=== PATIENT | female | born 1950 | race Caucasian/White ===

== ENCOUNTER 2016-08-26 09:27 | Emergency (ER) | payer OTHER ==
[~2016-08-26] VITALS: Ht 162.6 cm; Wt 81.0 kg
[~2016-08-26 09:27] MED LIST: ASPI81TA28 PO; CARB1SOL OPB; CHOL20005 PO; CLOP1TAB54 PO; DONE1TAB25 PO; FOLI1TAB7 PO; GABA-113 PO; GLCSC500400 PO; HYDR-5688 PO; INSU70IN2 SC; LISI-729 PO; LPT/40 PO; MAGN400T6 PO; METF-384 PO; MIRT30TA PO; MULT60CA PO; PANT40TA PO; ROPI1TAB PO; TRAZ50TA35 PO
[2016-08-26 09:33] VITALS: TEMP 36.9; Ht 162.6 cm; Wt 81.0 kg
[2016-08-26] MEDS ORDERED: LIDOCAINE 4% W/AFRIN NASAL SOLN 4ML EXT STA (09:41)
--- NOTE | 2016-08-26 10:07 | EMERGENCY ROOM VISIT NOTE ---
History Report prepared by Samantha: Fabian Lora Under the Supervision of: Dr. Randal Ye M.D. First contact with patient: 09:40 Chief Complaint: NOSE BLEED (MINOR) Stated Complaint: NOSEBLEED History of Present Illness The patient is a 65 year old female who presents to the Emergency Room with complaints of persistent nose bleeding since 1000 yesterday. The nose was bleeding intermittently yesterday and has been constant this morning. She has been saturating tissues every few hours. She does not have blood draining in her throat. The patient takes Aspirin and Plavix daily, including this morning. The patient cannot recall why she is taking Plavix. She has followed up with an ENT in the past, but neither her nor her son can recall their name. The patient notes that she hit her head several days ago during a fall. Source of History: patient, family (son) Onset: 1000 yesterday Position: nose Quality: other (bleeding) Timing: other (persistent) Review of Systems See HPI for pertinent positives & negatives. A total of 10 systems reviewed and were otherwise negative. Past Medical & Surgical Medical Problems: (1) cardiac history (2) COPD (chronic obstructive pulmonary disease) (3) Diabetes (4) HTN (hypertension) (5) Pneumonia Family History CHF (congestive heart failure) Diabetes mellitus FHx: stroke Heart disease Social History Smoking Status: Former Smoker Alcohol Use: none Drug Use: none Marital Status: Housing Status: other Occupation Status: retired Current/Historical Medications Scheduled Aspirin (Aspirin Ec), 81 MG PO QAM Atorvastatin (Lipitor), 40 MG PO HS Cholecalciferol (Vitamin D3), 2,000 INTERUNIT PO QAM Clopidogrel Bisulfate (Plavix), 75 MG PO QAM Donepezil Hydrochloride (Donepezil Hcl), 5 MG PO HS Folic Acid (Folvite), 1 MG PO QAM Gabapentin (Neurontin), 300 MG PO TID Glucosamine-Chondroitin (Glucosamine & Chondroitin 500-400 mg), 1 CAP PO TID Insulin Isophan/Regular (Novolin 70/30), 75 UNITS SC AMPM Lisinopril (Prinivil), 5 MG PO QAM Magnesium Oxide (Mag-Ox), 400 MG PO QAM Metformin Hcl (Glucophage), 1,000 MG PO BID Mirtazapine (Remeron), 30 MG PO HS Multiple Vitamins W/ Minerals (Preservision Areds 2), 1 CAP PO BID Pantoprazole (Protonix), 40 MG PO QAM Trazodone Hcl (Trazodone), 50 MG PO HS Scheduled PRN Carboxymethylcellulose Sodium (Refresh), 1 DROP OPB QID PRN for DRYNESS Hydrocodone/Acetaminophen 5MG/325MG ([place] 5MG/325MG), 1 TABLET PO Q6H PRN for Pain Ropinirole (Requip), 1 MG PO HS PRN for RLS Allergies Coded Allergies: Methyl Salicylate (Verified Allergy, Unknown, RASH, 08/26/16) Nickel (Verified Allergy, Unknown, RASH, 08/26/16) Zinc (Verified Allergy, Unknown, RASH, 08/26/16) Diphenhydramine (Verified Adverse Reaction, Intermediate, BURNING EYES, DIZZY,BLISTERS, 08/26/16) Physical Exam Vital Signs Date Time Temp Pulse Resp B/P Pulse Ox O2 Delivery O2 Flow Rate FiO2 08/26/16 11:09 78 16 123/50 95 08/26/16 09:33 36.9 81 18 113/69 96 Room Air Physical Exam GENERAL: Patient is a healthy-appearing well-nourished HEAD: Normocephalic atraumatic EYES: Ocular movements intact pupils equal and react to light NOSE: Bleeding from the right nares, no blood running down the back of her throat. OROPHARYNX mucous membranes are moist no exudates present no erythema or edema present, no blood running down the back of her throat. NECK: Supple no nuchal rigidity CHEST: Good equal expansion LUNGS: Clear and equal to auscultation CARDIAC: Normal S1 and S2 ABDOMEN: Soft nontender no guarding BACK: No CVA tenderness EXTREMITIES: No pain upon palpation normal muscle strength in all groups no clubbing cyanosis or edema NEURO: Patient is following commands is answering questions appropriately. Alert and oriented x3 Cranial Nerves 2-12 grossly intact Medical Decision & Procedures ER Provider Diagnostic Interpretation: CT results as stated below per my review and radiologist interpretation: CT HEAD WITHOUT CONTRAST (CT) CLINICAL HISTORY: Head pain status post trauma COMPARISON STUDY: 06/04/2016 TECHNIQUE: Axial CT of the brain is performed from the vertex to the skull base. IV contrast was not administered for this examination. CT DOSE: 614.27 mGy.cm FINDINGS: No intra or extra-axial mass lesions are visualized. There is no CT evidence of acute cortical infarction. There is no evidence of midline shift. There is no acute hemorrhage. No calvarial fractures are visualized. There are minimal white matter hypodensities likely on a small vessel basis. There is no evidence of pathologic ventricular dilatation. Again evident is a probable empty sella. There is no evidence of acute sinusitis IMPRESSION: No acute intracranial findings Electronically signed by: Cristhian Frost M.D. 08/26/2016 10:43 AM Dictated Date/Time: 08/26/2016 10:39 AM Procedure Anterior Nasal Packing Indication: Epistaxis right nares. Verbal consent obtained. Risks and benefits were explained with the usual customary discussion. A time out was taken. Clots were removed with suction. The right naris was prepped with Afrin and lidocaine. A 5.5-cm nasal balloon was placed in a standard fashion. The patient tolerated this well. Hemostasis was achieved. No complications. ED Course 0941: The patient was evaluated by my Nurse Practitioner student. 0956: Past medical records reviewed. The patient was evaluated in room A11b. A complete history and physical examination was performed. 1056: Reassessed the patient. She is not currently experiencing active bleeding. The patient verbalized understanding and agreement of the treatment plan. 1105: The patient is ready for discharge. Medical Decision This is a 65-year-old female who presents emergency department complaining of epistaxis. The bleeding is controlled by tissues upon arrival to the emergency department. The nose was packed as above. The patient was also complaining of head pain after a fall at home. The patient is on Plavix therefore she was sent for CAT scan of the head however this does not show any acute abnormality. After an hour the patient was reassessed the bleeding was still controlled and I felt she was well enough to be discharged home for follow-up with ear nose and throat. Patient was in agreement with the treatment plan. Impression Primary Impression: Head injury Additional Impression: Epistaxis Scribe Attestation The scribe's documentation has been prepared under my direction and personally reviewed by me in its entirety. I confirm that the note above accurately reflects all work, treatment, procedures, and medical decision making performed by me. Departure Information Dispostion Home / Self-Care Referrals Maury Bond M.D. (PCP) Forms HOME CARE DOCUMENTATION FORM, IMPORTANT VISIT INFORMATION, WORK / SCHOOL INSTRUCTIONS Patient Instructions ED Nasal Packing Anterior Removable, ED Nosebleed, [facility] Additional Instructions Follow up with DR Antunez's office You have been examined and treated today on an emergency basis only. This is not a substitute for, or an effort to provide, complete comprehensive medical care. It is impossible to recognize and treat all injuries or illnesses in a single emergency department visit. It is therefore important that you follow up closely with your PCP. Call as soon as possible for an appointment. Thank you for your time and consideration. I look forward to speaking with you again soon. Please don't hesitate to call us if you have any questions. Problem Qualifiers Primary Impression: Head injury Encounter type: initial encounter Qualified Codes: S09.90XA - Unspecified injury of head, initial encounter
--- NOTE | 2016-08-26 10:45 | DIAGNOSTIC IMAGING REPORT ---
CT HEAD WITHOUT CONTRAST (CT) CLINICAL HISTORY: Head pain status post trauma COMPARISON STUDY: 06/04/2016 TECHNIQUE: Axial CT of the brain is performed from the vertex to the skull base. IV contrast was not administered for this examination. CT DOSE: 614.27 mGy.cm FINDINGS: No intra or extra-axial mass lesions are visualized. There is no CT evidence of acute cortical infarction. There is no evidence of midline shift. There is no acute hemorrhage. No calvarial fractures are visualized. There are minimal white matter hypodensities likely on a small vessel basis. There is no evidence of pathologic ventricular dilatation. Again evident is a probable empty sella. There is no evidence of acute sinusitis IMPRESSION: No acute intracranial findings Electronically signed by: Cristhian Frost M.D. 08/26/2016 10:43 AM Dictated Date/Time: 08/26/2016 10:39 AM
[2016-08-26 11:09] VITALS: BP 123/50; PULSE 78; O2SAT 95
[2016-08-26] MEDS ORDERED: GLUC1CAP33 PO (11:14)
[2017-04-21] MEDS ORDERED: FERR324T PO (16:02)
[2017-04-21] MEDS ORDERED: NADO20TA PO (16:02)
[2017-04-21] MEDS ORDERED: HYDR-5688 PO (16:02)
[2017-04-21] MEDS ORDERED: DICL1GEL12 EXT (16:17)
== END 2016-08-26 11:21 | disposition home or self-care (01) ==
LOC: C.EDB 09:30 → C.EDA 11:21
DX: S09.90XA Unspecified injury of head, initial encounter (principal); R04.0 Epistaxis; W19.XXXA Unspecified fall, initial encounter; J44.9 Chronic obstructive pulmonary disease, unspecified; E11.9 Type 2 diabetes mellitus without complications; I10 Essential (primary) hypertension; Z82.49 Family history of ischemic heart disease and other diseases of the circulatory system; Z83.3 Family history of diabetes mellitus; Z82.3 Family history of stroke; Z87.891 Personal history of nicotine dependence; Z79.82 Long term (current) use of aspirin; Z79.4 Long term (current) use of insulin

== ENCOUNTER → 2017-03-24 | Outpatient (CLI) | payer OTHER ==
[~2017-03-24] MED LIST changes: +DICL1GEL12 EXT; +DOCU100C31 PO; +FERR324T PO; +FRRS300 PO; +GLC500 PO; -GLCSC500400 PO; +GLUC1CAP33 PO; +INSDGIPEN SC; +LCTL45 PO; +LISI-789 PO; +LSN25 PO; +NADO20TA PO; +NRN300 PO; +NVLGIPEN SC; +PLV75 PO; +ROPI0.5T PO
[2017-03-24 18:20] LABS: BLOOD UREA NITROGEN 12 mg/dl (7-18); BUN/CREATININE RATIO 14.8 (10-20); CALCIUM 9.2 mg/dl (8.5-10.1); CARBON DIOXIDE 24 mmol/L (21-32); CHLORIDE 110 mmol/L (98-107); CREATININE 0.79 mg/dl (0.60-1.20); GLUCOSE 178 mg/dl (70-99); POTASSIUM 4.1 mmol/L (3.5-5.1); SODIUM 141 mmol/L (136-145)
[2017-03-24 18:22] LABS: HEMATOCRIT 25.2 % (37-47); MEAN CELL VOLUME 101.6 fL (80-100); MEAN CORPUSCULAR HGB CONC 30.6 g/dl (32-36); MEAN PLATELET VOLUME 10.3 fL (7.4-10.4); PLATELET COUNT 92 K/uL (130-400); PLT ESTIMATE DECREASED; RED BLOOD COUNT 2.48 M/uL (4.2-5.4); WHITE BLOOD COUNT 3.78 K/uL (4.8-10.8)
[2017-03-24 18:25] LABS: CHOLESTEROL 93 mg/dl (0-200); FERRITIN 6.2 ng/ml (8.0-388.0); HDL CHOLESTEROL 31 mg/dl; LDL CHOLESTEROL CALCULATED 34 mg/dl; TRIGLYCERIDES 141 mg/dl (0-150); VERY LOW DENSITY LIPOPROT CALC 28 mg/dl
[2017-03-25 07:05] LABS: ESTIMATED AVERAGE GLUCOSE 160 mg/dl; HA1C FLAG Normal (Normal)
== END | disposition home or self-care (01) ==
LOC: C.LABPVFM 14:50
PROVIDERS: ATTEND Family Medicine
DX: E83.110 Hereditary hemochromatosis (principal); E11.39 Type 2 diabetes mellitus with other diabetic ophthalmic complication; E78.5 Hyperlipidemia, unspecified

== ENCOUNTER 2017-04-17 09:59 | Inpatient (IN) | payer OTHER ==
[~2017-04-17] VITALS: Ht 162.6 cm; Wt 85.4 kg
[~2017-04-17 09:59] MED LIST changes: -DICL1GEL12 EXT; -DOCU100C31 PO; -FERR324T PO; -FRRS300 PO; -GLC500 PO; -INSDGIPEN SC; -LCTL45 PO; -LISI-789 PO; -LSN25 PO; -NADO20TA PO; -NRN300 PO; -NVLGIPEN SC; -PLV75 PO; -ROPI0.5T PO
--- NOTE | 2017-04-17 10:41 | DIAGNOSTIC IMAGING REPORT ---
CHEST ONE VIEW PORTABLE CLINICAL HISTORY: Change in mental status COMPARISON STUDY: 06/04/2016 FINDINGS: The cardiac and mediastinal contours remain stable. There are improving bibasal atelectatic changes. There is no lobar consolidation. There is no failure. There are no pleural effusions.[ IMPRESSION: No active disease in the chest. Electronically signed by: Cristhian Frost M.D. 04/17/2017 10:40 AM Dictated Date/Time: 04/17/2017 10:39 AM
[2017-04-17 11:01] LABS: HEMATOCRIT 24.4 % (37-47); MEAN CELL VOLUME 96.1 fL (80-100); MEAN CORPUSCULAR HEMOGLOBIN 31.1 pg (25-34); MEAN CORPUSCULAR HGB CONC 32.4 g/dl (32-36); RED BLOOD COUNT 2.54 M/uL (4.2-5.4); WHITE BLOOD COUNT 3.01 K/uL (4.8-10.8)
[2017-04-17 11:03] LABS: MEAN PLATELET VOLUME 9.9 fL (7.4-10.4); PLATELET COUNT 80 K/uL (130-400)
[2017-04-17 11:09] LABS: INR 1.2 (0.9-1.1); PROTHROMBIN TIME (PATIENT) 13.2 SECONDS (9.0-12.0)
[2017-04-17 11:11] LABS: URINE APPEARANCE CLEAR (CLEAR); URINE BILIRUBIN NEG (NEG); URINE COLOR YELLOW; URINE NITRITE NEG (NEG); URINE PH 6.5 (4.5-7.5); URINE SPECIFIC GRAVITY 1.014 (1.000-1.030); UROBILINOGEN NEG (NEG)
--- NOTE | 2017-04-17 11:11 | DIAGNOSTIC IMAGING REPORT ---
CT HEAD WITHOUT CONTRAST (CT) CLINICAL HISTORY: Altered mental status. Weakness. Syncope with head trauma. COMPARISON STUDY: 08/26/2016 TECHNIQUE: Axial CT of the brain is performed from the vertex to the skull base. IV contrast was not administered for this examination. A dose lowering technique was utilized adhering to the principles of ALARA. CT DOSE: FINDINGS: No intra or extra-axial mass lesions are visualized. There is no CT evidence of acute cortical infarction. There is no evidence of midline shift. There is no acute hemorrhage. No calvarial fractures are visualized. There are minimal white matter hypodensities likely on a small vessel basis. There is no evidence of pathologic ventricular dilatation. Again evident is a probable empty sella. There is no evidence of acute sinusitis. IMPRESSION: No acute intracranial findings Electronically signed by: Cristhian Frost M.D. 04/17/2017 11:09 AM Dictated Date/Time: 04/17/2017 11:07 AM
[2017-04-17 11:19] LABS: MANUAL MICROSCOPIC REQUIRED? NO; REVIEW REQ? NO
[2017-04-17 11:19] LABS: ALT/SGPT 32 U/L (12-78); BLOOD UREA NITROGEN 7 mg/dl (7-18); BUN/CREATININE RATIO 9.6 (10-20); CALCIUM 8.7 mg/dl (8.5-10.1); CARBON DIOXIDE 25 mmol/L (21-32); CHLORIDE 113 mmol/L (98-107); CREATININE 0.73 mg/dl (0.60-1.20); GLUCOSE 212 mg/dl (70-99); SODIUM 145 mmol/L (136-145)
--- NOTE | 2017-04-17 11:20 | DIAGNOSTIC IMAGING REPORT ---
CT SCAN OF THE ABDOMEN AND PELVIS WITHOUT CONTRAST CLINICAL HISTORY: diffuse pain. syncope COMPARISON STUDY: 06/04/2016 TECHNIQUE: CT scan of the abdomen and pelvis was performed from the lung bases to the proximal femurs. Images are reviewed in the axial, sagittal, and coronal planes. IV contrast was not administered for this examination. A dose lowering technique was utilized adhering to the principles of ALARA. CT DOSE: FINDINGS: Lower chest: There is mild dependent atelectatic change Liver: The liver has a cirrhotic morphology. There is minor perihepatic fluid. No space-occupying masses are visualized in this noncontrast study. Gallbladder: Cholelithiasis. Minimal pericholecystic fluid, is likely related to cirrhosis. Spleen: The spleen is enlarged measuring 15.4 cm. There are perisplenic and perigastric varices. Pancreas: Unremarkable. Adrenal glands: Unremarkable. Kidneys: There are multiple bilateral cysts and hyperdense cysts. There is a layering calcification within a 41 mm hyperdense left renal cyst. There is right renal cortical scarring. There are nonobstructing right renal calculi. Bowel: There are no transition zones to indicate bowel obstruction. There is no acute diverticulitis. There is no evidence of acute appendicitis. Peritoneum: There is trace ascites. There is no free intraperitoneal air. There are multiple venous collaterals consistent with portal hypertension. Vasculature: The abdominal aorta is normal in course and caliber. Adenopathy: None. Pelvic viscera: The uterus appears surgically absent. Skeletal structures: No destructive osseous lesions are seen. IMPRESSION: 1. Study limited due to the lack of intravenous or oral administered contrast 2. No evidence of bowel obstruction. No evidence of free air 3. No evidence of acute appendicitis. No evidence of acute diverticulitis 4. Cholelithiasis 5. Nonobstructing right renal calculi 6. Cirrhotic liver morphology with evidence of portal hypertension, splenorenal varices, splenomegaly, and omental collaterals. 7. Multiple cysts and hyperdense renal cysts. Electronically signed by: Cristhian Frost M.D. 04/17/2017 11:18 AM Dictated Date/Time: 04/17/2017 11:10 AM
--- NOTE | 2017-04-17 11:24 | DIAGNOSTIC IMAGING REPORT ---
CT OF THE CERVICAL SPINE CLINICAL HISTORY: Neck pain status post trauma COMPARISON STUDY: 11/16/2013 CT DOSE: 2054.76 mGy.cm TECHNIQUE: CT scan of the cervical spine was performed from the skull base to the thoracic inlet. Images are reviewed in the axial, sagittal, and coronal planes. IV contrast was not administered for this examination. A dose lowering technique was utilized adhering to the principles of ALARA. FINDINGS: There is biapical emphysema. No pneumothorax is visualized. The prevertebral soft tissues are normal. No fractures or subluxations are visualized. There are multilevel degenerative changes most pronounced the C5-6 and C6-7 levels. There is a stable 12 mm C7 lytic focus. IMPRESSION: 1. No acute fractures or subluxations identified 2. Degenerative changes most pronounced C5-6 and C6-7 levels 3. Stable (since October 2013) 12 mm C7 lytic focus. The three-year stability strongly favors a benign process. Electronically signed by: Cristhian Frost M.D. 04/17/2017 11:23 AM Dictated Date/Time: 04/17/2017 11:19 AM
[2017-04-17 11:27] LABS: ALKALINE PHOSPHATASE 121 U/L (45-117); AST/SGOT 62 U/L (15-37); CKMB/CK RATIO 1.1 (0-3.0); PHOSPHORUS 2.2 mg/dl (2.5-4.9)
[2017-04-17] MEDS ORDERED: LISI-789 PO (11:27)
[2017-04-17] MEDS ORDERED: SODIUM CHLORIDE 0.9% 500ML 500 ML IV STA (11:28)
[2017-04-17] MEDS ORDERED: PANTOprazole INJ 40 MG in SYRINGE 0 ML IV ONE (11:30)
[2017-04-17 11:47] LABS: BASO % 0.3 %; BASO ABS # 0.01 K/uL (0-0.2); COMPLETE YES; EOS % 2.3 %; LYMPH % 35.5 %; LYMPH ABS # 1.07 K/uL (1.2-3.4); MONO % 7.6 %; NEUT % 54.3 %; OVALOCYTES 1+
--- NOTE | 2017-04-17 12:11 | EMERGENCY ROOM VISIT NOTE ---
History Report prepared by Samantha: Mateo Burton Under the Supervision of: Dr. Berto Villatoro D.O. First contact with patient: 10:12 Chief Complaint: SYNCOPE Stated Complaint: PASSED OUT THIS AM, HIT HEAD, DIZZY History of Present Illness The patient is a 66 year old female who presents to the Emergency Room for evaluation of a syncopal episode occurring shortly prior to arrival. She states that she got out of bed this morning because she felt thirsty, and fell upon standing. She believes she hit her head on the fall. The patient also complains of chest pain, cough, dark colored stool, SOB, back pain, and abdominal pain. She states that she feels dizzy upon standing currently. She denies any fevers. Source of History: patient Onset: Shortly prior to arrival Quality: other (syncope) Timing: other (episode) Associated Symptoms: + cough, + chest pain, + SOB, + abdominal pain, + back pain, + melena, No fevers Note: The patient also complains of dizziness with standing. Review of Systems See HPI for pertinent positives & negatives. A total of 10 systems reviewed and were otherwise negative. Past Medical & Surgical Medical Problems: (1) cardiac history (2) COPD (chronic obstructive pulmonary disease) (3) Diabetes (4) HTN (hypertension) (5) Pneumonia Family History CHF (congestive heart failure) Diabetes mellitus FHx: stroke Heart disease Social History Smoking Status: Former Smoker Alcohol Use: none Drug Use: none Marital Status: Housing Status: other Occupation Status: retired Current/Historical Medications Scheduled Aspirin (Aspirin Ec), 81 MG PO QAM Atorvastatin (Lipitor), 40 MG PO HS Cholecalciferol (Vitamin D3), 2,000 INTERUNIT PO QAM Clopidogrel Bisulfate (Plavix), 75 MG PO QAM Donepezil Hydrochloride (Donepezil Hcl), 5 MG PO HS Folic Acid (Folvite), 1 MG PO QAM Gabapentin (Neurontin), 300 MG PO TID Glucosamine-Chondroitin (Glucosamine & Chondroitin 500-400 mg), 1 CAP PO TID Insulin Isophan/Regular (Novolin 70/30), 75 UNITS SC AMPM Lisinopril (Zestril), 2.5 MG PO DAILY Magnesium Oxide (Mag-Ox), 400 MG PO QAM Metformin Hcl (Glucophage), 1,000 MG PO BID Mirtazapine (Remeron), 30 MG PO HS Multiple Vitamins W/ Minerals (Preservision Areds 2), 1 CAP PO BID Pantoprazole (Protonix), 40 MG PO QAM Trazodone Hcl (Trazodone), 50 MG PO HS Scheduled PRN Carboxymethylcellulose Sodium (Refresh), 1 DROP OPB QID PRN for DRYNESS Hydrocodone/Acetaminophen 5MG/325MG ([place] 5MG/325MG), 1 TABLET PO Q6H PRN for Pain Ropinirole (Requip), 1 MG PO HS PRN for RLS Allergies Coded Allergies: Methyl Salicylate (Verified Allergy, Unknown, RASH, 04/17/17) Nickel (Verified Allergy, Unknown, RASH, 04/17/17) Zinc (Verified Allergy, Unknown, RASH, 04/17/17) Diphenhydramine (Verified Adverse Reaction, Intermediate, BURNING EYES, DIZZY,BLISTERS, 04/17/17) Physical Exam Vital Signs Date Time Temp Pulse Resp B/P (MAP) Pulse Ox O2 Delivery O2 Flow Rate FiO2 04/17/17 11:11 82 16 120/58 98 04/17/17 11:00 82 04/17/17 10:28 Room Air 04/17/17 10:24 82 139/58 85 148/60 88 154/64 04/17/17 10:05 36.8 80 20 124/66 97 Room Air Physical Exam GENERAL: Patient is awake, alert, and in no acute distress. Somewhat listless appearing, but does not appear to be in pain. EYES: The conjunctivae are clear. The pupils are round and reactive. EARS, NOSE, MOUTH AND THROAT: The nose is without any evidence of any deformity. Mucous membranes are moist tongue is midline NECK: The neck is nontender and supple. RESPIRATORY: Diminished throughout. No tachypnea or conversational dyspnea noted. CARDIOVASCULAR: Regular rate and rhythm noted there no murmurs rubs or gallops normal S1 normal S2 GASTROINTESTINAL: Bowel sounds are present in all quadrants. Moderately distended with diffuse tenderness. No guarding or rigidity. RECTAL: brown stool. Strongly heme positive. MUSCULOSKELETAL/EXTREMITIES: There is no evidence of gross deformity full range of motion is noted in the hips and shoulders SKIN: There is no obvious evidence of any rash. There are no petechiae, pallor or cyanosis noted. NEUROLOGIC: Patient is awake alert and oriented x3. Medical Decision & Procedures ER Provider Diagnostic Interpretation: Radiology results as stated below per my review and radiologist interpretation: CT HEAD WITHOUT CONTRAST (CT) FINDINGS: No intra or extra-axial mass lesions are visualized. There is no CT evidence of acute cortical infarction. There is no evidence of midline shift. There is no acute hemorrhage. No calvarial fractures are visualized. There are minimal white matter hypodensities likely on a small vessel basis. There is no evidence of pathologic ventricular dilatation. Again evident is a probable empty sella. There is no evidence of acute sinusitis. IMPRESSION: No acute intracranial findings Electronically signed by: Cristhian Frost M.D. 04/17/2017 11:[address] SCAN OF THE ABDOMEN AND PELVIS WITHOUT CONTRAST FINDINGS: Lower chest: There is mild dependent atelectatic change Liver: The liver has a cirrhotic morphology. There is minor perihepatic fluid. No space-occupying masses are visualized in this noncontrast study. Gallbladder: Cholelithiasis. Minimal pericholecystic fluid, is likely related to cirrhosis. Spleen: The spleen is enlarged measuring 15.4 cm. There are perisplenic and perigastric varices. Pancreas: Unremarkable. Adrenal glands: Unremarkable. Kidneys: There are multiple bilateral cysts and hyperdense cysts. There is a layering calcification within a 41 mm hyperdense left renal cyst. There is right renal cortical scarring. There are nonobstructing right renal calculi. Bowel: There are no transition zones to indicate bowel obstruction. There is no acute diverticulitis. There is no evidence of acute appendicitis. Peritoneum: There is trace ascites. There is no free intraperitoneal air. There are multiple venous collaterals consistent with portal hypertension. Vasculature: The abdominal aorta is normal in course and caliber. Adenopathy: None. Pelvic viscera: The uterus appears surgically absent. Skeletal structures: No destructive osseous lesions are seen. IMPRESSION: 1. Study limited due to the lack of intravenous or oral administered contrast 2. No evidence of bowel obstruction. No evidence of free air 3. No evidence of acute appendicitis. No evidence of acute diverticulitis 4. Cholelithiasis 5. Nonobstructing right renal calculi 6. Cirrhotic liver morphology with evidence of portal hypertension, splenorenal varices, splenomegaly, and omental collaterals. 7. Multiple cysts and hyperdense renal cysts. Electronically signed by: Cristhian Frost M.D. 04/17/2017 11:[address] OF THE CERVICAL SPINE FINDINGS: There is biapical emphysema. No pneumothorax is visualized. The prevertebral soft tissues are normal. No fractures or subluxations are visualized. There are multilevel degenerative changes most pronounced the C5-6 and C6-7 levels. There is a stable 12 mm C7 lytic focus. IMPRESSION: 1. No acute fractures or subluxations identified 2. Degenerative changes most pronounced C5-6 and C6-7 levels 3. Stable (since October 2013) 12 mm C7 lytic focus. The three-year stability strongly favors a benign process. Electronically signed by: Cristhian Frost M.D. 04/17/2017 11:23 AM CHEST ONE VIEW PORTABLE FINDINGS: The cardiac and mediastinal contours remain stable. There are improving bibasal atelectatic changes. There is no lobar consolidation. There is no failure. There are no pleural effusions.[ IMPRESSION: No active disease in the chest. Electronically signed by: Cristhian Frost M.D. 04/17/2017 10:40 AM Laboratory Results 04/17/17 10:44 Red Blood Count 2.54, Mean Corpuscular Volume 96.1, Mean Corpuscular Hemoglobin 31.1, Mean Corpuscular Hemoglobin Concent 32.4, Mean Platelet Volume 9.9, Neutrophils (%) (Auto) 54.3, Lymphocytes (%) (Auto) 35.5, Monocytes (%) (Auto) 7.6, Eosinophils (%) (Auto) 2.3, Basophils (%) (Auto) 0.3, Neutrophils # (Auto) 1.63, Lymphocytes # (Auto) 1.07, Monocytes # (Auto) 0.23, Eosinophils # (Auto) 0.07, Basophils # (Auto) 0.01 04/17/17 10:44 Test 04/17/17 10:30 04/17/17 10:44 04/17/17 10:47 04/17/17 12:45 Bedside Glucose 240 mg/dl (70-90) White Blood Count 3.01 K/uL (4.8-10.8) Red Blood Count 2.54 M/uL (4.2-5.4) Hemoglobin 7.9 g/dL (12.0-16.0) Hematocrit 24.4 % (37-47) Mean Corpuscular Volume 96.1 fL (80-100) Mean Corpuscular Hemoglobin 31.1 pg (25-34) Mean Corpuscular Hemoglobin Concent 32.4 g/dl (32-36) Platelet Count 80 K/uL (130-400) Mean Platelet Volume 9.9 fL (7.4-10.4) Neutrophils (%) (Auto) 54.3 % Lymphocytes (%) (Auto) 35.5 % Monocytes (%) (Auto) 7.6 % Eosinophils (%) (Auto) 2.3 % Basophils (%) (Auto) 0.3 % Neutrophils # (Auto) 1.63 K/uL (1.4-6.5) Lymphocytes # (Auto) 1.07 K/uL (1.2-3.4) Monocytes # (Auto) 0.23 K/uL (0.11-0.59) Eosinophils # (Auto) 0.07 K/uL (0-0.5) Basophils # (Auto) 0.01 K/uL (0-0.2) RDW Standard Deviation 54.3 fL (36.4-46.3) RDW Coefficient of Variation 15.5 % (11.5-14.5) Immature Granulocyte % (Auto) 0.0 % Immature Granulocyte # (Auto) 0.00 K/uL (0.00-0.02) Ovalocytes 1+ Prothrombin Time 13.2 SECONDS (9.0-12.0) Prothromb Time International Ratio 1.2 (0.9-1.1) Activated Partial Thromboplast Time 26.9 SECONDS (21.0-31.0) Partial Thromboplastin Ratio 1.0 Anion Gap 7.0 mmol/L (3-11) Estimated GFR () 98.8 Estimated GFR (Non- 85.2 BUN/Creatinine Ratio 9.6 (10-20) Calcium Level 8.7 mg/dl (8.5-10.1) Phosphorus Level 2.2 mg/dl (2.5-4.9) Magnesium Level 2.0 mg/dl (1.8-2.4) Total Bilirubin 0.8 mg/dl (0.2-1) Direct Bilirubin 0.3 mg/dl (0-0.2) Aspartate Amino Transf (AST/SGOT) 62 U/L (15-37) Alanine Aminotransferase (ALT/SGPT) 32 U/L (12-78) Alkaline Phosphatase 121 U/L (45-117) Total Creatine Kinase 154 U/L (26-192) Creatine Kinase MB 1.7 ng/ml (0.5-3.6) Creatine Kinase MB Ratio 1.1 (0-3.0) Troponin I < 0.015 ng/ml (0-0.045) Pro-B-Type Natriuretic Peptide 93 pg/ml (0-900) Total Protein 6.7 gm/dl (6.4-8.2) Albumin 2.8 gm/dl (3.4-5.0) Lipase 294 U/L (73-393) Thyroid Stimulating Hormone (TSH) 3.160 uIu/ml (0.300-4.500) Urine Color YELLOW Urine Appearance CLEAR (CLEAR) Urine pH 6.5 (4.5-7.5) Urine Specific [place] 1.014 (1.000-1.030) Urine Protein NEG (NEG) Urine Glucose (UA) NEG (NEG) Urine Ketones NEG (NEG) Urine Occult Blood NEG (NEG) Urine Nitrite NEG (NEG) Urine Bilirubin NEG (NEG) Urine Urobilinogen NEG (NEG) Urine Leukocyte Esterase TRACE (NEG) Urine WBC (Auto) 1-5 /hpf (0-5) Urine RBC (Auto) 0-4 /hpf (0-4) Urine Hyaline Casts (Auto) 1-5 /lpf (0-5) Urine Epithelial Cells (Auto) 10-20 /lpf (0-5) Urine Bacteria (Auto) NEG (NEG) Laboratory results per my review. Medications Administered Medications (Trade) Dose Ordered Sig/Kole Route Start Time Stop Time Status Last Admin Dose Admin Sodium Chloride 500 ml @ 999 mls/hr Q31M STAT IV 04/17/17 11:28 04/17/17 11:58 DC 04/17/17 11:56 999 MLS/HR Pantoprazole Sodium 40 mg/ Syringe 10 ml @ 5 mls/min NOW ONCE IV 04/17/17 11:30 04/17/17 11:31 DC 04/17/17 11:57 5 MLS/MIN ECG Indication: syncope Rate (beats per minute): 82 Rhythm: sinus rhythm Findings: no acute ischemic change, no ectopy Comparison ECG Date: Jun 04, 2016 Change: no significant change ED Course 1018: The patient was evaluated in room C8. A complete history and physical examination were performed. 1128: Ordered NSS 500 ml @ 999 mls/hr IV, Pantoprazole Sodium 40 mg/Syringe 10 mL @ 5 mL/min IV. 1202: Upon reevaluation, the patient is resting comfortably. I discussed results and treatment plan with her. She verbalizes agreement and understanding. I spoke with Dr. Alexis of the [facility] [place] [facility]. The patient will be evaluated for further management and care. Medical Decision Differential diagnosis: Etiologies such as vasovagal event, infection, hypoglycemia, electrolyte abnormalities, cardiac sources, intracerebral event, toxicologic, neurologic, as well as others were entertained. Nursing notes reviewed. Additional history is obtained from the patient's son. The patient is a 66-year-old female who presented to the emergency department for an evaluation after having a syncopal event. The patient was found have anemia as well as heme positive stool. According to her son she has a follow-up appointment with a bucket turner. Today she was getting out of bed and became dizzy. She had a syncopal episode. The patient was reevaluated multiple times. She was treated with an IV fluid bolus as well as Protonix. I discussed patient's laboratory and radiographic studies with her. Because of her anemia and other symptoms I did discuss his case with the on-call [facility] hospitalist. They've agreed to evaluate the patient in the emergency department for further management and disposition. Medication Reconcilliation Current Medication List: was personally reviewed by me Blood Pressure Screening Patient's blood pressure: Elevated blood pressure Blood pressure disposition: Elevated BP felt to be situational Impression Primary Impression: Syncope Additional Impressions: Anemia GI bleeding Head injury Scribe Attestation The scribe's documentation has been prepared under my direction and personally reviewed by me in its entirety. I confirm that the note above accurately reflects all work, treatment, procedures, and medical decision making performed by me. Departure Information Dispostion Being Evaluated By Hospitalist Referrals Maury Bond M.D. (PCP) Patient Instructions My [facility] Health Problem Qualifiers Primary Impression: Syncope Syncope type: unspecified Qualified Codes: R55 - Syncope and collapse Additional Impressions: Anemia Anemia type: unspecified type Qualified Codes: D64.9 - Anemia, unspecified GI bleeding GI bleed type/associated pathology: unspecified gastrointestinal hemorrhage type Qualified Codes: K92.2 - Gastrointestinal hemorrhage, unspecified Head injury Encounter type: initial encounter Qualified Codes: S09.90XA - Unspecified injury of head, initial encounter
[2017-04-17] MEDS ORDERED: GLUCAGON FOR INJ 1 MG VIAL SQ PRN (12:45)
[2017-04-17] MEDS ORDERED: GLUCOSE 40% GEL 15 GM TUBE PO PRN (12:45)
[2017-04-17] MEDS ORDERED: ACETAMINOPHEN 325 MG TAB PO PRN (12:45)
[2017-04-17] MEDS ORDERED: ONDANSETRON INJ 2 MG/ML 2 ML VIAL IV PRN (12:45)
[2017-04-17] MEDS ORDERED: GLUCOSE 10 TABS/TUBE PO PRN (12:45)
[2017-04-17] MEDS ORDERED: ROPINIROLE HCL 1 MG TAB PO PRN (12:45)
[2017-04-17] MEDS ORDERED: DEXTROSE 50% 50 ML SYR IV PRN (12:45)
--- NOTE | 2017-04-17 13:15 | History and Physical ---
History & Physical Date & Time of Service: Apr 17, 2017 at 13:03 Chief Complaint: Passed Out This Am, Hit Head, Dizzy Primary Care Physician: Maury Bond M.D. History of Present Illness Source: patient, family (son) Pt is a 66 yo female with hx of COPD, DM II, HTN, dyslipidemia, pancytopenia who presents to ER after sustaining a fall this AM. She states that she got out of bed this morning because she felt thirsty, and fell upon standing. She believes she hit her head on the fall and reports LOC. Fall was witnessed by son who brought pt to ER. Per son, she has had repeated falls in the past few weeks. She reports only dizziness prior to fall and denies any preceding chest pain, shortness of breath, visual changes, vertigo. Pt reports recently following up with her PCP and was found to be anemic. Pt reports follow up with Myriam Rhodes in next 1-2 weeks. Pt denies any bleeding in stools, urine. Past Medical/Surgical History Medical Problems: (1) cardiac history Status: Chronic (2) COPD (chronic obstructive pulmonary disease) Status: Chronic (3) Diabetes Status: Chronic (4) HTN (hypertension) Status: Chronic (5) Pneumonia Status: Resolved Family History CHF (congestive heart failure) Diabetes mellitus FHx: stroke Heart disease Social History Smoking Status: Former Smoker Drug Use: none Marital Status: Housing status: lives with family Occupational Status: retired Immunizations History of Influenza Vaccine: Yes Influenza Vaccine Date: May 29, 2011 History of Tetanus Vaccine?: Yes Tetanus Immunization Date: Sep 29, 2005 History of Pneumococcal: No Pneumococcal Date: Mar 10, 2008 History of Hepatitis B Vaccine: No Multi-Drug Resistant Organisms History of MDRO: No Allergies Coded Allergies: Methyl Salicylate (Verified Allergy, Unknown, RASH, 04/17/17) Nickel (Verified Allergy, Unknown, RASH, 04/17/17) Zinc (Verified Allergy, Unknown, RASH, 04/17/17) Diphenhydramine (Verified Adverse Reaction, Intermediate, BURNING EYES, DIZZY,BLISTERS, 04/17/17) Home Medications Scheduled Aspirin (Aspirin Ec), 81 MG PO QAM Atorvastatin (Lipitor), 40 MG PO HS Cholecalciferol (Vitamin D3), 2,000 INTERUNIT PO QAM Clopidogrel Bisulfate (Plavix), 75 MG PO QAM Donepezil Hydrochloride (Donepezil Hcl), 5 MG PO HS Folic Acid (Folvite), 1 MG PO QAM Gabapentin (Neurontin), 300 MG PO TID Glucosamine-Chondroitin (Glucosamine & Chondroitin 500-400 mg), 1 CAP PO TID Insulin Isophan/Regular (Novolin 70/30), 75 UNITS SC AMPM Lisinopril (Zestril), 2.5 MG PO DAILY Magnesium Oxide (Mag-Ox), 400 MG PO QAM Metformin Hcl (Glucophage), 1,000 MG PO BID Mirtazapine (Remeron), 30 MG PO HS Multiple Vitamins W/ Minerals (Preservision Areds 2), 1 CAP PO BID Pantoprazole (Protonix), 40 MG PO QAM Trazodone Hcl (Trazodone), 50 MG PO HS Scheduled PRN Carboxymethylcellulose Sodium (Refresh), 1 DROP OPB QID PRN for DRYNESS Hydrocodone/Acetaminophen 5MG/325MG ([place] 5MG/325MG), 1 TABLET PO Q6H PRN for Pain Ropinirole (Requip), 1 MG PO HS PRN for RLS Review of Systems Constitutional: + weakness, + fatigue, No fever, No chills Eyes: No worsening of vision, No eye pain, No redness, No discharge Respiratory: No cough, No sputum, No wheezing, No shortness of breath, No dyspnea on exertion Cardiovascular: + edema, No chest pain, No orthopnea, No PND, No claudication Abdomen: No pain, No nausea, No vomiting, No diarrhea Musculoskeletal: + joint pain, No muscle pain, No swelling, No calf pain Genitourinary - Female: No dysuria, No urinary frequency, No urinary urgency, No urinary incontinence Neurologic: No memory loss, No paralysis, No weakness, No numbness/tingling Psychiatric: No depression symptoms, No anhedonism, No anxiety, No insomnia Endocrine: No fatigue, No excessive thirst Integumentary: No rash, No itch Physical Exam Vital Signs Date Time Temp Pulse Resp B/P (MAP) Pulse Ox O2 Delivery O2 Flow Rate FiO2 04/17/17 11:11 82 16 120/58 98 04/17/17 11:00 82 04/17/17 10:28 Room Air 04/17/17 10:24 82 139/58 85 148/60 88 154/64 04/17/17 10:05 36.8 80 20 124/66 97 Room Air General Appearance: WD/WN, + mild distress Head: normocephalic, atraumatic Eyes: PERRL, EOMI, + abnormal sclerae exam (scleral injury from fall, no visual changes) ENT: normal ENT inspection, hearing grossly normal, TMs normal, pharynx normal Neck: supple, no adenopathy, thyroid normal, no JVD Respiratory/Chest: chest non-tender, lungs clear, normal breath sounds, no respiratory distress Cardiovascular: regular rate, rhythm, no edema, no gallop, no JVD Abdomen/GI: normal bowel sounds, non tender Extremities/Musculoskelatal: normal inspection, no calf tenderness, normal capillary refill, + pedal edema Neurologic/Psych: alert, normal mood/affect, normal reflexes Skin: normal color, warm/dry, no rash Lymphatic: no adenopathy Diagnostics Laboratory Results Results Past 24 Hours Test 04/17/17 10:30 04/17/17 10:44 04/17/17 10:47 04/17/17 12:45 Range/Units Bedside Glucose 240 70-90 mg/dl White Blood Count 3.01 4.8-10.8 K/uL Red Blood Count 2.54 4.2-5.4 M/uL Hemoglobin 7.9 12.0-16.0 g/dL Hematocrit 24.4 37-47 % Mean Corpuscular Volume 96.1 80-100 fL Mean Corpuscular Hemoglobin 31.1 25-34 pg Mean Corpuscular Hemoglobin Concent 32.4 32-36 g/dl Platelet Count 80 130-400 K/uL Mean Platelet Volume 9.9 7.4-10.4 fL Neutrophils (%) (Auto) 54.3 % Lymphocytes (%) (Auto) 35.5 % Monocytes (%) (Auto) 7.6 % Eosinophils (%) (Auto) 2.3 % Basophils (%) (Auto) 0.3 % Neutrophils # (Auto) 1.63 1.4-6.5 K/uL Lymphocytes # (Auto) 1.07 1.2-3.4 K/uL Monocytes # (Auto) 0.23 0.11-0.59 K/uL Eosinophils # (Auto) 0.07 0-0.5 K/uL Basophils # (Auto) 0.01 0-0.2 K/uL RDW Standard Deviation 54.3 36.4-46.3 fL RDW Coefficient of Variation 15.5 11.5-14.5 % Immature Granulocyte % (Auto) 0.0 % Immature Granulocyte # (Auto) 0.00 0.00-0.02 K/uL Ovalocytes 1+ Prothrombin Time 13.2 9.0-12.0 SECONDS Prothromb Time International Ratio 1.2 0.9-1.1 Activated Partial Thromboplast Time 26.9 21.0-31.0 SECONDS Partial Thromboplastin Ratio 1.0 Sodium Level 145 136-145 mmol/L Potassium Level 4.0 3.5-5.1 mmol/L Chloride Level 113 98-107 mmol/L Carbon Dioxide Level 25 21-32 mmol/L Anion Gap 7.0 3-11 mmol/L Blood Urea Nitrogen 7 7-18 mg/dl Creatinine 0.73 0.60-1.20 mg/dl Estimated GFR () 98.8 Estimated GFR (Non- 85.2 BUN/Creatinine Ratio 9.6 10-20 Random Glucose 212 70-99 mg/dl Calcium Level 8.7 8.5-10.1 mg/dl Phosphorus Level 2.2 2.5-4.9 mg/dl Magnesium Level 2.0 1.8-2.4 mg/dl Total Bilirubin 0.8 0.2-1 mg/dl Direct Bilirubin 0.3 0-0.2 mg/dl Aspartate Amino Transf (AST/SGOT) 62 15-37 U/L Alanine Aminotransferase (ALT/SGPT) 32 12-78 U/L Alkaline Phosphatase 121 45-117 U/L Total Creatine Kinase 154 26-192 U/L Creatine Kinase MB 1.7 0.5-3.6 ng/ml Creatine Kinase MB Ratio 1.1 0-3.0 Troponin I < 0.015 0-0.045 ng/ml Pro-B-Type Natriuretic Peptide 93 0-900 pg/ml Total Protein 6.7 6.4-8.2 gm/dl Albumin 2.8 3.4-5.0 gm/dl Lipase 294 73-393 U/L Thyroid Stimulating Hormone (TSH) 3.160 0.300-4.500 uIu/ml Urine Color YELLOW Urine Appearance CLEAR CLEAR Urine pH 6.5 4.5-7.5 Urine Specific [place] 1.014 1.000-1.030 Urine Protein NEG NEG Urine Glucose (UA) NEG NEG Urine Ketones NEG NEG Urine Occult Blood NEG NEG Urine Nitrite NEG NEG Urine Bilirubin NEG NEG Urine Urobilinogen NEG NEG Urine Leukocyte Esterase TRACE NEG Urine WBC (Auto) 1-5 0-5 /hpf Urine RBC (Auto) 0-4 0-4 /hpf Urine Hyaline Casts (Auto) 1-5 0-5 /lpf Urine Epithelial Cells (Auto) 10-20 0-5 /lpf Urine Bacteria (Auto) NEG NEG Impression Assessment and Plan Pt is a 66 yo female Acute on chronic anemia in setting of pancytopenia which is not new finding. Will admit to tele at this time and cont to monitor CBC. GI has been consulted. Will also obtain peripheral blood smear, ?MDS component as well, may need hematology referral as well. Pt reports colonoscopy last yr, no active bleeding at that time, few polyps removed. Start on clear liquid diet and protonix 40 mg IV BID. Will also obtain B12, folate and iron studies in addition to retic count. HTN controlled at this time. Cont lisinopril DM II cont novolin at reduced dose, ISS in addition Dyslipidemia cont lipitor Chronic pain cont norco PRN Pt is FULL CODE VTE Prophylaxis VTE Risk Assessment Done? Y/N: Yes Risk Level: Moderate
--- NOTE | 2017-04-17 14:18 | Oncology Consultation ---
Oncology/Heme Consultation Date of Consultation: Apr 17, 2017. Attending Physician: Jose Alexis D.O. Reason for Consultation: Pancytopenia Symptomatic anemia History of Present Illness Ms. Rangel is a 66 year old woman with a history of cirrhosis. She isn't clear of the origin, but based on an old consultation from Dr. Urrutia, her GI, she had autoimmune hepatitis and possibly hemochromatosis. I do not have any documentation of an HFE mutation and the highest ferritin I've seen in the records is less than 300. She has a documented history of esophageal varices and has been pancytopenic since at least 2013. She presents for this hospitalization after feeling very weak and dizzy at home, leading to a fall. She does not recall losing consciousness but did hit her head. CT of the c- spine and head revealed no acute findings and an abdominal/pelvic CT revealed only changes consistent with cirrhosis and splenomegaly. She had a self-limited episode of epistaxis recently, but it was small volume. She also denies hemoptysis, though she does report some cough with purulent sputum for the last 2 days. She also reports black-jose stools for a few days, though she denies sheyla hematochezia. She denies any other recent infectious symptoms, including fevers, rashes, or sweats. She has no lymphadenopathy. She also denies any new medications. Past Medical/Surgical History Medical Problems: (1) Abdominal pain Status: Acute (2) Anemia Status: Acute (3) Back pain Status: Acute (4) Cat bite of left hand with infection Status: Acute (5) Cellulitis of left hand Status: Acute (6) Colitis Status: Acute (7) Epistaxis Status: Acute (8) Fever Status: Acute (9) GI bleeding Status: Acute (10) Head injury Status: Acute (11) Head injury Status: Acute (12) Headache Status: Acute (13) Syncope Status: Acute (14) Weakness Status: Acute Family History CHF (congestive heart failure) Diabetes mellitus FHx: stroke Heart disease Social History Smoking Status: Former Smoker Drug Use: none Marital Status: Housing Status: other Occupation Status: retired Allergies Coded Allergies: Methyl Salicylate (Verified Allergy, Unknown, RASH, 04/17/17) Nickel (Verified Allergy, Unknown, RASH, 04/17/17) Zinc (Verified Allergy, Unknown, RASH, 04/17/17) Diphenhydramine (Verified Adverse Reaction, Intermediate, BURNING EYES, DIZZY,BLISTERS, 04/17/17) Home Medications Scheduled Aspirin (Aspirin Ec), 81 MG PO QAM Atorvastatin (Lipitor), 40 MG PO HS Cholecalciferol (Vitamin D3), 2,000 INTERUNIT PO QAM Clopidogrel Bisulfate (Plavix), 75 MG PO QAM Donepezil Hydrochloride (Donepezil Hcl), 5 MG PO HS Folic Acid (Folvite), 1 MG PO QAM Gabapentin (Neurontin), 300 MG PO TID Glucosamine-Chondroitin (Glucosamine & Chondroitin 500-400 mg), 1 CAP PO TID Insulin Isophan/Regular (Novolin 70/30), 75 UNITS SC AMPM Lisinopril (Zestril), 2.5 MG PO DAILY Magnesium Oxide (Mag-Ox), 400 MG PO QAM Metformin Hcl (Glucophage), 1,000 MG PO BID Mirtazapine (Remeron), 30 MG PO HS Multiple Vitamins W/ Minerals (Preservision Areds 2), 1 CAP PO BID Pantoprazole (Protonix), 40 MG PO QAM Trazodone Hcl (Trazodone), 50 MG PO HS Scheduled PRN Carboxymethylcellulose Sodium (Refresh), 1 DROP OPB QID PRN for DRYNESS Hydrocodone/Acetaminophen 5MG/325MG ([place] 5MG/325MG), 1 TABLET PO Q6H PRN for Pain Ropinirole (Requip), 1 MG PO HS PRN for RLS Current Inpatient Medications Current Inpatient Medications Medications (Trade) Dose Ordered Sig/Kole Route Start Time Stop Time Status Last Admin Dose Admin Atorvastatin Calcium (Lipitor Tab) 40 mg HS PO 04/17/17 21:00 05/17/17 20:59 UNV Folic Acid (Folvite Tab) 1 mg QAM PO 04/18/17 09:00 05/18/17 08:59 UNV Gabapentin (Neurontin Cap) 300 mg TID PO 04/17/17 14:00 05/17/17 13:59 UNV Acetaminophen/ Hydrocodone Bitart ([place] 5/325 Tab) 1 tab Q6H PRN PO 04/17/17 12:45 05/01/17 12:44 UNV Lisinopril (Zestril Tab) 2.5 mg DAILY PO 04/18/17 09:00 05/18/17 08:59 UNV Magnesium Oxide (Mag-Ox Tab) 400 mg QAM PO 04/18/17 09:00 05/18/17 08:59 UNV Mirtazapine (Remeron Tab) 30 mg HS PO 04/17/17 21:00 05/17/17 20:59 UNV Ropinirole HCl (Requip Tab) 1 mg HS PRN PO 04/17/17 12:45 05/17/17 12:44 UNV Trazodone HCl (Desyrel Tab) 50 mg HS PO 04/17/17 21:00 05/17/17 20:59 UNV Non-Formulary Medication (Donepezil Hydrochloride (Donepezil Hcl)) 5 mg HS PO 04/17/17 21:00 05/17/17 20:59 UNV Sodium Chloride 1,000 ml @ 100 mls/hr Q10H IV 04/17/17 12:41 05/17/17 12:40 UNV Acetaminophen (Tylenol Tab) 650 mg Q4H PRN PO 04/17/17 12:45 05/17/17 12:44 UNV Ondansetron HCl (Zofran Inj) 4 mg Q6H PRN IV 04/17/17 12:45 05/17/17 12:44 UNV Insulin Aspart (novoLOG ASPART) SLIDING SCALE If C... ACHS SC 04/17/17 16:00 05/17/17 15:59 UNV Glucose (Glucose 40% Gel) 15-30 GRAMS 15 GRAMS... UD PRN PO 04/17/17 12:45 05/17/17 12:44 UNV Glucose (Glucose Chew Tab) 4-8 Tablets 4 Tabl... UD PRN PO 04/17/17 12:45 05/17/17 12:44 UNV Dextrose (Dextrose 50% 50ML Syringe) 25-50ML OF 50% DW IV FOR... UD PRN IV 04/17/17 12:45 05/17/17 12:44 UNV Glucagon (Glucagon Inj) 1 mg UD PRN SQ 04/17/17 12:45 05/17/17 12:44 UNV Pantoprazole Sodium 40 mg/ Syringe 10 ml @ 5 mls/min DAILY@09,21 IV 04/17/17 21:00 05/17/17 20:59 UNV Insulin Human Isoph/Insulin Regular (novoLIN 70/30 REGULAR) 35 units BID SC 04/17/17 21:00 05/17/17 20:59 UNV Review of Systems Constitutional: + weakness, + fatigue, No fever, No chills ENT: + unusual epistaxis (self-limited, small volume) Respiratory: + cough, + sputum (purulent), No shortness of breath, No hemoptysis Cardiovascular: No chest pain Abdomen: + GI bleeding (possible melanotic stools), No pain, No nausea, No vomiting Genitourinary - Female: No dysuria, No hematuria Hematologic / Lymphatic: No abnormal bleeding/bruising, No swollen lymph nodes Integumentary: No rash Physical Exam Date Time Temp Pulse Resp B/P (MAP) Pulse Ox O2 Delivery O2 Flow Rate FiO2 04/17/17 13:29 77 18 131/77 98 04/17/17 11:11 82 16 120/58 98 04/17/17 11:00 82 04/17/17 10:28 Room Air 04/17/17 10:24 82 139/58 85 148/60 88 154/64 04/17/17 10:05 36.8 80 20 124/66 97 Room Air General Appearance: no apparent distress, + pertinent finding (chronically ill- appearing) Eyes: sclerae normal (anicteric), + abnormal sclerae exam (conjunctival hemorrhage from her fall) ENT: + pertinent finding (dry mucous membranes) Respiratory/Chest: lungs clear Cardiovascular: regular rate, rhythm, no murmur Abdomen/GI: non tender, soft Extremities/Musculoskelatal: no pedal edema Neurologic/Psych: alert, oriented x 3 Laboratory Results Last 24 Hours Test 04/17/17 10:30 04/17/17 10:44 04/17/17 10:47 04/17/17 12:45 Bedside Glucose 240 mg/dl White Blood Count 3.01 K/uL Red Blood Count 2.54 M/uL Hemoglobin 7.9 g/dL Hematocrit 24.4 % Mean Corpuscular Volume 96.1 fL Mean Corpuscular Hemoglobin 31.1 pg Mean Corpuscular Hemoglobin Concent 32.4 g/dl Platelet Count 80 K/uL Mean Platelet Volume 9.9 fL Neutrophils (%) (Auto) 54.3 % Lymphocytes (%) (Auto) 35.5 % Monocytes (%) (Auto) 7.6 % Eosinophils (%) (Auto) 2.3 % Basophils (%) (Auto) 0.3 % Neutrophils # (Auto) 1.63 K/uL Lymphocytes # (Auto) 1.07 K/uL Monocytes # (Auto) 0.23 K/uL Eosinophils # (Auto) 0.07 K/uL Basophils # (Auto) 0.01 K/uL RDW Standard Deviation 54.3 fL RDW Coefficient of Variation 15.5 % Immature Granulocyte % (Auto) 0.0 % Immature Granulocyte # (Auto) 0.00 K/uL Ovalocytes 1+ Prothrombin Time 13.2 SECONDS Prothromb Time International Ratio 1.2 Activated Partial Thromboplast Time 26.9 SECONDS Partial Thromboplastin Ratio 1.0 Sodium Level 145 mmol/L Potassium Level 4.0 mmol/L Chloride Level 113 mmol/L Carbon Dioxide Level 25 mmol/L Anion Gap 7.0 mmol/L Blood Urea Nitrogen 7 mg/dl Creatinine 0.73 mg/dl Estimated GFR () 98.8 Estimated GFR (Non- 85.2 BUN/Creatinine Ratio 9.6 Random Glucose 212 mg/dl Calcium Level 8.7 mg/dl Phosphorus Level 2.2 mg/dl Magnesium Level 2.0 mg/dl Total Bilirubin 0.8 mg/dl Direct Bilirubin 0.3 mg/dl Aspartate Amino Transf (AST/SGOT) 62 U/L Alanine Aminotransferase (ALT/SGPT) 32 U/L Alkaline Phosphatase 121 U/L Total Creatine Kinase 154 U/L Creatine Kinase MB 1.7 ng/ml Creatine Kinase MB Ratio 1.1 Troponin I < 0.015 ng/ml Pro-B-Type Natriuretic Peptide 93 pg/ml Total Protein 6.7 gm/dl Albumin 2.8 gm/dl Lipase 294 U/L Thyroid Stimulating Hormone (TSH) 3.160 uIu/ml Urine Color YELLOW Urine Appearance CLEAR Urine pH 6.5 Urine Specific [place] 1.014 Urine Protein NEG Urine Glucose (UA) NEG Urine Ketones NEG Urine Occult Blood NEG Urine Nitrite NEG Urine Bilirubin NEG Urine Urobilinogen NEG Urine Leukocyte Esterase TRACE Urine WBC (Auto) 1-5 /hpf Urine RBC (Auto) 0-4 /hpf Urine Hyaline Casts (Auto) 1-5 /lpf Urine Epithelial Cells (Auto) 10-20 /lpf Urine Bacteria (Auto) NEG Test 04/17/17 13:15 04/17/17 13:16 Transferrin % Saturation % Assessment & Plan Ms. Rangel is a 66 year old woman with a history of cirrhosis secondary to autoimmune hepatitis and, possibly, hemochromatosis. This has resulted in chronic, mostly stable pancytopenia since at least 2013. She presents today with dizziness, fatigue, and weakness that led to a fall with head trauma. She has no acute findings on imaging, but was more anemic than her baseline. I would transfuse her, as her hemoglobin is in the 7s and may be causing some of her symptoms. She reports some black stools and has documented esophageal varices, so I would check a fecal occult blood and consult gastroenterology ( she is known to Dr. Urrutia). Hematinics have been ordered and I will follow them and we should replete them if they are abnormal. However, all of her cytopenias can be explained by liver disease and hypersplenism. I would not consider a primary marrow disorder likely, unless other findings suggest one, and would not perform a bone marrow biopsy. I will continue to follow.
[2017-04-17 14:43] VITALS: BP 123/64; PULSE 80; TEMP 36.4; O2SAT 98; Ht 162.6 cm; Wt 85.4 kg
[2017-04-17 15:00] LABS: FERRITIN 6.2 ng/ml (8.0-388.0)
[2017-04-17 15:38] VITALS: BP 124/66; PULSE 81; TEMP 36.7; O2SAT 98
[2017-04-17] MEDS: SODIUM CHLORIDE 0.9% 1000ML 1,000 ML IV SCH ×2 (15:50→22:23)
[2017-04-17] MEDS: HYDROCODONE/ACETAMOPHEN 5/325MG TAB PO PRN (15:50)
[2017-04-17] MEDS: GABAPENTIN 300 MG CAP PO SCH ×2 (16:07→20:44)
[2017-04-17] MEDS: INSULIN ASPART 100 UNITS/ML 3 ML PEN SC SCH ×2 (17:57→20:55)
[2017-04-17] MEDS: INSULIN HUMAN 70% NPH/30% REGULAR SC SCH (17:58)
[2017-04-17 19:37] VITALS: BP 136/69; PULSE 77; TEMP 36.7; O2SAT 95
[2017-04-17 20:12] LABS: HEMATOCRIT 22.1 % (37-47)
[2017-04-17] MEDS: MIRTAZAPINE TAB 15 MG TAB PO SCH (20:44)
[2017-04-17] MEDS: PANTOprazole INJ 40 MG in SYRINGE 0 ML IV SCH (20:44)
[2017-04-17] MEDS: TRAZODONE HCL 50 MG TAB PO SCH (20:44)
[2017-04-17] MEDS: ATORVASTATIN 40 MG TAB PO SCH (20:44)
[2017-04-17] MEDS: DONEPEZIL HCL 5 MG TAB PO SCH (20:45)
[2017-04-17] MEDS ORDERED: INSULIN HUMAN 70% NPH/30% REGULAR SC SCH (21:00)
[2017-04-17 23:45] VITALS: BP 124/58; PULSE 85; TEMP 36.5; O2SAT 93
[2017-04-18] VITALS (13 sets, daily range): BP systolic 107–150; BP diastolic 56–87; PULSE 72–85; TEMP 36.4–36.9; O2SAT 91–96
[2017-04-18 07:03] LABS: HEMATOCRIT 25.2 % (37-47); MEAN CELL VOLUME 94.4 fL (80-100); MEAN CORPUSCULAR HEMOGLOBIN 29.6 pg (25-34); MEAN CORPUSCULAR HGB CONC 31.3 g/dl (32-36); RED BLOOD COUNT 2.67 M/uL (4.2-5.4); WHITE BLOOD COUNT 2.67 K/uL (4.8-10.8)
[2017-04-18 07:33] LABS: MEAN PLATELET VOLUME 9.6 fL (7.4-10.4); PLATELET COUNT 69 K/uL (130-400)
[2017-04-18 07:34] LABS: BASO % 0.4 %; BASO ABS # 0.01 K/uL (0-0.2); COMPLETE YES; EOS % 4.1 %; LYMPH % 36.7 %; LYMPH ABS # 0.98 K/uL (1.2-3.4); MONO % 10.9 %; NEUT % 47.9 %; OVALOCYTES 1+
[2017-04-18 07:38] LABS: BUN/CREATININE RATIO 11.2 (10-20); CALCIUM 7.9 mg/dl (8.5-10.1); CREATININE 0.59 mg/dl (0.60-1.20); POTASSIUM 3.8 mmol/L (3.5-5.1)
[2017-04-18] MEDS: INSULIN ASPART 100 UNITS/ML 3 ML PEN SC SCH ×4 (08:08→20:28)
[2017-04-18] MEDS: LISINOPRIL 2.5 MG TAB PO SCH (08:22)
[2017-04-18] MEDS: MAGNESIUM OXIDE 400 MG TAB PO SCH (08:22)
[2017-04-18] MEDS: GABAPENTIN 300 MG CAP PO SCH ×3 (08:22→20:28)
[2017-04-18] MEDS: PANTOprazole INJ 40 MG in SYRINGE 0 ML IV SCH ×2 (08:23→20:27)
[2017-04-18] MEDS: SODIUM CHLORIDE 0.9% 1000ML 1,000 ML IV SCH (08:24)
[2017-04-18] MEDS: INSULIN HUMAN 70% NPH/30% REGULAR SC SCH ×2 (08:26→17:15)
--- NOTE | 2017-04-18 10:35 | GASTROINTESTINAL CONSULTATION ---
DATE OF CONSULTATION: 04/18/2017 REQUESTING PHYSICIAN: Dr. Alexis. CHIEF COMPLAINT: Dizziness. HISTORY OF PRESENT ILLNESS: The patient is a 66-year-old female who is a relatively poor historian who presented to the Emergency Room yesterday afternoon after sustaining a fall early on Wednesday. The patient notes that she was getting out of bed because she felt thirsty and then became very lightheaded upon standing. The patient does have a history of cirrhosis, thought to be related to a combination of hemochromatosis and fatty infiltration of the liver. She had a prior evaluation for a history of anemia which included an upper endoscopy and colonoscopy done last year. The upper endoscopy was performed in June of 2016, notable for grade 1 esophageal varices and portal hypertensive gastropathy. The patient also had several small duodenal ulcers. The patient's colonoscopy was performed in May of 2016 and notable for diverticulosis of colon, several small AVMs in the ascending colon, but no evidence of polyps or masses. The patient denies having bright red blood per rectum, fevers, chills, sweats or weight loss. The patient denies having difficulty with swallowing. She does note that she does have intermittent darkening of her stools and notes that today she has brown stool. PAST MEDICAL HISTORY: 1. COPD. 2. Diabetes. 3. Hypertension. 4. Cirrhosis. 5. [place] esophagus. OUTPATIENT MEDICATIONS: 1. Aspirin 81 mg daily. 2. Atorvastatin 40 mg daily. 3. Vitamin D3. 4. Plavix 75 mg q.a.m. 5. Donepezil 5 mg at bedtime. 6. Folic acid 1 mg daily. 7. Neurontin 300 mg at bedtime. 8. Glucosamine. 9. Lisinopril 2.5 mg daily. 10. Metformin 1000 mg twice daily. 11. Remeron 30 mg at bedtime. 12. Protonix 40 mg q.a.m. 13. Trazodone 50 mg at bedtime. P.R.N. medications: 1. Hydrocodone. 2. Requip. ALLERGIES: METHYL SALICYLATE, NICKEL, ZINC AND BENADRYL. SOCIAL HISTORY: The patient is a prior smoker, quitting about 15 years ago, patient did admit to 4 packs per day. Drug use, negative alcohol use, negative. FAMILY HISTORY: Congestive heart failure in father and mother; diabetes in mother. PAST SURGICAL HISTORY: No abdominal surgeries noted by patient. REVIEW OF SYSTEMS: CONSTITUTIONAL: The patient with weakness and fatigue. HEENT: Eyes: No worsening of vision. RESPIRATORY: No cough, no shortness of breath. CARDIOVASCULAR: Patient without chest pain or palpitations today. ABDOMEN: Please see history of present illness. MUSCULOSKELETAL: The patient with a history joint pain. GENITOURINARY: No dysuria. NEUROLOGIC: No history of memory loss or encephalopathy. PSYCHIATRIC: No depression today. ENDOCRINE: No polydipsia, no polyphagia. ENT: No difficulty swallowing noted. PHYSICAL EXAMINATION: VITAL SIGNS: Temperature is 36.9, pulse of 75, respiratory rate 18, blood pressure is 122/64, pulse ox is 94% on room air. HEENT: No scleral icterus noted. NECK: No JVD noted. LUNGS: Clear to auscultation. CARDIAC: Regular rhythm without a murmur today. ABDOMEN: Soft, nontender. No hepatosplenomegaly. EXTREMITIES: No edema noted today. DERMATOLOGY: No spider nevi noted. No petechiae noted. NEUROLOGIC: Cranial nerves grossly intact. Motor grossly intact. The patient without asterixis. LABS: White blood cell count is 2.67, hematocrit is 25.2, platelet count is 69. PT is 13.1, INR is 1.2. Sodium is 148, potassium is 3.8, chloride is 117, BUN is 7, creatinine is 0.59. Total bilirubin is 0.8, AST 62, ALT 32, alkaline phosphatase 121, albumin is 2.8, lipase is 294. IMAGING STUDIES: CT dated 04/17/2017: Cholelithiasis, pericholecystic fluid noted, cirrhotic-appearing liver without obvious masses. Please note this was a noncontrast study and limited value for evidence of liver masses. IMPRESSION: A 66-year-old female with a history of cirrhosis manifested by portal hypertension with complications of esophageal varices and portal gastropathy. She does present with a worsening anemia. I suspect that this may be related to her portal gastropathy and combined use of multiple antiplatelet agents. I would suggest that the patient have an upper endoscopy for further evaluation. If she is found to have significant portal hypertensive gastropathy, we may need to consider ablative therapy or perhaps alteration of her antiplatelet regimen to decrease the microscopic blood losses. RECOMMENDATIONS: 1. N.p.o. at midnight. 2. Upper endoscopy to be scheduled for tomorrow with Dr. Fernandez. 3. The patient will need follow up imaging of her liver to evaluate for evidence of liver masses. This does not necessarily need to be done in the hospital setting. Please call with any questions or concerns.
--- NOTE | 2017-04-18 11:27 | Hematology/Oncology Prog Note ---
Hematology/Onc Progress Note Date of Service Apr 18, 2017. Diagnoses Cirrhosis Pancytopenia Acute anemia, likely 2/2 blood loss Medications Medications Administered Medications (Trade) Dose Ordered Sig/Kole Route Start Time Stop Time Status Last Admin Dose Admin Sodium Chloride 500 ml @ 999 mls/hr Q31M STAT IV 04/17/17 11:28 04/17/17 11:58 DC 04/17/17 11:56 999 MLS/HR Pantoprazole Sodium 40 mg/ Syringe 10 ml @ 5 mls/min NOW ONCE IV 04/17/17 11:30 04/17/17 11:31 DC 04/17/17 11:57 5 MLS/MIN Atorvastatin Calcium (Lipitor Tab) 40 mg HS PO 04/17/17 21:00 05/17/17 20:59 04/17/17 20:44 40 MG Folic Acid (Folvite Tab) 1 mg QAM PO 04/18/17 09:00 05/18/17 08:59 04/18/17 08:23 1 MG Gabapentin (Neurontin Cap) 300 mg TID PO 04/17/17 16:00 05/17/17 15:59 04/18/17 08:22 300 MG Acetaminophen/ Hydrocodone Bitart ([place] 5/325 Tab) 1 tab Q6H PRN PO 04/17/17 12:45 05/01/17 12:44 04/17/17 15:50 1 TAB Lisinopril (Zestril Tab) 2.5 mg DAILY PO 04/18/17 09:00 05/18/17 08:59 04/18/17 08:22 2.5 MG Magnesium Oxide (Mag-Ox Tab) 400 mg QAM PO 04/18/17 09:00 05/18/17 08:59 04/18/17 08:22 400 MG Mirtazapine (Remeron Tab) 30 mg HS PO 04/17/17 21:00 05/17/17 20:59 04/17/17 20:44 30 MG Trazodone HCl (Desyrel Tab) 50 mg HS PO 04/17/17 21:00 05/17/17 20:59 04/17/17 20:44 50 MG Donepezil HCl (Aricept Tab) 5 mg HS PO 04/17/17 21:00 05/17/17 20:59 04/17/17 20:45 5 MG Sodium Chloride 1,000 ml @ 100 mls/hr Q10H IV 04/17/17 12:41 05/17/17 12:40 04/18/17 08:24 100 MLS/HR Insulin Aspart (novoLOG ASPART) SLIDING SCALE If C... ACHS SC 04/17/17 16:30 05/17/17 16:29 04/17/17 20:55 2 UNITS Pantoprazole Sodium 40 mg/ Syringe 10 ml @ 5 mls/min DAILY@21 IV 04/17/17 21:00 05/17/17 20:59 04/18/17 08:23 5 MLS/MIN Insulin Human Isoph/Insulin Regular (novoLIN 70/30 REGULAR) 35 units BIDM SC 04/17/17 17:00 05/17/17 16:59 04/18/17 08:26 35 UNITS Subjective Ms. Rangel had no acute bleeding events overnight and responded appropriately to her blood transfusion. She was seen by Dr. Trivedi and is scheduled for an EGD tomorrow. Review of Systems: Constitutional: No fever ENT: No unusual epistaxis Respiratory: No shortness of breath Abdomen: No pain, No GI bleeding Female : No hematuria Vital Signs Vital Signs Past 12 Hours Date Time Temp Pulse Resp B/P (MAP) Pulse Ox O2 Delivery O2 Flow Rate FiO2 04/18/17 09:28 81 138/66 (90) 04/18/17 09:28 85 150/66 (94) 04/18/17 09:27 36.4 75 20 126/87 (100) 94 04/18/17 08:09 36.9 75 18 122/64 (83) 94 Room Air 04/18/17 08:00 96 Room Air 0.0 04/18/17 04:20 36.5 77 18 131/67 (88) 96 Room Air 04/18/17 04:00 Room Air 04/18/17 02:50 36.6 73 18 107/56 91 04/18/17 01:50 36.5 75 18 116/69 94 04/18/17 01:50 36.5 75 18 116/69 (85) 94 Room Air 04/18/17 00:50 36.6 75 18 127/63 94 04/18/17 00:20 36.5 74 16 128/63 94 04/18/17 00:00 Room Air 04/18/17 00:00 36.5 77 20 131/67 (88) 96 Room Air 04/17/17 23:45 36.5 85 18 124/58 93 0.0 Physical Exam Constitutional: Level of Distress: NAD, chronically ill Eyes: Pupils: pertinent finding (anicteric sclerae) Lungs: Auscuitation: CTA except as noted Cardiovascular: Heart Auscultation: RRR Abdomen: Inspection & Palpation: soft, no tenderness, guarding & rebound Laboratory Last 24 Hours Test 04/17/17 13:16 04/17/17 14:09 04/17/17 17:11 04/17/17 19:24 Transferrin % Saturation % Vitamin B12 Level 1204 pg/mL Folate > 24.00 ng/mL Bedside Glucose 193 mg/dl Hemoglobin 6.8 g/dL Hematocrit 22.1 % Test 04/17/17 20:51 04/18/17 06:29 04/18/17 07:26 Bedside Glucose 181 mg/dl 102 mg/dl White Blood Count 2.67 K/uL Red Blood Count 2.67 M/uL Hemoglobin 7.9 g/dL Hematocrit 25.2 % Mean Corpuscular Volume 94.4 fL Mean Corpuscular Hemoglobin 29.6 pg Mean Corpuscular Hemoglobin Concent 31.3 g/dl Platelet Count 69 K/uL Mean Platelet Volume 9.6 fL Neutrophils (%) (Auto) 47.9 % Lymphocytes (%) (Auto) 36.7 % Monocytes (%) (Auto) 10.9 % Eosinophils (%) (Auto) 4.1 % Basophils (%) (Auto) 0.4 % Neutrophils # (Auto) 1.28 K/uL Lymphocytes # (Auto) 0.98 K/uL Monocytes # (Auto) 0.29 K/uL Eosinophils # (Auto) 0.11 K/uL Basophils # (Auto) 0.01 K/uL RDW Standard Deviation 60.8 fL RDW Coefficient of Variation 17.6 % Immature Granulocyte % (Auto) 0.0 % Immature Granulocyte # (Auto) 0.00 K/uL Ovalocytes 1+ Sodium Level 148 mmol/L Potassium Level 3.8 mmol/L Chloride Level 117 mmol/L Carbon Dioxide Level 26 mmol/L Anion Gap 5.0 mmol/L Blood Urea Nitrogen 7 mg/dl Creatinine 0.59 mg/dl Est Creatinine Clear Calc Drug Dose 94.8 ml/min Estimated GFR () 109.9 Estimated GFR (Non- 94.8 BUN/Creatinine Ratio 11.2 Random Glucose 95 mg/dl Calcium Level 7.9 mg/dl Assessment & Plan She responded appropriately to her blood transfusion. Her workup revealed a low ferritin, which is highly specific for iron deficiency. While this can be somewhat misleading in the setting of cirrhosis, as ferritin is synthesized in the liver, she does not have markedly abnormal protein synthetic function (her coags are normal and her albumin is only mildly low), so I am inclined to believe this. She has a reported history of hemochromatosis, but I do not have documentation of this and, at any rate, she is iron deficient and would likely benefit from some supplementation. This would also fit with the picture of a chronic UGI bleed. I would start her on oral iron supplementation for now, though she might require IV iron as an outpatient if her levels do not improve. The blood transfusion will also function as an iron infusion. I would keep her hemoglobin around 8 for now. We will arrange to see her as an outpatient to follow up on her iron studies and the potential need for IV iron.
--- NOTE | 2017-04-18 13:30 | Progress Note ---
Subjective Date of Service: Apr 18, 2017. (Joan Jim ., PA-C) Subjective Pt evaluation today including: conversation w/ patient, physical exam, chart review, lab review, review of studies, review of inpatient medication list Patient is feeling slightly better, but is hoping to find out "what is wrong" with her. She continues to have some slight dizziness/lightheadedness especially while standing. She is complaining of mild headache today as well. She has not moved her bowels yet today, but she is urinating fine and complains of no dysuria. She denies chest pain, SOB, or cough. She is having some discomfort in the RLQ. GI recommendations reviewed- planning on endoscopy tomorrow. Patient had colonoscopy/endoscopy last year. Colonoscopy showed diverticulosis of the colon , several small AVM's in ascending colon, but no polyps/masses. Endoscopy showed esophageal varices, portal hypertensive gastropathy, and small duodenal ulcers. Hematology/Oncology recommendations also reviewed- 1 unit of blood transfused. Feel iron deficiency is probable despite patient's stated history of hemochromatosis. Possibly from UGI bleed. Recommend PO Iron supplementation now and consideration of IV Iron infusion pending response Labs reviewed: Hgb initially 7.9, then dipped to 6.8- 1 unit PRBC given last night- increased this morning back to 7.9 WBC 2.67 RBC 2.67 MCHC 31.3 Plt count 69 (down from 80 on admission) TSH 3.160 TIBC 402, Ferritin 6.2 (L) AST 92, Direct Bili 0.3, ALT 32, ALk Phos 121, CK 154 Albumin 2.8 B12 1204 Folate >24 Creatinine 0.59, BUN 7 Na+ 148, K+ 3.8, Cl- 117 CT of the abdomen/pelvis showed some dependent atelectasis in the limited lung view. Splenic enlargement with perisplenic and perigastric varices, multiple renal cysts, cirrhotic liver morphology, and cholelithiasis. CT of head and CXR showed no acute findings. CT of C-Spine showed lytic lesion that has been stable favoring benign process along with degenerative changes in C5/C6 and C6/ C7. (Joan Jim ., PA-C) Problem List Medical Problems: (1) Abdominal pain Status: Acute (2) Anemia Status: Acute (3) Back pain Status: Acute (4) Cat bite of left hand with infection Status: Acute (5) Cellulitis of left hand Status: Acute (6) Colitis Status: Acute (7) Epistaxis Status: Acute (8) Fever Status: Acute (9) GI bleeding Status: Acute (10) Head injury Status: Acute (11) Head injury Status: Acute (12) Headache Status: Acute (13) Syncope Status: Acute (14) Weakness Status: Acute (Joan Jim ., PA-C) Review of Systems Constitutional: + weakness, No fever, No chills, No sweats Eyes: + problem reported (left eye legal blindness, s/p injection in right eye for macular degeneration last week, right eye itching) ENT: No hearing loss Respiratory: No cough, No sputum, No wheezing, No shortness of breath Cardiac: + edema (b/l LE- chronic), No chest pain Abdomen: + pain (right lower abdominal pain, cramping, squeezing), + GI bleeding (on and off dark stools [employer]), No vomiting, No diarrhea Musculoskeletal: No joint pain, No muscle pain Female : No dysuria Neurologic: + problem reported (headache today- all over, pressure, also behind /under left eye) Skin: No rash, No color change All Other Systems: Reviewed and Negative (Joan Jim ., PA-C) Medications Current Inpatient Medications Medications (Trade) Dose Ordered Sig/Kole Route Start Time Stop Time Status Last Admin Dose Admin Atorvastatin Calcium (Lipitor Tab) 40 mg HS PO 04/17/17 21:00 05/17/17 20:59 04/17/17 20:44 40 MG Folic Acid (Folvite Tab) 1 mg QAM PO 04/18/17 09:00 05/18/17 08:59 04/18/17 08:23 1 MG Gabapentin (Neurontin Cap) 300 mg TID PO 04/17/17 16:00 05/17/17 15:59 04/18/17 08:22 300 MG Acetaminophen/ Hydrocodone Bitart ([place] 5/325 Tab) 1 tab Q6H PRN PO 04/17/17 12:45 05/01/17 12:44 04/17/17 15:50 1 TAB Lisinopril (Zestril Tab) 2.5 mg DAILY PO 04/18/17 09:00 05/18/17 08:59 04/18/17 08:22 2.5 MG Magnesium Oxide (Mag-Ox Tab) 400 mg QAM PO 04/18/17 09:00 05/18/17 08:59 04/18/17 08:22 400 MG Mirtazapine (Remeron Tab) 30 mg HS PO 04/17/17 21:00 05/17/17 20:59 04/17/17 20:44 30 MG Ropinirole HCl (Requip Tab) 1 mg HS PRN PO 04/17/17 12:45 05/17/17 12:44 Trazodone HCl (Desyrel Tab) 50 mg HS PO 04/17/17 21:00 05/17/17 20:59 04/17/17 20:44 50 MG Donepezil HCl (Aricept Tab) 5 mg HS PO 04/17/17 21:00 05/17/17 20:59 04/17/17 20:45 5 MG Sodium Chloride 1,000 ml @ 100 mls/hr Q10H IV 04/17/17 12:41 05/17/17 12:40 04/18/17 08:24 100 MLS/HR Acetaminophen (Tylenol Tab) 650 mg Q4H PRN PO 04/17/17 12:45 05/17/17 12:44 Ondansetron HCl (Zofran Inj) 4 mg Q6H PRN IV 04/17/17 12:45 05/17/17 12:44 Insulin Aspart (novoLOG ASPART) SLIDING SCALE If C... ACHS SC 04/17/17 16:30 05/17/17 16:29 04/17/17 20:55 2 UNITS Glucose (Glucose 40% Gel) 15-30 GRAMS 15 GRAMS... UD PRN PO 04/17/17 12:45 05/17/17 12:44 Glucose (Glucose Chew Tab) 4-8 Tablets 4 Tabl... UD PRN PO 04/17/17 12:45 05/17/17 12:44 Dextrose (Dextrose 50% 50ML Syringe) 25-50ML OF 50% DW IV FOR... UD PRN IV 04/17/17 12:45 05/17/17 12:44 Glucagon (Glucagon Inj) 1 mg UD PRN SQ 04/17/17 12:45 05/17/17 12:44 Pantoprazole Sodium 40 mg/ Syringe 10 ml @ 5 mls/min DAILY@09,21 IV 04/17/17 21:00 05/17/17 20:59 04/18/17 08:23 5 MLS/MIN Insulin Human Isoph/Insulin Regular (novoLIN 70/30 REGULAR) 35 units BIDM SC 04/17/17 17:00 05/17/17 16:59 04/18/17 08:26 35 UNITS (Joan Jim ., BRITTNEY-C) Objective Vital Signs Date Time Temp Pulse Resp B/P (MAP) Pulse Ox O2 Delivery O2 Flow Rate FiO2 04/18/17 09:28 81 138/66 (90) 04/18/17 09:28 85 150/66 (94) 04/18/17 09:27 36.4 75 20 126/87 (100) 94 04/18/17 08:09 36.9 75 18 122/64 (83) 94 Room Air 04/18/17 08:00 96 Room Air 0.0 04/18/17 04:20 36.5 77 18 131/67 (88) 96 Room Air 04/18/17 04:00 Room Air 04/18/17 02:50 36.6 73 18 107/56 91 04/18/17 01:50 36.5 75 18 116/69 94 04/18/17 01:50 36.5 75 18 116/69 (85) 94 Room Air 04/18/17 00:50 36.6 75 18 127/63 94 04/18/17 00:20 36.5 74 16 128/63 94 04/18/17 00:00 Room Air 04/18/17 00:00 36.5 77 20 131/67 (88) 96 Room Air 04/17/17 23:45 36.5 85 18 124/58 93 0.0 04/17/17 20:00 Room Air 04/17/17 19:37 36.7 77 18 136/69 (91) 95 Room Air 04/17/17 16:00 Room Air 04/17/17 15:38 36.7 81 18 124/66 (85) 98 Room Air 04/17/17 14:43 36.4 80 20 123/64 98 Room Air 04/17/17 13:29 77 18 131/77 98 (Joan Jim ., PA-C) Physical Exam General Appearance: WD/WN, no apparent distress Eyes: + pertinent finding (right eye with notable subconjunctival hemorrhage, no pain) ENT: hearing grossly normal Neck: supple, trachea midline Respiratory/Chest: chest non-tender, lungs clear, no respiratory distress, no accessory muscle use, + decreased breath sounds (mildly decreased breath sounds , no adventitious sounds noted) Cardiovascular: regular rate, rhythm Abdomen: normal bowel sounds, soft, + tenderness (mild tenderness of RLQ) Extremities: non-tender, + swelling (trace pitting edema RLE, 1+ pitting edema LLE) Neurologic/Psychiatric: alert, normal mood/affect Skin: normal color, warm/dry, no rash (Joan Jim ., PA-C) Laboratory Results Head CT: IMPRESSION: No acute intracranial findings CXR: IMPRESSION: No active disease in the chest. Cervical Spine CT: IMPRESSION: 1. No acute fractures or subluxations identified 2. Degenerative changes most pronounced C5-6 and C6-7 levels 3. Stable (since October 2013) 12 mm C7 lytic focus. The three-year stability strongly favors a benign process. CT of the Abdomen/Pelvis w/o Contrast: IMPRESSION: 1. Study limited due to the lack of intravenous or oral administered contrast 2. No evidence of bowel obstruction. No evidence of free air 3. No evidence of acute appendicitis. No evidence of acute diverticulitis 4. Cholelithiasis 5. Nonobstructing right renal calculi 6. Cirrhotic liver morphology with evidence of portal hypertension, splenorenal varices, splenomegaly, and omental collaterals. 7. Multiple cysts and hyperdense renal cysts. Images viewed. Last 24 Hours Test 04/17/17 13:16 04/17/17 14:09 04/17/17 17:11 04/17/17 19:24 Transferrin % Saturation % Vitamin B12 Level 1204 pg/mL Folate > 24.00 ng/mL Bedside Glucose 193 mg/dl Hemoglobin 6.8 g/dL Hematocrit 22.1 % Test 04/17/17 20:51 04/18/17 06:29 04/18/17 07:26 Bedside Glucose 181 mg/dl 102 mg/dl White Blood Count 2.67 K/uL Red Blood Count 2.67 M/uL Hemoglobin 7.9 g/dL Hematocrit 25.2 % Mean Corpuscular Volume 94.4 fL Mean Corpuscular Hemoglobin 29.6 pg Mean Corpuscular Hemoglobin Concent 31.3 g/dl Platelet Count 69 K/uL Mean Platelet Volume 9.6 fL Neutrophils (%) (Auto) 47.9 % Lymphocytes (%) (Auto) 36.7 % Monocytes (%) (Auto) 10.9 % Eosinophils (%) (Auto) 4.1 % Basophils (%) (Auto) 0.4 % Neutrophils # (Auto) 1.28 K/uL Lymphocytes # (Auto) 0.98 K/uL Monocytes # (Auto) 0.29 K/uL Eosinophils # (Auto) 0.11 K/uL Basophils # (Auto) 0.01 K/uL RDW Standard Deviation 60.8 fL RDW Coefficient of Variation 17.6 % Immature Granulocyte % (Auto) 0.0 % Immature Granulocyte # (Auto) 0.00 K/uL Ovalocytes 1+ Sodium Level 148 mmol/L Potassium Level 3.8 mmol/L Chloride Level 117 mmol/L Carbon Dioxide Level 26 mmol/L Anion Gap 5.0 mmol/L Blood Urea Nitrogen 7 mg/dl Creatinine 0.59 mg/dl Est Creatinine Clear Calc Drug Dose 94.8 ml/min Estimated GFR () 109.9 Estimated GFR (Non- 94.8 BUN/Creatinine Ratio 11.2 Random Glucose 95 mg/dl Calcium Level 7.9 mg/dl (Joan Jim ., PA-C) Assessment and Plan 1. Acute on Chronic anemia in setting of Pancytopenia with questionable history of Hemochromatosis -Hematology following- Probable anemia from iron deficiency seconday to possible UGI Bleed. Recommend PO Iron supplementation with consideration of IV Iron. Recommend keeping Hgb around 8 for now and will follow up as outpatient to follow iron studies. -Transfused 1 unit PRBC's yesterday- continue monitoring H&H daily -Start PO Iron supplementation- PO Ferrous Sulfate 325 mg QAM daily -Appreciate Hematology recommendations -Will continue to check H&H daily 2. HTN -Continue Lisinopril 3. DM II -Continue Novolin & Insulin sliding scale -A1C 7.3 4. Dyslipidemia -Continue Lipitor 5. Possible upper GI bleed 6. Cirrhosis, Esophageal varices, portal HTN, portal gastropathy -GI following. Plan for Endoscopy tomorrow -NPO after midnight -Appreciate GI recommendations 7. Luevano's esophagus 8. Diabetic retinopathy, macular degeneration, blindness in left eye, subconjunctival hematoma right eye, Eye itching -Will add eye rinse PRN irritation/itching of the right eye 9. CAD -Chronically on ASA, Plavix- currently held 10. Hx of Suicide attempt in 2003, Depression -Remeron as outpatient 11. Folic Acid Deficiency, Vitamin D Deficiency- chronic -Continue supplementation (Joan Jim ., NAMAN) Reviewed: Pt Seen/Exam by Me (Shanice Yusuf MD) History Physician Under Trimmer Supervision Note: I interviewed and examined the patient. Discussed with BRITTNEY Jim and agree with findings and plan as documented in the note. Any exceptions or clarifications are listed here: Pt feeling very drained. I spent 45 min combing through her outpatient and inpatient records, looking for why she is on DAPT. SHe has known h/o PUD, portal gastropathy, varices, and anemia. 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 SHe underwent 3 phlebotomies at that time and had chest pain and phlebotomies were stopped. She was never significantly Fe-avid as per GI records. She has never had a CVA, and had at the most moderate nonobstructive CAD on cardiac cath in 2011. SHe has no stents. Vitals reviewed, tele reviewed and with NSR and PVCs NAD, alert and awake RRR, 2/6 CHIOMA at [facility] CTAB no wcr Abd +BS, soft, +TTP in RUQ w/o guarding Ext 1+ pitting edema bilat Pt is a 66 yo female with a h/o cirrhosis from AIH/VELEZ/HH, portal HTN, h/o PUD , nonobstructive CAD, Bassam's, DMII, and other issues as above. Here with fall and severe anemia with melena, Heme+ stool in ER, in the setting of being on chronic DAPT. -transfused and hgb improved, no further melena here -EGD tomorrow -RECOMMEND STOPPING PLAVIX permanently, could consider continuing on ASA 81mg daily after acute GI issues resolved. No indication to remain on DAPT -continue routine f/u with GI Documented By: Shanice Yusuf (Shanice Yusuf MD)
[2017-04-18] MEDS: HYDROCODONE/ACETAMOPHEN 5/325MG TAB PO PRN (15:31)
[2017-04-18] MEDS ORDERED: [UNRECOGNIZED DRUG - OTHER] OP PRN (16:30)
[2017-04-18] MEDS: MIRTAZAPINE TAB 15 MG TAB PO SCH (20:28)
[2017-04-18] MEDS: TRAZODONE HCL 50 MG TAB PO SCH (20:28)
[2017-04-18] MEDS: DONEPEZIL HCL 5 MG TAB PO SCH (20:28)
[2017-04-18] MEDS: ATORVASTATIN 40 MG TAB PO SCH (20:28)
[2017-04-18] MEDS: D5W AND 1/2NSS 1,000 ML IV SCH (23:37)
[2017-04-19] VITALS (11 sets, daily range): BP systolic 87–125; BP diastolic 33–63; PULSE 65–81; TEMP 36.6–37; O2SAT 94–98
[2017-04-19 06:20] LABS: HEMATOCRIT 24.7 % (37-47); MEAN CELL VOLUME 94.6 fL (80-100); MEAN CORPUSCULAR HEMOGLOBIN 29.5 pg (25-34); MEAN CORPUSCULAR HGB CONC 31.2 g/dl (32-36); RED BLOOD COUNT 2.61 M/uL (4.2-5.4); WHITE BLOOD COUNT 2.73 K/uL (4.8-10.8)
[2017-04-19 06:24] LABS: MEAN PLATELET VOLUME 9.9 fL (7.4-10.4); PLATELET COUNT 68 K/uL (130-400)
[2017-04-19] MEDS: INSULIN ASPART 100 UNITS/ML 3 ML PEN SC SCH ×4 (06:30→21:11)
[2017-04-19 06:49] LABS: ANISOCYTOSIS PRESENT; BASO % 0.4 %; BASO ABS # 0.01 K/uL (0-0.2); COMPLETE YES; EOS % 3.7 %; IG% 0.4 %; LYMPH % 36.3 %; LYMPH ABS # 0.99 K/uL (1.2-3.4); MONO % 10.6 %; NEUT % 48.6 %
[2017-04-19 06:55] LABS: BUN/CREATININE RATIO 9.7 (10-20); CALCIUM 7.8 mg/dl (8.5-10.1); CREATININE 0.65 mg/dl (0.60-1.20); POTASSIUM 3.7 mmol/L (3.5-5.1)
[2017-04-19] MEDS: MAGNESIUM OXIDE 400 MG TAB PO SCH (08:06)
[2017-04-19] MEDS: FERROUS SULFATE 325 MG TAB PO SCH (08:07)
[2017-04-19] MEDS: LISINOPRIL 2.5 MG TAB PO SCH (08:07)
[2017-04-19] MEDS: GABAPENTIN 300 MG CAP PO SCH ×3 (08:07→21:12)
[2017-04-19] MEDS: PANTOprazole INJ 40 MG in SYRINGE 0 ML IV SCH ×2 (08:08→21:09)
[2017-04-19] MEDS: HYDROCODONE/ACETAMOPHEN 5/325MG TAB PO PRN ×2 (08:15→21:14)
[2017-04-19] MEDS: INSULIN HUMAN 70% NPH/30% REGULAR SC SCH ×2 (08:17→18:08)
[2017-04-19] MEDS ORDERED: PROPOFOL IV EMULSION 10 MG/ML 20 ML VIAL IV ONE (10:43)
[2017-04-19] MEDS ORDERED: LIDOCAINE HCL 2% 2 ML VIAL (20MG/ML) ONE (10:43)
--- NOTE | 2017-04-19 10:48 | History & Physical Bridge Note ---
H&P Re-Evaluation Bridge Note: I have examined the patient, reviewed the History & Physical and in the interval since the performance of the History & Physical I have noted the following changes of clinical significance: No changes noted
[2017-04-19] MEDS ORDERED: ONDANSETRON INJ 2 MG/ML 2 ML VIAL ONE (10:52)
[2017-04-19] MEDS ORDERED: SODIUM CHLORIDE 0.9% 1000ML 1,000 ML IV SCH (11:30)
[2017-04-19] MEDS ORDERED: ALBUT/IPRATROP 3MG/0.5MG NEB 3 ML VIAL INH ONE (11:45)
--- NOTE | 2017-04-19 12:17 | Progress Note ---
Progress Note Date of Service Apr 19, 2017. Progress Note The patient was here for an EGD. While waiting for her procedure she complained of dizziness and began vomiting bilious vomitus. The case was cancelled for today.
[2017-04-19] MEDS: D5W AND 1/2NSS 1,000 ML IV SCH (12:25)
[2017-04-19] MEDS: AMPICILLIN/SULBACTAM SOD INJ 1,500 MG in SODIUM CHLORIDE 0.9% 100ML 100 ML IV SCH ×3 (12:25→23:56)
[2017-04-19] MEDS: LACTOBACILLUS ACIDOPHILUS (FLORANEX) TAB PO SCH ×2 (12:27→18:03)
[2017-04-19] MEDS: ALBUT/IPRATROP 3MG/0.5MG NEB 3 ML VIAL INH SCH ×2 (15:29→20:17)
--- NOTE | 2017-04-19 15:43 | Progress Note ---
Subjective Date of Service: Apr 19, 2017. Subjective Pt evaluation today including: conversation w/ patient, physical exam, chart review, lab review, review of inpatient medication list was down for EGD then started vomiting - case cancelled. came to floor again feeling nauseated, weak. d/w nursing. needed O2. by the time i see her (shortly after return to floor) she's feeling better - still nauseated some, some epigastric pain, but better. eating crackers. no sob, although is wearing O2. notes some stomach pain. trying to maintain her sense of humor joking about a time that she scared her sister by pretending to open the door when a bear that lives nearby was in their yard. Problem List Medical Problems: (1) Abdominal pain Status: Acute (2) Anemia Status: Acute (3) Back pain Status: Acute (4) Cat bite of left hand with infection Status: Acute (5) Cellulitis of left hand Status: Acute (6) Colitis Status: Acute (7) Epistaxis Status: Acute (8) Fever Status: Acute (9) GI bleeding Status: Acute (10) Head injury Status: Acute (11) Head injury Status: Acute (12) Headache Status: Acute (13) Syncope Status: Acute (14) Weakness Status: Acute Review of Systems all other ROS otherwise negative except for as above Objective Vital Signs Date Time Temp Pulse Resp B/P (MAP) Pulse Ox O2 Delivery O2 Flow Rate FiO2 04/19/17 15:11 36.9 74 18 87/33 (51) 96 95/48 (64) 04/19/17 12:30 110/57 (74) 04/19/17 12:01 94 Room Air 04/19/17 11:44 81 14 96 Nasal Cannula 2.0 04/19/17 11:34 37.0 65 18 90/47 (61) 95 2.0 04/19/17 10:36 37.0 68 20 98/45 (62) 93 Room Air 04/19/17 08:00 94 Room Air 04/19/17 07:26 36.8 74 18 125/63 (83) 94 Room Air 04/19/17 04:00 36.6 73 18 98/57 (71) 95 Room Air 04/19/17 04:00 Room Air 04/19/17 00:01 Room Air 04/19/17 00:01 36.8 76 18 108/54 (72) 94 Room Air 04/18/17 20:01 Room Air 04/18/17 19:44 36.7 75 18 122/70 (87) 93 Room Air 04/18/17 18:37 36.7 72 18 128/68 94 Room Air 04/18/17 16:00 Room Air Physical Exam General Appearance: no apparent distress (fatigued) Eyes: EOMI, + pertinent finding (R eye injected, superficial hemorrhage) ENT: hearing grossly normal Neck: trachea midline Respiratory/Chest: no respiratory distress, no accessory muscle use, + pertinent finding (decreased BS base R, sl coarse mid R, sl coarse base L) Abdomen: soft (with epigastric ttp no guarding) Extremities: normal range of motion Neurologic/Psychiatric: liquor blender II-XII nml as tested, alert, normal mood/affect Skin: normal color, warm/dry Laboratory Results Last 24 Hours Test 04/18/17 16:32 04/18/17 20:20 04/19/17 05:52 04/19/17 07:40 Bedside Glucose 95 mg/dl 158 mg/dl 117 mg/dl White Blood Count 2.73 K/uL Red Blood Count 2.61 M/uL Hemoglobin 7.7 g/dL Hematocrit 24.7 % Mean Corpuscular Volume 94.6 fL Mean Corpuscular Hemoglobin 29.5 pg Mean Corpuscular Hemoglobin Concent 31.2 g/dl Platelet Count 68 K/uL Mean Platelet Volume 9.9 fL Neutrophils (%) (Auto) 48.6 % Lymphocytes (%) (Auto) 36.3 % Monocytes (%) (Auto) 10.6 % Eosinophils (%) (Auto) 3.7 % Basophils (%) (Auto) 0.4 % Neutrophils # (Auto) 1.33 K/uL Lymphocytes # (Auto) 0.99 K/uL Monocytes # (Auto) 0.29 K/uL Eosinophils # (Auto) 0.10 K/uL Basophils # (Auto) 0.01 K/uL RDW Standard Deviation 60.4 fL RDW Coefficient of Variation 17.3 % Immature Granulocyte % (Auto) 0.4 % Immature Granulocyte # (Auto) 0.01 K/uL Anisocytosis PRESENT Sodium Level 148 mmol/L Potassium Level 3.7 mmol/L Chloride Level 115 mmol/L Carbon Dioxide Level 27 mmol/L Anion Gap 6.0 mmol/L Blood Urea Nitrogen 6 mg/dl Creatinine 0.65 mg/dl Est Creatinine Clear Calc Drug Dose 86.0 ml/min Estimated GFR () 106.5 Estimated GFR (Non- 91.9 BUN/Creatinine Ratio 9.7 Random Glucose 108 mg/dl Calcium Level 7.8 mg/dl Test 04/19/17 11:15 Bedside Glucose 101 mg/dl Assessment and Plan syncope/dizziness -almost certainly related to anemia Acute on Chronic anemia in setting of Pancytopenia with questionable history of Hemochromatosis -now appears iron deficient - if she truly did have hemochromatosis then obviously this would be significant for a lot of ongoing blood loss. review of old records suggests that at least as of 2008 highest ferritin was around 230, highest % saturation was around 35%, however -but does appear iron deficiency - for EGD once able to tolerate -continue to follow hemoglobin, may need further transfusions hypotension -hold anti-hypertensives, fluids, follow Hgb, may need transfusions again - this likely is why she's had the frequent falls/syncope, dizziness nausea/vomiting -likely will relate to UGI pathology. stable now. continue PPI and prn zofran hypoxia -concern on aspiration during vomiting - lung exam corroborates concern -unasyn and supportive care for now, follow HTN -hold Lisinopril DM II -Continue Novolin & Insulin sliding scale, sugars reasonable for now -A1C 7.3 hypocalcemia -check vitamin D Dyslipidemia -Continue Lipitor Cirrhosis, Esophageal varices, portal HTN, portal gastropathy -adds ddx on UGI bleeding sources. anticipate EGD once able as above Diabetic retinopathy, macular degeneration, blindness in left eye, subconjunctival hematoma right eye, Eye itching -continue eye rinse PRN irritation/itching of the right eye CAD -Chronically on ASA, Plavix- currently held due to anemia and concern on UGI source Depression -Remeron as outpatient Folic Acid Deficiency, Vitamin D Deficiency- chronic -Continue supplementation, check D as above DVT proph -pharmacologic contraindicated due to possible UGI bleeding
[2017-04-19] MEDS ORDERED: SODIUM CHLORIDE 0.9% 500ML 500 ML IV SCH (15:45)
[2017-04-19] MEDS: MIRTAZAPINE TAB 15 MG TAB PO SCH (21:11)
[2017-04-19] MEDS: TRAZODONE HCL 50 MG TAB PO SCH (21:11)
[2017-04-19] MEDS: ATORVASTATIN 40 MG TAB PO SCH (21:11)
[2017-04-19] MEDS: DONEPEZIL HCL 5 MG TAB PO SCH (21:12)
[2017-04-20] VITALS (13 sets, daily range): BP systolic 92–125; BP diastolic 47–61; PULSE 72–93; TEMP 36.5–37.6; O2SAT 90–98
[2017-04-20] MEDS: D5W AND 1/2NSS 1,000 ML IV SCH ×2 (02:53→15:51)
[2017-04-20 05:35] LABS: MEAN CORPUSCULAR HEMOGLOBIN 30.2 pg (25-34); MEAN CORPUSCULAR HGB CONC 31.7 g/dl (32-36); RED BLOOD COUNT 2.42 M/uL (4.2-5.4); WHITE BLOOD COUNT 2.72 K/uL (4.8-10.8)
[2017-04-20 05:38] LABS: MEAN PLATELET VOLUME 9.9 fL (7.4-10.4); PLATELET COUNT 60 K/uL (130-400)
[2017-04-20] MEDS: AMPICILLIN/SULBACTAM SOD INJ 1,500 MG in SODIUM CHLORIDE 0.9% 100ML 100 ML IV SCH (05:45)
[2017-04-20 05:59] LABS: BUN/CREATININE RATIO 7.7 (10-20); CREATININE 0.74 mg/dl (0.60-1.20); POTASSIUM 3.7 mmol/L (3.5-5.1)
[2017-04-20 06:07] LABS: BASO % 0.4 %; BASO ABS # 0.01 K/uL (0-0.2); COMPLETE YES; EOS % 3.7 %; LYMPH % 29.8 %; LYMPH ABS # 0.81 K/uL (1.2-3.4); MONO % 12.1 %; OVALOCYTES 1+
[2017-04-20] MEDS: INSULIN ASPART 100 UNITS/ML 3 ML PEN SC SCH ×4 (06:30→20:35)
[2017-04-20] MEDS: ALBUT/IPRATROP 3MG/0.5MG NEB 3 ML VIAL INH SCH ×4 (06:53→19:30)
[2017-04-20] MEDS: MAGNESIUM OXIDE 400 MG TAB PO SCH (07:56)
[2017-04-20] MEDS: LACTOBACILLUS ACIDOPHILUS (FLORANEX) TAB PO SCH ×3 (07:56→17:11)
[2017-04-20] MEDS: GABAPENTIN 300 MG CAP PO SCH ×2 (07:56→13:03)
[2017-04-20] MEDS: PANTOprazole INJ 40 MG in SYRINGE 0 ML IV SCH ×2 (07:56→20:34)
[2017-04-20] MEDS: FERROUS SULFATE 325 MG TAB PO SCH (07:56)
[2017-04-20] MEDS: INSULIN HUMAN 70% NPH/30% REGULAR SC SCH ×2 (07:58→17:14)
--- NOTE | 2017-04-20 09:57 | Hematology/Oncology Prog Note ---
Hematology/Onc Progress Note Date of Service Apr 20, 2017. Diagnoses Hypersplenism with resultant pancytopenia Portal hypertension with radiologic evidence of varices Iron deficient anemia Medications Medications Administered Medications (Trade) Dose Ordered Sig/Kole Route Start Time Stop Time Status Last Admin Dose Admin Sodium Chloride 500 ml @ 999 mls/hr Q31M STAT IV 04/17/17 11:28 04/17/17 11:58 DC 04/17/17 11:56 999 MLS/HR Pantoprazole Sodium 40 mg/ Syringe 10 ml @ 5 mls/min NOW ONCE IV 04/17/17 11:30 04/17/17 11:31 DC 04/17/17 11:57 5 MLS/MIN Atorvastatin Calcium (Lipitor Tab) 40 mg HS PO 04/17/17 21:00 05/17/17 20:59 04/19/17 21:11 40 MG Folic Acid (Folvite Tab) 1 mg QAM PO 04/18/17 09:00 05/18/17 08:59 04/20/17 07:56 1 MG Gabapentin (Neurontin Cap) 300 mg TID PO 04/17/17 16:00 05/17/17 15:59 04/20/17 07:56 300 MG Acetaminophen/ Hydrocodone Bitart ([place] 5/325 Tab) 1 tab Q6H PRN PO 04/17/17 12:45 05/01/17 12:44 04/19/17 21:14 1 TAB Lisinopril (Zestril Tab) 2.5 mg DAILY PO 04/18/17 09:00 05/18/17 08:59 Future Hold 04/19/17 08:07 2.5 MG Magnesium Oxide (Mag-Ox Tab) 400 mg QAM PO 04/18/17 09:00 05/18/17 08:59 04/20/17 07:56 400 MG Mirtazapine (Remeron Tab) 30 mg HS PO 04/17/17 21:00 05/17/17 20:59 04/19/17 21:11 30 MG Ropinirole HCl (Requip Tab) 1 mg HS PRN PO 04/17/17 12:45 05/17/17 12:44 04/19/17 08:08 1 MG Trazodone HCl (Desyrel Tab) 50 mg HS PO 04/17/17 21:00 05/17/17 20:59 9/18/17 21:11 50 MG Donepezil HCl (Aricept Tab) 5 mg HS PO 04/17/17 21:00 05/17/17 20:59 04/19/17 21:12 5 MG Sodium Chloride 1,000 ml @ 100 mls/hr Q10H IV 04/17/17 12:41 04/18/17 16:47 DC 04/18/17 08:24 100 MLS/HR Insulin Aspart (novoLOG ASPART) SLIDING SCALE If C... ACHS SC 04/17/17 16:30 05/17/17 16:29 04/19/17 21:11 6 UNITS Pantoprazole Sodium 40 mg/ Syringe 10 ml @ 5 mls/min DAILY@ IV 04/17/17 21:00 05/17/17 20:59 04/20/17 07:56 5 MLS/MIN Insulin Human Isoph/Insulin Regular (novoLIN 70/30 REGULAR) 35 units BIDM SC 04/17/17 17:00 05/17/17 16:59 04/19/17 18:08 35 UNITS Ferrous Sulfate (Feosol Tab) 325 mg QAM PO 04/19/17 09:00 05/19/17 08:59 04/20/17 07:56 325 MG Dextrose/Sodium Chloride 1,000 ml @ 75 mls/hr [id number] IV 04/19/17 00:00 05/19/17 00:00 04/20/17 02:53 75 MLS/HR Ondansetron HCl (Zofran Inj) 4 mg STK-MED ONCE .ROUTE 04/19/17 10:52 04/19/17 10:53 DC 04/19/17 10:55 4 MG Sodium Chloride 1,000 ml @ 999 mls/hr Q1H1M IV 04/19/17 11:30 04/19/17 12:30 DC 04/19/17 11:36 999 MLS/HR Albuterol/ Ipratropium (Duoneb) 3 ml QIDR INH 04/19/17 16:00 05/19/17 15:59 04/20/17 06:53 3 ML Albuterol/ Ipratropium (Duoneb) 3 ml 1145 ONCE INH 04/19/17 11:45 04/19/17 11:46 DC 04/19/17 11:39 3 ML Ampicillin Sodium/ Sulbactam Sodium 1500 mg/Sodium Chloride 104 ml @ 200 mls/hr Q6H IV 04/19/17 12:00 04/26/17 11:59 04/20/17 05:45 200 MLS/HR Lactobacillus Acidophilus (Floranex Tab) 4 tab TIDM PO 04/19/17 12:00 05/19/17 11:59 04/20/17 07:56 4 TAB Sodium Chloride 500 ml @ 999 mls/hr Q31M IV 04/19/17 15:45 04/19/17 16:15 DC 04/19/17 16:13 999 MLS/HR Subjective She seems to be doing fairly well although yesterday she had some nausea. She denies any abdominal pain. She has very poor eyesight so is really not able to reliably review with me the color of her stools except that she states that not so long ago she felt they were piña or black Review of Systems: Constitutional: Negative for night sweats, or fever Eyes: Negative for event change of vision ENT: Negative for nasal discharge, sore throat, or deafness. She comments about having epistaxis Cardiovascular: Negative for chest pain, palpitations, dizziness, diaphoresis Respiratory: Negative for new shortness of breath,hemoptysis, or purulent cough Gastrointestinal: Negative for diarrhea, hematemesis, melena, nausea, vomiting , or dyspepsia Integumentary (skin): Negative for rash or jaundice discoloration Genitourinary: Negative for urinary frequency, no definite hematuria, or dysuria Neurological: Negative for weakness, seizure activity, headache, or dizziness Lymphatic/Hematologic: Negative for petechiae, bleeding or new adenopathy Musculoskeletal: Negative for new joint or back pain Allergic/Immunologic: Negative for unusual rash or pruritis. Vital Signs Vital Signs Past 12 Hours Date Time Temp Pulse Resp B/P (MAP) Pulse Ox O2 Delivery O2 Flow Rate FiO2 04/20/17 07:55 37.0 78 18 94/53 (67) 94 2.0 04/20/17 07:45 Room Air 04/20/17 04:34 36.5 72 18 92/47 (62) 90 04/20/17 04:00 Room Air 04/20/17 01:57 Room Air 04/20/17 00:01 37.0 74 18 92/49 (63) 93 Room Air 04/20/17 00:00 Room Air Physical Exam Constitutional: vitals are stable. Alert pleasant female Eyes: Eyes are BETTIE EOMI without conjuctival erythema or icterus. ENT: External examination was negative for masses. Neck: Negative for masses or palpable thyromegaly Respiratory: Lung sounds were generally clear bilaterally Cardiovascular: Heart was RRR without significant murmur, gallops aoe rubs Gastrointestinal: Protuberant abdomen that limits accurate exam Lymphatic system: there was no palpable peripheral lymphadenopathy Musculoskeletal System: The musculoskeletal system seemed concordant with age. Skin: The skin was negative for jaundice. Neurologic exam: The exam was negative for any focal findings. Deep tendon reflexes were equal and symmetrical. Psychiatric exam: Was essentially negative with normal mood and effect. Breast exam: Not done Constitutional: Level of Distress: NAD, chronically ill Eyes: Pupils: pertinent finding (anicteric sclerae) Lungs: Auscuitation: CTA except as noted Cardiovascular: Heart Auscultation: RRR Abdomen: Inspection & Palpation: soft, no tenderness, guarding & rebound Laboratory Last 24 Hours Test 04/19/17 11:15 04/19/17 15:42 04/19/17 16:30 04/19/17 20:25 Bedside Glucose 101 mg/dl 274 mg/dl 306 mg/dl Hemoglobin 7.4 g/dL Test 04/20/17 00:36 04/20/17 05:13 04/20/17 07:12 Bedside Glucose 236 mg/dl 136 mg/dl White Blood Count 2.72 K/uL Red Blood Count 2.42 M/uL Hemoglobin 7.3 g/dL Hematocrit 23.0 % Mean Corpuscular Volume 95.0 fL Mean Corpuscular Hemoglobin 30.2 pg Mean Corpuscular Hemoglobin Concent 31.7 g/dl Platelet Count 60 K/uL Mean Platelet Volume 9.9 fL Neutrophils (%) (Auto) 54.0 % Lymphocytes (%) (Auto) 29.8 % Monocytes (%) (Auto) 12.1 % Eosinophils (%) (Auto) 3.7 % Basophils (%) (Auto) 0.4 % Neutrophils # (Auto) 1.47 K/uL Lymphocytes # (Auto) 0.81 K/uL Monocytes # (Auto) 0.33 K/uL Eosinophils # (Auto) 0.10 K/uL Basophils # (Auto) 0.01 K/uL RDW Standard Deviation 58.3 fL RDW Coefficient of Variation 16.7 % Immature Granulocyte % (Auto) 0.0 % Immature Granulocyte # (Auto) 0.00 K/uL Ovalocytes 1+ Sodium Level 146 mmol/L Potassium Level 3.7 mmol/L Chloride Level 116 mmol/L Carbon Dioxide Level 24 mmol/L Anion Gap 6.0 mmol/L Blood Urea Nitrogen 6 mg/dl Creatinine 0.74 mg/dl Est Creatinine Clear Calc Drug Dose 75.6 ml/min Estimated GFR () 97.2 Estimated GFR (Non- 83.8 BUN/Creatinine Ratio 7.7 Random Glucose 148 mg/dl Calcium Level 7.0 mg/dl 25-Hydroxy Vitamin D Total 45.3 ng/ml Assessment & Plan Pancytopenia secondary to hypersplenism secondary to cirrhotic liver with radiologic evidence of portal hypertension. Iron deficiency anemia. Hemoglobin is 7.3 and would transfuse once again 1-2 units of blood. Would continue oral iron and we will arrange for follow-up visits to our clinic for Hb. monitoring of the above and probable need for parenteral iron as an outpatient. Upper endoscopy pending. Yesterday's attempt had to be canceled due to nausea as reviewed by prior notes.
--- NOTE | 2017-04-20 11:00 | Gastroenterology Progress Note ---
Progress Note Date of Service: Apr 20, 2017 Subjective Pt evaluation today including: conversation w/ patient, physical exam, chart review, lab review Pt was seen and examined, chart reviewed. EGD yesterday canceled due to nausea and vomiting. Pt tells me she felt better when she got back up to the floor and has not had any vomiting since yesterday, still some nausea. No BMs, thinks she is passing gas. Generalized lower abdominal pain today. No other concerns. Review of Systems Constitutional: No fever, No chills Respiratory: No cough Cardiac: No chest pain Abdomen: + pain, + nausea Medications Current Inpatient Medications Medications (Trade) Dose Ordered Sig/Kole Route Start Time Stop Time Status Last Admin Dose Admin Atorvastatin Calcium (Lipitor Tab) 40 mg HS PO 04/17/17 21:00 05/17/17 20:59 04/19/17 21:11 40 MG Folic Acid (Folvite Tab) 1 mg QAM PO 04/18/17 09:00 05/18/17 08:59 04/20/17 07:56 1 MG Gabapentin (Neurontin Cap) 300 mg TID PO 04/17/17 16:00 05/17/17 15:59 04/20/17 07:56 300 MG Acetaminophen/ Hydrocodone Bitart ([place] 5/325 Tab) 1 tab Q6H PRN PO 04/17/17 12:45 05/01/17 12:44 04/19/17 21:14 1 TAB Lisinopril (Zestril Tab) 2.5 mg DAILY PO 04/18/17 09:00 05/18/17 08:59 Future Hold 04/19/17 08:07 2.5 MG Magnesium Oxide (Mag-Ox Tab) 400 mg QAM PO 04/18/17 09:00 05/18/17 08:59 04/20/17 07:56 400 MG Mirtazapine (Remeron Tab) 30 mg HS PO 04/17/17 21:00 05/17/17 20:59 04/19/17 21:11 30 MG Ropinirole HCl (Requip Tab) 1 mg HS PRN PO 04/17/17 12:45 05/17/17 12:44 04/19/17 08:08 1 MG Trazodone HCl (Desyrel Tab) 50 mg HS PO 04/17/17 21:00 05/17/17 20:59 04/19/17 21:11 50 MG Donepezil HCl (Aricept Tab) 5 mg HS PO 04/17/17 21:00 05/17/17 20:59 04/19/17 21:12 5 MG Acetaminophen (Tylenol Tab) 650 mg Q4H PRN PO 04/17/17 12:45 05/17/17 12:44 Ondansetron HCl (Zofran Inj) 4 mg Q6H PRN IV 04/17/17 12:45 05/17/17 12:44 Insulin Aspart (novoLOG ASPART) SLIDING SCALE If C... ACHS SC 04/17/17 16:30 05/17/17 16:29 04/19/17 21:11 6 UNITS Glucose (Glucose 40% Gel) 15-30 GRAMS 15 GRAMS... UD PRN PO 04/17/17 12:45 05/17/17 12:44 Glucose (Glucose Chew Tab) 4-8 Tablets 4 Tabl... UD PRN PO 04/17/17 12:45 05/17/17 12:44 Dextrose (Dextrose 50% 50ML Syringe) 25-50ML OF 50% DW IV FOR... UD PRN IV 04/17/17 12:45 05/17/17 12:44 Glucagon (Glucagon Inj) 1 mg UD PRN SQ 04/17/17 12:45 05/17/17 12:44 Pantoprazole Sodium 40 mg/ Syringe 10 ml @ 5 mls/min DAILY@,21 IV 04/17/17 21:00 05/17/17 20:59 04/20/17 07:56 5 MLS/MIN Insulin Human Isoph/Insulin Regular (novoLIN 70/30 REGULAR) 35 units BIDM SC 04/17/17 17:00 05/17/17 16:59 04/19/17 18:08 35 UNITS Eye Irrigation Solution (Dacriose Soln) 1 appln Q4HWA PRN OP 04/18/17 16:30 05/18/17 16:29 Ferrous Sulfate (Feosol Tab) 325 mg QAM PO 04/19/17 09:00 05/19/17 08:59 04/20/17 07:56 325 MG Dextrose/Sodium Chloride 1,000 ml @ 75 mls/hr [id number] IV 04/19/17 00:00 05/19/17 00:00 04/20/17 02:53 75 MLS/HR Albuterol/ Ipratropium (Duoneb) 3 ml QIDR INH 04/19/17 16:00 05/19/17 15:59 04/20/17 06:53 3 ML Ampicillin Sodium/ Sulbactam Sodium 1500 mg/Sodium Chloride 104 ml @ 200 mls/hr Q6H IV 04/19/17 12:00 04/26/17 11:59 04/20/17 05:45 200 MLS/HR Lactobacillus Acidophilus (Floranex Tab) 4 tab TIDM PO 04/19/17 12:00 05/19/17 11:59 04/20/17 07:56 4 TAB Objective Vital Signs Date Time Temp Pulse Resp B/P (MAP) Pulse Ox O2 Delivery O2 Flow Rate FiO2 04/20/17 07:55 37.0 78 18 94/53 (67) 94 2.0 04/20/17 07:45 Room Air 04/20/17 04:34 36.5 72 18 92/47 (62) 90 04/20/17 04:00 Room Air 04/20/17 01:57 Room Air 04/20/17 00:01 37.0 74 18 92/49 (63) 93 Room Air 04/20/17 00:00 Room Air 04/19/17 20:18 72 16 98 Nasal Cannula 2.0 04/19/17 20:00 Room Air 04/19/17 16:00 Nasal Cannula 2.0 04/19/17 15:29 75 16 97 Nasal Cannula 2.0 04/19/17 15:11 36.9 74 18 87/33 (51) 96 95/48 (64) 04/19/17 12:30 110/57 (74) 04/19/17 12:01 94 Room Air 04/19/17 11:44 81 14 96 Nasal Cannula 2.0 04/19/17 11:34 37.0 65 18 90/47 (61) 95 2.0 Physical Exam General Appearance: no apparent distress Eyes: PERRL ENT: hearing grossly normal Neck: supple Respiratory/Chest: lungs clear Abdomen: soft, no organomegaly, + tenderness, + pertinent finding (hypoactive) Neurologic/Psych: alert, normal mood/affect, oriented x 3 Skin: normal color Laboratory Results Last 24 Hours Test 04/19/17 11:15 04/19/17 15:42 04/19/17 16:30 04/19/17 20:25 Bedside Glucose 101 mg/dl 274 mg/dl 306 mg/dl Hemoglobin 7.4 g/dL Test 04/20/17 00:36 04/20/17 05:13 04/20/17 07:12 Bedside Glucose 236 mg/dl 136 mg/dl White Blood Count 2.72 K/uL Red Blood Count 2.42 M/uL Hemoglobin 7.3 g/dL Hematocrit 23.0 % Mean Corpuscular Volume 95.0 fL Mean Corpuscular Hemoglobin 30.2 pg Mean Corpuscular Hemoglobin Concent 31.7 g/dl Platelet Count 60 K/uL Mean Platelet Volume 9.9 fL Neutrophils (%) (Auto) 54.0 % Lymphocytes (%) (Auto) 29.8 % Monocytes (%) (Auto) 12.1 % Eosinophils (%) (Auto) 3.7 % Basophils (%) (Auto) 0.4 % Neutrophils # (Auto) 1.47 K/uL Lymphocytes # (Auto) 0.81 K/uL Monocytes # (Auto) 0.33 K/uL Eosinophils # (Auto) 0.10 K/uL Basophils # (Auto) 0.01 K/uL RDW Standard Deviation 58.3 fL RDW Coefficient of Variation 16.7 % Immature Granulocyte % (Auto) 0.0 % Immature Granulocyte # (Auto) 0.00 K/uL Ovalocytes 1+ Sodium Level 146 mmol/L Potassium Level 3.7 mmol/L Chloride Level 116 mmol/L Carbon Dioxide Level 24 mmol/L Anion Gap 6.0 mmol/L Blood Urea Nitrogen 6 mg/dl Creatinine 0.74 mg/dl Est Creatinine Clear Calc Drug Dose 75.6 ml/min Estimated GFR () 97.2 Estimated GFR (Non- 83.8 BUN/Creatinine Ratio 7.7 Random Glucose 148 mg/dl Calcium Level 7.0 mg/dl 25-Hydroxy Vitamin D Total 45.3 ng/ml Assessment and Plan A 66-year-old female with a history of cirrhosis manifested by portal hypertension with complications of esophageal varices and portal gastropathy. She does present with a worsening anemia. I suspect that this may be related to her portal gastropathy and combined use of multiple antiplatelet agents. I would suggest that the patient have an upper endoscopy for further evaluation. If she is found to have significant portal hypertensive gastropathy, we may need to consider ablative therapy or perhaps alteration of her antiplatelet regimen to decrease the microscopic blood losses. KUB today Continue present medications Will plan for EGD 04/21/17 ATTESTATION: I have performed a history and physical examination of this patient and reviewed the electronic record. Specifically, on physical examination there is mild diffuse tenderness. I have discussed the case with DENIZ Anderson. The above note reflects my findings, conclusions, and recommendations. Berto Fernandez MD
[2017-04-20] MEDS ORDERED: INSULIN 70% ASPART PROTAMINE/30% ASPART SC ONE (12:30)
--- NOTE | 2017-04-20 14:11 | DIAGNOSTIC IMAGING REPORT ---
KUB CLINICAL HISTORY: Abdominal pain, nausea and constipation. COMPARISON STUDY: CT of the abdomen and pelvis April 17, 2017. FINDINGS: Gallstones are noted. The bowel gas pattern is normal. Extensive vascular calcifications are noted. IMPRESSION: 1. No evidence for a bowel obstruction. 2. Cholelithiasis. Electronically signed by: Donovan Mcdonald M.D. 04/20/2017 2:10 PM Dictated Date/Time: 04/20/2017 2:05 PM
--- NOTE | 2017-04-20 15:41 | Progress Note ---
Subjective Date of Service: Apr 20, 2017. Subjective Pt evaluation today including: conversation w/ patient, physical exam, chart review, lab review, review of inpatient medication list hungry notes felt tinglywhen getting up and walking. skin feels a little crawly separately notes feeling skin crawling sensation off and on for months at home - and occassionally when she's doing dishes she thinks she might see someone go by the window - otherwise no visual or auditory hallucinations. notes she follows actively w psych and depression has been under good control. stomach hurts a little, but ntoes this happens when she doesn't eat for a while , feels a little woozy no sob. no f/c/s. no new/changed cough/wheeze or sputum (notes having a degree (small) of chronic cough and sputum, this is unchanged) Problem List Medical Problems: (1) Abdominal pain Status: Acute (2) Anemia Status: Acute (3) Back pain Status: Acute (4) Cat bite of left hand with infection Status: Acute (5) Cellulitis of left hand Status: Acute (6) Colitis Status: Acute (7) Epistaxis Status: Acute (8) Fever Status: Acute (9) GI bleeding Status: Acute (10) Head injury Status: Acute (11) Head injury Status: Acute (12) Headache Status: Acute (13) Syncope Status: Acute (14) Weakness Status: Acute Review of Systems all other ROS otherwise negative except for as above Objective Vital Signs Date Time Temp Pulse Resp B/P (MAP) Pulse Ox O2 Delivery O2 Flow Rate FiO2 04/20/17 15:20 76 16 98 Room Air 04/20/17 15:00 37.0 80 18 109/60 96 04/20/17 14:40 37.0 80 16 104/57 04/20/17 12:30 Room Air 04/20/17 11:17 72 16 97 Room Air 04/20/17 07:55 37.0 78 18 94/53 (67) 94 2.0 04/20/17 07:45 Room Air 04/20/17 04:34 36.5 72 18 92/47 (62) 90 04/20/17 04:00 Room Air 04/20/17 01:57 Room Air 04/20/17 00:01 37.0 74 18 92/49 (63) 93 Room Air 04/20/17 00:00 Room Air 04/19/17 20:18 72 16 98 Nasal Cannula 2.0 04/19/17 20:00 Room Air 04/19/17 16:00 Nasal Cannula 2.0 Physical Exam General Appearance: no apparent distress Eyes: EOMI ENT: hearing grossly normal Neck: trachea midline Respiratory/Chest: lungs clear, normal breath sounds, no respiratory distress, no accessory muscle use Abdomen: soft, + tenderness (epigastric without guarding/rebound. no masses/ organomegaly. 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, alert, normal mood/affect Skin: normal color, warm/dry Laboratory Results Last 24 Hours Test 04/19/17 15:42 04/19/17 16:30 04/19/17 20:25 04/20/17 00:36 Hemoglobin 7.4 g/dL Bedside Glucose 274 mg/dl 306 mg/dl 236 mg/dl Test 04/20/17 05:13 04/20/17 07:12 04/20/17 11:32 White Blood Count 2.72 K/uL Red Blood Count 2.42 M/uL Hemoglobin 7.3 g/dL Hematocrit 23.0 % Mean Corpuscular Volume 95.0 fL Mean Corpuscular Hemoglobin 30.2 pg Mean Corpuscular Hemoglobin Concent 31.7 g/dl Platelet Count 60 K/uL Mean Platelet Volume 9.9 fL Neutrophils (%) (Auto) 54.0 % Lymphocytes (%) (Auto) 29.8 % Monocytes (%) (Auto) 12.1 % Eosinophils (%) (Auto) 3.7 % Basophils (%) (Auto) 0.4 % Neutrophils # (Auto) 1.47 K/uL Lymphocytes # (Auto) 0.81 K/uL Monocytes # (Auto) 0.33 K/uL Eosinophils # (Auto) 0.10 K/uL Basophils # (Auto) 0.01 K/uL RDW Standard Deviation 58.3 fL RDW Coefficient of Variation 16.7 % Immature Granulocyte % (Auto) 0.0 % Immature Granulocyte # (Auto) 0.00 K/uL Ovalocytes 1+ Sodium Level 146 mmol/L Potassium Level 3.7 mmol/L Chloride Level 116 mmol/L Carbon Dioxide Level 24 mmol/L Anion Gap 6.0 mmol/L Blood Urea Nitrogen 6 mg/dl Creatinine 0.74 mg/dl Est Creatinine Clear Calc Drug Dose 75.6 ml/min Estimated GFR () 97.2 Estimated GFR (Non- 83.8 BUN/Creatinine Ratio 7.7 Random Glucose 148 mg/dl Calcium Level 7.0 mg/dl 25-Hydroxy Vitamin D Total 45.3 ng/ml Bedside Glucose 136 mg/dl 147 mg/dl Assessment and Plan syncope/dizziness -almost certainly related to anemia -feeling slightly "tingly" with exertion and feeling almost lightheaded - w Hgb still mid 7's - appearing to need additional 1 unit transfusion due to symptomatic anemia Acute on Chronic anemia in setting of Pancytopenia with questionable history of Hemochromatosis -now appears iron deficient - if she truly did have hemochromatosis then obviously this would be significant for a lot of ongoing blood loss. review of old records suggests that at least as of 2008 highest ferritin was around 230, highest % saturation was around 35%, however -but does appear iron deficiency - for EGD tomorrow - w epigastric tenderness and UGI sx strongly suspect this will be positive for cause -continue to follow hemoglobin, transfusion due to symptoms as above hypotension -hold anti-hypertensives, fluids, follow Hgb, transfuse again as above nausea/vomiting -likely will relate to UGI pathology. stable now. continue PPI and prn zofran hypoxia -concern on aspiration during vomiting - but has cleared and no longer sob - can stop abx and continue to follow HTN -hold Lisinopril DM II -Continue Novolin & Insulin sliding scale, sugars reasonable for now, adjust insulins based on intake -A1C 7.3 hypocalcemia -vitamin D adequate Dyslipidemia -Continue Lipitor Cirrhosis, Esophageal varices, portal HTN, portal gastropathy -adds ddx on UGI bleeding sources. anticipate EGD tomorrow Diabetic retinopathy, macular degeneration, blindness in left eye, subconjunctival hematoma right eye, Eye itching -continue eye rinse PRN irritation/itching of the right eye CAD -Chronically on ASA, Plavix- currently held due to anemia and concern on UGI source Depression -Remeron as outpatient Folic Acid Deficiency, Vitamin D Deficiency- chronic -Continue supplementation, check D as above DVT proph -pharmacologic contraindicated due to possible UGI bleeding
[2017-04-21] VITALS (9 sets, daily range): BP systolic 105–116; BP diastolic 52–59; PULSE 69–85; TEMP 37–37.2; O2SAT 92–96
[2017-04-21] MEDS: MIRTAZAPINE TAB 15 MG TAB PO SCH (00:14)
[2017-04-21] MEDS: TRAZODONE HCL 50 MG TAB PO SCH (00:14)
[2017-04-21] MEDS: ATORVASTATIN 40 MG TAB PO SCH (00:14)
[2017-04-21] MEDS: GABAPENTIN 300 MG CAP PO SCH ×3 (00:14→14:17)
[2017-04-21] MEDS: DONEPEZIL HCL 5 MG TAB PO SCH (00:15)
[2017-04-21] MEDS: D5W AND 1/2NSS 1,000 ML IV SCH ×2 (05:32→19:14)
[2017-04-21 06:10] LABS: HEMATOCRIT 25.3 % (37-47); MEAN CELL VOLUME 93.7 fL (80-100); WHITE BLOOD COUNT 2.79 K/uL (4.8-10.8)
[2017-04-21 06:19] LABS: MEAN PLATELET VOLUME 10.4 fL (7.4-10.4); PLATELET COUNT 36 K/uL (130-400)
[2017-04-21 06:52] LABS: CALCIUM 7.3 mg/dl (8.5-10.1); CREATININE 0.89 mg/dl (0.60-1.20)
[2017-04-21 06:55] LABS: ANISOCYTOSIS PRESENT; BASO % 0.7 %; BASO ABS # 0.02 K/uL (0-0.2); COMPLETE YES; EOS % 3.2 %; LYMPH % 31.9 %; LYMPH ABS # 0.89 K/uL (1.2-3.4); MONO % 10.8 %; NEUT % 53.4 %
--- NOTE | 2017-04-21 07:09 | DIAGNOSTIC IMAGING REPORT ---
GALLBLADDER-ABD LIMITED CLINICAL HISTORY: 66 years-old Female presenting with ?gallstones, eval CBD, nausea. TECHNIQUE: Real-time grayscale and limited color Doppler ultrasound imaging of the abdomen limited to the right upper quadrant was performed. COMPARISON: CT from 04/17/2017. FINDINGS: Pancreas: Largely obscured due to overlying bowel gas. Liver: Hyperechogenic parenchyma with heterogeneous echotexture, likely indicating fibrosis or steatosis. The liver measures 15.7 cm in maximal sagittal dimension. No sonographic evidence of hepatic mass. Main portal vein patent with normal directional flow, although with blunted waveforms. Biliary: No intrahepatic biliary ductal dilatation. Common bile duct measures up to 6 mm in diameter. Gallbladder: Cholelithiasis with borderline wall thickening. The gallbladder is nondistended. Sonographic Jackman's sign negative. Right kidney: Apparent expansion of renal sinus fat, suggesting cortical atrophy. The right kidney is normal in size, measuring 10.4 cm. No hydronephrosis. Ascites: None. IMPRESSION: 1. Hyperechogenic hepatic parenchyma with heterogeneous echotexture, likely indicating fibrosis or steatosis. Blunted portal venous waveforms could indicate elevated portal venous pressures. 2. Cholelithiasis without convincing evidence of cholecystitis or biliary ductal dilatation. Electronically signed by: Maury Lucas M.D. 04/21/2017 7:08 AM Dictated Date/Time: 04/21/2017 7:05 AM
[2017-04-21] MEDS: ALBUT/IPRATROP 3MG/0.5MG NEB 3 ML VIAL INH SCH ×3 (07:40→14:27)
[2017-04-21] MEDS: PANTOprazole INJ 40 MG in SYRINGE 0 ML IV SCH (08:07)
[2017-04-21] MEDS: LACTOBACILLUS ACIDOPHILUS (FLORANEX) TAB PO SCH ×3 (08:07→17:41)
[2017-04-21] MEDS: MAGNESIUM OXIDE 400 MG TAB PO SCH (08:08)
[2017-04-21] MEDS: FERROUS SULFATE 325 MG TAB PO SCH (08:08)
[2017-04-21] MEDS: INSULIN ASPART 100 UNITS/ML 3 ML PEN SC SCH ×4 (08:13→18:17)
[2017-04-21] MEDS: INSULIN HUMAN 70% NPH/30% REGULAR SC SCH ×2 (08:14→17:49)
--- NOTE | 2017-04-21 08:33 | Progress Note ---
Progress Note Date of Service Apr 21, 2017. Progress Note pt was see and evaluated, no acute events overnight. NPO for EGD today, no GI concerns, She does wish to discuss some right breast warmth with internal medicine. She tells me she has had a mammogram but it was many years ago. She tells me sometimes her right breast feels heavy. Advised to discuss with internal medicine. NPO for EGD today.
[2017-04-21] MEDS ORDERED: PROPOFOL IV EMULSION 10 MG/ML 20 ML VIAL IV ONE (09:14)
[2017-04-21] MEDS ORDERED: LIDOCAINE HCL 2% 2 ML VIAL (20MG/ML) ONE ×3 (09:14)
--- NOTE | 2017-04-21 09:14 | Hematology/Oncology Prog Note ---
Hematology/Onc Progress Note Date of Service Apr 21, 2017. Diagnoses Hypersplenism with resultant pancytopenia Portal hypertension with radiologic evidence of varices Iron deficient anemia Medications Medications Administered Medications (Trade) Dose Ordered Sig/Kole Route Start Time Stop Time Status Last Admin Dose Admin Sodium Chloride 500 ml @ 999 mls/hr Q31M STAT IV 04/17/17 11:28 04/17/17 11:58 DC 04/17/17 11:56 999 MLS/HR Pantoprazole Sodium 40 mg/ Syringe 10 ml @ 5 mls/min NOW ONCE IV 04/17/17 11:30 04/17/17 11:31 DC 04/17/17 11:57 5 MLS/MIN Atorvastatin Calcium (Lipitor Tab) 40 mg HS PO 04/17/17 21:00 05/17/17 20:59 04/21/17 00:14 40 MG Folic Acid (Folvite Tab) 1 mg QAM PO 04/18/17 09:00 05/18/17 08:59 04/21/17 08:08 1 MG Gabapentin (Neurontin Cap) 300 mg TID PO 04/17/17 16:00 05/17/17 15:59 04/21/17 08:07 300 MG Acetaminophen/ Hydrocodone Bitart ([place] 5/325 Tab) 1 tab Q6H PRN PO 04/17/17 12:45 05/01/17 12:44 04/19/17 21:14 1 TAB Lisinopril (Zestril Tab) 2.5 mg DAILY PO 04/18/17 09:00 05/18/17 08:59 Future Hold 04/19/17 08:07 2.5 MG Magnesium Oxide (Mag-Ox Tab) 400 mg QAM PO 04/18/17 09:00 05/18/17 08:59 04/21/17 08:08 400 MG Mirtazapine (Remeron Tab) 30 mg HS PO 04/17/17 21:00 05/17/17 20:59 04/21/17 00:14 30 MG Ropinirole HCl (Requip Tab) 1 mg HS PRN PO 04/17/17 12:45 05/17/17 12:44 04/19/17 08:08 1 MG Trazodone HCl (Desyrel Tab) 50 mg HS PO 04/17/17 21:00 05/17/17 20:59 9/20/17 00:14 50 MG Donepezil HCl (Aricept Tab) 5 mg HS PO 04/17/17 21:00 05/17/17 20:59 04/21/17 00:15 5 MG Sodium Chloride 1,000 ml @ 100 mls/hr Q10H IV 04/17/17 12:41 04/18/17 16:47 DC 04/18/17 08:24 100 MLS/HR Insulin Aspart (novoLOG ASPART) SLIDING SCALE If C... ACHS SC 04/17/17 16:30 05/17/17 16:29 04/21/17 08:13 1 UNITS Pantoprazole Sodium 40 mg/ Syringe 10 ml @ 5 mls/min DAILY@ IV 04/17/17 21:00 05/17/17 20:59 04/21/17 08:07 5 MLS/MIN Insulin Human Isoph/Insulin Regular (novoLIN 70/30 REGULAR) 35 units BIDM SC 04/17/17 17:00 05/17/17 16:59 04/21/17 08:14 35 UNITS Ferrous Sulfate (Feosol Tab) 325 mg QAM PO 04/19/17 09:00 05/19/17 08:59 04/21/17 08:08 325 MG Dextrose/Sodium Chloride 1,000 ml @ 75 mls/hr [id number] IV 04/19/17 00:00 05/19/17 00:00 04/21/17 05:32 75 MLS/HR Ondansetron HCl (Zofran Inj) 4 mg STK-MED ONCE .ROUTE 04/19/17 10:52 04/19/17 10:53 DC 04/19/17 10:55 4 MG Sodium Chloride 1,000 ml @ 999 mls/hr Q1H1M IV 04/19/17 11:30 04/19/17 12:30 DC 04/19/17 11:36 999 MLS/HR Albuterol/ Ipratropium (Duoneb) 3 ml QIDR INH 04/19/17 16:00 05/19/17 15:59 04/21/17 07:40 3 ML Albuterol/ Ipratropium (Duoneb) 3 ml 1145 ONCE INH 04/19/17 11:45 04/19/17 11:46 DC 04/19/17 11:39 3 ML Ampicillin Sodium/ Sulbactam Sodium 1500 mg/Sodium Chloride 104 ml @ 200 mls/hr Q6H IV 04/19/17 12:00 04/20/17 12:24 DC 04/20/17 05:45 200 MLS/HR Lactobacillus Acidophilus (Floranex Tab) 4 tab TIDM PO 04/19/17 12:00 05/19/17 11:59 04/21/17 08:07 4 TAB Sodium Chloride 500 ml @ 999 mls/hr Q31M IV 04/19/17 15:45 04/19/17 16:15 DC 04/19/17 16:13 999 MLS/HR Insulin Aspart Prota 70%/Aspart 30% (novoLOG MIX 70/ 30) 10 units QDL ONCE SC 04/20/17 12:30 04/20/17 12:34 DC 04/20/17 12:30 10 UNITS Subjective On her way for an EGD this morning. She denies any new pain. There has been no overt bleeding. Review of Systems: Constitutional: Negative for night sweats, or fever ENT: Negative for epistaxis, nasal discharge, sore throat, or deafness Cardiovascular: Negative for chest pain, palpitations, dizziness, diaphoresis Respiratory: Negative for new shortness of breath,hemoptysis, or purulent cough Gastrointestinal: Negative for diarrhea, hematemesis, melena, nausea, vomiting , or dyspepsia Integumentary (skin): Negative for rash or jaundice discoloration Neurological: Negative for weakness, seizure activity, headache, or dizziness Lymphatic/Hematologic: Negative for petechiae, bleeding or new adenopathy Musculoskeletal: Negative for new joint or back pain Allergic/Immunologic: Negative for unusual rash or pruritis. Vital Signs Vital Signs Past 12 Hours Date Time Temp Pulse Resp B/P (MAP) Pulse Ox O2 Delivery O2 Flow Rate FiO2 04/21/17 09:09 36.8 80 20 110/42 (64) 94 Room Air 04/21/17 07:40 78 18 95 Room Air 04/21/17 07:36 37.1 77 20 105/55 (72) 93 04/21/17 04:13 37.2 82 20 109/52 (71) 92 Room Air 04/21/17 04:00 Room Air 04/21/17 00:13 37.2 85 18 116/57 (76) 96 Nasal Cannula 2.0 04/21/17 00:00 Room Air Physical Exam Constitutional: vitals are stable. Eyes: Eyes are BETTIE EOMI without conjuctival erythema or icterus. ENT: External examination was negative for masses. Neck: Negative for masses or palpable thyromegaly Respiratory: Lung sounds were generally clear bilaterally Cardiovascular: Heart was RRR without significant murmur, gallops aoe rubs Gastrointestinal: No palpable hepatic or splenomegaly. The abdomen was soft with normal bowel sounds. Lymphatic system: there was no palpable peripheral lymphadenopathy Musculoskeletal System: The musculoskeletal system seemed concordant with age. Skin: The skin was negative for jaundice. Neurologic exam: The exam was negative for any focal findings. Deep tendon reflexes were equal and symmetrical. Psychiatric exam: Was essentially negative with normal mood and effect. Constitutional: Level of Distress: NAD, chronically ill Eyes: Pupils: pertinent finding (anicteric sclerae) Lungs: Auscuitation: CTA except as noted Cardiovascular: Heart Auscultation: RRR Abdomen: Inspection & Palpation: soft, no tenderness, guarding & rebound Laboratory Last 24 Hours Test 04/20/17 11:32 04/20/17 16:14 04/20/17 19:57 04/20/17 20:30 Bedside Glucose 147 mg/dl 254 mg/dl 306 mg/dl Stool Occult Blood NEGATIVE Test 04/21/17 05:58 04/21/17 07:23 White Blood Count 2.79 K/uL Red Blood Count 2.70 M/uL Hemoglobin 8.1 g/dL Hematocrit 25.3 % Mean Corpuscular Volume 93.7 fL Mean Corpuscular Hemoglobin 30.0 pg Mean Corpuscular Hemoglobin Concent 32.0 g/dl Platelet Count 36 K/uL Mean Platelet Volume 10.4 fL Neutrophils (%) (Auto) 53.4 % Lymphocytes (%) (Auto) 31.9 % Monocytes (%) (Auto) 10.8 % Eosinophils (%) (Auto) 3.2 % Basophils (%) (Auto) 0.7 % Neutrophils # (Auto) 1.49 K/uL Lymphocytes # (Auto) 0.89 K/uL Monocytes # (Auto) 0.30 K/uL Eosinophils # (Auto) 0.09 K/uL Basophils # (Auto) 0.02 K/uL RDW Standard Deviation 58.8 fL RDW Coefficient of Variation 17.3 % Immature Granulocyte % (Auto) 0.0 % Immature Granulocyte # (Auto) 0.00 K/uL Anisocytosis PRESENT Sodium Level 147 mmol/L Potassium Level 4.0 mmol/L Chloride Level 118 mmol/L Carbon Dioxide Level 24 mmol/L Anion Gap 5.0 mmol/L Blood Urea Nitrogen 8 mg/dl Creatinine 0.89 mg/dl Est Creatinine Clear Calc Drug Dose 64.9 ml/min Estimated GFR () 77.7 Estimated GFR (Non- 67.1 BUN/Creatinine Ratio 9.0 Random Glucose 168 mg/dl Calcium Level 7.3 mg/dl Total Bilirubin 0.9 mg/dl Direct Bilirubin 0.3 mg/dl Aspartate Amino Transf (AST/SGOT) 71 U/L Alanine Aminotransferase (ALT/SGPT) 27 U/L Alkaline Phosphatase 91 U/L Total Protein 5.0 gm/dl Albumin 2.1 gm/dl Bedside Glucose 166 mg/dl Assessment & Plan Pancytopenia secondary to hypersplenism secondary to cirrhotic liver with radiologic evidence of portal hypertension. Iron deficiency anemia. Hemoglobin slightly better following transfusion. While she is here we will order daily parenteral iron daily. This will also be done as an outpatient. The patient was informed of this today and she understands.
[2017-04-21] MEDS ORDERED: PHENYLEPHRINE 100MCG/ML 5ML SYR ONE (09:35)
--- NOTE | 2017-04-21 09:51 | GI REPORT ---
Procedure Date: 04/21/2017 9:32 AM Procedure: Upper GI endoscopy Indications: Iron deficiency anemia, Cirrhosis with suspected esophageal varices Medicines: Monitored Anesthesia Care Complications: No immediate complications. Estimated blood loss: None. Estimated Blood Loss: Estimated blood loss: none. Procedure: Pre-Anesthesia Assessment: - Prior to the procedure, a History and Physical was performed, and patient medications, allergies and sensitivities were reviewed. The patient's tolerance of previous anesthesia was reviewed. - ASA Grade Assessment: III - A patient with severe systemic disease. After obtaining informed consent, the endoscope was passed under direct vision. Throughout the procedure, the patient's blood pressure, pulse, and oxygen saturations were monitored continuously. The scope was introduced through the mouth, and advanced to the third part of duodenum. The upper GI endoscopy was accomplished with ease. The patient tolerated the procedure well. Findings: Grade II, large (> 5 mm) varices were found in the lower third of the esophagus. The Z-line was regular and was found 35 cm from the incisors. Moderate portal hypertensive gastropathy was found in the gastric antrum. The examined duodenum was normal. Impression: - Grade II and large (> 5 mm) esophageal varices. - Z-line regular, 35 cm from the incisors. - Portal hypertensive gastropathy. - Normal examined duodenum. - No specimens collected. Recommendation: - Start beta sim. - Return patient to hospital [facility] for ongoing care. Berto Fernandez M.D. Berto Fernandez MD 04/21/2017 9:50:26 AM This report has been signed electronically. Note Initiated On: 04/21/2017 9:32 AM I attest to the content of the Intraoperative Record and orders documented therein, exceptions below
[2017-04-21] MEDS ORDERED: SODIUM FERRIC GLUCONATE IV SCH (10:00)
[2017-04-21] MEDS ORDERED: SODIUM CHLORIDE 0.9% IV SCH (10:00)
--- NOTE | 2017-04-21 10:30 | Anesthesiology Progress Note ---
Anesthesia Post Op Note Date & Time Apr 21, 2017 at 10:30 Vital Signs Pain Intensity: 3.0 Vital Signs Past 12 Hours Date Time Temp Pulse Resp B/P (MAP) Pulse Ox O2 Delivery O2 Flow Rate FiO2 04/21/17 10:27 68 20 97/46 (63) 97 Room Air 04/21/17 10:13 70 20 107/46 (66) 97 Room Air 04/21/17 09:57 73 20 63/28 (40) 96 Room Air 04/21/17 09:43 73 20 89/33 (51) 99 Room Air 10 04/21/17 09:09 36.8 80 20 110/42 (64) 94 Room Air 04/21/17 07:40 78 18 95 Room Air 04/21/17 07:36 37.1 77 20 105/55 (72) 93 04/21/17 04:13 37.2 82 20 109/52 (71) 92 Room Air 04/21/17 04:00 Room Air 04/21/17 00:13 37.2 85 18 116/57 (76) 96 Nasal Cannula 2.0 04/21/17 00:00 Room Air Notes Mental Status: alert / awake / arousable, participated in evaluation Pt Amnestic to Procedure: Yes Nausea / Vomiting: adequately controlled Pain: adequately controlled Airway Patency, RR, SpO2: stable & adequate BP & HR: stable & adequate Hydration State: stable & adequate Anesthetic Complications: no major complications apparent
[2017-04-21] MEDS ORDERED: FERR324T PO (16:02)
[2017-04-21] MEDS ORDERED: NADO20TA PO (16:02)
[2017-04-21] MEDS ORDERED: HYDR-5688 PO (16:02)
--- NOTE | 2017-04-21 16:16 | Discharge Instructions ---
Discharge Instructions Date of Service Apr 21, 2017. Admission Reason for Admission: Anemia,Syncope Discharge Discharge Diagnosis / Problem: syncope due to anemia and weakness/general deconditioning Discharge Goals Goal(s): Diagnostic testing, Therapeutic intervention Activity Recommendations Activity Level: Assistance Required . Additional Information Patient informed of condition: Yes Advance Directives: No DNR: No Level of Care: Acute Rehab Communicable Disease: No Prognosis: Stable Instructions / Follow-Up Instructions / Follow-Up syncope - patient has had multiple falls recently - after further review appears to have had syncope due to anemia (see below) and generalized weakness/ deconditioning anemia -despite her reported history of hemochromatosis, she is clearly now iron deficient. -stools are heme negative, but given iron deficiency and esophageal varices, a degree of chronic GI blood loss is possible -given her upper GI pathology related to cirrhosis, it's also quite likely that poor intake of iron and/or poor absorption of iron is a strong contributor -replace iron (ferrous gluconate daily, IV iron guided by Dr Knutson) -follow CBC at least weekly x 4 (more often if clinically warranted) weakness/deconditioning -physically weak, likely as a result of comorbidities including anemia -will benefit from PT/OT and nutritional support coronary artery disease -had been on dual antiplatelet therapy, but to the best i can tell she does not have stents and i cannot find a clear indication for dual antiplatelet therapy - -- therefore plavix has been held. because of prior history of coronary disease (coupled with the fact that varices are not bleeding and her stool is heme negative) aspirin will be cautiously re-started esophageal varices -GI has started nadolol - follow for tolerability, reduce dosing if needed mild hypernatremia (Na 146) -encourage PO intake, follow up CMP (CMP due to also very mildly elevated AST @ 71) Wednesday, then as clinically warranted right upper chest pain -rib related by exam, symptoms entirely reproducible -voltaren gel to right costochondral junction QID until symptoms improve -appears to be soft tissue injury to ribs from fall Current Hospital Diet Patient's current hospital diet: Diabetes Type 2 Diet Discharge Diet Recommended Diet: Diabetes Type 2 Diet Pending Studies Studies pending at discharge: no Laboratory Results Hemoglobin A1c Test 03/24/17 14:55 Range/Units Estimated Average Glucose 160 mg/dl Hemoglobin A1c 7.2 H 4.5-5.6 % Lipid Panel Test 03/24/17 14:55 Range/Units Triglycerides Level 141 0-150 mg/dl Cholesterol Level 93 0-200 mg/dl HDL Cholesterol 31 mg/dl Cholesterol/HDL Ratio 3.0 LDL Cholesterol, Calculated 34 mg/dl Medical Emergencies . Who to Call and When: Medical Emergencies: If at any time you feel your situation is an emergency, please call 911 immediately. . Non-Emergent Contact Non-Emergency issues call your: Primary Care Provider . . "Provider Documentation" section prepared by Mitchell Bazan. . Core Measure Problem Core Measures: None
[2017-04-21] MEDS ORDERED: DICL1GEL12 EXT (16:17)
--- NOTE | 2017-04-21 17:49 | Discharge Summary ---
Discharge Summary Date of Service Apr 21, 2017. Discharge Summary Admission Date: Apr 17, 2017 at 12:44 Discharge Date: Apr 21, 2017 Discharge Disposition: Rehab Principal Diagnosis: syncope from anemia and weakness/deconditioning Immunizations: Have You Had Influenza Vaccine: Yes Influenza Vaccine Date: May 29, 2011 History of Tetanus Vaccine?: Yes Tetanus Immunization Date: Sep 29, 2005 History of Pneumococcal: No Pneumococcal Date: Mar 10, 2008 History of Hepatitis B Vaccine: No Procedures: DICTATED BY: Berto Fernandez M.D. Procedure Date: 04/21/2017 9:32 AM Procedure: Upper GI endoscopy Indications: Iron deficiency anemia, Cirrhosis with suspected esophageal varices Medicines: Monitored Anesthesia Care Complications: No immediate complications. Estimated blood loss: None. Estimated Blood Loss: Estimated blood loss: none. Procedure: Pre-Anesthesia Assessment: - Prior to the procedure, a History and Physical was performed, and patient medications, allergies and sensitivities were reviewed. The patient's tolerance of previous anesthesia was reviewed. - ASA Grade Assessment: III - A patient with severe systemic disease. After obtaining informed consent, the endoscope was passed under direct vision. Throughout the procedure, the patient's blood pressure, pulse, and oxygen saturations were monitored continuously. The scope was introduced through the mouth, and advanced to the third part of duodenum. The upper GI endoscopy was accomplished with ease. The patient tolerated the procedure well. Findings: Grade II, large (> 5 mm) varices were found in the lower third of the esophagus. The Z-line was regular and was found 35 cm from the incisors. Moderate portal hypertensive gastropathy was found in the gastric antrum. The examined duodenum was normal. Impression: - Grade II and large (> 5 mm) esophageal varices. - Z-line regular, 35 cm from the incisors. - Portal hypertensive gastropathy. - Normal examined duodenum. - No specimens collected. Recommendation: - Start beta sim. - Return patient to hospital [facility] for ongoing care. Berto Fernandez M.D. Berto Fernandez MD GALLBLADDER-ABD LIMITED CLINICAL HISTORY: 66 years-old Female presenting with ?gallstones, eval CBD, nausea. TECHNIQUE: Real-time grayscale and limited color Doppler ultrasound imaging of the abdomen limited to the right upper quadrant was performed. COMPARISON: CT from 04/17/2017. FINDINGS: Pancreas: Largely obscured due to overlying bowel gas. Liver: Hyperechogenic parenchyma with heterogeneous echotexture, likely indicating fibrosis or steatosis. The liver measures 15.7 cm in maximal sagittal dimension. No sonographic evidence of hepatic mass. Main portal vein patent with normal directional flow, although with blunted waveforms. Biliary: No intrahepatic biliary ductal dilatation. Common bile duct measures up to 6 mm in diameter. Gallbladder: Cholelithiasis with borderline wall thickening. The gallbladder is nondistended. Sonographic Jackman's sign negative. Right kidney: Apparent expansion of renal sinus fat, suggesting cortical atrophy. The right kidney is normal in size, measuring 10.4 cm. No hydronephrosis. Ascites: None. IMPRESSION: 1. Hyperechogenic hepatic parenchyma with heterogeneous echotexture, likely indicating fibrosis or steatosis. Blunted portal venous waveforms could indicate elevated portal venous pressures. 2. Cholelithiasis without convincing evidence of cholecystitis or biliary ductal dilatation. Electronically signed by: Maury Lucas M.D. 04/21/2017 7:08 AM KUB CLINICAL HISTORY: Abdominal pain, nausea and constipation. COMPARISON STUDY: CT of the abdomen and pelvis April 17, 2017. FINDINGS: Gallstones are noted. The bowel gas pattern is normal. Extensive vascular calcifications are noted. IMPRESSION: 1. No evidence for a bowel obstruction. 2. Cholelithiasis. Electronically signed by: Donovan Mcdonald M.D. 04/20/2017 2:[address] SCAN OF THE ABDOMEN AND PELVIS WITHOUT CONTRAST CLINICAL HISTORY: diffuse pain. syncope COMPARISON STUDY: 06/04/2016 TECHNIQUE: CT scan of the abdomen and pelvis was performed from the lung bases to the proximal femurs. Images are reviewed in the axial, sagittal, and coronal planes. IV contrast was not administered for this examination. A dose lowering technique was utilized adhering to the principles of ALARA. CT DOSE: FINDINGS: Lower chest: There is mild dependent atelectatic change Liver: The liver has a cirrhotic morphology. There is minor perihepatic fluid. No space-occupying masses are visualized in this noncontrast study. Gallbladder: Cholelithiasis. Minimal pericholecystic fluid, is likely related to cirrhosis. Spleen: The spleen is enlarged measuring 15.4 cm. There are perisplenic and perigastric varices. Pancreas: Unremarkable. Adrenal glands: Unremarkable. Kidneys: There are multiple bilateral cysts and hyperdense cysts. There is a layering calcification within a 41 mm hyperdense left renal cyst. There is right renal cortical scarring. There are nonobstructing right renal calculi. Bowel: There are no transition zones to indicate bowel obstruction. There is no acute diverticulitis. There is no evidence of acute appendicitis. Peritoneum: There is trace ascites. There is no free intraperitoneal air. There are multiple venous collaterals consistent with portal hypertension. Vasculature: The abdominal aorta is normal in course and caliber. Adenopathy: None. Pelvic viscera: The uterus appears surgically absent. Skeletal structures: No destructive osseous lesions are seen. IMPRESSION: 1. Study limited due to the lack of intravenous or oral administered contrast 2. No evidence of bowel obstruction. No evidence of free air 3. No evidence of acute appendicitis. No evidence of acute diverticulitis 4. Cholelithiasis 5. Nonobstructing right renal calculi 6. Cirrhotic liver morphology with evidence of portal hypertension, splenorenal varices, splenomegaly, and omental collaterals. 7. Multiple cysts and hyperdense renal cysts. Electronically signed by: Cristhian Frost M.D. 04/17/2017 11:18 AM Dictated Date/Time: 04/17/2017 11:[address] OF THE CERVICAL SPINE CLINICAL HISTORY: Neck pain status post trauma COMPARISON STUDY: 11/16/2013 CT DOSE: 2054.76 mGy.cm TECHNIQUE: CT scan of the cervical spine was performed from the skull base to the thoracic inlet. Images are reviewed in the axial, sagittal, and coronal planes. IV contrast was not administered for this examination. A dose lowering technique was utilized adhering to the principles of ALARA. FINDINGS: There is biapical emphysema. No pneumothorax is visualized. The prevertebral soft tissues are normal. No fractures or subluxations are visualized. There are multilevel degenerative changes most pronounced the C5-6 and C6-7 levels. There is a stable 12 mm C7 lytic focus. IMPRESSION: 1. No acute fractures or subluxations identified 2. Degenerative changes most pronounced C5-6 and C6-7 levels 3. Stable (since October 2013) 12 mm C7 lytic focus. The three-year stability strongly favors a benign process. Electronically signed by: Cristhian Frost M.D. 04/17/2017 11:23 AM Dictated Date/Time: 04/17/2017 11:19 AM CHEST ONE VIEW PORTABLE CLINICAL HISTORY: Change in mental status COMPARISON STUDY: 06/04/2016 FINDINGS: The cardiac and mediastinal contours remain stable. There are improving bibasal atelectatic changes. There is no lobar consolidation. There is no failure. There are no pleural effusions.[ IMPRESSION: No active disease in the chest. Electronically signed by: Cristhian Frost M.D. 04/17/2017 10:40 AM Dictated Date/Time: 04/17/2017 10:[address] HEAD WITHOUT CONTRAST (CT) CLINICAL HISTORY: Altered mental status. Weakness. Syncope with head trauma. COMPARISON STUDY: 08/26/2016 TECHNIQUE: Axial CT of the brain is performed from the vertex to the skull base. IV contrast was not administered for this examination. A dose lowering technique was utilized adhering to the principles of ALARA. CT DOSE: FINDINGS: No intra or extra-axial mass lesions are visualized. There is no CT evidence of acute cortical infarction. There is no evidence of midline shift. There is no acute hemorrhage. No calvarial fractures are visualized. There are minimal white matter hypodensities likely on a small vessel basis. There is no evidence of pathologic ventricular dilatation. Again evident is a probable empty sella. There is no evidence of acute sinusitis. IMPRESSION: No acute intracranial findings Electronically signed by: Cristhian Frost M.D. 04/17/2017 11:09 AM Dictated Date/Time: 04/17/2017 11:07 AM Test 04/17/17 10:44 04/17/17 10:47 04/17/17 13:16 04/17/17 14:09 Range/Units Nucleated RBC Absolute Count (auto) 0.00 0-0 K/uL Nucleated Red Blood Cells % 0.0 % Peripheral Blood Smear Path Consult Absolute Reticulocyte Count 0.09 0.02-0.10 10^6/uL Percent Reticulocyte Count 3.4 0.5-2.0 % Prothrombin Time 13.2 9.0-12.0 SECONDS Prothromb Time International Ratio 1.2 0.9-1.1 Activated Partial Thromboplast Time 26.9 21.0-31.0 SECONDS Partial Thromboplastin Ratio 1.0 Phosphorus Level 2.2 2.5-4.9 mg/dl Magnesium Level 2.0 1.8-2.4 mg/dl Iron Level 38 35-150 mcg/dl Total Iron Binding Capacity 402 250-450 mcg/dl Transferrin 299 200-360 mg/dl Ferritin 6.2 8.0-388.0 ng/ml Total Creatine Kinase 154 26-192 U/L Creatine Kinase MB 1.7 0.5-3.6 ng/ml Creatine Kinase MB Ratio 1.1 0-3.0 Troponin I < 0.015 0-0.045 ng/ml Pro-B-Type Natriuretic Peptide 93 0-900 pg/ml Lipase 294 73-393 U/L Thyroid Stimulating Hormone (TSH) 3.160 0.300-4.500 uIu/ml Urine Color YELLOW Urine Appearance CLEAR CLEAR Urine pH 6.5 4.5-7.5 Urine Specific [place] 1.014 1.000-1.030 Urine Protein NEG NEG Urine Glucose (UA) NEG NEG Urine Ketones NEG NEG Urine Occult Blood NEG NEG Urine Nitrite NEG NEG Urine Bilirubin NEG NEG Urine Urobilinogen NEG NEG Urine Leukocyte Esterase TRACE NEG Urine WBC (Auto) 1-5 0-5 /hpf Urine RBC (Auto) 0-4 0-4 /hpf Urine Hyaline Casts (Auto) 1-5 0-5 /lpf Urine Epithelial Cells (Auto) 10-20 0-5 /lpf Urine Bacteria (Auto) NEG NEG Transferrin % Saturation 15-50 % Vitamin B12 Level 1204 211-911 pg/mL Folate > 24.00 >5.38 ng/mL Test 04/20/17 05:13 04/20/17 20:30 04/21/17 05:58 04/21/17 11:40 Range/Units Ovalocytes 1+ 25-Hydroxy Vitamin D Total 45.3 30-100 ng/ml Stool Occult Blood NEGATIVE NEGATIVE White Blood Count 2.79 4.8-10.8 K/uL Red Blood Count 2.70 4.2-5.4 M/uL Hemoglobin 8.1 12.0-16.0 g/dL Hematocrit 25.3 37-47 % Mean Corpuscular Volume 93.7 80-100 fL Mean Corpuscular Hemoglobin 30.0 25-34 pg Mean Corpuscular Hemoglobin Concent 32.0 32-36 g/dl Platelet Count 36 130-400 K/uL Mean Platelet Volume 10.4 7.4-10.4 fL Neutrophils (%) (Auto) 53.4 % Lymphocytes (%) (Auto) 31.9 % Monocytes (%) (Auto) 10.8 % Eosinophils (%) (Auto) 3.2 % Basophils (%) (Auto) 0.7 % Neutrophils # (Auto) 1.49 1.4-6.5 K/uL Lymphocytes # (Auto) 0.89 1.2-3.4 K/uL Monocytes # (Auto) 0.30 0.11-0.59 K/uL Eosinophils # (Auto) 0.09 0-0.5 K/uL Basophils # (Auto) 0.02 0-0.2 K/uL RDW Standard Deviation 58.8 36.4-46.3 fL RDW Coefficient of Variation 17.3 11.5-14.5 % Immature Granulocyte % (Auto) 0.0 % Immature Granulocyte # (Auto) 0.00 0.00-0.02 K/uL Anisocytosis PRESENT Sodium Level 147 136-145 mmol/L Potassium Level 4.0 3.5-5.1 mmol/L Chloride Level 118 98-107 mmol/L Carbon Dioxide Level 24 21-32 mmol/L Anion Gap 5.0 3-11 mmol/L Blood Urea Nitrogen 8 7-18 mg/dl Creatinine 0.89 0.60-1.20 mg/dl Est Creatinine Clear Calc Drug Dose 64.9 ml/min Estimated GFR () 77.7 Estimated GFR (Non- 67.1 BUN/Creatinine Ratio 9.0 10-20 Random Glucose 168 70-99 mg/dl Calcium Level 7.3 8.5-10.1 mg/dl Total Bilirubin 0.9 0.2-1 mg/dl Direct Bilirubin 0.3 0-0.2 mg/dl Aspartate Amino Transf (AST/SGOT) 71 15-37 U/L Alanine Aminotransferase (ALT/SGPT) 27 12-78 U/L Alkaline Phosphatase 91 45-117 U/L Total Protein 5.0 6.4-8.2 gm/dl Albumin 2.1 3.4-5.0 gm/dl Bedside Glucose 94 70-90 mg/dl Item Value Date Time Hemoglobin A1c 7.2 % H 03/24/17 1455 Sodium Level 147 mmol/L H 04/21/17 0558 Iron Level 38 mcg/dl 04/17/17 1044 Total Iron Binding Capacity 402 mcg/dl 04/17/17 1044 Transferrin 299 mg/dl 04/17/17 1044 Ferritin 6.2 ng/ml L 04/17/17 1044 Vitamin B12 Level 1204 pg/mL H 04/17/17 1409 25-Hydroxy Vitamin D Total 45.3 ng/ml 04/20/17 0513 Folate > 24.00 ng/mL 04/17/17 1409 Thyroid Stimulating Hormone (TSH) 3.160 uIu/ml 04/17/17 1044 Consultations: heme/onc GI Medication Reconciliation New Medications: Diclofenac Sodium (Topical) (Voltaren 1% Top Gel) 1 % Gel 1 DOSE EXT QID, #100 GM apply to right upper chest wall (around costochondral junction of ribs 3,4) QID Ferrous Gluconate (Iron Supplement) 324 Mg Tab 324 MG PO DAILY, #30 TAB Nadolol (Corgard) 20 Mg Tab 1 TAB PO DAILY for 30 Days, #30 TAB 5 Refills Continued Medications: Aspirin (Aspirin Ec) 81 Mg Tab 81 MG PO QAM Atorvastatin (Lipitor) 40 Mg Tab 40 MG PO HS Carboxymethylcellulose Sodium (Refresh) 1 % Randy 1 DROP OPB QID PRN for DRYNESS Cholecalciferol (Vitamin D3) 2,000 Unit Tab 2000 INTERUNIT PO QAM Donepezil Hydrochloride (Donepezil Hcl) 5 Mg Tab 5 MG PO HS Folic Acid (Folvite) 1 Mg Tab 1 MG PO QAM Gabapentin (Neurontin) 300 Mg Cap 300 MG PO TID Glucosamine-Chondroitin (Glucosamine & Chondroitin 500-400 mg) 1 Cap Cap 1 CAP PO TID Hydrocodone/Acetaminophen 5MG/325MG ([place] 5MG/325MG) Tab 1 TABLET PO Q6H PRN for Pain, #15 (This prescription has been renewed) PRN PAIN Insulin Isophan/Regular (Novolin 70/30) Susp 75 UNITS SC AMPM Magnesium Oxide (Mag-Ox) 400 Mg Tab 400 MG PO QAM Metformin Hcl (Glucophage) 1,000 Mg Tab 1000 MG PO BID Mirtazapine (Remeron) 30 Mg Tab 30 MG PO HS Multiple Vitamins W/ Minerals (Preservision Areds 2) 1 Cap Cap 1 CAP PO BID Pantoprazole (Protonix) 40 Mg Tab 40 MG PO QAM Ropinirole (Requip) 1 Mg Tab 1 MG PO HS PRN for RLS Trazodone Hcl (Trazodone) 50 Mg Tab 50 MG PO HS Discontinued Medications: Clopidogrel Bisulfate (Plavix) 75 Mg Tab 75 MG PO QAM Lisinopril (Zestril) 2.5 Mg Tab 2.5 MG PO DAILY Discharge Exam Physical Exam: General Appearance: no apparent distress Eyes: EOMI ENT: hearing grossly normal Neck: trachea midline Respiratory/Chest: no respiratory distress, no accessory muscle use, + pertinent finding (ost/rib/msk - R sided upper ribs ~3-4 inhaled, high tone/ decreased ROM and palpation directly reproduces pain - balanced ligamentous tension - improved. 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 review of old records suggests that at least as of 2008 highest ferritin was around 230, highest % saturation was around 35%, however -continue to follow CBC, replace iron (PO daily, IV per heme/onc ongoing follow up -- to see Dr Knutson next week) esophageal varices -nadolol as tolerated hypotension//lower end blood pressures -continue careful balance of meds for varices with BP nausea/vomiting -resolved. appears w UGI illness and liver disease to get easily nauseated with prolonged NPO hypoxia (~48hrs ago) -concern on aspiration during vomiting - but has cleared and no longer sob - was covered empirically for aspiration w unasyn for 24hrs but stopped 24hrs ago and no return of sx R upper chest pain -appearing rib related, OMT as above, voltaren gel rib somatic dysfunction -OMT as above HTN -hold Lisinopril DM II -Continue insulin hypocalcemia -vitamin D adequate Dyslipidemia -Continue Lipitor Cirrhosis, Esophageal varices, portal HTN, portal gastropathy -see above Diabetic retinopathy, macular degeneration, blindness in left eye, subconjunctival hematoma right eye, Eye itching -continue eye rinse PRN irritation/itching of the right eye CAD -Chronically on ASA, Plavix- but not clear as to any need for dual antiplatelet (does not have severe small vessel disease or stenting) - hold plavix due to Fe def anemia; however, due to CAD and because varices were not bleeding and no PUD --> continue aspirin (follow) Depression -Remeron as outpatient Folic Acid Deficiency, Vitamin D Deficiency- chronic -Continue supplementation, D adequate at this time DVT proph -pharmacologic was relatively contraindicated until date of discharge for concern on UGI bleeding (which fortunately was not the case) stable for rehab Total Time Spent: Greater than 30 minutes This includes examination of the patient, discharge planning, medication reconciliation, and communication with other providers. Discharge Instructions Please refer to the electronic Patient Visit Report (Discharge Instructions) for additional information. Additional Copies To Rickey Blackburn
[2017-04-22] MEDS ORDERED: FERROUS GLUCONATE 324 MG TAB PO SCH (09:00)
[2017-04-22] MEDS ORDERED: SODIUM FERRIC GLUCONATE IV 125 MG in SODIUM CHLORIDE 0.9% 100ML 100 ML IV SCH (09:00)
[2017-04-22] MEDS ORDERED: NADOLOL 40 MG TAB PO SCH (09:00)
== END 2017-04-21 19:15 | DRG 812 ==
LOC: C.EDB 10:01 → C.MED 12:44 → ENRESERV 12:58
PROVIDERS: ADMIT Hospitalist; ATTEND Family Medicine
PROC: 0DJ08ZZ Inspection of Upper Intestinal Tract, Via Natural or Artificial Opening Endoscopic (ICD-10-PCS; principal; 2017-04-21 09:07)
DX: D50.0 Iron deficiency anemia secondary to blood loss (chronic) (principal); I85.10 Secondary esophageal varices without bleeding; D61.818 Other pancytopenia; J44.9 Chronic obstructive pulmonary disease, unspecified; I10 Essential (primary) hypertension; E78.5 Hyperlipidemia, unspecified; I25.10 Atherosclerotic heart disease of native coronary artery without angina pectoris; E11.319 Type 2 diabetes mellitus with unspecified diabetic retinopathy without macular edema; K22.70 Barrett's esophagus without dysplasia; K31.89 Other diseases of stomach and duodenum; F32.9 Major depressive disorder, single episode, unspecified; E55.9 Vitamin D deficiency, unspecified; R09.02 Hypoxemia; R07.89 Other chest pain; R11.10 Vomiting, unspecified; S09.90XA Unspecified injury of head, initial encounter; Z79.02 Long term (current) use of antithrombotics/antiplatelets; Z79.4 Long term (current) use of insulin; Z79.82 Long term (current) use of aspirin; Z79.84 Long term (current) use of oral hypoglycemic drugs; Z79.899 Other long term (current) drug therapy; Z87.891 Personal history of nicotine dependence; Z83.3 Family history of diabetes mellitus; W19.XXXA Unspecified fall, initial encounter

== ENCOUNTER 2017-04-27 17:45 | Inpatient (IN) | payer OTHER ==
[~2017-04-27] VITALS: Ht 165.1 cm; Wt 82.3 kg
[~2017-04-27 17:45] MED LIST changes: -CLOP1TAB54 PO; +DICL1GEL12 EXT; +FERR324T PO; -LISI-729 PO; +NADO20TA PO
[2017-04-27] MEDS ORDERED: SODIUM CHLORIDE 0.9% 1000ML 1,000 ML IV ONE (17:57)
--- NOTE | 2017-04-27 17:57 | EMERGENCY ROOM VISIT NOTE ---
History Report prepared by Samantha: Sal Wilkinson Under the Supervision of: Dr. Erwin Ulloa M.D. First contact with patient: 17:51 Chief Complaint: ALTERED MENTAL STATUS Stated Complaint: ALTERED MENTAL STATUS History of Present Illness The patient is a 66 year old female who presents to the Emergency Room with worsening altered mental status that started prior to arrival today. Per the nursing staff, the patient is coming from a intermediate, and the intermediate reported that the patient was more altered than usual today. The patient is noted to be demented at baseline. She was also noted to be lethargic at the intermediate. She was given glucose by the staff there, but her blood sugar was not checked. Her blood sugar here was 173. History severely limited given patient's altered mental status. Source of History: nursing staff History Limited By: AMS Onset: Prior to arrival today Position: other (global - altered mental status) Timing: worsening Associated Symptoms: + fatigue Note: No other associated symptoms noted. Review of Systems ROS limited secondary to patient's altered mental status. Past Medical & Surgical Medical Problems: (1) Altered mental status (2) cardiac history (3) COPD (chronic obstructive pulmonary disease) (4) Diabetes (5) HTN (hypertension) (6) Pneumonia Family History CHF (congestive heart failure) Diabetes mellitus FHx: stroke Heart disease Social History Smoking Status: Former Smoker Alcohol Use: none Drug Use: none Marital Status: Housing Status: other Occupation Status: retired Current/Historical Medications Scheduled Aspirin (Aspirin Ec), 81 MG PO QAM Atorvastatin (Lipitor), 40 MG PO HS Cholecalciferol (Vitamin D3), 2,000 INTERUNIT PO QAM Clopidogrel Bisulfate (Clopidogrel), 75 MG PO DAILY Diclofenac Sodium (Topical) (Voltaren 1% Top Gel), 1 DOSE EXT QID Docusate Sodium (Docusate Sodium), 100 MG PO BID Donepezil Hydrochloride (Donepezil Hcl), 5 MG PO HS Ferrous Gluconate (Iron Supplement), 324 MG PO DAILY Folic Acid (Folvite), 1 MG PO QAM Gabapentin (Neurontin), 300 MG PO TID Insulin Isophan/Regular (Novolin 70/30), 75 UNITS SC AMPM Lisinopril (Lisinopril), 2.5 MG PO DAILY Magnesium Oxide (Mag-Ox), 400 MG PO QAM Metformin Hcl (Glucophage), 1,000 MG PO BID Mirtazapine (Remeron), 30 MG PO HS Multiple Vitamins W/ Minerals (Preservision Areds 2), 1 CAP PO BID Nadolol (Corgard), 1 TAB PO DAILY Pantoprazole (Protonix), 40 MG PO QAM Ropinirole Hydrochloride (Requip), 0.5 MG PO HS Trazodone Hcl (Trazodone), 50 MG PO HS Scheduled PRN Carboxymethylcellulose Sodium (Refresh), 1 DROP OPB QID PRN for DRYNESS Ropinirole (Requip), 1 MG PO HS PRN for RLS Allergies Coded Allergies: Methyl Salicylate (Verified Allergy, Unknown, RASH, 04/17/17) Nickel (Verified Allergy, Unknown, RASH, 04/17/17) Zinc (Verified Allergy, Unknown, RASH, 04/17/17) Diphenhydramine (Verified Adverse Reaction, Intermediate, BURNING EYES, DIZZY,BLISTERS, 04/17/17) Physical Exam Vital Signs Date Time Temp Pulse Resp B/P (MAP) Pulse Ox O2 Delivery O2 Flow Rate FiO2 04/27/17 20:20 52 20 120/55 97 Room Air 04/27/17 19:05 59 04/27/17 18:39 97 Room Air 04/27/17 18:39 97 Room Air 04/27/17 18:07 36.9 68 20 139/50 96 Room Air Physical Exam GENERAL: Awake, alert, chronically ill-appearing, in no distress HENT: Normocephalic, atraumatic. Dry mucous membranes. EYES: Normal conjunctiva. Sclera non-icteric. NECK: Supple. No nuchal rigidity. FROM. No JVD. RESPIRATORY: Diminished breath sounds at bases. CARDIAC: Regular rate, normal rhythm. Extremities warm and well perfused. Pulses equal. ABDOMEN: Soft, non-distended. No tenderness to palpation. No rebound or guarding. No masses. RECTAL: Deferred. MUSCULOSKELETAL: Chest examination reveals no tenderness. The back is symmetrical on inspection without obvious abnormality. There is no CVA tenderness to palpation. No joint edema. LOWER EXTREMITIES: Calves are equal size bilaterally and non-tender. No edema. No discoloration. NEURO: Exhibits only 2/5 strength in bilateral lower extremities, but appears to have painful response. Limited verbal only answering yes. GCS of 13. SKIN: No rash or jaundice noted. Medical Decision & Procedures ER Provider Diagnostic Interpretation: Radiology results as stated below per my review and radiologist interpretation: CT HEAD WITHOUT CONTRAST (CT) CLINICAL HISTORY: Altered mental status COMPARISON STUDY: 04/17/2017 TECHNIQUE: Axial CT of the brain is performed from the vertex to the skull base. IV contrast was not administered for this examination. A dose lowering technique was utilized adhering to the principles of ALARA. CT DOSE: 638.56 mGycm FINDINGS: No intra or extra-axial mass lesions are visualized. There is no CT evidence of acute cortical infarction. There is no evidence of midline shift. There is no acute hemorrhage. No calvarial fractures are visualized. There are minimal white matter hypodensities likely on a small vessel basis. There is no evidence of pathologic ventricular dilatation. Findings again suggestive empty sella. There is no evidence of acute sinusitis IMPRESSION: No acute intracranial findings Electronically signed by: Cristhian Frost M.D. 04/27/2017 7:30 PM Dictated Date/Time: 04/27/2017 7:28 PM CHEST ONE VIEW PORTABLE CLINICAL HISTORY: 66 years-old Female presenting with Evaluate Fever/Sepsis. TECHNIQUE: Portable upright AP view of the chest was obtained. COMPARISON: 04/17/2017. FINDINGS: Atherosclerosis of aortic arch. Cardiac silhouette normal in size. Minimal left basilar opacity, stable to slightly increased from prior. No new focal infiltrate. No large effusion or pneumothorax. Postsurgical changes of the left humeral head and distal left clavicle. Upper abdomen normal. IMPRESSION: 1. Minimal left basilar opacity, most likely atelectasis. Aspiration or infection are less likely. Electronically signed by: Maury Lucas M.D. 04/27/2017 7:00 PM Dictated Date/Time: 04/27/2017 6:59 PM Laboratory Results 04/27/17 18:30 Red Blood Count 3.78, Mean Corpuscular Volume 94.4, Mean Corpuscular Hemoglobin 30.7, Mean Corpuscular Hemoglobin Concent 32.5, Mean Platelet Volume 10.5, Neutrophils (%) (Auto) 56.1, Lymphocytes (%) (Auto) 33.6, Monocytes (%) (Auto) 6.8, Eosinophils (%) (Auto) 2.8, Basophils (%) (Auto) 0.6, Neutrophils # (Auto) 3.78, Lymphocytes # (Auto) 2.27, Monocytes # (Auto) 0.46, Eosinophils # (Auto) 0.19, Basophils # (Auto) 0.04 04/27/17 18:30 Test 04/27/17 18:30 04/27/17 18:53 White Blood Count 6.75 K/uL (4.8-10.8) Red Blood Count 3.78 M/uL (4.2-5.4) Hemoglobin 11.6 g/dL (12.0-16.0) Hematocrit 35.7 % (37-47) Mean Corpuscular Volume 94.4 fL (80-100) Mean Corpuscular Hemoglobin 30.7 pg (25-34) Mean Corpuscular Hemoglobin Concent 32.5 g/dl (32-36) Platelet Count 77 K/uL (130-400) Mean Platelet Volume 10.5 fL (7.4-10.4) Neutrophils (%) (Auto) 56.1 % Lymphocytes (%) (Auto) 33.6 % Monocytes (%) (Auto) 6.8 % Eosinophils (%) (Auto) 2.8 % Basophils (%) (Auto) 0.6 % Neutrophils # (Auto) 3.78 K/uL (1.4-6.5) Lymphocytes # (Auto) 2.27 K/uL (1.2-3.4) Monocytes # (Auto) 0.46 K/uL (0.11-0.59) Eosinophils # (Auto) 0.19 K/uL (0-0.5) Basophils # (Auto) 0.04 K/uL (0-0.2) RDW Standard Deviation 60.3 fL (36.4-46.3) RDW Coefficient of Variation 17.9 % (11.5-14.5) Immature Granulocyte % (Auto) 0.1 % Immature Granulocyte # (Auto) 0.01 K/uL (0.00-0.02) Polychromasia 1+ Anisocytosis PRESENT Ovalocytes 1+ Urine Color YELLOW Urine Appearance CLEAR (CLEAR) Urine pH 8.5 (4.5-7.5) Urine Specific [place] 1.011 (1.000-1.030) Urine Protein NEG (NEG) Urine Glucose (UA) NEG (NEG) Urine Ketones NEG (NEG) Urine Occult Blood NEG (NEG) Urine Nitrite NEG (NEG) Urine Bilirubin NEG (NEG) Urine Urobilinogen NEG (NEG) Urine Leukocyte Esterase NEG (NEG) Urine WBC (Auto) 1-5 /hpf (0-5) Urine RBC (Auto) 0-4 /hpf (0-4) Urine Hyaline Casts (Auto) 1-5 /lpf (0-5) Urine Epithelial Cells (Auto) 0-5 /lpf (0-5) Urine Bacteria (Auto) NEG (NEG) Anion Gap 11.0 mmol/L (3-11) Est Creatinine Clear Calc Drug Dose 56.9 ml/min Estimated GFR () 67.5 Estimated GFR (Non- 58.3 BUN/Creatinine Ratio 10.0 (10-20) Calcium Level 9.2 mg/dl (8.5-10.1) Total Bilirubin 1.4 mg/dl (0.2-1) Direct Bilirubin 0.5 mg/dl (0-0.2) Aspartate Amino Transf (AST/SGOT) 67 U/L (15-37) Alanine Aminotransferase (ALT/SGPT) 32 U/L (12-78) Alkaline Phosphatase 131 U/L (45-117) Troponin I < 0.015 ng/ml (0-0.045) Total Protein 6.8 gm/dl (6.4-8.2) Albumin 2.6 gm/dl (3.4-5.0) Lipase 254 U/L (73-393) Lactic Acid Level 2.1 mmol/L (0.4-2.0) Laboratory results reviewed by me Medications Administered Medications (Trade) Dose Ordered Sig/Kole Route Start Time Stop Time Status Last Admin Dose Admin Sodium Chloride 1,000 ml @ 2,000 mls/hr Q30M ONCE IV 04/27/17 17:57 04/27/17 18:26 DC 04/27/17 20:20 2,000 MLS/HR Sodium Chloride 1,000 ml @ 999 mls/hr Q1H1M STAT IV 04/27/17 19:39 04/27/17 20:39 DC 04/27/17 19:39 999 MLS/HR ECG Indication: altered mental status Rate (beats per minute): 52 Rhythm: sinus bradycardia Findings: no acute ischemic change, other (normal axis) ED Course 1750: The patient was evaluated in room B2. A limited history and physical exam was performed. 1757: Ordered NSS 1000 ml @ 2000 mls/hr IV. 1938: Ordered NSS 1000 ml @ 999 mls/hr IV. 2009: Upon reexamination, the patient was resting. The patient will be evaluated for further management. 2019: I discussed the patient with Dr. Thanh ABRAHAM form coverer - he will evaluate the patient for further treatment. Medical Decision I reviewed the patient's past medical history, medications, and the nursing notes as described above. Differential diagnosis includes but is not limited to: pneumonia, UTI, dehydration, electrolyte abnormalities, intracranial hemorrhage. The patient is a 66-year-old woman with a past medical history of dementia on donepezil presents from her [facility] facility for the question of change in mental status or history of present illness. On arrival the patient is minimally verbal answering only yes. She is afebrile with stable vital signs. She appears clinically dry. Will follow some simple commands such as grasp and release of hand. However otherwise minimally interactive. GCS of 13. Will wiggle lower extremities however without any significant movements. Sensation intact to pain throughout. Labs notable for hypernatremia with sodium of 151 and estimated free water deficit of 2.8L. Lactate also elevated to 2.1 and LFTs slightly elevated from recent. However in the setting of the patient's dehydration with negative UA and unremarkable chest x-ray, infectious process unlikely at this time. CT head negative. Will admit patient for further hydration evaluation/management. Admitted to hospital medicine. Head Trauma GCS Score: 13 Medication Reconcilliation Current Medication List: was personally reviewed by me Blood Pressure Screening Patient's blood pressure: Elevated blood pressure Blood pressure disposition: Elevated BP felt to be situational Consults Time Called: 2014 Consulting Physician: Dr. Thanh ABRAHAM form coverer Returned Call: 2019 (in person) I discussed the patient with Dr. Thanh ABRAHAM form coverer - he will evaluate the patient for further treatment. Impression Primary Impression: Hypernatremia Additional Impression: Dehydration Scribe Attestation The scribe's documentation has been prepared under my direction and personally reviewed by me in its entirety. I confirm that the note above accurately reflects all work, treatment, procedures, and medical decision making performed by me. Departure Information Dispostion Being Evaluated By Hospitalist Referrals Maury Bond M.D. (PCP) Patient Instructions [facility] Problem Qualifiers
[2017-04-27 18:50] LABS: HEMATOCRIT 35.7 % (37-47); MEAN CELL VOLUME 94.4 fL (80-100); MEAN CORPUSCULAR HEMOGLOBIN 30.7 pg (25-34); MEAN CORPUSCULAR HGB CONC 32.5 g/dl (32-36); RED BLOOD COUNT 3.78 M/uL (4.2-5.4); WHITE BLOOD COUNT 6.75 K/uL (4.8-10.8)
[2017-04-27 18:57] LABS: URINE APPEARANCE CLEAR (CLEAR); URINE BILIRUBIN NEG (NEG); URINE COLOR YELLOW; URINE EPITHELIAL CELL AUTO 0-5 /lpf (0-5); URINE NITRITE NEG (NEG); URINE PH 8.5 (4.5-7.5); URINE SPECIFIC GRAVITY 1.011 (1.000-1.030); UROBILINOGEN NEG (NEG); ZZURINE CULT IF INDIC CATH NO
[2017-04-27] MEDS ORDERED: ROPI0.5T PO (19:01)
[2017-04-27] MEDS ORDERED: LSN25 PO (19:01)
[2017-04-27] MEDS ORDERED: PLV75 PO (19:01)
[2017-04-27] MEDS ORDERED: DOCU100C31 PO (19:01)
--- NOTE | 2017-04-27 19:01 | DIAGNOSTIC IMAGING REPORT ---
CHEST ONE VIEW PORTABLE CLINICAL HISTORY: 66 years-old Female presenting with Evaluate Fever/Sepsis. TECHNIQUE: Portable upright AP view of the chest was obtained. COMPARISON: 04/17/2017. FINDINGS: Atherosclerosis of aortic arch. Cardiac silhouette normal in size. Minimal left basilar opacity, stable to slightly increased from prior. No new focal infiltrate. No large effusion or pneumothorax. Postsurgical changes of the left humeral head and distal left clavicle. Upper abdomen normal. IMPRESSION: 1. Minimal left basilar opacity, most likely atelectasis. Aspiration or infection are less likely. Electronically signed by: Maury Lucas M.D. 04/27/2017 7:00 PM Dictated Date/Time: 04/27/2017 6:59 PM
[2017-04-27 19:03] LABS: MANUAL MICROSCOPIC REQUIRED? NO; REVIEW REQ? NO
[2017-04-27 19:18] LABS: ALT/SGPT 32 U/L (12-78); BLOOD UREA NITROGEN 10 mg/dl (7-18); CALCIUM 9.2 mg/dl (8.5-10.1); CARBON DIOXIDE 22 mmol/L (21-32); CHLORIDE 118 mmol/L (98-107); GLUCOSE 130 mg/dl (70-99); POTASSIUM 3.6 mmol/L (3.5-5.1); SODIUM 151 mmol/L (136-145)
[2017-04-27 19:23] LABS: ALKALINE PHOSPHATASE 131 U/L (45-117); AST/SGOT 67 U/L (15-37)
--- NOTE | 2017-04-27 19:31 | DIAGNOSTIC IMAGING REPORT ---
CT HEAD WITHOUT CONTRAST (CT) CLINICAL HISTORY: Altered mental status COMPARISON STUDY: 04/17/2017 TECHNIQUE: Axial CT of the brain is performed from the vertex to the skull base. IV contrast was not administered for this examination. A dose lowering technique was utilized adhering to the principles of ALARA. CT DOSE: 638.56 mGycm FINDINGS: No intra or extra-axial mass lesions are visualized. There is no CT evidence of acute cortical infarction. There is no evidence of midline shift. There is no acute hemorrhage. No calvarial fractures are visualized. There are minimal white matter hypodensities likely on a small vessel basis. There is no evidence of pathologic ventricular dilatation. Findings again suggestive empty sella. There is no evidence of acute sinusitis IMPRESSION: No acute intracranial findings Electronically signed by: Cristhian Frost M.D. 04/27/2017 7:30 PM Dictated Date/Time: 04/27/2017 7:28 PM
[2017-04-27] MEDS ORDERED: SODIUM CHLORIDE 0.9% 1000ML 1,000 ML IV STA (19:39)
[2017-04-27 19:56] LABS: MEAN PLATELET VOLUME 10.5 fL (7.4-10.4); PLATELET COUNT 77 K/uL (130-400)
[2017-04-27 21:03] LABS: ANISOCYTOSIS PRESENT; BASO % 0.6 %; BASO ABS # 0.04 K/uL (0-0.2); COMPLETE YES; EOS % 2.8 %; IG% 0.1 %; LYMPH % 33.6 %; LYMPH ABS # 2.27 K/uL (1.2-3.4); MONO % 6.8 %; NEUT % 56.1 %; OVALOCYTES 1+; POLYCHROMASIA 1+
[2017-04-27] MEDS ORDERED: ACETAMINOPHEN 325 MG TAB PO PRN (21:30)
[2017-04-27] MEDS ORDERED: ALUMINUM/MAGNESIUM/SIMETH (MAALOX MAX) 30 ML UDC PO PRN (21:30)
[2017-04-27] MEDS ORDERED: ONDANSETRON INJ 2 MG/ML 2 ML VIAL IV PRN (21:30)
[2017-04-27] MEDS ORDERED: POLYETHYLENE (MIRALAX) 17 GM PACK PO PRN (21:30)
[2017-04-27] MEDS ORDERED: MAGNESIUM HYDROXIDE SUSP 30 ML UDC PO PRN (21:30)
--- NOTE | 2017-04-27 22:07 | History and Physical ---
History & Physical Date & Time of Service: Apr 27, 2017 at 21:20 Chief Complaint: Altered Mental Status Primary Care Physician: aMury Bond M.D. History of Present Illness Source: patient 66 y/o F Hx DM, Cirrhosis, esophageal varices, pancytopenia, dementia. Pt was recently admitted for worsening anemia and transfused 2 U PRBCS 04/21 prior to undergoing and EGD which revealed varices due to portal HTN. She had initially presented with frequent falls only, however, inital CBC was abnormal leading to the above diagnosis. She was eventually discharged to a rehab facility due to ongoing gait dysfunction. She was sent to the ER today as staff reported that she was lethargic and confused. The pt is somnolent at the time of arrival in the ER and cannot provide any additional information or adequately follow commands. She does not exhibit a fever or additional signs of infection. Initial labs and exam are consistent with marked dehydration. Past Medical/Surgical History Medical Problems: 1) Pancytopenia - likely related to cirrhosis 2) COPD - not currently treated 3) Dementia 4) DM 2 5) Cirrhosis - possibly due to VELEZ 6) Portal hypertension and esophageal varices Family History CHF (congestive heart failure) Diabetes mellitus FHx: stroke Heart disease Social History Son reports she was a heavy smoker and may have consumed excessive alcohol at one point - she quit both several years ago. Smoking Status: Former Smoker Drug Use: none Marital Status: Housing status: lives with family Occupational Status: retired Immunizations History of Influenza Vaccine: Yes Influenza Vaccine Date: May 29, 2011 History of Tetanus Vaccine?: Yes Tetanus Immunization Date: Sep 29, 2005 History of Pneumococcal: No Pneumococcal Date: Mar 10, 2008 History of Hepatitis B Vaccine: No Multi-Drug Resistant Organisms History of MDRO: No Allergies Coded Allergies: Methyl Salicylate (Verified Allergy, Unknown, RASH, 04/17/17) Nickel (Verified Allergy, Unknown, RASH, 04/17/17) Zinc (Verified Allergy, Unknown, RASH, 04/17/17) Diphenhydramine (Verified Adverse Reaction, Intermediate, BURNING EYES, DIZZY,BLISTERS, 04/17/17) Home Medications Scheduled Aspirin (Aspirin Ec), 81 MG PO QAM Atorvastatin (Lipitor), 40 MG PO HS Cholecalciferol (Vitamin D3), 2,000 INTERUNIT PO QAM Clopidogrel Bisulfate (Clopidogrel), 75 MG PO DAILY Diclofenac Sodium (Topical) (Voltaren 1% Top Gel), 1 DOSE EXT QID Docusate Sodium (Docusate Sodium), 100 MG PO BID Donepezil Hydrochloride (Donepezil Hcl), 5 MG PO HS Ferrous Gluconate (Iron Supplement), 324 MG PO DAILY Folic Acid (Folvite), 1 MG PO QAM Gabapentin (Neurontin), 300 MG PO TID Insulin Isophan/Regular (Novolin 70/30), 75 UNITS SC AMPM Lisinopril (Lisinopril), 2.5 MG PO DAILY Magnesium Oxide (Mag-Ox), 400 MG PO QAM Metformin Hcl (Glucophage), 1,000 MG PO BID Mirtazapine (Remeron), 30 MG PO HS Multiple Vitamins W/ Minerals (Preservision Areds 2), 1 CAP PO BID Nadolol (Corgard), 1 TAB PO DAILY Pantoprazole (Protonix), 40 MG PO QAM Ropinirole Hydrochloride (Requip), 0.5 MG PO HS Trazodone Hcl (Trazodone), 50 MG PO HS Scheduled PRN Carboxymethylcellulose Sodium (Refresh), 1 DROP OPB QID PRN for DRYNESS Ropinirole (Requip), 1 MG PO HS PRN for RLS Review of Systems Cannot obtain - reported somnolent / lethargic at [place] Physical Exam Vital Signs Date Time Temp Pulse Resp B/P (MAP) Pulse Ox O2 Delivery O2 Flow Rate FiO2 04/27/17 20:20 52 20 120/55 97 Room Air 04/27/17 19:05 59 04/27/17 18:39 97 Room Air 04/27/17 18:39 97 Room Air 04/27/17 18:07 36.9 68 20 139/50 96 Room Air General Appearance: + pertinent finding (Somnolent, overweight, elderly female in no distress - she can follow some simple commands but tends to fall asleep) Eyes: normal inspection, PERRL ENT: normal ENT inspection, pharynx normal Neck: supple, no JVD Respiratory/Chest: chest non-tender, lungs clear, normal breath sounds Cardiovascular: regular rate, rhythm, no edema, no gallop, no JVD, no murmur, normal peripheral pulses Abdomen/GI: normal bowel sounds, non tender, soft, + pertinent finding (did not react to deep palpation ) Back: normal inspection, no CVA tenderness Extremities/Musculoskelatal: normal inspection, no calf tenderness, normal capillary refill, no pedal edema, normal range of motion Neurologic/Psych: + pertinent finding (Pt is somnolent - moves all extrems - pupils equal - cannot comply with exam) Skin: normal color, warm/dry, + pallor Diagnostics Laboratory Results Results Past 24 Hours Test 04/27/17 18:30 04/27/17 18:53 Range/Units White Blood Count 6.75 4.8-10.8 K/uL Red Blood Count 3.78 4.2-5.4 M/uL Hemoglobin 11.6 12.0-16.0 g/dL Hematocrit 35.7 37-47 % Mean Corpuscular Volume 94.4 80-100 fL Mean Corpuscular Hemoglobin 30.7 25-34 pg Mean Corpuscular Hemoglobin Concent 32.5 32-36 g/dl Platelet Count 77 130-400 K/uL Mean Platelet Volume 10.5 7.4-10.4 fL Neutrophils (%) (Auto) 56.1 % Lymphocytes (%) (Auto) 33.6 % Monocytes (%) (Auto) 6.8 % Eosinophils (%) (Auto) 2.8 % Basophils (%) (Auto) 0.6 % Neutrophils # (Auto) 3.78 1.4-6.5 K/uL Lymphocytes # (Auto) 2.27 1.2-3.4 K/uL Monocytes # (Auto) 0.46 0.11-0.59 K/uL Eosinophils # (Auto) 0.19 0-0.5 K/uL Basophils # (Auto) 0.04 0-0.2 K/uL RDW Standard Deviation 60.3 36.4-46.3 fL RDW Coefficient of Variation 17.9 11.5-14.5 % Immature Granulocyte % (Auto) 0.1 % Immature Granulocyte # (Auto) 0.01 0.00-0.02 K/uL Polychromasia 1+ Anisocytosis PRESENT Ovalocytes 1+ Urine Color YELLOW Urine Appearance CLEAR CLEAR Urine pH 8.5 4.5-7.5 Urine Specific [place] 1.011 1.000-1.030 Urine Protein NEG NEG Urine Glucose (UA) NEG NEG Urine Ketones NEG NEG Urine Occult Blood NEG NEG Urine Nitrite NEG NEG Urine Bilirubin NEG NEG Urine Urobilinogen NEG NEG Urine Leukocyte Esterase NEG NEG Urine WBC (Auto) 1-5 0-5 /hpf Urine RBC (Auto) 0-4 0-4 /hpf Urine Hyaline Casts (Auto) 1-5 0-5 /lpf Urine Epithelial Cells (Auto) 0-5 0-5 /lpf Urine Bacteria (Auto) NEG NEG Sodium Level 151 136-145 mmol/L Potassium Level 3.6 3.5-5.1 mmol/L Chloride Level 118 98-107 mmol/L Carbon Dioxide Level 22 21-32 mmol/L Anion Gap 11.0 3-11 mmol/L Blood Urea Nitrogen 10 7-18 mg/dl Creatinine 1.00 0.60-1.20 mg/dl Est Creatinine Clear Calc Drug Dose 56.9 ml/min Estimated GFR () 67.5 Estimated GFR (Non- 58.3 BUN/Creatinine Ratio 10.0 10-20 Random Glucose 130 70-99 mg/dl Calcium Level 9.2 8.5-10.1 mg/dl Total Bilirubin 1.4 0.2-1 mg/dl Direct Bilirubin 0.5 0-0.2 mg/dl Aspartate Amino Transf (AST/SGOT) 67 15-37 U/L Alanine Aminotransferase (ALT/SGPT) 32 12-78 U/L Alkaline Phosphatase 131 45-117 U/L Troponin I < 0.015 0-0.045 ng/ml Total Protein 6.8 6.4-8.2 gm/dl Albumin 2.6 3.4-5.0 gm/dl Lipase 254 73-393 U/L Lactic Acid Level 2.1 0.4-2.0 mmol/L Diagnostic Radiology CXR: Minimal left basilar opacity, most likely atelectasis. Aspiration or infection are less likely. CT head: No acute findings EKG Sinus vanesa - anterior T wave inversions Impression Assessment and Plan 66 y/o F Hx DM, Cirrhosis, esophageal varices, pancytopenia, dementia. Pt was recently admitted for worsening anemia and transfused 2 U PRBC 04/21 prior to undergoing and EGD which revealed varices due to portal HTN. She had initially presented with frequent falls only, however, initial CBC was abnormal leading to the above diagnosis. She was eventually discharged to a rehab facility due to ongoing gait dysfunction. She was sent to the ER today as staff reported that she was lethargic and confused. The pt is somnolent at the time of arrival in the ER and cannot provide any additional information or adequately follow commands. She does not exhibit a fever or additional signs of infection. Initial labs and exam are consistent with marked dehydration. 1) AMS - etiology not clear - she is dehydrated on admission with hypernatremia , which is not however, severe. As she has a likely diagnosis of cirrhosis, we will check an ammonia level - TSH was recently normal. We will aggressively hydrate her overnight, hold any psychoactive medications and consider an MRI AM if her mentation does not improve. There is no clear evidence of infection - her WBC count is WNL where as she is normally neutropenic. Her UA is neg, she does not have abdominal tenderness and a recent CT abdomen did not reveal significant ascites. The pt does not display nuchal rigidity, photophobia or other signs of meningitis. 2) Pancytopenia - recent PRBC transfusion - this has improved from recent and will be trended. 3) Cirrhosis - as mentioned an ammonia level is pending - she can f/u with GI as an outpt otherwise. 4) Bradycardia is apparent on her EKG in addition to anterior inversions which may be rate related - we will hold Nadolol AM and this may require an adjustment prior to DC. 5) The pt's CXR is equivocal - although she does not have clinical evidence of pneumonia, she may be prone to aspiration and a CT chest should be considered for definitive rule-out if she does not improve. 6) DM - placed on SS Full code - SCDs pending AM labs Total time for this admit including review of labs, meds, imaging, recent records - discussion with pt's son, ER attending 45 min Level of Care Telemetry Resuscitation Status FULL RESUSCITATION VTE Prophylaxis Given or contraindicated: SCD's
[2017-04-27 22:17] VITALS: O2SAT 98; BMI 29.2
[2017-04-27] MEDS ORDERED: GLUCAGON FOR INJ 1 MG VIAL SQ PRN (23:00)
[2017-04-27] MEDS ORDERED: GLUCOSE 40% GEL 15 GM TUBE PO PRN (23:00)
[2017-04-27] MEDS: INSULIN ASPART 100 UNITS/ML 3 ML PEN SC SCH (23:00)
[2017-04-27] MEDS ORDERED: DEXTROSE 50% 50 ML SYR IV PRN (23:00)
[2017-04-27] MEDS ORDERED: GLUCOSE 10 TABS/TUBE PO PRN (23:00)
[2017-04-27 23:14] VITALS: BP 148/69; PULSE 49; TEMP 36.4; O2SAT 96
[2017-04-28] VITALS (8 sets, daily range): BP systolic 118–157; BP diastolic 52–75; PULSE 56–70; TEMP 36.6–37; O2SAT 94–97
[2017-04-28] MEDS: NSS + 20MEQ KCL 1000ML 1,000 ML IV SCH ×2 (00:29→07:54)
[2017-04-28 05:57] LABS: HEMATOCRIT 31.5 % (37-47); MEAN CELL VOLUME 94.3 fL (80-100); MEAN CORPUSCULAR HEMOGLOBIN 30.5 pg (25-34); MEAN CORPUSCULAR HGB CONC 32.4 g/dl (32-36); RED BLOOD COUNT 3.34 M/uL (4.2-5.4); WHITE BLOOD COUNT 4.99 K/uL (4.8-10.8)
[2017-04-28 06:01] LABS: MEAN PLATELET VOLUME 9.8 fL (7.4-10.4); PLATELET COUNT 54 K/uL (130-400)
[2017-04-28 06:07] LABS: CALCIUM 8.1 mg/dl (8.5-10.1); CREATININE 0.74 mg/dl (0.60-1.20); MAGNESIUM 1.7 mg/dl (1.8-2.4); PHOSPHORUS 3.3 mg/dl (2.5-4.9); POTASSIUM 3.9 mmol/L (3.5-5.1)
[2017-04-28] MEDS: INSULIN ASPART 100 UNITS/ML 3 ML PEN SC SCH ×4 (07:00→20:32)
[2017-04-28] MEDS: DOCUSATE SODIUM 100 MG CAP PO SCH ×3 (07:54→20:28)
[2017-04-28] MEDS: PANTOprazole SOD 40 MG TAB PO SCH (07:54)
[2017-04-28] MEDS: CLOPIDOGREL BISULFATE 75 MG TAB PO SCH (07:54)
[2017-04-28] MEDS: ASPIRIN 81 MG ECTAB PO SCH (07:54)
[2017-04-28] MEDS ORDERED: INFLUENZA VACCINE HIGH DOSE 65+ 0.5 ML SYR IM. ONE (08:00)
[2017-04-28] MEDS ORDERED: PNEUMOCOCCAL POLYSACCHARIDES 25 MCG/0.5 ML VIAL/SYR IM. ONE (08:00)
[2017-04-28] MEDS ORDERED: PNEUMOCOCCAL ADMINISTRATION CHARGE ONE (08:00)
[2017-04-28] MEDS ORDERED: INFLUENZA ADMINISTRATION CHARGE ONE (08:00)
--- NOTE | 2017-04-28 09:16 | Clinical Documentation Query ---
ANTHONY Beatty : CLINICAL DOCUMENTATION QUERY Patient is a 66 year old female admitted for evaluation of lethargy and confusion. Documentation includes "AMS" in the setting of hypernatremia and dehydration. As appropriate, consider documentation as suggested below in order to capture a clinical diagnosis associated with the symptom of AMS. In your clinical opinion is this patient being managed for: ( x ) Metabolic encephalopathy secondary to hypernatremia AND HEPATIC ENCEPHALOPATHY ( ) Not Agree ( ) Other explanation of clinical findings (Please Explain) ( ) Unable to determine (Please Define) ( ) Need to Discuss The medical record reflects the following clinical findings, treatment, and risk factors. Clinical Indicators: AMS in the setting of dehydration and hypernatremia Treatment: Isotonic saline, chemistries, CT head Risk Factors: Age, dementia, poor intake Please clarify and document your clinical opinion in the progress notes and discharge summary. Terms such as "probable", "suspected", "likely", "questionable", "possible", or "still to be ruled out" are acceptable. IF IN AGREEMENT, YOU MUST DOCUMENT ABOVE DIAGNOSTIC STATEMENT IN DAILY PROGRESS NOTES AND DISCHARGE SUMMARY. This document is not part of the patient's record. Thank You, Eitan Gomez, RN [phone]
[2017-04-28] MEDS: LACTULOSE SYRUP 30 GM/45 ML UDP PO SCH ×2 (10:03→20:57)
[2017-04-28] MEDS: MAGNESIUM SULFATE 1GM / D5W 1 GM in PREMIXED IN D5W 100 ML IV SCH ×2 (10:04→10:58)
[2017-04-28] MEDS ORDERED: NURSING VERBAL MED ORDER ONE (10:15)
[2017-04-28] MEDS: D5W AND 1/2NSS 1,000 ML IV SCH ×2 (11:09→19:31)
--- NOTE | 2017-04-28 12:14 | DIAGNOSTIC IMAGING REPORT ---
CHEST ONE VIEW PORTABLE CLINICAL HISTORY: possible pneumonia vs atelectasis ABNORMAL CHEST X-RAY COMPARISON STUDY: 04/27/2017 FINDINGS: The cardiac and mediastinal contours remain stable[. There is mild interstitial thickening. Increased left basal markings remain similar to the prior study and are likely atelectatic. There is no lobar consolidation. There is no significant pleural fluid. IMPRESSION: 1. Stable interstitial thickening 2. Left basilar opacities, likely atelectatic 3. No evidence of lobar consolidation Electronically signed by: Cristhian Frost M.D. 04/28/2017 12:12 PM Dictated Date/Time: 04/28/2017 11:59 AM
--- NOTE | 2017-04-28 14:51 | Hospitalist Progress Note ---
Hospitalist Progress Note Date of Service Apr 28, 2017. (Adeline Matute CRNP) Subjective Pt evaluation today including: conversation w/ patient, physical exam, chart review, lab review, review of studies, review of inpatient medication list Voiding: no voiding problems Ms. Rangel is laying in bed in no apparent distress. She denies pain or discomfort but is otherwise a poor historian. Respiratory: No cough, No shortness of breath Cardiovascular: No chest pain Abdomen: No pain, No nausea, No vomiting All Other Systems: Reviewed and Negative (Adeline Matute CRNP) Medications Medications (Trade) Dose Ordered Sig/Kole Route Start Time Stop Time Status Last Admin Dose Admin Sodium Chloride 1,000 ml @ 2,000 mls/hr Q30M ONCE IV 04/27/17 17:57 04/27/17 18:26 DC 04/27/17 20:20 2,000 MLS/HR Sodium Chloride 1,000 ml @ 999 mls/hr Q1H1M STAT IV 04/27/17 19:39 04/27/17 20:39 DC 04/27/17 19:39 999 MLS/HR Aspirin (Ecotrin Tab) 81 mg QAM PO 04/28/17 09:00 05/28/17 08:59 04/28/17 07:54 81 MG Clopidogrel Bisulfate (plAVix TAB) 75 mg DAILY PO 04/28/17 09:00 05/28/17 08:59 04/28/17 07:54 75 MG Folic Acid (Folvite Tab) 1 mg QAM PO 04/28/17 09:00 05/28/17 08:59 04/28/17 07:54 1 MG Pantoprazole Sodium (Protonix Tab) 40 mg QAM PO 04/28/17 09:00 05/28/17 08:59 04/28/17 07:54 40 MG Potassium Chloride/Sodium Chloride 1,000 ml @ 100 mls/hr Q10H IV 04/27/17 23:00 04/28/17 10:19 DC 04/28/17 07:54 100 MLS/HR Dextrose (Dextrose 50% 50ML Syringe) 25-50ML OF 50% DW IV FOR... UD PRN IV 04/27/17 23:00 05/27/17 22:59 04/28/17 00:12 25 ML Magnesium Sulfate 1 gm/Prmx 100 ml @ 100 mls/hr Q1H IV 04/28/17 10:00 04/28/17 11:59 04/28/17 10:04 100 MLS/HR Lactulose (Chronulac Syrup) 30 gm BID PO 04/28/17 10:00 05/28/17 09:59 04/28/17 10:03 30 GM (Adeline Matute CRNP) Objective Vital Signs Date Time Temp Pulse Resp B/P (MAP) Pulse Ox O2 Delivery O2 Flow Rate FiO2 04/28/17 08:03 36.6 63 20 138/56 (83) 97 Room Air 04/28/17 08:00 Room Air 04/28/17 04:00 97 Room Air 04/28/17 03:12 36.6 56 18 149/68 (95) 97 Room Air 04/28/17 00:01 97 Room Air 04/27/17 23:14 36.4 49 17 148/69 (95) 96 Room Air 04/27/17 22:27 58 20 128/62 97 Room Air 04/27/17 22:17 98 Room Air 04/27/17 22:00 56 20 143/58 99 Room Air 04/27/17 21:34 56 20 141/57 94 Room Air 04/27/17 20:20 52 20 120/55 97 Room Air 04/27/17 19:05 59 04/27/17 18:39 97 Room Air 04/27/17 18:39 97 Room Air 04/27/17 18:07 36.9 68 20 139/50 96 Room Air (Adeline Matute CRNP) Physical Exam Notes: General: no distress Eyes: normal inspection, PERLL Respiratory: chest non tender, clear to auscultation, normal breath sounds, no respiratory distress, no accessory muscle use Cardiac: regular rate and rhythm, no rub or gallop, no murmur, no edema, no jvd GI/: active bowel sounds, no abd pain or tenderness, soft, non distended Extremities: normal range of motion, normal strength, non tender Neuro/Psych: alert and oriented to self - only able to state first name, normal mood and affect, no asterixis. Skin: normal color, dry (Adeline Matute CRNP) Laboratory Results Last 24 Hours Test 04/27/17 18:30 04/27/17 18:53 04/27/17 23:05 04/27/17 23:55 White Blood Count 6.75 K/uL Red Blood Count 3.78 M/uL Hemoglobin 11.6 g/dL Hematocrit 35.7 % Mean Corpuscular Volume 94.4 fL Mean Corpuscular Hemoglobin 30.7 pg Mean Corpuscular Hemoglobin Concent 32.5 g/dl Platelet Count 77 K/uL Mean Platelet Volume 10.5 fL Neutrophils (%) (Auto) 56.1 % Lymphocytes (%) (Auto) 33.6 % Monocytes (%) (Auto) 6.8 % Eosinophils (%) (Auto) 2.8 % Basophils (%) (Auto) 0.6 % Neutrophils # (Auto) 3.78 K/uL Lymphocytes # (Auto) 2.27 K/uL Monocytes # (Auto) 0.46 K/uL Eosinophils # (Auto) 0.19 K/uL Basophils # (Auto) 0.04 K/uL RDW Standard Deviation 60.3 fL RDW Coefficient of Variation 17.9 % Immature Granulocyte % (Auto) 0.1 % Immature Granulocyte # (Auto) 0.01 K/uL Polychromasia 1+ Anisocytosis PRESENT Ovalocytes 1+ Urine Color YELLOW Urine Appearance CLEAR Urine pH 8.5 Urine Specific Slick 1.011 Urine Protein NEG Urine Glucose (UA) NEG Urine Ketones NEG Urine Occult Blood NEG Urine Nitrite NEG Urine Bilirubin NEG Urine Urobilinogen NEG Urine Leukocyte Esterase NEG Urine WBC (Auto) 1-5 /hpf Urine RBC (Auto) 0-4 /hpf Urine Hyaline Casts (Auto) 1-5 /lpf Urine Epithelial Cells (Auto) 0-5 /lpf Urine Bacteria (Auto) NEG Sodium Level 151 mmol/L Potassium Level 3.6 mmol/L Chloride Level 118 mmol/L Carbon Dioxide Level 22 mmol/L Anion Gap 11.0 mmol/L Blood Urea Nitrogen 10 mg/dl Creatinine 1.00 mg/dl Est Creatinine Clear Calc Drug Dose 56.9 ml/min Estimated GFR () 67.5 Estimated GFR (Non- 58.3 BUN/Creatinine Ratio 10.0 Random Glucose 130 mg/dl Calcium Level 9.2 mg/dl Total Bilirubin 1.4 mg/dl Direct Bilirubin 0.5 mg/dl Aspartate Amino Transf (AST/SGOT) 67 U/L Alanine Aminotransferase (ALT/SGPT) 32 U/L Alkaline Phosphatase 131 U/L Troponin I < 0.015 ng/ml Total Protein 6.8 gm/dl Albumin 2.6 gm/dl Lipase 254 U/L Lactic Acid Level 2.1 mmol/L Ammonia 113.0 umol/L Bedside Glucose 69 mg/dl Test 04/28/17 05:19 04/28/17 05:30 04/28/17 06:11 Sodium Level 153 mmol/L Potassium Level 3.9 mmol/L Chloride Level 123 mmol/L Carbon Dioxide Level 21 mmol/L Anion Gap 9.0 mmol/L Blood Urea Nitrogen 11 mg/dl Creatinine 0.74 mg/dl Est Creatinine Clear Calc Drug Dose 77.0 ml/min Estimated GFR () 97.2 Estimated GFR (Non- 83.8 BUN/Creatinine Ratio 15.0 Random Glucose 95 mg/dl Lactic Acid Level 1.6 mmol/L Calcium Level 8.1 mg/dl Phosphorus Level 3.3 mg/dl Magnesium Level 1.7 mg/dl White Blood Count 4.99 K/uL Red Blood Count 3.34 M/uL Hemoglobin 10.2 g/dL Hematocrit 31.5 % Mean Corpuscular Volume 94.3 fL Mean Corpuscular Hemoglobin 30.5 pg Mean Corpuscular Hemoglobin Concent 32.4 g/dl RDW Standard Deviation 60.0 fL RDW Coefficient of Variation 17.8 % Platelet Count 54 K/uL Mean Platelet Volume 9.8 fL Bedside Glucose 98 mg/dl (Adeline Matute ., DENIZ) Assessment and Plan 66 y/o woman here with encephalopathy due to hypernatremia and elevated ammonia. Hx DM, Cirrhosis, esophageal varices, pancytopenia, dementia. Pt was recently admitted for worsening anemia and transfused 2 U PRBC 04/21 prior to undergoing and EGD which revealed varices due to portal HTN. She had initially presented with frequent falls only, however, initial CBC was abnormal leading to the above diagnosis. She was eventually discharged to a rehab facility due to ongoing gait dysfunction. She was sent to the ER today as staff reported that she was lethargic and confused. The pt is somnolent at the time of arrival in the ER and cannot provide any additional information or adequately follow commands. She does not exhibit a fever or additional signs of infection. 1) AMS - etiology not clear - hypernatremia likely due to dehydration. Ammonia elevated at 113 - TSH was recently normal. Hydrate D51/2nss, lactulose BID, hold any psychoactive medications and consider an MRI if her mentation does not improve. There is no clear evidence of infection - her WBC count is WNL where as she is normally neutropenic. Her UA is neg, she does not have abdominal tenderness and a recent CT abdomen did not reveal significant ascites. The pt does not display nuchal rigidity, photophobia or other signs of meningitis. 2) Pancytopenia - recent PRBC transfusion - this has improved from recent and will be trended. 4) Bradycardia is apparent on her EKG in addition to anterior inversions which may be rate related - we will hold Nadolol AM and this may require an adjustment prior to DC. 5) The pt's CXR is equivocal - repeat x ray favors atelectasis over pneumonia. If no improvement with lactulose and hydration or new symptoms concerning for infection, will consider chest CT 6) DM - placed on SS Full code - SCDs, no heparin due to thrombocytopenia (Adeline Matute ., DENIZ) Attending Attestation: Pt seen/examined, chart reviewed, care plan d/w DENIZ Matute. I agree w/ the balbuena components of her documentation. Through the day today the patient has gradually woken up with improved mentation. Had multiple large BMs with lactulose. Tele stable. During my visit she stated she was at [facility]. Asked "when can I go home?" Denied headache, cp, sob, abd pain. VSS no fever gen - NAD, awake, alert but confused neck - no JVD mouth - MM dry heart - RRR lungs - CTA b/l abd - soft, NT, ND, BS+ ext - no edema neuro - no asterixis labs - Na now 148 ammonia overnight >100 A/P: 1. hepatic encephalopathy - likely cause of altered MS at presentation. Hypernatremia could lead to altered MS as well. 2. hypernatremic dehydration. 3. known cirrhosis. 4. pancytopenia 2nd to #3. 5. T2DM with hypoglycemia. 6. abnormal cxr. agree with lactulose hydrate with hypotonic fluids; serial BMPs repeat cxr to r/o concomitant pneumonia/infectious process. no evidence of decompensated cirrhosis, sbp, etc. will need PT, OT evals once awake/alert/improved J GEORGIE CROWDER (Aidan Booth MD)
[2017-04-28 16:08] LABS: BUN/CREATININE RATIO 12.1 (10-20); CALCIUM 8.2 mg/dl (8.5-10.1); CREATININE 0.89 mg/dl (0.60-1.20); POTASSIUM 3.6 mmol/L (3.5-5.1)
[2017-04-28] MEDS: ROPINIROLE HCL 0.25 MG TAB PO SCH (20:29)
[2017-04-28] MEDS: ATORVASTATIN 40 MG TAB PO SCH (20:29)
[2017-04-29 03:08] VITALS: BP 130/56; PULSE 67; TEMP 36.9; O2SAT 94
[2017-04-29 06:26] LABS: MEAN CELL VOLUME 91.5 fL (80-100); MEAN CORPUSCULAR HEMOGLOBIN 30.1 pg (25-34); MEAN CORPUSCULAR HGB CONC 32.9 g/dl (32-36); RED BLOOD COUNT 3.06 M/uL (4.2-5.4); WHITE BLOOD COUNT 4.52 K/uL (4.8-10.8)
[2017-04-29 06:30] LABS: MEAN PLATELET VOLUME 9.5 fL (7.4-10.4); PLATELET COUNT 43 K/uL (130-400)
[2017-04-29 07:03] LABS: CALCIUM 7.6 mg/dl (8.5-10.1); CREATININE 0.86 mg/dl (0.60-1.20); MAGNESIUM 1.7 mg/dl (1.8-2.4); POTASSIUM 3.2 mmol/L (3.5-5.1)
[2017-04-29 07:08] LABS: ALB/GLOB RATIO 0.7 (0.9-2)
[2017-04-29 07:29] VITALS: BP 147/57; PULSE 66; TEMP 36.9; O2SAT 97
[2017-04-29] MEDS: LACTULOSE SYRUP 30 GM/45 ML UDP PO SCH ×2 (07:51→21:21)
[2017-04-29] MEDS: CLOPIDOGREL BISULFATE 75 MG TAB PO SCH (07:52)
[2017-04-29] MEDS: PANTOprazole SOD 40 MG TAB PO SCH (07:52)
[2017-04-29] MEDS: ATORVASTATIN 40 MG TAB PO SCH (07:52)
[2017-04-29] MEDS: DOCUSATE SODIUM 100 MG CAP PO SCH ×2 (07:53→20:55)
[2017-04-29] MEDS: ASPIRIN 81 MG ECTAB PO SCH (07:53)
[2017-04-29] MEDS: INSULIN ASPART 100 UNITS/ML 3 ML PEN SC SCH ×4 (07:55→21:13)
[2017-04-29] MEDS: D5W AND 1/2NSS 1,000 ML IV SCH (08:02)
[2017-04-29] MEDS: MAGNESIUM SULFATE 1GM / D5W 1 GM in PREMIXED IN D5W 100 ML IV SCH ×2 (08:59→10:03)
[2017-04-29] MEDS ORDERED: POTASSIUM CHLORIDE 20 MEQ TABCR PO ONE ×2 (09:00→12:45)
[2017-04-29] MEDS ORDERED: SODIUM CHLOR 0.45% + 20MEQ KCL 1,000 ML IV SCH (09:00)
--- NOTE | 2017-04-29 09:35 | Hospitalist Progress Note ---
Hospitalist Progress Note Date of Service Apr 29, 2017. (Adeline Matute CRNP) Subjective Pt evaluation today including: conversation w/ patient, physical exam, chart review, lab review, review of studies, conversation w/ managing consultant Voiding: no voiding problems Respiratory: No cough Cardiovascular: No chest pain Abdomen: No pain, No nausea, No vomiting, No diarrhea All Other Systems: Reviewed and Negative (Adeline Matute CRNP) Medications Medications (Trade) Dose Ordered Sig/Kole Route Start Time Stop Time Status Last Admin Dose Admin Atorvastatin Calcium (Lipitor Tab) 40 mg HS PO 04/28/17 21:00 05/28/17 20:59 04/29/17 07:52 40 MG Ropinirole HCl (Requip Tab) 0.5 mg HS PO 04/28/17 21:00 05/28/17 20:59 04/28/17 20:29 0.5 MG Magnesium Sulfate 1 gm/Prmx 100 ml @ 100 mls/hr Q1H IV 04/28/17 10:00 04/28/17 11:59 DC 04/28/17 10:58 100 MLS/HR Lactulose (Chronulac Syrup) 30 gm BID PO 04/28/17 10:00 05/28/17 09:59 04/29/17 07:51 30 GM Dextrose/Sodium Chloride 1,000 ml @ 80 mls/hr [id number] IV 04/28/17 10:00 04/29/17 08:25 DC 04/29/17 08:02 80 MLS/HR Potassium Chloride/Sodium Chloride 1,000 ml @ 80 mls/hr [id number] IV 04/29/17 09:00 05/29/17 08:59 04/29/17 08:59 80 MLS/HR Potassium Chloride (Klor-Con Tab) 20 meq 0900 ONCE PO 04/29/17 09:00 04/29/17 09:01 DC 04/29/17 09:04 20 MEQ Magnesium Sulfate 1 gm/Prmx 100 ml @ 100 mls/hr Q1H IV 04/29/17 09:00 04/29/17 10:59 04/29/17 08:59 100 MLS/HR (Adeline Matute CRNP) Objective Vital Signs Date Time Temp Pulse Resp B/P (MAP) Pulse Ox O2 Delivery O2 Flow Rate FiO2 9/28/17 08:00 Room Air 04/29/17 07:29 36.9 66 19 147/57 (87) 97 Room Air 04/29/17 04:00 Room Air 04/29/17 03:08 36.9 67 18 130/56 (80) 94 Room Air 04/29/17 00:01 Room Air 04/28/17 23:22 37.0 65 17 118/52 (74) 94 Room Air 04/28/17 20:00 Room Air 04/28/17 19:29 36.7 65 16 135/75 (95) 95 Room Air 04/28/17 15:22 Room Air 04/28/17 15:08 36.8 70 16 157/68 (97) 94 Room Air 04/28/17 12:00 Room Air 04/28/17 11:50 36.9 61 16 138/60 (86) 96 Room Air (Adeline Matute CRNP) Physical Exam Notes: General: no distress Eyes: normal inspection, PERLL, EOMI Respiratory: chest non tender, crackles right base all other cabral clear, no respiratory distress, no accessory muscle use Cardiac: regular rate and rhythm, no rub or gallop, no murmur, no edema, no jvd GI/: active bowel sounds, no abd pain or tenderness, soft, non distended Extremities: normal range of motion, normal strength, non tender Neuro/Psych: alert and oriented to self only, normal mood and affect, Skin: normal color, dry (Adeline Matute CRNP) Laboratory Results Last 24 Hours Test 04/28/17 11:01 04/28/17 15:17 04/28/17 16:03 04/28/17 20:26 Bedside Glucose 222 mg/dl 198 mg/dl 236 mg/dl Sodium Level 148 mmol/L Potassium Level 3.6 mmol/L Chloride Level 119 mmol/L Carbon Dioxide Level 17 mmol/L Anion Gap 12.0 mmol/L Blood Urea Nitrogen 11 mg/dl Creatinine 0.89 mg/dl Est Creatinine Clear Calc Drug Dose 64.6 ml/min Estimated GFR () 77.7 Estimated GFR (Non- 67.1 BUN/Creatinine Ratio 12.1 Random Glucose 213 mg/dl Calcium Level 8.2 mg/dl Test 04/29/17 06:14 04/29/17 07:06 White Blood Count 4.52 K/uL Red Blood Count 3.06 M/uL Hemoglobin 9.2 g/dL Hematocrit 28.0 % Mean Corpuscular Volume 91.5 fL Mean Corpuscular Hemoglobin 30.1 pg Mean Corpuscular Hemoglobin Concent 32.9 g/dl RDW Standard Deviation 58.0 fL RDW Coefficient of Variation 17.7 % Platelet Count 43 K/uL Mean Platelet Volume 9.5 fL Sodium Level 146 mmol/L Potassium Level 3.2 mmol/L Chloride Level 116 mmol/L Carbon Dioxide Level 19 mmol/L Anion Gap 11.0 mmol/L Blood Urea Nitrogen 8 mg/dl Creatinine 0.86 mg/dl Est Creatinine Clear Calc Drug Dose 67.3 ml/min Estimated GFR () 81.0 Estimated GFR (Non- 69.9 BUN/Creatinine Ratio 9.0 Random Glucose 240 mg/dl Calcium Level 7.6 mg/dl Magnesium Level 1.7 mg/dl Total Bilirubin 1.6 mg/dl Aspartate Amino Transf (AST/SGOT) 59 U/L Alanine Aminotransferase (ALT/SGPT) 26 U/L Alkaline Phosphatase 106 U/L Ammonia 92.0 umol/L Total Protein 5.5 gm/dl Albumin 2.2 gm/dl Globulin 3.3 gm/dl Albumin/Globulin Ratio 0.7 Bedside Glucose 244 mg/dl (Adeline Matute ., TREE GIRDLER) Assessment and Plan 66 y/o woman here with encephalopathy due to hypernatremia and elevated ammonia secondary to cirrhosis. Hx DM, Cirrhosis, esophageal varices, pancytopenia, dementia. Pt was recently admitted for worsening anemia and transfused 2 U PRBC 04/21 prior to undergoing and EGD which revealed varices due to portal HTN. She had initially presented with frequent falls only, however, initial CBC was abnormal leading to the above diagnosis. She was eventually discharged to a rehab facility due to ongoing gait dysfunction. She was sent to the ER today as staff reported that she was lethargic and confused. The pt is somnolent at the time of arrival in the ER and cannot provide any additional information or adequately follow commands. She does not exhibit a fever or additional signs of infection. 1) AMS - hypernatremia likely due to dehydration nearly corrected to normal without improvement in MS. Ammonia trending down. Fluids changed to Nss 20K from 08/03 NSS as sodium has normalized, lactulose BID, hold any psychoactive medications and consider an MRI if her mentation does not improve. There is no clear evidence of infection - her WBC count is WNL where as she is normally neutropenic. Her UA is neg, she does not have abdominal tenderness and a recent CT abdomen did not reveal significant ascites. The pt does not display nuchal rigidity, photophobia or other signs of meningitis. 2) Pancytopenia - recent PRBC transfusion - this has improved from recent and will be trended. 4) Bradycardia resolved - heart rate is in the 60s - will continue to hold Nadolol AM for now and this may require an adjustment prior to DC. 5) The pt's CXR is equivocal - repeat x ray favors atelectasis over pneumonia. If no improvement with lactulose and hydration or new symptoms concerning for infection, will consider chest CT 6) DM - Blood sugars are running in the 2-300s, D/C'd dextrose in fluids, basal insulin bid, sliding scale Full code - SCDs, no heparin due to thrombocytopenia (Adeline Matute ., DENIZ) SUGAR TRUCKER Physician Supervision Note: I interviewed and examined the patient. Discussed with Dasia aMtute SUGAR TRUCKER and agree with findings and plan as documented in the note. Any exceptions or clarifications are listed here: None This patient is pleasantly confused but awake she is tolerant of her oral lactulose her ammonia is coming down is unclear whether she never been on lactulose in the past Vital signs are reviewed and stable She is awake and oriented to place but not time her abdomen is normal active bowel sounds and soft does not appear to be ascites present Hepatic encephalopathy improving with treatment of lactulose Documented By: Carmelo Thompson (Carmelo Thompson M.D.)
[2017-04-29 10:36] VITALS: BP 130/63; PULSE 65; TEMP 37; O2SAT 95
[2017-04-29] MEDS ORDERED: POTASSIUM CHLORIDE 20 MEQ TABCR PO SCH (12:00)
[2017-04-29] MEDS ORDERED: INSULIN GLARGINE SOLOSTAR 100 UNITS/ML 3 ML PEN SC ONE (13:00)
[2017-04-29 14:32] LABS: BUN/CREATININE RATIO 7.3 (10-20); CALCIUM 7.9 mg/dl (8.5-10.1); CREATININE 0.98 mg/dl (0.60-1.20); POTASSIUM 3.7 mmol/L (3.5-5.1)
[2017-04-29 14:37] VITALS: Ht 165.1 cm; Wt 82.3 kg
[2017-04-29 14:46] LABS: BETA-HYDROXYBUTYRATE 0.69 mg/dL (0.2-2.81)
[2017-04-29] MEDS: NSS + 20MEQ KCL 1000ML 1,000 ML IV SCH (14:59)
[2017-04-29 15:20] VITALS: BP 150/65; PULSE 69; TEMP 36.8; O2SAT 95
[2017-04-29 19:28] VITALS: BP 150/65; PULSE 74; TEMP 36.7; O2SAT 95
[2017-04-29] MEDS: INSULIN GLARGINE SOLOSTAR 100 UNITS/ML 3 ML PEN SC SCH (21:12)
[2017-04-29] MEDS: ROPINIROLE HCL 0.25 MG TAB PO SCH (21:21)
[2017-04-29 22:54] VITALS: BP 148/55; PULSE 78; TEMP 37; O2SAT 96
[2017-04-30] MEDS: NSS + 20MEQ KCL 1000ML 1,000 ML IV SCH ×2 (02:11→15:00)
[2017-04-30 04:02] VITALS: BP 124/61; PULSE 73; TEMP 36.9; O2SAT 95
[2017-04-30 06:15] LABS: HEMATOCRIT 27.9 % (37-47); MEAN CELL VOLUME 92.1 fL (80-100); MEAN CORPUSCULAR HGB CONC 32.6 g/dl (32-36); RED BLOOD COUNT 3.03 M/uL (4.2-5.4); WHITE BLOOD COUNT 4.69 K/uL (4.8-10.8)
[2017-04-30 06:18] LABS: MEAN PLATELET VOLUME 10.2 fL (7.4-10.4); PLATELET COUNT 41 K/uL (130-400)
[2017-04-30 06:53] LABS: BUN/CREATININE RATIO 9.6 (10-20); CALCIUM 7.7 mg/dl (8.5-10.1); CREATININE 0.73 mg/dl (0.60-1.20); POTASSIUM 3.7 mmol/L (3.5-5.1)
[2017-04-30 07:24] VITALS: BP 128/61; PULSE 60; TEMP 36.9; O2SAT 91
[2017-04-30] MEDS: ASPIRIN 81 MG ECTAB PO SCH (07:58)
[2017-04-30] MEDS: PANTOprazole SOD 40 MG TAB PO SCH (07:59)
[2017-04-30] MEDS: LACTULOSE SYRUP 30 GM/45 ML UDP PO SCH ×2 (08:00→21:39)
[2017-04-30] MEDS: INSULIN GLARGINE SOLOSTAR 100 UNITS/ML 3 ML PEN SC SCH ×2 (08:03→21:42)
[2017-04-30] MEDS: INSULIN ASPART 100 UNITS/ML 3 ML PEN SC SCH ×4 (08:15→21:43)
[2017-04-30] MEDS: CLOPIDOGREL BISULFATE 75 MG TAB PO SCH (08:16)
[2017-04-30] MEDS: DOCUSATE SODIUM 100 MG CAP PO SCH (08:16)
[2017-04-30 11:37] VITALS: BP 149/63; PULSE 73; TEMP 36.7; O2SAT 94
--- NOTE | 2017-04-30 12:23 | Hospitalist Progress Note ---
Hospitalist Progress Note Date of Service Apr 30, 2017. (Adeline Matute CRNP) Subjective Pt evaluation today including: conversation w/ patient, conversation w/ family , physical exam Voiding: no voiding problems Ms. Rangel is much more alert today than the last two days. Able to answer all of my questions appropriately and tell stories about her cat. She is not having any pain or discomfort and would like to go home. Constitutional: No fever, No chills Respiratory: No cough, No sputum, No shortness of breath Cardiovascular: No chest pain, No palpitations Abdomen: + diarrhea, No pain, No nausea, No vomiting All Other Systems: Reviewed and Negative (Adeline Matute CRNP) Medications Medications (Trade) Dose Ordered Sig/Kole Route Start Time Stop Time Status Last Admin Dose Admin Insulin Glargine (Lantus Solostar Pen) 38 units BID SC 04/29/17 21:00 05/29/17 20:59 04/30/17 08:03 38 UNITS Insulin Glargine (Lantus Solostar Pen) 38 units NOW ONCE SC 04/29/17 13:00 04/29/17 13:01 DC 04/29/17 13:06 38 UNITS Potassium Chloride (Klor-Con Tab) 20 meq NOW ONCE PO 04/29/17 12:45 04/29/17 12:46 DC 04/29/17 13:06 20 MEQ Potassium Chloride/Sodium Chloride 1,000 ml @ 80 mls/hr [id number] IV 04/29/17 15:00 05/29/17 14:59 04/30/17 02:11 80 MLS/HR (Adeline Matute CRNP) Objective Vital Signs Date Time Temp Pulse Resp B/P (MAP) Pulse Ox O2 Delivery O2 Flow Rate FiO2 04/30/17 11:37 36.7 73 18 149/63 (91) 94 Room Air 04/30/17 08:00 Room Air 04/30/17 07:24 36.9 60 19 128/61 (83) 91 Room Air 04/30/17 04:02 36.9 73 20 124/61 (82) 95 Room Air 04/30/17 04:00 Room Air 04/30/17 00:00 Room Air 04/29/17 22:54 37.0 78 20 148/55 (86) 96 Room Air 04/29/17 20:00 Room Air 04/29/17 19:28 36.7 74 18 150/65 (93) 95 Room Air 04/29/17 16:00 Room Air 04/29/17 15:20 36.8 69 18 150/65 (93) 95 Room Air (Adeline Matute CRNP) Physical Exam Notes: General: no distress Eyes: normal inspection, PERLL Respiratory: chest non tender, clear to auscultation, normal breath sounds, no respiratory distress, no accessory muscle use Cardiac: regular rate and rhythm, no rub or gallop, no murmur, no edema, no jvd GI/: active bowel sounds, no abd pain or tenderness, soft, non distended Extremities: normal range of motion, normal strength, non tender Neuro/Psych: alert and oriented x 3, normal mood and affect Skin: normal color, dry (Adeline Matute CRNP) Laboratory Results Last 24 Hours Test 04/29/17 13:55 04/29/17 16:04 04/29/17 20:05 04/30/17 05:33 Sodium Level 142 mmol/L 148 mmol/L Potassium Level 3.7 mmol/L 3.7 mmol/L Chloride Level 114 mmol/L 120 mmol/L Carbon Dioxide Level 19 mmol/L 20 mmol/L Anion Gap 9.0 mmol/L 8.0 mmol/L Blood Urea Nitrogen 7 mg/dl 7 mg/dl Creatinine 0.98 mg/dl 0.73 mg/dl Est Creatinine Clear Calc Drug Dose 59.0 ml/min 79.2 ml/min Estimated GFR () 69.2 98.8 Estimated GFR (Non- 59.7 85.2 BUN/Creatinine Ratio 7.3 9.6 Random Glucose 323 mg/dl 116 mg/dl Calcium Level 7.9 mg/dl 7.7 mg/dl Beta-Hydroxybutyric Acid 0.69 mg/dL Bedside Glucose 239 mg/dl 194 mg/dl White Blood Count 4.69 K/uL Red Blood Count 3.03 M/uL Hemoglobin 9.1 g/dL Hematocrit 27.9 % Mean Corpuscular Volume 92.1 fL Mean Corpuscular Hemoglobin 30.0 pg Mean Corpuscular Hemoglobin Concent 32.6 g/dl RDW Standard Deviation 58.9 fL RDW Coefficient of Variation 17.8 % Platelet Count 41 K/uL Mean Platelet Volume 10.2 fL Test 04/30/17 06:49 04/30/17 07:20 04/30/17 11:06 Bedside Glucose 120 mg/dl 251 mg/dl Ammonia 53.0 umol/L (Adeline Matute CRNP) Assessment and Plan 66 y/o woman here with encephalopathy due to hypernatremia and elevated ammonia secondary to cirrhosis. Hx DM, Cirrhosis, esophageal varices, pancytopenia, dementia. Pt was recently admitted for worsening anemia and transfused 2 U PRBC 04/21 prior to undergoing and EGD which revealed varices due to portal HTN. She had initially presented with frequent falls only, however, initial CBC was abnormal leading to the above diagnosis. She was eventually discharged to a rehab facility due to ongoing gait dysfunction. She was sent to the ER today as staff reported that she was lethargic and confused. The pt is somnolent at the time of arrival in the ER and cannot provide any additional information or adequately follow commands. She does not exhibit a fever or additional signs of infection. 1) AMS - hypernatremia likely due to dehydration nearly corrected to normal without improvement in MS. Now that her ammonia has been trending down for a second day and her mentation has vastly improved, it points to her ammonia level as the source of her AMS. Fluids changed to Nss 20K, lactulose BID. There is no clear evidence of infection - her WBC count is WNL where as she is normally neutropenic. Her UA is neg, she does not have abdominal tenderness and a recent CT abdomen did not reveal significant ascites. The pt does not display nuchal rigidity, photophobia or other signs of meningitis. 2) Pancytopenia - recent PRBC transfusion - this has improved from recent and will be trended. 4) Bradycardia resolved - heart rate is in the 60s - will continue to hold Nadolol AM for now and this may require an adjustment prior to DC. 5) The pt's CXR is equivocal - repeat x ray favors atelectasis over pneumonia. 6) DM - Blood sugars are continuing to run high with the initiation of Lantus, will tighten ss Transfer to medical floor Full code - SCDs, no heparin due to thrombocytopenia (Adeline Matute CRNP) COATER SLATE Physician Supervision Note: I interviewed and examined the patient. Discussed with Dasia Matute COATER SLATE and agree with findings and plan as documented in the note. Any exceptions or clarifications are listed here: None This patient was seen was still slightly confused until the day or time she was oriented to person and place I do not feel safe for the patient to go home will continue to evaluate improvement of her encephalopathy and physical therapy occupational therapy evaluations to determine if she may benefit from a short stay in skilled facility prior to going home. She continues to have bowel movements Vital signs are stable Physical exam she is awake and alert her heart is regular lungs are clear abdomen is normal active bowel sounds soft does not appear to be any ascites Hepatic encephalopathy improving with lactulose will continue lactulose assess for appropriate disposition We'll consult gastroenterology to determine if she should be on other medications or just plain lactulose by itself to manage her encephalopathy Documented By: Carmelo Thompson (Carmelo Thompson M.D.)
[2017-04-30 13:48] VITALS: BP 149/63; PULSE 73; TEMP 36.7; O2SAT 94
[2017-04-30 13:59] VITALS: BP 145/56; PULSE 72; TEMP 36.8; O2SAT 96
[2017-04-30] MEDS: ATORVASTATIN 40 MG TAB PO SCH (21:39)
[2017-04-30] MEDS: ROPINIROLE HCL 0.25 MG TAB PO SCH (21:39)
[2017-04-30 23:44] VITALS: BP 132/58; PULSE 75; TEMP 36.9; O2SAT 98
[2017-05-01] MEDS: NSS + 20MEQ KCL 1000ML 1,000 ML IV SCH (02:52)
[2017-05-01 06:45] LABS: HEMATOCRIT 27.5 % (37-47); MEAN CELL VOLUME 92.3 fL (80-100); MEAN CORPUSCULAR HEMOGLOBIN 30.2 pg (25-34); MEAN CORPUSCULAR HGB CONC 32.7 g/dl (32-36); RED BLOOD COUNT 2.98 M/uL (4.2-5.4); WHITE BLOOD COUNT 3.84 K/uL (4.8-10.8)
[2017-05-01 06:56] LABS: MEAN PLATELET VOLUME 10.1 fL (7.4-10.4); PLATELET COUNT 44 K/uL (130-400)
[2017-05-01 06:57] VITALS: BP 122/52; PULSE 75; TEMP 37.2; O2SAT 95
[2017-05-01 07:09] LABS: BUN/CREATININE RATIO 8.5 (10-20); CALCIUM 7.8 mg/dl (8.5-10.1); CREATININE 0.68 mg/dl (0.60-1.20); POTASSIUM 3.6 mmol/L (3.5-5.1)
[2017-05-01] MEDS: CLOPIDOGREL BISULFATE 75 MG TAB PO SCH (07:46)
[2017-05-01] MEDS: ASPIRIN 81 MG ECTAB PO SCH (07:46)
[2017-05-01] MEDS: PANTOprazole SOD 40 MG TAB PO SCH (07:46)
[2017-05-01] MEDS: LACTULOSE SYRUP 30 GM/45 ML UDP PO SCH ×2 (07:46→20:53)
[2017-05-01] MEDS: INSULIN ASPART 100 UNITS/ML 3 ML PEN SC SCH ×4 (07:48→21:02)
[2017-05-01] MEDS: INSULIN GLARGINE SOLOSTAR 100 UNITS/ML 3 ML PEN SC SCH ×2 (07:49→21:03)
[2017-05-01] MEDS ORDERED: LCTL45 PO (13:53)
[2017-05-01] MEDS ORDERED: NRN300 PO (13:53)
--- NOTE | 2017-05-01 13:55 | Discharge Instructions ---
Discharge Instructions Date of Service May 01, 2017. Admission Reason for Admission: Altered Mental Status, Dehydration Discharge Discharge Diagnosis / Problem: elevated ammonia, hypernatremia Discharge Goals Goal(s): Improve disease control Activity Recommendations Activity Limitations: resume your previous activity Exercise/Sports Limitations: as tolerated . Instructions / Follow-Up Instructions / Follow-Up You were admitted to [facility] with altered mental status secondary to dehydration. During your stay here you were treated with intravenous fluids and other supportive care. Nephrology saw you for an elevated sodium level; you should continue to drink 2- 3 L of water a day. Medications Continue taking your medications as prescribed. Appointments: Follow up with physician at nursing facility within 24-28 hours of discharge. Current Hospital Diet Patient's current hospital diet: AHA Diet (Heart Healthy), Diabetes Type 2 Diet Discharge Diet Recommended Diet: AHA Diet (Heart Healthy) Procedures Procedures Performed: Chest x ray Head CT Pending Studies Studies pending at discharge: no Laboratory Results Hemoglobin A1c Test 03/24/17 14:55 Range/Units Estimated Average Glucose 160 mg/dl Hemoglobin A1c 7.2 H 4.5-5.6 % Lipid Panel Test 03/24/17 14:55 Range/Units Triglycerides Level 141 0-150 mg/dl Cholesterol Level 93 0-200 mg/dl HDL Cholesterol 31 mg/dl Cholesterol/HDL Ratio 3.0 LDL Cholesterol, Calculated 34 mg/dl Medical Emergencies . Who to Call and When: Medical Emergencies: If at any time you feel your situation is an emergency, please call 911 immediately. . Non-Emergent Contact Non-Emergency issues call your: Primary Care Provider Call Non-Emergent contact if: you have any medication questions other concerns with your health. Call 911 or go directly to the Emergency Department if you experience any of the following: Chest pain, chest tightness, shortness of breath, abdominal pain , lightheadedness, dizziness, gastrointestinal bleeding, or have any other concerns regarding your health. . . "Provider Documentation" section prepared by Adeline Matute. . VTE Core Measure Inpt VTE Proph given/why not?: SCD's
--- NOTE | 2017-05-01 15:09 | Discharge Summary ---
Discharge Summary Date of Service May 01, 2017. (Adeline Matute CRNP) Discharge Summary Admission Date: Apr 27, 2017 at 21:25 Discharge Date: May 01, 2017 Discharge Disposition: Rehab Principal Diagnosis: AMS Immunizations: Have You Had Influenza Vaccine: Yes Influenza Vaccine Date: May 29, 2011 History of Tetanus Vaccine?: Yes Tetanus Immunization Date: Sep 29, 2005 History of Pneumococcal: No Pneumococcal Date: Mar 10, 2008 History of Hepatitis B Vaccine: No Procedures: Chest x ray IMPRESSION: 1. Stable interstitial thickening 2. Left basilar opacities, likely atelectatic 3. No evidence of lobar consolidation (Adeline Matute CRNP) Medication Reconciliation New Medications: Gabapentin (Gabapentin) 300 Mg Cap 300 MG PO BID for 30 Days, #60 DOSE Lactulose (Lactulose) 30 Gm/45 Ml Syrp 30 ML PO BID for 30 Days, #60 DOSE Continued Medications: Aspirin (Aspirin Ec) 81 Mg Tab 81 MG PO QAM Atorvastatin (Lipitor) 40 Mg Tab 40 MG PO HS Carboxymethylcellulose Sodium (Refresh) 1 % Randy 1 DROP OPB QID PRN for DRYNESS Cholecalciferol (Vitamin D3) 2,000 Unit Tab 2000 INTERUNIT PO QAM Clopidogrel Bisulfate (Clopidogrel) 75 Mg Tab 75 MG PO DAILY Diclofenac Sodium (Topical) (Voltaren 1% Top Gel) 1 % Gel 1 DOSE EXT QID, #100 GM apply to right upper chest wall (around costochondral junction of ribs 3,4) QID Docusate Sodium (Docusate Sodium) 100 Mg Cap 100 MG PO BID, CAP Donepezil Hydrochloride (Donepezil Hcl) 5 Mg Tab 5 MG PO HS Ferrous Gluconate (Iron Supplement) 324 Mg Tab 324 MG PO DAILY, #30 TAB Folic Acid (Folvite) 1 Mg Tab 1 MG PO QAM Insulin Isophan/Regular (Novolin 70/30) Susp 75 UNITS SC AMPM Lisinopril (Lisinopril) 2.5 Mg Tab 2.5 MG PO DAILY Magnesium Oxide (Mag-Ox) 400 Mg Tab 400 MG PO QAM Metformin Hcl (Glucophage) 1,000 Mg Tab 1000 MG PO BID Mirtazapine (Remeron) 30 Mg Tab 30 MG PO HS Multiple Vitamins W/ Minerals (Preservision Areds 2) 1 Cap Cap 1 CAP PO BID Nadolol (Corgard) 20 Mg Tab 1 TAB PO DAILY for 30 Days, #30 TAB 5 Refills Pantoprazole (Protonix) 40 Mg Tab 40 MG PO QAM Ropinirole Hydrochloride (Requip) 0.5 Mg Tab 0.5 MG PO HS Discontinued Medications: Gabapentin (Neurontin) 300 Mg Cap 300 MG PO TID Ropinirole (Requip) 1 Mg Tab 1 MG PO HS PRN for RLS Trazodone Hcl (Trazodone) 50 Mg Tab 50 MG PO HS Discharge Exam Review of Systems: Constitutional: No chills, No sweats Respiratory: No cough, No sputum, No shortness of breath Cardiovascular: No chest pain Abdomen: No pain, No nausea, No vomiting Genitourinary - Female: No dysuria Physical Exam: General Appearance: WD/WN, no apparent distress Eyes: normal inspection, PERRL, EOMI Respiratory/Chest: chest non-tender, lungs clear, normal breath sounds, no respiratory distress, no accessory muscle use Cardiovascular: regular rate, rhythm, no edema, no gallop, no JVD, no murmur , normal peripheral pulses Abdomen / GI: normal bowel sounds, non tender, soft Neurologic/Psychiatric: alert, oriented x 3 Skin: normal color, warm/dry (Adeline Matute, DENIZ) Hospital Course 66 y/o woman here with encephalopathy due to hypernatremia and elevated ammonia secondary to cirrhosis. Hx DM, Cirrhosis, esophageal varices, pancytopenia, dementia. Pt was recently admitted for worsening anemia and transfused 2 U PRBC 04/21 prior to undergoing and EGD which revealed varices due to portal HTN. She had initially presented with frequent falls only, however, initial CBC was abnormal leading to the above diagnosis. She was eventually discharged to a rehab facility due to ongoing gait dysfunction. She was sent to the ER as staff reported that she was lethargic and confused. The pt was somnolent at the time of arrival in the ER and cannot provide any additional information or adequately follow commands. 1) AMS - hypernatremia likely due to dehydration nearly corrected to normal without improvement in MS. Now that her ammonia has been trending down for a second day and her mentation has vastly improved, it points to her ammonia level as the source of her AMS. Fluids discontinued, lactulose BID. There is no clear evidence of infection - her WBC count is WNL where as she is normally neutropenic. Her UA is neg, she does not have abdominal tenderness and a recent CT abdomen did not reveal significant ascites. The pt does not display nuchal rigidity, photophobia or other signs of meningitis. 2) Pancytopenia - recent PRBC transfusion - this has improved from recent and will be trended. 4) Bradycardia resolved - resume nadolol 5) The pt's CXR is equivocal - repeat x ray favors atelectasis over pneumonia. 6) DM - Blood sugars were elevated, managed with Lantus and sliding scale Full code - SCDs, no heparin due to thrombocytopenia Total Time Spent: Less than 30 minutes This includes examination of the patient, discharge planning, medication reconciliation, and communication with other providers. (Adeline Matute ., DENIZ) Discharge Instructions Please refer to the electronic Patient Visit Report (Discharge Instructions) for additional information. (Adeline Matute ., DENIZ)
[2017-05-01 15:20] VITALS: BP 151/64; PULSE 76; TEMP 36.8; O2SAT 97
--- NOTE | 2017-05-01 15:23 | Hospitalist Progress Note ---
Hospitalist Progress Note Date of Service May 01, 2017. (Adeline Matute CRNP) Subjective Pt evaluation today including: conversation w/ patient, physical exam, chart review, lab review, review of inpatient medication list Voiding: no voiding problems Ms. Rangel has no complaints this morning. She is feeling well overall and wants to go home as she misses her cat. Constitutional: No fever, No chills Respiratory: No cough, No sputum, No shortness of breath Cardiovascular: No chest pain, No palpitations Abdomen: + diarrhea, No pain, No nausea, No vomiting, No constipation Female : No dysuria All Other Systems: Reviewed and Negative (Adeline Matute CRNP) Objective Vital Signs Date Time Temp Pulse Resp B/P (MAP) Pulse Ox O2 Delivery O2 Flow Rate FiO2 05/01/17 08:15 Room Air 05/01/17 06:57 37.2 75 18 122/52 (75) 95 Room Air 05/01/17 00:00 Room Air 04/30/17 23:44 36.9 75 20 132/58 (82) 98 Room Air 04/30/17 18:24 Room Air (Adeline Matute CRNP) Physical Exam General Appearance: WD/WN Notes: General: no distress Eyes: normal inspection, PERLL Respiratory: chest non tender, clear to auscultation, normal breath sounds, no respiratory distress, no accessory muscle use Cardiac: regular rate and rhythm, no rub or gallop, II/IV systolic murmur over right second intercostal space, no edema, no jvd GI/: active bowel sounds, no abd pain or tenderness, soft, non distended Extremities: normal range of motion, normal strength, non tender Neuro/Psych: alert and oriented x 3, normal mood and affect Skin: normal color, dry (Adeline Matute CRNP) Laboratory Results Last 24 Hours Test 04/30/17 16:06 04/30/17 20:25 05/01/17 06:16 05/01/17 07:32 Bedside Glucose 223 mg/dl 200 mg/dl 107 mg/dl White Blood Count 3.84 K/uL Red Blood Count 2.98 M/uL Hemoglobin 9.0 g/dL Hematocrit 27.5 % Mean Corpuscular Volume 92.3 fL Mean Corpuscular Hemoglobin 30.2 pg Mean Corpuscular Hemoglobin Concent 32.7 g/dl RDW Standard Deviation 60.6 fL RDW Coefficient of Variation 18.1 % Platelet Count 44 K/uL Mean Platelet Volume 10.1 fL Sodium Level 146 mmol/L Potassium Level 3.6 mmol/L Chloride Level 118 mmol/L Carbon Dioxide Level 20 mmol/L Anion Gap 8.0 mmol/L Blood Urea Nitrogen 6 mg/dl Creatinine 0.68 mg/dl Est Creatinine Clear Calc Drug Dose 85.1 ml/min Estimated GFR () 104.9 Estimated GFR (Non- 90.5 BUN/Creatinine Ratio 8.5 Random Glucose 112 mg/dl Calcium Level 7.8 mg/dl Test 05/01/17 11:23 Bedside Glucose 140 mg/dl (Adeline Matute ., DENIZ) Assessment and Plan 66 y/o woman here with encephalopathy due to hypernatremia and elevated ammonia secondary to cirrhosis. Hx DM, Cirrhosis, esophageal varices, pancytopenia, dementia. Pt was recently admitted for worsening anemia and transfused 2 U PRBC 04/21 prior to undergoing and EGD which revealed varices due to portal HTN. She had initially presented with frequent falls only, however, initial CBC was abnormal leading to the above diagnosis. She was eventually discharged to a rehab facility due to ongoing gait dysfunction. She was sent to the ER as staff reported that she was lethargic and confused. The pt was somnolent at the time of arrival in the ER and cannot provide any additional information or adequately follow commands. 1) AMS - hypernatremia likely due to dehydration nearly corrected to normal without improvement in MS. Now that her ammonia has been trending down for a second day and her mentation has vastly improved, it points to her ammonia level as the source of her AMS. Fluids discontinued, lactulose BID. There is no clear evidence of infection - her WBC count is WNL where as she is normally neutropenic. Her UA is neg, she does not have abdominal tenderness and a recent CT abdomen did not reveal significant ascites. The pt does not display nuchal rigidity, photophobia or other signs of meningitis. 2) Pancytopenia - recent PRBC transfusion - this has improved from recent and will be trended. 4) Bradycardia resolved - resume nadolol 5) The pt's CXR is equivocal - repeat x ray favors atelectasis over pneumonia. 6) DM - Blood sugars were elevated, managed with Lantus and sliding scale To [facility] Wednesday or Wednesday when a bed opens up. Full code - SCDs, no heparin due to thrombocytopenia (Adeline Matute ., DENIZ) Attending Attestation: Pt seen/examined, chart reviewed, care plan d/w DENIZ Spenceah Giovani. I agree w/ the balbuena components of her documentation. Pt w/o complaints today. Feeling well, no pain in any location. Eating fine. Mental status at baseline. VSS no fever gen - nad skin - mild pallor heart - RRR, s1, s2, 2/6 CHIOMA lungs - mild fine dry rales left base abd - soft, NT ext - trace edema b/l neuro - no asterixis A/P: 1. hepatic encephalopathy - resolved clinically. cont lactulose, titrate 2-3 BMs/day 2. hypernatremic dehydration - resolved 3. iron def anemia - recent ferritin level <10. ferrous sulfate BID dispo - accepted at [facility] but no bed PT, AUGUSTIN alan - could she possibly return home? await dayanna BOOTH MD (Aidan Booth MD)
[2017-05-01] MEDS: ATORVASTATIN 40 MG TAB PO SCH (20:53)
[2017-05-01] MEDS: ROPINIROLE HCL 0.25 MG TAB PO SCH (20:53)
[2017-05-01 23:58] VITALS: BP 116/54; PULSE 72; TEMP 36.9; O2SAT 95
[2017-05-02 07:28] VITALS: BP 129/51; PULSE 72; TEMP 36.6; O2SAT 96
[2017-05-02 08:00] LABS: HEMATOCRIT 28.8 % (37-47); MEAN CORPUSCULAR HEMOGLOBIN 30.4 pg (25-34); RED BLOOD COUNT 3.13 M/uL (4.2-5.4); WHITE BLOOD COUNT 3.65 K/uL (4.8-10.8)
[2017-05-02 08:30] LABS: MEAN PLATELET VOLUME 9.9 fL (7.4-10.4); PLATELET COUNT 54 K/uL (130-400)
[2017-05-02 08:31] LABS: PLT ESTIMATE DECREASED
[2017-05-02 08:41] LABS: BUN/CREATININE RATIO 10.7 (10-20); CREATININE 0.69 mg/dl (0.60-1.20); POTASSIUM 3.8 mmol/L (3.5-5.1)
[2017-05-02] MEDS: INSULIN ASPART 100 UNITS/ML 3 ML PEN SC SCH ×4 (09:01→21:19)
[2017-05-02] MEDS: LACTULOSE SYRUP 30 GM/45 ML UDP PO SCH ×2 (09:02→21:16)
[2017-05-02] MEDS: INSULIN GLARGINE SOLOSTAR 100 UNITS/ML 3 ML PEN SC SCH ×2 (09:02→21:20)
[2017-05-02] MEDS: PANTOprazole SOD 40 MG TAB PO SCH (09:02)
[2017-05-02] MEDS: CLOPIDOGREL BISULFATE 75 MG TAB PO SCH (09:02)
[2017-05-02] MEDS: ASPIRIN 81 MG ECTAB PO SCH (09:02)
[2017-05-02] MEDS: FERROUS SULFATE 325 MG TAB PO SCH ×2 (09:02→16:51)
[2017-05-02] MEDS ORDERED: DEXTROSE 5% 1000ML 1,000 ML IV SCH (12:45)
[2017-05-02 15:00] VITALS: BP 138/66; PULSE 80; TEMP 36.6; O2SAT 96
[2017-05-02 16:00] VITALS: O2SAT 96
--- NOTE | 2017-05-02 18:06 | Progress Note ---
Subjective Date of Service: May 02, 2017. Subjective Pt evaluation today including: conversation w/ patient, conversation w/ family (sister at bedside), physical exam, chart review, lab review Pain: denies PO Intake: fair; admits to poor water intake Voiding: no incontinence anxious to d/c out of hospital denies complaints feels good sister says how "good she (Ms. Rangel) looks today!" Problem List Medical Problems: (1) Abdominal pain Status: Acute (2) Anemia Status: Acute (3) Back pain Status: Acute (4) Cat bite of left hand with infection Status: Acute (5) Cellulitis of left hand Status: Acute (6) Colitis Status: Acute (7) Dehydration Status: Acute (8) Epistaxis Status: Acute (9) Fever Status: Acute (10) GI bleeding Status: Acute (11) Head injury Status: Acute (12) Head injury Status: Acute (13) Headache Status: Acute (14) Hypernatremia Status: Acute (15) Weakness Status: Acute Review of Systems Constitutional: No fever Respiratory: No shortness of breath Cardiac: No chest pain Abdomen: No pain Objective Vital Signs Date Time Temp Pulse Resp B/P (MAP) Pulse Ox O2 Delivery O2 Flow Rate FiO2 05/02/17 16:00 96 Room Air 05/02/17 15:00 36.6 80 16 138/66 (90) 96 Room Air 05/02/17 09:00 Room Air 05/02/17 07:28 36.6 72 18 129/51 (77) 96 Room Air 05/02/17 00:30 Room Air 05/01/17 23:58 36.9 72 18 116/54 (74) 95 Room Air Physical Exam General Appearance: no apparent distress ENT: + pertinent finding (MM dry) Neck: no JVD Respiratory/Chest: lungs clear, no respiratory distress, no accessory muscle use, + rales (minimal, left base) Cardiovascular: regular rate, rhythm, no gallop, no murmur Abdomen: normal bowel sounds, non tender, soft, no organomegaly Extremities: + pedal edema (trace-1+ b/l ) Neurologic/Psychiatric: alert, oriented x 3, + pertinent finding (no asterixis ) Laboratory Results Last 24 Hours Test 05/01/17 20:41 05/02/17 06:54 05/02/17 07:47 05/02/17 11:38 Bedside Glucose 166 mg/dl 100 mg/dl 162 mg/dl White Blood Count 3.65 K/uL Red Blood Count 3.13 M/uL Hemoglobin 9.5 g/dL Hematocrit 28.8 % Mean Corpuscular Volume 92.0 fL Mean Corpuscular Hemoglobin 30.4 pg Mean Corpuscular Hemoglobin Concent 33.0 g/dl RDW Standard Deviation 59.9 fL RDW Coefficient of Variation 18.2 % Platelet Count 54 K/uL Mean Platelet Volume 9.9 fL Platelet Estimate DECREASED Sodium Level 147 mmol/L Potassium Level 3.8 mmol/L Chloride Level 117 mmol/L Carbon Dioxide Level 22 mmol/L Anion Gap 8.0 mmol/L Blood Urea Nitrogen 7 mg/dl Creatinine 0.69 mg/dl Est Creatinine Clear Calc Drug Dose 83.8 ml/min Estimated GFR () 104.4 Estimated GFR (Non- 90.1 BUN/Creatinine Ratio 10.7 Random Glucose 99 mg/dl Calcium Level 8.0 mg/dl Test 05/02/17 16:26 Bedside Glucose 194 mg/dl Assessment and Plan 66yo female: 1. hepatic encephalopathy - resolved clinically. cont lactulose, titrate 2-3 BMs/day 2. hypernatremic dehydration - improved, but Na still high. Pt admits to poor water intake, taking <1000cc/day. D5W - 100cc/hr x 1 L. BMP am. 3. iron def anemia - recent ferritin level <10. ferrous sulfate BID 4. RLS - may be due in part to #3. Cont dopamine agent at HS. 5. T2DM - restart metformin 500mg BID. Continue lantus as is. Control acceptable. 6. cirrhosis - compensated with no volume overload state. Resume nadalol. 7. DVT proph - chemical means contraindicated due to thrombocytopenia. 8. 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 9. h/o COPD - not active at this time. 10. h/o dementia - noted. 11. h/o Luevano's esophagus - PPI. 12. h/o autoimmune hepatitis vs hemochromatosis - iron studies not suggestive of latter. THOMAS in 07/2016 was negative. Is cirrhosis 2nd to VELEZ?? OT and PT still recommending inpatient rehab accepted at [facility] await bed there, hopefully in am Continued [facility] stay due to: ambulation difficulties, multiple IV medications needed Discharge planning: rehab hospital
[2017-05-02] MEDS ORDERED: NADOLOL 40 MG TAB PO ONE (19:00)
[2017-05-02] MEDS: METFORMIN HCL 500 MG TAB PO SCH (21:15)
[2017-05-02] MEDS: ROPINIROLE HCL 0.25 MG TAB PO SCH (21:15)
[2017-05-02] MEDS: ATORVASTATIN 40 MG TAB PO SCH (21:15)
[2017-05-03] VITALS: BP 131/71; PULSE 69; TEMP 36.8; O2SAT 96
[2017-05-03 07:40] LABS: BUN/CREATININE RATIO 7.7 (10-20); CALCIUM 8.3 mg/dl (8.5-10.1); CREATININE 0.71 mg/dl (0.60-1.20); MAGNESIUM 1.8 mg/dl (1.8-2.4); POTASSIUM 3.8 mmol/L (3.5-5.1)
[2017-05-03 07:43] LABS: ALB/GLOB RATIO 0.7 (0.9-2)
[2017-05-03] MEDS: FERROUS SULFATE 325 MG TAB PO SCH ×2 (07:50→17:19)
[2017-05-03] MEDS: METFORMIN HCL 500 MG TAB PO SCH ×2 (07:50→17:19)
[2017-05-03] MEDS: CLOPIDOGREL BISULFATE 75 MG TAB PO SCH (07:50)
[2017-05-03] MEDS: PANTOprazole SOD 40 MG TAB PO SCH (07:50)
[2017-05-03] MEDS: ASPIRIN 81 MG ECTAB PO SCH (07:50)
[2017-05-03] MEDS: LACTULOSE SYRUP 30 GM/45 ML UDP PO SCH (07:50)
[2017-05-03] MEDS: INSULIN ASPART 100 UNITS/ML 3 ML PEN SC SCH ×3 (07:51→16:30)
[2017-05-03] MEDS: INSULIN GLARGINE SOLOSTAR 100 UNITS/ML 3 ML PEN SC SCH (07:55)
[2017-05-03 07:58] VITALS: BP 118/76; PULSE 62; TEMP 36.8; O2SAT 95
[2017-05-03] MEDS ORDERED: NADOLOL 40 MG TAB PO SCH (09:00)
[2017-05-03 09:14] VITALS: O2SAT 95
--- NOTE | 2017-05-03 10:49 | Nephrology Consultation ---
Nephrology Consultation Date & Providers Date of Consultation: May 03, 2017. Primary Care Provider: Maury Bond M.D. Referring Provider: Reason for Consultation Hypernatremia History of Present Illness Ms. Rangel is a 66 year old white female who is seen at the request of Dr. Booth for evaluation of hypernatremia. Medical records in the hospital EMR were reviewed today and are summarized as follows: Ms. Rangel is . She lives with her son in [place]. Her medical history is significant for cirrhosis, esophageal varices, pancytopenia, AODM and dementia. She was last hospitalized at [facility] 04/17/17 - 04/21/17 with weakness and anemia. EGD revealed large esophageal varices. Patient was transfused and discharged to [facility] for physical therapy. She was readmitted to the hospital 6 days later with mental status changes, dehydration and hypernatremia (Serum sodium 151). Evaluation revealed hepatic encephalopathy w/ serum ammonia level 113. Patient was treated w/ Lactulose and IV fluids. Her mental status has improved but she has persistent hypernatremia w/ serum sodium 147. Past Medical/Surgical History Medical: # Cirrhosis # Esophageal varices # Pancytopenia # AODM # Dementia Allergies Coded Allergies: Methyl Salicylate (Verified Allergy, Unknown, RASH, 04/17/17) Nickel (Verified Allergy, Unknown, RASH, 04/17/17) Zinc (Verified Allergy, Unknown, RASH, 04/17/17) Diphenhydramine (Verified Adverse Reaction, Intermediate, BURNING EYES, DIZZY,BLISTERS, 04/17/17) Inpatient Medications Current Inpatient Medications Medications (Trade) Dose Ordered Sig/Kole Route Start Time Stop Time Status Last Admin Dose Admin Acetaminophen (Tylenol Tab) 650 mg Q4H PRN PO 04/27/17 21:30 05/27/17 21:29 Al Hydrox/Mg Hydrox/Simethicone (Maalox Max Susp) 15 ml Q4H PRN PO 04/27/17 21:30 05/27/17 21:29 Magnesium Hydroxide (Milk Of Magnesia Susp) 30 ml Q12H PRN PO 04/27/17 21:30 05/27/17 21:29 Ondansetron HCl (Zofran Inj) 4 mg Q6H PRN IV 04/27/17 21:30 05/27/17 21:29 Polyethylene (Miralax Powder Packet) 17 gm DAILY PRN PO 04/27/17 21:30 05/27/17 21:29 Aspirin (Ecotrin Tab) 81 mg QAM PO 04/28/17 09:00 05/28/17 08:59 05/03/17 07:50 81 MG Atorvastatin Calcium (Lipitor Tab) 40 mg HS PO 04/28/17 21:00 05/28/17 20:59 05/02/17 21:15 40 MG Clopidogrel Bisulfate (plAVix TAB) 75 mg DAILY PO 04/28/17 09:00 05/28/17 08:59 05/03/17 07:50 75 MG Folic Acid (Folvite Tab) 1 mg QAM PO 04/28/17 09:00 05/28/17 08:59 05/03/17 07:50 1 MG Pantoprazole Sodium (Protonix Tab) 40 mg QAM PO 04/28/17 09:00 05/28/17 08:59 05/03/17 07:50 40 MG Ropinirole HCl (Requip Tab) 0.5 mg HS PO 04/28/17 21:00 05/28/17 20:59 05/02/17 21:15 0.5 MG Insulin Aspart (novoLOG ASPART) SLIDING SCALE G... ACHS SC 04/27/17 23:00 05/27/17 22:59 05/02/17 21:19 5 UNITS Glucose (Glucose 40% Gel) 15-30 GRAMS 15 GRAMS... UD PRN PO 04/27/17 23:00 05/27/17 22:59 Glucose (Glucose Chew Tab) 4-8 Tablets 4 Tabl... UD PRN PO 04/27/17 23:00 05/27/17 22:59 Dextrose (Dextrose 50% 50ML Syringe) 25-50ML OF 50% DW IV FOR... UD PRN IV 04/27/17 23:00 05/27/17 22:59 04/28/17 00:12 25 ML Glucagon (Glucagon Inj) 1 mg UD PRN SQ 04/27/17 23:00 05/27/17 22:59 Lactulose (Chronulac Syrup) 30 gm BID PO 04/28/17 10:00 05/28/17 09:59 05/03/17 07:50 30 GM Insulin Glargine (Lantus Solostar Pen) 38 units BID SC 04/29/17 21:00 05/29/17 20:59 05/03/17 07:55 38 UNITS Ferrous Sulfate (Feosol Tab) 325 mg BIDM PO 05/02/17 08:00 06/01/17 07:59 05/03/17 07:50 325 MG Nadolol (Corgard Tab) 20 mg QAM PO 05/03/17 09:00 06/02/17 08:59 05/03/17 07:50 20 MG Metformin HCl (Glucophage Tab) 500 mg BIDM PO 05/02/17 19:00 06/01/17 18:59 05/03/17 07:50 500 MG Family History CHF (congestive heart failure) Diabetes mellitus FHx: stroke Heart disease Negative for CKD or electrolyte disorders Social History Smoking Status: Former Smoker Drug Use: none Marital Status: Housing Status: lives with family Occupation: retired . Lives w/ son. Retired. Former smoker Review of Systems Constitutional: No fever Respiratory: No cough Cardiovascular: No chest pain Abdomen: No pain, No nausea Genitourinary - Female: No dysuria A complete review of systems was performed. Pertinent positives are noted above. All other systems are negative. Physical Exam Date Time Temp Pulse Resp B/P (MAP) Pulse Ox O2 Delivery O2 Flow Rate FiO2 05/03/17 09:14 95 Room Air 05/03/17 08:00 Room Air 05/03/17 07:58 36.8 62 16 118/76 (90) 95 Room Air 05/03/17 00:00 Room Air 05/03/17 00:00 36.8 69 20 131/71 (91) 96 Room Air 05/02/17 20:00 Room Air 05/02/17 16:00 96 Room Air 05/02/17 15:00 36.6 80 16 138/66 (90) 96 Room Air General Appearance: no apparent distress Head: normocephalic, atraumatic Eyes: PERRL, EOMI Neck: no adenopathy, no JVD Respiratory/Chest: lungs clear, no respiratory distress Cardiovascular: regular rate, rhythm Abdomen/GI: soft (distended, nontender) Extremities/Musculoskelatal: + pertinent finding (trace pretibial pitting edema ) Neurologic/Psych: alert, oriented x 3 Laboratory Results Last 24 Hours Test 05/02/17 11:38 05/02/17 16:26 05/02/17 20:49 05/03/17 06:43 Bedside Glucose 162 mg/dl 194 mg/dl 251 mg/dl Sodium Level 148 mmol/L Potassium Level 3.8 mmol/L Chloride Level 116 mmol/L Carbon Dioxide Level 23 mmol/L Anion Gap 9.0 mmol/L Blood Urea Nitrogen 6 mg/dl Creatinine 0.71 mg/dl Est Creatinine Clear Calc Drug Dose 81.5 ml/min Estimated GFR () 102.2 Estimated GFR (Non- 88.1 BUN/Creatinine Ratio 7.7 Random Glucose 87 mg/dl Calcium Level 8.3 mg/dl Magnesium Level 1.8 mg/dl Total Bilirubin 1.3 mg/dl Aspartate Amino Transf (AST/SGOT) 87 U/L Alanine Aminotransferase (ALT/SGPT) 36 U/L Alkaline Phosphatase 148 U/L Total Protein 5.8 gm/dl Albumin 2.3 gm/dl Globulin 3.5 gm/dl Albumin/Globulin Ratio 0.7 Test 05/03/17 07:29 Bedside Glucose 99 mg/dl Impression (1) Hypernatremia (2) Dehydration (3) Cirrhosis (4) Increased ammonia level Ms. Rangel was admitted to the hospital w/ MS changes, dehydration and hypernatremia. She had metabolic encephalopathy related to cirrhosis. Her dehydration and hypernatremia have improved w/ IV hydration. Recommendations Persistent hypernatremia is reflective of patients poor free water intake. She has not been polyuric to suggest CDI/NDI. Her mental status has improved following treatment of her hepatic encephalopathy. Recommend that patient drink 2 - 3 L free water daily. Discussed the importance of checking her urine each time she voids to ensure that it is clear (dilute). This will provide her with a way to determine whether to increase her free water intake. Patient voiced understanding. No further Nephrology evaluation needed at this time. Will sign off. Please have patient follow up with her PCP within 2 weeks of hospital discharge for ongoing monitoring of electrolyte balance. One hour visit provided to the patient today. This was necessary to review medical records, perform physical exam and discuss options to maintain adequate hydration. Over 50% of time provided was spent on education and coordination of care.
--- NOTE | 2017-05-03 11:50 | Hospitalist Progress Note ---
Hospitalist Progress Note Date of Service May 03, 2017. Objective Vital Signs Date Time Temp Pulse Resp B/P (MAP) Pulse Ox O2 Delivery O2 Flow Rate FiO2 05/03/17 09:14 95 Room Air 05/03/17 08:00 Room Air 05/03/17 07:58 36.8 62 16 118/76 (90) 95 Room Air 05/03/17 00:00 Room Air 05/03/17 00:00 36.8 69 20 131/71 (91) 96 Room Air 05/02/17 20:00 Room Air 05/02/17 16:00 96 Room Air 05/02/17 15:00 36.6 80 16 138/66 (90) 96 Room Air Laboratory Results Last 24 Hours Test 05/02/17 16:26 05/02/17 20:49 05/03/17 06:43 05/03/17 07:29 Bedside Glucose 194 mg/dl 251 mg/dl 99 mg/dl Sodium Level 148 mmol/L Potassium Level 3.8 mmol/L Chloride Level 116 mmol/L Carbon Dioxide Level 23 mmol/L Anion Gap 9.0 mmol/L Blood Urea Nitrogen 6 mg/dl Creatinine 0.71 mg/dl Est Creatinine Clear Calc Drug Dose 81.5 ml/min Estimated GFR () 102.2 Estimated GFR (Non- 88.1 BUN/Creatinine Ratio 7.7 Random Glucose 87 mg/dl Calcium Level 8.3 mg/dl Magnesium Level 1.8 mg/dl Total Bilirubin 1.3 mg/dl Aspartate Amino Transf (AST/SGOT) 87 U/L Alanine Aminotransferase (ALT/SGPT) 36 U/L Alkaline Phosphatase 148 U/L Total Protein 5.8 gm/dl Albumin 2.3 gm/dl Globulin 3.5 gm/dl Albumin/Globulin Ratio 0.7 Assessment and Plan Hypernatremia - Nephrology saw pt today and has signed off: Persistent hypernatremia is reflective of patients poor free water intake. She has not been polyuric to suggest CDI/NDI. Her mental status has improved following treatment of her hepatic encephalopathy. Recommend that patient drink 2 - 3 L free water daily. hepatic encephalopathy- Resolved
--- NOTE | 2017-05-03 12:35 | Gastrointestinal Consultation ---
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 She is usually managed by DENIZ Wiseman, last office visit 06/2016, missed 04/27/17 appt. She was last admitted less than 3 weeks ago for anemia, was given 2U PRBC transfusion prior to EGD eval Hgb then was 6 improved to 10. Hgb at this admission 9-10. She hasn't had any s/s of GI bleeding such as hematemesis, dark tarry stools. Her LFTs are: Tbili 1.3, AST 87 , ALT 36, AP 118. Ammonia level initially elevated at 113, she had been moving bowels daily, now level 53. She is on Lactulose 30g BID. Chem panel showed hypernatremia 148, renal function ok. CT head, CXR grossly unremarkable. She is AAOx3 in my exam today, no signs of asterixis. Denies any CP, SOB, abd pain, distension, jaundice, + leg edema. Last EGD 04/2017 - varices, portal HTN Last Colonoscopy 05/2016 - diverticulosis, non bleeding AVMs on ascending colon Past Medical/Surgical History Medical Problems: (1) Abdominal pain Status: Acute (2) Anemia Status: Acute (3) Back pain Status: Acute (4) Cat bite of left hand with infection Status: Acute (5) Cellulitis of left hand Status: Acute (6) Colitis Status: Acute (7) Dehydration Status: Acute (8) Epistaxis Status: Acute (9) Fever Status: Acute (10) GI bleeding Status: Acute (11) Head injury Status: Acute (12) Head injury Status: Acute (13) Headache Status: Acute (14) Hypernatremia Status: Acute (15) Weakness Status: Acute Past Medical History: See above Past Surgical History: T&A, hysterectomy Family History CHF (congestive heart failure) Diabetes mellitus FHx: stroke Heart disease Social History Smoking Status: Former Smoker Alcohol Use: none Drug Use: none Marital Status: Housing Status: other Occupation Status: retired Allergies Coded Allergies: Methyl Salicylate (Verified Allergy, Unknown, RASH, 04/17/17) Nickel (Verified Allergy, Unknown, RASH, 04/17/17) Zinc (Verified Allergy, Unknown, RASH, 04/17/17) Diphenhydramine (Verified Adverse Reaction, Intermediate, BURNING EYES, DIZZY,BLISTERS, 04/17/17) Current Medications Home Meds and Scripts Medications Dose Route/Sig Max Daily Dose Days Date Category Dose Instructions Gabapentin 300 Mg Cap 300 Mg PO BID 30 05/01/17 Rx Lactulose 30 Gm/45 Ml Syrp 30 Ml PO BID 30 05/01/17 Rx Docusate Sodium 100 Mg Cap 100 Mg PO BID 04/27/17 Reported Clopidogrel (Clopidogrel Bisulfate) 75 Mg Tab 75 Mg PO DAILY 04/27/17 Reported Requip (Ropinirole Hydrochloride) 0.5 Mg Tab 0.5 Mg PO HS 04/27/17 Reported Lisinopril 2.5 Mg Tab 2.5 Mg PO DAILY 04/27/17 Reported Voltaren 1% Top Gel (Diclofenac Sodium (Topical)) 1 % Gel 1 Dose EXT QID 04/21/17 Rx apply to right upper chest wall (around costochondral junction of ribs 3,4) QID Corgard (Nadolol) 20 Mg Tab 1 Tab PO DAILY 30 04/21/17 Rx Refresh (Carboxymethylcellulose Sodium) 1 % Randy 1 Drop OPB QID PRN 06/05/16 Reported Preservision Areds 2 (Multiple Vitamins W/ Minerals) 1 Cap Cap 1 Cap PO BID 05/21/16 Reported Protonix (Pantoprazole Sodium) 40 Mg Tab 40 Mg PO QAM 05/21/16 Reported Glucophage (Metformin Hcl) 1,000 Mg Tab 1,000 Mg PO BID 05/06/16 Reported Remeron (Mirtazapine) 30 Mg Tab 30 Mg PO HS 05/06/16 Reported Folvite (Folic Acid) 1 Mg Tab 1 Mg PO QAM 05/06/16 Reported Aspirin Ec (Aspirin) 81 Mg Tab 81 Mg PO QAM 05/06/16 Reported Novolin 70/30 (Insulin Human Isoph/Insulin Regular) Susp 75 Units SC AMPM 03/18/16 Reported Requip (Ropinirole HCl) 1 Mg Tab 1 Mg PO HS PRN 03/18/16 Reported Mag-Ox (Magnesium Oxide) 400 Mg Tab 400 Mg PO QAM 04/02/15 Reported Vitamin D3 (Cholecalciferol) 2,000 Unit Tab 2,000 Interunit PO QAM 11/16/13 Reported Donepezil Hcl (Donepezil Hydrochloride) 5 Mg Tab 5 Mg PO HS 11/16/13 Reported Lipitor (Atorvastatin) 40 Mg Tab 40 Mg PO HS 11/16/13 Reported Trazodone (Trazodone HCl) 50 Mg Tab 50 Mg PO HS 05/10/11 Reported Neurontin (Gabapentin) 300 Mg Cap 300 Mg PO TID 05/21/09 Reported Review of Systems Constitutional: No fever, No chills Respiratory: No cough, No shortness of breath Cardiac: No chest pain Abdomen: No pain, No nausea, No vomiting, No diarrhea, No GI bleeding Skin: No rash, No itch, No jaundice Physical Exam Date Time Temp Pulse Resp B/P (MAP) Pulse Ox O2 Delivery O2 Flow Rate FiO2 05/03/17 09:14 95 Room Air 05/03/17 08:00 Room Air 05/03/17 07:58 36.8 62 16 118/76 (90) 95 Room Air 05/03/17 00:00 Room Air 05/03/17 00:00 36.8 69 20 131/71 (91) 96 Room Air 05/02/17 20:00 Room Air 05/02/17 16:00 96 Room Air 05/02/17 15:00 36.6 80 16 138/66 (90) 96 Room Air General Appearance: WD/WN, no apparent distress Eyes: normal inspection, PERRL, EOMI Neck: supple, no JVD, trachea midline Respiratory/Chest: normal breath sounds, no respiratory distress, no accessory muscle use Cardiovascular: regular rate, rhythm, no gallop, no murmur Abdomen: normal bowel sounds, non tender, soft Extremities: no pedal edema, no calf tenderness, + swelling (+1 pitting edema on bilateral LE) Neurologic/Psych: alert, normal mood/affect, oriented x 3 Skin: normal color, no jaundice, no rash Laboratory Results Last 24 Hours Test 05/02/17 16:26 05/02/17 20:49 05/03/17 06:43 05/03/17 07:29 Bedside Glucose 194 mg/dl 251 mg/dl 99 mg/dl Sodium Level 148 mmol/L Potassium Level 3.8 mmol/L Chloride Level 116 mmol/L Carbon Dioxide Level 23 mmol/L Anion Gap 9.0 mmol/L Blood Urea Nitrogen 6 mg/dl Creatinine 0.71 mg/dl Est Creatinine Clear Calc Drug Dose 81.5 ml/min Estimated GFR () 102.2 Estimated GFR (Non- 88.1 BUN/Creatinine Ratio 7.7 Random Glucose 87 mg/dl Calcium Level 8.3 mg/dl Magnesium Level 1.8 mg/dl Total Bilirubin 1.3 mg/dl Aspartate Amino Transf (AST/SGOT) 87 U/L Alanine Aminotransferase (ALT/SGPT) 36 U/L Alkaline Phosphatase 148 U/L Total Protein 5.8 gm/dl Albumin 2.3 gm/dl Globulin 3.5 gm/dl Albumin/Globulin Ratio 0.7 Test 05/03/17 11:28 Bedside Glucose 115 mg/dl Impression Patient is a 66 year old female w NAFLD, hemochromatosis cirrhosis seen for confusion. Elevated NH3 on admission but decreasing now. She is hypernatremic, no renal issues. No signs of infections, head CT, CXR normal. No signs of ascites on exam. Currently AAOx3, no asterixis on exam. MELD 9 Plan - Consider full infectious workup (urine, blood cx, diagnostic paracentesis to r /o SBP) if confusion re-occur. For now continue Lactulose and titrate for goal 3 -5BMs daily. May also add Xifaxan 550mg BID if Lactulose coverage not enough - Continue Nadolol 20mg daily, monitor BP, HR; Protonix 40mg BID. - UTD on EGD and Colonoscopy evals. - Low Na (2g diet). - F/U in outpt GI clinic, will eval then if need to start her on diuretic for edema or not.
--- NOTE | 2017-05-03 12:45 | Discharge Instructions ---
Discharge Instructions Date of Service May 03, 2017. Admission Reason for Admission: Altered Mental Status, Dehydration Discharge Discharge Diagnosis / Problem: Hepatic encephalopathy, hypernatremia Discharge Goals Goal(s): Decrease discomfort, Improve function, Increase independence, Improve disease control Activity Recommendations Activity Level: Ambulates in room, Assistance Required (Rolling walker) Therapies: Physical Therapy, Occupational Therapy Lifting Limitations: gradually increase as tolerated Shower/Bathe: no limitations . Additional Information Patient informed of condition: Yes Advance Directives: No DNR: No Level of Care: Acute Rehab Communicable Disease: No Prognosis: Improving Poole Catheter: No Instructions / Follow-Up Instructions / Follow-Up Instructions / Follow-Up You were admitted to [facility] with altered mental status secondary to dehydration. During your stay here you were treated with intravenous fluids and other supportive care. Nephrology saw you for an elevated sodium level; you should continue to drink 2- 3 L of water a day. Medications Continue taking your medications as prescribed. Appointments: Follow up with physician at rehab facility within 24-28 hours of discharge. Follow up with GI for VELEZ/Autoimmune hepatitis/Hereditary Hemochromatosis, Cirrhosis, portal HTN in 2-3 weeks, may start diuretic then 66yo female: 1. Hepatic encephalopathy - resolved clinically. cont lactulose, titrate 3-5 BMs/day, GI recommends consideration to add on Xifaxin 550mg po bid if not achieving goal with lactulose alone 2. Hypernatremic dehydration - improved, but Na still high at 148 on discharge. Pt admits to poor water intake, taking <1000cc/day. D5W was given Nephrology consultation obtained and thinks purely from poor intake of free water; recommend drinking 2-3 L daily of free water 3. Iron def anemia - recent ferritin level <10. With h/o acute on chronic anemia due to suspected GI bleeding in 04/2017 requiring 2 units PRBCs transfused. hgb here stable at 9-10 ferrous sulfate bid, docusate 4. RLS - may be due in part to #3. Cont dopamine agent at HS. 5. T2DM - restart metformin 500mg BID. Continue lantus as is and SSI. Control acceptable. 6. cirrhosis/portal HTN/moderate esophageal varices secondary to VELEZ/AIH/HH - compensated with no volume overload state. Resumed nadalol (after being held for mild bradycardia on admission which has resolved) 7. DVT proph - chemical means contraindicated due to thrombocytopenia. 8. 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 stable monitor CBC periodically 9. h/o COPD - not active at this time. 10. h/o dementia vs intellectual disability? - noted. -supportive care -was on donepezil but stopped here due to it being extensively metabolized in the liver and she has significant liver disease 11. h/o Luevano's esophagus - PPI increased to bid, monitored with EGD surveillance by GI 12. h/o autoimmune hepatitis, hemochromatosis without significant Fe-avidity and not requiring phlebotomies dxd in 2007, VELEZ, MELD 9 currently, followed by GI OT and PT recommending inpatient rehab accepted at [facility] today Current Hospital Diet Patient's current hospital diet: AHA Diet (Heart Healthy), Diabetes Type 2 Diet , Low Sodium Diet (2gm Na) Discharge Diet Recommended Diet: AHA Diet (Heart Healthy), Low Sodium Diet (2gm Na), Diabetes Type 2 Diet Fluid Restriction: None (Asked to have pt drink 2-3 L of water per day for hypernatremia per nephrology) Procedures Procedures Performed: Chest x ray Head CT Pending Studies Studies pending at discharge: no Physician Orders On Transfer Special Precautions: Fall risk Dressing Changes: None IV Therapy: None Vital Signs: Daily Weigh: Daily POLST Discussion: Not Applicable Laboratory Results Hemoglobin A1c Test 03/24/17 14:55 Range/Units Estimated Average Glucose 160 mg/dl Hemoglobin A1c 7.2 H 4.5-5.6 % Lipid Panel Test 03/24/17 14:55 Range/Units Triglycerides Level 141 0-150 mg/dl Cholesterol Level 93 0-200 mg/dl HDL Cholesterol 31 mg/dl Cholesterol/HDL Ratio 3.0 LDL Cholesterol, Calculated 34 mg/dl Medical Emergencies . Who to Call and When: Medical Emergencies: If at any time you feel your situation is an emergency, please call 911 immediately. . Non-Emergent Contact Non-Emergency issues call your: Primary Care Provider Call Non-Emergent contact if: you have a fever, temperature is above 100.5, your pain is not controlled, your pain is worsening, you have any medication questions other concerns with your health. Call 911 or go directly to the Emergency Department if you experience any of the following: Chest pain, chest tightness, shortness of breath, abdominal pain , lightheadedness, dizziness, gastrointestinal bleeding, or have any other concerns regarding your health. . Past History Medical & Surgical History: (1) Altered mental status (2) Dehydration (3) Hypernatremia (4) Cirrhosis (5) Increased ammonia level (6) COPD (chronic obstructive pulmonary disease) (7) HTN (hypertension) (8) Fall . "Provider Documentation" section prepared by Lala Frey. . Core Measure Problem Core Measures: None
--- NOTE | 2017-05-03 12:48 | Discharge Summary ---
Discharge Summary Date of Service May 03, 2017. (Lizzette Suggs PA-C) Discharge Summary Admission Date: Apr 27, 2017 at 21:25 Discharge Date: May 01, 2017 Discharge Disposition: Rehab Principal Diagnosis: Altered mental status, Hypernatremia Problems/Secondary Diagnoses: Hepatic encephalopathy Hypernatremic dehydration - improved, but Na still high at 148 on discharge. Iron def anemia RLS T2DM cirrhosis/portal HTN/moderate esophageal varices secondary to VELEZ/AIH/HH pancytopenia h/o COPD h/o dementia vs intellectual disability? h/o Luevano's esophagus h/o autoimmune hepatitis vs hemochromatosis - iron studies not suggestive of latter. THOMAS in 07/2016 was negative. Immunizations: Have You Had Influenza Vaccine: Yes Influenza Vaccine Date: May 29, 2011 History of Tetanus Vaccine?: Yes Tetanus Immunization Date: Sep 29, 2005 History of Pneumococcal: No Pneumococcal Date: Mar 10, 2008 History of Hepatitis B Vaccine: No Procedures: CT HEAD WITHOUT CONTRAST (CT) CLINICAL HISTORY: Altered mental status COMPARISON STUDY: 04/17/2017 TECHNIQUE: Axial CT of the brain is performed from the vertex to the skull base. IV contrast was not administered for this examination. A dose lowering technique was utilized adhering to the principles of ALARA. CT DOSE: 638.56 mGycm FINDINGS: No intra or extra-axial mass lesions are visualized. There is no CT evidence of acute cortical infarction. There is no evidence of midline shift. There is no acute hemorrhage. No calvarial fractures are visualized. There are minimal white matter hypodensities likely on a small vessel basis. There is no evidence of pathologic ventricular dilatation. Findings again suggestive empty sella. There is no evidence of acute sinusitis IMPRESSION: No acute intracranial findings Electronically signed by: Cristhian Frost M.D. 04/27/2017 7:30 PM Dictated Date/Time: 04/27/2017 7:28 PM The status of this report is Signed. CHEST ONE VIEW PORTABLE CLINICAL HISTORY: 66 years-old Female presenting with Evaluate Fever/Sepsis. TECHNIQUE: Portable upright AP view of the chest was obtained. COMPARISON: 04/17/2017. FINDINGS: Atherosclerosis of aortic arch. Cardiac silhouette normal in size. Minimal left basilar opacity, stable to slightly increased from prior. No new focal infiltrate. No large effusion or pneumothorax. Postsurgical changes of the left humeral head and distal left clavicle. Upper abdomen normal. IMPRESSION: 1. Minimal left basilar opacity, most likely atelectasis. Aspiration or infection are less likely. Electronically signed by: Maury Lucas M.D. 04/27/2017 7:00 PM Dictated Date/Time: 04/27/2017 6:59 PM The status of this report is Signed. CHEST ONE VIEW PORTABLE CLINICAL HISTORY: possible pneumonia vs atelectasis ABNORMAL CHEST X-RAY COMPARISON STUDY: 04/27/2017 FINDINGS: The cardiac and mediastinal contours remain stable[. There is mild interstitial thickening. Increased left basal markings remain similar to the prior study and are likely atelectatic. There is no lobar consolidation. There is no significant pleural fluid. IMPRESSION: 1. Stable interstitial thickening 2. Left basilar opacities, likely atelectatic 3. No evidence of lobar consolidation Electronically signed by: Cristhian Frost M.D. 04/28/2017 12:12 PM Dictated Date/Time: 04/28/2017 11:59 AM The status of this report is Signed. Consultations: Nephrology Gastroenterology (Lizzette Suggs PA-C) Medication Reconciliation New Medications: Gabapentin (Gabapentin) 300 Mg Cap 300 MG PO BID for 30 Days, #60 DOSE Lactulose (Lactulose) 30 Gm/45 Ml Syrp 30 ML PO BID for 30 Days, #60 DOSE Ferrous Sulfate (Ferrous Sulfate) 325 Mg Tab 325 MG PO BIDM for 30 Days, TAB Insulin Aspart (Novolog Flexpen) 100 Units/Ml Inj 0 UNITS SC ACHS for 30 Days Insulin Glargine (Lantus Solostar) 100 Unit/Ml Inj 38 UNITS SC BID for 30 Days Metformin HCl (Metformin HCl) 500 Mg Tab 500 MG PO BIDM for 30 Days, TAB Changed Medications: Pantoprazole (Protonix) 40 Mg Tab 40 MG PO BID for 30 Days (Changed from: QAM) Continued Medications: Aspirin (Aspirin Ec) 81 Mg Tab 81 MG PO QAM Atorvastatin (Lipitor) 40 Mg Tab 40 MG PO HS Carboxymethylcellulose Sodium (Refresh) 1 % Randy 1 DROP OPB QID PRN for DRYNESS Cholecalciferol (Vitamin D3) 2,000 Unit Tab 2000 INTERUNIT PO QAM Diclofenac Sodium (Topical) (Voltaren 1% Top Gel) 1 % Gel 1 DOSE EXT QID, #100 GM apply to right upper chest wall (around costochondral junction of ribs 3,4) QID Docusate Sodium (Docusate Sodium) 100 Mg Cap 100 MG PO BID, CAP Ferrous Gluconate (Iron Supplement) 324 Mg Tab 324 MG PO DAILY, #30 TAB Folic Acid (Folvite) 1 Mg Tab 1 MG PO QAM Magnesium Oxide (Mag-Ox) 400 Mg Tab 400 MG PO QAM Multiple Vitamins W/ Minerals (Preservision Areds 2) 1 Cap Cap 1 CAP PO BID Nadolol (Corgard) 20 Mg Tab 1 TAB PO DAILY for 30 Days, #30 TAB 5 Refills Ropinirole Hydrochloride (Requip) 0.5 Mg Tab 0.5 MG PO HS Discontinued Medications: Clopidogrel Bisulfate (Clopidogrel) 75 Mg Tab 75 MG PO DAILY Donepezil Hydrochloride (Donepezil Hcl) 5 Mg Tab 5 MG PO HS Gabapentin (Neurontin) 300 Mg Cap 300 MG PO TID Insulin Isophan/Regular (Novolin 70/30) Susp 75 UNITS SC AMPM Lisinopril (Lisinopril) 2.5 Mg Tab 2.5 MG PO DAILY Metformin Hcl (Glucophage) 1,000 Mg Tab 1000 MG PO BID Mirtazapine (Remeron) 30 Mg Tab 30 MG PO HS Ropinirole (Requip) 1 Mg Tab 1 MG PO HS PRN for RLS Trazodone Hcl (Trazodone) 50 Mg Tab 50 MG PO HS Discharge Exam The patient was seen and examined this morning. Pts sister is present at bedside. She denies any acute complaints, has no pain, eating and drinking well , slept overnight. Discussion was held encouraging her to drink plenty of water per day to help keep sodium within normal limits. Pt is in agreement with discharge to [facility] today, although is hoping to get home soon. Review of Systems: Constitutional: No fever, No chills, No sweats, No fatigue Eyes: No diplopia ENT: No nasal symptoms, No trouble swallowing Respiratory: No cough, No shortness of breath, No dyspnea on exertion Cardiovascular: No chest pain, No palpitations Abdomen: No pain, No nausea, No vomiting, No diarrhea, No constipation Musculoskeletal: No joint pain Genitourinary - Female: No dysuria, No urinary frequency, No urinary urgency Genitourinary - Male: No hematuria Neurologic: No weakness, No numbness/tingling Endocrine: No fatigue Integumentary: No rash, No itch Physical Exam: General Appearance: WD/WN, no apparent distress Eyes: PERRL, EOMI ENT: hearing grossly normal, pharynx normal Neck: supple, no JVD Respiratory/Chest: lungs clear, no respiratory distress, no accessory muscle use Cardiovascular: regular rate, rhythm, no edema, no murmur Abdomen / GI: normal bowel sounds, non tender, soft Extremities: normal inspection, no calf tenderness, no pedal edema Neurologic/Psychiatric: alert, normal mood/affect, + pertinent finding ( oriented to place, year, but not specific date. Pt has tangential thoughts, but easily reoriented. Likely some underlying intellectual disability. ) Skin: normal color, warm/dry (Lizzette Suggs, NAMAN) Hospital Course History of Present Illness Source: patient 66 y/o F Hx DM, Cirrhosis, esophageal varices, pancytopenia, dementia. Pt was recently admitted for worsening anemia and transfused 2 U PRBCS 04/21 prior to undergoing and EGD which revealed varices due to portal HTN. She had initially presented with frequent falls only, however, inital CBC was abnormal leading to the above diagnosis. She was eventually discharged to a rehab facility due to ongoing gait dysfunction. She was sent to the ER today as staff reported that she was lethargic and confused. The pt is somnolent at the time of arrival in the ER and cannot provide any additional information or adequately follow commands. She does not exhibit a fever or additional signs of infection. Initial labs and exam are consistent with marked dehydration. Physical Exam Vital Signs Date Time Temp Pulse Resp B/P (MAP) Pulse Ox O2 Delivery O2 Flow Rate FiO2 04/27/17 20:20 52 20 120/55 97 Room Air 04/27/17 19:05 59 04/27/17 18:39 97 Room Air 04/27/17 18:39 97 Room Air 04/27/17 18:07 36.9 68 20 139/50 96 Room Air General Appearance: + pertinent finding (Somnolent, overweight, elderly female in no distress - she can follow some simple commands but tends to fall asleep) Eyes: normal inspection, PERRL ENT: normal ENT inspection, pharynx normal Neck: supple, no JVD Respiratory/Chest: chest non-tender, lungs clear, normal breath sounds Cardiovascular: regular rate, rhythm, no edema, no gallop, no JVD, no murmur, normal peripheral pulses Abdomen/GI: normal bowel sounds, non tender, soft, + pertinent finding (did not react to deep palpation ) Back: normal inspection, no CVA tenderness Extremities/Musculoskelatal: normal inspection, no calf tenderness, normal capillary refill, no pedal edema, normal range of motion Neurologic/Psych: + pertinent finding (Pt is somnolent - moves all extrems - pupils equal - cannot comply with exam) Skin: normal color, warm/dry, + pallor Hospital Course: 66 yo F who presented with altered mental status and was admitted with hepatic encephalopathy which was clinically resolved after lactulose administration and improved ammonia level. She was found to have hypernatremia which was secondary to poor oral intake, causing dehydration. Nephrology was consulted and recommended 2-3 L of free water intake daily. She also has hx of cirrhosis/ portal HTN/moderate esophageal varices secondary to EVLEZ/Autoimmune hepatitis and hereditary hemochromatosis for which she was on nadolol. Pancytopenia was secondary to cirrhosis but was stable throughout admission. The patients metal status improved and she was stable for discharge to [facility]. 1. Hepatic encephalopathy - resolved clinically. - cont lactulose, titrate 3-5 BMs/day, GI recommends consideration to add on Xifaxin 550mg po bid if not achieving goal with lactulose alone - PT/OT recommending inpatient rehab 2. Hypernatremic dehydration - improved, - Na = 148 on discharge. Pt admits to poor water intake, taking <1000cc/day. D5W was given but did not improve sodium. Nephrology consultation obtained and thinks from poor intake of free water; recommend drinking 2-3 L daily of free water - pt should check to make sure urine is clear and dilute and adjust water intake if needed. 3. Iron def anemia - recent ferritin level <10. With h/o acute on chronic anemia due to suspected GI bleeding in 04/2017 requiring 2 units PRBCs transfused. - hgb here stable at 9-10 - Continue ferrous sulfate daily 4. RLS - may be due in part to #3. Cont dopamine agent at HS. 5. T2DM - restart metformin 500mg BID. Continue lantus as is. Control acceptable. 6. cirrhosis/portal HTN/moderate esophageal varices secondary to VELEZ/AIH/HH - compensated with no volume overload state. Resumed nadalol (after being held for mild bradycardia on admission which has resolved) 7. DVT proph - chemical means contraindicated due to thrombocytopenia. 8. 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 stable monitor CBC periodically 9. h/o COPD - not active at this time. 10. h/o dementia vs intellectual disability? - noted. -supportive care, pt sister reports mother also had intellectual disability. 11. h/o Luevano's esophagus - PPI bid, monitored with EGD surveillance by GI 12. h/o autoimmune hepatitis vs hemochromatosis - iron studies not suggestive of latter. THOMAS in 07/2016 was negative. Is cirrhosis 2nd to VELEZ?? Disposition: accepted at [facility], discharge there today. Son to transport. Total Time Spent: Greater than 30 minutes This includes examination of the patient, discharge planning, medication reconciliation, and communication with other providers. (Lizzette Suggs, NAMAN) Discharge Instructions Please refer to the electronic Patient Visit Report (Discharge Instructions) for additional information. (Lizzette Suggs, NAMAN) Follow-Up Follow up with your Primary Care Provider at [facility] within 24-48 hours of arrival there. (Lizzette Suggs PA-C) Additional Copies To Maury Bond M.D. 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 Discussed with BRITTNEY Suggs and agree with findings and plan as documented in the note. Any exceptions or clarifications are listed here: Pt feels well, no complaints today Vitals reviewed NAD, sitting in chair, AAOx3 RRR no mgr CTAB no wcr Abd +BS soft NT ND Ext 1+ pitting edema bilat Neuro: moving all extremities, no asterixis 66 yo female with multiple medical problems as detailed in PA note, here with hepatic encephalopathy, now resolved with lactulose, moving bowels. -continue lactulose, other treatments all in detail as per PA note -dc to [facility] today Documented By: Shanice Yusuf (Shanice Yusuf MD)
[2017-05-03] MEDS ORDERED: NVLGIPEN SC (13:46)
[2017-05-03] MEDS ORDERED: FRRS300 PO (13:46)
[2017-05-03] MEDS ORDERED: GLC500 PO (13:46)
[2017-05-03] MEDS ORDERED: INSDGIPEN SC (13:46)
[2017-05-03] MEDS ORDERED: PANT40TA PO (13:46)
[2017-05-03 14:16] VITALS: BP 118/76; PULSE 62; TEMP 36.8; O2SAT 95
[2017-05-03 14:51] VITALS: BP 108/63; PULSE 63; TEMP 36.6; O2SAT 93
[2017-05-03 16:26] LABS: URINE APPEARANCE TURBID (CLEAR); URINE BILIRUBIN NEG (NEG); URINE COLOR YELLOW; URINE NITRITE POS (NEG); URINE PH 5.5 (4.5-7.5); URINE SPECIFIC GRAVITY 1.014 (1.000-1.030); UROBILINOGEN NEG (NEG)
[2017-05-03 16:50] LABS: MANUAL MICROSCOPIC REQUIRED? NO; REVIEW REQ? NO
== END 2017-05-03 18:00 | DRG 442 ==
LOC: EDBD 17:45 → C.EDB 17:46 → C.2T 21:25 → ENRESERV 21:45 → C.MS2W 04-30 13:50
PROVIDERS: ADMIT Internal Medicine; ATTEND Internal Medicine
DX: K72.90 Hepatic failure, unspecified without coma (principal); E87.0 Hyperosmolality and hypernatremia; K76.6 Portal hypertension; I85.10 Secondary esophageal varices without bleeding; D61.818 Other pancytopenia; J44.9 Chronic obstructive pulmonary disease, unspecified; E11.649 Type 2 diabetes mellitus with hypoglycemia without coma; I10 Essential (primary) hypertension; Z87.891 Personal history of nicotine dependence; F03.90 Unspecified dementia, unspecified severity, without behavioral disturbance, psychotic disturbance, mood disturbance, and anxiety; E86.0 Dehydration; K75.81 Nonalcoholic steatohepatitis (NASH); Z83.3 Family history of diabetes mellitus; D50.9 Iron deficiency anemia, unspecified; K22.70 Barrett's esophagus without dysplasia; K75.4 Autoimmune hepatitis; G25.81 Restless legs syndrome

== ENCOUNTER → 2017-05-19 | Outpatient (CLI) | payer OTHER ==
[~2017-05-19] MED LIST changes: +DOCU100C31 PO; -DONE1TAB25 PO; -FERR324T PO; +FRRS300 PO; -GABA-113 PO; +GLC500 PO; -GLUC1CAP33 PO; -HYDR-5688 PO; +INSDGIPEN SC; -INSU70IN2 SC; +LCTL45 PO; -METF-384 PO; -MIRT30TA PO; +NRN300 PO; +NVLGIPEN SC; +ROPI0.5T PO; -ROPI1TAB PO; -TRAZ50TA35 PO
[2017-05-19 12:44] LABS: HEMATOCRIT 30.3 % (37-47); MEAN CELL VOLUME 95.6 fL (80-100); MEAN CORPUSCULAR HEMOGLOBIN 31.9 pg (25-34); MEAN CORPUSCULAR HGB CONC 33.3 g/dl (32-36); RED BLOOD COUNT 3.17 M/uL (4.2-5.4); WHITE BLOOD COUNT 4.16 K/uL (4.8-10.8)
[2017-05-19 12:46] LABS: MEAN PLATELET VOLUME 10.6 fL (7.4-10.4); PLATELET COUNT 74 K/uL (130-400)
[2017-05-19 13:13] LABS: BLOOD UREA NITROGEN 6 mg/dl (7-18); BUN/CREATININE RATIO 8.2 (10-20); CALCIUM 8.3 mg/dl (8.5-10.1); CARBON DIOXIDE 26 mmol/L (21-32); CHLORIDE 115 mmol/L (98-107); CREATININE 0.73 mg/dl (0.60-1.20); GLUCOSE 92 mg/dl (70-99); POTASSIUM 4.1 mmol/L (3.5-5.1); SODIUM 146 mmol/L (136-145)
[2017-05-19 13:34] LABS: ESTIMATED AVERAGE GLUCOSE 134 mg/dl; HA1C FLAG Normal (Normal)
== END | disposition home or self-care (01) ==
LOC: C.LABPVFM 10:31
PROVIDERS: ATTEND Family Medicine
DX: D64.9 Anemia, unspecified (principal); E11.8 Type 2 diabetes mellitus with unspecified complications

== ENCOUNTER 2017-06-14 00:21 | Inpatient (IN) | payer OTHER ==
[2017-06-14] VITALS (10 sets, daily range): BP systolic 94–127; BP diastolic 52–65; PULSE 69–75; TEMP 37.2–38; O2SAT 92–99; Ht 165.1 cm; Wt 76.9 kg
[~2017-06-14] VITALS: Ht 165.1 cm; Wt 76.9 kg
--- NOTE | 2017-06-14 01:06 | EMERGENCY ROOM VISIT NOTE ---
History Report prepared by Noeibe: Nara Frey Under the Supervision of: Dr. Maggi Mckay D.O. First contact with patient: 00:38 Chief Complaint: ILLNESS Stated Complaint: PAIN IN HEAD,BELLY,PNEMONIA History of Present Illness The patient is a 66 year old female who presents to the Emergency Room with complaints of a constant cough beginning this morning. The patient states, "it feels like somebody beat me up". The patient has a history of pneumonia and notes her symptoms feel like when she last had it. She notes some chest pain and abdominal pain. The patient has a history of problems with her liver and abnormal ammonia levels. Per family member, the patient just started to seem confused this morning. The patient has been taking lactulose four times a day as prescribed. The patient has a history of cirrhosis. Source of History: patient Onset: this morning Position: other (global) Quality: other (cough) Timing: constant Modifying Factors (Relieving): other (none) Associated Symptoms: + chest pain, + abdominal pain Review of Systems See HPI for pertinent positives & negatives. A total of 10 systems reviewed and were otherwise negative. Past Medical & Surgical Medical Problems: (1) Altered mental status (2) cardiac history (3) Cirrhosis (4) COPD (chronic obstructive pulmonary disease) (5) Diabetes (6) HTN (hypertension) (7) Increased ammonia level (8) Neuropathy (9) Pneumonia Family History CHF (congestive heart failure) Diabetes mellitus FHx: stroke Heart disease Social History Smoking Status: Former Smoker Alcohol Use: none Drug Use: none Marital Status: Housing Status: other Occupation Status: retired Current/Historical Medications Scheduled Artificial Tear Solution (Artificial Tears), 2 DROPS OP QID Aspirin (Aspirin Ec), 81 MG PO QAM Atorvastatin (Lipitor), 40 MG PO HS Cholecalciferol (Vitamin D3), 2,000 INTERUNIT PO QAM Diclofenac Sodium (Topical) (Voltaren 1% Top Gel), 1 DOSE EXT QID Docusate Sodium (Docusate Sodium), 100 MG PO BID Ferrous Sulfate (Kp Ferrous Sulfate), 325 MG PO BID Folic Acid (Folvite), 1 MG PO QAM Furosemide (Lasix), 20 MG PO DAILY Gabapentin (Neurontin), 300 MG PO Q12 Insulin Aspart (Novolog Flexpen), UNITS SQ ACHS Insulin Glargine (Lantus Solostar), 38 UNITS SQ BID Lactulose (Chronulac), 30 ML PO TID Magnesium Oxide (Mag-Ox), 400 MG PO QAM Metformin HCl (Metformin HCl), 500 MG PO BIDM Metformin Hcl (Glucophage), 500 MG PO BIDM Multiple Vitamins W/ Minerals (Preservision Areds 2), 1 CAP PO BID Nadolol (Corgard), 20 MG PO DAILY Pantoprazole (Protonix), 40 MG PO BID Rifaximin (Xifaxan), 550 MG PO BID Ropinirole Hydrochloride (Requip), 0.5 MG PO HS [diclofenac gel], 1 APPLN EXT QID [eye promise], 1 TAB PO BID Scheduled PRN Carboxymethylcellulose Sodium (Refresh), 1 DROP OPB QID PRN for DRYNESS Allergies Coded Allergies: Methyl Salicylate (Verified Allergy, Unknown, RASH, 06/14/17) Nickel (Verified Allergy, Unknown, RASH, 06/14/17) Zinc (Verified Allergy, Unknown, RASH, 06/14/17) Diphenhydramine (Verified Adverse Reaction, Intermediate, BURNING EYES, DIZZY,BLISTERS, 06/14/17) Physical Exam Vital Signs Date Time Temp Pulse Resp B/P (MAP) Pulse Ox O2 Delivery O2 Flow Rate FiO2 06/14/17 03:57 80 20 140/50 96 Room Air 06/14/17 02:22 37.1 06/14/17 01:51 97 Room Air 06/14/17 01:41 76 06/14/17 01:38 76 20 133/62 98 Room Air 06/14/17 00:27 39.0 79 18 135/64 96 Room Air Physical Exam HEENT: Head - normocephalic and atraumatic Pupils are equal, round, and reactive to light. Extraocular eye muscles are intact, and sclera are anicteric. Nose - moist nasal mucosa without discharge. Mouth - moist buccal mucosa. Oropharynx is nonerythematous and there is no tonsillar exudate or edema noted. Neck: Supple; no JVD, nuchal rigidity, cervical lymphadenopathy. Heart: Regular rate and rhythm. There is a normal S1 and S2 with no murmurs, clicks, or gallops appreciated. Lungs: Diminished breath sounds in bilateral lung bases. Abdomen: Soft, completely nontender, nondistended, with good bowel sounds. There are no palpable pulsatile masses or hepatosplenomegaly. There is no guarding, rigidity, or rebound noted. Extremities: No evidence of cyanosis, clubbing, with 2+ pitting edema in legs. There are easily palpable peripheral pulses. Skin: warm and dry with good turgor and no rashes. Neuro: The patient seems slow lethargic on exam is slow to answer questions. Medical Decision & Procedures ER Provider Diagnostic Interpretation: Radiology results as stated below per my review and the radiologist's interpretation: Portable chest X-ray: no obvious pulmonary infiltrate or pulmonary effusion. Laboratory Results Test 06/14/17 01:10 06/14/17 01:13 06/14/17 02:00 Platelet Estimate DECREASED Ovalocytes 1+ Prothrombin Time 12.9 SECONDS (9.0-12.0) Prothromb Time International Ratio 1.2 (0.9-1.1) Activated Partial Thromboplast Time 28.7 SECONDS (21.0-31.0) Partial Thromboplastin Ratio 1.1 Ammonia 110.0 umol/L (11-32) Total Creatine Kinase 200 U/L (26-192) Creatine Kinase MB 1.2 ng/ml (0.5-3.6) Creatine Kinase MB Ratio 0.6 (0-3.0) Troponin I 0.017 ng/ml (0-0.045) Bedside Lactic Acid Venous 6.19 mmol/L (0.90-1.70) Urine Color DK YELLOW Urine Appearance CLEAR (CLEAR) Urine pH 5.5 (4.5-7.5) Urine Specific [place] 1.029 (1.000-1.030) Urine Protein 1+ (NEG) Urine Glucose (UA) NEG (NEG) Urine Ketones TRACE (NEG) Urine Occult Blood NEG (NEG) Urine Nitrite NEG (NEG) Urine Bilirubin NEG (NEG) Urine Urobilinogen NEG (NEG) Urine Leukocyte Esterase NEG (NEG) Urine WBC (Auto) 1-5 /hpf (0-5) Urine RBC (Auto) 0-4 /hpf (0-4) Urine Hyaline Casts (Auto) 0 /lpf (0-5) Urine Epithelial Cells (Auto) 5-10 /lpf (0-5) Urine Bacteria (Auto) NEG (NEG) Laboratory results per my review. Medications Administered Medications (Trade) Dose Ordered Sig/Kole Route Start Time Stop Time Status Last Admin Dose Admin Sodium Chloride 500 ml @ 999 mls/hr Q31M STAT IV 06/14/17 01:26 06/14/17 01:56 DC 06/14/17 02:13 999 MLS/HR Sodium Chloride 1,000 ml @ 250 mls/hr Q4H STAT IV 06/14/17 01:26 06/14/17 05:25 DC 06/14/17 02:14 250 MLS/HR Daptomycin 500 mg/ Syringe 10 ml @ 5 mls/min TODAY@0130 IV 06/14/17 01:30 06/14/17 02:30 DC 06/14/17 02:14 5 MLS/MIN Cefepime HCl 2000 mg/Syringe 20 ml @ 5 mls/min TODAY@0130 IV 06/14/17 01:30 06/14/17 02:30 DC 06/14/17 02:14 5 MLS/MIN Procedure NSS IV, Cefepime HCl IV, Daptomycin IV. ECG Indication: chest pain Rate (beats per minute): 78 Rhythm: normal sinus Findings: ST depression (Inferior and laterally) Comparison ECG Date: 04/27/17 Change: ST depression is slightly worse. ED Course 0052: Past medical records reviewed. The patient was evaluated in room A12B. A complete history and physical exam was performed. A septic protocol was performed. Laboratory studies were drawn as above. The patient had a chest x- ray as described above. 0126: Sodium Chloride 1000 ml @ 250 mls/hr IV, Sodium Chloride 500 ml @ 999 mls/ hr IV. 0130: Cefepime HCl 2,000 mg/Syringe 20 ml @ 5 mls/min IV, Daptomycin 500 mg/ Syringe 10 ml @5 mls/min Protocol IV. 0308: Discussed the patient's case with Dr. Diaz. The patient will be evaluated for further management. Medical Decision The patient is a 66 year old female who presents to the Emergency Room with complaints of a constant cough beginning this morning. Differential diagnosis includes: hepatic encephalopathy, electrolyte abnormality, sepsis, pneumonia. Lab results show: lactic 6.1, white cell count 5.2, hemoglobin 9.4 which is baseline, platelet count 63 which is baseline(the patient has a history of pancytopenia), sodium 146, potassium 3, normal renal function, glucose 149, ammonia 110, total bilirubin 1.6, AST 106, alc phos 163, total CK 200, CK MB 1.2 , troponin 0.017. Patient presents to the emergency department with cough, fever and lethargy. She has a history of cirrhosis(VELEZ.) The patient had a significantly elevated lactic acid and slightly elevated ammonia. The patient was given broad- spectrum antibiotics for probable sepsis. I discussed the case with the [facility] hospitalist and they will evaluate for further management. Medication Reconcilliation Current Medication List: was personally reviewed by me Blood Pressure Screening Patient's blood pressure: Elevated blood pressure Blood pressure disposition: Referred to PCP (evaluated by hospitlaist) Consults Time Called: [phone] Consulting Physician: Dr. Diaz Returned Call: [phone] Discussed the patient's case. The patient will be evaluated for further management. Impression Primary Impression: Sepsis Additional Impression: Hepatic encephalopathy Scribe Attestation The scribe's documentation has been prepared under my direction and personally reviewed by me in its entirety. I confirm that the note above accurately reflects all work, treatment, procedures, and medical decision making performed by me. Departure Information Dispostion Being Evaluated By Hospitalist Referrals Maury Bond M.D. (PCP) Patient Instructions My [facility] Problem Qualifiers Primary Impression: Sepsis Sepsis type: sepsis due to unspecified organism Qualified Codes: A41.9 - Sepsis, unspecified organism
[2017-06-14] MEDS ORDERED: FERR1TAB13 PO (01:18)
[2017-06-14] MEDS ORDERED: GABA-113 PO (01:19)
[2017-06-14 01:20] LABS: HEMATOCRIT 28.1 % (37-47); MEAN CELL VOLUME 97.9 fL (80-100); MEAN CORPUSCULAR HEMOGLOBIN 32.8 pg (25-34); MEAN CORPUSCULAR HGB CONC 33.5 g/dl (32-36); RED BLOOD COUNT 2.87 M/uL (4.2-5.4); WHITE BLOOD COUNT 5.24 K/uL (4.8-10.8)
[2017-06-14] MEDS ORDERED: GLC/500 PO (01:21)
[2017-06-14] MEDS ORDERED: NADO20TA PO (01:22)
[2017-06-14] MEDS ORDERED: PANT1TAB48 PO (01:24)
[2017-06-14] MEDS ORDERED: FURO-85 PO (01:25)
[2017-06-14] MEDS ORDERED: SODIUM CHLORIDE 0.9% 500ML 500 ML IV STA (01:26)
[2017-06-14] MEDS ORDERED: SODIUM CHLORIDE 0.9% 1000ML 1,000 ML IV STA ×2 (01:26→05:48)
[2017-06-14] MEDS ORDERED: RIFA550T2 PO (01:27)
[2017-06-14] MEDS ORDERED: eye promise PO (01:29)
[2017-06-14] MEDS ORDERED: CEFEPIME IV 2,000 MG in SYRINGE 7.5 ML IV SCH (01:30)
[2017-06-14] MEDS ORDERED: LACT10SO17 PO ×2 (01:30→01:32)
[2017-06-14] MEDS ORDERED: DAPTOmycin IV 500 MG in SODIUM CHLORIDE 0.9% 50ML 50 ML IV STA (01:30)
[2017-06-14] MEDS ORDERED: DAPTOmycin IV 500 MG in SYRINGE 0 ML IV SCH (01:30)
[2017-06-14] MEDS ORDERED: CEFEPIME IV 2,000 MG in DEXTROSE 5% 100ML 100 ML IV ONE (01:30)
[2017-06-14] MEDS ORDERED: INSDGIPEN SQ (01:33)
[2017-06-14] MEDS ORDERED: INSPMPNVLG (01:34)
[2017-06-14] MEDS ORDERED: NVLGIPEN SQ (01:37)
[2017-06-14 01:38] LABS: INR 1.2 (0.9-1.1); PARTIAL THROMBOPLASTIN RATIO 1.1; PROTHROMBIN TIME (PATIENT) 12.9 SECONDS (9.0-12.0)
[2017-06-14] MEDS ORDERED: ARTISOL12 OP (01:40)
[2017-06-14 01:41] LABS: BUN/CREATININE RATIO 15.1 (10-20); CALCIUM 8.7 mg/dl (8.5-10.1); CREATININE 1.02 mg/dl (0.60-1.20)
[2017-06-14] MEDS ORDERED: diclofenac gel EXT (01:42)
[2017-06-14 01:45] LABS: ANISOCYTOSIS PRESENT; BASO % 0.4 %; BASO ABS # 0.02 K/uL (0-0.2); COMPLETE YES; EOS % 1.9 %; IG% 0.2 %; LYMPH % 26.1 %; LYMPH ABS # 1.37 K/uL (1.2-3.4); MEAN PLATELET VOLUME 10.7 fL (7.4-10.4); MONO % 11.8 %; NEUT % 59.6 %; OVALOCYTES 1+; PLATELET COUNT 63 K/uL (130-400); PLT ESTIMATE DECREASED
[2017-06-14 01:46] LABS: ALB/GLOB RATIO 0.6 (0.9-2); CKMB/CK RATIO 0.6 (0-3.0)
[2017-06-14 02:28] LABS: MANUAL MICROSCOPIC REQUIRED? NO; REVIEW REQ? NO; URINE APPEARANCE CLEAR (CLEAR); URINE BILIRUBIN NEG (NEG); URINE COLOR DK YELLOW; URINE NITRITE NEG (NEG); URINE PH 5.5 (4.5-7.5); URINE SPECIFIC GRAVITY 1.029 (1.000-1.030); UROBILINOGEN NEG (NEG)
[2017-06-14] MEDS ORDERED: ACETAMINOPHEN 325 MG TAB PO PRN (04:15)
[2017-06-14] MEDS ORDERED: DICLOFENAC SOD 1% GEL 100 GM TUBE EXT PRN (04:15)
[2017-06-14] MEDS ORDERED: ONDANSETRON INJ 2 MG/ML 2 ML VIAL IV PRN (04:15)
--- NOTE | 2017-06-14 04:25 | History and Physical ---
History & Physical Date & Time of Service: Jun 14, 2017 at 04:25 Chief Complaint: Pain In Head,Belly,Pnemonia Primary Care Physician: Maury Bond M.D. History of Present Illness Source: patient, hospital records Mrs Rangel is a 66 year old female with COPD and liver cirrhosis who presents to the ER cough, sore throat, fevers and fatigue. She feels similar to previous episodes of pneumonia. Her symptoms started 5 days prior as per her son who she lives with and she has been getting progressively worse. She is coughing up yellow sputum. Her son had a similar illness last week. She has a diagnosis of COPD but does not take any inhalers for this. She has been having BM x5/day with her lactulose. She denies any chest pain, abdominal pain, diarrhea, constipation, GI bleeding or UTI Sx. Past Medical/Surgical History Medical Problems: 1) Pancytopenia - likely related to cirrhosis 2) COPD - not currently treated 3) Dementia 4) DM 2 5) Cirrhosis - possibly due to VELEZ/alcohol 6) Portal hypertension and esophageal varices Family History CHF (congestive heart failure) Diabetes mellitus FHx: stroke Heart disease Social History Smoking Status: Former Smoker Drug Use: none Marital Status: Housing status: lives with family Occupational Status: retired Immunizations History of Influenza Vaccine: Yes Influenza Vaccine Date: May 29, 2011 History of Tetanus Vaccine?: Yes Tetanus Immunization Date: Sep 29, 2005 History of Pneumococcal: No Pneumococcal Date: Mar 10, 2008 History of Hepatitis B Vaccine: No Multi-Drug Resistant Organisms History of MDRO: No Allergies Coded Allergies: Methyl Salicylate (Verified Allergy, Unknown, RASH, 06/14/17) Nickel (Verified Allergy, Unknown, RASH, 06/14/17) Zinc (Verified Allergy, Unknown, RASH, 06/14/17) Diphenhydramine (Verified Adverse Reaction, Intermediate, BURNING EYES, DIZZY,BLISTERS, 06/14/17) Home Medications Scheduled Artificial Tear Solution (Artificial Tears), 2 DROPS OP QID Aspirin (Aspirin Ec), 81 MG PO QAM Atorvastatin (Lipitor), 40 MG PO HS Cholecalciferol (Vitamin D3), 2,000 INTERUNIT PO QAM Diclofenac Sodium (Topical) (Voltaren 1% Top Gel), 1 DOSE EXT QID Docusate Sodium (Docusate Sodium), 100 MG PO BID Ferrous Sulfate (Kp Ferrous Sulfate), 325 MG PO BID Folic Acid (Folvite), 1 MG PO QAM Furosemide (Lasix), 20 MG PO DAILY Gabapentin (Neurontin), 300 MG PO Q12 Insulin Aspart (Novolog Flexpen), UNITS SQ ACHS Insulin Glargine (Lantus Solostar), 38 UNITS SQ BID Lactulose (Chronulac), 30 ML PO TID Magnesium Oxide (Mag-Ox), 400 MG PO QAM Metformin HCl (Metformin HCl), 500 MG PO BIDM Metformin Hcl (Glucophage), 500 MG PO BIDM Multiple Vitamins W/ Minerals (Preservision Areds 2), 1 CAP PO BID Nadolol (Corgard), 20 MG PO DAILY Pantoprazole (Protonix), 40 MG PO BID Rifaximin (Xifaxan), 550 MG PO BID Ropinirole Hydrochloride (Requip), 0.5 MG PO HS [diclofenac gel], 1 APPLN EXT QID [eye promise], 1 TAB PO BID Scheduled PRN Carboxymethylcellulose Sodium (Refresh), 1 DROP OPB QID PRN for DRYNESS Review of Systems All systems reviewed and otherwise negative other than in HPI Physical Exam Vital Signs Date Time Temp Pulse Resp B/P (MAP) Pulse Ox O2 Delivery O2 Flow Rate FiO2 06/14/17 03:57 80 20 140/50 96 Room Air 06/14/17 02:22 37.1 06/14/17 01:51 97 Room Air 06/14/17 01:41 76 06/14/17 01:38 76 20 133/62 98 Room Air 06/14/17 00:27 39.0 79 18 135/64 96 Room Air General Appearance: WD/WN, no apparent distress, + obese Head: normocephalic, atraumatic Eyes: PERRL, EOMI ENT: + pertinent finding (dry mouth, mildly erythematous oropharynx without tonsillar enlargement or exudate,, right superior anterior neck triangle) Neck: supple, no JVD Respiratory/Chest: chest non-tender, lungs clear, normal breath sounds, no respiratory distress, no accessory muscle use Cardiovascular: regular rate, rhythm, normal peripheral pulses, + systolic murmur (soft, LUSB) Abdomen/GI: normal bowel sounds, non tender, soft Back: no CVA tenderness Extremities/Musculoskelatal: normal capillary refill, + calf tenderness (mild left sided, chronic), + pedal edema (1+ b/l at ankles) Neurologic/Psych: sheep or calf grader II-XII nml as tested (no), no motor/sensory deficits ( grossly morving all 4 limbs equally), alert (drowsy at times), oriented x 3 Skin: normal color, warm/dry, no rash Diagnostics Laboratory Results Results Past 24 Hours Test 06/14/17 01:10 06/14/17 01:13 06/14/17 02:00 Range/Units White Blood Count 5.24 4.8-10.8 K/uL Red Blood Count 2.87 4.2-5.4 M/uL Hemoglobin 9.4 12.0-16.0 g/dL Hematocrit 28.1 37-47 % Mean Corpuscular Volume 97.9 80-100 fL Mean Corpuscular Hemoglobin 32.8 25-34 pg Mean Corpuscular Hemoglobin Concent 33.5 32-36 g/dl Platelet Count 63 130-400 K/uL Mean Platelet Volume 10.7 7.4-10.4 fL Neutrophils (%) (Auto) 59.6 % Lymphocytes (%) (Auto) 26.1 % Monocytes (%) (Auto) 11.8 % Eosinophils (%) (Auto) 1.9 % Basophils (%) (Auto) 0.4 % Neutrophils # (Auto) 3.12 1.4-6.5 K/uL Lymphocytes # (Auto) 1.37 1.2-3.4 K/uL Monocytes # (Auto) 0.62 0.11-0.59 K/uL Eosinophils # (Auto) 0.10 0-0.5 K/uL Basophils # (Auto) 0.02 0-0.2 K/uL RDW Standard Deviation 70.4 36.4-46.3 fL RDW Coefficient of Variation 19.8 11.5-14.5 % Immature Granulocyte % (Auto) 0.2 % Immature Granulocyte # (Auto) 0.01 0.00-0.02 K/uL Platelet Estimate DECREASED Anisocytosis PRESENT Ovalocytes 1+ Prothrombin Time 12.9 9.0-12.0 SECONDS Prothromb Time International Ratio 1.2 0.9-1.1 Activated Partial Thromboplast Time 28.7 21.0-31.0 SECONDS Partial Thromboplastin Ratio 1.1 Sodium Level 146 136-145 mmol/L Potassium Level 3.0 3.5-5.1 mmol/L Chloride Level 112 98-107 mmol/L Carbon Dioxide Level 18 21-32 mmol/L Anion Gap 16.0 3-11 mmol/L Blood Urea Nitrogen 15 7-18 mg/dl Creatinine 1.02 0.60-1.20 mg/dl Est Creatinine Clear Calc Drug Dose 53.3 ml/min Estimated GFR () 65.9 Estimated GFR (Non- 56.9 BUN/Creatinine Ratio 15.1 10-20 Random Glucose 149 70-99 mg/dl Calcium Level 8.7 8.5-10.1 mg/dl Total Bilirubin 1.6 0.2-1 mg/dl Aspartate Amino Transf (AST/SGOT) 106 15-37 U/L Alanine Aminotransferase (ALT/SGPT) 42 12-78 U/L Alkaline Phosphatase 163 45-117 U/L Ammonia 110.0 11-32 umol/L Total Creatine Kinase 200 26-192 U/L Creatine Kinase MB 1.2 0.5-3.6 ng/ml Creatine Kinase MB Ratio 0.6 0-3.0 Troponin I 0.017 0-0.045 ng/ml Total Protein 6.5 6.4-8.2 gm/dl Albumin 2.5 3.4-5.0 gm/dl Globulin 4.0 2.5-4.0 gm/dl Albumin/Globulin Ratio 0.6 0.9-2 Bedside Lactic Acid Venous 6.19 0.90-1.70 mmol/L Urine Color DK YELLOW Urine Appearance CLEAR CLEAR Urine pH 5.5 4.5-7.5 Urine Specific [place] 1.029 1.000-1.030 Urine Protein 1+ NEG Urine Glucose (UA) NEG NEG Urine Ketones TRACE NEG Urine Occult Blood NEG NEG Urine Nitrite NEG NEG Urine Bilirubin NEG NEG Urine Urobilinogen NEG NEG Urine Leukocyte Esterase NEG NEG Urine WBC (Auto) 1-5 0-5 /hpf Urine RBC (Auto) 0-4 0-4 /hpf Urine Hyaline Casts (Auto) 0 0-5 /lpf Urine Epithelial Cells (Auto) 5-10 0-5 /lpf Urine Bacteria (Auto) NEG NEG Microbiology Results 06/14/17 Blood Culture, Received Pending 06/14/17 Blood Culture, Received Pending 06/14/17 Urine Culture, Received Pending Diagnostic Radiology CHEST ONE VIEW PORTABLE CLINICAL HISTORY: 66 years-old Female presenting with Sepsis. TECHNIQUE: Portable upright AP view of the chest was obtained. COMPARISON: 04/28/2017. FINDINGS: Atherosclerosis of aortic arch. Cardiac silhouette normal size. Minimal left basilar opacity persists. No new focal infiltrate. Suggestion of mild bronchial wall thickening, unchanged. Mildly low lung volumes. No large effusion or pneumothorax. Osseous structures normal. Upper abdomen normal. IMPRESSION: 1. Mildly low lung volumes with persistent minimal left basilar opacity, likely atelectasis. 2. Bronchial wall thickening, nonspecific and can be seen in the setting of volume overload, reactive airways disease, or viral bronchiolitis among other etiologies. Electronically signed by: Maury Lucas M.D. 06/14/2017 7:20 AM Dictated Date/Time: 06/14/2017 7:19 AM EKG Normal sinus rhythm Rate 78 bpm Nonspecific T wave abnormality Prolonged QT When compared with ECG of 27-APR-2017 20:20, Premature atrial complexes are no longer Present Impression Assessment and Plan 66 y/o female Hx DM, Cirrhosis, esophageal varices, pancytopenia, dementia. Presented with fever, cough, neck pain and shortness of breath. Lactic acid in the ER POC 6.19 Pyrexial with lactic acidosis - suspect infection related - trend - if not clinically improving consider CT head vs. chest vs A/P. No lateralizing neuro exam and negative Brudzinski/Kernig sign for meningitis. Chest most likely given ongoin cough although CXR unremarkable. Patient appears non toxic without an acute abdomen. - Continue IVF Possible pneumonia - equivocal CXR but having productive cough - Continue cefepime, add Levaquin and vancomycin (pending MRSA swab) - Influenza swab - incentive spirometry, flutter valve, duonebs Mild LLQ tenderness - only present on palpation - if not clinically improving consider CT A/P with contrast to assess for mesenteric ischemia and diverticulitis Thrombocytopenia - likely related to cirrhosis - trend, defer chemical anticoagulation Cirrhosis with hyperammonemia - increase lactulose to QID - continue rifaximin T2DM - Lantus 38 units BID - Novolog 10 correction, 4 carb coverage - BSG ACHS Resident Physician Supervision Note: Pt seen/evaluated independently. I discussed the case with the resident and agree with the findings and plan as documented in the note. Any exceptions or clarifications are listed here: 66 y/o NH resident with Hx hepatic cirrhosis - recent [facility] admission - presenting with fever, throat ruiz and some abdominal tenderness - she has a markedly elevated lactic acid without a clear infectious source presently. Confusion was reported earlier in the day - possibly owing to encephalitis although she appears relatively clear at the time of admission. OE AAO x 2 S1,2 R CTA + distention - minimal diffuse tenderness without guarding Chronic edema P: Placed on antibiotics to cover a respiratory source pending culture results to include HCAP coverage - if negative, would consider CT chest to confirm absence or presence of PNM Will continue Lactulose for cirrhosis with history of encephalopathy. A GI source of infection or ischemic bowel are less likely and should be considered if a respiratory source is excluded. Documented By: Warner Law Level of Care Med/Surg Advanced Directives Existing Advance Directive: No Existing Living Will: No Existing Power of It Compliance Analyst: No Resuscitation Status DO NOT RESUSCITATE (as discussed with the patient who can understand, weight up , make a deicision and communicate that decision) VTE Prophylaxis VTE Risk Assessment Done? Y/N: Yes Risk Level: Moderate Given or contraindicated: Jody Jewell, SCD's Additional Copies To Maury Bond M.D. Resident Tracking Resident Involvement: Resident Care Provided Care Provided: Adult Hospital Medicine
[2017-06-14] MEDS ORDERED: DEXTROSE 50% 50 ML SYR IV PRN (05:45)
[2017-06-14] MEDS ORDERED: GLUCOSE 40% GEL 15 GM TUBE PO PRN (05:45)
[2017-06-14] MEDS ORDERED: GLUCAGON FOR INJ 1 MG VIAL SQ PRN (05:45)
[2017-06-14] MEDS ORDERED: GLUCOSE 10 TABS/TUBE PO PRN (05:45)
[2017-06-14] MEDS ORDERED: POTASSIUM CHLORIDE 20 MEQ TABCR PO STA (05:50)
[2017-06-14 06:15] LABS: HEMATOCRIT 25.8 % (37-47); MEAN CELL VOLUME 98.5 fL (80-100); MEAN CORPUSCULAR HEMOGLOBIN 33.2 pg (25-34); MEAN CORPUSCULAR HGB CONC 33.7 g/dl (32-36); RED BLOOD COUNT 2.62 M/uL (4.2-5.4); WHITE BLOOD COUNT 4.28 K/uL (4.8-10.8)
[2017-06-14 06:42] LABS: BUN/CREATININE RATIO 20.9 (10-20); CALCIUM 8.8 mg/dl (8.5-10.1); CREATININE 0.84 mg/dl (0.60-1.20); POTASSIUM 3.2 mmol/L (3.5-5.1)
[2017-06-14 06:44] LABS: MEAN PLATELET VOLUME 10.3 fL (7.4-10.4); PLATELET COUNT 52 K/uL (130-400)
[2017-06-14 06:45] LABS: ALB/GLOB RATIO 0.6 (0.9-2)
[2017-06-14 06:47] LABS: ANISOCYTOSIS PRESENT; BASO % 0.5 %; BASO ABS # 0.02 K/uL (0-0.2); COMPLETE YES; EOS % 1.2 %; IG% 0.2 %; LYMPH % 26.2 %; LYMPH ABS # 1.12 K/uL (1.2-3.4); MONO % 8.9 %
[2017-06-14] MEDS: ALBUT/IPRATROP 3MG/0.5MG NEB 3 ML VIAL INH SCH ×4 (06:58→19:12)
[2017-06-14] MEDS: INSULIN ASPART 100 UNITS/ML 3 ML PEN SC SCH ×4 (07:00→20:56)
--- NOTE | 2017-06-14 07:21 | DIAGNOSTIC IMAGING REPORT ---
CHEST ONE VIEW PORTABLE CLINICAL HISTORY: 66 years-old Female presenting with Sepsis. TECHNIQUE: Portable upright AP view of the chest was obtained. COMPARISON: 04/28/2017. FINDINGS: Atherosclerosis of aortic arch. Cardiac silhouette normal size. Minimal left basilar opacity persists. No new focal infiltrate. Suggestion of mild bronchial wall thickening, unchanged. Mildly low lung volumes. No large effusion or pneumothorax. Osseous structures normal. Upper abdomen normal. IMPRESSION: 1. Mildly low lung volumes with persistent minimal left basilar opacity, likely atelectasis. 2. Bronchial wall thickening, nonspecific and can be seen in the setting of volume overload, reactive airways disease, or viral bronchiolitis among other etiologies. Electronically signed by: Maury Lucas M.D. 06/14/2017 7:20 AM Dictated Date/Time: 06/14/2017 7:19 AM
[2017-06-14] MEDS ORDERED: VANCOMYCIN CONSULT ACTIVE PRN (08:00)
[2017-06-14] MEDS ORDERED: CEFEPIME CONSULT ACTIVE PRN ×2 (08:00)
[2017-06-14] MEDS ORDERED: LEVOFLOXACIN CONSULT ACTIVE PRN (08:00)
[2017-06-14] MEDS ORDERED: VANCOMYCIN INJ 2,000 MG in SODIUM CHLORIDE 0.9% 500ML 500 ML IV STA (08:00)
[2017-06-14] MEDS ORDERED: VANCOMYCIN INJ 1,000 MG in SODIUM CHLORIDE 0.9% 250ML 250 ML IV SCH (08:00)
[2017-06-14] MEDS: LACTULOSE SYRUP 20 GM/30 ML UDC PO SCH ×3 (08:09→20:53)
[2017-06-14] MEDS: DOCUSATE SODIUM 100 MG CAP PO SCH ×2 (08:12→20:53)
[2017-06-14] MEDS: ASPIRIN 81 MG ECTAB PO SCH (08:12)
[2017-06-14] MEDS: CEROVITE ADV FORMULA TAB PO SCH ×2 (08:13→20:55)
[2017-06-14] MEDS: FUROSEMIDE 20 MG TAB PO SCH (08:15)
[2017-06-14] MEDS: POTASSIUM CHLORIDE 20 MEQ TABCR PO SCH ×2 (08:15→20:55)
[2017-06-14] MEDS: MAGNESIUM OXIDE 400 MG TAB PO SCH (08:15)
[2017-06-14] MEDS: PANTOprazole SOD 40 MG TAB PO SCH ×2 (08:16→20:53)
[2017-06-14] MEDS: GABAPENTIN 300 MG CAP PO SCH ×2 (08:18→20:55)
[2017-06-14] MEDS: FERROUS SULFATE 325 MG TAB PO SCH ×2 (08:18→17:18)
[2017-06-14] MEDS: NADOLOL 40 MG TAB PO SCH (08:23)
[2017-06-14] MEDS: RIFAXIMIN TAB 550 MG TAB PO SCH ×2 (08:24→20:54)
[2017-06-14] MEDS: CHOLECALCIFEROL 1000 INTER.UNIT TAB PO SCH (08:26)
[2017-06-14] MEDS: INSULIN GLARGINE SOLOSTAR 100 UNITS/ML 3 ML PEN SQ SCH ×2 (08:30→21:01)
[2017-06-14] MEDS: ARTIFICIAL TEARS OP SOLN OP SCH ×8 (08:39→20:53)
[2017-06-14] MEDS: METFORMIN HCL 500 MG TAB PO SCH ×2 (08:54→17:19)
[2017-06-14] MEDS: LEVOFLOXACIN / D5W 750 MG in PREMIXED IN D5W 150 ML IV SCH (11:44)
[2017-06-14] MEDS: CEFEPIME IV 2,000 MG in SYRINGE 7.5 ML IV SCH ×2 (11:44→17:18)
[2017-06-14] MEDS ORDERED: SODIUM CHLORIDE 0.45% 1000ML 1,000 ML IV SCH (11:45)
[2017-06-14 13:07] LABS: INFLUENZA A PCR Neg for Influ A (NEG); INFLUENZA B PCR Neg for Influ B (NEG)
--- NOTE | 2017-06-14 15:00 | Family Medicine Progress Note ---
Progress Note Date of Service Jun 14, 2017. Subjective Pt evaluation today including: conversation w/ patient, physical exam, chart review, lab review Pt c/o cough, neck pain, periorbital pain, fatigue, fever Constitutional: + fever, + chills, No sweats ENT: + nasal symptoms, + sore throat Respiratory: + cough, + sputum, + shortness of breath, No wheezing Cardiovascular: No chest pain, No edema, No palpitations Abdomen: No pain, No nausea, No vomiting, No diarrhea Medications Current Inpatient Medications Medications (Trade) Dose Ordered Sig/Kole Route Start Time Stop Time Status Last Admin Dose Admin Acetaminophen (Tylenol Tab) 650 mg Q4H PRN PO 06/14/17 04:15 07/14/17 04:14 Ondansetron HCl (Zofran Inj) 4 mg Q6H PRN IV 06/14/17 04:15 07/14/17 04:14 Aspirin (Ecotrin Tab) 81 mg QAM PO 06/14/17 08:00 07/14/17 08:59 06/14/17 08:12 81 MG Atorvastatin Calcium (Lipitor Tab) 40 mg HS PO 06/14/17 21:00 07/14/17 20:59 Diclofenac Sodium (Voltaren 1% Top Gel) 1 appln QID PRN EXT 06/14/17 04:15 07/14/17 04:14 Docusate Sodium (coLACE CAP) 100 mg BID PO 06/14/17 08:00 07/14/17 08:59 06/14/17 08:12 100 MG Folic Acid (Folvite Tab) 1 mg QAM PO 06/14/17 08:00 07/14/17 08:59 06/14/17 08:14 1 MG Furosemide (Lasix Tab) 20 mg DAILY PO 06/14/17 08:00 07/14/17 08:59 06/14/17 08:15 20 MG Gabapentin (Neurontin Cap) 300 mg Q12 PO 06/14/17 09:00 07/14/17 08:59 06/14/17 08:18 300 MG Insulin Glargine (Lantus Solostar Pen) 38 units BID SQ 06/14/17 08:00 07/14/17 08:59 06/14/17 08:30 38 UNITS Lactulose (Chronulac Syrup) 20 gm TID PO 06/14/17 08:00 07/14/17 08:59 06/14/17 08:09 20 GM Magnesium Oxide (Mag-Ox Tab) 400 mg QAM PO 06/14/17 08:00 07/14/17 08:59 06/14/17 08:15 400 MG Metformin HCl (Glucophage Tab) 500 mg BIDM PO 06/14/17 08:00 07/14/17 07:59 06/14/17 08:54 500 MG Nadolol (Corgard Tab) 20 mg DAILY PO 06/14/17 08:00 07/14/17 08:59 06/14/17 08:23 20 MG Pantoprazole Sodium (Protonix Tab) 40 mg BID PO 06/14/17 08:00 07/14/17 08:59 06/14/17 08:16 40 MG Rifaximin (Xifaxan Tab) 550 mg BID PO 06/14/17 08:00 07/14/17 08:59 06/14/17 08:24 550 MG Ropinirole HCl (Requip Tab) 0.5 mg HS PO 06/14/17 21:00 07/14/17 20:59 Multivitamins/ Minerals (Multivitamin W/ Minerals Tab) 1 tab BID PO 06/14/17 08:00 07/14/17 08:59 06/14/17 08:13 1 TAB Artificial Tears (Artificial Tears) 2 drops QID OP 06/14/17 08:00 07/14/17 08:59 06/14/17 08:39 2 DROPS Cholecalciferol (Vitamin D Tab) 2,000 inter.unit QAM PO 06/14/17 08:00 07/14/17 08:59 06/14/17 08:26 2,000 INTER.UNIT Ferrous Sulfate (Feosol Tab) 325 mg BIDM PO 06/14/17 08:00 07/14/17 07:59 06/14/17 08:18 325 MG Albuterol/ Ipratropium (Duoneb) 3 ml QIDR INH 06/14/17 08:00 07/14/17 07:59 06/14/17 11:12 3 ML Insulin Aspart (novoLOG ASPART) SLIDING SCALE If C... ACHS SC 06/14/17 07:00 07/14/17 06:59 06/14/17 12:32 6 UNITS Glucose (Glucose 40% Gel) 15-30 GRAMS 15 GRAMS... UD PRN PO 06/14/17 05:45 07/14/17 05:44 Glucose (Glucose Chew Tab) 4-8 Tablets 4 Tabl... UD PRN PO 06/14/17 05:45 07/14/17 05:44 Dextrose (Dextrose 50% 50ML Syringe) 25-50ML OF 50% DW IV FOR... UD PRN IV 06/14/17 05:45 07/14/17 05:44 Glucagon (Glucagon Inj) 1 mg UD PRN SQ 06/14/17 05:45 07/14/17 05:44 Potassium Chloride (Klor-Con Tab) 20 meq BID PO 06/14/17 09:00 07/14/17 08:59 06/14/17 08:15 20 MEQ Cefepime HCl 2000 mg/Syringe 20 ml @ 5 mls/min Q8H IV 06/14/17 10:00 06/21/17 09:59 06/14/17 11:44 5 MLS/MIN Levofloxacin 750 mg/Prmx 150 ml @ 100 mls/hr Q24H IV 06/14/17 11:00 06/21/17 10:59 06/14/17 11:44 100 MLS/HR Levofloxacin (Consult) 1 ea UD PRN N/A 06/14/17 08:00 07/14/17 07:59 Cefepime HCl (Consult) 1 ea UD PRN N/A 06/14/17 08:00 07/14/17 07:59 Vancomycin HCl (Consult) 1 ea UD PRN N/A 06/14/17 08:00 07/14/17 07:59 Sodium Chloride 1,000 ml @ 75 mls/hr [id number] IV 06/14/17 11:45 06/15/17 01:04 06/14/17 11:44 75 MLS/HR Objective Vital Signs 06/14/17 05:58 Red Blood Count 2.62, Mean Corpuscular Volume 98.5, Mean Corpuscular Hemoglobin 33.2, Mean Corpuscular Hemoglobin Concent 33.7, Mean Platelet Volume 10.3, Neutrophils (%) (Auto) 63.0, Lymphocytes (%) (Auto) 26.2, Monocytes (%) (Auto) 8.9, Eosinophils (%) (Auto) 1.2, Basophils (%) (Auto) 0.5, Neutrophils # (Auto) 2.70, Lymphocytes # (Auto) 1.12, Monocytes # (Auto) 0.38, Eosinophils # (Auto) 0.05, Basophils # (Auto) 0.02 06/14/17 05:58 Test 06/14/17 01:10 06/14/17 01:13 06/14/17 02:00 06/14/17 05:58 Platelet Estimate DECREASED Ovalocytes 1+ Prothrombin Time 12.9 SECONDS (9.0-12.0) Prothromb Time International Ratio 1.2 (0.9-1.1) Activated Partial Thromboplast Time 28.7 SECONDS (21.0-31.0) Partial Thromboplastin Ratio 1.1 Ammonia 110.0 umol/L (11-32) Total Creatine Kinase 200 U/L (26-192) Creatine Kinase MB 1.2 ng/ml (0.5-3.6) Creatine Kinase MB Ratio 0.6 (0-3.0) Troponin I 0.017 ng/ml (0-0.045) Bedside Lactic Acid Venous 6.19 mmol/L (0.90-1.70) Urine Color DK YELLOW Urine Appearance CLEAR (CLEAR) Urine pH 5.5 (4.5-7.5) Urine Specific [place] 1.029 (1.000-1.030) Urine Protein 1+ (NEG) Urine Glucose (UA) NEG (NEG) Urine Ketones TRACE (NEG) Urine Occult Blood NEG (NEG) Urine Nitrite NEG (NEG) Urine Bilirubin NEG (NEG) Urine Urobilinogen NEG (NEG) Urine Leukocyte Esterase NEG (NEG) Urine WBC (Auto) 1-5 /hpf (0-5) Urine RBC (Auto) 0-4 /hpf (0-4) Urine Hyaline Casts (Auto) 0 /lpf (0-5) Urine Epithelial Cells (Auto) 5-10 /lpf (0-5) Urine Bacteria (Auto) NEG (NEG) White Blood Count 4.28 K/uL (4.8-10.8) Red Blood Count 2.62 M/uL (4.2-5.4) Hemoglobin 8.7 g/dL (12.0-16.0) Hematocrit 25.8 % (37-47) Mean Corpuscular Volume 98.5 fL (80-100) Mean Corpuscular Hemoglobin 33.2 pg (25-34) Mean Corpuscular Hemoglobin Concent 33.7 g/dl (32-36) Platelet Count 52 K/uL (130-400) Mean Platelet Volume 10.3 fL (7.4-10.4) Neutrophils (%) (Auto) 63.0 % Lymphocytes (%) (Auto) 26.2 % Monocytes (%) (Auto) 8.9 % Eosinophils (%) (Auto) 1.2 % Basophils (%) (Auto) 0.5 % Neutrophils # (Auto) 2.70 K/uL (1.4-6.5) Lymphocytes # (Auto) 1.12 K/uL (1.2-3.4) Monocytes # (Auto) 0.38 K/uL (0.11-0.59) Eosinophils # (Auto) 0.05 K/uL (0-0.5) Basophils # (Auto) 0.02 K/uL (0-0.2) RDW Standard Deviation 71.8 fL (36.4-46.3) RDW Coefficient of Variation 20.0 % (11.5-14.5) Immature Granulocyte % (Auto) 0.2 % Immature Granulocyte # (Auto) 0.01 K/uL (0.00-0.02) Anisocytosis PRESENT Anion Gap 16.0 mmol/L (3-11) Est Creatinine Clear Calc Drug Dose 64.7 ml/min Estimated GFR () 83.4 Estimated GFR (Non- 71.9 BUN/Creatinine Ratio 20.9 (10-20) Lactic Acid Level 4.8 mmol/L (0.4-2.0) Calcium Level 8.8 mg/dl (8.5-10.1) Total Bilirubin 1.4 mg/dl (0.2-1) Aspartate Amino Transf (AST/SGOT) 99 U/L (15-37) Alanine Aminotransferase (ALT/SGPT) 36 U/L (12-78) Alkaline Phosphatase 147 U/L (45-117) Total Protein 5.9 gm/dl (6.4-8.2) Albumin 2.3 gm/dl (3.4-5.0) Globulin 3.6 gm/dl (2.5-4.0) Albumin/Globulin Ratio 0.6 (0.9-2) Test 06/14/17 09:00 06/14/17 11:22 Influenza Type A (RT-PCR) Neg for Influ A (NEG) Influenza Type A Antigen Neg for Influ A (NEG) Influenza Type B Antigen Neg for Influ B (NEG) Influenza Type B (RT-PCR) Neg for Influ B (NEG) Bedside Glucose 192 mg/dl (70-90) Date/Time Source Procedure Growth Status 06/14/17 09:00 Nasal MRSA DNA Surveillance Screen - Final Specimen Negative for MRSA by DNA Probe Complete Physical Exam General Appearance: WD/WN, no apparent distress Eyes: normal inspection ENT: + nasal congestion, + pharyngeal erythema, + pertinent finding (no tonsillar exudate ) Neck: supple, no adenopathy, + pertinent finding (rigt sided tenderness ) Respiratory/Chest: chest non-tender, lungs clear, normal breath sounds, no respiratory distress, no accessory muscle use Cardiovascular: regular rate, rhythm, no edema, no gallop, no JVD Extremities: + pedal edema Neurologic/Psychiatric: normal mood/affect, oriented x 3, + pertinent finding ( hypersomnolent/drowsy. alert on waking up. no asterexis appreciated on exam) Skin: normal color, warm/dry, no rash Laboratory Results 06/14/17 05:58 Red Blood Count 2.62, Mean Corpuscular Volume 98.5, Mean Corpuscular Hemoglobin 33.2, Mean Corpuscular Hemoglobin Concent 33.7, Mean Platelet Volume 10.3, Neutrophils (%) (Auto) 63.0, Lymphocytes (%) (Auto) 26.2, Monocytes (%) (Auto) 8.9, Eosinophils (%) (Auto) 1.2, Basophils (%) (Auto) 0.5, Neutrophils # (Auto) 2.70, Lymphocytes # (Auto) 1.12, Monocytes # (Auto) 0.38, Eosinophils # (Auto) 0.05, Basophils # (Auto) 0.02 06/14/17 05:58 Test 06/14/17 01:10 06/14/17 01:13 06/14/17 02:00 06/14/17 05:58 Platelet Estimate DECREASED Ovalocytes 1+ Prothrombin Time 12.9 SECONDS (9.0-12.0) Prothromb Time International Ratio 1.2 (0.9-1.1) Activated Partial Thromboplast Time 28.7 SECONDS (21.0-31.0) Partial Thromboplastin Ratio 1.1 Ammonia 110.0 umol/L (11-32) Total Creatine Kinase 200 U/L (26-192) Creatine Kinase MB 1.2 ng/ml (0.5-3.6) Creatine Kinase MB Ratio 0.6 (0-3.0) Troponin I 0.017 ng/ml (0-0.045) Bedside Lactic Acid Venous 6.19 mmol/L (0.90-1.70) Urine Color DK YELLOW Urine Appearance CLEAR (CLEAR) Urine pH 5.5 (4.5-7.5) Urine Specific [place] 1.029 (1.000-1.030) Urine Protein 1+ (NEG) Urine Glucose (UA) NEG (NEG) Urine Ketones TRACE (NEG) Urine Occult Blood NEG (NEG) Urine Nitrite NEG (NEG) Urine Bilirubin NEG (NEG) Urine Urobilinogen NEG (NEG) Urine Leukocyte Esterase NEG (NEG) Urine WBC (Auto) 1-5 /hpf (0-5) Urine RBC (Auto) 0-4 /hpf (0-4) Urine Hyaline Casts (Auto) 0 /lpf (0-5) Urine Epithelial Cells (Auto) 5-10 /lpf (0-5) Urine Bacteria (Auto) NEG (NEG) White Blood Count 4.28 K/uL (4.8-10.8) Red Blood Count 2.62 M/uL (4.2-5.4) Hemoglobin 8.7 g/dL (12.0-16.0) Hematocrit 25.8 % (37-47) Mean Corpuscular Volume 98.5 fL (80-100) Mean Corpuscular Hemoglobin 33.2 pg (25-34) Mean Corpuscular Hemoglobin Concent 33.7 g/dl (32-36) Platelet Count 52 K/uL (130-400) Mean Platelet Volume 10.3 fL (7.4-10.4) Neutrophils (%) (Auto) 63.0 % Lymphocytes (%) (Auto) 26.2 % Monocytes (%) (Auto) 8.9 % Eosinophils (%) (Auto) 1.2 % Basophils (%) (Auto) 0.5 % Neutrophils # (Auto) 2.70 K/uL (1.4-6.5) Lymphocytes # (Auto) 1.12 K/uL (1.2-3.4) Monocytes # (Auto) 0.38 K/uL (0.11-0.59) Eosinophils # (Auto) 0.05 K/uL (0-0.5) Basophils # (Auto) 0.02 K/uL (0-0.2) RDW Standard Deviation 71.8 fL (36.4-46.3) RDW Coefficient of Variation 20.0 % (11.5-14.5) Immature Granulocyte % (Auto) 0.2 % Immature Granulocyte # (Auto) 0.01 K/uL (0.00-0.02) Anisocytosis PRESENT Anion Gap 16.0 mmol/L (3-11) Est Creatinine Clear Calc Drug Dose 64.7 ml/min Estimated GFR () 83.4 Estimated GFR (Non- 71.9 BUN/Creatinine Ratio 20.9 (10-20) Lactic Acid Level 4.8 mmol/L (0.4-2.0) Calcium Level 8.8 mg/dl (8.5-10.1) Total Bilirubin 1.4 mg/dl (0.2-1) Aspartate Amino Transf (AST/SGOT) 99 U/L (15-37) Alanine Aminotransferase (ALT/SGPT) 36 U/L (12-78) Alkaline Phosphatase 147 U/L (45-117) Total Protein 5.9 gm/dl (6.4-8.2) Albumin 2.3 gm/dl (3.4-5.0) Globulin 3.6 gm/dl (2.5-4.0) Albumin/Globulin Ratio 0.6 (0.9-2) Test 06/14/17 09:00 06/14/17 11:22 Influenza Type A (RT-PCR) Neg for Influ A (NEG) Influenza Type A Antigen Neg for Influ A (NEG) Influenza Type B Antigen Neg for Influ B (NEG) Influenza Type B (RT-PCR) Neg for Influ B (NEG) Bedside Glucose 192 mg/dl (70-90) Date/Time Source Procedure Growth Status 06/14/17 09:00 Nasal MRSA DNA Surveillance Screen - Final Specimen Negative for MRSA by DNA Probe Complete Assessment and Plan 66 y/o female Hx DM, Cirrhosis, esophageal varices, pancytopenia, dementia. Presented with fever, cough, neck pain and shortness of breath. Lactic acid in the ER POC 6.19 Sepsis POA - Fever with lactic acidosis - suspect infection related - trend - if not clinically improving consider CT head vs. chest vs A/P. No lateralizing neuro exam and negative Brudzinski/Kernig sign for meningitis. Chest most likely given cough symptom although CXR unremarkable. Patient appears non toxic without an acute abdomen. - Continue IVF--1/2NS rate 80 ml/s -Treating patient empirically with broad spectrum abx -Awaiting BC/UC, Flu swab Mental Status change - Grade 1 Acute Hepatic encephalopathy with underlying cirrhosis - increase lactulose to QID - continue rifaximin Dehydration - Pt was dry on exam, hypernatremic and had elevated lactic acid - Gently hydrating the patient with 1/2 NS 80 ml/s - Will trend lactic acid and sodium Possible pneumonia - equivocal CXR but having productive cough - Continue cefepime, add levaquin and vancomycin (pending MRSA swab) - Influenza swab - incentive spirometry, flutter valve, duonebs Mild LLQ tenderness - only present on palpation - if not clinically improving consider CT A/P with contrast to assess for mesenteric ischemia and diverticulitis Thrombocytopenia - likely related to cirrhosis - trend, defer chemical anticoagulation T2DM - Lantus 38 units BID - Novolog 10 correction, 4 carb coverage - BSG ACHS Reviewed: Pt Seen/Exam by Me History no new concerns continues to have fever Constitutional: denies: fever Respiratory: negative: short of breath Cardiovascular: denies chest pain General Appearance: no apparent distress Respiratory: lungs clear, no respiratory distress Cardiovascular: regular rate, rhythm Neurologic/Psychiatric: oriented x 3, other (drowsy during visit but awake and appropriately responsive. no asterexis) Skin Characteristics: warm/dry Assessment/Plan Resident Physician Supervision Note: I independently interviewed and examined the patient and verified the [place] history and physical, reviewed labs and image studies, discussed the case with the resident Dr. Rome and agree with the findings and care plan.
--- NOTE | 2017-06-14 15:51 | Medical Student: [facility] ---
Med Student History & Physical Date & Time of Service: Jun 14, 2017 at 15:16 Chief Complaint: Cirrhosis, Hepatic Encephalopathy, Incr. Ammonia L Primary Care Physician: Maury Bond M.D. 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 She denies chest pain, abdominal pain, n/v/d/c , gi bleed, dysuria, vision changes, and headaches. Initial evaluation notable for fever of 39.0 C (resolved, but returned this morning to 38.0C) non-tachypneic, non-tachycardic, and normotensive. WBC of 5.24 (later 4.28), anemia, low platelets, Na of 148, K of 3.2, Cl of 113, HCO3 of 19, PT of 12.9, INR of 1.2, AST of 106, ALT of 42, Alk phos of 163, Ammonia of 110.0, Albumin of 2.5 and lactic acid of 5.4 (later 4.8). Initial imaging consisting of CXR shows mildly low lung volumes and nonspecific bronchial wall thickening. Past Medical/Surgical History Medical Problems: (1) Abdominal pain Status: Acute (2) Anemia Status: Acute (3) Back pain Status: Acute (4) Cat bite of left hand with infection Status: Acute (5) Cellulitis of left hand Status: Acute (6) Colitis Status: Acute (7) Dehydration Status: Acute (8) Epistaxis Status: Acute (9) Fever Status: Acute (10) GI bleeding Status: Acute (11) Head injury Status: Acute (12) Head injury Status: Acute (13) Headache Status: Acute (14) Hepatic encephalopathy Status: Acute (15) Hypernatremia Status: Acute (16) Sepsis Status: Acute (17) Weakness Status: Acute Social History Smoking Status: Former Smoker Drug Use: none Marital Status: Housing status: lives with family Occupational Status: retired Immunizations History of Influenza Vaccine: Yes Influenza Vaccine Date: May 29, 2011 History of Tetanus Vaccine?: Yes Tetanus Immunization Date: Sep 29, 2005 History of Pneumococcal: No Pneumococcal Date: Mar 10, 2008 History of Hepatitis B Vaccine: No Allergies Coded Allergies: Methyl Salicylate (Verified Allergy, Unknown, RASH, 06/14/17) Nickel (Verified Allergy, Unknown, RASH, 06/14/17) Zinc (Verified Allergy, Unknown, RASH, 06/14/17) Diphenhydramine (Verified Adverse Reaction, Intermediate, BURNING EYES, DIZZY,BLISTERS, 06/14/17) Medications Artificial Tear Solution (Artificial Tears), 2 DROPS OP QID Aspirin (Aspirin Ec), 81 MG PO QAM Atorvastatin (Lipitor), 40 MG PO HS Carboxymethylcellulose Sodium (Refresh), 1 DROP OPB QID PRN for DRYNESS Cholecalciferol (Vitamin D3), 2,000 INTERUNIT PO QAM Diclofenac Sodium (Topical) (Voltaren 1% Top Gel), 1 DOSE EXT QID Docusate Sodium (Docusate Sodium), 100 MG PO BID Ferrous Sulfate (Kp Ferrous Sulfate), 325 MG PO BID Folic Acid (Folvite), 1 MG PO QAM Furosemide (Lasix), 20 MG PO DAILY Gabapentin (Neurontin), 300 MG PO Q12 Insulin Aspart (Novolog Flexpen), UNITS SQ ACHS Insulin Glargine (Lantus Solostar), 38 UNITS SQ BID Lactulose (Chronulac), 30 ML PO TID Magnesium Oxide (Mag-Ox), 400 MG PO QAM Metformin HCl (Metformin HCl), 500 MG PO BIDM Metformin Hcl (Glucophage), 500 MG PO BIDM Multiple Vitamins W/ Minerals (Preservision Areds 2), 1 CAP PO BID Nadolol (Corgard), 20 MG PO DAILY Pantoprazole (Protonix), 40 MG PO BID Rifaximin (Xifaxan), 550 MG PO BID Ropinirole Hydrochloride (Requip), 0.5 MG PO HS [diclofenac gel], 1 APPLN EXT QID [eye promise], 1 TAB PO BID Review of Systems Constitutional: + fever, + fatigue, No chills, No sweats, No weakness Eyes: + worsening of vision (chronic), No eye pain, No diplopia ENT: + sore throat, No hearing loss, No nasal symptoms, No trouble swallowing Respiratory: + cough, + sputum, + shortness of breath, + dyspnea on exertion, No wheezing, No dyspnea at rest, No hemoptysis Cardiovascular: No chest pain, No edema, No palpitations Abdomen: No pain, No nausea, No vomiting, No diarrhea, No constipation, No problem reported Genitourinary - Female: No dysuria Physical Exam Vital Signs (24 Hours) Date Time Temp Pulse Resp B/P (MAP) Pulse Ox O2 Delivery O2 Flow Rate FiO2 06/14/17 14:38 37.4 72 18 94/52 (66) 97 Room Air 06/14/17 11:16 93 Room Air 06/14/17 11:12 69 18 92 Room Air 06/14/17 07:23 38.0 71 20 127/65 (85) 99 Room Air 06/14/17 07:01 74 16 97 Room Air 06/14/17 06:23 37.2 75 20 127/56 06/14/17 05:54 37.2 75 20 127/56 (79) 99 Room Air 06/14/17 04:57 88 18 115/37 06/14/17 03:57 80 20 140/50 96 Room Air 06/14/17 02:22 37.1 06/14/17 01:51 97 Room Air 06/14/17 01:41 76 06/14/17 01:38 76 20 133/62 98 Room Air 06/14/17 00:27 39.0 79 18 135/64 96 Room Air General Appearance: WD/WN, no apparent distress Head: normocephalic, atraumatic ENT: hearing grossly normal Neck: supple, trachea midline Respiratory/Chest: chest non-tender, lungs clear, no respiratory distress, no accessory muscle use, + wheezing (faint expiratory wheeze in left upper lobe) Cardiovascular: regular rate, rhythm, no gallop, no JVD, no murmur, normal peripheral pulses Abdomen/GI: normal bowel sounds, non tender, soft, no organomegaly (limited by body habitus), no pulsatile mass Back: no CVA tenderness Extremities/Musculoskelatal: no calf tenderness, non-tender, + pedal edema ( mild pitting edema group home up the shins bilaterally) Neurologic/Psych: no motor/sensory deficits, + pertinent finding (slowed cognitive function. Speaks slowly, has difficulty finding words, and is slow to respond. ) Diagnostics Laboratory Results Results Past 24 Hours Test 06/14/17 01:10 06/14/17 01:13 06/14/17 02:00 06/14/17 05:07 Range/Units White Blood Count 5.24 4.8-10.8 K/uL Red Blood Count 2.87 4.2-5.4 M/uL Hemoglobin 9.4 12.0-16.0 g/dL Hematocrit 28.1 37-47 % Mean Corpuscular Volume 97.9 80-100 fL Mean Corpuscular Hemoglobin 32.8 25-34 pg Mean Corpuscular Hemoglobin Concent 33.5 32-36 g/dl Platelet Count 63 130-400 K/uL Mean Platelet Volume 10.7 7.4-10.4 fL Neutrophils (%) (Auto) 59.6 % Lymphocytes (%) (Auto) 26.1 % Monocytes (%) (Auto) 11.8 % Eosinophils (%) (Auto) 1.9 % Basophils (%) (Auto) 0.4 % Neutrophils # (Auto) 3.12 1.4-6.5 K/uL Lymphocytes # (Auto) 1.37 1.2-3.4 K/uL Monocytes # (Auto) 0.62 0.11-0.59 K/uL Eosinophils # (Auto) 0.10 0-0.5 K/uL Basophils # (Auto) 0.02 0-0.2 K/uL RDW Standard Deviation 70.4 36.4-46.3 fL RDW Coefficient of Variation 19.8 11.5-14.5 % Immature Granulocyte % (Auto) 0.2 % Immature Granulocyte # (Auto) 0.01 0.00-0.02 K/uL Platelet Estimate DECREASED Anisocytosis PRESENT Ovalocytes 1+ Prothrombin Time 12.9 9.0-12.0 SECONDS Prothromb Time International Ratio 1.2 0.9-1.1 Activated Partial Thromboplast Time 28.7 21.0-31.0 SECONDS Partial Thromboplastin Ratio 1.1 Sodium Level 146 136-145 mmol/L Potassium Level 3.0 3.5-5.1 mmol/L Chloride Level 112 98-107 mmol/L Carbon Dioxide Level 18 21-32 mmol/L Anion Gap 16.0 3-11 mmol/L Blood Urea Nitrogen 15 7-18 mg/dl Creatinine 1.02 0.60-1.20 mg/dl Est Creatinine Clear Calc Drug Dose 53.3 ml/min Estimated GFR () 65.9 Estimated GFR (Non- 56.9 BUN/Creatinine Ratio 15.1 10-20 Random Glucose 149 70-99 mg/dl Calcium Level 8.7 8.5-10.1 mg/dl Total Bilirubin 1.6 0.2-1 mg/dl Aspartate Amino Transf (AST/SGOT) 106 15-37 U/L Alanine Aminotransferase (ALT/SGPT) 42 12-78 U/L Alkaline Phosphatase 163 45-117 U/L Ammonia 110.0 11-32 umol/L Total Creatine Kinase 200 26-192 U/L Creatine Kinase MB 1.2 0.5-3.6 ng/ml Creatine Kinase MB Ratio 0.6 0-3.0 Troponin I 0.017 0-0.045 ng/ml Total Protein 6.5 6.4-8.2 gm/dl Albumin 2.5 3.4-5.0 gm/dl Globulin 4.0 2.5-4.0 gm/dl Albumin/Globulin Ratio 0.6 0.9-2 Bedside Lactic Acid Venous 6.19 0.90-1.70 mmol/L Urine Color DK YELLOW Urine Appearance CLEAR CLEAR Urine pH 5.5 4.5-7.5 Urine Specific [place] 1.029 1.000-1.030 Urine Protein 1+ NEG Urine Glucose (UA) NEG NEG Urine Ketones TRACE NEG Urine Occult Blood NEG NEG Urine Nitrite NEG NEG Urine Bilirubin NEG NEG Urine Urobilinogen NEG NEG Urine Leukocyte Esterase NEG NEG Urine WBC (Auto) 1-5 0-5 /hpf Urine RBC (Auto) 0-4 0-4 /hpf Urine Hyaline Casts (Auto) 0 0-5 /lpf Urine Epithelial Cells (Auto) 5-10 0-5 /lpf Urine Bacteria (Auto) NEG NEG Lactic Acid Level 5.4 0.4-2.0 mmol/L Test 06/14/17 05:58 06/14/17 08:12 06/14/17 09:00 06/14/17 11:22 Range/Units White Blood Count 4.28 4.8-10.8 K/uL Red Blood Count 2.62 4.2-5.4 M/uL Hemoglobin 8.7 12.0-16.0 g/dL Hematocrit 25.8 37-47 % Mean Corpuscular Volume 98.5 80-100 fL Mean Corpuscular Hemoglobin 33.2 25-34 pg Mean Corpuscular Hemoglobin Concent 33.7 32-36 g/dl Platelet Count 52 130-400 K/uL Mean Platelet Volume 10.3 7.4-10.4 fL Neutrophils (%) (Auto) 63.0 % Lymphocytes (%) (Auto) 26.2 % Monocytes (%) (Auto) 8.9 % Eosinophils (%) (Auto) 1.2 % Basophils (%) (Auto) 0.5 % Neutrophils # (Auto) 2.70 1.4-6.5 K/uL Lymphocytes # (Auto) 1.12 1.2-3.4 K/uL Monocytes # (Auto) 0.38 0.11-0.59 K/uL Eosinophils # (Auto) 0.05 0-0.5 K/uL Basophils # (Auto) 0.02 0-0.2 K/uL RDW Standard Deviation 71.8 36.4-46.3 fL RDW Coefficient of Variation 20.0 11.5-14.5 % Immature Granulocyte % (Auto) 0.2 % Immature Granulocyte # (Auto) 0.01 0.00-0.02 K/uL Anisocytosis PRESENT Sodium Level 148 136-145 mmol/L Potassium Level 3.2 3.5-5.1 mmol/L Chloride Level 113 98-107 mmol/L Carbon Dioxide Level 19 21-32 mmol/L Anion Gap 16.0 3-11 mmol/L Blood Urea Nitrogen 18 7-18 mg/dl Creatinine 0.84 0.60-1.20 mg/dl Est Creatinine Clear Calc Drug Dose 64.7 ml/min Estimated GFR () 83.4 Estimated GFR (Non- 71.9 BUN/Creatinine Ratio 20.9 10-20 Random Glucose 105 70-99 mg/dl Lactic Acid Level 4.8 0.4-2.0 mmol/L Calcium Level 8.8 8.5-10.1 mg/dl Total Bilirubin 1.4 0.2-1 mg/dl Aspartate Amino Transf (AST/SGOT) 99 15-37 U/L Alanine Aminotransferase (ALT/SGPT) 36 12-78 U/L Alkaline Phosphatase 147 45-117 U/L Total Protein 5.9 6.4-8.2 gm/dl Albumin 2.3 3.4-5.0 gm/dl Globulin 3.6 2.5-4.0 gm/dl Albumin/Globulin Ratio 0.6 0.9-2 Bedside Glucose 104 192 70-90 mg/dl Influenza Type A (RT-PCR) Neg for Influ A NEG Influenza Type A Antigen Neg for Influ A NEG Influenza Type B Antigen Neg for Influ B NEG Influenza Type B (RT-PCR) Neg for Influ B NEG Microbiology Results 06/14/17 Blood Culture, Received Pending 06/14/17 Blood Culture, Received Pending 06/14/17 MRSA DNA Surveillance Screen - Final, Complete Specimen Negative for MRSA by DNA Probe 06/14/17 Urine Culture, Received Pending Diagnostic Radiology CHEST ONE VIEW PORTABLE CLINICAL HISTORY: 66 years-old Female presenting with Sepsis. TECHNIQUE: Portable upright AP view of the chest was obtained. COMPARISON: 04/28/2017. FINDINGS: Atherosclerosis of aortic arch. Cardiac silhouette normal size. Minimal left basilar opacity persists. No new focal infiltrate. Suggestion of mild bronchial wall thickening, unchanged. Mildly low lung volumes. No large effusion or pneumothorax. Osseous structures normal. Upper abdomen normal. IMPRESSION: 1. Mildly low lung volumes with persistent minimal left basilar opacity, likely atelectasis. 2. Bronchial wall thickening, nonspecific and can be seen in the setting of volume overload, reactive airways disease, or viral bronchiolitis among other etiologies. Electronically signed by: Maury Lucas M.D. 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 Fever: source is unclear at this time. Urine and blood cultures are pending. White count is normal to low, but not lower than 4k. Non-tachypneic, non- tachycardic, normotensive. Meets 1/4 of SIRS criteria. However history of pancytopenia may be affecting her ability to elevate her WBC in response to infection. Lacks UTI symptoms, lacks pneumonia findings, does not show any cellulitis like skin rashes, no abdominal pain. Source is to be determined. Has received vancomycin, levofloxacin, daptomycin, and cefepime. Plan: Currently treating with broad coverage. Continue with cefepime and levofloxacin treatment. Await culture results. Repeat CBC and BMP tomorrow. Monitor vitals. NAFLD: Likely causing hepatic encephalopathy (Ammonia of 110.0) and the mental slowing seen on exam. No history of TIPS, but given her portal hypertension, this may be beneficial, but not necessary at this hospitalization. Currently on lactulose 20gm PO TID and rifaxamin 550mg PO BID. Plan: Continue lactulose 20gm PO TID and rifaximin 550mg PO BID. GI consult. Repeat LFTs and ammonia tomorrow. Repeat Coagulation panel prior to discharge. Anemia: Chronic, likely folate or B12 (high normal MCV). 9.4 initially, 8.7 recently. Plan: Continue Folate and iron supplementation. Repeat CBC tomorrow. If continues to trend down, make preparations for transfusion. Restless leg: Stable, manage outpatient Plan: Continue ropinirole 0.5mg PO HS HTN: Relatively normotensive. Had one hypotensive episode. Plan: Continue nadolol 20mg PO daily and furosemide 20mg PO daily HLD and CAD: LFT's elevated, given her NAFLD. There is hesitation about continuing statin therapy. However, her LFT's are not overly elevated. Plan: Continue current atorvastatin 40mg PO HS with caution for LFT elevation. Continue Aspirin 81mg PO daily. Diabetes: 100-200 range. On Glargine 38 units BID and sliding scale insulin. Asymptomatic. Plan: Continue current insulin therapy. IBS: No complaints per patient. Plan: continue Pantoprazole 40mg PO BID. Level of Care Med/Surg Advanced Directives Existing Advance Directive: No Existing Living Will: No Existing Power of Quality Controller: No DVT Prophylaxis patient low risk - not indicated (thrombocytopenic, hepatic cirrhosis, on aspirin)
[2017-06-14] MEDS: ATORVASTATIN 40 MG TAB PO SCH (20:53)
[2017-06-14] MEDS: ROPINIROLE HCL 0.25 MG TAB PO SCH (20:55)
[2017-06-15] VITALS (10 sets, daily range): BP systolic 94–106; BP diastolic 48–57; PULSE 64–72; TEMP 36.7–37.1; O2SAT 93–98
[2017-06-15] MEDS: CEFEPIME IV 2,000 MG in SYRINGE 7.5 ML IV SCH ×3 (01:48→18:52)
[2017-06-15 06:13] LABS: HEMATOCRIT 25.1 % (37-47); MEAN CELL VOLUME 99.6 fL (80-100); MEAN CORPUSCULAR HEMOGLOBIN 32.5 pg (25-34); MEAN CORPUSCULAR HGB CONC 32.7 g/dl (32-36); RED BLOOD COUNT 2.52 M/uL (4.2-5.4); WHITE BLOOD COUNT 3.32 K/uL (4.8-10.8)
[2017-06-15 06:16] LABS: MEAN PLATELET VOLUME 10.5 fL (7.4-10.4); PLATELET COUNT 44 K/uL (130-400)
[2017-06-15 06:45] LABS: BUN/CREATININE RATIO 21.5 (10-20); CALCIUM 7.9 mg/dl (8.5-10.1); CREATININE 0.84 mg/dl (0.60-1.20); POTASSIUM 3.5 mmol/L (3.5-5.1)
[2017-06-15 06:48] LABS: ALB/GLOB RATIO 0.5 (0.9-2)
[2017-06-15] MEDS: ALBUT/IPRATROP 3MG/0.5MG NEB 3 ML VIAL INH SCH ×4 (07:01→19:09)
[2017-06-15] MEDS ORDERED: INSULIN GLARGINE SOLOSTAR 100 UNITS/ML 3 ML PEN SQ SCH (08:00)
--- NOTE | 2017-06-15 08:32 | Clinical Documentation Query ---
QUERY 1 OF [address] ROBERTSON, In your clinical opinion is this patient being managed for: ( x ) Sepsis, POA ( ) Not Agree ( ) Other explanation of clinical findings (Please Explain) ( ) Unable to determine (Please Define) ( ) Need to Discuss The medical record reflects the following clinical findings, treatment, and risk factors. Clinical Indicators: 66 yo female presenting with fever, cough and confusion. T 39, lactic acid 5.4, some hypotension 94/52. Treatment: 500 cc NSS bolus then continuous, IV vancomycin, IV cefepime, IV levaquin, duonebs, blood and urine cx pending Risk Factors:suspected pneumonia, DM, VELEZ QUERY 2 OF 2 In your clinical opinion is this patient being managed for: (x ) Acute hepatic encephalopathy ( ) Not Agree ( ) Other explanation of clinical findings (Please Explain) ( ) Unable to determine (Please Define) ( ) Need to Discuss The medical record reflects the following clinical findings, treatment, and risk factors. Clinical Indicators: Pt with confusion, slow to respond, lethargy. Ammonia level 110. Treatment: IV fluids, increase lactulose to qid and continue rifaximin, repeat ammonia level Risk Factors: VELEZ, suspected pneumonia, possible sepsis Please clarify and document your clinical opinion in the progress notes and discharge summary. Terms such as "probable", "suspected", "likely", "questionable", "possible", or "still to be ruled out" are acceptable. IF IN AGREEMENT, YOU MUST DOCUMENT ABOVE DIAGNOSTIC STATEMENT IN DAILY PROGRESS NOTES AND DISCHARGE SUMMARY. This document is not part of the patient's record. Thank You, Kimberley Taveras, RN [phone]
[2017-06-15] MEDS: INSULIN ASPART 100 UNITS/ML 3 ML PEN SC SCH ×4 (08:33→21:00)
--- NOTE | 2017-06-15 08:37 | Clinical Documentation Query ---
QUERY 1 OF [address] KNUTSON, In your clinical opinion is this patient being managed for: ( x ) Sepsis, POA ( ) Not Agree ( ) Other explanation of clinical findings (Please Explain) ( ) Unable to determine (Please Define) ( ) Need to Discuss The medical record reflects the following clinical findings, treatment, and risk factors. Clinical Indicators: 66 yo female presenting with fever, cough and confusion. T 39, lactic acid 5.4, some hypotension 94/52. Treatment: 500 cc NSS bolus then continuous, IV vancomycin, IV cefepime, IV levaquin, duonebs, blood and urine cx pending Risk Factors:suspected pneumonia, DM, VELEZ QUERY 2 OF 2 In your clinical opinion is this patient being managed for: ( x ) Acute hepatic encephalopathy ( ) Not Agree ( ) Other explanation of clinical findings (Please Explain) ( ) Unable to determine (Please Define) ( ) Need to Discuss The medical record reflects the following clinical findings, treatment, and risk factors. Clinical Indicators: Pt with confusion, slow to respond, lethargy. Ammonia level 110. Treatment: IV fluids, increase lactulose to qid and continue rifaximin, repeat ammonia level Risk Factors: VELEZ, suspected pneumonia, possible sepsis Please clarify and document your clinical opinion in the progress notes and discharge summary. Terms such as "probable", "suspected", "likely", "questionable", "possible", or "still to be ruled out" are acceptable. IF IN AGREEMENT, YOU MUST DOCUMENT ABOVE DIAGNOSTIC STATEMENT IN DAILY PROGRESS NOTES AND DISCHARGE SUMMARY. This document is not part of the patient's record. Thank You, Kimberley Taveras, RN [phone]
[2017-06-15] MEDS: ARTIFICIAL TEARS OP SOLN OP SCH ×8 (08:46→20:18)
[2017-06-15] MEDS: LACTULOSE SYRUP 20 GM/30 ML UDC PO SCH ×4 (08:46→20:18)
[2017-06-15] MEDS: CEROVITE ADV FORMULA TAB PO SCH ×2 (08:47→20:19)
[2017-06-15] MEDS: POTASSIUM CHLORIDE 20 MEQ TABCR PO SCH ×2 (08:47→20:21)
[2017-06-15] MEDS: GABAPENTIN 300 MG CAP PO SCH ×2 (08:47→20:20)
[2017-06-15] MEDS: FERROUS SULFATE 325 MG TAB PO SCH ×2 (08:47→16:27)
[2017-06-15] MEDS: METFORMIN HCL 500 MG TAB PO SCH ×2 (08:47→16:28)
[2017-06-15] MEDS: RIFAXIMIN TAB 550 MG TAB PO SCH ×2 (08:47→20:20)
[2017-06-15] MEDS: PANTOprazole SOD 40 MG TAB PO SCH ×2 (08:47→20:19)
[2017-06-15] MEDS: FUROSEMIDE 20 MG TAB PO SCH (08:48)
[2017-06-15] MEDS: NADOLOL 40 MG TAB PO SCH (08:48)
[2017-06-15] MEDS: ASPIRIN 81 MG ECTAB PO SCH (08:48)
[2017-06-15] MEDS: CHOLECALCIFEROL 1000 INTER.UNIT TAB PO SCH (08:49)
[2017-06-15] MEDS: DOCUSATE SODIUM 100 MG CAP PO SCH ×2 (08:49→20:00)
[2017-06-15] MEDS: MAGNESIUM OXIDE 400 MG TAB PO SCH (08:49)
[2017-06-15] MEDS: INSULIN GLARGINE SOLOSTAR 100 UNITS/ML 3 ML PEN SQ SCH ×2 (08:58→21:45)
--- NOTE | 2017-06-15 09:25 | Family Medicine Progress Note ---
Progress Note Date of Service Jun 15, 2017. Subjective Pt evaluation today including: conversation w/ patient, physical exam, chart review, lab review, review of studies Pt reports streaks of blood in sputum. Pt reports feeling better today. Denies fever, sorethroat, NVD. Constitutional: No fever, No chills, No sweats ENT: + problem reported (right sided neck pain) Respiratory: + cough, + sputum, + hemoptysis Abdomen: No pain, No nausea, No vomiting, No diarrhea Medications Current Inpatient Medications Medications (Trade) Dose Ordered Sig/Kole Route Start Time Stop Time Status Last Admin Dose Admin Acetaminophen (Tylenol Tab) 650 mg Q4H PRN PO 06/14/17 04:15 07/14/17 04:14 Ondansetron HCl (Zofran Inj) 4 mg Q6H PRN IV 06/14/17 04:15 07/14/17 04:14 Aspirin (Ecotrin Tab) 81 mg QAM PO 06/14/17 08:00 07/14/17 08:59 06/15/17 08:48 81 MG Atorvastatin Calcium (Lipitor Tab) 40 mg HS PO 06/14/17 21:00 07/14/17 20:59 06/14/17 20:53 40 MG Diclofenac Sodium (Voltaren 1% Top Gel) 1 appln QID PRN EXT 06/14/17 04:15 07/14/17 04:14 Docusate Sodium (coLACE CAP) 100 mg BID PO 06/14/17 08:00 07/14/17 08:59 06/15/17 08:49 100 MG Folic Acid (Folvite Tab) 1 mg QAM PO 06/14/17 08:00 07/14/17 08:59 06/15/17 08:48 1 MG Furosemide (Lasix Tab) 20 mg DAILY PO 06/14/17 08:00 07/14/17 08:59 06/15/17 08:48 20 MG Gabapentin (Neurontin Cap) 300 mg Q12 PO 06/14/17 09:00 07/14/17 08:59 06/15/17 08:47 300 MG Magnesium Oxide (Mag-Ox Tab) 400 mg QAM PO 06/14/17 08:00 07/14/17 08:59 06/15/17 08:49 400 MG Metformin HCl (Glucophage Tab) 500 mg BIDM PO 06/14/17 08:00 07/14/17 07:59 06/15/17 08:47 500 MG Nadolol (Corgard Tab) 20 mg DAILY PO 06/14/17 08:00 07/14/17 08:59 06/15/17 08:48 20 MG Pantoprazole Sodium (Protonix Tab) 40 mg BID PO 06/14/17 08:00 07/14/17 08:59 06/15/17 08:47 40 MG Rifaximin (Xifaxan Tab) 550 mg BID PO 06/14/17 08:00 07/14/17 08:59 06/15/17 08:47 550 MG Ropinirole HCl (Requip Tab) 0.5 mg HS PO 06/14/17 21:00 07/14/17 20:59 06/14/17 20:55 0.5 MG Multivitamins/ Minerals (Multivitamin W/ Minerals Tab) 1 tab BID PO 06/14/17 08:00 07/14/17 08:59 06/15/17 08:47 1 TAB Artificial Tears (Artificial Tears) 2 drops QID OP 06/14/17 08:00 07/14/17 08:59 06/15/17 11:01 2 DROPS Cholecalciferol (Vitamin D Tab) 2,000 inter.unit QAM PO 06/14/17 08:00 07/14/17 08:59 06/15/17 08:49 2,000 INTER.UNIT Ferrous Sulfate (Feosol Tab) 325 mg BIDM PO 06/14/17 08:00 07/14/17 07:59 06/15/17 08:47 325 MG Albuterol/ Ipratropium (Duoneb) 3 ml QIDR INH 06/14/17 08:00 07/14/17 07:59 06/15/17 15:17 3 ML Insulin Aspart (novoLOG ASPART) SLIDING SCALE If C... ACHS SC 06/14/17 07:00 07/14/17 06:59 06/15/17 13:04 7 UNITS Glucose (Glucose 40% Gel) 15-30 GRAMS 15 GRAMS... UD PRN PO 06/14/17 05:45 07/14/17 05:44 Glucose (Glucose Chew Tab) 4-8 Tablets 4 Tabl... UD PRN PO 06/14/17 05:45 07/14/17 05:44 Dextrose (Dextrose 50% 50ML Syringe) 25-50ML OF 50% DW IV FOR... UD PRN IV 06/14/17 05:45 07/14/17 05:44 Glucagon (Glucagon Inj) 1 mg UD PRN SQ 06/14/17 05:45 07/14/17 05:44 Potassium Chloride (Klor-Con Tab) 20 meq BID PO 06/14/17 09:00 07/14/17 08:59 06/15/17 08:47 20 MEQ Cefepime HCl 2000 mg/Syringe 20 ml @ 5 mls/min Q8H IV 06/14/17 10:00 06/21/17 09:59 06/15/17 08:50 5 MLS/MIN Levofloxacin 750 mg/Prmx 150 ml @ 100 mls/hr Q24H IV 06/14/17 11:00 06/21/17 10:59 06/15/17 11:00 100 MLS/HR Levofloxacin (Consult) 1 ea UD PRN N/A 06/14/17 08:00 07/14/17 07:59 Cefepime HCl (Consult) 1 ea UD PRN N/A 06/14/17 08:00 07/14/17 07:59 Lactulose (Chronulac Syrup) 20 gm QID PO 06/15/17 08:00 07/14/17 08:59 06/15/17 11:01 20 GM Insulin Glargine (Lantus Solostar Pen) 15 units BID SQ 06/15/17 08:00 07/14/17 08:59 06/15/17 08:58 15 UNITS Objective Vital Signs Date Time Temp Pulse Resp B/P (MAP) Pulse Ox O2 Delivery O2 Flow Rate FiO2 06/15/17 09:08 94 Room Air 06/15/17 07:01 69 18 93 Room Air 06/15/17 06:46 37.0 64 12 98/57 (71) 95 Room Air 06/15/17 00:19 36.9 65 20 101/56 (71) 96 Room Air 06/15/17 00:05 Room Air 06/14/17 20:15 Room Air 06/14/17 19:14 73 18 96 Room Air 06/14/17 16:00 93 Room Air 06/14/17 15:22 71 18 93 Room Air 06/14/17 14:38 37.4 72 18 94/52 (66) 97 Room Air 06/14/17 11:16 93 Room Air 06/14/17 11:12 69 18 92 Room Air Physical Exam General Appearance: WD/WN, no apparent distress Neck: supple, + pertinent finding (right sided cervical pain) Respiratory/Chest: chest non-tender, lungs clear, normal breath sounds, no respiratory distress, no accessory muscle use Cardiovascular: regular rate, rhythm, no edema, no gallop, no JVD, no murmur Abdomen: normal bowel sounds, non tender, soft, no organomegaly Neurologic/Psychiatric: alert, normal mood/affect, oriented x 3 Skin: normal color, warm/dry, no rash Laboratory Results 06/15/17 06:05 06/15/17 06:05 Test 06/15/17 06:04 06/15/17 06:05 06/15/17 08:04 Ammonia 35.0 umol/L (11-32) Red Blood Count 2.52 M/uL (4.2-5.4) Mean Corpuscular Volume 99.6 fL (80-100) Mean Corpuscular Hemoglobin 32.5 pg (25-34) Mean Corpuscular Hemoglobin Concent 32.7 g/dl (32-36) RDW Standard Deviation 74.9 fL (36.4-46.3) RDW Coefficient of Variation 20.4 % (11.5-14.5) Mean Platelet Volume 10.5 fL (7.4-10.4) Anion Gap 10.0 mmol/L (3-11) Est Creatinine Clear Calc Drug Dose 66.6 ml/min Estimated GFR () 83.4 Estimated GFR (Non- 71.9 BUN/Creatinine Ratio 21.5 (10-20) Lactic Acid Level 1.8 mmol/L (0.4-2.0) Calcium Level 7.9 mg/dl (8.5-10.1) Total Bilirubin 1.2 mg/dl (0.2-1) Aspartate Amino Transf (AST/SGOT) 75 U/L (15-37) Alanine Aminotransferase (ALT/SGPT) 32 U/L (12-78) Alkaline Phosphatase 121 U/L (45-117) Total Protein 5.4 gm/dl (6.4-8.2) Albumin 1.9 gm/dl (3.4-5.0) Globulin 3.5 gm/dl (2.5-4.0) Albumin/Globulin Ratio 0.5 (0.9-2) Bedside Glucose 80 mg/dl (70-90) Assessment and Plan 66 y/o female Hx DM, Cirrhosis, esophageal varices, portal HTN, pancytopenia, dementia, asymptomatic hematochromatosis. Presented with fever, cough, neck pain and shortness of breath similar to her symptoms when she had pneumonia a month ago. Lactic acid in the ER POC 6.19 Sepsis POA - fever with lactic acidosis and low wbc source unclear urine and blood cx pending. CXR negative. continue broad spectrum abx - cefepime and levofloxacin diarrhea likely due to lactulose. no concern for c diff since already improving Acute hepatic encephalopathy - grade 1 with h/o cirrhosis supportive care mentation improved today. ammonia level down to 35 continue lactulose qid and rifaximin carbs snacks and no protein restriction encourage ambulation continue nadolol. holding lasix Diarrhea with h/o IBS and on lactulose follow Dehydration -1/2 NS 80ml/s holding lasix Hemoptysis - equivocal CXR but having productive cough - Continue cefepime, add levaquin. Dced Vanco. Negative MRSA - Influenza swab negative - incentive spirometry, flutter valve, duonebs Thrombocytopenia/anemia - likely related to cirrhosis - trend, defer chemical anticoagulation HLD and CAD: -Continue atorvastatin with caution for LFT elevation. Continue Aspirin 81mg PO daily. T2DM - Lantus 38 units BID - Novolog 10 correction, 4 carb coverage - BSG ACHS Restless leg: Continue ropinirole 0.5mg PO HS Reviewed: Pt Seen/Exam by Me History having loose stools - worse today. no fever now more alert today Constitutional: denies: fever Respiratory: negative: short of breath Cardiovascular: denies chest pain General Appearance: no apparent distress Respiratory: lungs clear, no respiratory distress Cardiovascular: regular rate, rhythm Neurologic/Psychiatric: alert, oriented x 3 Skin Characteristics: warm/dry Assessment/Plan Resident Physician Supervision Note: I independently interviewed and examined the patient and verified the bal[place]ena history and physical, reviewed labs and image studies, discussed the case with the resident Dr. Rome and agree with the findings and care plan.
--- NOTE | 2017-06-15 10:51 | DIAGNOSTIC IMAGING REPORT ---
CHEST 2 VIEWS ROUTINE CLINICAL HISTORY: hemoptysis, cough COMPARISON STUDY: 06/14/2017 FINDINGS: The heart is mildly enlarged. There is mild interstitial thickening similar to the prior study. There is no lobar consolidation. Increased markings the right infrahilar region, likely represent a patient. There are linear left basilar atelectatic changes. There is no significant pleural fluid.[ IMPRESSION: Stable mild interstitial thickening. No evidence of lobar consolidation Electronically signed by: Cristhian Frost M.D. 06/15/2017 10:49 AM Dictated Date/Time: 06/15/2017 10:48 AM
[2017-06-15] MEDS: LEVOFLOXACIN / D5W 750 MG in PREMIXED IN D5W 150 ML IV SCH (11:00)
--- NOTE | 2017-06-15 15:20 | Medical Student: [facility] ---
Med Student Progress Note Date of Service Jun 15, 2017. Subjective Pt evaluation today including: conversation w/ patient, physical exam, lab review, review of studies Telma is doing better. She feels her word finding is improving. She is AAOx3, she has been afebrile. She had about 10 watery, non-painful bowel movements yesterday however and an episode of hemoptysis. Denies n/v/constipation, abdominal pain, chest pain, shortness of breath, abdominal swelling. Review of Systems Constitutional: + see HPI Objective Vital Signs Date Time Temp Pulse Resp B/P (MAP) Pulse Ox O2 Delivery O2 Flow Rate FiO2 06/15/17 11:17 65 18 94 Room Air 06/15/17 11:11 37.1 68 18 106/48 (67) 94 Room Air 06/15/17 09:08 94 Room Air 06/15/17 08:00 95 Room Air 06/15/17 07:01 69 18 93 Room Air 06/15/17 06:46 37.0 64 12 98/57 (71) 95 Room Air 06/15/17 00:19 36.9 65 20 101/56 (71) 96 Room Air 06/15/17 00:05 Room Air 06/14/17 20:15 Room Air 06/14/17 19:14 73 18 96 Room Air 06/14/17 16:00 93 Room Air 06/14/17 15:22 71 18 93 Room Air Physical Exam General Appearance: WD/WN, no apparent distress ENT: hearing grossly normal Neck: supple, trachea midline Respiratory/Chest: chest non-tender, lungs clear, normal breath sounds, no respiratory distress, no accessory muscle use Cardiovascular: regular rate, rhythm, no edema, no gallop, no JVD, no murmur Abdomen: normal bowel sounds, non tender, soft, no organomegaly, no pulsatile mass Extremities: non-tender, normal inspection, no pedal edema, no calf tenderness Neurologic/Psychiatric: alert (More alert than yesterday. Less mental slowing observed. Able to carry a conversation better today. ), normal mood/affect, oriented x 3, + pertinent finding (Slowed movements on finger to nose testing, some difficulties tracking moving object during finger to nose testing but this may be due to decreased vision in left eye. Alternating movements were coordinated, but slowed. No asterixis observed) Laboratory Results Last 24 Hours Test 06/14/17 16:22 06/14/17 20:53 06/14/17 23:30 06/15/17 04:04 Bedside Glucose 103 mg/dl 76 mg/dl 82 mg/dl 88 mg/dl Test 06/15/17 06:04 06/15/17 06:05 06/15/17 08:04 06/15/17 11:23 Ammonia 35.0 umol/L White Blood Count 3.32 K/uL Red Blood Count 2.52 M/uL Hemoglobin 8.2 g/dL Hematocrit 25.1 % Mean Corpuscular Volume 99.6 fL Mean Corpuscular Hemoglobin 32.5 pg Mean Corpuscular Hemoglobin Concent 32.7 g/dl RDW Standard Deviation 74.9 fL RDW Coefficient of Variation 20.4 % Platelet Count 44 K/uL Mean Platelet Volume 10.5 fL Sodium Level 147 mmol/L Potassium Level 3.5 mmol/L Chloride Level 116 mmol/L Carbon Dioxide Level 21 mmol/L Anion Gap 10.0 mmol/L Blood Urea Nitrogen 18 mg/dl Creatinine 0.84 mg/dl Est Creatinine Clear Calc Drug Dose 66.6 ml/min Estimated GFR () 83.4 Estimated GFR (Non- 71.9 BUN/Creatinine Ratio 21.5 Random Glucose 81 mg/dl Lactic Acid Level 1.8 mmol/L Calcium Level 7.9 mg/dl Total Bilirubin 1.2 mg/dl Aspartate Amino Transf (AST/SGOT) 75 U/L Alanine Aminotransferase (ALT/SGPT) 32 U/L Alkaline Phosphatase 121 U/L Total Protein 5.4 gm/dl Albumin 1.9 gm/dl Globulin 3.5 gm/dl Albumin/Globulin Ratio 0.5 Bedside Glucose 80 mg/dl 155 mg/dl Assessment and Plan Assessment and Plan: Telma is a 66 yo female with history notable for 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 Fever: source is still unclear at this time. Recent diarrhea may be suggestive of c.diff colitis, however her abdomen is non-tender and she is on lactulose. Urine and blood cultures are pending. White count is below 4 today. Non- tachypneic, non-tachycardic, normotensive. Meets 2/4 of SIRS criteria (fever and WBC <4). Lacks UTI symptoms, lacks pneumonia findings, does not show any cellulitis like skin rashes, no abdominal pain or distension. Source is to be determined. Has received vancomycin, levofloxacin, daptomycin, and cefepime. Plan: Currently treating with broad coverage. Continue with cefepime and levofloxacin treatment. Await culture results. Repeat CBC and BMP tomorrow. Monitor vitals. May consider oral vancomycin if diarrhea continues or abdominal pain develops. NAFLD: Likely causing hepatic encephalopathy (Ammonia of 110.0, now 35) and the mental slowing seen on exam (improved today). No history of TIPS, but given her portal hypertension, this may be beneficial in helping with varices but will likely worsen encephalopathy. Currently on lactulose 20gm PO TID and rifaxamin 550mg PO BID. Recent hemoptysis is concerning for possible variceal bleed. Uncertain if the blood was truly from the lungs or not. But either way is concerning given her hepatic failure and being predisposed to coagulation difficulties. Plan: Continue lactulose 20gm PO TID and rifaximin 550mg PO BID. GI consult and possible EGD if hemoptysis continues or worsens. Repeat LFTs and ammonia tomorrow. Repeat Coagulation panel prior to discharge. Do not restrict protein from diet. Provide complex carbohydrate snacks to prevent fasting, as this may increase ammonia. Encourage ambulation as muscle wasting can worsen ammonia. Anemia: Chronic, likely folate or B12 (high normal MCV). 9.4 initially, 8.2 recently. Plan: Continue Folate and iron supplementation. Repeat CBC tomorrow. If continues to trend down, make preparations for transfusion. Restless leg: Stable, manage outpatient Plan: Continue ropinirole 0.5mg PO HS HTN: Generally hypotensive, may be dehydrated from diarrhea. BUN/Cr ratio has been rising since admission. Plan: Continue nadolol 20mg PO daily and HOLD furosemide HLD and CAD: LFT's elevated, given her NAFLD. There is hesitation about continuing statin therapy. However, her LFT's are not overly elevated and have been resolving. Plan: Continue current atorvastatin 40mg PO HS with caution for LFT elevation. Continue Aspirin 81mg PO daily. Diabetes: 80-150 range. On Glargine 38 units BID and sliding scale insulin. Asymptomatic. Plan: Continue current insulin therapy. Notify if hypoglycemic IBS: No complaints per patient. Plan: continue Pantoprazole 40mg PO BID. Continued [facility] stay due to: other (pancytopenia and unknown source of fever)
[2017-06-15] MEDS: SODIUM CHLORIDE 0.45% 1000ML 1,000 ML IV SCH (16:22)
[2017-06-15] MEDS: ATORVASTATIN 40 MG TAB PO SCH (20:22)
[2017-06-15] MEDS: ROPINIROLE HCL 0.25 MG TAB PO SCH (20:23)
[2017-06-16] VITALS (9 sets, daily range): BP systolic 93–118; BP diastolic 48–65; PULSE 68–75; TEMP 36.9–37.1; O2SAT 93–98
[2017-06-16] MEDS: CEFEPIME IV 2,000 MG in SYRINGE 7.5 ML IV SCH ×2 (01:43→10:02)
[2017-06-16] MEDS: SODIUM CHLORIDE 0.45% 1000ML 1,000 ML IV SCH (04:32)
[2017-06-16 06:27] LABS: CREATININE 0.81 mg/dl (0.60-1.20)
[2017-06-16] MEDS: INSULIN ASPART 100 UNITS/ML 3 ML PEN SC SCH ×4 (06:30→20:34)
--- NOTE | 2017-06-16 06:57 | Family Medicine Progress Note ---
Progress Note Date of Service Jun 16, 2017. Subjective Pt evaluation today including: conversation w/ patient, physical exam, chart review, lab review Today patient still reports a cough and sneezing. She reports coughing up clots of blood mixed in sputum. Also reports sinus tenderness and ear pressure. Overall feeling better, denies fever overnight. She also reports vague soreness in bilateral shoulders; she has been using a walker to ambulate Constitutional: No fever, No chills, No sweats Respiratory: + cough, + sputum, + shortness of breath, No wheezing, No dyspnea on exertion Cardiovascular: No chest pain, No orthopnea, No palpitations Abdomen: No pain, No nausea, No vomiting, No diarrhea Medications Current Inpatient Medications Medications (Trade) Dose Ordered Sig/Kole Route Start Time Stop Time Status Last Admin Dose Admin Acetaminophen (Tylenol Tab) 650 mg Q4H PRN PO 06/14/17 04:15 07/14/17 04:14 Ondansetron HCl (Zofran Inj) 4 mg Q6H PRN IV 06/14/17 04:15 07/14/17 04:14 Aspirin (Ecotrin Tab) 81 mg QAM PO 06/14/17 08:00 07/14/17 08:59 06/15/17 08:48 81 MG Atorvastatin Calcium (Lipitor Tab) 40 mg HS PO 06/14/17 21:00 07/14/17 20:59 06/15/17 20:22 40 MG Diclofenac Sodium (Voltaren 1% Top Gel) 1 appln QID PRN EXT 06/14/17 04:15 07/14/17 04:14 Docusate Sodium (coLACE CAP) 100 mg BID PO 06/14/17 08:00 07/14/17 08:59 06/15/17 08:49 100 MG Folic Acid (Folvite Tab) 1 mg QAM PO 06/14/17 08:00 07/14/17 08:59 06/15/17 08:48 1 MG Furosemide (Lasix Tab) 20 mg DAILY PO 06/14/17 08:00 07/14/17 08:59 Future Hold 06/15/17 08:48 20 MG Gabapentin (Neurontin Cap) 300 mg Q12 PO 06/14/17 09:00 07/14/17 08:59 06/15/17 20:20 300 MG Magnesium Oxide (Mag-Ox Tab) 400 mg QAM PO 06/14/17 08:00 07/14/17 08:59 06/15/17 08:49 400 MG Metformin HCl (Glucophage Tab) 500 mg BIDM PO 06/14/17 08:00 07/14/17 07:59 06/15/17 16:28 500 MG Nadolol (Corgard Tab) 20 mg DAILY PO 06/14/17 08:00 07/14/17 08:59 06/15/17 08:48 20 MG Pantoprazole Sodium (Protonix Tab) 40 mg BID PO 06/14/17 08:00 07/14/17 08:59 06/15/17 20:19 40 MG Rifaximin (Xifaxan Tab) 550 mg BID PO 06/14/17 08:00 07/14/17 08:59 06/15/17 20:20 550 MG Ropinirole HCl (Requip Tab) 0.5 mg HS PO 06/14/17 21:00 07/14/17 20:59 06/15/17 20:23 0.5 MG Multivitamins/ Minerals (Multivitamin W/ Minerals Tab) 1 tab BID PO 06/14/17 08:00 07/14/17 08:59 06/15/17 20:19 1 TAB Artificial Tears (Artificial Tears) 2 drops QID OP 06/14/17 08:00 07/14/17 08:59 06/15/17 20:18 2 DROPS Cholecalciferol (Vitamin D Tab) 2,000 inter.unit QAM PO 06/14/17 08:00 07/14/17 08:59 06/15/17 08:49 2,000 INTER.UNIT Ferrous Sulfate (Feosol Tab) 325 mg BIDM PO 06/14/17 08:00 07/14/17 07:59 06/15/17 16:27 325 MG Albuterol/ Ipratropium (Duoneb) 3 ml QIDR INH 06/14/17 08:00 07/14/17 07:59 06/15/17 19:09 3 ML Insulin Aspart (novoLOG ASPART) SLIDING SCALE If C... ACHS SC 06/14/17 07:00 07/14/17 06:59 06/15/17 17:56 12 UNITS Glucose (Glucose 40% Gel) 15-30 GRAMS 15 GRAMS... UD PRN PO 06/14/17 05:45 07/14/17 05:44 Glucose (Glucose Chew Tab) 4-8 Tablets 4 Tabl... UD PRN PO 06/14/17 05:45 07/14/17 05:44 Dextrose (Dextrose 50% 50ML Syringe) 25-50ML OF 50% DW IV FOR... UD PRN IV 06/14/17 05:45 07/14/17 05:44 Glucagon (Glucagon Inj) 1 mg UD PRN SQ 06/14/17 05:45 07/14/17 05:44 Potassium Chloride (Klor-Con Tab) 20 meq BID PO 06/14/17 09:00 07/14/17 08:59 06/15/17 20:21 20 MEQ Cefepime HCl 2000 mg/Syringe 20 ml @ 5 mls/min Q8H IV 06/14/17 10:00 06/21/17 09:59 06/16/17 01:43 5 MLS/MIN Levofloxacin 750 mg/Prmx 150 ml @ 100 mls/hr Q24H IV 06/14/17 11:00 06/21/17 10:59 06/15/17 11:00 100 MLS/HR Levofloxacin (Consult) 1 ea UD PRN N/A 06/14/17 08:00 07/14/17 07:59 Cefepime HCl (Consult) 1 ea UD PRN N/A 06/14/17 08:00 07/14/17 07:59 Lactulose (Chronulac Syrup) 20 gm QID PO 06/15/17 08:00 07/14/17 08:59 06/15/17 20:18 20 GM Insulin Glargine (Lantus Solostar Pen) 15 units BID SQ 06/15/17 08:00 07/14/17 08:59 06/15/17 21:45 15 UNITS Sodium Chloride 1,000 ml @ 80 mls/hr [id number] IV 06/15/17 16:00 06/16/17 15:59 06/16/17 04:32 80 MLS/HR Objective Vital Signs Date Time Temp Pulse Resp B/P (MAP) Pulse Ox O2 Delivery O2 Flow Rate FiO2 06/16/17 00:22 36.9 75 20 118/65 (82) 98 Room Air 06/16/17 00:00 Room Air 06/15/17 19:10 66 18 93 Room Air 06/15/17 16:00 Room Air 06/15/17 15:34 36.7 66 18 94/52 (66) 98 Room Air 06/15/17 15:08 72 18 95 Room Air 06/15/17 11:17 65 18 94 Room Air 06/15/17 11:11 37.1 68 18 106/48 (67) 94 Room Air 06/15/17 09:08 94 Room Air 06/15/17 08:00 95 Room Air 06/15/17 07:01 69 18 93 Room Air Physical Exam General Appearance: WD/WN, no apparent distress ENT: normal ENT inspection Neck: supple, no adenopathy Respiratory/Chest: chest non-tender, lungs clear, normal breath sounds, no respiratory distress, no accessory muscle use Cardiovascular: regular rate, rhythm, no edema, no gallop, no JVD, no murmur Abdomen: normal bowel sounds, non tender, soft, no organomegaly, no pulsatile mass Neurologic/Psychiatric: alert, normal mood/affect, oriented x 3 Skin: normal color, warm/dry, no rash Laboratory Results Test 06/15/17 19:46 06/16/17 05:42 06/16/17 06:45 06/16/17 06:49 Bedside Glucose 127 mg/dl (70-90) Est Creatinine Clear Calc Drug Dose 69.1 ml/min Assessment and Plan 66 y/o female Hx DM, Cirrhosis, esophageal varices, portal HTN, pancytopenia, dementia, asymptomatic hematochromatosis. Presented with fever, cough, neck pain and shortness of breath similar to her symptoms when she had pneumonia a month ago. Lactic acid in the ER POC 6.19 Sepsis POA - fever with lactic acidosis and low wbc source unclear urine and blood cx negative. CXR negative. will d/c cefepime. continue levaquin diarrhea likely due to lactulose. no concern for c diff since already improving Acute hepatic encephalopathy - grade 1 with h/o cirrhosis supportive care mentation worse again today - likely from lack of sleep last night. ammonia level today 48 continue lactulose qid and rifaximin carbs snacks and no protein restriction encourage ambulation continue nadolol. holding lasix Diarrhea with h/o IBS and on lactulose follow Dehydration NS 80ml/hr holding lasix Hemoptysis - equivocal CXR but having productive cough - d/c cefepime with negative culture. continue levaquin Dced Vanco. Negative MRSA - Influenza swab negative - incentive spirometry, flutter valve, duonebs Thrombocytopenia/anemia - likely related to cirrhosis - trend, defer chemical anticoagulation HLD and CAD: -Continue atorvastatin with caution for LFT elevation. Continue Aspirin 81mg PO daily. T2DM - Lantus 38 units BID - Novolog 10 correction, 4 carb coverage - BSG ACHS Restless leg: Continue ropinirole 0.5mg PO HS Reviewed: Pt Seen/Exam by Me History feeling more tired this morning didn't get any sleep Constitutional: denies: fever Respiratory: negative: short of breath Cardiovascular: denies chest pain General Appearance: no apparent distress (slow speech) Respiratory: lungs clear, no respiratory distress Cardiovascular: regular rate, rhythm Neurologic/Psychiatric: oriented x 3, other (slow to responses) Skin Characteristics: warm/dry Assessment/Plan Resident Physician Supervision Note: I independently interviewed and examined the patient and verified the [place]ena history and physical, reviewed labs and image studies, discussed the case with the resident Dr. Rome and agree with the findings and care plan.
[2017-06-16 07:03] LABS: HEMATOCRIT 25.6 % (37-47); MEAN CELL VOLUME 98.1 fL (80-100); MEAN CORPUSCULAR HEMOGLOBIN 33.3 pg (25-34); RED BLOOD COUNT 2.61 M/uL (4.2-5.4); WHITE BLOOD COUNT 3.06 K/uL (4.8-10.8)
[2017-06-16] MEDS: ALBUT/IPRATROP 3MG/0.5MG NEB 3 ML VIAL INH SCH ×4 (07:15→18:53)
[2017-06-16 07:35] LABS: BUN/CREATININE RATIO 25.2 (10-20); CALCIUM 7.7 mg/dl (8.5-10.1); CREATININE 0.8 mg/dl (0.60-1.20); POTASSIUM 3.6 mmol/L (3.5-5.1)
[2017-06-16 07:37] LABS: ALB/GLOB RATIO 0.6 (0.9-2)
[2017-06-16 07:48] LABS: MEAN PLATELET VOLUME 10.5 fL (7.4-10.4); PLATELET COUNT 44 K/uL (130-400)
[2017-06-16 08:13] LABS: ANISOCYTOSIS PRESENT; BASO % 0.3 %; BASO ABS # 0.01 K/uL (0-0.2); COMPLETE YES; EOS % 3.3 %; IG% 0.3 %; LYMPH ABS # 0.98 K/uL (1.2-3.4); MONO % 10.5 %; NEUT % 53.6 %; VACUOLIZATION 1+
[2017-06-16] MEDS: DOCUSATE SODIUM 100 MG CAP PO SCH ×2 (08:38→20:00)
[2017-06-16] MEDS: NADOLOL 40 MG TAB PO SCH (08:39)
[2017-06-16] MEDS: FERROUS SULFATE 325 MG TAB PO SCH ×2 (08:40→17:53)
[2017-06-16] MEDS: ASPIRIN 81 MG ECTAB PO SCH (08:40)
[2017-06-16] MEDS: POTASSIUM CHLORIDE 20 MEQ TABCR PO SCH ×2 (08:41→20:25)
[2017-06-16] MEDS: METFORMIN HCL 500 MG TAB PO SCH ×2 (08:41→17:54)
[2017-06-16] MEDS: CEROVITE ADV FORMULA TAB PO SCH ×2 (08:41→20:26)
[2017-06-16] MEDS: PANTOprazole SOD 40 MG TAB PO SCH ×2 (08:41→20:26)
[2017-06-16] MEDS: MAGNESIUM OXIDE 400 MG TAB PO SCH (08:41)
[2017-06-16] MEDS: GABAPENTIN 300 MG CAP PO SCH ×2 (08:42→20:24)
[2017-06-16] MEDS: RIFAXIMIN TAB 550 MG TAB PO SCH ×2 (08:42→20:25)
[2017-06-16] MEDS: CHOLECALCIFEROL 1000 INTER.UNIT TAB PO SCH (08:42)
[2017-06-16] MEDS: LACTULOSE SYRUP 20 GM/30 ML UDC PO SCH ×4 (08:42→20:22)
[2017-06-16] MEDS: ARTIFICIAL TEARS OP SOLN OP SCH ×8 (08:42→20:27)
[2017-06-16] MEDS: INSULIN GLARGINE SOLOSTAR 100 UNITS/ML 3 ML PEN SQ SCH ×2 (08:50→20:36)
[2017-06-16] MEDS: LEVOFLOXACIN / D5W 750 MG in PREMIXED IN D5W 150 ML IV SCH (11:12)
--- NOTE | 2017-06-16 13:21 | Medical Student: [facility] ---
Med Student Progress Note Date of Service Jun 16, 2017. Subjective Pt evaluation today including: conversation w/ patient, physical exam, lab review, review of studies Telma is feeling ok today. She feels about the same today as yesterday. She says she had about 5 watery, non-bloody bowel movements yesterday. Had one episode of red tinged sputum this morning. No abdominal pain, no distension, no chest pain, no shortness of breath, no edema, no n/v, no fever or chills. She feels her word finding and mental fogginess is a little better today. Review of Systems Constitutional: + see HPI Abdomen: + see HPI Neurologic: + see HPI Psychiatric: + see HPI Objective Vital Signs Date Time Temp Pulse Resp B/P (MAP) Pulse Ox O2 Delivery O2 Flow Rate FiO2 06/16/17 11:09 68 15 93 Room Air 06/16/17 08:30 93 Room Air 06/16/17 08:16 Room Air 06/16/17 07:15 73 16 93 Room Air 06/16/17 07:12 37.1 73 18 110/58 (75) 93 Room Air 06/16/17 00:22 36.9 75 20 118/65 (82) 98 Room Air 06/16/17 00:00 Room Air 06/15/17 19:10 66 18 93 Room Air 06/15/17 16:00 Room Air 06/15/17 15:34 36.7 66 18 94/52 (66) 98 Room Air 06/15/17 15:08 72 18 95 Room Air Physical Exam General Appearance: WD/WN, no apparent distress ENT: hearing grossly normal Neck: supple, no carotid bruits (Right sided bruit, however is likely due to radiation of aortic murmur), trachea midline Respiratory/Chest: chest non-tender, lungs clear, normal breath sounds, no respiratory distress, no accessory muscle use Cardiovascular: regular rate, rhythm, no edema, no gallop, no JVD, + systolic murmur (3/6, heard over aortic valve with radiation up the right carotid) Abdomen: normal bowel sounds, non tender, soft, no organomegaly, no pulsatile mass Extremities: non-tender, normal inspection, no pedal edema, no calf tenderness Neurologic/Psychiatric: alert, normal mood/affect, + pertinent finding (Finger to nose testing improved from yesterday (faster movement, more accurate at a distance), showed no intention tremor. Rapid alternating movement testing was improved and normal on left side, but showed discoordintion with right hand and this is different from yesterday. No asterixes. No pronator drift.) Laboratory Results Last 24 Hours Test 06/15/17 16:22 06/15/17 19:46 06/16/17 05:42 06/16/17 06:45 Bedside Glucose 138 mg/dl 127 mg/dl Creatinine 0.81 mg/dl 0.80 mg/dl Est Creatinine Clear Calc Drug Dose 69.1 ml/min 70.0 ml/min Estimated GFR () 87.1 88.4 Estimated GFR (Non- 75.2 76.3 Sodium Level 142 mmol/L Potassium Level 3.6 mmol/L Chloride Level 115 mmol/L Carbon Dioxide Level 20 mmol/L Anion Gap 7.0 mmol/L Blood Urea Nitrogen 20 mg/dl BUN/Creatinine Ratio 25.2 Random Glucose 87 mg/dl Calcium Level 7.7 mg/dl Total Bilirubin 1.0 mg/dl Aspartate Amino Transf (AST/SGOT) 78 U/L Alanine Aminotransferase (ALT/SGPT) 33 U/L Alkaline Phosphatase 119 U/L Total Protein 5.6 gm/dl Albumin 2.1 gm/dl Globulin 3.5 gm/dl Albumin/Globulin Ratio 0.6 Test 06/16/17 06:49 06/16/17 07:31 06/16/17 11:20 White Blood Count 3.06 K/uL Red Blood Count 2.61 M/uL Hemoglobin 8.7 g/dL Hematocrit 25.6 % Mean Corpuscular Volume 98.1 fL Mean Corpuscular Hemoglobin 33.3 pg Mean Corpuscular Hemoglobin Concent 34.0 g/dl Platelet Count 44 K/uL Mean Platelet Volume 10.5 fL Neutrophils (%) (Auto) 53.6 % Lymphocytes (%) (Auto) 32.0 % Monocytes (%) (Auto) 10.5 % Eosinophils (%) (Auto) 3.3 % Basophils (%) (Auto) 0.3 % Neutrophils # (Auto) 1.64 K/uL Lymphocytes # (Auto) 0.98 K/uL Monocytes # (Auto) 0.32 K/uL Eosinophils # (Auto) 0.10 K/uL Basophils # (Auto) 0.01 K/uL RDW Standard Deviation 72.1 fL RDW Coefficient of Variation 20.1 % Immature Granulocyte % (Auto) 0.3 % Immature Granulocyte # (Auto) 0.01 K/uL Toxic Vacuolation 1+ Anisocytosis PRESENT Ammonia 48.0 umol/L Bedside Glucose 94 mg/dl 144 mg/dl Assessment and Plan Assessment and Plan: Telma is a 66 yo female with history notable for 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 Fever: source is still unclear at this time. Recent diarrhea may be suggestive of c.diff colitis, however her abdomen is non-tender and she is on lactulose. Urine and blood cultures are negative. White count is below 4 (3.06, down from 3.32 yesterday) today. Non-tachypneic, non-tachycardic, normotensive. Meets 2/4 of SIRS criteria (fever and WBC <4). Lacks UTI symptoms, lacks pneumonia findings, does not show any cellulitis like skin rashes, no abdominal pain or distension, and no joint swelling or pain complaints. Source is to be determined. Has received vancomycin, levofloxacin, daptomycin, and cefepime. Plan: Currently treating with broad coverage. Continue with cefepime and levofloxacin treatment. Repeat CBC and BMP tomorrow. Monitor vitals. May consider oral vancomycin if diarrhea continues or abdominal pain develops. NAFLD: Likely causing hepatic encephalopathy (Ammonia of 110.0 initially, 35 yesterday morning, and 48 today) and the mental slowing seen on exam (slight decline from yesterday). Did not sleep well last night (pt estimates 30 minutes) , and can be adding to encephalopathy symptoms. Exam today was concerning in that unilateral decline in coordination with alternating movements was observed , this may need followed with head CT. No history of TIPS, but given her portal hypertension, this may be beneficial in helping with varices but will likely worsen encephalopathy. Currently on lactulose 20gm PO TID and rifaxamin 550mg PO BID. Recent hemoptysis is concerning for possible variceal bleed. Uncertain if the blood was truly from the lungs or not. But either way is concerning given her hepatic failure and being predisposed to coagulation difficulties. Plan: Consider head CT for assessment of unilateral coordination concern. Continue lactulose 20gm PO TID and rifaximin 550mg PO BID. GI consult and possible EGD if hemoptysis continues or worsens. Consider occult heme stool test. Repeat LFTs and ammonia tomorrow. Repeat Coagulation panel prior to discharge. Do not restrict protein from diet. Provide complex carbohydrate snacks to prevent fasting, as this may increase ammonia. Encourage ambulation as muscle wasting can worsen ammonia. Anemia: Chronic, likely folate or B12 (high normal MCV). 8.2 yesterday and 8.7 today. Plan: Continue Folate and iron supplementation. Repeat CBC tomorrow. If continues to trend down. Restless leg: Stable, manage outpatient Plan: Continue ropinirole 0.5mg PO HS HTN: Generally low normal BP, may be dehydrated from diarrhea. BUN/Cr ratio has been rising since admission (15.1 to 25.2). Plan: Continue nadolol 20mg PO daily and HOLD furosemide and continue IVF 80mL/ hr HLD and CAD: LFT's elevated, given her NAFLD. There is hesitation about continuing statin therapy. However, her LFT's are not overly elevated and have been resolving. Plan: Continue current atorvastatin 40mg PO HS with caution for LFT elevation. Continue Aspirin 81mg PO daily. Diabetes: 95-150 range. On Glargine 15 units BID and sliding scale insulin. Asymptomatic. Plan: Continue current insulin therapy. Notify if hypoglycemic IBS: No complaints per patient. Plan: continue Pantoprazole 40mg PO BID. Continued [facility] stay due to: other (pancytopenia and unknown source of fever)
[2017-06-16] MEDS: ATORVASTATIN 40 MG TAB PO SCH (20:23)
[2017-06-16] MEDS: ROPINIROLE HCL 0.25 MG TAB PO SCH (20:26)
[2017-06-17] VITALS (11 sets, daily range): BP systolic 84–107; BP diastolic 45–61; PULSE 61–67; TEMP 36.4–36.7; O2SAT 93–99
[2017-06-17 05:42] LABS: HEMATOCRIT 25.4 % (37-47); MEAN CELL VOLUME 99.2 fL (80-100); MEAN CORPUSCULAR HEMOGLOBIN 32.8 pg (25-34); MEAN CORPUSCULAR HGB CONC 33.1 g/dl (32-36); RED BLOOD COUNT 2.56 M/uL (4.2-5.4); WHITE BLOOD COUNT 2.41 K/uL (4.8-10.8)
[2017-06-17 05:47] LABS: MEAN PLATELET VOLUME 10.7 fL (7.4-10.4); PLATELET COUNT 47 K/uL (130-400)
[2017-06-17 06:16] LABS: BUN/CREATININE RATIO 18.7 (10-20); CALCIUM 7.7 mg/dl (8.5-10.1); CREATININE 0.81 mg/dl (0.60-1.20); POTASSIUM 3.8 mmol/L (3.5-5.1)
[2017-06-17 06:19] LABS: ALB/GLOB RATIO 0.5 (0.9-2)
[2017-06-17 06:38] LABS: ANISOCYTOSIS PRESENT; BASO % 0.4 %; BASO ABS # 0.01 K/uL (0-0.2); COMPLETE YES; EOS % 3.7 %; LARGE PLATELETS 1+; LYMPH ABS # 0.94 K/uL (1.2-3.4); MONO % 12.4 %; NEUT % 44.5 %; OVALOCYTES 1+
[2017-06-17] MEDS: ALBUT/IPRATROP 3MG/0.5MG NEB 3 ML VIAL INH SCH ×4 (06:52→18:48)
[2017-06-17] MEDS: DOCUSATE SODIUM 100 MG CAP PO SCH ×2 (08:00→20:00)
[2017-06-17] MEDS: LACTULOSE SYRUP 20 GM/30 ML UDC PO SCH ×4 (08:00→20:11)
[2017-06-17] MEDS: CHOLECALCIFEROL 1000 INTER.UNIT TAB PO SCH (08:02)
[2017-06-17] MEDS: PANTOprazole SOD 40 MG TAB PO SCH ×2 (08:02→20:12)
[2017-06-17] MEDS: CEROVITE ADV FORMULA TAB PO SCH ×2 (08:02→20:15)
[2017-06-17] MEDS: NADOLOL 40 MG TAB PO SCH (08:02)
[2017-06-17] MEDS: METFORMIN HCL 500 MG TAB PO SCH ×2 (08:02→17:40)
[2017-06-17] MEDS: POTASSIUM CHLORIDE 20 MEQ TABCR PO SCH ×2 (08:03→20:14)
[2017-06-17] MEDS: RIFAXIMIN TAB 550 MG TAB PO SCH ×2 (08:03→20:14)
[2017-06-17] MEDS: MAGNESIUM OXIDE 400 MG TAB PO SCH (08:03)
[2017-06-17] MEDS: FERROUS SULFATE 325 MG TAB PO SCH ×2 (08:04→17:39)
[2017-06-17] MEDS: GABAPENTIN 300 MG CAP PO SCH ×2 (08:04→20:12)
[2017-06-17] MEDS: ASPIRIN 81 MG ECTAB PO SCH (08:04)
[2017-06-17] MEDS: ARTIFICIAL TEARS OP SOLN OP SCH ×8 (08:05→20:16)
[2017-06-17] MEDS: INSULIN ASPART 100 UNITS/ML 3 ML PEN SC SCH ×4 (09:02→20:16)
[2017-06-17] MEDS: INSULIN GLARGINE SOLOSTAR 100 UNITS/ML 3 ML PEN SQ SCH ×2 (09:03→22:26)
[2017-06-17] MEDS: LEVOFLOXACIN / D5W 750 MG in PREMIXED IN D5W 150 ML IV SCH (11:20)
--- NOTE | 2017-06-17 14:17 | Medical Student: [facility] ---
Med Student Progress Note Date of Service Jun 17, 2017. Subjective Pt evaluation today including: conversation w/ patient, physical exam, chart review, lab review Today Telma feels slightly better. She slept more last night than the previous night. She still feels tired however. Mentioned blood on her tissue after blowing her nose this morning, otherwise denies hemoptysis or other bleeding. Denies fever, chills, n/v, abdominal swelling, edema, chest pain, shortness of breath, rash, skin changes, and abdominal pain. Review of Systems Constitutional: + see HPI Objective Vital Signs Date Time Temp Pulse Resp B/P (MAP) Pulse Ox O2 Delivery O2 Flow Rate FiO2 06/17/17 12:05 90/50 (63) 06/17/17 11:14 61 16 96 Room Air 06/17/17 11:06 36.6 63 18 88/46 (60) 97 Room Air 06/17/17 10:31 95 Room Air 06/17/17 09:00 95 Room Air 06/17/17 07:51 36.7 66 16 107/58 (74) 95 Room Air 06/17/17 06:52 67 16 93 Room Air 06/17/17 00:00 Room Air 06/16/17 23:49 37.0 73 20 108/60 (76) 94 Room Air 06/16/17 18:54 71 16 95 Room Air 06/16/17 16:00 Room Air 06/16/17 15:07 75 17 98 Room Air 06/16/17 14:49 37.0 71 18 93/48 (63) 95 Room Air Physical Exam General Appearance: WD/WN, no apparent distress ENT: hearing grossly normal Neck: no carotid bruits, trachea midline Respiratory/Chest: chest non-tender, lungs clear, normal breath sounds, no respiratory distress, no accessory muscle use Cardiovascular: regular rate, rhythm, no edema, no gallop, no JVD, + systolic murmur (1/6 holosystolic heard best over aortic valve, radiates up R carotid. Much quieter than yesterday.) Abdomen: normal bowel sounds, non tender, soft, no organomegaly, no pulsatile mass Extremities: non-tender, normal inspection, no pedal edema, no calf tenderness Neurologic/Psychiatric: alert, oriented x 3, + depressed affect (mild mental slowing, improved from yesterday.) Laboratory Results Last 24 Hours Test 06/16/17 16:12 06/16/17 20:04 06/17/17 05:27 06/17/17 07:41 Bedside Glucose 132 mg/dl 140 mg/dl 99 mg/dl White Blood Count 2.41 K/uL Red Blood Count 2.56 M/uL Hemoglobin 8.4 g/dL Hematocrit 25.4 % Mean Corpuscular Volume 99.2 fL Mean Corpuscular Hemoglobin 32.8 pg Mean Corpuscular Hemoglobin Concent 33.1 g/dl Platelet Count 47 K/uL Mean Platelet Volume 10.7 fL Neutrophils (%) (Auto) 44.5 % Lymphocytes (%) (Auto) 39.0 % Monocytes (%) (Auto) 12.4 % Eosinophils (%) (Auto) 3.7 % Basophils (%) (Auto) 0.4 % Neutrophils # (Auto) 1.07 K/uL Lymphocytes # (Auto) 0.94 K/uL Monocytes # (Auto) 0.30 K/uL Eosinophils # (Auto) 0.09 K/uL Basophils # (Auto) 0.01 K/uL RDW Standard Deviation 74.3 fL RDW Coefficient of Variation 20.3 % Immature Granulocyte % (Auto) 0.0 % Immature Granulocyte # (Auto) 0.00 K/uL Large Platelets 1+ Anisocytosis PRESENT Ovalocytes 1+ Sodium Level 143 mmol/L Potassium Level 3.8 mmol/L Chloride Level 115 mmol/L Carbon Dioxide Level 20 mmol/L Anion Gap 8.0 mmol/L Blood Urea Nitrogen 15 mg/dl Creatinine 0.81 mg/dl Est Creatinine Clear Calc Drug Dose 69.1 ml/min Estimated GFR () 87.1 Estimated GFR (Non- 75.2 BUN/Creatinine Ratio 18.7 Random Glucose 97 mg/dl Calcium Level 7.7 mg/dl Total Bilirubin 0.9 mg/dl Aspartate Amino Transf (AST/SGOT) 87 U/L Alanine Aminotransferase (ALT/SGPT) 33 U/L Alkaline Phosphatase 128 U/L Ammonia 43.0 umol/L Total Protein 5.6 gm/dl Albumin 1.9 gm/dl Globulin 3.7 gm/dl Albumin/Globulin Ratio 0.5 Lipase 222 U/L Test 06/17/17 11:52 Bedside Glucose 184 mg/dl Assessment and Plan Assessment and Plan: Telma is a 66 yo female with history notable for 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 Fever: source is still unclear at this time but has likely resolved. Recent diarrhea may be suggestive of c.diff colitis, however her abdomen is non-tender and she is on lactulose. Urine and blood cultures are negative. White count is below 4 (3.06, down from 3.32 yesterday) today. Non-tachypneic, non-tachycardic , normotensive. Meets 2/4 of SIRS criteria (fever and WBC <4). Lacks UTI symptoms, lacks pneumonia findings, does not show any cellulitis like skin rashes, no abdominal pain or distension, and no joint swelling or pain complaints. Source is to be determined. Has received vancomycin, levofloxacin, daptomycin, and cefepime. Plan: Currently treating with broad coverage. Discontinued cefepime. Currently on levofloxacin treatment. Repeat CBC and BMP tomorrow. Monitor vitals. May consider CT of abdomen or US guided aspiration of fluid to assess for source of infection. Leukopenia: Cause of this is unknown still. Continues to decrease, 2.41 today in addition to pancytopenia. Has not been showing signs of infection, so malignant causes may need to be explored given age and severity. Plan: I think consulting hematology at this point would be useful. Repeat CBC tomorrow. NAFLD: Likely causing hepatic encephalopathy (Ammonia of 110.0 initially, 43 today) and the mental slowing seen on exam (improved from yesterday). Slept some last night, but can be adding to encephalopathy symptoms. Currently on lactulose 20gm PO TID and rifaxamin 550mg PO BID. Recent hemoptysis is concerning for possible variceal bleed. Uncertain if the blood was truly from the lungs or not. But either way is concerning given her hepatic failure and being predisposed to coagulation difficulties. Plan: Continue lactulose 20gm PO TID and rifaximin 550mg PO BID. GI consult and possible EGD if hemoptysis continues or worsens. Consider occult heme stool test. Repeat LFTs and ammonia tomorrow. Repeat Coagulation panel prior to discharge. Do not restrict protein from diet. Provide complex carbohydrate snacks to prevent fasting, as this may increase ammonia. Encourage ambulation as muscle wasting can worsen ammonia. Anemia: Chronic, likely folate or B12 (high normal MCV). 8.7 yesterday and 8.4 today. Plan: Continue Folate and iron supplementation. Repeat CBC tomorrow.. Restless leg: Stable, manage outpatient Plan: Continue ropinirole 0.5mg PO HS HTN: Hypotensive, may be dehydrated from diarrhea. BUN/Cr ratio has been rising since admission (15.1 to 25.2) but today decreased from 25.2 to 18.7. Plan: Continue nadolol 20mg PO daily and HOLD furosemide and continue IVF 80mL/ hr HLD and CAD: LFT's elevated, given her NAFLD. There is hesitation about continuing statin therapy. However, her LFT's are not overly elevated and have been resolving. Plan: Continue current atorvastatin 40mg PO HS with caution for LFT elevation. Continue Aspirin 81mg PO daily. Diabetes: 95-150 range. On Glargine 15 units BID and sliding scale insulin. Asymptomatic. Plan: Continue current insulin therapy. Notify if hypoglycemic IBS: No complaints per patient. Plan: continue Pantoprazole 40mg PO BID. Continued [facility] stay due to: other (pancytopenia and unknown source of fever)
--- NOTE | 2017-06-17 16:13 | Family Medicine Progress Note ---
Progress Note Date of Service Jun 17, 2017. Subjective Pt evaluation today including: conversation w/ patient, physical exam, chart review, lab review, review of studies Pt is feeling better today. Still complains of cough and sneezing. Pt denies fevers. Constitutional: No fever, No chills, No sweats ENT: + nasal symptoms Respiratory: + cough, + sputum, No wheezing, No shortness of breath, No dyspnea on exertion Cardiovascular: No chest pain, No edema, No palpitations Abdomen: No pain, No nausea, No vomiting, No diarrhea, No constipation Medications Current Inpatient Medications Medications (Trade) Dose Ordered Sig/Kole Route Start Time Stop Time Status Last Admin Dose Admin Acetaminophen (Tylenol Tab) 650 mg Q4H PRN PO 06/14/17 04:15 07/14/17 04:14 Ondansetron HCl (Zofran Inj) 4 mg Q6H PRN IV 06/14/17 04:15 07/14/17 04:14 Aspirin (Ecotrin Tab) 81 mg QAM PO 06/14/17 08:00 07/14/17 08:59 06/17/17 08:04 81 MG Atorvastatin Calcium (Lipitor Tab) 40 mg HS PO 06/14/17 21:00 07/14/17 20:59 06/16/17 20:23 40 MG Diclofenac Sodium (Voltaren 1% Top Gel) 1 appln QID PRN EXT 06/14/17 04:15 07/14/17 04:14 Docusate Sodium (coLACE CAP) 100 mg BID PO 06/14/17 08:00 07/14/17 08:59 06/16/17 08:38 100 MG Folic Acid (Folvite Tab) 1 mg QAM PO 06/14/17 08:00 07/14/17 08:59 06/17/17 08:03 1 MG Furosemide (Lasix Tab) 20 mg DAILY PO 06/14/17 08:00 07/14/17 08:59 Future Hold 06/15/17 08:48 20 MG Gabapentin (Neurontin Cap) 300 mg Q12 PO 06/14/17 09:00 07/14/17 08:59 06/17/17 08:04 300 MG Magnesium Oxide (Mag-Ox Tab) 400 mg QAM PO 06/14/17 08:00 07/14/17 08:59 06/17/17 08:03 400 MG Metformin HCl (Glucophage Tab) 500 mg BIDM PO 06/14/17 08:00 07/14/17 07:59 06/17/17 08:02 500 MG Nadolol (Corgard Tab) 20 mg DAILY PO 06/14/17 08:00 07/14/17 08:59 06/17/17 08:02 20 MG Pantoprazole Sodium (Protonix Tab) 40 mg BID PO 06/14/17 08:00 07/14/17 08:59 06/17/17 08:02 40 MG Rifaximin (Xifaxan Tab) 550 mg BID PO 06/14/17 08:00 07/14/17 08:59 06/17/17 08:03 550 MG Ropinirole HCl (Requip Tab) 0.5 mg HS PO 06/14/17 21:00 07/14/17 20:59 06/16/17 20:26 0.5 MG Multivitamins/ Minerals (Multivitamin W/ Minerals Tab) 1 tab BID PO 06/14/17 08:00 07/14/17 08:59 06/17/17 08:02 1 TAB Artificial Tears (Artificial Tears) 2 drops QID OP 06/14/17 08:00 07/14/17 08:59 06/17/17 12:46 2 DROPS Cholecalciferol (Vitamin D Tab) 2,000 inter.unit QAM PO 06/14/17 08:00 07/14/17 08:59 06/17/17 08:02 2,000 INTER.UNIT Ferrous Sulfate (Feosol Tab) 325 mg BIDM PO 06/14/17 08:00 07/14/17 07:59 06/17/17 08:04 325 MG Albuterol/ Ipratropium (Duoneb) 3 ml QIDR INH 06/14/17 08:00 07/14/17 07:59 06/17/17 15:21 3 ML Insulin Aspart (novoLOG ASPART) SLIDING SCALE If C... ACHS SC 06/14/17 07:00 07/14/17 06:59 06/17/17 12:51 13 UNITS Glucose (Glucose 40% Gel) 15-30 GRAMS 15 GRAMS... UD PRN PO 06/14/17 05:45 07/14/17 05:44 Glucose (Glucose Chew Tab) 4-8 Tablets 4 Tabl... UD PRN PO 06/14/17 05:45 07/14/17 05:44 Dextrose (Dextrose 50% 50ML Syringe) 25-50ML OF 50% DW IV FOR... UD PRN IV 06/14/17 05:45 07/14/17 05:44 Glucagon (Glucagon Inj) 1 mg UD PRN SQ 06/14/17 05:45 07/14/17 05:44 Potassium Chloride (Klor-Con Tab) 20 meq BID PO 06/14/17 09:00 07/14/17 08:59 06/17/17 08:03 20 MEQ Levofloxacin 750 mg/Prmx 150 ml @ 100 mls/hr Q24H IV 06/14/17 11:00 06/21/17 10:59 06/17/17 11:20 100 MLS/HR Levofloxacin (Consult) 1 ea UD PRN N/A 06/14/17 08:00 07/14/17 07:59 Lactulose (Chronulac Syrup) 20 gm QID PO 06/15/17 08:00 07/14/17 08:59 06/17/17 12:46 20 GM Insulin Glargine (Lantus Solostar Pen) 15 units BID SQ 06/15/17 08:00 07/14/17 08:59 06/17/17 09:03 15 UNITS Objective Vital Signs Date Time Temp Pulse Resp B/P (MAP) Pulse Ox O2 Delivery O2 Flow Rate FiO2 06/17/17 16:00 Room Air 06/17/17 15:34 36.4 65 18 103/61 (75) 99 Room Air 06/17/17 15:23 61 16 96 Room Air 06/17/17 12:05 90/50 (63) 06/17/17 11:14 61 16 96 Room Air 06/17/17 11:06 36.6 63 18 88/46 (60) 97 Room Air 06/17/17 10:31 95 Room Air 06/17/17 09:00 95 Room Air 06/17/17 07:51 36.7 66 16 107/58 (74) 95 Room Air 06/17/17 06:52 67 16 93 Room Air 06/17/17 00:00 Room Air 06/16/17 23:49 37.0 73 20 108/60 (76) 94 Room Air 06/16/17 18:54 71 16 95 Room Air Physical Exam General Appearance: WD/WN, no apparent distress Neck: supple, no adenopathy Respiratory/Chest: chest non-tender, lungs clear, normal breath sounds, no respiratory distress, no accessory muscle use Cardiovascular: regular rate, rhythm, no edema, no gallop, no JVD, no murmur Abdomen: normal bowel sounds, non tender, soft, + distended Neurologic/Psychiatric: alert, normal mood/affect, oriented x 3 Skin: normal color, warm/dry, no rash Laboratory Results 06/17/17 05:27 Red Blood Count 2.56, Mean Corpuscular Volume 99.2, Mean Corpuscular Hemoglobin 32.8, Mean Corpuscular Hemoglobin Concent 33.1, Mean Platelet Volume 10.7, Neutrophils (%) (Auto) 44.5, Lymphocytes (%) (Auto) 39.0, Monocytes (%) (Auto) 12.4, Eosinophils (%) (Auto) 3.7, Basophils (%) (Auto) 0.4, Neutrophils # (Auto ) 1.07, Lymphocytes # (Auto) 0.94, Monocytes # (Auto) 0.30, Eosinophils # (Auto ) 0.09, Basophils # (Auto) 0.01 06/17/17 05:27 Test 06/17/17 05:27 06/17/17 11:52 White Blood Count 2.41 K/uL (4.8-10.8) Red Blood Count 2.56 M/uL (4.2-5.4) Hemoglobin 8.4 g/dL (12.0-16.0) Hematocrit 25.4 % (37-47) Mean Corpuscular Volume 99.2 fL (80-100) Mean Corpuscular Hemoglobin 32.8 pg (25-34) Mean Corpuscular Hemoglobin Concent 33.1 g/dl (32-36) Platelet Count 47 K/uL (130-400) Mean Platelet Volume 10.7 fL (7.4-10.4) Neutrophils (%) (Auto) 44.5 % Lymphocytes (%) (Auto) 39.0 % Monocytes (%) (Auto) 12.4 % Eosinophils (%) (Auto) 3.7 % Basophils (%) (Auto) 0.4 % Neutrophils # (Auto) 1.07 K/uL (1.4-6.5) Lymphocytes # (Auto) 0.94 K/uL (1.2-3.4) Monocytes # (Auto) 0.30 K/uL (0.11-0.59) Eosinophils # (Auto) 0.09 K/uL (0-0.5) Basophils # (Auto) 0.01 K/uL (0-0.2) RDW Standard Deviation 74.3 fL (36.4-46.3) RDW Coefficient of Variation 20.3 % (11.5-14.5) Immature Granulocyte % (Auto) 0.0 % Immature Granulocyte # (Auto) 0.00 K/uL (0.00-0.02) Large Platelets 1+ Anisocytosis PRESENT Ovalocytes 1+ Anion Gap 8.0 mmol/L (3-11) Est Creatinine Clear Calc Drug Dose 69.1 ml/min Estimated GFR () 87.1 Estimated GFR (Non- 75.2 BUN/Creatinine Ratio 18.7 (10-20) Calcium Level 7.7 mg/dl (8.5-10.1) Total Bilirubin 0.9 mg/dl (0.2-1) Aspartate Amino Transf (AST/SGOT) 87 U/L (15-37) Alanine Aminotransferase (ALT/SGPT) 33 U/L (12-78) Alkaline Phosphatase 128 U/L (45-117) Ammonia 43.0 umol/L (11-32) Total Protein 5.6 gm/dl (6.4-8.2) Albumin 1.9 gm/dl (3.4-5.0) Globulin 3.7 gm/dl (2.5-4.0) Albumin/Globulin Ratio 0.5 (0.9-2) Lipase 222 U/L (73-393) Bedside Glucose 184 mg/dl (70-90) Date/Time Source Procedure Growth Status 06/17/17 00:00 Stool C.difficile Toxin B Gene (PCR) - Final No C. difficile toxin B gene detected Complete Assessment and Plan 66 y/o female Hx DM, Cirrhosis, esophageal varices, portal HTN, pancytopenia, dementia, asymptomatic hematochromatosis. Presented with fever, cough, neck pain and shortness of breath similar to her symptoms when she had pneumonia a month ago. Lactic acid in the ER POC 6.19 Sepsis POA - fever with lactic acidosis and low wbc Source unclear. Pt is afebrile and stable. Infectious process appears to have resolved urine and blood cx negative. CXR negative. will d/c cefepime. continue levaquin diarrhea persists - likely due to lactulose but since wbc slowly dropping - will r/o C diff Acute hepatic encephalopathy - grade 1 with h/o cirrhosis supportive care mentation improved. ammonia level today 43 continue lactulose qid and rifaximin carbs snacks and no protein restriction encourage ambulation Was seen by PT/OT--recommend home health services or potential inpatient assistance; discussing with patient and case management continue nadolol. holding lasix Diarrhea with h/o IBS and on lactulose follow Dehydration d/c IVF resume lasix on discharge Hemoptysis - equivocal CXR but having productive cough - continue levaquin - d/c cefepime with negative culture. Dced Vanco. Negative MRSA - Influenza swab negative - incentive spirometry, flutter valve, duonebs Thrombocytopenia/anemia - likely related to cirrhosis - trend, defer chemical anticoagulation HLD and CAD: -Continue atorvastatin with caution for LFT elevation. Continue Aspirin 81mg PO daily. T2DM - Lantus 38 units BID - Novolog 10 correction, 4 carb coverage - BSG ACHS Restless leg: Continue ropinirole 0.5mg PO HS Reviewed: Pt Seen/Exam by Me History sitting comfortably in chair had multiple loose stools this am. no fever Constitutional: denies: fever Respiratory: negative: short of breath Cardiovascular: denies chest pain Gastrointestinal/Abdominal: negative: abdominal pain General Appearance: no apparent distress Respiratory: lungs clear, no respiratory distress Cardiovascular: regular rate, rhythm Gastrointestinal: soft Neurologic/Psychiatric: alert, oriented x 3 Skin Characteristics: warm/dry Assessment/Plan Resident Physician Supervision Note: I independently interviewed and examined the patient and verified the [place] history and physical, reviewed labs and image studies, discussed the case with the resident Dr. Rome and agree with the findings and care plan.
[2017-06-17] MEDS: ATORVASTATIN 40 MG TAB PO SCH (20:12)
[2017-06-17] MEDS: ROPINIROLE HCL 0.25 MG TAB PO SCH (20:13)
[2017-06-18] VITALS (7 sets, daily range): BP systolic 97–106; BP diastolic 58–64; PULSE 57–66; TEMP 36.6; O2SAT 94–97
[2017-06-18 05:43] LABS: MEAN CORPUSCULAR HEMOGLOBIN 33.2 pg (25-34); MEAN CORPUSCULAR HGB CONC 33.2 g/dl (32-36)
[2017-06-18 05:44] LABS: MEAN PLATELET VOLUME 10.4 fL (7.4-10.4); PLATELET COUNT 49 K/uL (130-400)
[2017-06-18 06:14] LABS: ANISOCYTOSIS PRESENT; BASO % 0.7 %; BASO ABS # 0.02 K/uL (0-0.2); COMPLETE YES; LARGE PLATELETS 1+; LYMPH ABS # 1.44 K/uL (1.2-3.4); MONO % 9.3 %; OVALOCYTES 1+
[2017-06-18 06:21] LABS: CALCIUM 8.4 mg/dl (8.5-10.1); CREATININE 0.76 mg/dl (0.60-1.20)
[2017-06-18 06:27] LABS: ALB/GLOB RATIO 0.6 (0.9-2)
[2017-06-18] MEDS: ALBUT/IPRATROP 3MG/0.5MG NEB 3 ML VIAL INH SCH ×3 (06:44→14:49)
[2017-06-18] MEDS: DOCUSATE SODIUM 100 MG CAP PO SCH ×2 (08:00→08:16)
[2017-06-18] MEDS: CHOLECALCIFEROL 1000 INTER.UNIT TAB PO SCH (08:15)
[2017-06-18] MEDS: METFORMIN HCL 500 MG TAB PO SCH ×2 (08:16→17:58)
[2017-06-18] MEDS: ASPIRIN 81 MG ECTAB PO SCH (08:16)
[2017-06-18] MEDS: PANTOprazole SOD 40 MG TAB PO SCH (08:16)
[2017-06-18] MEDS: RIFAXIMIN TAB 550 MG TAB PO SCH (08:17)
[2017-06-18] MEDS: GABAPENTIN 300 MG CAP PO SCH (08:17)
[2017-06-18] MEDS: FERROUS SULFATE 325 MG TAB PO SCH ×2 (08:17→17:58)
[2017-06-18] MEDS: MAGNESIUM OXIDE 400 MG TAB PO SCH (08:18)
[2017-06-18] MEDS: LACTULOSE SYRUP 20 GM/30 ML UDC PO SCH ×3 (08:19→17:55)
[2017-06-18] MEDS: POTASSIUM CHLORIDE 20 MEQ TABCR PO SCH (08:20)
[2017-06-18] MEDS: CEROVITE ADV FORMULA TAB PO SCH (08:20)
[2017-06-18] MEDS: ARTIFICIAL TEARS OP SOLN OP SCH ×6 (08:20→17:56)
[2017-06-18] MEDS: NADOLOL 40 MG TAB PO SCH (08:56)
[2017-06-18] MEDS: INSULIN ASPART 100 UNITS/ML 3 ML PEN SC SCH ×3 (09:13→18:01)
[2017-06-18] MEDS: INSULIN GLARGINE SOLOSTAR 100 UNITS/ML 3 ML PEN SQ SCH (09:24)
[2017-06-18] MEDS: LEVOFLOXACIN / D5W 750 MG in PREMIXED IN D5W 150 ML IV SCH (11:19)
--- NOTE | 2017-06-18 15:57 | Discharge Instructions ---
Discharge Instructions Date of Service Jun 18, 2017. Admission Fever Discharge Discharge Diagnosis / Problem: fever of unknown origin Discharge Goals Goal(s): Decrease discomfort, Improve function, Increase independence, Improve disease control Activity Recommendations Activity Limitations: resume your previous activity . Instructions / Follow-Up Instructions / Follow-Up Ms. Rangel, Gino came to [facility] with fevers, cough and shortness of breath. We were concerned that you had a serious infection, so we admitted to the hospital, started you on antibiotics and did test to access the source of the infection. We did an x-ray of your chest which did not show signs of infection. We also tested your urine, as well as your blood, which was also negative for infection. Nonetheless, we continued you on antibiotics because your symptoms remained despite not finding the source of your fever. It is possible that you were suffering from a sinus infection. You remarked that you saw blood on the Kleenex when blowing your nose. This is typical for a sinus infection. We also wanted to monitor you in the hospital because you have a past medical history of liver cirrhosis which put you at greater risk for complications with infection. Your ammonia levels were high on admission and have gradually decreased since. We stopped the antibiotics today and are sending you home with home meme services. Physical therapy indicated to us that you could use some help around the house while your son is at work. Best regards. It was a pleasure to take care of you. Thank you, Dr. Rome Current Hospital Diet Patient's current hospital diet: Diabetes Type 2 Diet, Low Sodium Diet (2gm Na) , AHA Diet (Heart Healthy), Renal Diet Discharge Diet Recommended Diet: AHA Diet (Heart Healthy), Low Sodium Diet (2gm Na), Diabetes Type 2 Diet Pending Studies Studies pending at discharge: no Laboratory Results Hemoglobin A1c Test 05/19/17 10:35 Range/Units Estimated Average Glucose 134 mg/dl Hemoglobin A1c 6.3 H 4.5-5.6 % Lipid Panel Test 03/24/17 14:55 Range/Units Triglycerides Level 141 0-150 mg/dl Cholesterol Level 93 0-200 mg/dl HDL Cholesterol 31 mg/dl Cholesterol/HDL Ratio 3.0 LDL Cholesterol, Calculated 34 mg/dl Medical Emergencies . Who to Call and When: Medical Emergencies: If at any time you feel your situation is an emergency, please call 911 immediately. . Non-Emergent Contact Non-Emergency issues call your: Primary Care Provider Call Non-Emergent contact if: you have a fever . . "Provider Documentation" section prepared by Charles Rome. . VTE Core Measure Inpt VTE Proph given/why not?: Jody Jewell, SCD's
--- NOTE | 2017-06-18 16:27 | Discharge Summary ---
Discharge Summary Date of Service Jun 18, 2017. (Charles Rome M.D.) Discharge Summary Admission Date: Jun 14, 2017 at 04:24 Discharge Date: Jun 18, 2017 Discharge Disposition: Home with services Principal Diagnosis: Suspected sepsis based on SIRS crieria Immunizations: Have You Had Influenza Vaccine: Yes Influenza Vaccine Date: May 29, 2011 History of Tetanus Vaccine?: Yes Tetanus Immunization Date: Sep 29, 2005 History of Pneumococcal: No Pneumococcal Date: Mar 10, 2008 History of Hepatitis B Vaccine: No (Charles Rome M.D.) Medication Reconciliation Continued Medications: Artificial Tear Solution (Artificial Tears) 1 Sindy Sindy 2 DROPS OP QID, #30 ML 5 Refills Aspirin (Aspirin Ec) 81 Mg Tab 81 MG PO QAM Atorvastatin (Lipitor) 40 Mg Tab 40 MG PO HS Carboxymethylcellulose Sodium (Refresh) 1 % Randy 1 DROP OPB QID PRN for DRYNESS Cholecalciferol (Vitamin D3) 2,000 Unit Tab 2000 INTERUNIT PO QAM Diclofenac Sodium (Topical) (Voltaren 1% Top Gel) 1 % Gel 1 DOSE EXT QID, #100 GM apply to right upper chest wall (around costochondral junction of ribs 3,4) QID Docusate Sodium (Docusate Sodium) 100 Mg Cap 100 MG PO BID, CAP Ferrous Sulfate (Kp Ferrous Sulfate) 325 Mg Tab 325 MG PO BID for 30 Days, #60 TAB 3 Refills Folic Acid (Folvite) 1 Mg Tab 1 MG PO QAM Furosemide (Lasix) 20 Mg Tab 20 MG PO DAILY, TAB Gabapentin (Neurontin) 300 Mg Cap 300 MG PO Q12, CAP Insulin Aspart (Novolog Flexpen) 100 Units/Ml Inj UNITS SQ ACHS Insulin Glargine (Lantus Solostar) 100 Unit/Ml Inj 38 UNITS SQ BID, PEN Lactulose (Chronulac) 10 Gm/15 Ml Syrp 30 ML PO TID Magnesium Oxide (Mag-Ox) 400 Mg Tab 400 MG PO QAM Metformin HCl (Metformin HCl) 500 Mg Tab 500 MG PO BIDM for 30 Days, TAB Metformin Hcl (Glucophage) 500 Mg Tab 500 MG PO BIDM, TAB Multiple Vitamins W/ Minerals (Preservision Areds 2) 1 Cap Cap 1 CAP PO BID Nadolol (Corgard) 20 Mg Tab 20 MG PO DAILY, TAB Pantoprazole (Protonix) 40 Mg Tab 40 MG PO BID, #30 TAB Rifaximin (Xifaxan) 550 Mg Tab 550 MG PO BID, TAB Ropinirole Hydrochloride (Requip) 0.5 Mg Tab 0.5 MG PO HS [diclofenac gel] () 1 APPLN EXT QID apply to rt upper chest [eye promise] () 1 TAB PO BID Discharge Exam Review of Systems: Constitutional: No fever, No chills, No sweats Respiratory: + cough, No sputum, No shortness of breath, No dyspnea on exertion Cardiovascular: No chest pain, No edema, No palpitations Abdomen: + diarrhea, No pain, No nausea, No vomiting Genitourinary - Female: No dysuria, No urinary frequency (Charles Rome M.D.) diarrhea improved. overall feeling much better oral intake is good Review of Systems: Constitutional: No fever Respiratory: No shortness of breath Cardiovascular: No chest pain Physical Exam: General Appearance: no apparent distress Respiratory/Chest: lungs clear, no respiratory distress Cardiovascular: regular rate, rhythm Abdomen / GI: soft Neurologic/Psychiatric: alert, oriented x 3 Skin: warm/dry (Cony Ford M.D.) Hospital Course 66 year old female PMHx significant for liver cirrhosis came to the ED with fever, cough SOB. Pt was admitted based on SIRS criteria and was empirically treated with broad spectrum antibiotic; Vanc, Cefepime and Levaquin. Pt had a lactic acid of 5.4 on admission. Pt was also started on IVF. Pt lactic acid recovered over the course of a day. She also was found to have a high ammonia 2/2. Pt was never confused, but her mentation and speech was seen to be slow. Pt ammonia levels improved through duration on lactulose and Rifaximin. Pt instructed to continue these meds in the outpatient. Pt CXR, UA, urine and blood cultures were all negative for infections. IV antibiotics were withdrawn, although Levaquin was continued to complete a 5 day course to cover for pneumonia. During the hospitalization, the patient was seen by PT and OT. Both services suggested that the patient would benefit from home health services. Pt is being sent home with home health services and instructions to follow up with PCP in the next week. See problem list below for more detail of hospitalization; Sepsis POA - fever with lactic acidosis and low wbc Source unclear. Pt is afebrile and stable. Infectious process appears to have resolved urine and blood cx negative. CXR negative. will d/c cefepime. continue levaquin diarrhea persists - likely due to lactulose but since wbc slowly dropping - will r/o C diff Acute hepatic encephalopathy - grade 1 with h/o cirrhosis supportive care mentation improved. ammonia level today 43 continue lactulose qid and rifaximin carbs snacks and no protein restriction encourage ambulation Was seen by PT/OT--recommend home health services or potential inpatient assistance; discussing with patient and case management continue nadolol. holding lasix Diarrhea with h/o IBS and on lactulose follow Dehydration d/c IVF resume lasix on discharge Hemoptysis - equivocal CXR but having productive cough - continue levaquin - d/c cefepime with negative culture. Dced Vanco. Negative MRSA - Influenza swab negative - incentive spirometry, flutter valve, duonebs Thrombocytopenia/anemia - likely related to cirrhosis - trend, defer chemical anticoagulation HLD and CAD: -Continue atorvastatin with caution for LFT elevation. Continue Aspirin 81mg PO daily. T2DM - Lantus 38 units BID - Novolog 10 correction, 4 carb coverage - BSG ACHS Restless leg: Continue ropinirole 0.5mg PO HS Total Time Spent: Less than 30 minutes This includes examination of the patient, discharge planning, medication reconciliation, and communication with other providers. (Charles Rome M.D.) Resident Physician Supervision Note: I independently interviewed and examined the patient and verified the balbuena history and physical, reviewed labs and image studies, discussed the case with the resident Dr. Rome and agree with the findings and care plan. Total Time Spent: Greater than 30 minutes (35) (Cony Ford M.D.) Discharge Instructions Please refer to the electronic Patient Visit Report (Discharge Instructions) for additional information. (Charles Rome M.D.) Additional Copies To Maury Bond M.D.
== END 2017-06-18 18:46 | disposition home health service (06) | DRG 871 ==
LOC: C.EDB 00:23 → C.4E 04:24 → ENRESERV 04:35
PROVIDERS: ADMIT Internal Medicine; ATTEND Family Medicine
DX: A41.9 Sepsis, unspecified organism (principal); K72.00 Acute and subacute hepatic failure without coma; R04.2 Hemoptysis; J44.9 Chronic obstructive pulmonary disease, unspecified; E11.9 Type 2 diabetes mellitus without complications; I10 Essential (primary) hypertension; D69.6 Thrombocytopenia, unspecified; K74.60 Unspecified cirrhosis of liver; E86.0 Dehydration; R10.814 Left lower quadrant abdominal tenderness; E78.5 Hyperlipidemia, unspecified; I25.10 Atherosclerotic heart disease of native coronary artery without angina pectoris; G25.81 Restless legs syndrome; K58.0 Irritable bowel syndrome with diarrhea; F03.90 Unspecified dementia, unspecified severity, without behavioral disturbance, psychotic disturbance, mood disturbance, and anxiety; Z79.4 Long term (current) use of insulin; Z79.82 Long term (current) use of aspirin; Z79.84 Long term (current) use of oral hypoglycemic drugs; Z79.899 Other long term (current) drug therapy; Z87.891 Personal history of nicotine dependence; Z82.3 Family history of stroke; Z83.3 Family history of diabetes mellitus

== ENCOUNTER → 2017-07-08 | Outpatient (CLI) | payer OTHER ==
[~2017-07-08] MED LIST changes: +ARTISOL12 OP; +FERR1TAB13 PO; -FRRS300 PO; +FURO-85 PO; +GABA-113 PO; +GLC/500 PO; -INSDGIPEN SC; +INSDGIPEN SQ; +LACT10SO17 PO; -LCTL45 PO; -NRN300 PO; -NVLGIPEN SC; +NVLGIPEN SQ; +PANT1TAB48 PO; -PANT40TA PO; +RIFA550T2 PO; +diclofenac gel EXT; +eye promise PO
[2017-07-08 12:12] LABS: ALB/GLOB RATIO 0.6 (0.9-2); ALKALINE PHOSPHATASE 136 U/L (45-117); ALT/SGPT 37 U/L (12-78); AST/SGOT 80 U/L (15-37); BLOOD UREA NITROGEN 10 mg/dl (7-18); BUN/CREATININE RATIO 11.6 (10-20); CALCIUM 8.1 mg/dl (8.5-10.1); CARBON DIOXIDE 25 mmol/L (21-32); CHLORIDE 111 mmol/L (98-107); CREATININE 0.88 mg/dl (0.60-1.20); GLUCOSE 185 mg/dl (70-99); SODIUM 141 mmol/L (136-145)
== END | disposition home or self-care (01) ==
LOC: C.LABSPEC 11:40
PROVIDERS: ATTEND Family Medicine
DX: K74.60 Unspecified cirrhosis of liver (principal)

== ENCOUNTER 2017-07-30 14:32 | Emergency (ER) | payer OTHER ==
[~2017-07-30] VITALS: Ht 162.6 cm; Wt 78.0 kg
[~2017-07-30 14:32] MED LIST changes: -ASPI81TA28 PO; -CHOL20005 PO; -DOCU100C31 PO; -FERR1TAB13 PO; -FOLI1TAB7 PO; -FURO-85 PO; -GABA-113 PO; -INSDGIPEN SQ; -LACT10SO17 PO; +LACT10SO3 PO; -LPT/40 PO; -MAGN400T6 PO; -MULT60CA PO; -NADO20TA PO; -NVLGIPEN SQ; -PANT1TAB48 PO; -RIFA550T2 PO; -ROPI0.5T PO
[2017-07-30 14:34] VITALS: TEMP 36.8; Ht 162.6 cm; Wt 78.0 kg
--- NOTE | 2017-07-30 14:53 | EMERGENCY ROOM VISIT NOTE ---
History Report prepared by Samantha: Leandra Little Under the Supervision of: Dr. Mitchell Whittaker D.O. First contact with patient: 14:37 Chief Complaint: SWELLING TO EXTREMITY Stated Complaint: SWOLLEN LEGS History of Present Illness The patient is a 66 year old female who presents to the Emergency Room with complaints of persistent bilateral leg swelling for two weeks [employer]. She also notes bilateral swollen feet. She reports that she tried to get an appointment with her PCP, though was unsuccessful. She notes her legs have become worse with the swelling and leg pain. She currently rates her pain a 6/10 in severity. She notes a history of leg swelling. She regularly takes Lasix 20 mg daily. She denies any shortness of breath. She does admit that she has had episodes of shortness of breath with her COPD flares up. She currently does not have any now. She notes a history of COPD. She is a former smoker. She notes a history of liver failure. She regularly takes Lactulose. She is a former alcoholic. She notes that she tries to exercise regularly. Pt denies headache, change in vision, fevers, chest pain, nausea, vomiting, diarrhea, pain with urination, and melena. Patient denies recent trips, history of immobilization or recent surgery, or prior history of DVT. Source of History: patient Onset: two weeks [employer] Position: leg (bilateral) Symptom Intensity: 6/10 Quality: other (swelling) Timing: other (persistent) Associated Symptoms: + SOB (mild), No fevers, No headache, No chest pain, No nausea, No vomiting, No melena, No diarrhea, No urinary symptoms Note: She notes leg pain. She denies any changes in vision. Review of Systems See HPI for pertinent positives & negatives. A total of 10 systems reviewed and were otherwise negative. Past Medical & Surgical Medical Problems: (1) Altered mental status (2) cardiac history (3) Cirrhosis (4) COPD (chronic obstructive pulmonary disease) (5) Diabetes (6) HTN (hypertension) (7) Increased ammonia level (8) Neuropathy (9) Pneumonia Family History CHF (congestive heart failure) Diabetes mellitus FHx: stroke Heart disease Social History Smoking Status: Former Smoker Alcohol Use: none Drug Use: none Marital Status: Housing Status: other Occupation Status: retired Current/Historical Medications Scheduled Aspirin (Aspirin Ec), 81 MG PO QAM Atorvastatin (Lipitor), 40 MG PO HS Benzonatate (Tessalon Perles), 200 MG PO 2-3XDAILY Cholecalciferol (Vitamin D3), 2,000 INTERUNIT PO QAM Diclofenac Sodium (Topical) (Voltaren 1% Top Gel), 1 DOSE EXT QID Docusate Sodium (Docusate Sodium), 100 MG PO BID Ferrous Sulfate (Kp Ferrous Sulfate), 325 MG PO BID Folic Acid (Folvite), 1 MG PO QAM Furosemide (Lasix), 20 MG PO DAILY Gabapentin (Neurontin), 300 MG PO Q12 Fqxxzrejkxz-Ygxvjeingzx-Eti C- (Glucosamine Chondroitin), 1 CAP PO TID Insulin Aspart (Novolog Flexpen), SQ UD Insulin Glargine (Lantus Solostar), 38 UNITS SQ BID Magnesium Oxide (Mag-Ox), 400 MG PO QAM Multiple Vitamins W/ Minerals (Preservision Areds 2), 2 CAP PO DAILY Nadolol (Corgard), 20 MG PO DAILY Pantoprazole (Protonix), 40 MG PO BID Rifaximin (Xifaxan), 550 MG PO BID Ropinirole Hydrochloride (Requip), 0.5 MG PO HS Trazodone Hcl (Trazodone), 50 MG PO HS Scheduled PRN Lactulose (Encephalopathy) (Enulose), 30 ML PO 3-4XDAILY PRN for UNDECIDED Allergies Coded Allergies: Methyl Salicylate (Verified Allergy, Unknown, RASH, 07/30/17) Nickel (Verified Allergy, Unknown, RASH, 07/30/17) Zinc (Verified Allergy, Unknown, RASH, 07/30/17) Diphenhydramine (Verified Adverse Reaction, Intermediate, BURNING EYES, DIZZY,BLISTERS, 07/30/17) Physical Exam Vital Signs Date Time Temp Pulse Resp B/P (MAP) Pulse Ox O2 Delivery O2 Flow Rate FiO2 07/30/17 17:11 57 18 112/48 100 Room Air 07/30/17 16:28 58 16 118/54 96 Room Air 07/30/17 14:34 36.8 61 20 109/48 99 Room Air Physical Exam GENERAL: Sitting up in bed, alert, well appearing, well nourished, no distress, non-toxic. Soft spoken. Talking in full sentences. EYE EXAM: normal conjunctiva. OROPHARYNX: no exudate, no erythema, lips, buccal mucosa, and tongue normal and mucous membranes are moist NECK: supple, no nuchal rigidity, no adenopathy, non-tender. No JVD. LUNGS: Clear to auscultation. Normal chest wall mechanics HEART: Faint systolic ejection murmurs. S1 normal and S2 normal ABDOMEN: abdomen soft, non-tender, normo-active bowel sounds, no masses, no rebound or guarding. BACK: Back is symmetrical on inspection and there is no deformity, no midline tenderness, no CVA tenderness. SKIN: no rashes and no bruising UPPER EXTREMITIES: upper extremities are grossly normal. LOWER EXTREMITIES: Pitting edema up to bilateral knees; right calf larger than left. DPs 2/4. NEURO EXAM: Normal sensorium, cranial nerves II-XII grossly intact, normal speech, no gross weakness of arms, no gross weakness of legs. Medical Decision & Procedures ER Provider Diagnostic Interpretation: Radiology results as stated below per my review and the radiologist's interpretation: CHEST ONE VIEW PORTABLE CLINICAL HISTORY: 66 years-old Female presenting with swelling of legs. TECHNIQUE: Portable upright AP view of the chest was obtained. COMPARISON: 06/15/2017. FINDINGS: Atherosclerosis of aortic arch. Cardiac silhouette enlarged. Mildly prominent lung markings diffusely, unchanged. Lungs and pleural spaces clear. Osseous structures normal. Upper abdomen normal. IMPRESSION: 1. Mild cardiomegaly. Otherwise no evidence of acute cardiopulmonary disease. Electronically signed by: Maury Lucas M.D. 07/30/2017 3:03 PM Dictated Date/Time: 07/30/2017 3:00 PM R VENOUS DOPP LOWER EXT UNILAT CLINICAL HISTORY: swelling b/l legs r larger then L pain. Edema. TECHNIQUE: Venous Doppler COMPARISON STUDY: 02/16/2015 FINDINGS: Normal study IMPRESSION: Normal study The above report was generated using voice recognition software. It may contain grammatical, syntax or spelling errors. Electronically signed by: Torey Alonzo M.D. 07/30/2017 3:59 PM Dictated Date/Time: 07/30/2017 3:57 PM Laboratory Results 07/30/17 15:05 Red Blood Count 2.69, Mean Corpuscular Volume 103.3, Mean Corpuscular Hemoglobin 34.6, Mean Corpuscular Hemoglobin Concent 33.5, Mean Platelet Volume 9.9, Neutrophils (%) (Auto) 48.1, Lymphocytes (%) (Auto) 34.2, Monocytes (%) ( Auto) 11.0, Eosinophils (%) (Auto) 6.0, Basophils (%) (Auto) 0.7, Neutrophils # (Auto) 1.35, Lymphocytes # (Auto) 0.96, Monocytes # (Auto) 0.31, Eosinophils # ( Auto) 0.17, Basophils # (Auto) 0.02 07/30/17 15:05 Test 07/30/17 15:05 07/30/17 16:46 White Blood Count 2.81 K/uL (4.8-10.8) Red Blood Count 2.69 M/uL (4.2-5.4) Hemoglobin 9.3 g/dL (12.0-16.0) Hematocrit 27.8 % (37-47) Mean Corpuscular Volume 103.3 fL (80-100) Mean Corpuscular Hemoglobin 34.6 pg (25-34) Mean Corpuscular Hemoglobin Concent 33.5 g/dl (32-36) Platelet Count 41 K/uL (130-400) Mean Platelet Volume 9.9 fL (7.4-10.4) Neutrophils (%) (Auto) 48.1 % Lymphocytes (%) (Auto) 34.2 % Monocytes (%) (Auto) 11.0 % Eosinophils (%) (Auto) 6.0 % Basophils (%) (Auto) 0.7 % Neutrophils # (Auto) 1.35 K/uL (1.4-6.5) Lymphocytes # (Auto) 0.96 K/uL (1.2-3.4) Monocytes # (Auto) 0.31 K/uL (0.11-0.59) Eosinophils # (Auto) 0.17 K/uL (0-0.5) Basophils # (Auto) 0.02 K/uL (0-0.2) RDW Standard Deviation 59.4 fL (36.4-46.3) RDW Coefficient of Variation 15.8 % (11.5-14.5) Immature Granulocyte % (Auto) 0.0 % Immature Granulocyte # (Auto) 0.00 K/uL (0.00-0.02) Giant Platelets 1+ Anion Gap 7.0 mmol/L (3-11) Est Creatinine Clear Calc Drug Dose 56.9 ml/min Estimated GFR () 70.0 Estimated GFR (Non- 60.4 BUN/Creatinine Ratio 7.3 (10-20) Calcium Level 8.3 mg/dl (8.5-10.1) Total Bilirubin 1.3 mg/dl (0.2-1) Direct Bilirubin 0.6 mg/dl (0-0.2) Aspartate Amino Transf (AST/SGOT) 74 U/L (15-37) Alanine Aminotransferase (ALT/SGPT) 44 U/L (12-78) Alkaline Phosphatase 147 U/L (45-117) Pro-B-Type Natriuretic Peptide 296 pg/ml (0-900) Total Protein 5.5 gm/dl (6.4-8.2) Albumin 2.2 gm/dl (3.4-5.0) Beta-Hydroxybutyric Acid 0.97 mg/dL (0.2-2.81) Bedside Glucose 339 mg/dl (70-90) Laboratory results per my review. Medications Administered Medications (Trade) Dose Ordered Sig/Kole Route Start Time Stop Time Status Last Admin Dose Admin Insulin Human Regular (novoLIN-R U-100 PER UNIT) 8 units NOW STAT SC 07/30/17 15:45 07/30/17 15:46 DC 07/30/17 15:58 8 UNITS Furosemide (Lasix Inj) 40 mg NOW STAT IV 07/30/17 16:34 07/30/17 16:35 DC 07/30/17 16:56 40 MG ECG Indication: other (leg swelling) Rate (beats per minute): 61 Rhythm: sinus rhythm Findings: no ectopy, other (Normal axis ) Change: no significant change (when compared to 06/14/2017) ED Course ED COURSE: Vital signs were reviewed and showed normal The patients medical record was reviewed The above diagnostic studies were performed and reviewed. ED treatments and interventions as stated above. 1440: The patient was evaluated in room C10. A complete history and physical examination was performed. 1545: Ordered Insulin Human Regular 8 units SC 1634: Ordered Furosemide 40 mg IV 1700: Upon reevaluation, the patient is resting comfortably. The patient's blood sugar is 330. I discussed my findings with the patient and she understands and agrees with the treatment plan. Based on the patients age, coexisting illnesses, exam and lab findings the decision to treat as an outpatient was made. The patient remained stable while under my care. The patient appeared well at the time of discharge. Medical Decision Differential Diagnosis includes but is not limited to dehydration, stroke, anemia, hypoglycemia, hyponatremia, hypernatremia, urinary tract infection, pneumonia, bronchitis, sepsis, gastroenteritis, additional abdominal pathology, metabolic abnormalities and infections. Patient is a 66-year-old female who presents to ER for swelling in her bilateral lower extremities. She has no other complaints. No chest pain or shortness of breath. She is able to flat without becoming short of breath. On exam she has no JVD. She does have pitting edema in bilateral lower extremities. Right slightly worse than left. Duplex of the lower right extremity was negative. Chest x-ray shows no CHF. No rhonchi on exam. I do not believe that she is in failure. EKG did not show any ischemia. Patient was updated bedside. She was hyperglycemic. This was treated with IM insulin. BSG trended down to 330. There is no gap. She did have a diffuse pancytopenia which is chronic. Bilirubin was slightly elevated which is chronic as well. Family was updated bedside. She was given IV Lasix. She was discharged follow-up with PCP to increase Lasix for the next 3 days and follow- up for reevaluation. Discussed with Pt concerning signs and symptoms to watch out for. Pt was instructed to follow up with their PCP and discussed with the patient their option to return to the ED at anytime for persistent or worsening symptoms. The appropriate anticipatory guidance and out-patient management, including indications for return to the emergency department, were explained at length to the patient and understood. Medication Reconcilliation Current Medication List: was personally reviewed by me Blood Pressure Screening Patient's blood pressure: Normal blood pressure Impression Primary Impression: Edema Additional Impressions: Pancytopenia Hyperglycemia Scribe Attestation The scribe's documentation has been prepared under my direction and personally reviewed by me in its entirety. I confirm that the note above accurately reflects all work, treatment, procedures, and medical decision making performed by me. Departure Information Dispostion Home / Self-Care Forms HOME CARE DOCUMENTATION FORM, IMPORTANT VISIT INFORMATION, WORK / SCHOOL INSTRUCTIONS Patient Instructions ED Hyperglycemia Diabetic, ED Leg Swelling Bilateral, My [facility] Additional Instructions Please follow up with your primary care doctor with in the next 24 hours. Any worsening of your symptoms, please return to the ED immediately. This includes any fevers greater than 100.4, worsening pain, chest pain, shortness breath, persistent nausea, vomiting, unable to eat or drink, or any other concerning signs or symptoms from your standpoint. Please take an extra tablet of your Lasix 20 mg for the next 3 days. This will have you taking 20 mg of Lasix twice a day for 3 days. Following this please follow up with her primary care doctor in reassess the swelling of her legs. Please follow your blood sugar closely for the next 6 hours. Problem Qualifiers Primary Impression: Edema Edema type: unspecified Qualified Codes: R60.9 - Edema, unspecified
--- NOTE | 2017-07-30 15:04 | DIAGNOSTIC IMAGING REPORT ---
CHEST ONE VIEW PORTABLE CLINICAL HISTORY: 66 years-old Female presenting with swelling of legs. TECHNIQUE: Portable upright AP view of the chest was obtained. COMPARISON: 06/15/2017. FINDINGS: Atherosclerosis of aortic arch. Cardiac silhouette enlarged. Mildly prominent lung markings diffusely, unchanged. Lungs and pleural spaces clear. Osseous structures normal. Upper abdomen normal. IMPRESSION: 1. Mild cardiomegaly. Otherwise no evidence of acute cardiopulmonary disease. Electronically signed by: Maury Lucas M.D. 07/30/2017 3:03 PM Dictated Date/Time: 07/30/2017 3:00 PM
[2017-07-30 15:13] LABS: HEMATOCRIT 27.8 % (37-47); HEMOGLOBIN 9.3 g/dL (12.0-16.0); MEAN CELL VOLUME 103.3 fL (80-100); MEAN CORPUSCULAR HEMOGLOBIN 34.6 pg (25-34); MEAN CORPUSCULAR HGB CONC 33.5 g/dl (32-36); RED CELL DISTRIBUTION WIDTH CV 15.8 % (11.5-14.5); RED CELL DISTRIBUTION WIDTH SD 59.4 fL (36.4-46.3); WHITE BLOOD COUNT 2.81 K/uL (4.8-10.8)
[2017-07-30 15:22] LABS: MEAN PLATELET VOLUME 9.9 fL (7.4-10.4); PLATELET COUNT 41 K/uL (130-400)
[2017-07-30] MEDS ORDERED: BENZ1CAP90 PO (15:27)
[2017-07-30 15:37] LABS: BASO % 0.7 %; BASO ABS # 0.02 K/uL (0-0.2); EOS ABS # 0.17 K/uL (0-0.5); LYMPH % 34.2 %; LYMPH ABS # 0.96 K/uL (1.2-3.4); MONO ABS # 0.31 K/uL (0.11-0.59); NEUT % 48.1 %; NEUT ABS # 1.35 K/uL (1.4-6.5)
[2017-07-30 15:43] LABS: ALBUMIN 2.2 gm/dl (3.4-5.0); CALCIUM 8.3 mg/dl (8.5-10.1); CREATININE 0.97 mg/dl (0.60-1.20); POTASSIUM 4.5 mmol/L (3.5-5.1); TOTAL PROTEIN 5.5 gm/dl (6.4-8.2)
[2017-07-30] MEDS ORDERED: NovoLIN-R INSULIN PER UNIT CHARGE SC STA (15:45)
--- NOTE | 2017-07-30 16:00 | DIAGNOSTIC IMAGING REPORT ---
R VENOUS DOPP LOWER EXT UNILAT CLINICAL HISTORY: swelling b/l legs r larger then L pain. Edema. TECHNIQUE: Venous Doppler COMPARISON STUDY: 02/16/2015 FINDINGS: Normal study IMPRESSION: Normal study The above report was generated using voice recognition software. It may contain grammatical, syntax or spelling errors. Electronically signed by: Torey Alonzo M.D. 07/30/2017 3:59 PM Dictated Date/Time: 07/30/2017 3:57 PM
[2017-07-30] MEDS ORDERED: FUROSEMIDE 40 MG/4 ML VIAL IV STA (16:34)
[2017-07-30 17:11] VITALS: BP 112/48; PULSE 57; O2SAT 100
[2017-09-18] MEDS ORDERED: INSDGIPEN SQ (01:33)
[2017-12-03] MEDS ORDERED: FERR1TAB13 PO (01:18)
[2017-12-03] MEDS ORDERED: GABA-113 PO (01:19)
[2017-12-03] MEDS ORDERED: NADO20TA PO (01:22)
[2017-12-03] MEDS ORDERED: PANT1TAB3 PO (01:24)
[2017-12-03] MEDS ORDERED: FURO-85 PO (01:25)
[2017-12-03] MEDS ORDERED: RIFA550T2 PO (01:27)
[2017-12-03] MEDS ORDERED: NVLGIPEN SQ (01:37)
[2017-12-03] MEDS ORDERED: ASPI81TA28 PO (02:37)
[2017-12-03] MEDS ORDERED: FOLI1TAB8 PO (02:39)
[2017-12-03] MEDS ORDERED: LPT/40 PO (04:47)
[2017-12-03] MEDS ORDERED: CHOL20005 PO (04:49)
[2017-12-03] MEDS ORDERED: MULT60CA PO (10:43)
[2017-12-03] MEDS ORDERED: CARB0.5D28 OPB (10:56)
[2017-12-03] MEDS ORDERED: INSU100I23 SC (10:56)
[2017-12-03] MEDS ORDERED: IPRA-64 INH (16:05)
== END 2017-07-30 17:15 | disposition home or self-care (01) ==
LOC: C.EDB 14:34 → C.EDC 17:15
DX: R60.9 Edema, unspecified (principal); D61.818 Other pancytopenia; E11.65 Type 2 diabetes mellitus with hyperglycemia; J44.9 Chronic obstructive pulmonary disease, unspecified; Z87.891 Personal history of nicotine dependence; K72.90 Hepatic failure, unspecified without coma; I10 Essential (primary) hypertension; Z87.01 Personal history of pneumonia (recurrent); K74.60 Unspecified cirrhosis of liver; Z83.3 Family history of diabetes mellitus; Z82.49 Family history of ischemic heart disease and other diseases of the circulatory system; Z79.82 Long term (current) use of aspirin; Z79.4 Long term (current) use of insulin; Z79.899 Other long term (current) drug therapy

== ENCOUNTER → 2017-08-25 | Outpatient (CLI) | payer OTHER ==
[~2017-08-25] MED LIST changes: -ARTISOL12 OP; +ASPI81TA28 PO; +BENZ1CAP90 PO; -CARB1SOL OPB; +CHOL20005 PO; +DOCU100C31 PO; +FERR1TAB13 PO; +FOLI1TAB8 PO; +FURO-85 PO; +GABA-113 PO; -GLC/500 PO; -GLC500 PO; +GLUC1CAP35 PO; +INSDGIPEN SQ; -LACT10SO3 PO; +LACT10SO61 PO; +LPT/40 PO; +MAGN400T6 PO; +MULT60CA PO; +NADO20TA PO; +NVLGIPEN SQ; +PANT1TAB3 PO; +RIFA550T2 PO; +ROPI0.5T PO; +TRAZ50TA35 PO; -diclofenac gel EXT; -eye promise PO
[2017-08-25 14:01] LABS: ALBUMIN 2.5 gm/dl (3.4-5.0); ALT/SGPT 47 U/L (12-78); BLOOD UREA NITROGEN 10 mg/dl (7-18); CARBON DIOXIDE 28 mmol/L (21-32); CREATININE 0.82 mg/dl (0.60-1.20); GLUCOSE 224 mg/dl (70-99); POTASSIUM 3.2 mmol/L (3.5-5.1); SODIUM 143 mmol/L (136-145)
[2017-08-25 14:03] LABS: ALKALINE PHOSPHATASE 156 U/L (45-117); AST/SGOT 94 U/L (15-37); TOTAL PROTEIN 6.3 gm/dl (6.4-8.2)
== END | disposition home or self-care (01) ==
LOC: C.LABPVFM 10:14
PROVIDERS: ATTEND Family Medicine
DX: I10 Essential (primary) hypertension (principal)

== ENCOUNTER 2017-09-18 14:45 | Emergency (ER) | payer OTHER ==
[~2017-09-18] VITALS: Ht 162.6 cm; Wt 83.0 kg
[~2017-09-18 14:45] MED LIST changes: -DOCU100C31 PO; +FUROSEMIDE 20 MG TAB PO SCH; -GLUC1CAP35 PO; -LACT10SO61 PO; -MAGN400T6 PO; -ROPI0.5T PO; -TRAZ50TA35 PO
[2017-09-18 14:54] VITALS: TEMP 36.7; Ht 162.6 cm; Wt 83.0 kg
[2017-09-18] MEDS ORDERED: FUROSEMIDE 40 MG/4 ML VIAL IV STA (15:18)
[2017-09-18] MEDS ORDERED: ACETAMINOPHEN 325 MG TAB PO STA (15:18)
--- NOTE | 2017-09-18 15:24 | EMERGENCY ROOM VISIT NOTE ---
History First contact with patient: 15:03 Chief Complaint: SWELLING TO EXTREMITY Stated Complaint: BOTH LEGS SWOLLEN History of Present Illness The patient is a 66 year old female who presents to the Emergency Room with complaints of bilateral lower extremity edema has been getting progressively worse over the last several weeks. The patient denies any difficulty breathing or orthopnea. She does note a weight gain of approximately 10 pounds in the last month. The patient typically takes Lasix. She was instructed to increase her dose, which she had been doing up until 4 days ago when she ran out of the medication. Insurance will not refill it yet. She denies any chest pain. No fever or chills. She denies any known history of heart failure. She does have a history of diabetes. Her sugars have been ranging from the 200s to 300s. Review of Systems 10 system review performed and negative unless noted in HPI or below Past Medical/Surgical History Medical Problems: (1) Altered mental status (2) cardiac history (3) Cirrhosis (4) COPD (chronic obstructive pulmonary disease) (5) Diabetes (6) HTN (hypertension) (7) Increased ammonia level (8) Neuropathy (9) Pneumonia Family History CHF (congestive heart failure) Diabetes mellitus FHx: stroke Heart disease Social History Smoking Status: Former Smoker Alcohol Use: none Drug Use: none Marital Status: Housing Status: other Occupation Status: retired Current/Historical Medications Scheduled Aspirin (Aspirin Ec), 81 MG PO QAM Atorvastatin (Lipitor), 40 MG PO HS Cholecalciferol (Vitamin D3), 2,000 INTERUNIT PO QAM Docusate Sodium (Docusate Sodium), 100 MG PO BID Ferrous Sulfate (Kp Ferrous Sulfate), 325 MG PO BID Folic Acid (Folvite), 1 MG PO QAM Furosemide (Lasix), 20 MG PO BID Furosemide (Lasix), 20 MG PO BID Gabapentin (Neurontin), 300 MG PO Q12 Kvwvinkcdfd-Rmokwvrivpl-Rse C- (Glucosamine Chondroitin), 1 CAP PO TID Insulin Aspart (Novolog Flexpen), SQ UD Insulin Glargine (Lantus Solostar), 38 UNITS SQ BID Ipratropium-Albuterol (Duoneb), 1 TREATMENT INH TID Magnesium Oxide (Mag-Ox), 400 MG PO QAM Multiple Vitamins W/ Minerals (Preservision Areds 2), 2 CAP PO DAILY Nadolol (Corgard), 20 MG PO DAILY Pantoprazole (Protonix), 40 MG PO BID Rifaximin (Xifaxan), 550 MG PO BID Ropinirole Hydrochloride (Requip), 0.5 MG PO HS Trazodone Hcl (Trazodone), 50 MG PO HS [Refresh Liquidgel], 1 DROP OPB DAILY Scheduled PRN Lactulose (Encephalopathy) (Enulose), 30 ML PO 3-4XDAILY PRN for UNDECIDED Physical Exam Vital Signs Date Time Temp Pulse Resp B/P (MAP) Pulse Ox O2 Delivery O2 Flow Rate FiO2 09/18/17 18:37 54 16 105/65 96 09/18/17 16:26 54 09/18/17 15:29 65 16 111/50 98 Room Air 09/18/17 14:54 36.7 60 20 104/47 98 Room Air Physical Exam VITALS: Vitals are noted on the nurse's note and reviewed by myself. Vital signs stable. GENERAL: 66-year-old female, appears older than stated age, in no acute distress , nondiaphoretic, well-developed well-nourished. SKIN: Erythema noted to the anterior aspect of the lower extremities bilaterally. Some warmth also appreciated. The skin is intact. HEAD: Normocephalic atraumatic. MOUTH: Mucous membranes slightly dry NECK: Supple without nuchal rigidity. JVD noted HEART: Systolic murmur heard best at the right upper sternal border. Regular rhythm without murmurs gallops or rubs. LUNGS: Diffuse mild wheeze. No crackles at the bases. No tachypnea. ABDOMEN: Positive bowel sounds x 4.Soft, nontender, without organomegaly. No guarding or rebound tenderness. MUSCULOSKELETAL: +1 pitting edema in the lower extremities with erythema and mild warmth appreciated to the shins bilaterally. Strength 5/5 throughout. NEURO: Patient was alert and oriented to person place and time. Normal sensation to touch. No focal neurological deficits. Medical Decision & Procedures ER Provider Diagnostic Interpretation: US BLE IMPRESSION: No evidence of deep venous thrombus within the bilateral lower extremities. Electronically signed by: Donovan Mcdonald M.D. 09/18/2017 4:13 PM Dictated Date/Time: 09/18/2017 4:12 PM The status of this report is Signed. Draft = Not yet reviewed or approved by Radiologist. CXR IMPRESSION: No acute cardiopulmonary findings. Electronically signed by: Donovan Mcdonald M.D. 09/18/2017 3:54 PM Dictated Date/Time: 09/18/2017 3:52 PM The status of this report is Signed. Draft = Not yet reviewed or approved by Radiologist. Signed = Reviewed and approved by Radiologist. Laboratory Results 09/18/17 15:05 Red Blood Count 2.84, Mean Corpuscular Volume 105.3, Mean Corpuscular Hemoglobin 34.5, Mean Corpuscular Hemoglobin Concent 32.8, Mean Platelet Volume 11.2, Neutrophils (%) (Auto) 49.5, Lymphocytes (%) (Auto) 35.4, Monocytes (%) ( Auto) 10.0, Eosinophils (%) (Auto) 4.2, Basophils (%) (Auto) 0.6, Neutrophils # (Auto) 1.54, Lymphocytes # (Auto) 1.10, Monocytes # (Auto) 0.31, Eosinophils # ( Auto) 0.13, Basophils # (Auto) 0.02 09/18/17 15:05 Test 09/18/17 15:05 09/18/17 17:00 White Blood Count 3.11 K/uL (4.8-10.8) Red Blood Count 2.84 M/uL (4.2-5.4) Hemoglobin 9.8 g/dL (12.0-16.0) Hematocrit 29.9 % (37-47) Mean Corpuscular Volume 105.3 fL (80-100) Mean Corpuscular Hemoglobin 34.5 pg (25-34) Mean Corpuscular Hemoglobin Concent 32.8 g/dl (32-36) Platelet Count 55 K/uL (130-400) Mean Platelet Volume 11.2 fL (7.4-10.4) Neutrophils (%) (Auto) 49.5 % Lymphocytes (%) (Auto) 35.4 % Monocytes (%) (Auto) 10.0 % Eosinophils (%) (Auto) 4.2 % Basophils (%) (Auto) 0.6 % Neutrophils # (Auto) 1.54 K/uL (1.4-6.5) Lymphocytes # (Auto) 1.10 K/uL (1.2-3.4) Monocytes # (Auto) 0.31 K/uL (0.11-0.59) Eosinophils # (Auto) 0.13 K/uL (0-0.5) Basophils # (Auto) 0.02 K/uL (0-0.2) RDW Standard Deviation 60.7 fL (36.4-46.3) RDW Coefficient of Variation 15.7 % (11.5-14.5) Immature Granulocyte % (Auto) 0.3 % Immature Granulocyte # (Auto) 0.01 K/uL (0.00-0.02) Platelet Estimate DECREASED Anion Gap 8.0 mmol/L (3-11) Est Creatinine Clear Calc Drug Dose 64.7 ml/min Estimated GFR () 78.8 Estimated GFR (Non- 68.0 BUN/Creatinine Ratio 13.9 (10-20) Calcium Level 8.6 mg/dl (8.5-10.1) Total Bilirubin 1.2 mg/dl (0.2-1) Aspartate Amino Transf (AST/SGOT) 62 U/L (15-37) Alanine Aminotransferase (ALT/SGPT) 36 U/L (12-78) Alkaline Phosphatase 150 U/L (45-117) Troponin I < 0.015 ng/ml (0-0.045) Pro-B-Type Natriuretic Peptide 912 pg/ml (0-900) Total Protein 5.9 gm/dl (6.4-8.2) Albumin 2.2 gm/dl (3.4-5.0) Globulin 3.7 gm/dl (2.5-4.0) Albumin/Globulin Ratio 0.6 (0.9-2) Urine Color YELLOW Urine Appearance CLEAR (CLEAR) Urine pH 6.0 (4.5-7.5) Urine Specific Ramey 1.010 (1.000-1.030) Urine Protein NEG (NEG) Urine Glucose (UA) NEG (NEG) Urine Ketones NEG (NEG) Urine Occult Blood NEG (NEG) Urine Nitrite NEG (NEG) Urine Bilirubin NEG (NEG) Urine Urobilinogen NEG (NEG) Urine Leukocyte Esterase TRACE (NEG) Urine WBC (Auto) /hpf (0-5) Urine RBC (Auto) /hpf (0-4) Urine Hyaline Casts (Auto) /lpf (0-5) Urine Epithelial Cells (Auto) /lpf (0-5) Urine Bacteria (Auto) (NEG) Urine RBC 0-4 /hpf (0-4) Urine WBC 1-5 /hpf (0-5) Urine Epithelial Cells 20-30 /lpf (0-5) Urine Bacteria NEG (NEG) Medications Administered Medications (Trade) Dose Ordered Sig/Kole Route Start Time Stop Time Status Last Admin Dose Admin Acetaminophen (Tylenol Tab) 650 mg NOW STAT PO 09/18/17 15:18 18 15:21 DC 09/18/17 15:18 650 MG Furosemide (Lasix Inj) 40 mg NOW STAT IV 09/18/17 15:18 09/18/17 15:21 DC 09/18/17 15:18 40 MG Tramadol HCl (Ultram Tab) 50 mg NOW STAT PO 09/18/17 17:51 09/18/17 17:52 DC 09/18/17 17:51 50 MG Tramadol HCl (Ultram Home Pack) 1 homepack UD ONCE PO 09/18/17 18:00 09/18/17 18:01 DC 09/18/17 18:00 1 HOMEPACK ECG Per My Interpretation Indication: other Rate (beats per minute): 58 Rhythm: normal sinus Findings: PAC ED Course Patient was seen and examined Vital signs including blood pressure were reviewed medications list was verified with patient Labs were obtained, and a saline lock was established The patient was given Tylenol for pain. She was also given 1 dose of Lasix 40 mg IV Imaging was performed and reviewed The patient was reassessed and resting comfortably. She was still complaining of some pain in her lower extremities. She was ordered tramadol 50 mg by mouth. We thoroughly discussed her workup. She voiced understanding. The case was also discussed with supervising physician who is in agreement with my plan. I reviewed discharge instructions the patient. They voiced understanding and had no further questions. Medical Decision Differential diagnosis: CHF exacerbation, cellulitis, DVT, cirrhosis This patient is a 66-year-old female presents to the emergency department with weight gain and lower extremity edema. She has not been taking her Lasix over the last several days. On exam, she does appear to have fluid overload. The patient was treated with Lasix 40 mg IV in the emergency department. Her labs appear to be at baseline. Her chest x-ray does not show any signs of effusion or pulmonary edema. She has not hypoxic. I believe she is stable to be discharged home. The patient was given a home pack of Lasix. She was also provided a Prescription that she can fill at [facility] for $4. They were comfortable with this plan. She will follow closely with her primary care physician in the next 48 hours, and agrees to return to the emergency department with any new or worsening symptoms This chart was completed in part utilizing [employer] Voice Recognition software. Attempts were made to minimize the grammatical errors, random word insertions, pronoun errors and incomplete sentences. Any formal questions or concerns about the content, text or information contained within the body of this dictation should be directly addressed to the provider for clarification. Medication Reconcilliation Current Medication List: was personally reviewed by me Blood Pressure Screening Patient's blood pressure: Normal blood pressure Impression Primary Impression: Bilateral lower extremity edema Departure Information Dispostion Home / Self-Care Condition GOOD Prescriptions Furosemide (LASIX) 20 Mg Tab 20 MG PO BID, #60 TAB Prov: Amina Veloz PA-C 09/18/17 Referrals Laila Thakkar M.D. (PCP) Patient Instructions My [facility] Additional Instructions You were evaluated in the emergency department for swelling in your legs. This is likely due to stopping/running out of the Lasix. You have been provided with a prescription for Lasix. This can be filled at [facility] for $4 Please take Lasix twice daily for the next 5 days. Elevate the legs as much as possible above the heart. Please take Tylenol 650 mg every 6 hours as needed for pain Please take Ultram 1 tab every 4 hours as needed for severe pain. It is very important to follow up closely with her primary care physician. Please call first thing Wednesday morning for a follow-up appointment. Please not hesitate to return to the emergency department with any new, worsening or concerning symptoms; especially, fever, difficulty breathing or pain in your chest
[2017-09-18 15:25] LABS: HEMATOCRIT 29.9 % (37-47); HEMOGLOBIN 9.8 g/dL (12.0-16.0); MEAN CELL VOLUME 105.3 fL (80-100); MEAN CORPUSCULAR HEMOGLOBIN 34.5 pg (25-34); MEAN CORPUSCULAR HGB CONC 32.8 g/dl (32-36); RED CELL DISTRIBUTION WIDTH CV 15.7 % (11.5-14.5); RED CELL DISTRIBUTION WIDTH SD 60.7 fL (36.4-46.3); WHITE BLOOD COUNT 3.11 K/uL (4.8-10.8)
[2017-09-18] MEDS ORDERED: GLUC1CAP35 PO (15:27)
[2017-09-18] MEDS ORDERED: LACT10SO61 PO (15:27)
[2017-09-18] MEDS ORDERED: TRAZ50TA35 PO (15:27)
[2017-09-18] MEDS ORDERED: FUROSEMIDE INJ 40 MG in SYRINGE 0 ML IV ONE (15:30)
[2017-09-18 15:42] LABS: MEAN PLATELET VOLUME 11.2 fL (7.4-10.4); PLATELET COUNT 55 K/uL (130-400)
[2017-09-18 15:43] LABS: BASO % 0.6 %; BASO ABS # 0.02 K/uL (0-0.2); EOS % 4.2 %; EOS ABS # 0.13 K/uL (0-0.5); IG# 0.01 K/uL (0.00-0.02); LYMPH % 35.4 %; MONO ABS # 0.31 K/uL (0.11-0.59); NEUT % 49.5 %; NEUT ABS # 1.54 K/uL (1.4-6.5)
[2017-09-18 15:44] LABS: ALBUMIN 2.2 gm/dl (3.4-5.0); ALT/SGPT 36 U/L (12-78); BLOOD UREA NITROGEN 12 mg/dl (7-18); CALCIUM 8.6 mg/dl (8.5-10.1); CARBON DIOXIDE 23 mmol/L (21-32); CREATININE 0.88 mg/dl (0.60-1.20); GLUCOSE 225 mg/dl (70-99); SODIUM 143 mmol/L (136-145)
[2017-09-18 15:49] LABS: ALKALINE PHOSPHATASE 150 U/L (45-117); AST/SGOT 62 U/L (15-37); TOTAL PROTEIN 5.9 gm/dl (6.4-8.2)
--- NOTE | 2017-09-18 15:55 | DIAGNOSTIC IMAGING REPORT ---
CHEST ONE VIEW PORTABLE CLINICAL HISTORY: ?CHF COMPARISON STUDY: Chest radiograph July 30, 2017. FINDINGS: Surgical anchor within the left humeral head is noted. There is no pneumothorax. Mild left basilar opacity likely reflects epicardial fat pad or atelectasis. There is no consolidation to suggest pneumonia. There is no evidence for pulmonary edema. Cardiomediastinal silhouette is stable. IMPRESSION: No acute cardiopulmonary findings. Electronically signed by: Donovan Mcdonald M.D. 09/18/2017 3:54 PM Dictated Date/Time: 09/18/2017 3:52 PM
[2017-09-18] MEDS ORDERED: [UNRECOGNIZED DRUG - OTHER] OPB (16:05)
[2017-09-18] MEDS ORDERED: IPRASOL4 INH (16:05)
--- NOTE | 2017-09-18 16:15 | DIAGNOSTIC IMAGING REPORT ---
BILATERAL LOWER EXTREMITY VENOUS DOPPLER CLINICAL HISTORY: Bilateral lower extremity edema. COMPARISON STUDY: Bilateral lower extremity venous Doppler February 16, 2015 and right lower extremity venous Doppler July 30, 2017. TECHNIQUE: Sonography of the deep venous system of the bilateral lower extremities was performed. Compression and augmentation were evaluated. FINDINGS: The bilateral common femoral, superficial femoral and popliteal veins were compressible. Augmentation was normal. Flow was shown within the deep calf vessels. IMPRESSION: No evidence of deep venous thrombus within the bilateral lower extremities. Electronically signed by: Donovan Mcdonald M.D. 09/18/2017 4:13 PM Dictated Date/Time: 09/18/2017 4:12 PM
[2017-09-18] MEDS ORDERED: FUROSEMIDE 20 MG TAB PO STA (17:19)
[2017-09-18] MEDS ORDERED: FUROSEMIDE 20 MG TAB PO ONE (17:19)
[2017-09-18] MEDS ORDERED: TRAMADOL HCL 50 MG TAB PO STA (17:51)
[2017-09-18] MEDS ORDERED: FURO20TA PO (17:54)
[2017-09-18] MEDS ORDERED: TRAMADOL HCL 50 MG HOME PACK PO ONE (18:00)
[2017-09-18 18:37] VITALS: BP 105/65; PULSE 54; O2SAT 96
[2017-09-18] MEDS ORDERED: ROPI0.5T PO (19:01)
[2017-09-18] MEDS ORDERED: DOCU100C31 PO (19:01)
[2017-09-18] MEDS ORDERED: MAGN400T6 PO (22:49)
== END 2017-09-18 18:20 | disposition home or self-care (01) ==
LOC: C.EDB 14:47 → C.EDC 18:20
DX: R60.0 Localized edema (principal); K74.60 Unspecified cirrhosis of liver; J44.9 Chronic obstructive pulmonary disease, unspecified; E11.40 Type 2 diabetes mellitus with diabetic neuropathy, unspecified; I10 Essential (primary) hypertension; Z87.891 Personal history of nicotine dependence; Z79.82 Long term (current) use of aspirin; Z79.4 Long term (current) use of insulin; Z83.3 Family history of diabetes mellitus; Z82.3 Family history of stroke; Z82.49 Family history of ischemic heart disease and other diseases of the circulatory system

== ENCOUNTER → 2017-09-21 | Outpatient (CLI) | payer OTHER ==
[~2017-09-21] MED LIST changes: -BENZ1CAP90 PO; -DICL1GEL12 EXT; +DOCU100C31 PO; +FURO20TA PO; -FUROSEMIDE 20 MG TAB PO SCH; +GLUC1CAP35 PO; +IPRASOL4 INH; +LACT10SO61 PO; +MAGN400T6 PO; +ROPI0.5T PO; +TRAZ50TA35 PO; +[UNRECOGNIZED DRUG - OTHER] OPB
[2017-09-21 17:59] LABS: ALBUMIN 2.2 gm/dl (3.4-5.0); ALT/SGPT 35 U/L (12-78); BLOOD UREA NITROGEN 11 mg/dl (7-18); CALCIUM 8.2 mg/dl (8.5-10.1); CARBON DIOXIDE 28 mmol/L (21-32); CREATININE 0.88 mg/dl (0.60-1.20); GLUCOSE 335 mg/dl (70-99); POTASSIUM 3.8 mmol/L (3.5-5.1); SODIUM 140 mmol/L (136-145)
[2017-09-21 18:01] LABS: AST/SGOT 57 U/L (15-37); TOTAL PROTEIN 5.9 gm/dl (6.4-8.2)
[2017-09-21 18:09] LABS: ALKALINE PHOSPHATASE 143 U/L (45-117)
[2017-09-22 05:52] LABS: HEMOGLOBIN A1C 7.2 % (4.5-5.6)
== END | disposition home or self-care (01) ==
LOC: C.LABPVFM 11:06
PROVIDERS: ATTEND Family Medicine
DX: E88.09 Other disorders of plasma-protein metabolism, not elsewhere classified (principal)

== ENCOUNTER → 2017-10-13 | Outpatient (CLI) | payer OTHER ==
--- NOTE | 2017-10-13 11:26 | DIAGNOSTIC IMAGING REPORT ---
RENAL ULTRASOUND HISTORY: R31.9 [id number] COMPARISON: Abdomen and pelvis CT 04/17/2017. FINDINGS: Right kidney: 10.6 cm. No hydronephrosis. Normal corticomedullary differentiation. Focal scarring within the upper pole of the right kidney. A few right renal cysts with the largest measuring 3 cm. Left kidney: 14.0 cm. No hydronephrosis. Normal corticomedullary differentiation. Mild cortical thinning. Multiple cysts with the largest measuring 4.2 cm. Bladder: No bladder wall thickening. The bilateral ureteral jets were identified. IMPRESSION: 1. No hydronephrosis. 2. Multiple bilateral renal cysts are again noted. Electronically signed by: Dean Mathews M.D. 10/13/2017 11:24 AM Dictated Date/Time: 10/13/2017 11:22 AM
== END | disposition home or self-care (01) ==
LOC: C.ULTR 10:40
PROVIDERS: ATTEND Urology
DX: R31.9 Hematuria, unspecified (principal)

== ENCOUNTER → 2017-11-17 | Outpatient (CLI) | payer OTHER ==
[~2017-11-17] MED LIST changes: +CARB0.5D28 OPB; -FURO20TA PO; -INSDGIPEN SQ; +INSU100I23 SC; -[UNRECOGNIZED DRUG - OTHER] OPB
[2017-11-17 13:12] LABS: HEMATOCRIT 32.7 % (37-47); MEAN CELL VOLUME 100.9 fL (80-100); MEAN CORPUSCULAR HGB CONC 33.6 g/dl (32-36); RED CELL DISTRIBUTION WIDTH CV 15.3 % (11.5-14.5); RED CELL DISTRIBUTION WIDTH SD 55.8 fL (36.4-46.3); WHITE BLOOD COUNT 4.12 K/uL (4.8-10.8)
[2017-11-17 13:16] LABS: MEAN PLATELET VOLUME 10.9 fL (7.4-10.4); PLATELET COUNT 76 K/uL (130-400)
[2017-11-17 14:56] LABS: ALBUMIN 2.6 gm/dl (3.4-5.0); ALKALINE PHOSPHATASE 196 U/L (45-117); ALT/SGPT 46 U/L (12-78); AST/SGOT 75 U/L (15-37); BLOOD UREA NITROGEN 9 mg/dl (7-18); CALCIUM 8.7 mg/dl (8.5-10.1); CARBON DIOXIDE 29 mmol/L (21-32); CHOLESTEROL 78 mg/dl (0-200); CREATININE 1.02 mg/dl (0.60-1.20); GLUCOSE 448 mg/dl (70-99); LDL CHOLESTEROL CALCULATED 19 mg/dl; POTASSIUM 3.3 mmol/L (3.5-5.1); SODIUM 139 mmol/L (136-145); TOTAL PROTEIN 6.7 gm/dl (6.4-8.2)
[2017-11-18 07:31] LABS: HEMOGLOBIN A1C 8.5 % (4.5-5.6)
== END | disposition home or self-care (01) ==
LOC: C.LABPVFM 10:39
PROVIDERS: ATTEND Family Medicine
DX: D64.9 Anemia, unspecified (principal); E78.5 Hyperlipidemia, unspecified

== ENCOUNTER → 2017-11-26 | Day surgery (SDC) | payer OTHER ==
[2017-11-09 10:57] VITALS: Ht 163.8 cm; Wt 72.7 kg
[~2017-11-26] VITALS: Ht 163.8 cm; Wt 72.7 kg
[~2017-11-26] MED LIST changes: +LIDOCAINE HCL 2% 2 ML VIAL (20MG/ML) ONE; +PROPOFOL IV EMULSION 10 MG/ML 20 ML VIAL IV ONE
--- NOTE | 2017-11-26 09:37 | Discharge Instructions ---
Endoscopy Patient Instructions Date / Procedure(s) Performed Nov 26, 2017. Colonoscopy Allergy Information Coded Allergies: Methyl Salicylate (Verified Allergy, Unknown, RASH, 11/09/17) Nickel (Verified Allergy, Unknown, RASH, 11/09/17) Zinc (Verified Allergy, Unknown, RASH, 11/09/17) Diphenhydramine (Verified Adverse Reaction, Intermediate, BURNING EYES, DIZZY,BLISTERS, 11/09/17) Discharge Date / Findings Nov 26, 2017. Screening colonscopy: Single polyp (5 mm in the rectosigmoid) removed with a coldsnare and biopsy forceps Scattered diverticula in the sigmoid colon Medication Instructions Would restart Aspirin 12/02/17 Provider Instructions Activity Restrictions - No exercising or heavy lifting for 24 hours. - Do not drink alcohol the day of the procedure. - Do not drive a car or operate machinery until the day after the procedure. - Do not make any important decisions or sign important papers in 24 hours after the procedure. Following Day: - Return to full activity which may include returning to work/school. Diet Start your diet with liquids and light foods (jello, soup, juice, toast). Then eat your usual diet if not nauseated. Treatment For Common After Affects For mild abdominal pain, bloating, or excessive gas: - Rest - Eat lightly - Lie on right side Follow-Up Information Follow-up with Bijan as scheduled Anesthesia Information What You Should Know You have had a procedure that required some medicine to reduce anxiety and discomfort. This treatment is called moderate sedation. After receiving the treatment, you may be sleepy, but you will be able to breathe on your own. The effects of the treatment may last for several hours. Follow these instructions along with Activity/Diet recommendations noted above: * Do NOT do anything where dizziness or clumsiness would be dangerous. * Rest quietly at home today, then you can be up and about tomorrow. * Have a responsible person stay with you the rest of today. * You may have had an I.V. today. If so, you may take the dressing off later today. Recommendations Call your doctor if: * Trouble breathing * Continuous vomiting for more than 24 hours * Temperature above 101 degrees * Severe abdominal pain or bloating * Pain not relieved by pain medicine ordered * There is increased drainage or redness from any incision * A large amount of rectal bleeding greater than 2-3 tablespoons. (If you had a polyp/s removed or have hemorrhoids, a small amount of blood - from the rectum is to be expected.) * You have any unanswered questions or concerns. IN THE EVENT OF A SERIOUS EMERGENCY, GO TO THE NEAREST EMERGENCY ROOM Your discharge instructions were prepared by provider Nely Brothers. Patient Instructions Signature Page Telma Rangel Patient (or Guardian) Signature/Date: I have read and understand the instructions given to me by my caregivers. Caregiver/RN/Doctor Signature/Date: The above-named patient and/or guardian has received patient instructions on this date. + Original Patient Signature Page (only) stays with chart. Please make copy for patient.
--- NOTE | 2017-11-26 09:56 | Endo History and Physical ---
History & Physical Date of Service: Nov 26, 2017. Chief Complaint: History of polyps Referring Physician: Bijan History of Present Illness Reported history of polyps (last colon in 2016 with area of tatoo but no worrisome polyps), multiple tics. Past Medical History Diabetes, Hypertension, COPD Cirrhosis Past Surgical History Hx Cardiac Surgery: No Hx Internal Defibrillator: No Hx Pacemaker: No Hx Abdominal Surgery: Yes (SURJIT BSO) Hx of Implantable Prosthesis: No Hx Post-Op Nausea and Vomiting: No Hx Cancer Surgery: Yes (SKIN CANCER REMOVAL FROM FACE) Hx Thoracic Surgery: No Hx Orthopedic: Yes (L/R SHOULDER SURGERY, RT KNEE SURGERY) Hx Urinary Tract Surgery: Yes (LITHOTRIPSY) Family History None Social History Smoking Status: Former Smoker Hx Substance Use: No Hx Alcohol Use: No (QUIT 15 YEARS AGO) Allergies Coded Allergies: Methyl Salicylate (Verified Allergy, Unknown, RASH, 11/09/17) Nickel (Verified Allergy, Unknown, RASH, 11/09/17) Zinc (Verified Allergy, Unknown, RASH, 11/09/17) Diphenhydramine (Verified Adverse Reaction, Intermediate, BURNING EYES, DIZZY,BLISTERS, 11/09/17) Current Medications Reported Home Medications Medications Dose Route/Sig Max Daily Dose Days Date Category Dose Instructions Refresh Tears (Carboxymethylcellulose Sodium) 0.5 % Randy 1 Drop OPB DIRECTED 11/09/17 Reported Basaglar Kwikpen (Insulin Glargine) 100 Unit/Ml Inj 38 Unit SC BID 11/09/17 Reported Duoneb (Ipratropium-Albuterol) 3 Ml Nebu 1 Treatment INH TID PRN 09/18/17 Reported Enulose (Lactulose (Encephalopathy)) 10 Gm/15 Ml Sindy 30 Ml PO 3-4XDAILY 07/30/17 Reported Trazodone (Trazodone HCl) 50 Mg Tab 50 Mg PO HS 07/30/17 Reported Glucosamine Chondroitin (Vkjmiujunqa-Zrsjmosfsvn-Jou C-) 1 Cap Cap 1 Cap PO TID 07/30/17 Reported 500-400MG Novolog Flexpen (Insulin Aspart) 100 Units/Ml Inj SQ UD 06/14/17 Reported PER SLIDING SCALE Xifaxan (Rifaximin) 550 Mg Tab 550 Mg PO BID 06/14/17 Reported Lasix (Furosemide) 20 Mg Tab 20 Mg PO BID 06/14/17 Reported Protonix (Pantoprazole) 40 Mg Tab 40 Mg PO BID 06/14/17 Reported Corgard (Nadolol) 20 Mg Tab 20 Mg PO QAM 06/14/17 Reported Neurontin (Gabapentin) 300 Mg Cap 300 Mg PO Q12 06/14/17 Reported Kp Ferrous Sulfate (Ferrous Sulfate) 325 Mg Tab 325 Mg PO BID 30 06/14/17 Reported Docusate Sodium 100 Mg Cap 100 Mg PO BID 04/27/17 Reported Requip (Ropinirole Hydrochloride) 0.5 Mg Tab 0.5 Mg PO HS 04/27/17 Reported Preservision Areds 2 (Multiple Vitamins W/ Minerals) 1 Cap Cap 2 Cap PO DAILY 05/21/16 Reported Folvite (Folic Acid) 1 Mg Tab 1 Mg PO QAM 05/06/16 Reported Aspirin Ec (Aspirin) 81 Mg Tab 81 Mg PO QAM 05/06/16 Reported Mag-Ox (Magnesium Oxide) 400 Mg Tab 400 Mg PO QAM 04/02/15 Reported Vitamin D3 (Cholecalciferol) 2,000 Unit Tab 2,000 Interunit PO QAM 11/16/13 Reported Lipitor (Atorvastatin) 40 Mg Tab 40 Mg PO HS 11/16/13 Reported Vital Signs Weight (Kilograms): 72.73 Height (Feet): 5 Height (Inches): 4.5 Date Time Temp Pulse Resp B/P (MAP) Pulse Ox O2 Delivery O2 Flow Rate FiO2 11/26/17 09:19 36.7 64 20 122/57 (78) 99 Room Air Physical Exam General Appearance: WD/WN, no apparent distress, + obese Respiratory/Chest: Respiratory effort: no dyspnea, good air movement Auscultation: breath sounds normal Cardiovascular: Heart Auscultation: RRR, normal S1, normal S2 Abdomen: Bowel Sounds: normal Inspection & Palpation: soft, distended She has no vision in her left eye Assessment and Plan Colonscopy for history of polyp
--- NOTE | 2017-11-26 10:48 | Discharge Instructions ---
Endoscopy Patient Instructions Date / Procedure(s) Performed Nov 26, 2017. Colonoscopy Allergy Information Coded Allergies: Methyl Salicylate (Verified Allergy, Unknown, RASH, 11/09/17) Nickel (Verified Allergy, Unknown, RASH, 11/09/17) Zinc (Verified Allergy, Unknown, RASH, 11/09/17) Diphenhydramine (Verified Adverse Reaction, Intermediate, BURNING EYES, DIZZY,BLISTERS, 11/09/17) Discharge Date / Findings Nov 26, 2017. Ascending colon near the hepatic flexure: tatood site appeared normal, biopsied. Sigmoid diverticular Hemorrhoids Medication Instructions Would not resume any anticoagulation including Aspirin until 12/02/17. Provider Instructions Activity Restrictions - No exercising or heavy lifting for 24 hours. - Do not drink alcohol the day of the procedure. - Do not drive a car or operate machinery until the day after the procedure. - Do not make any important decisions or sign important papers in 24 hours after the procedure. Following Day: - Return to full activity which may include returning to work/school. Diet Start your diet with liquids and light foods (jello, soup, juice, toast). Then eat your usual diet if not nauseated. Treatment For Common After Affects For mild abdominal pain, bloating, or excessive gas: - Rest - Eat lightly - Lie on right side Follow-Up Information Follow-up with Bijan as scheduled Anesthesia Information What You Should Know You have had a procedure that required some medicine to reduce anxiety and discomfort. This treatment is called moderate sedation. After receiving the treatment, you may be sleepy, but you will be able to breathe on your own. The effects of the treatment may last for several hours. Follow these instructions along with Activity/Diet recommendations noted above: * Do NOT do anything where dizziness or clumsiness would be dangerous. * Rest quietly at home today, then you can be up and about tomorrow. * Have a responsible person stay with you the rest of today. * You may have had an I.V. today. If so, you may take the dressing off later today. Recommendations Call your doctor if: * Trouble breathing * Continuous vomiting for more than 24 hours * Temperature above 101 degrees * Severe abdominal pain or bloating * Pain not relieved by pain medicine ordered * There is increased drainage or redness from any incision * A large amount of rectal bleeding greater than 2-3 tablespoons. (If you had a polyp/s removed or have hemorrhoids, a small amount of blood - from the rectum is to be expected.) * You have any unanswered questions or concerns. IN THE EVENT OF A SERIOUS EMERGENCY, GO TO THE NEAREST EMERGENCY ROOM Your discharge instructions were prepared by provider Nely Brothers. Patient Instructions Signature Page Telma Rangel Patient (or Guardian) Signature/Date: I have read and understand the instructions given to me by my caregivers. Caregiver/RN/Doctor Signature/Date: The above-named patient and/or guardian has received patient instructions on this date. + Original Patient Signature Page (only) stays with chart. Please make copy for patient.
--- NOTE | 2017-11-26 10:52 | GI REPORT ---
Patient Name: Telma Rangel Procedure Date: 11/26/2017 9:53 AM Date of : 1950 Admit Type: Outpatient Age: 67 Gender: Female Attending MD: Nely Brothers MD Procedure: Colonoscopy Providers: Nely Brothers MD Referring MD: Laila Thakkar M.D. Indications: Personal history of colonic polyp (adenoma near the hepatic flexure 2014) Medicines: Propofol per Anesthesia Complications: No immediate complications. Estimated Blood Loss: Estimated blood loss: none. Procedure: Pre-Anesthesia Assessment: - Patient identification and proposed procedure were verified prior to the procedure by the physician and the nurse. The procedure was verified in the pre-procedure area. - Prior to the procedure, a History and Physical was performed, and patient medications, allergies and sensitivities were reviewed. The patient's tolerance of previous anesthesia was reviewed. - The risks and benefits of the procedure and the sedation options and risks were discussed with the patient. All questions were answered and informed consent was obtained. - ASA Grade Assessment: III - A patient with severe systemic disease. After I obtained informed consent, the scope was passed under direct vision. Throughout the procedure, the patient's blood pressure, pulse, and oxygen saturations were monitored continuously. The scope was introduced through the anus and advanced to the cecum, identified by appendiceal orifice and ileocecal valve. The colonoscopy was performed without difficulty. The patient tolerated the procedure well. The quality of the bowel preparation was fair. Findings: A tattoo was seen in the ascending colon. There was no evidence of residual polyp tissue. Biopsies were taken with a cold forceps for histology. Verification of patient identification for the specimen was done by the physician and nurse using the patient's name and medical record number. Scattered small-mouthed diverticula were found in the sigmoid colon. Internal hemorrhoids were found during retroflexion. Impression: - A tattoo was seen in the ascending colon close to the hepatic flexure. There was no evidence of residual polyp tissue. This area was biopsied. - Diverticulosis in the sigmoid colon. - Internal hemorrhoids. Recommendation: - Repeat colonoscopy in 5 years for surveillance given prior adenoma (2014) and fair prep today. Nely Brothers MD 11/26/2017 10:51:40 AM This report has been signed electronically. Note Initiated On: 11/26/2017 9:53 AM Number of Addenda: 0 I attest to the content of the Intraoperative Record and orders documented therein, exceptions below {[id number]}
[2017-11-26 11:22] VITALS: BP 128/60; PULSE 54; O2SAT 100
--- NOTE | 2017-11-26 11:36 | Anesthesiology Progress Note ---
Anesthesia Post Op Note Date & Time Nov 26, 2017 at 11:35 Vital Signs Pain Intensity: 0 Vital Signs Past 12 Hours Date Time Temp Pulse Resp B/P (MAP) Pulse Ox O2 Delivery O2 Flow Rate FiO2 11/26/17 11:22 54 20 128/60 (82) 100 Room Air 11/26/17 11:07 57 20 116/53 (74) 100 Room Air 11/26/17 10:52 60 20 100/44 (62) 100 Room Air 11/26/17 09:19 36.7 64 20 122/57 (78) 99 Room Air Notes Mental Status: alert / awake / arousable, participated in evaluation Pt Amnestic to Procedure: Yes Nausea / Vomiting: adequately controlled Pain: adequately controlled Airway Patency, RR, SpO2: stable & adequate BP & HR: stable & adequate Hydration State: stable & adequate Anesthetic Complications: no major complications apparent
== END | disposition home or self-care (01) ==
LOC: C.GI 08:43
PROVIDERS: ATTEND Internal Medicine Gastroenterology
DX: Z12.11 Encounter for screening for malignant neoplasm of colon (principal); Z86.010 Personal history of colon polyps; K57.30 Diverticulosis of large intestine without perforation or abscess without bleeding; K64.8 Other hemorrhoids; E11.9 Type 2 diabetes mellitus without complications; I10 Essential (primary) hypertension; I25.2 Old myocardial infarction; K21.9 Gastro-esophageal reflux disease without esophagitis; J44.9 Chronic obstructive pulmonary disease, unspecified; K74.60 Unspecified cirrhosis of liver; E66.9 Obesity, unspecified; Z87.891 Personal history of nicotine dependence; Z88.6 Allergy status to analgesic agent; Z79.4 Long term (current) use of insulin; Z90.710 Acquired absence of both cervix and uterus; Z96.651 Presence of right artificial knee joint

== ENCOUNTER 2017-12-03 15:04 | Inpatient (IN) | payer OTHER ==
[~2017-12-03] VITALS: Ht 162.6 cm; Wt 78.0 kg
[~2017-12-03 15:04] MED LIST changes: -DOCU100C31 PO; -IPRASOL4 INH; -LACT10SO61 PO; -LIDOCAINE HCL 2% 2 ML VIAL (20MG/ML) ONE; -MAGN400T6 PO; -PROPOFOL IV EMULSION 10 MG/ML 20 ML VIAL IV ONE; -ROPI0.5T PO; -TRAZ50TA35 PO
[2017-12-03] MEDS ORDERED: SODIUM CHLORIDE 0.9% 1000ML 1,000 ML IV STA (15:21)
[2017-12-03] MEDS ORDERED: LACT10SO61 PO ×2 (15:27→17:24)
[2017-12-03] MEDS ORDERED: TRAZ50TA35 PO (15:27)
--- NOTE | 2017-12-03 15:42 | EMERGENCY ROOM VISIT NOTE ---
History First contact with patient: 15:20 Chief Complaint: HYPERGLYCEMIA Stated Complaint: HIGH SUGAR, R ARM PAIN History of Present Illness The patient is a 67 year old female who presents to the Emergency Room with complaints of high blood sugar and right sided chest pain for 2 days. The patient also notes the following associated symptoms cough, breathing difficulties, headache. This started 2 days ago and is not getting better. The patient has found no relieving factors. Her blood glucose was 500 today. The pain does radiate to the right jaw. Pt denies LOC, fevers, chills, diaphoresis, visual changes, neck pain, nausea, vomiting, abdominal pain, back pain, melena, hematochezia, urinary symptoms, numbness, weakness, lymphadenopathy, rash, or other complaints. Review of Systems See HPI for pertinent positives and negatives. A total of ten systems were reviewed and were otherwise negative. Past Medical/Surgical History Medical Problems: (1) Altered mental status (2) cardiac history (3) Cirrhosis (4) COPD (chronic obstructive pulmonary disease) (5) Diabetes (6) HTN (hypertension) (7) Increased ammonia level (8) Neuropathy (9) Pneumonia Family History CHF (congestive heart failure) Diabetes mellitus FHx: stroke Heart disease Social History Smoking Status: Former Smoker Alcohol Use: none Drug Use: none Marital Status: Housing Status: other Occupation Status: retired Current/Historical Medications Scheduled Aspirin (Aspirin Ec), 81 MG PO QAM Atorvastatin (Lipitor), 40 MG PO HS Carboxymethylcellulose Sodium (Refresh Tears), 1 DROP OPB DIRECTED Cholecalciferol (Vitamin D3), 2,000 INTERUNIT PO QAM Docusate Sodium (Docusate Sodium), 100 MG PO BID Ferrous Sulfate (Kp Ferrous Sulfate), 325 MG PO BID Folic Acid (Folvite), 1 MG PO QAM Gabapentin (Neurontin), 300 MG PO Q12 Insulin Aspart (Novolog Flexpen), SQ UD Insulin Glargine (Basaglar Kwikpen), 40 UNIT SC BID Lactulose (Encephalopathy) (Enulose), 30 ML PO 3-4XDAILY Magnesium Oxide (Mag-Ox), 400 MG PO QAM Multiple Vitamins W/ Minerals (Preservision Areds 2), 2 CAP PO DAILY Nadolol (Corgard), 20 MG PO QAM Pantoprazole (Protonix), 40 MG PO BID Rifaximin (Xifaxan), 550 MG PO BID Ropinirole Hydrochloride (Requip), 0.5 MG PO HS Trazodone Hcl (Trazodone), 50-100 MG PO TID Scheduled PRN Furosemide (Lasix), 20 MG PO 2-3 TABS DAILY PRN for LOWER EXTREMITY EDEMA Ipratropium-Albuterol (Duoneb), 1 TREATMENT INH TID PRN for Shortness of Breath Physical Exam Vital Signs Date Time Temp Pulse Resp B/P (MAP) Pulse Ox O2 Delivery O2 Flow Rate FiO2 12/03/17 17:42 56 21 136/50 99 Room Air 12/03/17 16:05 60 16 123/48 98 Room Air 12/03/17 15:40 98 Room Air 12/03/17 15:26 58 12/03/17 15:08 36.4 61 18 118/65 98 Room Air Physical Exam GENERAL: Awake, alert, uncomfortable-appearing, in no distress HENT: Normocephalic, atraumatic. Oropharynx unremarkable. EYES: Normal conjunctiva. Sclera non-icteric. NECK: Supple. No nuchal rigidity. FROM. No masses. RESPIRATORY: Clear to auscultation. No wheezes. No rales. Normal respiratory effort. CARDIAC: Bradycardic rate. Normal rhythm. No murmurs. No rubs. Extremities warm and well perfused. Pulses equal. No JVD. GI: Soft, non-distended. No tenderness to palpation. No rebound or guarding. No masses. RECTAL: Deferred. MUSCULOSKELETAL: Atraumatic. Chest examination reveals right sided tenderness. The back is symmetrical on inspection without obvious abnormality. There is no CVA tenderness to palpation. No joint edema. LOWER EXTREMITIES: Calves are equal size bilaterally and non-tender. No edema. No discoloration. NEURO: Normal sensorium. No sensory or motor deficits noted. SKIN: No rash or jaundice noted. Medical Decision & Procedures ER Provider Diagnostic Interpretation: CHEST ONE VIEW PORTABLE HISTORY: 67 years-old Female EVALUATE WEAKNESS acute weakness COMPARISON: Chest radiograph 09/18/2017 TECHNIQUE: Portable AP view of the chest FINDINGS: Cardiac mediastinal and hilar silhouettes are within normal limits. Atherosclerosis of the aorta. There is no pneumothorax, pleural effusion, focal airspace consolidation or overt pulmonary edema. Bones of the chest appear grossly intact. Postsurgical changes of the left humeral head. Remote posttraumatic or postsurgical changes of the distal left clavicle. IMPRESSION: No acute process. (CHEST FOR PE) ANGIO WITH CLINICAL HISTORY: 67 years-old Female presenting with ^right chest pain. TECHNIQUE: Multidetector CT angiography of the chest was performed after administration of intravenous contrast. 3-D volumetric and/or maximum intensity projection (MIP) images were subsequently reconstructed for review. IV contrast: 95 mL of Optiray 320. A dose lowering technique was used consistent with the principles of ALARA (as low as reasonably achievable). COMPARISON: 11/16/2013. CT DOSE (mGy.cm): The estimated cumulative dose is 411.65 mGy.cm. FINDINGS: Veneer Glue Spreader topogram: Unremarkable. Pulmonary vasculature: The study is suboptimal for the assessment of the pulmonary vascular tree secondary to timing of the contrast bolus and respiratory motion artifact. Allowing for limited image quality, no central filling defect to suggest pulmonary embolus. Main pulmonary artery is not enlarged. No flattening of the interventricular septum. No intracardiac filling defect. No reflux of contrast into the hepatic veins. Remaining chest: On soft tissue windows, normal thyroid and thoracic inlet. No axillary, supraclavicular, hilar, or mediastinal lymphadenopathy. Atherosclerosis of the aorta. Multichamber enlargement of the heart. Coronary artery calcification. No pericardial or pleural effusion. Cholelithiasis. Cirrhotic morphology of the liver with splenomegaly and varices. On lung windows, minimal dependent changes likely atelectasis. Apical predominant mild emphysema, which is both centrilobular and paraseptal. No other focal nodule or infiltrate. Mild bronchial wall thickening. Central airways patent. On bone windows, prominent disc osteophyte complex at T8-9 with significant osseous spinal canal effacement. Degenerative changes also noted in the cervical spine at C6-7. IMPRESSION: 1. Allowing for suboptimal image quality, no evidence of pulmonary embolus. 2. Emphysema. No superimposed infiltrate to suggest acute intrathoracic pathology. 3. Significant disc osteophyte complex at T8-9 with osseous spinal canal effacement. Electronically signed by: Maury Lucas M.D. 12/03/2017 4:57 PM Dictated Date/Time: 12/03/2017 4:52 PM The status of this report is Signed. Draft = Not yet reviewed or approved by Radiologist. Signed = Reviewed and approved by Radiologist. GALLBLADDER-ABD LIMITED HISTORY: 67 years-old Female right chest pain, gall stones, elevated LFTs acute chest and right upper quadrant abdominal pain. Cholelithiasis. COMPARISON: CTA of the chest of same day TECHNIQUE: Multiple real-time sonographic images of the abdominal right upper quadrant were obtained assessing grayscale appearance and color flow FINDINGS: Imaged pancreas is unremarkable with pancreatic duct measuring the upper limits of normal at 3 mm. Increased echogenicity of the liver with mild marginal nodularity. No intrahepatic biliary ductal dilation. Gallbladder wall measures in the upper limits of normal at 3 mm. Shadowing cholelithiasis without pericholecystic fluid. Sonographic Jackman sign reported. Common bile duct is mildly dilated, 7 mm. Imaged right kidney demonstrates no hydronephrosis. IMPRESSION: 1. Cholelithiasis with gallbladder wall measuring in the upper limits of normal at 3 mm. No pericholecystic fluid or right upper quadrant abdominal tenderness reported. Correlate clinically to exclude developing acute cholecystitis. The study could also be correlated with a nuclear medicine hepatobiliary scan. 2. Mild common bile duct dilation, 7 mm. 3. Mild nodularity of the liver may reflect cirrhotic liver disease. The above report was generated using voice recognition software. It may contain grammatical, syntax or spelling errors. Electronically signed by: Servando Nunez M.D. 12/03/2017 6:14 PM Dictated Date/Time: 12/03/2017 6:10 PM The status of this report is Signed. Draft = Not yet reviewed or approved by Radiologist. Signed = Reviewed and approved by Radiologist. Laboratory Results 12/03/17 15:25 Red Blood Count 2.92, Mean Corpuscular Volume 101.0, Mean Corpuscular Hemoglobin 34.6, Mean Corpuscular Hemoglobin Concent 34.2, Mean Platelet Volume 10.6, Neutrophils (%) (Auto) 52.0, Lymphocytes (%) (Auto) 34.5, Monocytes (%) ( Auto) 8.8, Eosinophils (%) (Auto) 4.1, Basophils (%) (Auto) 0.6, Neutrophils # ( Auto) 1.76, Lymphocytes # (Auto) 1.17, Monocytes # (Auto) 0.30, Eosinophils # ( Auto) 0.14, Basophils # (Auto) 0.02 12/03/17 15:25 Test 12/03/17 15:25 12/03/17 15:55 12/03/17 17:00 White Blood Count 3.39 K/uL (4.8-10.8) Red Blood Count 2.92 M/uL (4.2-5.4) Hemoglobin 10.1 g/dL (12.0-16.0) Hematocrit 29.5 % (37-47) Mean Corpuscular Volume 101.0 fL (80-100) Mean Corpuscular Hemoglobin 34.6 pg (25-34) Mean Corpuscular Hemoglobin Concent 34.2 g/dl (32-36) Platelet Count 54 K/uL (130-400) Mean Platelet Volume 10.6 fL (7.4-10.4) Neutrophils (%) (Auto) 52.0 % Lymphocytes (%) (Auto) 34.5 % Monocytes (%) (Auto) 8.8 % Eosinophils (%) (Auto) 4.1 % Basophils (%) (Auto) 0.6 % Neutrophils # (Auto) 1.76 K/uL (1.4-6.5) Lymphocytes # (Auto) 1.17 K/uL (1.2-3.4) Monocytes # (Auto) 0.30 K/uL (0.11-0.59) Eosinophils # (Auto) 0.14 K/uL (0-0.5) Basophils # (Auto) 0.02 K/uL (0-0.2) RDW Standard Deviation 55.1 fL (36.4-46.3) RDW Coefficient of Variation 14.9 % (11.5-14.5) Immature Granulocyte % (Auto) 0.0 % Immature Granulocyte # (Auto) 0.00 K/uL (0.00-0.02) Macrocytosis PRESENT Prothrombin Time 12.6 SECONDS (9.0-12.0) Prothromb Time International Ratio 1.2 (0.9-1.1) Activated Partial Thromboplast Time 29.7 SECONDS (21.0-31.0) Partial Thromboplastin Ratio 1.1 Anion Gap 4.0 mmol/L (3-11) Est Creatinine Clear Calc Drug Dose 52.3 ml/min Estimated GFR () 63.9 Estimated GFR (Non- 55.2 BUN/Creatinine Ratio 11.6 (10-20) Calcium Level 8.6 mg/dl (8.5-10.1) Magnesium Level 1.7 mg/dl (1.8-2.4) Total Bilirubin 1.2 mg/dl (0.2-1) Aspartate Amino Transf (AST/SGOT) 67 U/L (15-37) Alanine Aminotransferase (ALT/SGPT) 42 U/L (12-78) Alkaline Phosphatase 164 U/L (45-117) Total Creatine Kinase 202 U/L (26-192) Creatine Kinase MB 2.5 ng/ml (0.5-3.6) Creatine Kinase MB Ratio 1.2 (0-3.0) Troponin I < 0.015 ng/ml (0-0.045) Total Protein 6.5 gm/dl (6.4-8.2) Albumin 2.3 gm/dl (3.4-5.0) Lipase 355 U/L (73-393) Beta-Hydroxybutyric Acid 0.85 mg/dL (0.2-2.81) Thyroid Stimulating Hormone (TSH) 3.090 uIu/ml (0.300-4.500) Urine Color YELLOW Urine Appearance CLEAR (CLEAR) Urine pH 6.5 (4.5-7.5) Urine Specific Henrietta 1.016 (1.000-1.030) Urine Protein NEG (NEG) Urine Glucose (UA) 3+ (NEG) Urine Ketones NEG (NEG) Urine Occult Blood NEG (NEG) Urine Nitrite NEG (NEG) Urine Bilirubin NEG (NEG) Urine Urobilinogen NEG (NEG) Urine Leukocyte Esterase SMALL (NEG) Urine WBC (Auto) 1-5 /hpf (0-5) Urine RBC (Auto) 0-4 /hpf (0-4) Urine Hyaline Casts (Auto) 1-5 /lpf (0-5) Urine Epithelial Cells (Auto) 10-20 /lpf (0-5) Urine Bacteria (Auto) NEG (NEG) Direct Bilirubin 0.5 mg/dl (0-0.2) Medications Administered Medications (Trade) Dose Ordered Sig/Kole Route Start Time Stop Time Status Last Admin Dose Admin Sodium Chloride 1,000 ml @ 125 mls/hr Q8H STAT IV 12/03/17 15:21 12/03/17 23:20 12/03/17 15:41 125 MLS/HR Insulin Human Regular (novoLIN-R U-100 PER UNIT) 10 units NOW STAT IV 12/03/17 16:20 12/03/17 16:22 DC 12/03/17 16:32 10 UNITS Sodium Chloride 500 ml @ 999 mls/hr Q31M STAT IV 12/03/17 16:20 12/03/17 16:50 DC 12/03/17 16:33 999 MLS/HR Insulin Human Regular (novoLIN-R U-100 PER UNIT) 4 units NOW STAT IV 12/03/17 17:42 12/03/17 17:43 DC 12/03/17 18:30 4 UNITS ECG Per My Interpretation Indication: chest pain Rate (beats per minute): 61 Rhythm: normal sinus Findings: PAC, no acute ischemic change Change: no significant change (09/18/17) Medical Decision Triage Nursing notes reviewed. The patient's presentation and history were concerning for right chest pain, headache, and cough. Etiologies such as metabolic, infection, hypo/hyperglycemia, electrolyte abnormalities, cardiac sources, intracerebral event, toxicologic, neurologic, as well as others were entertained. Blood work and imaging were ordered. ECG was showing nothing acute. The patient had normal saline hydration administered. She was found to be severely hyperglycemic with a blood glucose of 494. She was given 10 units of IV insulin. On recheck her blood glucose went down to 285 and she was given additional 4 units of IV insulin. The patient had no significant findings on her cardiac markers. LFTs were mildly elevated. She had no leukocytosis. The patient was then sent for CT imaging to rule out any intrathoracic pathology. She was found to have cholelithiasis. No PE or pneumonia. The patient was reassessed. She was doing somewhat better. The patient went for ultrasound imaging. I did place a consult with the [facility] hospitalist service, Dr. Delatorre. The patient was evaluated in the emergency department for further management. They were aware of the results of the ultrasound showing possible early cholecystitis although the patient is doing very well at this point time and does not have any pain. They will follow her medically. Impression Primary Impression: Right-sided chest pain Additional Impressions: Cholelithiasis Acute hyperglycemia Pancytopenia Departure Information Dispostion Being Evaluated By Hospitalist Referrals Laila Thakkar M.D. (PCP) Patient Instructions My [facility] Health Problem Qualifiers
[2017-12-03 15:45] LABS: HEMATOCRIT 29.5 % (37-47); HEMOGLOBIN 10.1 g/dL (12.0-16.0); MEAN CORPUSCULAR HEMOGLOBIN 34.6 pg (25-34); MEAN CORPUSCULAR HGB CONC 34.2 g/dl (32-36); MEAN PLATELET VOLUME 10.6 fL (7.4-10.4); PLATELET COUNT 54 K/uL (130-400); RED CELL DISTRIBUTION WIDTH CV 14.9 % (11.5-14.5); RED CELL DISTRIBUTION WIDTH SD 55.1 fL (36.4-46.3); WHITE BLOOD COUNT 3.39 K/uL (4.8-10.8)
[2017-12-03 15:59] LABS: INR 1.2 (0.9-1.1); PTT PATIENT 29.7 SECONDS (21.0-31.0)
[2017-12-03 16:04] LABS: BASO % 0.6 %; BASO ABS # 0.02 K/uL (0-0.2); EOS % 4.1 %; EOS ABS # 0.14 K/uL (0-0.5); LYMPH % 34.5 %; LYMPH ABS # 1.17 K/uL (1.2-3.4); MONO % 8.8 %; NEUT ABS # 1.76 K/uL (1.4-6.5)
[2017-12-03] MEDS ORDERED: IPRASOL4 INH (16:05)
[2017-12-03 16:08] LABS: ALBUMIN 2.3 gm/dl (3.4-5.0); ALT/SGPT 42 U/L (12-78); AST/SGOT 67 U/L (15-37); BLOOD UREA NITROGEN 12 mg/dl (7-18); CALCIUM 8.6 mg/dl (8.5-10.1); CARBON DIOXIDE 25 mmol/L (21-32); CREATININE 1.04 mg/dl (0.60-1.20); GLUCOSE 494 mg/dl (70-99); LIPASE 355 U/L (73-393); POTASSIUM 4.1 mmol/L (3.5-5.1); SODIUM 135 mmol/L (136-145)
[2017-12-03 16:13] LABS: ALKALINE PHOSPHATASE 164 U/L (45-117); CKMB 2.5 ng/ml (0.5-3.6); TOTAL PROTEIN 6.5 gm/dl (6.4-8.2)
[2017-12-03] MEDS ORDERED: SODIUM CHLORIDE 0.9% 500ML 500 ML IV STA (16:20)
[2017-12-03] MEDS ORDERED: NovoLIN-R INSULIN PER UNIT CHARGE IV STA ×2 (16:20→17:42)
--- NOTE | 2017-12-03 16:22 | DIAGNOSTIC IMAGING REPORT ---
CHEST ONE VIEW PORTABLE HISTORY: 67 years-old Female EVALUATE WEAKNESS acute weakness COMPARISON: Chest radiograph 09/18/2017 TECHNIQUE: Portable AP view of the chest FINDINGS: Cardiac mediastinal and hilar silhouettes are within normal limits. Atherosclerosis of the aorta. There is no pneumothorax, pleural effusion, focal airspace consolidation or overt pulmonary edema. Bones of the chest appear grossly intact. Postsurgical changes of the left humeral head. Remote posttraumatic or postsurgical changes of the distal left clavicle. IMPRESSION: No acute process. The above report was generated using voice recognition software. It may contain grammatical, syntax or spelling errors. Electronically signed by: Servando Nunez M.D. 12/03/2017 4:20 PM Dictated Date/Time: 12/03/2017 4:18 PM
[2017-12-03] MEDS ORDERED: OPTIRAY 320 IV PRN (16:30)
--- NOTE | 2017-12-03 16:58 | DIAGNOSTIC IMAGING REPORT ---
(CHEST FOR PE) ANGIO WITH CLINICAL HISTORY: 67 years-old Female presenting with ^right chest pain. TECHNIQUE: Multidetector CT angiography of the chest was performed after administration of intravenous contrast. 3-D volumetric and/or maximum intensity projection (MIP) images were subsequently reconstructed for review. IV contrast: 95 mL of Optiray 320. A dose lowering technique was used consistent with the principles of ALARA (as low as reasonably achievable). COMPARISON: 11/16/2013. CT DOSE (mGy.cm): The estimated cumulative dose is 411.65 mGy.cm. FINDINGS: Dental Aide topogram: Unremarkable. Pulmonary vasculature: The study is suboptimal for the assessment of the pulmonary vascular tree secondary to timing of the contrast bolus and respiratory motion artifact. Allowing for limited image quality, no central filling defect to suggest pulmonary embolus. Main pulmonary artery is not enlarged. No flattening of the interventricular septum. No intracardiac filling defect. No reflux of contrast into the hepatic veins. Remaining chest: On soft tissue windows, normal thyroid and thoracic inlet. No axillary, supraclavicular, hilar, or mediastinal lymphadenopathy. Atherosclerosis of the aorta. Multichamber enlargement of the heart. Coronary artery calcification. No pericardial or pleural effusion. Cholelithiasis. Cirrhotic morphology of the liver with splenomegaly and varices. On lung windows, minimal dependent changes likely atelectasis. Apical predominant mild emphysema, which is both centrilobular and paraseptal. No other focal nodule or infiltrate. Mild bronchial wall thickening. Central airways patent. On bone windows, prominent disc osteophyte complex at T8-9 with significant osseous spinal canal effacement. Degenerative changes also noted in the cervical spine at C6-7. IMPRESSION: 1. Allowing for suboptimal image quality, no evidence of pulmonary embolus. 2. Emphysema. No superimposed infiltrate to suggest acute intrathoracic pathology. 3. Significant disc osteophyte complex at T8-9 with osseous spinal canal effacement. Electronically signed by: Maury Lucas M.D. 12/03/2017 4:57 PM Dictated Date/Time: 12/03/2017 4:52 PM
--- NOTE | 2017-12-03 18:15 | DIAGNOSTIC IMAGING REPORT ---
GALLBLADDER-ABD LIMITED HISTORY: 67 years-old Female right chest pain, gall stones, elevated LFTs acute chest and right upper quadrant abdominal pain. Cholelithiasis. COMPARISON: CTA of the chest of same day TECHNIQUE: Multiple real-time sonographic images of the abdominal right upper quadrant were obtained assessing grayscale appearance and color flow FINDINGS: Imaged pancreas is unremarkable with pancreatic duct measuring the upper limits of normal at 3 mm. Increased echogenicity of the liver with mild marginal nodularity. No intrahepatic biliary ductal dilation. Gallbladder wall measures in the upper limits of normal at 3 mm. Shadowing cholelithiasis without pericholecystic fluid. Sonographic Jackman sign reported. Common bile duct is mildly dilated, 7 mm. Imaged right kidney demonstrates no hydronephrosis. IMPRESSION: 1. Cholelithiasis with gallbladder wall measuring in the upper limits of normal at 3 mm. No pericholecystic fluid or right upper quadrant abdominal tenderness reported. Correlate clinically to exclude developing acute cholecystitis. The study could also be correlated with a nuclear medicine hepatobiliary scan. 2. Mild common bile duct dilation, 7 mm. 3. Mild nodularity of the liver may reflect cirrhotic liver disease. The above report was generated using voice recognition software. It may contain grammatical, syntax or spelling errors. Electronically signed by: Servando Nunez M.D. 12/03/2017 6:14 PM Dictated Date/Time: 12/03/2017 6:10 PM
[2017-12-03] MEDS ORDERED: NITROGLYCERIN 0.4 MG SL PER TAB CHARGE SL PRN (18:45)
[2017-12-03] MEDS ORDERED: ACETAMINOPHEN 325 MG TAB PO PRN (18:45)
[2017-12-03] MEDS ORDERED: POLYETHYLENE (MIRALAX) 17 GM PACK PO PRN (18:45)
[2017-12-03] MEDS ORDERED: ALUMINUM/MAGNESIUM/SIMETH (MAALOX MAX) 30 ML UDC PO PRN (18:45)
[2017-12-03] MEDS ORDERED: MAGNESIUM HYDROXIDE SUSP 30 ML UDC PO PRN (18:45)
[2017-12-03] MEDS ORDERED: MoRPHine SULFATE 2 MG/ML CARP IV PRN (18:45)
[2017-12-03] MEDS ORDERED: ONDANSETRON INJ 2 MG/ML 2 ML VIAL IV PRN (18:45)
[2017-12-03] MEDS ORDERED: ALBUT/IPRATROP 3MG/0.5MG NEB 3 ML VIAL INH PRN (18:45)
--- NOTE | 2017-12-03 18:51 | History and Physical ---
History & Physical Date & Time of Service: December 03, 2017 at 17:59 Chief Complaint: High Sugar, R Arm Pain Primary Care Physician: Laila Thakkar M.D. History of Present Illness Source: patient, clinic records, hospital records Patient is a 67 y/o female, with PMHx of T2DM, NAFLD, hemochromatosis cirrhosis , esophageal varices, portal HTN, pancytopenia, Luevano's esophagus, h/o cholelithiasis, COPD, who presented to the ED because of R-sided chest pain x2 days. Patient notes pain is worse with movement. She denies any recent injuries. Pain is reproducible on exam. When presently to ED, glucose 495. She was treated w/ insulin 10 u and glucose improved to 285. She was then treated w / 4 more u of insulin. Patient lives w/ son. Per son, she has been taking her medications as prescribed. Her sugars have been around 300 the last few days. She follows w/ Myriam Rhodes for liver disease. She has been having 3-4 BMs per day. She is alert/oriented x3. Son denies any recent lethargy/confusion. Patient denies any fever, chills, sweats, lightheadedness, dizziness, vision changes, palpitations, edema, SOB, wheezing, cough, abdominal pain, nausea, vomiting, diarrhea, urinary symptoms, melena, numbness/tingling, weakness, muscle/joint pain, anxiety/depression, active bleeding, or new skin discoloration/changes. Past Medical/Surgical History Medical Problems: T2DM NAFLD hemochromatosis cirrhosis esophageal varices portal HTN pancytopenia Luevano's esophagus COPD chololithiasis Family History CHF (congestive heart failure) Diabetes mellitus FHx: stroke Heart disease Social History Smoking Status: Former Smoker Drug Use: none Marital Status: Housing status: lives with family Occupational Status: retired Immunizations History of Influenza Vaccine: Yes Influenza Vaccine Date: May 29, 2011 History of Tetanus Vaccine?: Yes Tetanus Immunization Date: Sep 29, 2005 History of Pneumococcal: No Pneumococcal Date: Mar 10, 2008 History of Hepatitis B Vaccine: No Allergies Coded Allergies: Methyl Salicylate (Verified Allergy, Unknown, RASH, 11/09/17) Nickel (Verified Allergy, Unknown, RASH, 11/09/17) Zinc (Verified Allergy, Unknown, RASH, 11/09/17) Diphenhydramine (Verified Adverse Reaction, Intermediate, BURNING EYES, DIZZY,BLISTERS, 11/09/17) Home Medications Scheduled Aspirin (Aspirin Ec), 81 MG PO QAM Atorvastatin (Lipitor), 40 MG PO HS Carboxymethylcellulose Sodium (Refresh Tears), 1 DROP OPB DIRECTED Cholecalciferol (Vitamin D3), 2,000 INTERUNIT PO QAM Docusate Sodium (Docusate Sodium), 100 MG PO BID Ferrous Sulfate (Kp Ferrous Sulfate), 325 MG PO BID Folic Acid (Folvite), 1 MG PO QAM Gabapentin (Neurontin), 300 MG PO Q12 Insulin Aspart (Novolog Flexpen), SQ UD Insulin Glargine (Basaglar Kwikpen), 40 UNIT SC BID Lactulose (Encephalopathy) (Enulose), 30 ML PO 3-4XDAILY Magnesium Oxide (Mag-Ox), 400 MG PO QAM Multiple Vitamins W/ Minerals (Preservision Areds 2), 2 CAP PO DAILY Nadolol (Corgard), 20 MG PO QAM Pantoprazole (Protonix), 40 MG PO BID Rifaximin (Xifaxan), 550 MG PO BID Ropinirole Hydrochloride (Requip), 0.5 MG PO HS Trazodone Hcl (Trazodone), 50-100 MG PO TID Scheduled PRN Furosemide (Lasix), 20 MG PO 2-3 TABS DAILY PRN for LOWER EXTREMITY EDEMA Ipratropium-Albuterol (Duoneb), 1 TREATMENT INH TID PRN for Shortness of Breath Physical Exam Vital Signs Date Time Temp Pulse Resp B/P (MAP) Pulse Ox O2 Delivery O2 Flow Rate FiO2 12/03/17 17:42 56 21 136/50 99 Room Air 12/03/17 16:05 60 16 123/48 98 Room Air 12/03/17 15:40 98 Room Air 12/03/17 15:26 58 12/03/17 15:08 36.4 61 18 118/65 98 Room Air General Appearance: no apparent distress Head: normocephalic, atraumatic Eyes: normal inspection, PERRL ENT: hearing grossly normal Neck: supple Respiratory/Chest: lungs clear, + pertinent finding (ttp of R-side chest region ) Cardiovascular: regular rate, rhythm, + systolic murmur Abdomen/GI: normal bowel sounds, non tender, soft Back: normal inspection Extremities/Musculoskelatal: no calf tenderness, + swelling (+1 pitting edema BLEs- chronic per son/patient), + pertinent finding (noted erythema to BLEs- chronic per son/patient ) Neurologic/Psych: alert, normal mood/affect, oriented x 3 Skin: normal color, warm/dry, no rash Diagnostics Laboratory Results Results Past 24 Hours Test 12/03/17 15:25 12/03/17 15:55 12/03/17 17:00 Range/Units White Blood Count 3.39 4.8-10.8 K/uL Red Blood Count 2.92 4.2-5.4 M/uL Hemoglobin 10.1 12.0-16.0 g/dL Hematocrit 29.5 37-47 % Mean Corpuscular Volume 101.0 80-100 fL Mean Corpuscular Hemoglobin 34.6 25-34 pg Mean Corpuscular Hemoglobin Concent 34.2 32-36 g/dl Platelet Count 54 130-400 K/uL Mean Platelet Volume 10.6 7.4-10.4 fL Neutrophils (%) (Auto) 52.0 % Lymphocytes (%) (Auto) 34.5 % Monocytes (%) (Auto) 8.8 % Eosinophils (%) (Auto) 4.1 % Basophils (%) (Auto) 0.6 % Neutrophils # (Auto) 1.76 1.4-6.5 K/uL Lymphocytes # (Auto) 1.17 1.2-3.4 K/uL Monocytes # (Auto) 0.30 0.11-0.59 K/uL Eosinophils # (Auto) 0.14 0-0.5 K/uL Basophils # (Auto) 0.02 0-0.2 K/uL RDW Standard Deviation 55.1 36.4-46.3 fL RDW Coefficient of Variation 14.9 11.5-14.5 % Immature Granulocyte % (Auto) 0.0 % Immature Granulocyte # (Auto) 0.00 0.00-0.02 K/uL Macrocytosis PRESENT Prothrombin Time 12.6 9.0-12.0 SECONDS Prothromb Time International Ratio 1.2 0.9-1.1 Activated Partial Thromboplast Time 29.7 21.0-31.0 SECONDS Partial Thromboplastin Ratio 1.1 Sodium Level 135 136-145 mmol/L Potassium Level 4.1 3.5-5.1 mmol/L Chloride Level 106 98-107 mmol/L Carbon Dioxide Level 25 21-32 mmol/L Anion Gap 4.0 3-11 mmol/L Blood Urea Nitrogen 12 7-18 mg/dl Creatinine 1.04 0.60-1.20 mg/dl Est Creatinine Clear Calc Drug Dose 52.3 ml/min Estimated GFR () 63.9 Estimated GFR (Non- 55.2 BUN/Creatinine Ratio 11.6 10-20 Random Glucose 494 70-99 mg/dl Calcium Level 8.6 8.5-10.1 mg/dl Magnesium Level 1.7 1.8-2.4 mg/dl Total Bilirubin 1.2 0.2-1 mg/dl Direct Bilirubin 0.5 0-0.2 mg/dl Aspartate Amino Transf (AST/SGOT) 67 15-37 U/L Alanine Aminotransferase (ALT/SGPT) 42 12-78 U/L Alkaline Phosphatase 164 45-117 U/L Total Creatine Kinase 202 26-192 U/L Creatine Kinase MB 2.5 0.5-3.6 ng/ml Creatine Kinase MB Ratio 1.2 0-3.0 Troponin I < 0.015 0-0.045 ng/ml Total Protein 6.5 6.4-8.2 gm/dl Albumin 2.3 3.4-5.0 gm/dl Lipase 355 73-393 U/L Beta-Hydroxybutyric Acid 0.85 0.2-2.81 mg/dL Thyroid Stimulating Hormone (TSH) 3.090 0.300-4.500 uIu/ml Urine Color YELLOW Urine Appearance CLEAR CLEAR Urine pH 6.5 4.5-7.5 Urine Specific [place] 1.016 1.000-1.030 Urine Protein NEG NEG Urine Glucose (UA) 3+ NEG Urine Ketones NEG NEG Urine Occult Blood NEG NEG Urine Nitrite NEG NEG Urine Bilirubin NEG NEG Urine Urobilinogen NEG NEG Urine Leukocyte Esterase SMALL NEG Urine WBC (Auto) 1-5 0-5 /hpf Urine RBC (Auto) 0-4 0-4 /hpf Urine Hyaline Casts (Auto) 1-5 0-5 /lpf Urine Epithelial Cells (Auto) 10-20 0-5 /lpf Urine Bacteria (Auto) NEG NEG Microbiology Results 12/03/17 Urine Culture, Received Pending Diagnostic Radiology CHEST ONE VIEW PORTABLE HISTORY: 67 years-old Female EVALUATE WEAKNESS acute weakness COMPARISON: Chest radiograph 09/18/2017 TECHNIQUE: Portable AP view of the chest FINDINGS: Cardiac mediastinal and hilar silhouettes are within normal limits. Atherosclerosis of the aorta. There is no pneumothorax, pleural effusion, focal airspace consolidation or overt pulmonary edema. Bones of the chest appear grossly intact. Postsurgical changes of the left humeral head. Remote posttraumatic or postsurgical changes of the distal left clavicle. IMPRESSION: No acute process. The above report was generated using voice recognition software. It may contain grammatical, syntax or spelling errors. Electronically signed by: Servando Nunez M.D. 12/03/2017 4:20 PM Dictated Date/Time: 12/03/2017 4:18 PM The status of this report is Signed. Draft = Not yet reviewed or approved by Radiologist. Signed = Reviewed and approved by Radiologist. (CHEST FOR PE) ANGIO WITH CLINICAL HISTORY: 67 years-old Female presenting with ^right chest pain. TECHNIQUE: Multidetector CT angiography of the chest was performed after administration of intravenous contrast. 3-D volumetric and/or maximum intensity projection (MIP) images were subsequently reconstructed for review. IV contrast: 95 mL of Optiray 320. A dose lowering technique was used consistent with the principles of ALARA (as low as reasonably achievable). COMPARISON: 11/16/2013. CT DOSE (mGy.cm): The estimated cumulative dose is 411.65 mGy.cm. FINDINGS: Artificial Teeth Inspector topogram: Unremarkable. Pulmonary vasculature: The study is suboptimal for the assessment of the pulmonary vascular tree secondary to timing of the contrast bolus and respiratory motion artifact. Allowing for limited image quality, no central filling defect to suggest pulmonary embolus. Main pulmonary artery is not enlarged. No flattening of the interventricular septum. No intracardiac filling defect. No reflux of contrast into the hepatic veins. Remaining chest: On soft tissue windows, normal thyroid and thoracic inlet. No axillary, supraclavicular, hilar, or mediastinal lymphadenopathy. Atherosclerosis of the aorta. Multichamber enlargement of the heart. Coronary artery calcification. No pericardial or pleural effusion. Cholelithiasis. Cirrhotic morphology of the liver with splenomegaly and varices. On lung windows, minimal dependent changes likely atelectasis. Apical predominant mild emphysema, which is both centrilobular and paraseptal. No other focal nodule or infiltrate. Mild bronchial wall thickening. Central airways patent. On bone windows, prominent disc osteophyte complex at T8-9 with significant osseous spinal canal effacement. Degenerative changes also noted in the cervical spine at C6-7. IMPRESSION: 1. Allowing for suboptimal image quality, no evidence of pulmonary embolus. 2. Emphysema. No superimposed infiltrate to suggest acute intrathoracic pathology. 3. Significant disc osteophyte complex at T8-9 with osseous spinal canal effacement. Electronically signed by: Maury Lucas M.D. 12/03/2017 4:57 PM Dictated Date/Time: 12/03/2017 4:52 PM The status of this report is Signed. Draft = Not yet reviewed or approved by Radiologist. Signed = Reviewed and approved by Radiologist. GALLBLADDER-ABD LIMITED HISTORY: 67 years-old Female right chest pain, gall stones, elevated LFTs acute chest and right upper quadrant abdominal pain. Cholelithiasis. COMPARISON: CTA of the chest of same day TECHNIQUE: Multiple real-time sonographic images of the abdominal right upper quadrant were obtained assessing grayscale appearance and color flow FINDINGS: Imaged pancreas is unremarkable with pancreatic duct measuring the upper limits of normal at 3 mm. Increased echogenicity of the liver with mild marginal nodularity. No intrahepatic biliary ductal dilation. Gallbladder wall measures in the upper limits of normal at 3 mm. Shadowing cholelithiasis without pericholecystic fluid. Sonographic Jackman sign reported. Common bile duct is mildly dilated, 7 mm. Imaged right kidney demonstrates no hydronephrosis. IMPRESSION: 1. Cholelithiasis with gallbladder wall measuring in the upper limits of normal at 3 mm. No pericholecystic fluid or right upper quadrant abdominal tenderness reported. Correlate clinically to exclude developing acute cholecystitis. The study could also be correlated with a nuclear medicine hepatobiliary scan. 2. Mild common bile duct dilation, 7 mm. 3. Mild nodularity of the liver may reflect cirrhotic liver disease. The above report was generated using voice recognition software. It may contain grammatical, syntax or spelling errors. Electronically signed by: Servando Nunez M.D. 12/03/2017 6:14 PM Dictated Date/Time: 12/03/2017 6:10 PM The status of this report is Signed. Draft = Not yet reviewed or approved by Radiologist. Signed = Reviewed and approved by Radiologist. DAYA ANGLIN ID:[id number] 03-DEC-2017 15:17:01 [facility] Sinus rhythm with Premature atrial complexes Otherwise normal ECG When compared with ECG of 18-SEP-2017 15:28, No significant change was found Confirmed by HAL LUCAS ([id number]) on 12/03/2017 4:22:24 PM 25mm/s 10mm/mV 150Hz 8.0 SP2 12SL 241 KATELYN: 10 Referred by: ED Confirmed By: HAL LUCAS Vent. rate 61 BPM WI interval 154 ms QRS duration 106 ms QT/QTc 464/467 ms P-R-T axes -7 64 59 1950 (67 yr) Female 83in 1lb Room: Loc:15 [employer]:Guevara Matter Test ind: Impression Assessment and Plan Patient is a 67 y/o female, with PMHx of T2DM, NAFLD, hemochromatosis cirrhosis , esophageal varices, portal HTN, pancytopenia, Luevano's esophagus, h/o cholelithiasis, COPD, who presented to the ED because of R-sided chest pain x2 days. R-sided chest pain, ACS r/o vs musculoskeletal vs gallbladder disease: - Admit to tele for cardiac monitoring - Trend cardiac enzymes - EKG w/out acute ischemic changes; follow EKG QAM and PRN for chest pain - IV Nitro and Morphine PRN for chest pain - RUQ US w/ cholelithiasis- ?acute cholecystis- no evidence on exam- will continue to monitor and consider GI/surgery consultation NAFLD, hemochromatosis cirrhosis, esophageal varices, portal HTN, pancytopenia, Luevano's esophagus- STABLE- follows w/ Myriam Rhodes: - LFTS are STABLE- follow CMP - Hold PRN Lasix - Continue Lactulose, Xifaxan, Nadol, Protonix T2DM w/ hyperglycemia; - Continue Lantus 40 u BID - BSG ACHS and ISS - Consult asthma educator COPD- STABLE: DuoNeb PRN for SOB/wheezing HLD: Continue Lipitor GI prophylaxis: Protonix DVT prophylaxis: Hold chemical anticoagulation due to pancytopenia Code status: LEVEL I, FULL Dispo: From home, lives w/ son- PT/OT and CM consulted Resuscitation Status LEVEL I, FULL VTE Prophylaxis Will order VTE Prophylaxis: Yes
[2017-12-03] MEDS ORDERED: ROPI0.5T PO (19:01)
[2017-12-03] MEDS ORDERED: DOCU100C31 PO (19:01)
[2017-12-03 19:39] VITALS: BP 137/59; PULSE 59; TEMP 36.5; O2SAT 98
[2017-12-03 20:00] VITALS: BP 137/59; PULSE 59; TEMP 36.5; O2SAT 98; Ht 162.6 cm; Wt 78.0 kg
[2017-12-03] MEDS ORDERED: GLUCOSE 40% GEL 15 GM TUBE PO PRN (20:15)
[2017-12-03] MEDS ORDERED: GLUCAGON FOR INJ 1 MG VIAL IM PRN (20:15)
[2017-12-03] MEDS ORDERED: MAGNESIUM SULFATE 1GM / D5W 100 ML IV ONE (20:15)
[2017-12-03] MEDS ORDERED: GLUCOSE 10 TABS/TUBE PO PRN (20:15)
[2017-12-03] MEDS ORDERED: CARBOHYDRATES FOR HYPOGLYCEMIA PO PRN (20:15)
[2017-12-03] MEDS ORDERED: DEXTROSE 50% 50 ML SYR IV PRN (20:15)
[2017-12-03] MEDS: LACTULOSE SYRUP 30 GM/45 ML UDP PO SCH (20:47)
[2017-12-03] MEDS: DOCUSATE SODIUM 100 MG CAP PO SCH (20:48)
[2017-12-03] MEDS: GABAPENTIN 300 MG CAP PO SCH (20:49)
[2017-12-03] MEDS: TRAZODONE HCL 50 MG TAB PO SCH (20:49)
[2017-12-03] MEDS: PANTOprazole SOD 40 MG TAB PO SCH (20:50)
[2017-12-03] MEDS: RIFAXIMIN TAB 550 MG TAB PO SCH (20:51)
[2017-12-03] MEDS: INSULIN GLARGINE SOLOSTAR 100 UNITS/ML 3 ML PEN SC SCH (20:54)
[2017-12-03] MEDS: INSULIN ASPART 100 UNITS/ML 3 ML PEN SC SCH (20:55)
[2017-12-03] MEDS ORDERED: ROPINIROLE HCL 0.25 MG TAB PO SCH (21:00)
[2017-12-03] MEDS ORDERED: HEPARIN SOD 5000 UNIT/0.5 ML CARP SQ SCH (21:00)
[2017-12-03] MEDS ORDERED: ATORVASTATIN 40 MG TAB PO SCH (21:00)
[2017-12-03] MEDS ORDERED: MAGN400T6 PO (22:49)
[2017-12-03 23:41] LABS: CKMB 1.8 ng/ml (0.5-3.6)
[2017-12-04] VITALS (9 sets, daily range): BP systolic 93–108; BP diastolic 45–58; PULSE 60–76; TEMP 36.6–36.8; O2SAT 92–98
[2017-12-04 07:10] LABS: HEMATOCRIT 28.1 % (37-47); HEMOGLOBIN 9.8 g/dL (12.0-16.0); MEAN CELL VOLUME 100.7 fL (80-100); MEAN CORPUSCULAR HEMOGLOBIN 35.1 pg (25-34); MEAN CORPUSCULAR HGB CONC 34.9 g/dl (32-36); RED CELL DISTRIBUTION WIDTH CV 15.1 % (11.5-14.5); RED CELL DISTRIBUTION WIDTH SD 55.7 fL (36.4-46.3); WHITE BLOOD COUNT 3.43 K/uL (4.8-10.8)
--- NOTE | 2017-12-04 07:28 | Family Medicine Progress Note ---
Progress Note Date of Service December 04, 2017. Assessment and Plan R Chest Pain Cirrhosis/NAFLD T2DM COPD HLD Pancytopenia DVT Prophylaxis Code Status Disposition
[2017-12-04 07:43] LABS: MEAN PLATELET VOLUME 9.9 fL (7.4-10.4); PLATELET COUNT 53 K/uL (130-400)
[2017-12-04 07:57] LABS: ALBUMIN 2.1 gm/dl (3.4-5.0); ALT/SGPT 34 U/L (12-78); AST/SGOT 51 U/L (15-37); BLOOD UREA NITROGEN 13 mg/dl (7-18); CALCIUM 7.7 mg/dl (8.5-10.1); CARBON DIOXIDE 28 mmol/L (21-32); CREATININE 0.74 mg/dl (0.60-1.20); GLUCOSE 133 mg/dl (70-99); POTASSIUM 3.6 mmol/L (3.5-5.1); SODIUM 147 mmol/L (136-145)
[2017-12-04 07:58] LABS: ALKALINE PHOSPHATASE 147 U/L (45-117); CKMB 1.6 ng/ml (0.5-3.6); TOTAL PROTEIN 5.6 gm/dl (6.4-8.2)
[2017-12-04] MEDS ORDERED: FERROUS SULFATE 325 MG TAB PO SCH (08:00)
[2017-12-04] MEDS: LACTULOSE SYRUP 30 GM/45 ML UDP PO SCH ×2 (08:52→12:49)
[2017-12-04] MEDS: GABAPENTIN 300 MG CAP PO SCH (08:53)
[2017-12-04] MEDS: PANTOprazole SOD 40 MG TAB PO SCH (08:54)
[2017-12-04] MEDS: RIFAXIMIN TAB 550 MG TAB PO SCH (08:54)
[2017-12-04] MEDS: DOCUSATE SODIUM 100 MG CAP PO SCH (08:55)
[2017-12-04] MEDS: TRAZODONE HCL 50 MG TAB PO SCH ×2 (08:55→13:48)
[2017-12-04] MEDS: INSULIN ASPART 100 UNITS/ML 3 ML PEN SC SCH ×2 (08:59→12:17)
[2017-12-04] MEDS ORDERED: ASPIRIN 81 MG ECTAB PO SCH (09:00)
[2017-12-04] MEDS ORDERED: NADOLOL 40 MG TAB PO SCH (09:00)
[2017-12-04] MEDS ORDERED: MAGNESIUM OXIDE 400 MG TAB PO SCH (09:00)
[2017-12-04] MEDS: INSULIN GLARGINE SOLOSTAR 100 UNITS/ML 3 ML PEN SC SCH (09:00)
[2017-12-04] MEDS ORDERED: DICLOFENAC SOD 1% GEL 100 GM TUBE EXT ONE (11:19)
--- NOTE | 2017-12-04 14:20 | Discharge Instructions ---
Discharge Instructions Date of Service December 04, 2017. Admission Reason for Admission: Hyperglycemia, Right-Sided Chest Wall Pain Discharge Discharge Diagnosis / Problem: Hyperglycemia, Chest Pain, Right upper quadrant pain Discharge Goals Goal(s): Decrease discomfort, Improve function, Diagnostic testing Activity Recommendations Activity Limitations: resume your previous activity Lifting Limitations: gradually increase as tolerated Exercise/Sports Limitations: gradually increase as tolerated Shower/Bathe: no limitations Driving or Machine Use: no limitations . Instructions / Follow-Up Instructions / Follow-Up You came to the emergency room for chest pain and high sugars. We checked an EKG (heart tracing) and this was normal. Your blood tests for your heart were all normal. This is very reassuring and makes it unlikely that this pain was related to your heart. We felt your chest muscles which were quite tender. Most likely you strained the right chest wall muscles either with twisting or lifting. This will get better with rest. You can also try ice and heat as tolerated. We also considered the possibility of this being related to your gallbladder. You lab work and ultrasound do not show that you are having an active gallbladder infection but you did have mild soreness when we pressed up against your gallbladder. Because of this, we feel you should have a test called HIDA scan. This can be done after you are discharged and we will put in the order for you to have this done. We were able to get your sugars down within 24 hours. They were still slightly high at discharge but regular checking of your sugars (every morning before food ) and before beddtime and administering your insulin accordingly will be important. We have not made any new changes to your medications. If your chest pain returns or acutely worsens or concerns you, please seek medical attention immediately by either calling your primary care provider or going to your nearest emergency department. Otherwise, please see your primary care provider within 1 week to ensure that your symptoms continue to improve. It was a pleasure to be involved in your care and we wish you all the best. Current Hospital Diet Patient's current hospital diet: AHA Diet (Heart Healthy), Diabetes Type 2 Diet Discharge Diet Recommended Diet: AHA Diet (Heart Healthy), Diabetes Type 2 Diet Pending Studies Studies pending at discharge: yes List of pending studies: HIDA scan Laboratory Results Hemoglobin A1c Test 11/17/17 10:50 Range/Units Estimated Average Glucose 197 mg/dl Hemoglobin A1c 8.5 H 4.5-5.6 % Lipid Panel Test 11/17/17 10:50 Range/Units Triglycerides Level 160 H 0-150 mg/dl Cholesterol Level 78 0-200 mg/dl HDL Cholesterol 27 mg/dl Cholesterol/HDL Ratio 2.9 LDL Cholesterol, Calculated 19 mg/dl Medical Emergencies . Who to Call and When: Medical Emergencies: If at any time you feel your situation is an emergency, please call 911 immediately. . Non-Emergent Contact Non-Emergency issues call your: Primary Care Provider Call Non-Emergent contact if: your pain is concerning you, you have any medication questions . . "Provider Documentation" section prepared by Bimal Santos. .
--- NOTE | 2017-12-04 15:29 | Discharge Summary ---
Discharge Summary Date of Service December 04, 2017. Discharge Summary Admission Date: December 03, 2017 at 18:37 Discharge Date: December 04, 2017 Discharge Disposition: Home Principal Diagnosis: Right Chest Pain Immunizations: Have You Had Influenza Vaccine: Yes Influenza Vaccine Date: May 29, 2011 History of Tetanus Vaccine?: Yes Tetanus Immunization Date: Sep 29, 2005 History of Pneumococcal: No Pneumococcal Date: Mar 10, 2008 History of Hepatitis B Vaccine: No Procedures: [~ rep ct add3]] GALLBLADDER-ABD LIMITED HISTORY: 67 years-old Female right chest pain, gall stones, elevated LFTs acute chest and right upper quadrant abdominal pain. Cholelithiasis. COMPARISON: CTA of the chest of same day TECHNIQUE: Multiple real-time sonographic images of the abdominal right upper quadrant were obtained assessing grayscale appearance and color flow FINDINGS: Imaged pancreas is unremarkable with pancreatic duct measuring the upper limits of normal at 3 mm. Increased echogenicity of the liver with mild marginal nodularity. No intrahepatic biliary ductal dilation. Gallbladder wall measures in the upper limits of normal at 3 mm. Shadowing cholelithiasis without pericholecystic fluid. Sonographic Jackman sign reported. Common bile duct is mildly dilated, 7 mm. Imaged right kidney demonstrates no hydronephrosis. IMPRESSION: 1. Cholelithiasis with gallbladder wall measuring in the upper limits of normal at 3 mm. No pericholecystic fluid or right upper quadrant abdominal tenderness reported. Correlate clinically to exclude developing acute cholecystitis. The study could also be correlated with a nuclear medicine hepatobiliary scan. 2. Mild common bile duct dilation, 7 mm. 3. Mild nodularity of the liver may reflect cirrhotic liver disease. The above report was generated using voice recognition software. It may contain grammatical, syntax or spelling errors. Electronically signed by: Servando Nunez M.D. 12/03/2017 6:14 PM Dictated Date/Time: 12/03/2017 6:10 PM The status of this report is Signed. Draft = Not yet reviewed or approved by Radiologist. Signed = Reviewed and approved by Radiologist. (CHEST FOR PE) ANGIO WITH CLINICAL HISTORY: 67 years-old Female presenting with ^right chest pain. TECHNIQUE: Multidetector CT angiography of the chest was performed after administration of intravenous contrast. 3-D volumetric and/or maximum intensity projection (MIP) images were subsequently reconstructed for review. IV contrast: 95 mL of Optiray 320. A dose lowering technique was used consistent with the principles of ALARA (as low as reasonably achievable). COMPARISON: 11/16/2013. CT DOSE (mGy.cm): The estimated cumulative dose is 411.65 mGy.cm. FINDINGS: Overlock Waistline Joiner topogram: Unremarkable. Pulmonary vasculature: The study is suboptimal for the assessment of the pulmonary vascular tree secondary to timing of the contrast bolus and respiratory motion artifact. Allowing for limited image quality, no central filling defect to suggest pulmonary embolus. Main pulmonary artery is not enlarged. No flattening of the interventricular septum. No intracardiac filling defect. No reflux of contrast into the hepatic veins. Remaining chest: On soft tissue windows, normal thyroid and thoracic inlet. No axillary, supraclavicular, hilar, or mediastinal lymphadenopathy. Atherosclerosis of the aorta. Multichamber enlargement of the heart. Coronary artery calcification. No pericardial or pleural effusion. Cholelithiasis. Cirrhotic morphology of the liver with splenomegaly and varices. On lung windows, minimal dependent changes likely atelectasis. Apical predominant mild emphysema, which is both centrilobular and paraseptal. No other focal nodule or infiltrate. Mild bronchial wall thickening. Central airways patent. On bone windows, prominent disc osteophyte complex at T8-9 with significant osseous spinal canal effacement. Degenerative changes also noted in the cervical spine at C6-7. IMPRESSION: 1. Allowing for suboptimal image quality, no evidence of pulmonary embolus. 2. Emphysema. No superimposed infiltrate to suggest acute intrathoracic pathology. 3. Significant disc osteophyte complex at T8-9 with osseous spinal canal effacement. Electronically signed by: Maury Lucas M.D. 12/03/2017 4:57 PM Dictated Date/Time: 12/03/2017 4:52 PM The status of this report is Signed. Draft = Not yet reviewed or approved by Radiologist. Signed = Reviewed and approved by Radiologist. <AttendingPhy></AttendingPhy> <FamilyPhy>Laila Thakkar M.D.</FamilyPhy> < PrimaryPhy>Laila Thakkar M.D.</PrimaryPhy> <UnitNumber>[id number]</UnitNumber > <VisitNumber>[id number]</VisitNumber> <PatientName>DAYA HUBER T</ PatientName> <DateOfBirth>1950</DateOfBirth> <Location>[facility]</Location> < ServiceDate>12/03/17</ServiceDate> <MNE>ESINDI</MNE> <OrderingPhy>Mark Prabhakar MD</OrderingPhy Medication Reconciliation Continued Medications: Aspirin (Aspirin Ec) 81 Mg Tab 81 MG PO QAM Atorvastatin (Lipitor) 40 Mg Tab 40 MG PO HS Carboxymethylcellulose Sodium (Refresh Tears) 0.5 % Randy 1 DROP OPB DIRECTED Cholecalciferol (Vitamin D3) 2,000 Unit Tab 2000 INTERUNIT PO QAM Docusate Sodium (Docusate Sodium) 100 Mg Cap 100 MG PO BID, CAP Ferrous Sulfate (Kp Ferrous Sulfate) 325 Mg Tab 325 MG PO BID for 30 Days, #60 TAB 3 Refills Folic Acid (Folvite) 1 Mg Tab 1 MG PO QAM Furosemide (Lasix) 20 Mg Tab 20 MG PO 2-3 TABS DAILY PRN for LOWER EXTREMITY EDEMA, TAB Gabapentin (Neurontin) 300 Mg Cap 300 MG PO Q12, CAP Insulin Aspart (Novolog Flexpen) 100 Units/Ml Inj SQ UD PER SLIDING SCALE Insulin Glargine (Basaglar Kwikpen) 100 Unit/Ml Inj 40 UNIT SC BID Ipratropium-Albuterol (Duoneb) 3 Ml Nebu 1 TREATMENT INH TID PRN for Shortness of Breath, INHA Lactulose (Encephalopathy) (Enulose) 10 Gm/15 Ml Sindy 30 ML PO 3-4XDAILY Magnesium Oxide (Mag-Ox) 400 Mg Tab 400 MG PO QAM Multiple Vitamins W/ Minerals (Preservision Areds 2) 1 Cap Cap 2 CAP PO DAILY Nadolol (Corgard) 20 Mg Tab 20 MG PO QAM, TAB Pantoprazole (Protonix) 40 Mg Tab 40 MG PO BID, #30 TAB Rifaximin (Xifaxan) 550 Mg Tab 550 MG PO BID, TAB Ropinirole Hydrochloride (Requip) 0.5 Mg Tab 0.5 MG PO HS Trazodone Hcl (Trazodone) 50 Mg Tab 50-100 MG PO TID Discharge Exam A 10 point review of systems at discharge was negative unless below in hospital course Physical Exam: General Appearance: WD/WN, no apparent distress Eyes: normal inspection, EOMI ENT: hearing grossly normal, pharynx normal Neck: supple, no adenopathy, no JVD Respiratory/Chest: lungs clear, no respiratory distress Cardiovascular: regular rate, rhythm, no gallop, no murmur, + pertinent finding (Right chest wall tenderness to palpation) Abdomen / GI: normal bowel sounds, non tender, soft, + pertinent finding ( mild RUQ discomfort to palpation: jackman's negative) Extremities: no calf tenderness, no pedal edema Neurologic/Psychiatric: alert, normal mood/affect, oriented x 3 Skin: normal color, warm/dry, no rash Lymphatic: no adenopathy Hospital Course 67 year old female who presented to the ER with right-sided chest pain for 3 days. She presented to the ED with hyperglycemia with BSG 494. Her hospital course is as follows: Right-sided chest pain - Chest pain rule out protocol negative: negative serial troponin x 3; normal EKG - Possible RUQ tenderness without guarding or rigidity. U/S negative for acute cholecystitis. Recommend outpatient HIDA. To be arranged by our coordinators - Chest palpation revealed right chest wall tenderness; pain likely secondary to muscular strain; recommend supportive care at home with relative rest, ice and heat. T2DM with Hyperglycemia at admission - Treated with IV regular insulin bolus pushes initially (total 14 units) and 2 L NSS - BSG improved significantly - Most recent A1c 8.6; no changes to chronic regimen - Recommend frequent checks AC and HS at home and diligence with administration of insulin Cirrhosis/NAFLD - Transaminases remained at baseline - Continued Rifixamine Chronic Venous Insufficiency - Coninued Lasix - Advised elevation of legs and TEDS Depression - Continued Trazodone COPD - Stable without acute exacerbation Pancytopenia - Platelet count remained at baseline compared to previous DVT Prophylaxis - SCD and TEDs Disposition - Patient ambulated independently in the hallways. Patient discharged home to care of self and son. She has been advised to see her PCP in 1 week. We will arrange for outpatient HIDA scan with results to be sent to PCP. Resident Physician Supervision Note: I interviewed and examined the patient. Discussed with Dr. Santos and agree with findings and plan as documented in the note. Any exceptions or clarifications are listed here: None Documented By: Mitchell Beni chest pain never a zero for 3-4 days actually started after her cat slept on her chest not at all worse after eating highly reproducible vitals noted nad breathing unlabored no pallor or icterus enzymes negative R anterior chest wall high tone/tender/decreased ROM - inhibitory pressure/LAS - improved some, pt tolerated well chest wall pain -from cat -OMT as above -voltaren gel -if doesn't improve referrral to Dr Horacio Nettles for ongoing OMT dilated CBD - nonspecific, no prandial sx, but can't entirely ignore either - HIDA to be safe - can be done as outpt, as is her preference safe for discharge somatic dysfunction chest wall/rib region - OMT as above Total Time Spent: Less than 30 minutes This includes examination of the patient, discharge planning, medication reconciliation, and communication with other providers. Discharge Instructions Please refer to the electronic Patient Visit Report (Discharge Instructions) for additional information. Additional Copies To Laila Thakkar M.D.
[2017-12-04] MEDS ORDERED: DICLOFENAC SOD 1% GEL 100 GM TUBE EXT SCH (21:00)
== END 2017-12-04 15:24 | disposition home or self-care (01) | DRG 552 ==
LOC: C.EDB 15:05 → C.MED 18:37 → ENRESERV 19:00
PROVIDERS: ADMIT Hospitalist; ATTEND Family Medicine
DX: S23.8XXA Sprain of other specified parts of thorax, initial encounter (principal); I85.00 Esophageal varices without bleeding; K76.6 Portal hypertension; D61.818 Other pancytopenia; E11.65 Type 2 diabetes mellitus with hyperglycemia; J44.9 Chronic obstructive pulmonary disease, unspecified; E83.118 Other hemochromatosis; Z83.3 Family history of diabetes mellitus; Z87.891 Personal history of nicotine dependence; Z79.4 Long term (current) use of insulin; K74.69 Other cirrhosis of liver; F32.9 Major depressive disorder, single episode, unspecified; K22.70 Barrett's esophagus without dysplasia; K76.0 Fatty (change of) liver, not elsewhere classified; Z79.82 Long term (current) use of aspirin; I87.2 Venous insufficiency (chronic) (peripheral); X50.9XXA Other and unspecified overexertion or strenuous movements or postures, initial encounter; Y92.019 Unspecified place in single-family (private) house as the place of occurrence of the external cause

== ENCOUNTER 2018-10-22 18:19 | Inpatient (IN) ==
--- NOTE | 2018-10-22 18:44 | CT Scan Report ---
CT OF THE HEAD WITHOUT CONTRAST CLINICAL HISTORY: Stroke symptoms. Headache. Confusion. COMPARISON STUDY: Head CT April 13, 2018. CT DOSE: 638.56 mGycm TECHNIQUE: Helical axial images of the head were obtained without IV contrast. Automated exposure con trol was utilized for the study. A dose lowering technique was utilized adhering to the principles o f ALARA. FINDINGS: No acute intracranial hemorrhage, midline shift or mass effect is present. Ventricular syst em is normal. Basilar cisterns are patent. There are no extra-axial collections. White matter hypoden sities are unchanged and suggest mild small vessel disease. There are no findings to suggest acute du ral sinus thrombosis or acute territorial infarct. There are no significant calvarial abnormalities. IMPRESSION: No acute intracranial findings. Electronically signed by: Donovan Mcdonald M.D. 10/22/2018 6:43 PM
[2018-10-22] MEDS ORDERED: IBUPROFEN 200 MG TAB PO STA (18:49)
--- NOTE | 2018-10-22 19:23 | XRay Report ---
XR chest 1V portable CLINICAL HISTORY: stroke symptoms COMPARISON STUDY: Chest CT December 03, 2017. Chest radiograph April 13, 2018. FINDINGS: Lung volumes are normal. There is no pneumothorax or pleural effusion. Interstitial promine nce is unchanged. There is no consolidation to suggest pneumonia. Cardiomediastinal silhouette is unr emarkable. Appearance of the chest is unchanged. Postoperative findings within the left shoulder are noted. IMPRESSION: No acute cardiopulmonary findings. Electronically signed by: Donovan Mcdonald M.D. 10/22/2018 7:22 PM
[2018-10-22 19:26] LABS: Hematocrit (blood only) 32.3 % (37-47); Mean Corpuscular Hgb Conc 34.1 g/dL (32-36); Mean Corpuscular Volume 105.6 fL (80-100); Platelet Count 54 K/uL (130-400); RDW Coefficient of Variation 14.5 % (11.5-14.5); RDW Standard Deviation 55.8 fL (36.4-46.3); Red Blood Count 3.06 M/uL (4.2-5.4); White Blood Count 5.14 K/uL (4.8-10.8)
[2018-10-22 19:31] LABS: Alanine Aminotransferase 45 U/L (12-78); Albumin Globulin Ratio 0.6 (0.9-2); Albumin Level 2.6 gm/dl (3.4-5.0); Alkaline Phosphatase 112 U/L (45-117); Aspartate Aminotransferase 78 U/L (15-37); BUN Creatinine Ratio 24.2 (10-20); Bilirubin,Total 1.6 mg/dl (0.2-1); Blood Urea Nitrogen 20 mg/dl (7-18); Carbon Dioxide 28 mmol/L (21-32); Chloride 111 mmol/L (98-107); Est GFR (African American) 82.2; Est GFR (Non-African American) 70.9; Globulin 4.1 gm/dl (2.5-4.0); Glucose 229 mg/dl (70-99); Potassium 3.5 mmol/L (3.5-5.1); Sodium 143 mmol/L (136-145); Total Protein 6.7 gm/dl (6.4-8.2)
[2018-10-22 19:41] LABS: INR 1.3 (0.9-1.1); Partial Thromboplastin Ratio 1.1; Partial Thromboplastin Time 28.9 Seconds (21.0-31.0); Prothrombin Time 12.9 Seconds (9.0-12.0)
[2018-10-22 19:44] LABS: Basophils # (auto) 0.01 K/uL (0-0.2); Basophils % (auto) 0.2 %; Eosinophils # (auto) 0.06 K/uL (0-0.5); Eosinophils % (auto) 1.2 %; Immature Granulocytes # (auto) 0.02 K/uL (0.00-0.02); Immature Granulocytes % (auto) 0.4 %; Lymphocytes # (auto) 0.94 K/uL (1.2-3.4); Lymphocytes % (auto) 18.3 %; Monocytes # (auto) 0.68 K/uL (0.11-0.59); Monocytes % (auto) 13.2 %; Neutrophils # (auto) 3.43 K/uL (1.4-6.5); Neutrophils % (auto) 66.7 %
[2018-10-22 19:53] LABS: Appearance Urine Clear (Clear); Bilirubin Urine Negative (Negative); Blood Urine 3+ (Negative); Color Urine Dark Yellow; Glucose Urine UA Negative (Negative); Ketones Urine Negative (Negative); Leukocyte Esterase Urine Negative (Negative); Nitrite Urine Negative (Negative); Protein Urine Trace (Negative); Specific Gravity Urine 1.025 (1.000-1.030); Urobilinogen Urine Negative (Negative); pH Urine 5.5 (4.5-7.5)
[2018-10-22 20:01] LABS: Influenza A virus by PCR Neg for Influ A (Neg); Influenza B virus by PCR Neg for Influ B (Neg)
[2018-10-22 20:47] LABS: Epithelial Cell Urine 0-5 /lpf (0-5); RBC Urine >30 /hpf (0-4)
[2018-10-22 20:48] LABS: Bacteria Urine Negative (Negative); Hyaline Casts Urine 0-5 /lpf (0-5); WBC Urine 0-5 /hpf (0-5)
[2018-10-22] MEDS ORDERED: LIDOCAINE HCL 1% 20 ML VIAL ONE (21:15)
[2018-10-22] MEDS ORDERED: cefTRIAXone SODIUM 2,000 MG in DEXTROSE 5% 50 ML IV STA (21:23)
[2018-10-22] MEDS ORDERED: VANCOMYCIN CONSULT ACTIVE PRN (21:23)
[2018-10-22] MEDS ORDERED: VANCOMYCIN HCL 1,000 MG in SODIUM CHLORIDE 0.9% 500 ML IV ONE (21:23)
[2018-10-22] MEDS ORDERED: VANCOMYCIN HCL 1 GM/270 ML BAG ONE (21:31)
[2018-10-22] MEDS ORDERED: cefTRIAXone SODIUM 1000MG/50ML D5W ONE (21:32)
[2018-10-22 21:48] LABS: Appearance CSF Clear; CSF Count Tube # 3; Color CSF Colorless
[2018-10-22 21:49] LABS: CSF Xanthrochromic No xanthochromia; Red Blood Cell CSF (A) 0 /uL (0-); White Blood Cell CSF (A) 0 /uL (0-5)
--- NOTE | 2018-10-23 01:12 | History & Physical Report ---
Date of Service October 23, 2018 Assessment & Plan (1) Altered mental status: 68 year old female with hx of cirrhosis, DM2, COPD, hx of pancytopenia, chronic venous insufficiency, RLS, GERD and depression presented with AMS started this PM around 4pm. AMS likely Hepatic Encephalopathy in the setting of cirrhosis with elevated ammonia level - improving since arrival -No neurologic deficits on exam -CSF study with elevated glucose of 110 -CSF Cx and gram stain pending -Ammonia 48 -Head CT no acute IC abnormality -Continue lactulose TID titrate as needed to ensure at least 3 BMs daily -Continue to monitor Concern for infection initially given temp of 37.9 and AMS -WBC 5.1 -Lactate 1.6 -Pt had LP, CSF study only with elevated glucose of 110, Cx and GS pending -Pt received rocephin and vanc x 1 in the ED -Continue to monitor labs/cultures and clinically Cirrhosis/NAFLD - Transaminases at baseline - Continue Rifixamine, and lactulose T2DM - Continue home lantus 40u BID - SSI Novolog goal 120-160 CF: 25 Carb ratio 1:7 - BSG ACHS CV - ECHO 2014: EF 55-60% with mild concentric LVH - Continue lipitor and aspirin Chronic Venous Insufficiency with LE pain - Coninued Lasix prn - Continue gabapentin COPD - Stable without acute exacerbation - CXR neg RLE? - Continue ropinirole GERD -Continue protonix Hx of Pancytopenia - Platelet count remained at baseline compared to previous - Continue home iron and folic acid Depression Continue home escitalopram DVT Prophylaxis - Lovenox 40mg SQ (2) Encephalopathy, hepatic: (3) Diabetes: (4) COPD (chronic obstructive pulmonary disease): (5) HTN (hypertension): (6) Cirrhosis: (7) Pancytopenia: History of Present Illness Primary Care Provider: Laila Thakkar MD 68 year old female with hx of cirrhosis, DM2, COPD, hx of pancytopenia, chronic venous insufficiency, RLS, GERD and depression presented with AMS started this PM around 4pm. Per pt's son, pt was not "with it" and not acting like herself earlier today. Pt currently complaining of mild headache and occasional dizziness. Pt's last BM was this AM and pt's son also in agreement as he is pretty sure he did not have a bowel movement since 1pm. Pt having some blood on wiping after BMs but according to son has hx of hemorrhoids and also has rectal soreness from frequent BMs as a result of lactulose. Denies any cp, sob, abdominal pain, n/v, diarrhea/constipation, hematochezia, melena, numbness/tingling, or any weakness Per son, pt fell off computer/rolling chair yesterday but did not have any symptoms and was able to walk to car without any issues after the incident. Pt's son believes pt's face looks similar to her baseline and is not concerned about any weakness in her extremities aside from mental status being off baseline which is now improving since arrival. Allergies Allergy/AdvReac Type Severity Reaction Status Date / Time methyl salicylate Allergy Unknown RASH Verified 10/22/18 23:39 nickel Allergy Unknown RASH Verified 10/22/18 23:40 zinc Allergy Unknown RASH Verified 10/22/18 23:40 diphenhydramine AdvReac Intermediate BURNING Verified 10/22/18 23:40 EYES,DIZZY,BLISTERS Home Medications Home Medications Medication Instructions Recorded Confirmed Type Nguyễn KwikPen U-100 Insulin 40 unit SUBCUT AMPM 04/13/18 10/22/18 History aspirin [Aspirin Low Dose] 81 mg PO DAILY 04/13/18 10/22/18 History atorvastatin 40 mg PO DAILY 04/13/18 10/22/18 History cholecalciferol (vitamin D3) 2,000 unit PO DAILY 04/13/18 10/22/18 History ferrous sulfate 325 mg PO BIDM 04/13/18 10/22/18 History folic acid 1 mg PO DAILY 04/13/18 10/22/18 History gabapentin 300 mg PO BID 04/13/18 10/22/18 History lactulose [Enulose] 30 ml PO DIRECTED 04/13/18 10/22/18 History nadolol [Corgard] 20 mg PO DAILY 04/13/18 10/22/18 History ropinirole 0.5 mg PO HS 04/13/18 10/22/18 History escitalopram oxalate 10 mg PO DAILY 10/22/18 10/22/18 History furosemide 40 - 60 mg PO DAILY PRN 10/22/18 10/22/18 History insulin aspart U-100 [Novolog unit SUBCUT TID 10/22/18 History Flexpen U-100 Insulin] pantoprazole 40 mg PO QAM 10/22/18 10/22/18 History rifaximin [Xifaxan] 550 mg PO BID 10/22/18 10/22/18 History vit C,S-Hi-hysmr-lutein-zeaxan 2 cap PO DAILY 10/22/18 10/22/18 History [PreserVision AREDS-2] Past Med/Surg History Medical History Diabetes (Chronic) COPD (chronic obstructive pulmonary disease) (Chronic) HTN (hypertension) (Chronic) Psychological disorder (Acute) Right-sided chest wall pain (Acute) Fall (Acute) Syncope (Acute 11/16/13) Cholelithiasis (Acute) Sepsis (Acute) Pneumonia (Resolved) Chest pain (Acute) Hemochromatosis (Acute) Hypomagnesemia (Acute) Altered mental status Cirrhosis Edema (Acute) Hyperglycemia (Acute) Increased ammonia level Neuropathy Pancytopenia (Acute) Surgical History S/P cataract surgery S/P hysterectomy S/P shoulder surgery Family History Other Family history non-contributory Social History Preferred Language: [place] Communication Ability: Effective Director Of Entertainment Required: No Beliefs That Will Affect Care: None Current Living Situation: Family Current Living Situation Comment: lives with son Other Information That Helps Us Care for You: No Feels Safe at Home: Yes Safety Concerns: Feels Safe At This Time Smoking Status: Former smoker Hx Alcohol Use: No Hx Substance Use: No Review of Systems as per HPI Physical Exam Vital Signs (Past 24 Hours): Last Vital Signs Temp 37.9 C H 10/22/18 20:01 Pulse 58 L 10/23/18 01:03 Resp 15 10/23/18 01:03 BP 116/44 L 10/23/18 01:03 Pulse Ox 94 10/23/18 01:03 Physical Exam: General: In NAD, resting comfortably in bed, pleasant and cooperative with exam Neuro: Alert and oriented x 3 (able to state name, , knows at hospital unable to recall hospital name, knows it is september 2018 but says Wednesday); CN 2-12 intact, strength 5/5 bilateral upper and lower extremities, sensation equal bilateral upper and lower extremities CV: RRR, 3/6 systolic murmur Pulm: CTAB, equal breath sounds bilaterally, On RA GI: +BS, RUQ mildly TTP Extremities: 1+ LE edema bilateral with chronic venous stasis skin changes Results & Data Laboratory Results Abnormal lab results 10/22/18 10/22/18 10/22/18 Range/Units 18:46 18:58 18:58 RBC 3.06 L (4.2-5.4) M/uL Hgb 11.0 L (12.0-16.0) g/dL Hct 32.3 L (37-47) % MCV 105.6 H (80-100) fL MCH 35.9 H (25-34) pg RDW Std Deviation 55.8 H (36.4-46.3) fL Plt Count 54 L (130-400) K/uL MPV 11.0 H (7.4-10.4) fL Lymph # (Auto) 0.94 L (1.2-3.4) K/uL Barnwell # (Auto) 0.68 H (0.11-0.59) K/uL PT 12.9 H (9.0-12.0) Seconds INR 1.3 H (0.9-1.1) Chloride (98-107) mmol/L BUN (7-18) mg/dl BUN/Creatinine Ratio (10-20) Glucose (70-99) mg/dl POC Glucose 226 H (70-99) Calcium (8.5-10.1) mg/dl Total Bilirubin (0.2-1) mg/dl AST (15-37) U/L Ammonia (11-32) umol/L Albumin (3.4-5.0) gm/dl Globulin (2.5-4.0) gm/dl Albumin/Globulin Ratio (0.9-2) Urine Protein (Negative) Urine Blood (Negative) Urine RBC (0-4) /hpf CSF Glucose (40-70) mg/dl 10/22/18 10/22/18 10/22/18 Range/Units 18:58 18:58 19:05 RBC (4.2-5.4) M/uL Hgb (12.0-16.0) g/dL Hct (37-47) % MCV (80-100) fL MCH (25-34) pg RDW Std Deviation (36.4-46.3) fL Plt Count (130-400) K/uL MPV (7.4-10.4) fL Lymph # (Auto) (1.2-3.4) K/uL Barnwell # (Auto) (0.11-0.59) K/uL PT (9.0-12.0) Seconds INR (0.9-1.1) Chloride 111 H (98-107) mmol/L BUN 20 H (7-18) mg/dl BUN/Creatinine Ratio 24.2 H (10-20) Glucose 229 H (70-99) mg/dl POC Glucose (70-99) Calcium 8.0 L (8.5-10.1) mg/dl Total Bilirubin 1.6 H (0.2-1) mg/dl AST 78 H (15-37) U/L Ammonia 48.2 H (11-32) umol/L Albumin 2.6 L (3.4-5.0) gm/dl Globulin 4.1 H (2.5-4.0) gm/dl Albumin/Globulin Ratio 0.6 L (0.9-2) Urine Protein Trace H (Negative) Urine Blood 3+ H (Negative) Urine RBC >30 H (0-4) /hpf CSF Glucose (40-70) mg/dl 10/22/18 Range/Units 21:20 RBC (4.2-5.4) M/uL Hgb (12.0-16.0) g/dL Hct (37-47) % MCV (80-100) fL MCH (25-34) pg RDW Std Deviation (36.4-46.3) fL Plt Count (130-400) K/uL MPV (7.4-10.4) fL Lymph # (Auto) (1.2-3.4) K/uL Barnwell # (Auto) (0.11-0.59) K/uL PT (9.0-12.0) Seconds INR (0.9-1.1) Chloride (98-107) mmol/L BUN (7-18) mg/dl BUN/Creatinine Ratio (10-20) Glucose (70-99) mg/dl POC Glucose (70-99) Calcium (8.5-10.1) mg/dl Total Bilirubin (0.2-1) mg/dl AST (15-37) U/L Ammonia (11-32) umol/L Albumin (3.4-5.0) gm/dl Globulin (2.5-4.0) gm/dl Albumin/Globulin Ratio (0.9-2) Urine Protein (Negative) Urine Blood (Negative) Urine RBC (0-4) /hpf CSF Glucose 110 H (40-70) mg/dl Diagnostic Findings CT OF THE HEAD WITHOUT CONTRAST CLINICAL HISTORY: Stroke symptoms. Headache. Confusion. COMPARISON STUDY: Head CT April 13, 2018. CT DOSE: 638.56 mGycm TECHNIQUE: Helical axial images of the head were obtained without IV contrast. Automated exposure control was utilized for the study. A dose lowering technique was utilized adhering to the principles of ALARA. FINDINGS: No acute intracranial hemorrhage, midline shift or mass effect is present. Ventricular system is normal. Basilar cisterns are patent. There are no extra-axial collections. White matter hypodensities are unchanged and suggest mild small vessel disease. There are no findings to suggest acute dural sinus thrombosis or acute territorial infarct. There are no significant calvarial abnormalities. IMPRESSION: No acute intracranial findings. XR chest 1V portable CLINICAL HISTORY: stroke symptoms COMPARISON STUDY: Chest CT December 03, 2017. Chest radiograph April 13, 2018. FINDINGS: Lung volumes are normal. There is no pneumothorax or pleural effusion. Interstitial prominence is unchanged. There is no consolidation to suggest pneumonia. Cardiomediastinal silhouette is unremarkable. Appearance of the chest is unchanged. Postoperative findings within the left shoulder are noted. IMPRESSION: No acute cardiopulmonary findings. Code Status & VTE Plan Code Status Full Code VTE Prophylaxis Plan VTE Prophylaxis will be ordered: Yes Supervising Physician Co-Signing Physician Notes Attending addendum: I have physically seen this patient, have supervised the medical residents activities, and agree with the H&P unless as otherwise noted. Assessment and Plan: Altered mental status/hepatic encephalopathy/cirrhosis/NAFLD-- Ammonia level 48.2. Start lactulose 20 g 3 times daily, titrate to 3 bowel movements daily. Continue rifaximin Daily CBC with differential, chemistry profile, magnesium and ammonia levels Early coagulopathy with INR 1.3. Follow serially Follow CSF culture and Gram stain. Follow blood culture and sensitivity. Empiric treatment vancomycin IV and ceftriaxone IV. Remainder of orders notations as noted. (1) Altered mental status Altered mental status type: unspecified Qualified Code(s): R41.82 - Altered mental status, unspecified
--- NOTE | 2018-10-23 01:52 | Emergency Department Note ---
Entered by Kristopher Cunha acting as a scribe for History of Present Illness General Chief complaint: Illness Stated complaint: FELL YESTERDAY, CONFUSED TODAY CAN'T WALK Source: patient and family () Limitations: no limitations History of Present Illness Onset (ago): hour(s) (2 and half ) Location: head Severity: similar to prior episodes (when she does not take her medications) Pain Consistency: + constant Quality: + constant Associated symptoms: + confusion, + fever/chills (chills, no recorded fever), + headaches and + other (sore throat, fall) The patient is a 68 year old female who presents to the Emergency Room with complaints of a constant headache starting at 1600. The of the patient states she was at baseline after a fall yesterday at 1600 and today until 1600. The states she was sitting in a chair and slid out of the chair and fell. The patient states she hit her head from the fall. The patient states she has a headache, body aches, and feels like she got kicked in the head. The states the patient has liver disease and takes lactulose for that. He notes the patient is acting similar to her confusion she gets when she does not take the medications. He notes she has been taking lactulose regularly. The sband denies the patient having a facial droop. He notes the patient has had a sore throat for the past 2 days. The patient does not have a recorded fever but notes she has chills. The patient notes she got a flu shot this year. She does complain of some neck stiffness. Home Medications Home Medications Medication Instructions Recorded Confirmed Type Benignotanalyssa BroderickDavid U-100 Insulin 40 unit SUBCUT AMPM 04/13/18 10/22/18 History aspirin [Aspirin Low Dose] 81 mg PO DAILY 04/13/18 10/22/18 History atorvastatin 40 mg PO DAILY 04/13/18 10/22/18 History cholecalciferol (vitamin D3) 2,000 unit PO DAILY 04/13/18 10/22/18 History ferrous sulfate 325 mg PO BIDM 04/13/18 10/22/18 History folic acid 1 mg PO DAILY 04/13/18 10/22/18 History gabapentin 300 mg PO BID 04/13/18 10/22/18 History lactulose [Enulose] 30 ml PO DIRECTED 04/13/18 10/22/18 History nadolol [Corgard] 20 mg PO DAILY 04/13/18 10/22/18 History ropinirole 0.5 mg PO HS 04/13/18 10/22/18 History escitalopram oxalate 10 mg PO DAILY 10/22/18 10/22/18 History furosemide 40 - 60 mg PO DAILY PRN 10/22/18 10/22/18 History insulin aspart U-100 [Novolog unit SUBCUT TID 10/22/18 History Flexpen U-100 Insulin] pantoprazole 40 mg PO QAM 10/22/18 10/22/18 History rifaximin [Xifaxan] 550 mg PO BID 10/22/18 10/22/18 History vit C,H-Ue-hmgdw-lutein-zeaxan 2 cap PO DAILY 10/22/18 10/22/18 History [PreserVision AREDS-2] Allergies Allergy/AdvReac Type Severity Reaction Status Date / Time methyl salicylate Allergy Unknown RASH Verified 10/22/18 23:39 nickel Allergy Unknown RASH Verified 10/22/18 23:40 zinc Allergy Unknown RASH Verified 10/22/18 23:40 diphenhydramine AdvReac Intermediate BURNING Verified 10/22/18 23:40 EYES,DIZZY,BLISTERS Past Med/Surg History Medical History Diabetes (Chronic) COPD (chronic obstructive pulmonary disease) (Chronic) HTN (hypertension) (Chronic) Psychological disorder (Acute) Right-sided chest wall pain (Acute) Fall (Acute) Syncope (Acute 11/16/13) Cholelithiasis (Acute) Sepsis (Acute) Pneumonia (Resolved) Chest pain (Acute) Hemochromatosis (Acute) Hypomagnesemia (Acute) Altered mental status Cirrhosis Edema (Acute) Hyperglycemia (Acute) Increased ammonia level Neuropathy Pancytopenia (Acute) Surgical History S/P cataract surgery S/P hysterectomy S/P shoulder surgery Family History Other Family history non-contributory Social History Preferred Language: Lithuanian Visual Impairment: No Limitations Beliefs That Will Affect Care: None Current Living Situation: Family Current Living Situation Comment: lives with son Feels Safe at Home: Yes Smoking Status: Never smoker Hx Alcohol Use: No Hx Substance Use: No Review of Systems See HPI for pertinent positives & negatives. and A total of 10 systems reviewed and were otherwise negative Physical Exam Vital Signs Vital Signs - 24 hr 10/22/18 18:30 10/22/18 18:40 10/22/18 18:43 Temperature 38.5 C H Temperature Source Oral Sepsis Recent Fever Within 48 Hours No Sepsis Action Taken by Nursing No Action Required Pulse Rate 72 70 Pulse Rate [Right Finger] Pulse Rate from SpO2 Sensor 70 Pulse Rhythm Regular Pulse Rhythm [Right Finger] Pulse Strength Normal Pulse Strength [Right Finger] Respiratory Rate 22 Respiratory Effort / Characteristics Non-Labored Spontaneous Respiratory Depth Normal Respiratory Pattern Regular Blood Pressure 153/68 H 159/55 H Blood Pressure [Right Arm] Blood Pressure Mean 96 89 Blood Pressure Mean [Right Arm] Blood Pressure Position Sitting Blood Pressure Position [Right Arm] Pulse Oximetry 96 99 Oxygen Delivery Method Room Air Room Air 10/22/18 18:47 10/22/18 18:50 10/22/18 19:00 Temperature Temperature Source Sepsis Recent Fever Within 48 Hours Sepsis Action Taken by Nursing Pulse Rate 69 69 Pulse Rate [Right Finger] Pulse Rate from SpO2 Sensor 69 Pulse Rhythm Pulse Rhythm [Right Finger] Pulse Strength Pulse Strength [Right Finger] Respiratory Rate Respiratory Effort / Characteristics Respiratory Depth Respiratory Pattern Blood Pressure Blood Pressure [Right Arm] Blood Pressure Mean Blood Pressure Mean [Right Arm] Blood Pressure Position Blood Pressure Position [Right Arm] Pulse Oximetry 98 96 Oxygen Delivery Method Room Air 10/22/18 19:08 10/22/18 19:15 10/22/18 19:28 Temperature Temperature Source Sepsis Recent Fever Within 48 Hours Sepsis Action Taken by Nursing Pulse Rate 66 67 Pulse Rate [Right Finger] Pulse Rate from SpO2 Sensor 71 67 67 Pulse Rhythm Pulse Rhythm [Right Finger] Pulse Strength Pulse Strength [Right Finger] Respiratory Rate 26 H 22 Respiratory Effort / Characteristics Respiratory Depth Respiratory Pattern Blood Pressure 150/50 H 149/44 H Blood Pressure [Right Arm] Blood Pressure Mean 83 79 Blood Pressure Mean [Right Arm] Blood Pressure Position Blood Pressure Position [Right Arm] Pulse Oximetry 96 96 97 Oxygen Delivery Method 10/22/18 19:31 10/22/18 20:01 03/23/19 20:19 Temperature 39.4 C H 37.9 C H Temperature Source Sepsis Recent Fever Within 48 Hours Sepsis Action Taken by Nursing Pulse Rate 65 65 Pulse Rate [Right Finger] Pulse Rate from SpO2 Sensor 65 67 Pulse Rhythm Pulse Rhythm [Right Finger] Pulse Strength Pulse Strength [Right Finger] Respiratory Rate 18 16 Respiratory Effort / Characteristics Respiratory Depth Respiratory Pattern Blood Pressure 146/46 H 134/56 L Blood Pressure [Right Arm] Blood Pressure Mean 79 82 Blood Pressure Mean [Right Arm] Blood Pressure Position Blood Pressure Position [Right Arm] Pulse Oximetry 96 96 Oxygen Delivery Method Room Air 10/22/18 20:31 10/22/18 21:01 10/22/18 21:31 Temperature Temperature Source Sepsis Recent Fever Within 48 Hours Sepsis Action Taken by Nursing Pulse Rate 64 63 63 Pulse Rate [Right Finger] Pulse Rate from SpO2 Sensor 64 63 63 Pulse Rhythm Pulse Rhythm [Right Finger] Pulse Strength Pulse Strength [Right Finger] Respiratory Rate 20 16 23 Respiratory Effort / Characteristics Respiratory Depth Respiratory Pattern Blood Pressure 138/43 L 136/44 L 126/41 L Blood Pressure [Right Arm] Blood Pressure Mean 74 74 69 Blood Pressure Mean [Right Arm] Blood Pressure Position Blood Pressure Position [Right Arm] Pulse Oximetry 95 94 96 Oxygen Delivery Method 10/22/18 22:00 10/22/18 23:20 10/23/18 01:03 Temperature Temperature Source Sepsis Recent Fever Within 48 Hours Sepsis Action Taken by Nursing Pulse Rate Pulse Rate [Right Finger] 63 58 L Pulse Rate from SpO2 Sensor Pulse Rhythm Pulse Rhythm [Right Finger] Regular Regular Pulse Strength Pulse Strength [Right Finger] Normal Normal Respiratory Rate 16 15 Respiratory Effort / Characteristics Non-Labored Non-Labored Respiratory Depth Normal Normal Respiratory Pattern Regular Blood Pressure Blood Pressure [Right Arm] 124/53 L 116/44 L Blood Pressure Mean Blood Pressure Mean [Right Arm] 76 68 Blood Pressure Position Blood Pressure Position [Right Arm] Lying Pulse Oximetry 94 94 Oxygen Delivery Method Room Air Room Air Room Air Constitutional: Vital signs reviewed. Eyes: Pupils are equal round reactive to light. Conjunctiva are noninjected. ENT: Pharynx is clear without erythema or exudate. Mucous membranes are moist. Neck supple without meningeal signs. Respiratory: Clear to auscultation bilaterally. Breath sounds are equal bilaterally. Cardiovascular: Regular rate and rhythm. No rubs or gallops. GI: Soft, nondistended and nontender. Bowel sounds are present. Musculoskeletal: No peripheral edema. No lower extremity tenderness. Integumentary: No cyanosis. Neurological: Cranial nerves II-XII are intact. Motor is 5 out of 5 all extremities. Sensation is intact to light touch all extremities. Normal speech. No pronator drift. No limb ataxia. Alert and oriented to person and place only. Psychiatric: Unable to assess. Procedures Free Text Procedures Lumbar Puncture Indication: Fever and headache. Verbal consent was obtained after the risks and benefits were explained, including but not limited to headache, bleeding/clotting, scarring, infection, pain, and nerve damage. At this time, the risks of the procedure are less than the risks of NOT performing the procedure. A time out was taken and the correct patient and site identified. The patient was placed in the sitting position and the back was prepped with betadine and draped in the standard fashion. The L3 intervertebral space was identified, anesthetized locally with 1% lidocaine without epinephrine, and the spinal needle was inserted through the skin with the bevel parallel to the dural fibers. The needle was carefully advanced into the lumbar cistern and 4 tubes of clear CSF was obtained. The stylet was replaced and the needle was removed. A bandaid was placed and the patient was placed in the supine position. The patient tolerated the procedure well and there were no complications. Course 1836: Past medical records reviewed. The patient was evaluated in room B1 , and a complete history and physical examination were performed. 1841: I spoke with Dr. Mcdonald - Martin. He states the patient has a negative head CT. 1954: I reevaluated the patient. She states she still has headaches and neck stiffness. I recommended getting a LP. I discussed the risks and consequences ans she is agreeable. 2214: I looked at the lumbar puncture results and discussed them with the patient. Her states she is still pretty confused and is not back to baseline. I recommended hospitalization. I reviewed the patient's case with Dr. Kaba - RiNath[facility]ist. He will evaluate the patient for further management. 2223: I reevaluated the patient. She states she is still having back pain and is requesting pain medication. The inpatient team has not seen the patient yet. Administered Medications Discontinued Medications Ceftriaxone Sodium (Rocephin) Confirm Administered Dose 1,000 mg .[address]TE .[facility] ONE Stop: 10/22/18 21:33 Last Admin: 10/22/18 21:36 Dose: Not Given Documented by: [id number] Ceftriaxone Sodium 2,000 mg/ (Dextrose) 70 mls @ 100 mls/hr IV NOW STA Stop: 10/22/18 22:04 Last Infusion: 10/22/18 22:15 Dose: 0 mls/hr Documented by: [id number] Admin: 10/22/18 21:35 Dose: 100 mls/hr Documented by: [id number] Vancomycin HCl 1,000 mg/ (Sodium Chloride) 520 mls @ 200 mls/hr IV NOW ONE Stop: 10/22/18 23:52 Last Infusion: 10/23/18 00:41 Dose: 0 mls/hr Documented by: [id number] Admin: 10/22/18 21:59 Dose: 200 mls/hr Documented by: [id number] Ibuprofen (Advil) 200 mg PO NOW STA Stop: 10/22/18 18:50 Last Admin: 10/22/18 19:28 Dose: 200 mg Documented by: [id number] Lidocaine HCl (Xylocaine 1% (Local)) Confirm Administered Dose 20 ml .ROUTE .[facility] ONE Stop: 10/22/18 21:16 Last Admin: 10/22/18 21:16 Dose: 20 ml Documented by: [id number] Vancomycin HCl (Vancomycin Hcl) Confirm Administered Dose 1,000 mg .ROUTE .[facility] ONE Stop: 10/22/18 21:32 Last Admin: 10/22/18 21:36 Dose: Not Given Documented by: [id number] Medical Decision Making Differential Diagnosis Differential Diagnosis: Influenza, sepsis, UTI, Pneumonia, hepatic encephalopathy, and ICH. Medical Records Attestation: I reviewed the patient's medical records. Home Medications Current Medication List: was personally reviewed by la Laboratory Data Attestation: I reviewed the patient's lab results. Result diagrams: 10/22/18 18:58 10/22/18 18:58 Lab Results 10/22/18 10/22/18 10/22/18 Range/Units 18:46 18:55 18:58 WBC 5.14 (4.8-10.8) K/uL RBC 3.06 L (4.2-5.4) M/uL Hgb 11.0 L (12.0-16.0) g/dL Hct 32.3 L (37-47) % MCV 105.6 H (80-100) fL MCH 35.9 H (25-34) pg MCHC 34.1 (32-36) g/dL RDW Std Deviation 55.8 H (36.4-46.3) fL RDW Coeff of Chloe 14.5 (11.5-14.5) % Plt Count 54 L (130-400) K/uL MPV 11.0 H (7.4-10.4) fL Immature Gran % (Auto) 0.4 % Neut % (Auto) 66.7 % Lymph % (Auto) 18.3 % [place] % (Auto) 13.2 % Eos % (Auto) 1.2 % Baso % (Auto) 0.2 % Immature Gran # (Auto) 0.02 (0.00-0.02) K/uL Neut # (Auto) 3.43 (1.4-6.5) K/uL Lymph # (Auto) 0.94 L (1.2-3.4) K/uL [place] # (Auto) 0.68 H (0.11-0.59) K/uL Eos # (Auto) 0.06 (0-0.5) K/uL Baso # (Auto) 0.01 (0-0.2) K/uL PT (9.0-12.0) Seconds INR (0.9-1.1) APTT (21.0-31.0) Seconds PTT Ratio Sodium (136-145) mmol/L Potassium (3.5-5.1) mmol/L Chloride (98-107) mmol/L Carbon Dioxide (21-32) mmol/L Anion Gap (3-11) BUN (7-18) mg/dl Creatinine (0.6-1.2) mg/dl Est Cr Clr Drug Dosing Est GFR ( Amer) Est GFR (Non-Af Amer) BUN/Creatinine Ratio (10-20) Glucose (70-99) mg/dl POC Glucose 226 H (70-99) Lactate (0.4-2.0) mmol/L Calcium (8.5-10.1) mg/dl Total Bilirubin (0.2-1) mg/dl AST (15-37) U/L ALT (12-78) U/L Alkaline Phosphatase (45-117) U/L Ammonia (11-32) umol/L Total Protein (6.4-8.2) gm/dl Albumin (3.4-5.0) gm/dl Globulin (2.5-4.0) gm/dl Albumin/Globulin Ratio (0.9-2) Specimen Hemolysis Urine Color Urine Appearance (Clear) Urine pH (4.5-7.5) Ur Specific [place] (1.000-1.030) Urine Protein (Negative) Urine Glucose (UA) (Negative) Urine Ketones (Negative) Urine Blood (Negative) Urine Nitrite (Negative) Urine Bilirubin (Negative) Urine Urobilinogen (Negative) Ur Leukocyte Esterase (Negative) Urine RBC (0-4) /hpf Urine WBC (0-5) /hpf Ur Epithelial Cells (0-5) /lpf Urine Bacteria (Negative) Hyaline Casts (0-5) /lpf CSF Appearance CSF Color Xanthrochromic CSF WBC (0-5) /uL CSF RBC (0-) /uL CSF Cell Count Tube # CSF Chemistry Tube # CSF Glucose (40-70) mg/dl CSF Total Protein (15-45) mg/dl Influenza Type A (PCR) Neg for Influ A (Neg) Influenza Type B (PCR) Neg for Influ B (Neg) 10/22/18 10/22/18 10/22/18 Range/Units 18:58 18:58 18:58 WBC (4.8-10.8) K/uL RBC (4.2-5.4) M/uL Hgb (12.0-16.0) g/dL Hct (37-47) % MCV (80-100) fL MCH (25-34) pg MCHC (32-36) g/dL RDW Std Deviation (36.4-46.3) fL RDW Coeff of Chloe (11.5-14.5) % Plt Count (130-400) K/uL MPV (7.4-10.4) fL Immature Gran % (Auto) % Neut % (Auto) % Lymph % (Auto) % [place] % (Auto) % Eos % (Auto) % Baso % (Auto) % Immature Gran # (Auto) (0.00-0.02) K/uL Neut # (Auto) (1.4-6.5) K/uL Lymph # (Auto) (1.2-3.4) K/uL [place] # (Auto) (0.11-0.59) K/uL Eos # (Auto) (0-0.5) K/uL Baso # (Auto) (0-0.2) K/uL PT 12.9 H (9.0-12.0) Seconds INR 1.3 H (0.9-1.1) APTT 28.9 (21.0-31.0) Seconds PTT Ratio 1.1 Sodium 143 (136-145) mmol/L Potassium 3.5 (3.5-5.1) mmol/L Chloride 111 H (98-107) mmol/L Carbon Dioxide 28 (21-32) mmol/L Anion Gap 4.0 (3-11) BUN 20 H (7-18) mg/dl Creatinine 0.84 (0.6-1.2) mg/dl Est Cr Clr Drug Dosing Not Reportable Est GFR ( Amer) 82.2 Est GFR (Non-Af Amer) 70.9 BUN/Creatinine Ratio 24.2 H (10-20) Glucose 229 H (70-99) mg/dl POC Glucose (70-99) Lactate (0.4-2.0) mmol/L Calcium 8.0 L (8.5-10.1) mg/dl Total Bilirubin 1.6 H (0.2-1) mg/dl AST 78 H (15-37) U/L ALT 45 (12-78) U/L Alkaline Phosphatase 112 (45-117) U/L Ammonia 48.2 H (11-32) umol/L Total Protein 6.7 (6.4-8.2) gm/dl Albumin 2.6 L (3.4-5.0) gm/dl Globulin 4.1 H (2.5-4.0) gm/dl Albumin/Globulin Ratio 0.6 L (0.9-2) Specimen Hemolysis Urine Color Urine Appearance (Clear) Urine pH (4.5-7.5) Ur Specific [place] (1.000-1.030) Urine Protein (Negative) Urine Glucose (UA) (Negative) Urine Ketones (Negative) Urine Blood (Negative) Urine Nitrite (Negative) Urine Bilirubin (Negative) Urine Urobilinogen (Negative) Ur Leukocyte Esterase (Negative) Urine RBC (0-4) /hpf Urine WBC (0-5) /hpf Ur Epithelial Cells (0-5) /lpf Urine Bacteria (Negative) Hyaline Casts (0-5) /lpf CSF Appearance CSF Color Xanthrochromic CSF WBC (0-5) /uL CSF RBC (0-) /uL CSF Cell Count Tube # CSF Chemistry Tube # CSF Glucose (40-70) mg/dl CSF Total Protein (15-45) mg/dl Influenza Type A (PCR) (Neg) Influenza Type B (PCR) (Neg) 10/22/18 10/22/18 10/22/18 Range/Units 18:58 19:05 21:20 WBC (4.8-10.8) K/uL RBC (4.2-5.4) M/uL Hgb (12.0-16.0) g/dL Hct (37-47) % MCV (80-100) fL MCH (25-34) pg MCHC (32-36) g/dL RDW Std Deviation (36.4-46.3) fL RDW Coeff of Chloe (11.5-14.5) % Plt Count (130-400) K/uL MPV (7.4-10.4) fL Immature Gran % (Auto) % Neut % (Auto) % Lymph % (Auto) % [place] % (Auto) % Eos % (Auto) % Baso % (Auto) % Immature Gran # (Auto) (0.00-0.02) K/uL Neut # (Auto) (1.4-6.5) K/uL Lymph # (Auto) (1.2-3.4) K/uL [place] # (Auto) (0.11-0.59) K/uL Eos # (Auto) (0-0.5) K/uL Baso # (Auto) (0-0.2) K/uL PT (9.0-12.0) Seconds INR (0.9-1.1) APTT (21.0-31.0) Seconds PTT Ratio Sodium (136-145) mmol/L Potassium (3.5-5.1) mmol/L Chloride (98-107) mmol/L Carbon Dioxide (21-32) mmol/L Anion Gap (3-11) BUN (7-18) mg/dl Creatinine (0.6-1.2) mg/dl Est Cr Clr Drug Dosing Est GFR ( Amer) Est GFR (Non-Af Amer) BUN/Creatinine Ratio (10-20) Glucose (70-99) mg/dl POC Glucose (70-99) Lactate 1.6 (0.4-2.0) mmol/L Calcium (8.5-10.1) mg/dl Total Bilirubin (0.2-1) mg/dl AST (15-37) U/L ALT (12-78) U/L Alkaline Phosphatase (45-117) U/L Ammonia (11-32) umol/L Total Protein (6.4-8.2) gm/dl Albumin (3.4-5.0) gm/dl Globulin (2.5-4.0) gm/dl Albumin/Globulin Ratio (0.9-2) Specimen Hemolysis Urine Color Dark Yellow Urine Appearance Clear (Clear) Urine pH 5.5 (4.5-7.5) Ur Specific [place] 1.025 (1.000-1.030) Urine Protein Trace H (Negative) Urine Glucose (UA) Negative (Negative) Urine Ketones Negative (Negative) Urine Blood 3+ H (Negative) Urine Nitrite Negative (Negative) Urine Bilirubin Negative (Negative) Urine Urobilinogen Negative (Negative) Ur Leukocyte Esterase Negative (Negative) Urine RBC >30 H (0-4) /hpf Urine WBC 0-5 (0-5) /hpf Ur Epithelial Cells 0-5 (0-5) /lpf Urine Bacteria Negative (Negative) Hyaline Casts 0-5 (0-5) /lpf CSF Appearance Clear CSF Color Colorless Xanthrochromic No xanthochromia CSF WBC 0 (0-5) /uL CSF RBC 0 (0-) /uL CSF Cell Count Tube # 3 CSF Chemistry Tube # CSF Glucose (40-70) mg/dl CSF Total Protein (15-45) mg/dl Influenza Type A (PCR) (Neg) Influenza Type B (PCR) (Neg) 10/22/18 Range/Units 21:20 WBC (4.8-10.8) K/uL RBC (4.2-5.4) M/uL Hgb (12.0-16.0) g/dL Hct (37-47) % MCV (80-100) fL MCH (25-34) pg MCHC (32-36) g/dL RDW Std Deviation (36.4-46.3) fL RDW Coeff of Chloe (11.5-14.5) % Plt Count (130-400) K/uL MPV (7.4-10.4) fL Immature Gran % (Auto) % Neut % (Auto) % Lymph % (Auto) % [place] % (Auto) % Eos % (Auto) % Baso % (Auto) % Immature Gran # (Auto) (0.00-0.02) K/uL Neut # (Auto) (1.4-6.5) K/uL Lymph # (Auto) (1.2-3.4) K/uL [place] # (Auto) (0.11-0.59) K/uL Eos # (Auto) (0-0.5) K/uL Baso # (Auto) (0-0.2) K/uL PT (9.0-12.0) Seconds INR (0.9-1.1) APTT (21.0-31.0) Seconds PTT Ratio Sodium (136-145) mmol/L Potassium (3.5-5.1) mmol/L Chloride (98-107) mmol/L Carbon Dioxide (21-32) mmol/L Anion Gap (3-11) BUN (7-18) mg/dl Creatinine (0.6-1.2) mg/dl Est Cr Clr Drug Dosing Est GFR ( Amer) Est GFR (Non-Af Amer) BUN/Creatinine Ratio (10-20) Glucose (70-99) mg/dl POC Glucose (70-99) Lactate (0.4-2.0) mmol/L Calcium (8.5-10.1) mg/dl Total Bilirubin (0.2-1) mg/dl AST (15-37) U/L ALT (12-78) U/L Alkaline Phosphatase (45-117) U/L Ammonia (11-32) umol/L Total Protein (6.4-8.2) gm/dl Albumin (3.4-5.0) gm/dl Globulin (2.5-4.0) gm/dl Albumin/Globulin Ratio (0.9-2) Specimen Hemolysis Urine Color Urine Appearance (Clear) Urine pH (4.5-7.5) Ur Specific [place] (1.000-1.030) Urine Protein (Negative) Urine Glucose (UA) (Negative) Urine Ketones (Negative) Urine Blood (Negative) Urine Nitrite (Negative) Urine Bilirubin (Negative) Urine Urobilinogen (Negative) Ur Leukocyte Esterase (Negative) Urine RBC (0-4) /hpf Urine WBC (0-5) /hpf Ur Epithelial Cells (0-5) /lpf Urine Bacteria (Negative) Hyaline Casts (0-5) /lpf CSF Appearance CSF Color Xanthrochromic CSF WBC (0-5) /uL CSF RBC (0-) /uL CSF Cell Count Tube # CSF Chemistry Tube # 1 CSF Glucose 110 H (40-70) mg/dl CSF Total Protein 42.0 (15-45) mg/dl Influenza Type A (PCR) (Neg) Influenza Type B (PCR) (Neg) Imaging Data Radiologist's Impression: Radiology results as stated below per my review and the radiologist's interpretation: CT OF THE HEAD WITHOUT CONTRAST CLINICAL HISTORY: Stroke symptoms. Headache. Confusion. COMPARISON STUDY: Head CT April 13, 2018. CT DOSE: 638.56 mGycm TECHNIQUE: Helical axial images of the head were obtained without IV contrast. Automated exposure control was utilized for the study. A dose lowering technique was utilized adhering to the principles of ALARA. FINDINGS: No acute intracranial hemorrhage, midline shift or mass effect is present. Ventricular system is normal. Basilar cisterns are patent. There are no extra-axial collections. White matter hypodensities are unchanged and suggest mild small vessel disease. There are no findings to suggest acute dural sinus thrombosis or acute territorial infarct. There are no significant calvarial abnormalities. IMPRESSION: No acute intracranial findings. Electronically signed by: Donovan Mcdonald M.D. 10/22/2018 6:43 PM XR chest 1V portable CLINICAL HISTORY: stroke symptoms COMPARISON STUDY: Chest CT December 03, 2017. Chest radiograph April 13, 2018. FINDINGS: Lung volumes are normal. There is no pneumothorax or pleural effusion. Interstitial prominence is unchanged. There is no consolidation to suggest pneumonia. Cardiomediastinal silhouette is unremarkable. Appearance of the chest is unchanged. Postoperative findings within the left shoulder are noted. IMPRESSION: No acute cardiopulmonary findings. Electronically signed by: Donovan Mcdonald M.D. 10/22/2018 7:22 PM ECG Data Attestation: I personally reviewed and interpreted this ECG as follows: Indication: other (confusion) Rate (beats per minute): 71 Rhythm: sinus rhythm Findings: no PVC and no ST elevation Blood Pressure Blood Pressure Findings: Elevated blood pressure Blood Pressure Disposition: Referred to patients primary care provider MDM Narrative I did perform a limited focused review of portions of the patient's old chart on the electronic medical record. The patient was admitted in April for pancytopenia and generalized weakness. She has a history of esophageal varices. She had a scope done in 2016 which showed internal hemorrhoids and diverticulosis. She had an EGD done in 2017 which shoed grade 2 large esophageal varices. A stroke alert was called in triage by the nurse. They reported that the patient appeared to have a right facial droop. I did immediately evaluate the patient as noted above. She does not have any signs of a facial droop. She has a history of hepatic encephalopathy and is presenting with confusion. She is also febrile here with cough and cold symptoms. Neurologically she has no deficits other than being unable to state today's date. A stat CT of the head was ordered. I did review the images myself as well as the radiology report as described above. There is no evidence of acute intracranial abnormality. IV access was established. The patient was placed on a continuous bus driver/monitor. I did order and personally review the patient's 12-lead EKG and chest x-ray as described above. Twelve-lead EKG is unremarkable. There is no evidence of acute ischemia. Chest x-ray does not show any signs of pneumonia. Rapid flu testing is negative. Blood cultures were ordered. I did order and review the patient's blood work as noted in the electronic medical record. She is hyperglycemic. Her white blood cell count is not elevated. Her serum ammonia was over 48. She is febrile here and was given Motrin. I did reassess the patient. Her fever did come down. She still complains of a bad headache as well as neck stiffness. I did check a urine analysis which did not show signs of infection. The source of her fever is unknown and so I did recommend lumbar puncture to evaluate for possible meningitis. I did discuss risks and benefits with the patient and her who are agreeable with the procedure. I did perform the lumbar puncture as described above. I did then treat the patient with IV Rocephin and vancomycin. CSF analysis shows no signs of infection. The patient on reevaluation remains somewhat confused. I did recommend hospitalization for further care and evaluation. I did discuss case with hospitalist and manager rn case. Impression & Plan Altered mental status, Encephalopathy, hepatic, Right arm numbness, Acute febrile illness Discharge Plan Visit Data Chief Complaint: Illness Stated Complaint: FELL YESTERDAY, CONFUSED TODAY CAN'T WALK ED Provider: Carmelo Cid Discharge Problem: Altered mental status, Encephalopathy, hepatic, Right arm numbness, Acute febrile illness Forms Stand Alone Forms: My [facility] Prescriptions Prescriptions: No Action lactulose [Enulose] 10 gram/15 mL Solution 30 ml PO DIRECTED RF: 0 atorvastatin 40 mg Tablet 40 mg PO DAILY RF: 0 folic acid 1 mg Tablet 1 mg PO DAILY RF: 0 ropinirole 0.5 mg Tablet 0.5 mg PO HS RF: 0 gabapentin 300 mg Capsule 300 mg PO BID RF: 0 ferrous sulfate 325 mg (65 mg iron) Tablet 325 mg PO BIDM RF: 0 aspirin [Aspirin Low Dose] 81 mg Tablet,Delayed Release (Dr/Ec) 81 mg PO DAILY RF: 0 Basaglar KwikPen U-100 Insulin 100 unit/mL (3 mL) Insulin Pen 40 unit SUBCUT AMPM RF: 0 nadolol [Corgard] 20 mg Tablet 20 mg PO DAILY RF: 0 cholecalciferol (vitamin D3) 2,000 unit Capsule 2,000 unit PO DAILY RF: 0 furosemide 20 mg tablet 40 - 60 mg PO DAILY PRN (Reason: Edema) RF: 0 escitalopram oxalate 10 mg tablet 10 mg PO DAILY RF: 0 Novolog Flexpen U-100 Insulin 100 unit/mL (3 mL) Insulin Pen SUBCUT TID RF: 0 pantoprazole 40 mg tablet,delayed release (DR/EC) 40 mg PO QAM RF: 0 PreserVision AREDS-2 190-210-73-1 wh-spus-gn-mg Capsule 2 cap PO DAILY RF: 0 Xifaxan 550 mg tablet 550 mg PO BID RF: 0 Discharge Problem: Altered mental status Qualifiers: Altered mental status type: unspecified Qualified Code(s): R41.82 - Altered mental status, unspecified The scribe's documentation has been prepared under my direction and personally reviewed by me in its entirety. I confirm that the note above accurately reflects all work, treatment, procedures, and medical decision making performed by me.
[2018-10-23] MEDS ORDERED: FUROSEMIDE 20 MG TAB PO PRN (02:43)
[2018-10-23] MEDS ORDERED: ONDANSETRON INJ 2 MG/ML 2 ML VIAL IV PRN (02:43)
[2018-10-23] MEDS ORDERED: ALUMINUM/MAGNESIUM SUSP 30 ML UDC PO PRN (02:43)
[2018-10-23] MEDS ORDERED: ACETAMINOPHEN 325 MG TAB PO PRN (02:43)
[2018-10-23] MEDS ORDERED: CARBOHYDRATES FOR HYPOGLYCEMIA PO PRN (03:00)
[2018-10-23] MEDS ORDERED: GLUCOSE 10 TABS/TUBE PO PRN (03:00)
[2018-10-23] MEDS ORDERED: PATIENT'S HEIGHT AND/OR WEIGHT NEEDED SCH (03:00)
[2018-10-23] MEDS ORDERED: GLUCAGON FOR INJ 1 MG VIAL SQ PRN (03:00)
[2018-10-23] MEDS ORDERED: DEXTROSE 50% 50 ML SYRINGE IV PRN (03:00)
[2018-10-23] MEDS ORDERED: GLUCOSE 40% GEL 15 GM TUBE PO PRN (03:00)
[2018-10-23] MEDS: ENOXAPARIN INJ 40 MG/0.4 ML SYR SQ SCH (08:10)
[2018-10-23] MEDS: RIFAXIMIN 550 MG TABLET PO SCH ×2 (08:10→20:48)
[2018-10-23] MEDS: FOLIC ACID 1 MG TAB PO SCH (08:10)
[2018-10-23] MEDS: PANTOprazole 40 MG TAB PO SCH (08:11)
[2018-10-23] MEDS: NADOLOL 40 MG TAB PO SCH (08:11)
[2018-10-23] MEDS: ESCITALOPRAM OXALATE 10 MG TAB PO SCH (08:11)
[2018-10-23] MEDS: FERROUS SULFATE 325 MG TAB PO SCH ×2 (08:11→17:43)
[2018-10-23] MEDS: GABAPENTIN 300 MG CAP PO SCH ×2 (08:11→20:46)
[2018-10-23] MEDS: CHOLECALCIFEROL 1,000 UNITS TAB PO SCH (08:11)
[2018-10-23] MEDS: ATORVASTATIN 40 MG TAB PO SCH (08:11)
[2018-10-23] MEDS: ASPIRIN 81 MG ECTAB PO SCH (08:12)
[2018-10-23] MEDS: LACTULOSE SYRUP 20 GM/30 ML UDC PO SCH ×2 (08:12→12:55)
[2018-10-23] MEDS: INSULIN GLARGINE SOLOSTAR 100 UNITS/ML 3 ML PEN SQ SCH ×2 (08:50→20:44)
[2018-10-23] MEDS: INSULIN ASPART 100 UNITS/ML 3 ML PEN SC SCH ×4 (08:50→20:45)
--- NOTE | 2018-10-23 13:33 | Family Medicine Progress Note ---
Date of Service October 23, 2018 Assessment & Plan (1) Altered mental status: 68 y/o F with PMH of cirrhosis, DM2, COPD, RLS, GERD and depression presents with AMS noted by family at home. 1) AMS -about the same from yesterday, per pt. Will attempt to reach family to see what they think from baseline -likely Hepatic Encephalopathy in the setting of cirrhosis with elevated ammonia level - repeat ammonia 72 -no neurologic deficits on exam, still A&Ox1 -rocephin and vanc x 1 in the ED. LP in ER showed no signs of infxn on gram stain. Cx still pending along with blood cx -Head CT no acute IC abnormality . No other obvious signs of infx: UA/CXR normal. No recent med changes -Cont lactulose TID , increased to 40 mg to ensure more BM's 2) Cirrhosis/VELEZ - Transaminases at baseline . Cont Rifixamine, and lactulose 3) DM2 - Continue home lantus 40u BID - SSI Novolog goal 120-160 CF: 25 Carb ratio 1:7 - BSG ACHS 4) Chronic Venous Insufficiency with LE pain - Cont Lasix prn, not overloaded at present. - Cont gabapentin 5) RLS - Cont ropinirole 6) GERD -Cont protonix 7) Depression -Continue home escitalopram FULL DVT Prophylaxis: Lovenox 40mg SQ Dispo: Med surg Supervising Physician Co-Signing Physician Notes I personally examined the patient and verified all balbuena points of history and exam, discussed case, and agree with decision making with Dr Cunha. Notes that she is feeling much better, but then on further questioning, she seems to be fairly unaware of her current situation so it is difficult to tell how true her HPI really is. She denies any focal acute complaints. Vitals noted, in general she is awake and alert but quite disoriented even asking her where we are have to abandon the line of questioning, as she is not able to answer it straight, instead discussing how she is feeling. She is in no distress. HEENT normocephalic atraumatic mucous members are moist. Breathing is unlabored no accessory muscle use. Skin shows no rashes no pallor or icterus. Confusionappears consistent with an encephalopathy. While her ammonia is not markedly elevated, hepatic encephalopathy appears to be the most likely, as she shows no other signs/symptoms/findings consistent with any other metabolic encephalopathy, her medication list at home appears to be fairly low risk for an accidental/toxic/polypharmacy related encephalopathy, and she shows no signs or symptoms of infection to fit with a septic encephalopathy. Of note a repeat ammonia level this afternoon is going up, so it does corroborate a little more likely that hepatic encephalopathy is the culprit. Increase lactulose and follow, as long as her mentation clears with improvement in her ammonia, then the diagnosis would be confirmed, and if not we will need to continue to follow and workup further based on findings. Subjective 68 y/o F found in chair this AM in NAD. Reports no acute overnight events. Family not present this AM, so subjective history somewhat difficult to obtain. Pt thinks AMS about the same since yesterday. Still not able to assess location or time. Tolerating PO intake. No issues voiding. Had one BM today. Has not tried to ambulate. Pt notes no other acute concerns or complaints. Review of Systems All systems reviewed & are unremarkable except as noted in HPI & below Physical Exam Vital Signs (Past 24 Hours): Last Vital Signs Temp 37.4 C 10/23/18 07:30 Pulse 64 10/23/18 07:30 Resp 16 10/23/18 07:30 BP 134/55 L 10/23/18 07:30 Pulse Ox 93 10/23/18 07:30 Constitutional: WD/WN, vitals as above Eyes: PERRL, conjunctivae normal, anicteric sclerae ENMT: external ear and nose normal, oropharynx normal Respiratory: normal respiratory effort, lungs clear to auscultation Cardiovascular: RRR, no murmur, no edema Gastrointestinal (Abdomen): normal bowel sounds, soft, nontender, no hepatosplenomegaly Skin: no rashes, warm and dry Neurologic: CN2-12 intact, no focal neuro deficits Psychiatric: Affect: euthymic affect A&Ox1. Results & Data Laboratory Results Laboratory Results - last 24 hr 10/22/18 10/22/18 10/22/18 18:46 18:55 18:58 WBC 5.14 RBC 3.06 L Hgb 11.0 L Hct 32.3 L MCV 105.6 H MCH 35.9 H MCHC 34.1 RDW Std Deviation 55.8 H RDW Coeff of Chloe 14.5 Plt Count 54 L MPV 11.0 H Immature Gran % (Auto) 0.4 Neut % (Auto) 66.7 Lymph % (Auto) 18.3 [place] % (Auto) 13.2 Eos % (Auto) 1.2 Baso % (Auto) 0.2 Immature Gran # (Auto) 0.02 Neut # (Auto) 3.43 Lymph # (Auto) 0.94 L [place] # (Auto) 0.68 H Eos # (Auto) 0.06 Baso # (Auto) 0.01 PT INR APTT PTT Ratio Sodium Potassium Chloride Carbon Dioxide Anion Gap BUN Creatinine Est Cr Clr Drug Dosing Est GFR ( Amer) Est GFR (Non-Af Amer) BUN/Creatinine Ratio Glucose POC Glucose 226 H Lactate Calcium Total Bilirubin AST ALT Alkaline Phosphatase Ammonia Total Protein Albumin Globulin Albumin/Globulin Ratio Specimen Hemolysis Urine Color Urine Appearance Urine pH Ur Specific [place] Urine Protein Urine Glucose (UA) Urine Ketones Urine Blood Urine Nitrite Urine Bilirubin Urine Urobilinogen Ur Leukocyte Esterase Urine RBC Urine WBC Ur Epithelial Cells Urine Bacteria Hyaline Casts CSF Appearance CSF Color Xanthrochromic CSF WBC CSF RBC CSF Cell Count Tube # CSF Chemistry Tube # CSF Glucose CSF Total Protein Influenza Type A (PCR) Neg for Influ A Influenza Type B (PCR) Neg for Influ B 10/22/18 10/22/18 10/22/18 18:58 18:58 18:58 WBC RBC Hgb Hct MCV MCH MCHC RDW Std Deviation RDW Coeff of Chloe Plt Count MPV Immature Gran % (Auto) Neut % (Auto) Lymph % (Auto) [place] % (Auto) Eos % (Auto) Baso % (Auto) Immature Gran # (Auto) Neut # (Auto) Lymph # (Auto) [place] # (Auto) Eos # (Auto) Baso # (Auto) PT 12.9 H INR 1.3 H APTT 28.9 PTT Ratio 1.1 Sodium 143 Potassium 3.5 Chloride 111 H Carbon Dioxide 28 Anion Gap 4.0 BUN 20 H Creatinine 0.84 Est Cr Clr Drug Dosing Not Reportable Est GFR ( Amer) 82.2 Est GFR (Non-Af Amer) 70.9 BUN/Creatinine Ratio 24.2 H Glucose 229 H POC Glucose Lactate Calcium 8.0 L Total Bilirubin 1.6 H AST 78 H ALT 45 Alkaline Phosphatase 112 Ammonia 48.2 H Total Protein 6.7 Albumin 2.6 L Globulin 4.1 H Albumin/Globulin Ratio 0.6 L Specimen Hemolysis Urine Color Urine Appearance Urine pH Ur Specific [place] Urine Protein Urine Glucose (UA) Urine Ketones Urine Blood Urine Nitrite Urine Bilirubin Urine Urobilinogen Ur Leukocyte Esterase Urine RBC Urine WBC Ur Epithelial Cells Urine Bacteria Hyaline Casts CSF Appearance CSF Color Xanthrochromic CSF WBC CSF RBC CSF Cell Count Tube # CSF Chemistry Tube # CSF Glucose CSF Total Protein Influenza Type A (PCR) Influenza Type B (PCR) 10/22/18 10/22/18 10/22/18 18:58 19:05 21:20 WBC RBC Hgb Hct MCV MCH MCHC RDW Std Deviation RDW Coeff of Chloe Plt Count MPV Immature Gran % (Auto) Neut % (Auto) Lymph % (Auto) [place] % (Auto) Eos % (Auto) Baso % (Auto) Immature Gran # (Auto) Neut # (Auto) Lymph # (Auto) [place] # (Auto) Eos # (Auto) Baso # (Auto) PT INR APTT PTT Ratio Sodium Potassium Chloride Carbon Dioxide Anion Gap BUN Creatinine Est Cr Clr Drug Dosing Est GFR ( Amer) Est GFR (Non-Af Amer) BUN/Creatinine Ratio Glucose POC Glucose Lactate 1.6 Calcium Total Bilirubin AST ALT Alkaline Phosphatase Ammonia Total Protein Albumin Globulin Albumin/Globulin Ratio Specimen Hemolysis Urine Color Dark Yellow Urine Appearance Clear Urine pH 5.5 Ur Specific [place] 1.025 Urine Protein Trace H Urine Glucose (UA) Negative Urine Ketones Negative Urine Blood 3+ H Urine Nitrite Negative Urine Bilirubin Negative Urine Urobilinogen Negative Ur Leukocyte Esterase Negative Urine RBC >30 H Urine WBC 0-5 Ur Epithelial Cells 0-5 Urine Bacteria Negative Hyaline Casts 0-5 CSF Appearance Clear CSF Color Colorless Xanthrochromic No xanthochromia CSF WBC 0 CSF RBC 0 CSF Cell Count Tube # 3 CSF Chemistry Tube # CSF Glucose CSF Total Protein Influenza Type A (PCR) Influenza Type B (PCR) 10/22/18 10/23/18 10/23/18 21:20 02:47 07:39 WBC RBC Hgb Hct MCV MCH MCHC RDW Std Deviation RDW Coeff of Chloe Plt Count MPV Immature Gran % (Auto) Neut % (Auto) Lymph % (Auto) [place] % (Auto) Eos % (Auto) Baso % (Auto) Immature Gran # (Auto) Neut # (Auto) Lymph # (Auto) [place] # (Auto) Eos # (Auto) Baso # (Auto) PT INR APTT PTT Ratio Sodium Potassium Chloride Carbon Dioxide Anion Gap BUN Creatinine Est Cr Clr Drug Dosing Est GFR ( Amer) Est GFR (Non-Af Amer) BUN/Creatinine Ratio Glucose POC Glucose 151 H 139 H Lactate Calcium Total Bilirubin AST ALT Alkaline Phosphatase Ammonia Total Protein Albumin Globulin Albumin/Globulin Ratio Specimen Hemolysis Urine Color Urine Appearance Urine pH Ur Specific [place] Urine Protein Urine Glucose (UA) Urine Ketones Urine Blood Urine Nitrite Urine Bilirubin Urine Urobilinogen Ur Leukocyte Esterase Urine RBC Urine WBC Ur Epithelial Cells Urine Bacteria Hyaline Casts CSF Appearance CSF Color Xanthrochromic CSF WBC CSF RBC CSF Cell Count Tube # CSF Chemistry Tube # 1 CSF Glucose 110 H CSF Total Protein 42.0 Influenza Type A (PCR) Influenza Type B (PCR) 10/23/18 10/23/18 11:33 14:31 WBC RBC Hgb Hct MCV MCH MCHC RDW Std Deviation RDW Coeff of Chloe Plt Count MPV Immature Gran % (Auto) Neut % (Auto) Lymph % (Auto) [place] % (Auto) Eos % (Auto) Baso % (Auto) Immature Gran # (Auto) Neut # (Auto) Lymph # (Auto) [place] # (Auto) Eos # (Auto) Baso # (Auto) PT INR APTT PTT Ratio Sodium Potassium Chloride Carbon Dioxide Anion Gap BUN Creatinine Est Cr Clr Drug Dosing Est GFR ( Amer) Est GFR (Non-Af Amer) BUN/Creatinine Ratio Glucose POC Glucose 199 H Lactate Calcium Total Bilirubin AST ALT Alkaline Phosphatase Ammonia 72.0 H Total Protein Albumin Globulin Albumin/Globulin Ratio Specimen Hemolysis Urine Color Urine Appearance Urine pH Ur Specific [place] Urine Protein Urine Glucose (UA) Urine Ketones Urine Blood Urine Nitrite Urine Bilirubin Urine Urobilinogen Ur Leukocyte Esterase Urine RBC Urine WBC Ur Epithelial Cells Urine Bacteria Hyaline Casts CSF Appearance CSF Color Xanthrochromic CSF WBC CSF RBC CSF Cell Count Tube # CSF Chemistry Tube # CSF Glucose CSF Total Protein Influenza Type A (PCR) Influenza Type B (PCR) Medications Administered Current Inpatient Medications Acetaminophen (Tylenol) 650 mg PO Q4H PRN PRN Reason: pain/fever Stop: 11/22/18 02:42 Al Hydrox/Mg Hydrox/Simethicone (Maalox) 30 ml PO Q6H PRN PRN Reason: Dyspepsia Stop: 11/22/18 02:42 Aspirin (Ecotrin Ectab) 81 mg PO DAILY MELVI Stop: 11/22/18 08:59 Last Admin: 10/23/18 08:12 Dose: 81 mg Documented by: Atorvastatin Calcium (Lipitor) 40 mg PO DAILY MELVI Stop: 11/22/18 08:59 Last Admin: 10/23/18 08:11 Dose: 40 mg Documented by: Dextrose (Dextrose 50%) 25 - 50 ml IV UD PRN; Protocol PRN Reason: Hypoglycemia Protocol Stop: 11/22/18 02:59 Enoxaparin Sodium (Lovenox) 40 mg SQ QAM MELVI Stop: 11/22/18 08:59 Last Admin: 10/23/18 08:10 Dose: 40 mg Documented by: Escitalopram Oxalate (Lexapro) 10 mg PO DAILY MELVI Stop: 11/22/18 08:59 Last Admin: 10/23/18 08:11 Dose: 10 mg Documented by: Ferrous Sulfate (Feosol) 325 mg PO BIDM [facility] Stop: 11/22/18 07:59 Last Admin: 10/23/18 08:11 Dose: 325 mg Documented by: Folic Acid (Folvite) 1 mg PO DAILY [facility] Stop: 11/22/18 08:59 Last Admin: 10/23/18 08:10 Dose: 1 mg Documented by: Furosemide (Lasix) 40 - 60 mg PO DAILY PRN PRN Reason: Edema Stop: 11/22/18 02:42 Gabapentin (Neurontin) 300 mg PO BID [facility] Stop: 11/22/18 08:59 Last Admin: 10/23/18 08:11 Dose: 300 mg Documented by: Glucagon (Glucagen) 1 mg SQ UD PRN; Protocol PRN Reason: Hypoglycemia Protocol Stop: 11/22/18 02:59 Glucose (Glucose 40%) 15 - 30 gm PO UD PRN; Protocol PRN Reason: Hypoglycemia Protocol Stop: 11/22/18 02:59 Glucose (Dex4 Glucose) 4 - 8 tabs PO UD PRN; Protocol PRN Reason: Hypoglycemia Protocol Stop: 11/22/18 02:59 Insulin Aspart (Novolog Flexpen) 0 units SC ACHS [facility] Stop: 11/22/18 07:29 Last Admin: 10/23/18 12:54 Dose: 7 units Documented by: Insulin Glargine (Lantus Solostar Pen) 40 units SQ BID [facility] Stop: 11/22/18 08:59 Last Admin: 10/23/18 08:50 Dose: 40 units Documented by: Lactulose (Chronulac) 20 gm PO TID MELVI Stop: 11/22/18 08:59 Last Admin: 10/23/18 12:55 Dose: 20 gm Documented by: Miscellaneous (Carbohydrates For Hypoglycemia) 15 - 30 gm PO UD PRN PRN Reason: Hypoglycemia Treatment Stop: 11/22/18 02:59 Nadolol (Corgard) 20 mg PO DAILY MELVI Stop: 11/22/18 08:59 Last Admin: 10/23/18 08:11 Dose: 20 mg Documented by: Ondansetron HCl (Zofran) 4 mg IV Q6H PRN PRN Reason: Nausea Stop: 11/22/18 02:42 Pantoprazole Sodium (Protonix) 40 mg PO QAM MELVI Stop: 11/22/18 08:59 Last Admin: 10/23/18 08:11 Dose: 40 mg Documented by: Rifaximin (Xifaxan) 550 mg PO BID MELVI Stop: 11/22/18 08:59 Last Admin: 10/23/18 08:10 Dose: 550 mg Documented by: Ropinirole HCl (Requip) 0.5 mg PO HS MELVI Stop: 11/22/18 20:59 Vitamin D (Vitamin D3) 2,000 units PO DAILY MELVI Stop: 11/22/18 08:59 Last Admin: 10/23/18 08:11 Dose: 2,000 units Documented by: Resident Activity Tracking Resident Involvement: Resident Care Provided Care Provided: Adult Hospital Medicine (1) Altered mental status Altered mental status type: unspecified Qualified Code(s): R41.82 - Altered mental status, unspecified
[2018-10-23] MEDS: LACTULOSE SYRUP 10 GM/15 ML BTL 473 ML PO SCH (20:44)
[2018-10-23] MEDS: ROPINIROLE HCL 0.25 MG TABLET PO SCH (20:47)
[2018-10-23] MEDS ORDERED: LACTULOSE SYRUP 20 GM/30 ML UDC PO SCH (21:00)
[2018-10-24 06:22] LABS: Hematocrit (blood only) 29.3 % (37-47); Hemoglobin 9.8 g/dL (12.0-16.0); Mean Corpuscular Hgb Conc 33.4 g/dL (32-36); Mean Corpuscular Volume 104.3 fL (80-100); RDW Coefficient of Variation 14.5 % (11.5-14.5); RDW Standard Deviation 55.5 fL (36.4-46.3); Red Blood Count 2.81 M/uL (4.2-5.4)
[2018-10-24 06:23] LABS: Mean Platelet Volume 10.7 fL (7.4-10.4); Platelet Count 50 K/uL (130-400)
[2018-10-24 06:47] LABS: Basophils # (auto) 0.01 K/uL (0-0.2); Basophils % (auto) 0.2 %; Eosinophils # (auto) 0.05 K/uL (0-0.5); Eosinophils % (auto) 1.1 %; Giant Platelets 1+; Immature Granulocytes # (auto) 0.01 K/uL (0.00-0.02); Immature Granulocytes % (auto) 0.2 %; Lymphocytes % (auto) 25.5 %; Monocytes # (auto) 0.44 K/uL (0.11-0.59); Monocytes % (auto) 9.4 %; Neutrophils # (auto) 2.99 K/uL (1.4-6.5); Neutrophils % (auto) 63.6 %
[2018-10-24 06:50] LABS: Albumin Level 2.2 gm/dl (3.4-5.0); BUN Creatinine Ratio 28.9 (10-20); Calcium 7.5 mg/dl (8.5-10.1); Creatinine Clr Calc Pharmacy 79.5 ml/min; Est GFR (African American) 103.9; Est GFR (Non-African American) 89.7; Potassium 3.2 mmol/L (3.5-5.1)
[2018-10-24 06:53] LABS: Albumin Globulin Ratio 0.6 (0.9-2); Bilirubin,Total 1.3 mg/dl (0.2-1); Globulin 3.5 gm/dl (2.5-4.0); Total Protein 5.7 gm/dl (6.4-8.2)
[2018-10-24] MEDS: INSULIN GLARGINE SOLOSTAR 100 UNITS/ML 3 ML PEN SQ SCH ×2 (08:54→20:47)
[2018-10-24] MEDS: INSULIN ASPART 100 UNITS/ML 3 ML PEN SC SCH ×4 (08:54→20:48)
[2018-10-24] MEDS: GABAPENTIN 300 MG CAP PO SCH ×2 (09:05→20:49)
[2018-10-24] MEDS: ATORVASTATIN 40 MG TAB PO SCH (09:05)
[2018-10-24] MEDS: CHOLECALCIFEROL 1,000 UNITS TAB PO SCH (09:05)
[2018-10-24] MEDS: ESCITALOPRAM OXALATE 10 MG TAB PO SCH (09:05)
[2018-10-24] MEDS: LACTULOSE SYRUP 10 GM/15 ML BTL 473 ML PO SCH ×3 (09:05→20:49)
[2018-10-24] MEDS: RIFAXIMIN 550 MG TABLET PO SCH ×2 (09:05→21:10)
[2018-10-24] MEDS: FOLIC ACID 1 MG TAB PO SCH (09:06)
[2018-10-24] MEDS: POTASSIUM CHLORIDE 20 MEQ TABCR PO SCH (09:06)
[2018-10-24] MEDS: ASPIRIN 81 MG ECTAB PO SCH (09:06)
[2018-10-24] MEDS: NADOLOL 40 MG TAB PO SCH (09:06)
[2018-10-24] MEDS: PANTOprazole 40 MG TAB PO SCH (09:07)
[2018-10-24] MEDS: ENOXAPARIN INJ 40 MG/0.4 ML SYR SQ SCH (09:07)
[2018-10-24] MEDS: FERROUS SULFATE 325 MG TAB PO SCH ×2 (09:14→17:52)
[2018-10-24] MEDS ORDERED: CALCIUM CARBONATE 500 MG CHEWABLE TAB PO PRN (09:28)
--- NOTE | 2018-10-24 11:52 | XRay Report ---
XR chest 2V routine CLINICAL HISTORY: Atypical chest pain COMPARISON STUDY: No previous studies for comparison. FINDINGS: The heart remains mildly enlarged. There is persistent mild interstitial thickening. There is minor basilar atelectasis. There is no lobar consolidation.[ IMPRESSION: Cardiomegaly and stable mild interstitial thickening. No evidence of lobar consolidation. Electronically signed by: Cristhian Frost M.D. 10/24/2018 11:51 AM
--- NOTE | 2018-10-24 16:41 | Family Medicine Progress Note ---
Date of Service October 24, 2018 Assessment & Plan (1) Altered mental status: 68 y/o F with PMH of cirrhosis, DM2, COPD, RLS, GERD and depression presents with AMS noted by family at home. 1) AMS -improved since admission, per pt. Will attempt to reach family to see what they think from baseline -likely Hepatic Encephalopathy in the setting of cirrhosis with elevated ammonia level - repeat ammonia 67, downtrending -no neurologic deficits on exam, A&Ox3 although takes some time to think of responses -rocephin and vanc x 1 in the ED. LP in ER showed no signs of infxn on gram stain. Cx shows no growth, blood cx NGTD -Head CT no acute IC abnormality . No other obvious signs of infx: UA/CXR normal. No recent med changes -Cont lactulose TID , increased to 40 mg 10/23 to ensure more BM's 2) Cirrhosis/VELEZ - Transaminases at baseline . Cont Rifixamine, and lactulose 3) DM2 - Continue home lantus 40u BID - SSI Novolog goal 120-160 CF: 25 Carb ratio 1:7 - BSG ACHS 4) Chronic Venous Insufficiency with LE pain - Cont Lasix prn, not overloaded at present. - Cont gabapentin 5) RLS - Cont ropinirole 6) GERD -Cont protonix 7) Depression -Continue home escitalopram 8) Cough -crackles auscultated on exam today. CXR ordered: Stable mild interstitial thickening and no evidence of lobar consolidation. -tessalon perles ordered -Will continue to monitor 9) Hypokalemia/Hypocalcemia -K 3.2, Ca 7.5 this AM. PO K/Ca tabs scheduled qAM, will cont trend levels FULL DVT Prophylaxis: Lovenox 40mg SQ Dispo: Med surg , hopefully d/c tomorrow or day after if continued improvement Supervising Physician Co-Signing Physician Notes Attending attestation Pt seen and examined in concert with Dr. Cunha. In agreement with the documented findings as noted in the resident documentation with any exceptions or additions as noted here. Improved mental status without family at bedside to check baseline, oriented to self and mostly place and time. Persistent, minimally productive cough which has been present for days. On examination, S1/S2 nl RRR no MCG. Good air movement throughout but with some rhonchi which did not fully clear with coughing. Acute/Subacute hepatic encephalopathy - improved with lactulose, continue. Cough - CXR and tessalon, monitor for changes. encourage IS Pancytopenia - stable, continue to monitor CBC Else see resident documentation as noted. Subjective 68 y/o F found in chair this AM in NAD. Reports no acute overnight events. Family not present this AM, so subjective history somewhat difficult to obtain. Pt thinks AMS improved since yesterday. Given enough time, pt able to assess/oriented to location, year, and person. Tolerating PO intake. No issues voiding. Had multiple BM today, notes soreness 2/2 going to bathroom so much but tolerable. No issues with ambulation. Also notes ongoing productive cough. Pt notes no other acute concerns or complaints. Physical Exam Vital Signs (Past 24 Hours): Last Vital Signs Temp 36.9 C 10/24/18 14:59 Pulse 61 10/24/18 14:59 Resp 16 10/24/18 14:59 BP 94/53 L 10/24/18 14:59 Pulse Ox 100 10/24/18 14:59 Constitutional: WD/WN, vitals as above Eyes: PERRL, conjunctivae normal, anicteric sclerae ENMT: external ear and nose normal, oropharynx normal Respiratory: crackles to auscultation Cardiovascular: RRR, no murmur, no edema Gastrointestinal (Abdomen): normal bowel sounds, soft, nontender, no hepatosplenomegaly Skin: no rashes, warm and dry Psychiatric: Affect: euthymic affect Results & Data Laboratory Results Laboratory Results - last 24 hr 10/23/18 10/23/18 10/24/18 16:51 20:23 05:58 WBC 4.70 L RBC 2.81 L Hgb 9.8 L Hct 29.3 L MCV 104.3 H MCH 34.9 H MCHC 33.4 RDW Std Deviation 55.5 H RDW Coeff of Chloe 14.5 Plt Count 50 L MPV 10.7 H Immature Gran % (Auto) 0.2 Neut % (Auto) 63.6 Lymph % (Auto) 25.5 Kane % (Auto) 9.4 Eos % (Auto) 1.1 Baso % (Auto) 0.2 Immature Gran # (Auto) 0.01 Neut # (Auto) 2.99 Lymph # (Auto) 1.20 Kane # (Auto) 0.44 Eos # (Auto) 0.05 Baso # (Auto) 0.01 Giant Platelets 1+ Sodium Potassium Chloride Carbon Dioxide Anion Gap BUN Creatinine Est Cr Clr Drug Dosing Est GFR ( Amer) Est GFR (Non-Af Amer) BUN/Creatinine Ratio Glucose POC Glucose 193 H 206 H Calcium Total Bilirubin AST ALT Alkaline Phosphatase Ammonia Total Protein Albumin Globulin Albumin/Globulin Ratio 10/24/18 10/24/18 10/24/18 05:58 05:58 07:32 WBC RBC Hgb Hct MCV MCH MCHC RDW Std Deviation RDW Coeff of Chloe Plt Count MPV Immature Gran % (Auto) Neut % (Auto) Lymph % (Auto) Kane % (Auto) Eos % (Auto) Baso % (Auto) Immature Gran # (Auto) Neut # (Auto) Lymph # (Auto) Kane # (Auto) Eos # (Auto) Baso # (Auto) Giant Platelets Sodium 143 Potassium 3.2 L Chloride 112 H Carbon Dioxide 26 Anion Gap 5.0 BUN 19 H Creatinine 0.67 Est Cr Clr Drug Dosing 79.5 Est GFR ( Amer) 103.9 Est GFR (Non-Af Amer) 89.7 BUN/Creatinine Ratio 28.9 H Glucose 146 H POC Glucose 138 H Calcium 7.5 L Total Bilirubin 1.3 H AST 60 H ALT 33 Alkaline Phosphatase 94 Ammonia 67.0 H Total Protein 5.7 L Albumin 2.2 L Globulin 3.5 Albumin/Globulin Ratio 0.6 L 10/24/18 11:17 WBC RBC Hgb Hct MCV MCH MCHC RDW Std Deviation RDW Coeff of Chloe Plt Count MPV Immature Gran % (Auto) Neut % (Auto) Lymph % (Auto) Kane % (Auto) Eos % (Auto) Baso % (Auto) Immature Gran # (Auto) Neut # (Auto) Lymph # (Auto) Kane # (Auto) Eos # (Auto) Baso # (Auto) Giant Platelets Sodium Potassium Chloride Carbon Dioxide Anion Gap BUN Creatinine Est Cr Clr Drug Dosing Est GFR ( Amer) Est GFR (Non-Af Amer) BUN/Creatinine Ratio Glucose POC Glucose 195 H Calcium Total Bilirubin AST ALT Alkaline Phosphatase Ammonia Total Protein Albumin Globulin Albumin/Globulin Ratio Medications Administered Current Inpatient Medications Acetaminophen (Tylenol) 650 mg PO Q4H PRN PRN Reason: pain/fever Stop: 11/22/18 02:42 Al Hydrox/Mg Hydrox/Simethicone (Maalox) 30 ml PO Q6H PRN PRN Reason: Dyspepsia Stop: 11/22/18 02:42 Aspirin (Ecotrin Ectab) 81 mg PO DAILY MELVI Stop: 11/22/18 08:59 Last Admin: 10/24/18 09:06 Dose: 81 mg Documented by: Atorvastatin Calcium (Lipitor) 40 mg PO DAILY MELVI Stop: 11/22/18 08:59 Last Admin: 10/24/18 09:05 Dose: 40 mg Documented by: Calcium Carbonate (Tums) 1,500 mg PO QAM PRN PRN Reason: Indigestion Stop: 11/23/18 09:27 Dextrose (Dextrose 50%) 25 - 50 ml IV UD PRN; Protocol PRN Reason: Hypoglycemia Protocol Stop: 11/22/18 02:59 Enoxaparin Sodium (Lovenox) 40 mg SQ QAM MELVI Stop: 11/22/18 08:59 Last Admin: 10/24/18 09:07 Dose: 40 mg Documented by: Escitalopram Oxalate (Lexapro) 10 mg PO DAILY MELVI Stop: 11/22/18 08:59 Last Admin: 10/24/18 09:05 Dose: 10 mg Documented by: Ferrous Sulfate (Feosol) 325 mg PO BIDM MELVI Stop: 11/22/18 07:59 Last Admin: 10/24/18 09:14 Dose: 325 mg Documented by: Folic Acid (Folvite) 1 mg PO DAILY MELVI Stop: 11/22/18 08:59 Last Admin: 10/24/18 09:06 Dose: 1 mg Documented by: Furosemide (Lasix) 40 - 60 mg PO DAILY PRN PRN Reason: Edema Stop: 11/22/18 02:42 Gabapentin (Neurontin) 300 mg PO BID MELVI Stop: 11/22/18 08:59 Last Admin: 10/24/18 09:05 Dose: 300 mg Documented by: Glucagon (Glucagen) 1 mg SQ UD PRN; Protocol PRN Reason: Hypoglycemia Protocol Stop: 11/22/18 02:59 Glucose (Glucose 40%) 15 - 30 gm PO UD PRN; Protocol PRN Reason: Hypoglycemia Protocol Stop: 11/22/18 02:59 Glucose (Dex4 Glucose) 4 - 8 tabs PO UD PRN; Protocol PRN Reason: Hypoglycemia Protocol Stop: 11/22/18 02:59 Insulin Aspart (Novolog Flexpen) 0 units SC ACHS MELVI Stop: 11/22/18 07:29 Last Admin: 10/24/18 12:57 Dose: 8 units Documented by: Insulin Glargine (Lantus Solostar Pen) 40 units SQ BID MELVI Stop: 11/22/18 08:59 Last Admin: 10/24/18 08:54 Dose: 40 units Documented by: Lactulose (Chronulac) 40 gm PO TID MELVI Stop: 11/22/18 20:59 Last Admin: 10/24/18 12:58 Dose: 40 gm Documented by: Miscellaneous (Carbohydrates For Hypoglycemia) 15 - 30 gm PO UD PRN PRN Reason: Hypoglycemia Treatment Stop: 11/22/18 02:59 Nadolol (Corgard) 20 mg PO DAILY [facility] Stop: 11/22/18 08:59 Last Admin: 10/24/18 09:06 Dose: 20 mg Documented by: Ondansetron HCl (Zofran) 4 mg IV Q6H PRN PRN Reason: Nausea Stop: 11/22/18 02:42 Pantoprazole Sodium (Protonix) 40 mg PO QAM [facility] Stop: 11/22/18 08:59 Last Admin: 10/24/18 09:07 Dose: 40 mg Documented by: Potassium Chloride (Klor-Con M20) 40 meq PO QAM [facility] Stop: 11/23/18 08:59 Last Admin: 10/24/18 09:06 Dose: 40 meq Documented by: Rifaximin (Xifaxan) 550 mg PO BID [facility] Stop: 11/22/18 08:59 Last Admin: 10/24/18 09:05 Dose: 550 mg Documented by: Ropinirole HCl (Requip) 0.5 mg PO HS [facility] Stop: 11/22/18 20:59 Last Admin: 10/23/18 20:47 Dose: 0.5 mg Documented by: Vitamin D (Vitamin D3) 2,000 units PO DAILY [facility] Stop: 11/22/18 08:59 Last Admin: 10/24/18 09:05 Dose: 2,000 units Documented by: Resident Activity Tracking Resident Involvement: Resident Care Provided Care Provided: Adult Hospital Medicine (1) Altered mental status Altered mental status type: unspecified Qualified Code(s): R41.82 - Altered mental status, unspecified
[2018-10-24] MEDS: ROPINIROLE HCL 0.25 MG TABLET PO SCH (21:10)
[2018-10-25 01:25] LABS: Appearance Urine Cloudy (Clear); Bilirubin Urine Negative (Negative); Blood Urine 1+ (Negative); Color Urine Dark Yellow; Glucose Urine UA Negative (Negative); Ketones Urine Trace (Negative); Leukocyte Esterase Urine 2+ (Negative); Nitrite Urine Negative (Negative); Protein Urine 1+ (Negative); RBC Urine Automated 0-4 /hpf (0-4); Specific Gravity Urine 1.028 (1.000-1.030); Urobilinogen Urine Negative (Negative); WBC Urine Automated >30 /hpf (0-5)
[2018-10-25 01:39] LABS: Calcium Oxalate Crystals Urine Present (None Prsent)
[2018-10-25 01:40] LABS: Bacteria Urine Automated 1+ (Negative); Mucus Urine Present (None Prsent)
[2018-10-25 06:52] LABS: Hematocrit (blood only) 28.7 % (37-47); Hemoglobin 9.8 g/dL (12.0-16.0); Mean Corpuscular Hgb Conc 34.1 g/dL (32-36); Mean Corpuscular Volume 105.1 fL (80-100); RDW Coefficient of Variation 14.9 % (11.5-14.5); RDW Standard Deviation 57.1 fL (36.4-46.3); Red Blood Count 2.73 M/uL (4.2-5.4); White Blood Count 2.84 K/uL (4.8-10.8)
[2018-10-25 07:21] LABS: Basophils # (auto) 0.02 K/uL (0-0.2); Basophils % (auto) 0.7 %; Eosinophils # (auto) 0.08 K/uL (0-0.5); Eosinophils % (auto) 2.8 %; Immature Granulocytes # (auto) 0.01 K/uL (0.00-0.02); Immature Granulocytes % (auto) 0.4 %; Lymphocytes # (auto) 1.12 K/uL (1.2-3.4); Lymphocytes % (auto) 39.4 %; Mean Platelet Volume 10.9 fL (7.4-10.4); Monocytes # (auto) 0.34 K/uL (0.11-0.59); Neutrophils # (auto) 1.27 K/uL (1.4-6.5); Neutrophils % (auto) 44.7 %; Platelet Count 50 K/uL (130-400); Platelet Estimate Decreased (Normal); RBC Morphology Unremarkable
[2018-10-25 07:26] LABS: Albumin Level 2.1 gm/dl (3.4-5.0); BUN Creatinine Ratio 33.8 (10-20); Calcium 7.6 mg/dl (8.5-10.1); Creatinine Clr Calc Pharmacy 81.9 ml/min; Est GFR (Non-African American) 90.6; Potassium 3.6 mmol/L (3.5-5.1)
[2018-10-25 07:29] LABS: Albumin Globulin Ratio 0.6 (0.9-2); Bilirubin,Total 0.9 mg/dl (0.2-1); Globulin 3.5 gm/dl (2.5-4.0); Total Protein 5.6 gm/dl (6.4-8.2)
[2018-10-25] MEDS: POTASSIUM CHLORIDE 20 MEQ TABCR PO SCH (08:43)
[2018-10-25] MEDS: INSULIN GLARGINE SOLOSTAR 100 UNITS/ML 3 ML PEN SQ SCH ×2 (08:45→21:27)
[2018-10-25] MEDS: INSULIN ASPART 100 UNITS/ML 3 ML PEN SC SCH ×4 (08:47→21:27)
[2018-10-25] MEDS: NADOLOL 40 MG TAB PO SCH (08:48)
[2018-10-25] MEDS: ENOXAPARIN INJ 40 MG/0.4 ML SYR SQ SCH (08:48)
[2018-10-25] MEDS: CHOLECALCIFEROL 1,000 UNITS TAB PO SCH (08:49)
[2018-10-25] MEDS: ASPIRIN 81 MG ECTAB PO SCH (08:49)
[2018-10-25] MEDS: FERROUS SULFATE 325 MG TAB PO SCH ×2 (08:49→18:09)
[2018-10-25] MEDS: RIFAXIMIN 550 MG TABLET PO SCH ×2 (08:49→21:29)
[2018-10-25] MEDS: ATORVASTATIN 40 MG TAB PO SCH (08:49)
[2018-10-25] MEDS: ESCITALOPRAM OXALATE 10 MG TAB PO SCH (08:50)
[2018-10-25] MEDS: GABAPENTIN 300 MG CAP PO SCH ×2 (08:50→21:30)
[2018-10-25] MEDS: PANTOprazole 40 MG TAB PO SCH (08:51)
[2018-10-25] MEDS: LACTULOSE SYRUP 10 GM/15 ML BTL 473 ML PO SCH (08:51)
[2018-10-25] MEDS: FOLIC ACID 1 MG TAB PO SCH (08:51)
[2018-10-25] MEDS: LACTULOSE SYRUP 20 GM/30 ML UDC PO SCH ×2 (13:10→21:25)
--- NOTE | 2018-10-25 15:53 | Family Medicine Progress Note ---
Date of Service October 25, 2018 Assessment & Plan (1) Altered mental status: 68 y/o F with PMH of cirrhosis, DM2, COPD, RLS, GERD and depression presents with AMS noted by family at home. 1) AMS -improved since admission, per pt. Will attempt to reach family to see what they think from baseline. Multiple attempts made today with no response. Will re- assess at end of day to see if present in room as pt suggested. -likely Hepatic Encephalopathy in the setting of cirrhosis with elevated ammonia level - repeat ammonia 40, downtrending -no neurologic deficits on exam, A&Ox2 although takes some time to think of responses -rocephin and vanc x 1 in the ED. LP in ER showed no signs of infxn on gram stain. Cx shows no growth, blood cx NGTD -Head CT no acute IC abnormality . No other obvious signs of infx: UA/CXR normal. No recent med changes -Cont lactulose TID , decreased to 20 mg from 40 mg as pt's ammonia/AMS improving 2) Cirrhosis/VELEZ - Transaminases at baseline . Cont Rifixamine, and lactulose 3) DM2 - Continue home lantus 40u BID - SSI Novolog goal 120-160 CF: 20 (decreased from 25 as BSGs measuring 190s- 200s) Carb ratio 1:7. Will cont adjust as needed - BSG ACHS 4) Chronic Venous Insufficiency with LE pain - Cont Lasix prn, not overloaded at present. - Cont gabapentin 5) RLS - Cont ropinirole 6) GERD -Cont protonix 7) Depression -Continue home escitalopram 8) Cough -Lung exam improved today today. CXR 10/24: Stable mild interstitial thickening and no evidence of lobar consolidation. -tessalon perles ordered -Will continue to monitor. Incentive spirometer given today to prevent atelectasis. 9) Hypokalemia/Hypocalcemia -K 3.6, Ca 7.6 this AM. PO K/Ca tabs scheduled qAM, will cont trend levels FULL DVT Prophylaxis: Lovenox 40mg SQ Dispo: Med surg , hopefully d/c tonight, more likely tomorrow morning Supervising Physician Co-Signing Physician Notes Attending attestation Pt seen and examined in concert with Dr. Cunha. In agreement with the documented findings as noted in the resident documentation with any exceptions or additions as noted here. Sitting comfortably in bedside chair with complaint of increased frequency of BM on increased lactulose dosing. Mild nonproductive cough. On examination, rhonchorous breath sounds throughout which clear with cough w/ CXR without alarming findings. S1/S2 nl RRR no MCG. Abd NT/ND BS +ve Acute/Subacute hepatic encephalopathy - improved with lactulose, but increasing frequency of BM, so agree w/ taper dosing for now and monitor ammonia. Cough - CXR without acute cause. Continue tessalon, encourage IS. DMII - tighten CF and continue ISS/lantus regimen Pancytopenia - stable, continue to monitor CBC Else see resident documentation as noted. Subjective 68 y/o F found in chair this AM in NAD. Reports no acute overnight events. Family not present this AM, so subjective history somewhat difficult to obtain. Pt continues to believe AMS improving day by day. Given enough time, pt able to assess/oriented to location and person. Tolerating PO intake. No issues voiding. Had multiple BM today, notes soreness 2/2 going to bathroom so much but tolerable. No issues with ambulation. Cough improved. Pt notes no other acute concerns or complaints. Physical Exam Vital Signs (Past 24 Hours): Last Vital Signs Temp 36.8 C 10/25/18 07:54 Pulse 58 L 10/25/18 07:54 Resp 18 10/25/18 07:54 BP 132/74 10/25/18 07:54 Pulse Ox 93 10/25/18 07:54 Constitutional: WD/WN, vitals as above Eyes: PERRL, conjunctivae normal, anicteric sclerae ENMT: external ear and nose normal, oropharynx normal Respiratory: normal respiratory effort, lungs clear to auscultation Cardiovascular: RRR, no murmur, no edema Gastrointestinal (Abdomen): normal bowel sounds, soft, nontender, no hepatosplenomegaly Skin: no rashes, warm and dry Psychiatric: Affect: euthymic affect A&Ox2. Resident Activity Tracking Resident Involvement: Resident Care Provided Care Provided: Adult Hospital Medicine (1) Altered mental status Altered mental status type: unspecified Qualified Code(s): R41.82 - Altered mental status, unspecified
[2018-10-25] MEDS: ROPINIROLE HCL 0.25 MG TABLET PO SCH (21:29)
[2018-10-26 06:47] LABS: Hemoglobin 9.8 g/dL (12.0-16.0); Mean Corpuscular Hgb Conc 33.8 g/dL (32-36); Mean Corpuscular Volume 104.7 fL (80-100); RDW Coefficient of Variation 14.6 % (11.5-14.5); RDW Standard Deviation 56.4 fL (36.4-46.3); Red Blood Count 2.77 M/uL (4.2-5.4)
[2018-10-26 06:48] LABS: Mean Platelet Volume 10.4 fL (7.4-10.4); Platelet Count 52 K/uL (130-400)
[2018-10-26 07:10] LABS: Basophils # (auto) 0.01 K/uL (0-0.2); Basophils % (auto) 0.4 %; Eosinophils # (auto) 0.11 K/uL (0-0.5); Eosinophils % (auto) 4.4 %; Immature Granulocytes # (auto) 0.01 K/uL (0.00-0.02); Immature Granulocytes % (auto) 0.4 %; Lymphocytes # (auto) 1.07 K/uL (1.2-3.4); Lymphocytes % (auto) 42.8 %; Monocytes # (auto) 0.24 K/uL (0.11-0.59); Monocytes % (auto) 9.6 %; Neutrophils # (auto) 1.06 K/uL (1.4-6.5); Neutrophils % (auto) 42.4 %
[2018-10-26 07:26] LABS: Albumin Globulin Ratio 0.6 (0.9-2); Albumin Level 2.1 gm/dl (3.4-5.0); BUN Creatinine Ratio 37.7 (10-20); Bilirubin,Total 0.8 mg/dl (0.2-1); Calcium 7.9 mg/dl (8.5-10.1); Creatinine Clr Calc Pharmacy 96.8 ml/min; Est GFR (African American) 110.9; Est GFR (Non-African American) 95.7; Globulin 3.3 gm/dl (2.5-4.0); Potassium 4.2 mmol/L (3.5-5.1); Total Protein 5.4 gm/dl (6.4-8.2)
[2018-10-26] MEDS: ASPIRIN 81 MG ECTAB PO SCH (08:29)
[2018-10-26] MEDS: FERROUS SULFATE 325 MG TAB PO SCH ×2 (08:29→17:44)
[2018-10-26] MEDS: ATORVASTATIN 40 MG TAB PO SCH (08:29)
[2018-10-26] MEDS: GABAPENTIN 300 MG CAP PO SCH (08:29)
[2018-10-26] MEDS: FOLIC ACID 1 MG TAB PO SCH (08:29)
[2018-10-26] MEDS: LACTULOSE SYRUP 30 GM/45 ML UDP PO SCH ×2 (08:29→12:52)
[2018-10-26] MEDS: ESCITALOPRAM OXALATE 10 MG TAB PO SCH (08:29)
[2018-10-26] MEDS: CHOLECALCIFEROL 1,000 UNITS TAB PO SCH (08:29)
[2018-10-26] MEDS: RIFAXIMIN 550 MG TABLET PO SCH (08:30)
[2018-10-26] MEDS: ENOXAPARIN INJ 40 MG/0.4 ML SYR SQ SCH (08:30)
[2018-10-26] MEDS: NADOLOL 40 MG TAB PO SCH (08:30)
[2018-10-26] MEDS: PANTOprazole 40 MG TAB PO SCH (08:30)
[2018-10-26] MEDS: POTASSIUM CHLORIDE 20 MEQ TABCR PO SCH (08:31)
[2018-10-26] MEDS: INSULIN ASPART 100 UNITS/ML 3 ML PEN SC SCH ×3 (08:33→17:45)
[2018-10-26] MEDS: INSULIN GLARGINE SOLOSTAR 100 UNITS/ML 3 ML PEN SQ SCH (08:34)
[2018-10-26] MEDS ORDERED: LACTULOSE SYRUP 20 GM/30 ML UDC PO SCH (09:00)
--- NOTE | 2018-10-26 17:04 | Discharge Summary ---
Date of Service October 26, 2018 Admission HPI Per Admitting Provider 68 year old female with hx of cirrhosis, DM2, COPD, hx of pancytopenia, chronic venous insufficiency, RLS, GERD and depression presented with AMS started this PM around 4pm. Per pt's son, pt was not "with it" and not acting like herself earlier today. Pt currently complaining of mild headache and occasional dizziness. Pt's last BM was this AM and pt's son also in agreement as he is pretty sure he did not have a bowel movement since 1pm. Pt having some blood on wiping after BMs but according to son has hx of hemorrhoids and also has rectal soreness from frequent BMs as a result of lactulose. Denies any cp, sob, abdominal pain, n/v, diarrhea/constipation, hematochezia, melena, numbness/tingling, or any weakness Per son, pt fell off computer/rolling chair yesterday but did not have any symptoms and was able to walk to car without any issues after the incident. Pt's son believes pt's face looks similar to her baseline and is not concerned about any weakness in her extremities aside from mental status being off baseline which is now improving since arrival. Principal Diagnosis AMS 2/2 hepatic encephalopathy Discharge Exam Constitutional WD/WN, vitals as above Eyes PERRL, conjunctivae normal, anicteric sclerae ENMT external ear and nose normal, oropharynx normal Respiratory normal respiratory effort, lungs clear to auscultation Cardiovascular RRR, no murmur, no edema Gastrointestinal (Abdomen) normal bowel sounds, soft, nontender, no hepatosplenomegaly Skin no rashes, warm and dry Psychiatric Affect: euthymic affect Discharge Data Allergies Allergy/AdvReac Type Severity Reaction Status Date / Time methyl salicylate Allergy Unknown RASH Verified 10/22/18 23:39 nickel Allergy Unknown RASH Verified 10/22/18 23:40 zinc Allergy Unknown RASH Verified 10/22/18 23:40 diphenhydramine AdvReac Intermediate BURNING Verified 10/22/18 23:40 EYES,DIZZY,BLISTERS Consultations 10/22/18 21:55 ED Decision to Admit Stat Ordered Studies 10/22/18 18:33 CT head/brain wo con Stat Hospital Course (1) Altered mental status: 68 y/o F with PMH of cirrhosis, DM2, COPD, RLS, GERD and depression presented to [facility] ER 3/24 with AMS noted by family at home. Per pt's son, pt was not "with it" and not acting like herself. Pt had complaints of of mild headache and occasional dizziness with neck stiffness, noted some blood on wiping after BMs but according to son has hx of hemorrhoids and also has rectal soreness from frequent BMs as a result of lactulose. Otherwise, denied any CP, SOB, abd pain, n/v, diarrhea/constipation, hematochezia, melena, numbness/tingling, or any weakness. In ER, CT Head/CXR/EKG/UA all were normal. Ammonia was 48. The following was the medical management during stay here. 1) AMS -Day by day, pt had improvement in AMS, per own assessment and per son. The was likely 2/2 Hepatic Encephalopathy in the setting of cirrhosis with elevated ammonia level. Ammonia peaked in 70s, downtrending ever since. There were no neurologic deficits on exam throughout stay. Pt was usually A&Ox2 (location, self) although takes some time to think of responses. Pt received rocephin and vanc x 1 in the ED. LP in ER showed no signs of infxn on gram stain- Cx showed no growth, blood cx no growth. As above, Head CT no acute IC abnormality . No other obvious signs of infx: UA/CXR normal. No recent med changes noted. Pt was continued on lactulose TID, dose was increased to 40 mg to ensure adequate BMs and decreased to 30 mg TID after 2 days. At time of d/c, pt's son notes he believes pt is back at baseline cognition. Pt instructed to continue taking home lactulose and f/u with ammonia level (script given) before f/u with PCP within one week. 2) Cirrhosis/VELEZ- Pt's transaminases at baseline during stay here . Pt continued on Rifixamine, and lactulose as above. 3) DM2 - Pt was continued on home lantus 40u BID. Additonally, SSI Novolog with goal 120-160 CF: 25. Carb ratio 1:7. BSGs measured 190s-200s, and CF later changed to 20, with improvement in BSG in 80s to low 100s. 4) Chronic Venous Insufficiency with LE pain - Pt was not overloaded at during stay and we did not need to use home Lasix. We continued home gabapentin. 5) RLS- We continued home ropinirole 6) GERD- We continued home protonix 7) Depression- We continued home escitalopram 8) Cough- Pt had complaints of cough 2 days into admission. CXR showed stable mild interstitial thickening and no evidence of lobar consolidation. Tessalon perles were ordered and incentive spirometer given to prevent atelectasis. DVT Prophylaxis given with Lovenox 40mg SQ. At time of d/c, pt had no other acute concerns or complaints. Total Time Total Time Spent Total Time Spent (In Minutes): 30 min Discharge Plan Discharge Items Patient Disposition: Home - Self-Care Reason For Visit: HEPATIC ENCEPHALOPATHY Discharge Diagnosis: altered mental status Discharge Goals: Improve function and Increase independence Activity: Per 'Additional Instructions' section Non-emergency contact: Primary Care Provider Call non-emergency contact if: you have any medication questions and your symptoms worsen Follow-up/Referrals: Laila Thakkar MD [Primary Care Provider] - 11/04/18 10:30 am (Please, follow up at [facility] with Dr. Thakkar on Wednesday at 10:30 am. *If you need to change this appointment, call the office at [phone].) Diet: Carb Consistent or DM2 Addtl Provider Instructions: You were admitted for altered mental status that was noticed by your family. This was believed to be due to your ammonia levels, which was due to your underlying cirrhosis. We eliminated all other possible causes of infection, such as respiratory, urinary sources. Please follow the below instructions on discharge: -Please follow up with your PCP within one week of discharge -You will be given a prescription to get blood work done to check your ammonia levels. Please get this done before visiting your PCP on Wednesday10/26/2018 -If your symptoms return/worsen, then please come back into the hospital. -Continue your home lactulose dose. See your PCP to see if they want to make any adjustments to dosing. Prescriptions: Continued lactulose [Enulose] 10 gram/15 mL Solution 30 ml PO DIRECTED RF: 0 atorvastatin 40 mg Tablet 40 mg PO DAILY RF: 0 folic acid 1 mg Tablet 1 mg PO DAILY RF: 0 ropinirole 0.5 mg Tablet 0.5 mg PO HS RF: 0 gabapentin 300 mg Capsule 300 mg PO BID RF: 0 ferrous sulfate 325 mg (65 mg iron) Tablet 325 mg PO BIDM RF: 0 aspirin [Aspirin Low Dose] 81 mg Tablet,Delayed Release (Dr/Ec) 81 mg PO DAILY RF: 0 Basaglar KwikPen U-100 Insulin 100 unit/mL (3 mL) Insulin Pen 40 unit SUBCUT AMPM RF: 0 nadolol [Corgard] 20 mg Tablet 20 mg PO DAILY RF: 0 cholecalciferol (vitamin D3) 2,000 unit Capsule 2,000 unit PO DAILY RF: 0 furosemide 20 mg tablet 40 - 60 mg PO DAILY PRN (Reason: Edema) RF: 0 escitalopram oxalate 10 mg tablet 10 mg PO DAILY RF: 0 Novolog Flexpen U-100 Insulin 100 unit/mL (3 mL) Insulin Pen SUBCUT TID RF: 0 pantoprazole 40 mg tablet,delayed release (DR/EC) 40 mg PO QAM RF: 0 PreserVision AREDS-2 [id number] [id number] Capsule 2 cap PO DAILY RF: 0 Xifaxan 550 mg tablet 550 mg PO BID RF: 0 Stand-Alone Forms: [facility] Discharge Orders: Discharge Order (Routine); Ordered 10/26/18 Ordered By: Nico Kwok Admission Data Admit Date/Time: 10/23/18 01:38 Attending Provider: Bong Cuenca Admit Provider: Triston Kaba Primary Care Provider: Laila Thakkar Other Providers: Triston Kaba Service: Medical Other Interventions: Discharge Summary Assessment (RN) Last Done: 10/26/18 17:14 Supervising Physician Co-Signing Physician Notes Attending attestation Pt seen and examined in concert with Dr. Cunha. In agreement with the documented findings as noted in the resident documentation with any exceptions or additions as noted here. Resting comfortably in bed without acute complaint at this time. AAOx2 (self, place, not time) which is stable from previous. On examination, S1/S2 nl RRR no MCG. CTAB. Abd NT/ND BS+ve Delirium 2/2 hepatic encephalopathy - improved with lactulose, though ammonia did increase on decreased dosing to 20mg TID, so increased to 30mg TID at discharge for recheck at follow up. DMII - discharged on home lantus regimen w/ ISS as noted, slightly tightened fro improved control in hospital Else see resident documentation as noted. Resident Activity Tracking Resident Involvement: Resident Care Provided Care Provided: Adult Hospital Medicine
== END 2018-10-26 18:17 | disposition home health service (06) | DRG 441 ==
LOC: ED 18:19 → SUATTDRO 10-23 01:38 → 4E 10-23 01:38

== ENCOUNTER 2019-06-15 09:33 | Inpatient (IN) ==
[2019-06-15 10:07] LABS: Hematocrit (blood only) 29.9 % (37-47); Hemoglobin 10.5 g/dL (12.0-16.0); Mean Corpuscular Hemoglobin 35.8 pg (25-34); Mean Corpuscular Hgb Conc 35.1 g/dL (32-36); RDW Coefficient of Variation 14.1 % (11.5-14.5); RDW Standard Deviation 52.7 fL (36.4-46.3); Red Blood Count 2.93 M/uL (4.2-5.4)
[2019-06-15 10:13] LABS: Mean Platelet Volume 11.3 fL (7.4-10.4); Platelet Count 53 K/uL (130-400)
[2019-06-15 10:16] LABS: Partial Thromboplastin Ratio 1.1; Partial Thromboplastin Time 28.8 Seconds (21.0-31.0)
[2019-06-15 10:45] LABS: Albumin Globulin Ratio 0.6 (0.9-2); Albumin Level 2.4 gm/dl (3.4-5.0); BUN Creatinine Ratio 20.1 (10-20); Bilirubin,Total 1.5 mg/dl (0.2-1); Calcium 8.2 mg/dl (8.5-10.1); Est GFR (African American) 103.4; Est GFR (Non-African American) 89.2; Globulin 3.8 gm/dl (2.5-4.0); Potassium 3.9 mmol/L (3.5-5.1); Total Protein 6.2 gm/dl (6.4-8.2)
[2019-06-15] MEDS ORDERED: SODIUM CHLORIDE 0.9% 1000ML 1,000 ML IV SCH (10:45)
[2019-06-15 10:52] LABS: Basophils # (auto) 0.01 K/uL (0-0.2); Basophils % (auto) 0.3 %; Eosinophils # (auto) 0.12 K/uL (0-0.5); Eosinophils % (auto) 3.5 %; Lymphocytes # (auto) 0.98 K/uL (1.2-3.4); Lymphocytes % (auto) 28.8 %; Monocytes # (auto) 0.25 K/uL (0.11-0.59); Monocytes % (auto) 7.4 %; Neutrophils # (auto) 2.04 K/uL (1.4-6.5); RBC Morphology Unremarkable
--- NOTE | 2019-06-15 11:12 | CT Scan Report ---
CT head/brain wo con CLINICAL HISTORY: Acute change in mental status COMPARISON STUDY: 04/19/2019 TECHNIQUE: Axial CT of the brain is performed from the vertex to the skull base. IV contrast was not administered for this examination. A dose lowering technique was utilized adhering to the principles of ALARA. CT DOSE: 537.48 mGy.cm FINDINGS: No intra or extra-axial mass lesions are visualized. There is no CT evidence of acute cortical infarc tion. There is no evidence of midline shift. There is no acute hemorrhage. No calvarial fractures ar e visualized. There are patchy white matter hypodensities likely on a small vessel basis. There is no evidence of pathologic ventricular dilatation. There is a suspected partially empty sella There is no evidence of acute sinusitis IMPRESSION: No acute intracranial findings Electronically signed by: Cristhian Frost M.D. 06/15/2019 11:11 AM
--- NOTE | 2019-06-15 11:50 | XRay Report ---
XR abdomen 2V w PA chest CLINICAL HISTORY: Abdominal pain. History of hepatic carcinoma COMPARISON STUDY: No previous studies for comparison. FINDINGS: Supine and decubitus views the abdomen are provided for interpretation. Erect chest reveals mild interstitial thickening/edema. There is no lobar consolidation. There is no pneumoperitoneum. V iews the abdomen reveal no abnormally dilated loops of large or small bowel. There are no transition zones indicate bowel obstruction. There are right upper quadrant calcifications consistent with galls tones. IMPRESSION: 1. No evidence of bowel obstruction. No evidence of free air 2. Cholelithiasis 3. Cardiomegaly and interstitial edema Electronically signed by: Cristhian Frost M.D. 06/15/2019 11:49 AM
[2019-06-15 12:29] LABS: Appearance Urine Clear (Clear); Bacteria Urine Automated Negative (Negative); Bilirubin Urine Negative (Negative); Blood Urine 2+ (Negative); Cast Urine Automated 0 /lpf (0-5); Color Urine Yellow; Epithelial Cell Urine Auto 0-5 /lpf (0-5); Glucose Urine UA Negative (Negative); Ketones Urine Negative (Negative); Leukocyte Esterase Urine Trace (Negative); Nitrite Urine Negative (Negative); Protein Urine Negative (Negative); Specific Gravity Urine 1.007 (1.000-1.030); Urobilinogen Urine Negative (Negative); pH Urine 8.5 (4.5-7.5)
--- NOTE | 2019-06-15 13:19 | Emergency Department Note ---
Entered by Lina Martinez acting as a scribe for Henrietta Up DO History of Present Illness General Chief complaint: Illness Stated complaint: not feeling well, confused Time Seen by Provider: 06/15/19 10:18 Source: patient History of Present Illness Onset (ago): day(s) (this morning) Location: head and abdomen Pain Consistency: + other (episode) Maximum Pain Intensity: 3 Quality: + other (illness) Associated symptoms: + denies other symptoms (recent cold symptoms, trouble with bowel movements, trouble urinating), + confusion, + chest pain, + cough, + nausea/vomiting (Positive nausea. Negative vomiting. ), + shortness of breath and + other (abdominal pain, feels tired); no fever/chills (fever) The patient is a 68 year old female who presents to the Emergency Room with complaints of an episode of an illness starting this morning. The patient states that this morning while sitting she started having left sided chest pain. She notes that it made it difficult to breath. She states that along with it she has had some central abdominal pain and has been coughing some. She reports that she just feels tired like she hasnt gotten enough rest. The patient notes that she has had this chest pain before, but has never gotten checked out for it. The patient complains of nausea. The patients son notes that the patient does sometimes get confused about things and is now. He notes that it typically comes when her ammonia level is raised. He states that her confusion started 2 days ago. He notes that last week while at [facility] they diagnosed her with liver cancer. He notes that she is supposed to have an MRI done to be sent to her doctors, but they havent gotten it done yet. The patient denies a cardiac history, a recent cold, fever, vomiting, trouble with bowel movements, and trouble urinating. Son denies she has had any recent illness. No recent medication changes and he states she hadn't skipped any doses. He denies any change in her bowel or bladder function, but does note her appetite has been decreased yesterday and today. Home Medications Home Medications Medication Instructions Recorded Confirmed Type aspirin [Aspirin Low Dose] 81 mg PO QAM 04/13/18 06/15/19 History cholecalciferol (vitamin D3) 2,000 unit PO QAM 04/13/18 06/15/19 History atorvastatin 20 mg tablet 20 mg PO HS #90 tab 01/31/19 06/15/19 Rx furosemide 20 mg tablet 40 - 60 mg PO DAILY PRN #90 tab 01/31/19 06/15/19 Rx rifaximin 550 mg tablet 550 mg PO BID #60 tab 01/31/19 06/15/19 Rx docusate sodium 100 mg capsule 200 mg PO DAILY #60 cap 02/08/19 06/15/19 Rx gabapentin 300 mg capsule 300 mg PO BID #60 cap 03/01/19 06/15/19 Rx carboxymethylcellulose sodium 1 drp OPB DAILY 04/14/19 06/15/19 History [Refresh Liquigel] ferrous sulfate 325 mg PO BIDM 04/14/19 06/15/19 History insulin glargine [Basaglar KwikPen 40 unit SUBCUT BID 04/14/19 06/15/19 History U-100 Insulin] magnesium oxide 400 mg PO DAILY 04/14/19 06/15/19 History lancets 30 gauge ea 04/19/19 04/19/19 History insulin aspart U-100 100 unit/mL See Rx Instructions SUBCUT 04/21/19 06/15/19 Rx (3 mL) subcutaneous pen .COMPLEX #15 ml lactulose 10 gram/15 mL oral 30 ml PO DIRECTED PRN #[id number] ml 05/17/19 06/15/19 Rx solution escitalopram oxalate 10 mg PO HS 06/15/19 06/15/19 History folic acid 1 mg PO DAILY 06/15/19 06/15/19 History nadolol 20 mg PO DAILY 06/15/19 06/15/19 History pantoprazole 40 mg PO BIDM 06/15/19 06/15/19 History ropinirole 0.5 mg PO HS 06/15/19 06/15/19 History Allergies Allergy/AdvReac Type Severity Reaction Status Date / Time methyl salicylate Allergy Mild RASH Verified 06/15/19 10:25 nickel Allergy Mild RASH Verified 06/15/19 10:25 zinc Allergy Mild RASH Verified 06/15/19 10:25 diphenhydramine AdvReac Intermediate BURNING Verified 06/15/19 10:25 EYES,DIZZY,BLISTERS Past Med/Surg History Medical History (Updated 06/17/19 @ 22:31 by Henrietta Up DO) Altered mental status Anemia (Chronic) Anxiety Cataracts, bilateral (Acute) Chest pain (Acute) Cholelithiasis (Acute) Chronic back pain Cirrhosis Cirrhosis COPD (chronic obstructive pulmonary disease) (Chronic) Depression Depression with anxiety (Acute) Diabetes (Chronic) Diabetes mellitus, type 2 Edema (Acute) Edema of lower extremity (Acute) Hemochromatosis (Chronic) HTN (hypertension) (Chronic) Hyperglycemia (Acute) Hyperlipidemia Hyperlipidemia (Chronic) Hypomagnesemia (Acute) Increased ammonia level (Chronic) Kidney stones Liver cancer Migraine Neuropathy Osteoarthritis Pancytopenia (Acute) Pneumonia (Resolved) Psychological disorder (Acute) Right-sided chest wall pain (Acute) Sepsis (Acute) Shortness of breath on exertion Skin cancer of face Sleep apnea cpap Syncope (Acute 11/16/13) Syncope (Acute) 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, with long-term current use of insulin (Chronic) UTI (urinary tract infection) (Acute) Surgical History History of arthroscopy of left shoulder History of arthroscopy of right knee History of bilateral cataract extraction History of carpal tunnel surgery of left wrist History of lithotripsy History of Mohs micrographic surgery for skin cancer History of tonsillectomy and adenoidectomy History of tooth extraction all teeth removed History of total abdominal hysterectomy and bilateral salpingo-oophorectomy Family History Brother Family history of diabetes mellitus Sister Family history of diabetes mellitus Other Family history non-contributory No family history of adverse response to anesthesia Social History Preferred Language: [place] Communication Ability: Impaired Visual Impairment: No Limitations Quality Control Checker Required: No Beliefs That Will Affect Care: None Current Living Situation: Family Current Living Situation Comment: lives with son Other Information That Helps Us Care for You: No Feels Safe at Home: Yes Safety Concerns: Feels Safe At This Time Smoking Status: Former smoker Do You Dip or Chew Tobacco: No ; Second Hand Exposure: No ; Tobacco Cessation Education Requested by Patient: No Hx Alcohol Use: No Hx Substance Use: No Review of Systems See HPI for pertinent positives & negatives. and A total of 10 systems reviewed and were otherwise negative Physical Exam Vital Signs Vital Signs - 24 hr 06/15/19 09:38 06/15/19 10:00 06/15/19 10:18 Temperature 36.7 C Temperature Source Oral Pulse Rate 59 L 57 L 57 L Pulse Rate [Apical] Pulse Rate from SpO2 Sensor 57 L 57 L Pulse Rhythm Regular Pulse Strength Normal Respiratory Rate 18 14 15 Respiratory Effort / Characteristics Non-Labored Spontaneous Respiratory Depth Normal Respiratory Pattern Regular Blood Pressure 152/65 H 168/60 H Blood Pressure [Right Arm] Blood Pressure Mean 94 78 Blood Pressure Mean [Right Arm] Blood Pressure Position Sitting Pulse Oximetry 100 100 100 Oxygen Delivery Method Room Air Sepsis Recent Fever Within 48 Hours No Sepsis Action Taken by Nursing No Action Required 06/15/19 10:20 06/15/19 10:30 06/15/19 10:31 Temperature Temperature Source Pulse Rate 59 L 58 L 61 Pulse Rate [Apical] Pulse Rate from SpO2 Sensor 61 57 L 58 L Pulse Rhythm Pulse Strength Respiratory Rate 16 17 13 Respiratory Effort / Characteristics Respiratory Depth Respiratory Pattern Blood Pressure 159/66 H Blood Pressure [Right Arm] Blood Pressure Mean 76 Blood Pressure Mean [Right Arm] Blood Pressure Position Pulse Oximetry 100 100 100 Oxygen Delivery Method Sepsis Recent Fever Within 48 Hours Sepsis Action Taken by Nursing 06/15/19 10:40 06/15/19 11:44 06/15/19 13:02 Temperature Temperature Source Pulse Rate 58 L Pulse Rate [Apical] 58 L 56 L Pulse Rate from SpO2 Sensor 58 L Pulse Rhythm Pulse Strength Respiratory Rate 20 18 18 Respiratory Effort / Characteristics Respiratory Depth Respiratory Pattern Blood Pressure Blood Pressure [Right Arm] 167/60 H 166/66 H Blood Pressure Mean Blood Pressure Mean [Right Arm] 95 99 Blood Pressure Position Pulse Oximetry 100 94 97 Oxygen Delivery Method Room Air Room Air Sepsis Recent Fever Within 48 Hours Sepsis Action Taken by Nursing GENERAL: alert, chronically ill appearing, well nourished, no distress, non- toxic EYE EXAM: normal conjunctiva, PERRL and EOM's grossly intact OROPHARYNX: no exudate, no erythema, lips, buccal mucosa, and tongue normal and mucous membranes are moist NECK: supple, no nuchal rigidity, no adenopathy, non-tender LUNGS: Clear to auscultation. Normal chest wall mechanics, no w/r/r HEART: no murmurs, S1 normal and S2 normal ABDOMEN: abdomen soft, non-tender, normo-active bowel sounds, no masses, no rebound or guarding. No protuberance consistent with severe ascites. BACK: Back is symmetrical on inspection and there is no deformity, no midline tenderness, no CVA tenderness. SKIN: no rashes and no bruising UPPER EXTREMITIES: upper extremities are grossly normal. FROM, nml pulses b/l. LOWER EXTREMITIES: No pitting edema. FROM, nml pulses b/l. NEURO EXAM: Awake, alert, confused, cranial nerves II-XII grossly intact, normal speech, no gross weakness of arms, no gross weakness of legs. Course Course 1031: The patient was evaluated in room C3. A complete history and physical exam was performed. 1209: I reevaluated the patient and she has no change in mental status. I discussed the patient's test results and treatment plan with her son. He verbally agrees and understands. 1319: I discussed the patient's case with Dr. [place] [facility] [place] [facility] He will evaluate the patient for further management. Administered Medications Artificial Tears (Artificial Tears) 1 drops OPB DAILY MELVI Stop: 07/15/19 15:29 Last Admin: 06/17/19 08:41 Dose: 1 drops Documented by: [id number] Admin: 06/16/19 08:46 Dose: 1 drops Documented by: [id number] Admin: 06/15/19 17:09 Dose: 1 drops Documented by: [id number] Atorvastatin Calcium (Lipitor) 20 mg PO HS MELVI Stop: 07/15/19 20:59 Last Admin: 06/17/19 20:17 Dose: 20 mg Documented by: [id number] Admin: 06/16/19 21:29 Dose: 20 mg Documented by: [id number] Admin: 06/15/19 21:52 Dose: 20 mg Documented by: [id number] Docusate Sodium (Colace) 200 mg PO DAILY MELVI Stop: 07/16/19 08:59 Last Admin: 06/17/19 08:42 Dose: 200 mg Documented by: [id number] Admin: 06/16/19 08:45 Dose: 200 mg Documented by: [id number] Escitalopram Oxalate (Lexapro Tab) 10 mg PO HS MELVI Stop: 07/15/19 20:59 Last Admin: 06/17/19 20:17 Dose: 10 mg Documented by: [id number] Admin: 06/16/19 21:29 Dose: 10 mg Documented by: [id number] Admin: 06/15/19 21:52 Dose: 10 mg Documented by: [id number] Ferrous Sulfate (Feosol) 325 mg PO BIDM MELVI Stop: 07/15/19 16:59 Last Admin: 06/17/19 17:15 Dose: 325 mg Documented by: [id number] Admin: 06/17/19 08:41 Dose: 325 mg Documented by: [id number] Admin: 06/16/19 17:35 Dose: 325 mg Documented by: [id number] Admin: 06/16/19 08:45 Dose: 325 mg Documented by: [id number] Admin: 06/15/19 17:07 Dose: 325 mg Documented by: [id number] Folic Acid (Folvite) 1 mg PO DAILY MELVI Stop: 07/16/19 08:59 Last Admin: 06/17/19 08:41 Dose: 1 mg Documented by: [id number] Admin: 06/16/19 08:44 Dose: 1 mg Documented by: [id number] Gabapentin (Neurontin) 100 mg PO BID MELVI Stop: 07/15/19 20:59 Last Admin: 06/17/19 20:17 Dose: 100 mg Documented by: [id number] Admin: 06/17/19 08:41 Dose: 100 mg Documented by: [id number] Admin: 06/16/19 21:29 Dose: 100 mg Documented by: [id number] Admin: 06/16/19 08:45 Dose: 100 mg Documented by: [id number] Admin: 06/15/19 21:52 Dose: 100 mg Documented by: [id number] Insulin Aspart (Novolog Flexpen) 0 units SC ACHS MELVI Stop: 07/16/19 11:29 Last Admin: 06/17/19 20:26 Dose: Not Given Documented by: [id number] Cosigned by: [id number] Admin: 06/17/19 17:13 Dose: 15 units Documented by: [id number] Cosigned by: [id number] Admin: 06/17/19 11:57 Dose: 23 units Documented by: [id number] Cosigned by: [id number] Admin: 06/17/19 08:39 Dose: 8 units Documented by: [id number] Cosigned by: [id number] Admin: 06/16/19 21:32 Dose: 9 units Documented by: [id number] Cosigned by: [id number] Admin: 06/16/19 17:37 Dose: 8 units Documented by: [id number] Cosigned by: [id number] Admin: 06/16/19 12:14 Dose: 11 units Documented by: [id number] Cosigned by: [id number] Insulin Glargine (Lantus Solostar Pen) 0 units SQ BID [facility]; Protocol Stop: 07/16/19 20:59 Last Admin: 06/17/19 20:27 Dose: 30 units Documented by: [id number] Cosigned by: [id number] Ioversol (Optiray 320 100ml) 95 ml IV ONCE PRN PRN Reason: Interaction Checking Stop: 06/20/19 14:18 Last Admin: 06/16/19 14:20 Dose: 95 ml Documented by: [id number] Lactulose (Chronulac) 20 gm PO BID [facility] Stop: 07/16/19 20:59 Last Admin: 06/17/19 20:17 Dose: 20 gm Documented by: [id number] Admin: 06/17/19 08:40 Dose: 20 gm Documented by: [id number] Admin: 06/16/19 21:29 Dose: 20 gm Documented by: [id number] Magnesium Oxide (Mag-Ox) 400 mg PO DAILY [facility] Stop: 07/16/19 08:59 Last Admin: 06/17/19 08:41 Dose: 400 mg Documented by: [id number] Admin: 06/16/19 08:46 Dose: 400 mg Documented by: [id number] Nadolol (Corgard) 20 mg PO DAILY [facility] Stop: 07/16/19 08:59 Last Admin: 06/17/19 08:41 Dose: 20 mg Documented by: [id number] Admin: 06/16/19 08:46 Dose: 20 mg Documented by: [id number] Pantoprazole Sodium (Protonix) 40 mg PO BIDM [facility] Stop: 07/15/19 16:59 Last Admin: 06/17/19 17:15 Dose: 40 mg Documented by: [id number] Admin: 06/17/19 08:40 Dose: 40 mg Documented by: [id number] Admin: 06/16/19 17:35 Dose: 40 mg Documented by: [id number] Admin: 06/16/19 08:45 Dose: 40 mg Documented by: [id number] Admin: 06/15/19 17:07 Dose: 40 mg Documented by: [id number] Rifaximin (Xifaxan) 550 mg PO BID [facility] Stop: 07/15/19 20:59 Last Admin: 06/17/19 20:17 Dose: 550 mg Documented by: [id number] Admin: 06/17/19 08:40 Dose: 550 mg Documented by: [id number] Admin: 06/16/19 21:29 Dose: 550 mg Documented by: [id number] Admin: 06/16/19 08:45 Dose: 550 mg Documented by: [id number] Admin: 06/15/19 21:53 Dose: 550 mg Documented by: [id number] Ropinirole HCl (Requip) 0.5 mg PO HS MELVI Stop: 07/15/19 20:59 Last Admin: 06/17/19 20:17 Dose: 0.5 mg Documented by: [id number] Admin: 06/16/19 21:29 Dose: 0.5 mg Documented by: [id number] Admin: 06/15/19 21:53 Dose: 0.5 mg Documented by: [id number] Discontinued Medications Sodium Chloride (Nss 1000ml) 1,000 mls @ 125 mls/hr IV .Q8H MELVI Stop: 07/15/19 10:44 Last Infusion: 06/15/19 15:26 Dose: 0 mls/hr Documented by: [id number] Admin: 06/15/19 11:15 Dose: 125 mls/hr Documented by: [id number] Sodium Chloride (Nss 1000ml) 1,000 mls @ 65 mls/hr IV .[id number] MELVI Stop: 07/15/19 13:44 Last Infusion: 06/16/19 17:43 Dose: 0 mls/hr Documented by: [id number] Admin: 06/16/19 04:46 Dose: 65 mls/hr Documented by: [id number] Infusion: 06/16/19 04:46 Dose: 65 mls/hr Documented by: [id number] Admin: 06/15/19 15:40 Dose: 65 mls/hr Documented by: [id number] Sodium Chloride (1/2 Nss) 1,000 mls @ 80 mls/hr IV .[id number] MELVI Stop: 06/17/19 06:14 Last Infusion: 06/17/19 06:18 Dose: 0 mls/hr Documented by: [id number] Admin: 06/16/19 17:40 Dose: 80 mls/hr Documented by: [id number] Insulin Human Regular 4 units/ (Syringe) 4 mls @ 0 mls/min IV 1415 ONE Stop: 06/17/19 14:16 Last Admin: 06/17/19 14:35 Dose: 4 mls/min Documented by: [id number] Cosigned by: [id number] Insulin Aspart (Novolog Flexpen) 0 units SQ ACHS MELVI Stop: 07/15/19 16:29 Last Admin: 06/16/19 12:26 Dose: Not Given Documented by: [id number] Cosigned by: [id number] Admin: 06/16/19 08:42 Dose: 6 units Documented by: [id number] Cosigned by: [id number] Admin: 06/15/19 21:50 Dose: 3 units Documented by: [id number] Cosigned by: [id number] Admin: 06/15/19 17:07 Dose: 9 units Documented by: [id number] Cosigned by: [id number] Insulin Glargine (Lantus Solostar Pen) 20 units SQ BID MELVI Stop: 07/15/19 20:59 Last Admin: 06/16/19 08:43 Dose: 20 units Documented by: [id number] Cosigned by: [id number] Admin: 06/15/19 21:49 Dose: 20 units Documented by: [id number] Cosigned by: [id number] Insulin Glargine (Lantus Solostar Pen) 30 units SQ BID MELVI Stop: 07/16/19 20:59 Last Admin: 06/17/19 08:38 Dose: 30 units Documented by: [id number] Cosigned by: [id number] Admin: 06/16/19 21:31 Dose: 30 units Documented by: [id number] Cosigned by: [id number] Lactulose (Chronulac) 20 gm PO QID PRN PRN Reason: ELEVATED AMMONUIA Stop: 07/15/19 15:22 Last Admin: 06/15/19 21:51 Dose: 20 gm Documented by: [id number] Lactulose (Chronulac) 20 gm PO QID MELVI Stop: 07/15/19 21:59 Last Admin: 06/16/19 17:43 Dose: Not Given Documented by: [id number] Admin: 06/16/19 12:15 Dose: 20 gm Documented by: [id number] Admin: 06/16/19 08:44 Dose: 20 gm Documented by: [id number] Admin: 06/15/19 22:35 Dose: Not Given Documented by: [id number] Potassium Chloride (Klor-Con M20) 40 meq PO NOW STA Stop: 06/17/19 13:49 Last Admin: 06/17/19 14:34 Dose: 40 meq Documented by: [id number] Medical Decision Making Differential Diagnosis Differential diagnoses includes but is not limited to toxic, metabolic, infectious, traumatic, cardiac, neurologic, hematologic, psychiatric and inflammatory etiologies. Medical Records Attestation: I reviewed the patient's medical records. Home Medications Current Medication List: was personally reviewed by me Laboratory Data Attestation: I reviewed the patient's lab results. Result diagrams: 06/17/19 07:34 06/17/19 07:34 Lab Results 06/15/19 06/15/19 06/15/19 Range/Units 09:55 09:55 09:55 WBC 3.40 L (4.8-10.8) K/uL RBC 2.93 L (4.2-5.4) M/uL Hgb 10.5 L (12.0-16.0) g/dL Hct 29.9 L (37-47) % MCV 102.0 H (80-100) fL MCH 35.8 H (25-34) pg MCHC 35.1 (32-36) g/dL RDW Std Deviation 52.7 H (36.4-46.3) fL RDW Coeff of Chloe 14.1 (11.5-14.5) % Plt Count 53 L (130-400) K/uL MPV 11.3 H (7.4-10.4) fL Immature Gran % (Auto) 0.0 % Neut % (Auto) 60.0 % Lymph % (Auto) 28.8 % Tate % (Auto) 7.4 % Eos % (Auto) 3.5 % Baso % (Auto) 0.3 % Immature Gran # (Auto) 0.00 (0.00-0.02) K/uL Neut # (Auto) 2.04 (1.4-6.5) K/uL Lymph # (Auto) 0.98 L (1.2-3.4) K/uL Tate # (Auto) 0.25 (0.11-0.59) K/uL Eos # (Auto) 0.12 (0-0.5) K/uL Baso # (Auto) 0.01 (0-0.2) K/uL RBC Morphology Unremarkable APTT 28.8 (21.0-31.0) Seconds PTT Ratio 1.1 Sodium 143 (136-145) mmol/L Potassium 3.9 (3.5-5.1) mmol/L Chloride 110 H (98-107) mmol/L Carbon Dioxide 29 (21-32) mmol/L Anion Gap 4.0 (3-11) BUN 14 (7-18) mg/dl Creatinine 0.68 (0.6-1.2) mg/dl Est Cr Clr Drug Dosing 79.0 ml/min Est GFR ( Amer) 103.4 Est GFR (Non-Af Amer) 89.2 BUN/Creatinine Ratio 20.1 H (10-20) Glucose 239 H (70-99) mg/dl Lactate (0.4-2.0) mmol/L Calcium 8.2 L (8.5-10.1) mg/dl Total Bilirubin 1.5 H (0.2-1) mg/dl AST 60 H (15-37) U/L ALT 39 (12-78) U/L Alkaline Phosphatase 107 (45-117) U/L Ammonia (11-32) umol/L Troponin I (0-0.045) ng/ml Total Protein 6.2 L (6.4-8.2) gm/dl Albumin 2.4 L (3.4-5.0) gm/dl Globulin 3.8 (2.5-4.0) gm/dl Albumin/Globulin Ratio 0.6 L (0.9-2) Procalcitonin (0-0.5) ng/ml Specimen Hemolysis Urine Color Urine Appearance (Clear) Urine pH (4.5-7.5) Ur Specific [place] (1.000-1.030) Urine Protein (Negative) Urine Glucose (UA) (Negative) Urine Ketones (Negative) Urine Blood (Negative) Urine Nitrite (Negative) Urine Bilirubin (Negative) Urine Urobilinogen (Negative) Ur Leukocyte Esterase (Negative) Urine WBC (Auto) (0-5) /hpf Urine RBC (Auto) (0-4) /hpf U Hyaline Cast (Auto) (0-5) /lpf U Epithel Cells (Auto) (0-5) /lpf Urine Bacteria (Auto) (Negative) 06/15/19 06/15/19 06/15/19 Range/Units 09:55 09:55 10:50 WBC (4.8-10.8) K/uL RBC (4.2-5.4) M/uL Hgb (12.0-16.0) g/dL Hct (37-47) % MCV (80-100) fL MCH (25-34) pg MCHC (32-36) g/dL RDW Std Deviation (36.4-46.3) fL RDW Coeff of Chloe (11.5-14.5) % Plt Count (130-400) K/uL MPV (7.4-10.4) fL Immature Gran % (Auto) % Neut % (Auto) % Lymph % (Auto) % Tate % (Auto) % Eos % (Auto) % Baso % (Auto) % Immature Gran # (Auto) (0.00-0.02) K/uL Neut # (Auto) (1.4-6.5) K/uL Lymph # (Auto) (1.2-3.4) K/uL Tate # (Auto) (0.11-0.59) K/uL Eos # (Auto) (0-0.5) K/uL Baso # (Auto) (0-0.2) K/uL RBC Morphology APTT (21.0-31.0) Seconds PTT Ratio Sodium (136-145) mmol/L Potassium (3.5-5.1) mmol/L Chloride (98-107) mmol/L Carbon Dioxide (21-32) mmol/L Anion Gap (3-11) BUN (7-18) mg/dl Creatinine (0.6-1.2) mg/dl Est Cr Clr Drug Dosing ml/min Est GFR ( Amer) Est GFR (Non-Af Amer) BUN/Creatinine Ratio (10-20) Glucose (70-99) mg/dl Lactate 1.7 (0.4-2.0) mmol/L Calcium (8.5-10.1) mg/dl Total Bilirubin (0.2-1) mg/dl AST (15-37) U/L ALT (12-78) U/L Alkaline Phosphatase (45-117) U/L Ammonia 101.0 H (11-32) umol/L Troponin I (0-0.045) ng/ml Total Protein (6.4-8.2) gm/dl Albumin (3.4-5.0) gm/dl Globulin (2.5-4.0) gm/dl Albumin/Globulin Ratio (0.9-2) Procalcitonin < 0.05 (0-0.5) ng/ml Specimen Hemolysis Urine Color Urine Appearance (Clear) Urine pH (4.5-7.5) Ur Specific [place] (1.000-1.030) Urine Protein (Negative) Urine Glucose (UA) (Negative) Urine Ketones (Negative) Urine Blood (Negative) Urine Nitrite (Negative) Urine Bilirubin (Negative) Urine Urobilinogen (Negative) Ur Leukocyte Esterase (Negative) Urine WBC (Auto) (0-5) /hpf Urine RBC (Auto) (0-4) /hpf U Hyaline Cast (Auto) (0-5) /lpf U Epithel Cells (Auto) (0-5) /lpf Urine Bacteria (Auto) (Negative) 06/15/19 06/15/19 Range/Units 11:55 12:34 WBC (4.8-10.8) K/uL RBC (4.2-5.4) M/uL Hgb (12.0-16.0) g/dL Hct (37-47) % MCV (80-100) fL MCH (25-34) pg MCHC (32-36) g/dL RDW Std Deviation (36.4-46.3) fL RDW Coeff of Chloe (11.5-14.5) % Plt Count (130-400) K/uL MPV (7.4-10.4) fL Immature Gran % (Auto) % Neut % (Auto) % Lymph % (Auto) % Tate % (Auto) % Eos % (Auto) % Baso % (Auto) % Immature Gran # (Auto) (0.00-0.02) K/uL Neut # (Auto) (1.4-6.5) K/uL Lymph # (Auto) (1.2-3.4) K/uL Tate # (Auto) (0.11-0.59) K/uL Eos # (Auto) (0-0.5) K/uL Baso # (Auto) (0-0.2) K/uL RBC Morphology APTT (21.0-31.0) Seconds PTT Ratio Sodium (136-145) mmol/L Potassium (3.5-5.1) mmol/L Chloride (98-107) mmol/L Carbon Dioxide (21-32) mmol/L Anion Gap (3-11) BUN (7-18) mg/dl Creatinine (0.6-1.2) mg/dl Est Cr Clr Drug Dosing ml/min Est GFR ( Amer) Est GFR (Non-Af Amer) BUN/Creatinine Ratio (10-20) Glucose (70-99) mg/dl Lactate (0.4-2.0) mmol/L Calcium (8.5-10.1) mg/dl Total Bilirubin (0.2-1) mg/dl AST (15-37) U/L ALT (12-78) U/L Alkaline Phosphatase (45-117) U/L Ammonia (11-32) umol/L Troponin I < 0.015 (0-0.045) ng/ml Total Protein (6.4-8.2) gm/dl Albumin (3.4-5.0) gm/dl Globulin (2.5-4.0) gm/dl Albumin/Globulin Ratio (0.9-2) Procalcitonin (0-0.5) ng/ml Specimen Hemolysis Urine Color Yellow Urine Appearance Clear (Clear) Urine pH 8.5 H (4.5-7.5) Ur Specific [place] 1.007 (1.000-1.030) Urine Protein Negative (Negative) Urine Glucose (UA) Negative (Negative) Urine Ketones Negative (Negative) Urine Blood 2+ H (Negative) Urine Nitrite Negative (Negative) Urine Bilirubin Negative (Negative) Urine Urobilinogen Negative (Negative) Ur Leukocyte Esterase Trace H (Negative) Urine WBC (Auto) 1-5 (0-5) /hpf Urine RBC (Auto) 5-10 H (0-4) /hpf U Hyaline Cast (Auto) 0 (0-5) /lpf U Epithel Cells (Auto) 0-5 (0-5) /lpf Urine Bacteria (Auto) Negative (Negative) Imaging Data Radiologist's Impression: Radiology results as stated below per my review and the radiologist's interpretation: XR abdomen 2V w PA chest CLINICAL HISTORY: Abdominal pain. History of hepatic carcinoma COMPARISON STUDY: No previous studies for comparison. FINDINGS: Supine and decubitus views the abdomen are provided for interpretation. Erect chest reveals mild interstitial thickening/edema. There is no lobar consolidation. There is no pneumoperitoneum. Views the abdomen reveal no abnormally dilated loops of large or small bowel. There are no transition zones indicate bowel obstruction. There are right upper quadrant calcifications consistent with gallstones. IMPRESSION: 1. No evidence of bowel obstruction. No evidence of free air 2. Cholelithiasis 3. Cardiomegaly and interstitial edema Electronically signed by: Cristhian Frost M.D. 06/15/2019 11:[address] head/brain wo con CLINICAL HISTORY: Acute change in mental status COMPARISON STUDY: 04/19/2019 TECHNIQUE: Axial CT of the brain is performed from the vertex to the skull base. IV contrast was not administered for this examination. A dose lowering technique was utilized adhering to the principles of ALARA. CT DOSE: 537.48 mGy.cm FINDINGS: No intra or extra-axial mass lesions are visualized. There is no CT evidence of acute cortical infarction. There is no evidence of midline shift. There is no acute hemorrhage. No calvarial fractures are visualized. There are patchy white matter hypodensities likely on a small vessel basis. There is no evidence of pathologic ventricular dilatation. There is a suspected partially empty sella There is no evidence of acute sinusitis IMPRESSION: No acute intracranial findings Electronically signed by: Cristhian Frost M.D. 06/15/2019 11:11 AM ECG Data Attestation: I personally reviewed and interpreted this ECG as follows: Indication: + chest pain Rate (beats per minute): 59 Rhythm: + sinus bradycardia ECG [place]: + Normal ECG ST segments: + T-wave inversions (V3-V6) ECG Findings: + Other (normal intervals) Comparison ECG Date: from (04/14/2019) Change: the following changes noted (TWI are new) Blood Pressure Blood Pressure Findings: Elevated blood pressure Blood Pressure Disposition: further management by hospitalist MDM Narrative Pt here with AMS which son felt was consistent with prior episodes of elevated ammonia. Her labs did reveal elevated ammonia, no other evidence of acute infectious etiology. No obvious other CHART SNATCHER pathology noted, no focal neuro de ficit and CT head reassuring. Hematuria noted, however, no other evidence of UTI, possibly traumatic from cath vs related to thrombocytopenia. I do not suspect SBP or other acute GI pathology. Anemia noted, however stable compared to prior. Thrombocytopenia stable compared to prior also. No renal dysfunction. VS stable throughout and pt afebrile. No evidence of bacteremia/sepsis. Imaging reassuring and given elevated ammonia in a known cirrhotic, likely AMS from hepatic encephalopathy. Slightly different EKG noted compared to prior, however trop negative. Unclear etiology despite questionable complaint of chest pain. I do not suspect ACS, tamponade, effusion, dissection. Son verbalized understanding of all results and was in agreement with plan. Case discussed with hospitalist. Impression & Plan Altered mental status, Chest pain, Hepatic encephalopathy, Pancytopenia Discharge Plan Visit Data *Final* Discharge Date/Time: 06/15/19 14:21 Chief Complaint: Illness Stated Complaint: not feeling well, confused ED Provider: Henrietta Up Discharge Problem: Altered mental status, Chest pain, Hepatic encephalopathy, Pancytopenia Patient Disposition: Admitted As Inpatient Discharge Instructions Interventions: ED Discharge Assessment Last Done: 06/15/19 14:21 Discharge Problem: Altered mental status Qualifiers: Altered mental status type: unspecified Qualified Code(s): R41.82 - Altered mental status, unspecified Chest pain Qualifiers: Chest pain type: unspecified Qualified Code(s): R07.9 - Chest pain, unspecified The scribe's documentation has been prepared under my direction and personally r eviewed by me in its entirety. I confirm that the note above accurately reflects all work, treatment, procedures, and medical decision making performed by me.
[2019-06-15] MEDS ORDERED: POLYETHYLENE (MIRALAX) 17 GM PACK PO PRN (13:37)
[2019-06-15] MEDS ORDERED: ONDANSETRON INJ 2 MG/ML 2 ML VIAL IV PRN (13:37)
[2019-06-15] MEDS ORDERED: ALUMINUM/MAGNESIUM SUSP 30 ML UDC PO PRN (13:37)
[2019-06-15] MEDS ORDERED: ZOLPIDEM TARTRATE 5 MG TAB PO PRN (13:37)
[2019-06-15] MEDS ORDERED: MAGNESIUM HYDROXIDE SUSP 30 ML UDC PO PRN (13:37)
--- NOTE | 2019-06-15 13:37 | History & Physical Report ---
Date of Service June 15, 2019 Assessment & Plan (1) Encephalopathy, hepatic: Admit patient to telemetry Rule out other causes of encephalopathy like infection/intracranial pathology CT head was negative, UA showed no infection in the urine Will check TSH Start patient on lactulose oral 30 g every 6 hours If patient had problems swallowing then well to lactulose enema every 6 hours. Start patient on rifaximin 550 mg p.o. 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, with long-term current use of insulin: Continue her sliding scale insulin Decrease her Lantus dose from 40 mg twice a day to 20 mg twice a day as she is not eating as she should (4) Hyperlipidemia: Continue Lipitor (5) Depression with anxiety: Continue Celexa same dose (6) Pancytopenia: Since platelets are 50,000, will hold aspirin Also hold pharmacologic DVT prophylaxis Continue only on SCD boot Monitor cell count daily (7) Chest pain: Review of system is not reliable but when asked about chest pain patient said yes In the setting of abnormal EKG, nonspecific ST-T wave changes We will at least trend the troponin and when patient become more oriented will inquire more about the chest pain History of Present Illness Chief Complaint: Change in mental status Primary Care Provider: Laila Thakkar MD 68-year-old female with past medical history of cirrhosis, nonalcoholic, hyper ammonia, COPD, diabetes mellitus type 2 insulin requiring, GERD, restless leg syndrome, dyslipidemia and depression. Patient liver status has been compensated until her presentation to the ED today. As per son she started being confused and slightly lethargic 2 days prior to admission. Her son reported that she complained of generalized abdominal pain. In ED she only complained of chest pain when she was asked about the review of system but she had no other complaint, review of system is suboptimal due to the change of mental status. Patient ammonia level was found to be 101 patient will be admitted for further management. Allergies Allergy/AdvReac Type Severity Reaction Status Date / Time methyl salicylate Allergy Mild RASH Verified 06/15/19 10:25 nickel Allergy Mild RASH Verified 06/15/19 10:25 zinc Allergy Mild RASH Verified 06/15/19 10:25 diphenhydramine AdvReac Intermediate BURNING Verified 06/15/19 10:25 EYES,DIZZY,BLISTERS Home Medications Home Medications Medication Instructions Recorded Confirmed Type aspirin [Aspirin Low Dose] 81 mg PO QAM 04/13/18 06/15/19 History cholecalciferol (vitamin D3) 2,000 unit PO QAM 04/13/18 06/15/19 History atorvastatin 20 mg tablet 20 mg PO HS #90 tab 01/31/19 06/15/19 Rx furosemide 20 mg tablet 40 - 60 mg PO DAILY PRN #90 tab 01/31/19 06/15/19 Rx rifaximin 550 mg tablet 550 mg PO BID #60 tab 01/31/19 06/15/19 Rx docusate sodium 100 mg capsule 200 mg PO DAILY #60 cap 02/08/19 06/15/19 Rx gabapentin 300 mg capsule 300 mg PO BID #60 cap 03/01/19 06/15/19 Rx carboxymethylcellulose sodium 1 drp OPB DAILY 04/14/19 06/15/19 History [Refresh Liquigel] ferrous sulfate 325 mg PO BIDM 04/14/19 06/15/19 History insulin glargine [Basaglar KwikPen 40 unit SUBCUT BID 04/14/19 06/15/19 History U-100 Insulin] magnesium oxide 400 mg PO DAILY 04/14/19 06/15/19 History lancets 30 gauge ea 04/19/19 04/19/19 History insulin aspart U-100 100 unit/mL See Rx Instructions SUBCUT 04/21/19 06/15/19 Rx (3 mL) subcutaneous pen .COMPLEX #15 ml lactulose 10 gram/15 mL oral 30 ml PO DIRECTED PRN #1892 ml 05/17/19 06/15/19 Rx solution escitalopram oxalate 10 mg PO HS 06/15/19 06/15/19 History folic acid 1 mg PO DAILY 06/15/19 06/15/19 History nadolol 20 mg PO DAILY 06/15/19 06/15/19 History pantoprazole 40 mg PO BIDM 06/15/19 06/15/19 History ropinirole 0.5 mg PO HS 06/15/19 06/15/19 History Past Med/Surg History Medical History (Updated 06/15/19 @ 13:47 by Lina Martinez) Altered mental status Anemia (Chronic) Anxiety Cataracts, bilateral (Acute) Chest pain (Acute) Cholelithiasis (Acute) Chronic back pain Cirrhosis Cirrhosis COPD (chronic obstructive pulmonary disease) (Chronic) Depression Depression with anxiety (Acute) Diabetes (Chronic) Diabetes mellitus, type 2 Edema (Acute) Edema of lower extremity (Acute) Hemochromatosis (Chronic) HTN (hypertension) (Chronic) Hyperglycemia (Acute) Hyperlipidemia Hyperlipidemia (Chronic) Hypomagnesemia (Acute) Increased ammonia level (Chronic) Kidney stones Liver cancer Migraine Neuropathy Osteoarthritis Pancytopenia (Acute) Pneumonia (Resolved) Psychological disorder (Acute) Right-sided chest wall pain (Acute) Sepsis (Acute) Shortness of breath on exertion Skin cancer of face Sleep apnea cpap Syncope (Acute 11/16/13) Syncope (Acute) 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, with long-term current use of insulin (Chronic) UTI (urinary tract infection) (Acute) Surgical History History of arthroscopy of left shoulder History of arthroscopy of right knee History of bilateral cataract extraction History of carpal tunnel surgery of left wrist History of lithotripsy History of Mohs micrographic surgery for skin cancer History of tonsillectomy and adenoidectomy History of tooth extraction all teeth removed History of total abdominal hysterectomy and bilateral salpingo-oophorectomy Social History Preferred Language: Malian Communication Ability: Effective Visual Impairment: No Limitations Pediatric Dentist Required: No Beliefs That Will Affect Care: None Current Living Situation: Family Current Living Situation Comment: lives with son Feels Safe at Home: Yes Smoking Status: Former smoker Second Hand Exposure: No ; Hx Alcohol Use: No Hx Substance Use: No Review of Systems Review of Systems: Review of system is unobtainable due to her mental status Physical Exam Physical Exam: Physical examination General patient appears to be comfortable, except for her confusion, HEENT: Atraumatic , normocephalic /minimal jaundice /no pallor /anicteric /no dry mucous membrane /normal external ear inspection Neck: Supple /no swelling /central trach Heart: S1/S2 normal/regular rate and rhythm/no gallop /no rub /no murmur Lungs: Clear to auscultation bilaterally/normal chest with expansion/no rhonchi/no rales/no wheezing/no use of accessory muscles of respiration Abdomen: Soft/nontender, slightly distended, no pulsatile mass. Musculoskeletal: No swelling/no edema/no tenderness/normal range of motion Neuro exam: Slightly lethargic, slightly confused, but able to follow simple commands and move all extremities, cranial nerves II through XII appear to be intact/sensation intact/moves all extremities/no abnormal movements Psychiatric evaluation: Unable to evaluate Skin: No rash on exposed skin area/no erythema Extremity: Normal pulse/no pitting edema/no clubbing or cyanosis Results & Data Vital Signs (Past 12 Hours) Vital Signs Temp Pulse Pulse Resp BP BP Pulse Ox 06/15/19 13:02 56 L 18 166/66 H 97 06/15/19 11:44 58 L 18 167/60 H 94 06/15/19 10:40 58 L 20 100 06/15/19 10:31 61 13 100 06/15/19 10:30 58 L 17 159/66 H 100 06/15/19 10:20 59 L 16 100 06/15/19 10:18 57 L 15 100 06/15/19 10:00 57 L 14 168/60 H 100 06/15/19 09:38 36.7 C 59 L 18 152/65 H 100 Code Status & VTE Plan Code Status Full code PG Care Time/CCT Total # of Minutes Spent Total Time Spent with Patient: 35 minutes total time spent is greater than 50% in coordination of care (as documented) at patient's floor/unit and/or counseling patient/family discussion of care with nursing staff
[2019-06-15] MEDS ORDERED: LACTULOSE SYRUP 20 GM/30 ML UDC PO PRN (15:23)
[2019-06-15] MEDS ORDERED: GLUCOSE 40% GEL 15 GM TUBE PO PRN (15:30)
[2019-06-15] MEDS ORDERED: GLUCAGON FOR INJ 1 MG VIAL IM PRN (15:30)
[2019-06-15] MEDS ORDERED: CARBOHYDRATES FOR HYPOGLYCEMIA PO PRN (15:30)
[2019-06-15] MEDS ORDERED: DEXTROSE 50% 50 ML SYRINGE IV PRN (15:30)
[2019-06-15] MEDS ORDERED: GLUCOSE 10 TABS/TUBE PO PRN (15:30)
[2019-06-15] MEDS: SODIUM CHLORIDE 0.9% 1000ML 1,000 ML IV SCH (15:40)
[2019-06-15] MEDS: PANTOprazole 40 MG TAB PO SCH (17:07)
[2019-06-15] MEDS: FERROUS SULFATE 325 MG TAB PO SCH (17:07)
[2019-06-15] MEDS: INSULIN ASPART 100 UNITS/ML 3 ML PEN SQ SCH ×2 (17:07→21:50)
[2019-06-15] MEDS: ARTIFICIAL TEARS OPB SCH (17:09)
[2019-06-15] MEDS: INSULIN GLARGINE SOLOSTAR 100 UNITS/ML 3 ML PEN SQ SCH (21:49)
[2019-06-15] MEDS: ATORVASTATIN 20 MG TAB PO SCH (21:52)
[2019-06-15] MEDS: ESCITALOPRAM OXALATE 10 MG TAB PO SCH (21:52)
[2019-06-15] MEDS: GABAPENTIN 100 MG CAP PO SCH (21:52)
[2019-06-15] MEDS: ROPINIROLE HCL 0.25 MG TABLET PO SCH (21:53)
[2019-06-15] MEDS: RIFAXIMIN 550 MG TABLET PO SCH (21:53)
[2019-06-15] MEDS: LACTULOSE SYRUP 20 GM/30 ML UDC PO SCH (22:35)
[2019-06-16] MEDS: SODIUM CHLORIDE 0.9% 1000ML 1,000 ML IV SCH (04:46)
[2019-06-16 06:47] LABS: Hematocrit (blood only) 28.6 % (37-47); Hemoglobin 10.2 g/dL (12.0-16.0); Mean Corpuscular Hgb Conc 35.7 g/dL (32-36); Mean Corpuscular Volume 101.1 fL (80-100); RDW Coefficient of Variation 14.3 % (11.5-14.5); RDW Standard Deviation 52.9 fL (36.4-46.3); Red Blood Count 2.83 M/uL (4.2-5.4); White Blood Count 3.42 K/uL (4.8-10.8)
[2019-06-16 06:54] LABS: Mean Platelet Volume 10.5 fL (7.4-10.4); Platelet Count 51 K/uL (130-400)
[2019-06-16 07:18] LABS: Albumin Level 2.2 gm/dl (3.4-5.0); BUN Creatinine Ratio 20.2 (10-20); Calcium 8.5 mg/dl (8.5-10.1); Creatinine Clr Calc Pharmacy 87.2 ml/min; Est GFR (African American) 107.2; Est GFR (Non-African American) 92.5; Magnesium 1.8 mg/dl (1.8-2.4); Potassium 3.6 mmol/L (3.5-5.1)
[2019-06-16 07:23] LABS: Albumin Globulin Ratio 0.7 (0.9-2); Bilirubin,Total 1.7 mg/dl (0.2-1); Globulin 3.3 gm/dl (2.5-4.0); Total Protein 5.5 gm/dl (6.4-8.2); Troponin I 0.026 ng/ml (0-0.045)
[2019-06-16] MEDS: INSULIN ASPART 100 UNITS/ML 3 ML PEN SQ SCH ×2 (08:42→12:26)
[2019-06-16] MEDS: INSULIN GLARGINE SOLOSTAR 100 UNITS/ML 3 ML PEN SQ SCH ×2 (08:43→21:31)
[2019-06-16] MEDS: LACTULOSE SYRUP 20 GM/30 ML UDC PO SCH ×4 (08:44→21:29)
[2019-06-16] MEDS: FOLIC ACID 1 MG TAB PO SCH (08:44)
[2019-06-16] MEDS: RIFAXIMIN 550 MG TABLET PO SCH ×2 (08:45→21:29)
[2019-06-16] MEDS: PANTOprazole 40 MG TAB PO SCH ×2 (08:45→17:35)
[2019-06-16] MEDS: DOCUSATE SODIUM 100 MG CAP PO SCH (08:45)
[2019-06-16] MEDS: GABAPENTIN 100 MG CAP PO SCH ×2 (08:45→21:29)
[2019-06-16] MEDS: FERROUS SULFATE 325 MG TAB PO SCH ×2 (08:45→17:35)
[2019-06-16] MEDS: NADOLOL 40 MG TAB PO SCH (08:46)
[2019-06-16] MEDS: MAGNESIUM OXIDE 400 MG TAB PO SCH (08:46)
[2019-06-16] MEDS: ARTIFICIAL TEARS OPB SCH (08:46)
[2019-06-16] MEDS: INSULIN ASPART 100 UNITS/ML 3 ML PEN SC SCH ×3 (12:14→21:32)
[2019-06-16] MEDS ORDERED: IOVERSOL 100ml IV PRN (14:19)
--- NOTE | 2019-06-16 14:42 | CT Scan Report ---
ABDOMEN AND PELVIS CT WITH IV AND ORAL CONTRAST CT DOSE: 903.88 mGycm HISTORY: Acute left lower quadrant abdominal pain with cirrhosis LLQ abd pain; cirrhosis TECHNIQUE: Multiaxial CT images of the abdomen and pelvis were performed following the IV administrat ion of 95 cc of Optiray 320 and oral contrast. A dose lowering technique was utilized adhering to th e principles of ALARA. COMPARISON STUDY: CT abdomen and pelvis 04/14/2018, 04/17/2017, abdominal MRI 07/01/2016, CT abdomen an d pelvis 05/06/2016 FINDINGS: Trace right pleural effusion. Patchy subsegmental consolidative and groundglass opacities. No pneumatosis or pneumoperitoneum. Study is mildly motion degraded. The imaged inferior cardiac yue bers are mildly enlarged. Coronary arterial calcifications are noted. Cirrhotic morphology of the liver. No intrahepatic biliary ductal dilation. Indeterminate 9 mm hypode nse lesion of the right hepatic lobe, image 7 of series 2. Mild periportal edema. Patency of the hepa tic and portal veins. Splenomegaly, 16.5 cm in length. Large upper abdominal varices include a spleno renal shunt. Recanalization of the umbilical vein. Cholelithiasis with mild gallbladder wall thickeni ng. Unremarkable adrenal glands. Mild generalized pancreatic atrophy. Trace edema about the pancreati c head and neck. Complex and simple cystic lesions of the kidneys are redemonstrated. For example, complex lesion with layering calcifications measuring 4.6 cm about the interpolar left kidney demonstrates [place] un it of 66. Nonobstructing right nephrolithiasis. Multifocal cortical scarring and parenchymal thinning of the right kidney. 7 x 5 x 7 mm calculus of the proximal right ureter is noted at the level of L2- L3. No significant associated hydronephrosis. Mild urinary bladder distention. Hysterectomy. No adnex al mass lesion. Extensive calcified plaque the abdominal aorta without aneurysm. Nonspecific mildly p rominent periaortic and periportal lymph nodes. Enlarged periportal lymph nodes measure up to 12 mm. No bowel obstruction or bowel wall thickening. Mild diffuse mesenteric edema with trace abdominal pel edna ascites. Noninflamed appendix. Mild generalized body wall edema. 12 mm calcification of the centr al canal posterior to the T7-T8 level may reflect a disc osteophyte complex versus meningioma and res ults in severe central canal stenosis. Unchanged lucent lesion at L5, 1.5 cm. IMPRESSION: 1. 7 x 5 x 7 mm calculus of the proximal right ureter is noted at the level of L2-L3 without signific ant associated obstructive uropathy. 2. Cirrhotic liver disease with stigmata of portal venous hypertension including splenomegaly with la rge upper abdominal varices. 3. Trace right pleural effusion with trace abdominal pelvic ascites and diffuse body wall edema. 4. No bowel obstruction or bowel wall thickening. 5. Bilateral complex and simple renal cysts redemonstrated. 6. Nonobstructing right nephrolithiasis. 7. Additional findings as above. Electronically signed by: Servando Nunez M.D. 06/16/2019 2:41 PM
--- NOTE | 2019-06-16 16:03 | Hospitalist Progress Note ---
Date of Service June 16, 2019 Assessment & Plan (1) Encephalopathy, hepatic: Improved clinically today. Cont rifaximin BID. Cont lactulose but can't cut dose back from QID to BID. Repeat ammonia level am. Cause/precipitant of hepatic encephalopathy? Kidney stone? Other? No evidence of any infectious process. No appreciable ascites on CT today and thus SBP highly unlikely. Cont supportive care. (2) Kidney stone on right side: CT abd/pelvis obtained today due to 2-3 weeks of abdominal pain, b/l lower quadrants. She has scant ascites - unable to obtain paracentesis to r/o SBP. However, she has a 7mm kidney stone in the proximal right ureter. This could be contributing to abdominal pain. Spoke with Dr Walsh from urology who will consult in am. Fortunately no signs of sepsis from this stone nor obstruction. The stress of the stone moving could have caused her ammonia levels to rise. 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, with long-term current use of insulin: Uncontrolled Adjust novolog correction factor Adjust novolog carb ratio Increase Lantus dose back to 30 units BID (5) Hyperlipidemia: Continue Lipitor (6) Depression with anxiety: Continue Celexa (7) Pancytopenia: 2nd to cirrhosis all 3 cell lines are low but stable relative to past cbc's recent TSH wnl no b12/folate in 2 years; will recheck in am (8) Chest pain: troponins x 3 wnl no c/o chest pain during the visit today; it was all lower quadrant abdominal pain agree EKG was not normal at presentation however will repeat her EKG in the am for stability (9) Abdominal pain: see discussion above in "kidney stone" (10) Liver [place]: [place] [facility] [place] in the last 1-2 months has 9mm nodule in the right lobe - uncertain if that is the location of cancer or not she will need [place] [facility] [place] from [place] (11) Hypernatremia: change NS to 1/2 NS for 1 additional liter then repeat BMP in am (12) DVT prophylaxis: SCDs only in light of thrombocytopenia now that patient is more awake/alert will order PT/OT evals Subjective patient more awake/alert today. she c/o bilateral lower quadrant abdominal discomfort. present for "2-3 weeks." food generally does not worsen the pain. states she hasn't had a bowel movement yet (?). no vomiting. appetite has been poor today. telemetry wnl overnight. reports that sometime in the last 1-2 months she was seen at [facility] and was told she had liver cancer. she is to have stereotactic directed chemotherapy? Review of Systems Constitutional: no fever and no chills Respiratory: no cough and no dyspnea Cardiovascular: no chest pain Gastrointestinal: as per Subjective / HPI and + abdominal pain; no nausea, no diarrhea/loose stools and no blood in stools Psychiatric: + confusion Physical Exam Constitutional: + ill appearing, + thin and + altered mental status ENMT: Mouth: + dry oral mucous membranes; no oropharynx abnormality Respiratory: normal respiratory effort, lungs clear to auscultation Cardiovascular: Rate/Rhythm: regular rate and regular rhythm Heart Sounds: normal S1 and normal S2; no murmur Vessels: posterior tibial pulses present and dorsalis pedis pulses present; no JVD Extremities: + pedal edema (trace b/l ) Gastrointestinal (Abdomen): Inspection/Auscultation: + abdomen distended (mild) and normal bowel sounds Percussion/Palpation: + abdomen tender (b/l lower quadrants, a bit worse on left ) and + splenomegaly (mild) Skin: + pallor Neurologic: Motor/Sensory: no asterixis Psychiatric: Orientation: alert, oriented to person and oriented to place; + not oriented to time Results & Data Vital Signs (Past 12 Hours) Vital Signs Temp Pulse Pulse Resp BP Pulse Ox 06/16/19 15:31 36.6 C 67 18 174/61 H 97 06/16/19 11:40 36.7 C 65 18 163/66 H 99 06/16/19 11:09 64 06/16/19 07:43 36.9 C 62 16 170/64 H 95 Laboratory Results Laboratory Results - last 24 hr 06/15/19 06/15/19 06/15/19 16:36 17:08 20:33 WBC RBC Hgb Hct MCV MCH MCHC RDW Std Deviation RDW Coeff of Chloe Plt Count MPV Sodium Potassium Chloride Carbon Dioxide Anion Gap BUN Creatinine Est Cr Clr Drug Dosing Est GFR ( Amer) Est GFR (Non-Af Amer) BUN/Creatinine Ratio Glucose POC Glucose 182 H 218 H Calcium Magnesium Total Bilirubin AST ALT Alkaline Phosphatase Creatine Kinase CK-MM (CK-3) CK-MB (CK-2) CK-BB (CK-1) Creatine Kinase Interp Troponin I 0.017 Total Protein Albumin Globulin Albumin/Globulin Ratio 06/16/19 06/16/19 06/16/19 06:32 06:32 06:32 WBC 3.42 L RBC 2.83 L Hgb 10.2 L Hct 28.6 L MCV 101.1 H MCH 36.0 H MCHC 35.7 RDW Std Deviation 52.9 H RDW Coeff of Chloe 14.3 Plt Count 51 L MPV 10.5 H Sodium 146 H Potassium 3.6 Chloride 115 H Carbon Dioxide 23 Anion Gap 8.0 BUN 12 Creatinine 0.61 Est Cr Clr Drug Dosing 87.2 Est GFR ( Amer) 107.2 Est GFR (Non-Af Amer) 92.5 BUN/Creatinine Ratio 20.2 H Glucose 140 H POC Glucose Calcium 8.5 Magnesium 1.8 Total Bilirubin 1.7 H AST 54 H ALT 34 Alkaline Phosphatase 98 Creatine Kinase Pending CK-MM (CK-3) Pending CK-MB (CK-2) Pending CK-BB (CK-1) Pending Creatine Kinase Interp Pending Troponin I 0.026 Total Protein 5.5 L Albumin 2.2 L Globulin 3.3 Albumin/Globulin Ratio 0.7 L 06/16/19 06/16/19 07:27 10:51 WBC RBC Hgb Hct MCV MCH MCHC RDW Std Deviation RDW Coeff of Chloe Plt Count MPV Sodium Potassium Chloride Carbon Dioxide Anion Gap BUN Creatinine Est Cr Clr Drug Dosing Est GFR ( Amer) Est GFR (Non-Af Amer) BUN/Creatinine Ratio Glucose POC Glucose 150 H 254 H Calcium Magnesium Total Bilirubin AST ALT Alkaline Phosphatase Creatine Kinase CK-MM (CK-3) CK-MB (CK-2) CK-BB (CK-1) Creatine Kinase Interp Troponin I Total Protein Albumin Globulin Albumin/Globulin Ratio PG Care Time/CCT Total # of Minutes Spent Total Time Spent with Patient: Total time spent is greater than 50% in coordination of care (as documented) at patient's floor/unit and/or counseling patient: (1) Hyperlipidemia Hyperlipidemia type: mixed hyperlipidemia Qualified Code(s): E78.2 - Mixed hyperlipidemia (2) Cirrhosis Hepatic cirrhosis type: other cirrhosis Qualified Code(s): K74.69 - Other cirrhosis of liver (3) Chest pain Chest pain type: unspecified Qualified Code(s): R07.9 - Chest pain, unspecified (4) Abdominal pain Abdominal location: unspecified location Qualified Code(s): R10.9 - Unspecified abdominal pain (5) Liver cancer Liver malignancy type: unspecified liver malignancy Qualified Code(s): C22.9 - Malignant neoplasm of liver, not specified as primary or secondary
[2019-06-16] MEDS ORDERED: SODIUM CHLORIDE 0.45 % 1,000 ML IV SCH (17:45)
[2019-06-16] MEDS: ESCITALOPRAM OXALATE 10 MG TAB PO SCH (21:29)
[2019-06-16] MEDS: ATORVASTATIN 20 MG TAB PO SCH (21:29)
[2019-06-16] MEDS: ROPINIROLE HCL 0.25 MG TABLET PO SCH (21:29)
[2019-06-17 07:53] LABS: Hematocrit (blood only) 28.2 % (37-47); Hemoglobin 10.1 g/dL (12.0-16.0); Mean Corpuscular Hemoglobin 35.9 pg (25-34); Mean Corpuscular Hgb Conc 35.8 g/dL (32-36); Mean Corpuscular Volume 100.4 fL (80-100); RDW Coefficient of Variation 14.4 % (11.5-14.5); RDW Standard Deviation 52.2 fL (36.4-46.3); Red Blood Count 2.81 M/uL (4.2-5.4); White Blood Count 3.56 K/uL (4.8-10.8)
[2019-06-17 08:00] LABS: Mean Platelet Volume 10.4 fL (7.4-10.4); Platelet Count 53 K/uL (130-400)
[2019-06-17] MEDS: INSULIN GLARGINE SOLOSTAR 100 UNITS/ML 3 ML PEN SQ SCH ×2 (08:38→20:27)
[2019-06-17] MEDS: INSULIN ASPART 100 UNITS/ML 3 ML PEN SC SCH ×4 (08:39→20:26)
[2019-06-17] MEDS: RIFAXIMIN 550 MG TABLET PO SCH ×2 (08:40→20:17)
[2019-06-17] MEDS: LACTULOSE SYRUP 20 GM/30 ML UDC PO SCH ×2 (08:40→20:17)
[2019-06-17] MEDS: PANTOprazole 40 MG TAB PO SCH ×2 (08:40→17:15)
[2019-06-17] MEDS: FERROUS SULFATE 325 MG TAB PO SCH ×2 (08:41→17:15)
[2019-06-17] MEDS: ARTIFICIAL TEARS OPB SCH (08:41)
[2019-06-17] MEDS: NADOLOL 40 MG TAB PO SCH (08:41)
[2019-06-17] MEDS: GABAPENTIN 100 MG CAP PO SCH ×2 (08:41→20:17)
[2019-06-17] MEDS: MAGNESIUM OXIDE 400 MG TAB PO SCH (08:41)
[2019-06-17] MEDS: FOLIC ACID 1 MG TAB PO SCH (08:41)
[2019-06-17] MEDS: DOCUSATE SODIUM 100 MG CAP PO SCH (08:42)
[2019-06-17 08:58] LABS: Albumin Level 2.4 gm/dl (3.4-5.0); BUN Creatinine Ratio 12.5 (10-20); Bilirubin Direct 0.5 mg/dl (0-0.2); Bilirubin,Total 1.7 mg/dl (0.2-1); Calcium 8.3 mg/dl (8.5-10.1); Creatinine Clr Calc Pharmacy 85.8 ml/min; Est GFR (African American) 106.6; Potassium 3.6 mmol/L (3.5-5.1)
[2019-06-17 10:02] LABS: Folate (Folic Acid) > 24.00 ng/ml (>5.38); Vitamin B12 1859 pg/ml (211-911)
[2019-06-17] MEDS ORDERED: PHARMACY GLYCEMIC MGMT CONSULT PRN (13:37)
--- NOTE | 2019-06-17 13:43 | Urology Consultation ---
Date of Consultation June 17, 2019 Assessment & Plan (1) Kidney stone on right side: Discussed with patient stone. Currently does not appear to be obstructing. Not causing severe or significant pain. Does have diffuse abdominal discomfort but she relates this to her chronic liver issues. Patient has previously had a stone intervened on in the past. Had lithotripsy many years ago in a tub device. Patient is currently tolerating hydration. No severe major changes. No fevers or chills no major bleeding. Patient has not passed stone many years. Has had not been worked up for stones in the past. Patient is resting comfortably. We will plan to continue to follow. If patient needs intervention may need stent. We will continue to follow to see if that becomes a needed intervention. History of Present Illness Attending Physician: Aidan Avila MD History of Present Illness Patient with multiple syncopes and chronic medical issues. Patient was admitted with abdominal pain and ascites. 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 Patient is been slowly improving. Had CT scan to assess for possible causes of obstruction, abdominal pain, or other issues. Patient was found to have 7 mm stone in the right ureter. This was past the UPJ but not causing any obvious major obstruction. Patient has had stones in the past. Had to have ESWL in the past. Patient has some chronic abdominal pain which is worsening. Rating to back and flank. Coming in waves. Has been similar to previous abdominal pains related to her cirrhosis and ascites. Allergies Allergy/AdvReac Type Severity Reaction Status Date / Time methyl salicylate Allergy Mild RASH Verified 06/15/19 10:25 nickel Allergy Mild RASH Verified 06/15/19 10:25 zinc Allergy Mild RASH Verified 06/15/19 10:25 diphenhydramine AdvReac Intermediate BURNING Verified 06/15/19 10:25 EYES,DIZZY,BLISTERS Home Medications Home Medications Medication Instructions Recorded Confirmed Type aspirin [Aspirin Low Dose] 81 mg PO QAM 04/13/18 06/15/19 History cholecalciferol (vitamin D3) 2,000 unit PO QAM 04/13/18 06/15/19 History atorvastatin 20 mg tablet 20 mg PO HS #90 tab 01/31/19 06/15/19 Rx furosemide 20 mg tablet 40 - 60 mg PO DAILY PRN #90 tab 01/31/19 06/15/19 Rx rifaximin 550 mg tablet 550 mg PO BID #60 tab 01/31/19 06/15/19 Rx docusate sodium 100 mg capsule 200 mg PO DAILY #60 cap 02/08/19 06/15/19 Rx gabapentin 300 mg capsule 300 mg PO BID #60 cap 03/01/19 06/15/19 Rx carboxymethylcellulose sodium 1 drp OPB DAILY 04/14/19 06/15/19 History [Refresh Liquigel] ferrous sulfate 325 mg PO BIDM 04/14/19 06/15/19 History insulin glargine [Basaglar KwikPen 40 unit SUBCUT BID 04/14/19 06/15/19 History U-100 Insulin] magnesium oxide 400 mg PO DAILY 04/14/19 06/15/19 History lancets 30 gauge ea 04/19/19 04/19/19 History insulin aspart U-100 100 unit/mL See Rx Instructions SUBCUT 04/21/19 06/15/19 Rx (3 mL) subcutaneous pen .COMPLEX #15 ml lactulose 10 gram/15 mL oral 30 ml PO DIRECTED PRN #1892 ml 05/17/19 06/15/19 Rx solution escitalopram oxalate 10 mg PO HS 06/15/19 06/15/19 History folic acid 1 mg PO DAILY 06/15/19 06/15/19 History nadolol 20 mg PO DAILY 06/15/19 06/15/19 History pantoprazole 40 mg PO BIDM 06/15/19 06/15/19 History ropinirole 0.5 mg PO HS 06/15/19 06/15/19 History Patient History Medical History (Updated 06/17/19 @ 00:01 by Willard Cartwright) Altered mental status Anemia (Chronic) Anxiety Cataracts, bilateral (Acute) Chest pain (Acute) Cholelithiasis (Acute) Chronic back pain Cirrhosis Cirrhosis COPD (chronic obstructive pulmonary disease) (Chronic) Depression Depression with anxiety (Acute) Diabetes (Chronic) Diabetes mellitus, type 2 Edema (Acute) Edema of lower extremity (Acute) Hemochromatosis (Chronic) HTN (hypertension) (Chronic) Hyperglycemia (Acute) Hyperlipidemia Hyperlipidemia (Chronic) Hypomagnesemia (Acute) Increased ammonia level (Chronic) Kidney stones Liver cancer Migraine Neuropathy Osteoarthritis Pancytopenia (Acute) Pneumonia (Resolved) Psychological disorder (Acute) Right-sided chest wall pain (Acute) Sepsis (Acute) Shortness of breath on exertion Skin cancer of face Sleep apnea cpap Syncope (Acute 11/16/13) Syncope (Acute) 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, with long-term current use of insulin (Chronic) UTI (urinary tract infection) (Acute) Surgical History History of arthroscopy of left shoulder History of arthroscopy of right knee History of bilateral cataract extraction History of carpal tunnel surgery of left wrist History of lithotripsy History of Mohs micrographic surgery for skin cancer History of tonsillectomy and adenoidectomy History of tooth extraction all teeth removed History of total abdominal hysterectomy and bilateral salpingo-oophorectomy Family History Brother Family history of diabetes mellitus Sister Family history of diabetes mellitus Other Family history non-contributory No family history of adverse response to anesthesia Social History Preferred Language: Citizen Of [place] Communication Ability: Impaired Visual Impairment: No Limitations Travel Administrator Required: No Beliefs That Will Affect Care: None Current Living Situation: Family Current Living Situation Comment: lives with son Other Information That Helps Us Care for You: No Feels Safe at Home: Yes Safety Concerns: Feels Safe At This Time Smoking Status: Former smoker Do You Dip or Chew Tobacco: No ; Second Hand Exposure: No ; Tobacco Cessation Education Requested by Patient: No Hx Alcohol Use: No Hx Substance Use: No Review of Systems Review of Systems: All systems reviewed & are unremarkable except as noted in HPI & below Physical Exam Physical Exam: General: Alert and oriented x 3 in no acute distress. Chronic medical issues with chronic liver failure HEENT: Normocephalic Atraumatic. Inspection normal. Cranial Nerves 2-12 Grossly intact. Nares are clear. Neck is supple. Normal inspection of face. Normal inspection of neck. Neurologic: No deficits on inspection. Baseline for motor function and sensory. Psychologic: Normal affect. Respiratory: Nonlabored. No use of accessory muscles. No tachypnea or dyspnea. Cardiovascular: No tachycardia Skin: [place] and Dry. No rashes or visible lesions. Extremities: Moving without issues. No motor deficits on inspection Lymphatics: Moderate edema Abdomen: Distended. Chronic ascites. Mild tenderness in all 4 quadrants. Results & Data Vital Signs (Past 12 Hours) Vital Signs Temp Pulse Pulse Resp BP Pulse Ox 06/17/19 11:09 36.8 C 68 18 156/63 H 95 06/17/19 10:56 63 06/17/19 07:19 36.9 C 79 20 166/54 H 98 06/17/19 03:00 36.7 C 66 16 161/57 H 97 PG Care Time/CCT Total # of Minutes Spent Total Time Spent with Patient: Total time spent is greater than 50% in coordination of care (as documented) at patient's floor/unit and/or counseling patient:
[2019-06-17] MEDS ORDERED: POTASSIUM CHLORIDE 20 MEQ TABCR PO STA (13:48)
--- NOTE | 2019-06-17 14:11 | Pharmacy Report ---
Glycemic Control Consultation - Date of Service June 17, 2019 - Scope Scope: Glycemic Pharmacist consulted by Dr Avila on 06/17/19 for glycemic control and to write orders per [facility] inpatient glycemic control protocol - Objective Weight: 74.8 kg Accuchecks BSG (last 24hrs): 06/16/19 06/16/19 06/17/19 16:19 20:44 07:17 Glucose POC Glucose 160 H 136 H 122 H 06/17/19 06/17/19 06/17/19 07:34 11:11 11:12 Glucose 123 H POC Glucose 335 H* 315 H* Laboratory Data (last 24hrs): 06/17/19 07:34 Potassium 3.6 Carbon Dioxide 23 Anion Gap 6.0 Creatinine 0.62 Est Cr Clr Drug Dosing 85.8 - Recent Pertinent Medications Outpatient Anti-diabetic Regimen: * Basaglar 40u BID, SSI * A1c = 8.2 % 02/06/19 - Assessment & Plan Assessment & Plan: ASSESSMENT: * Ms. Rangel is a 68yo F type 2 diabetic. P/w HE, altered mentation. PMHx consistent with: VELEZ, varices, HLD, among others. Most recent A1C was 8.3% from 02/06/19. Pt is chronically anemic, A1C likely not helpful in assessing glycemic control. * She had some hyperglycemia at lunch, likely 2/2 to diet and slight basal deficiency. We will provide 4u IV regular insulin. D/w attending her potassium lvl of 3.5 on AM labs. PO K 40 meq x1. PLAN FOR INPATIENT GLYCEMIC CONTROL: * Basal insulin * received 20units or 30units of lantus BID over previous days. Will try to work back to her home Rx of 40u BID. Lantus scale on for tonight * give 30u for BSG <120 * give 40u for BSGs >/=120 * Bolus insulin * NovoLog per scale ACHS or Q6hrs while NPO * Goal Range: Low 120 mg/dL - High 160 mg/dL * Correction Factor: 15 mg/dL/unit * Nutritional / Prandial insulin per carb ratio of 1 unit per 5 grams CHO consumed * Please note that the plan above was derived based on current level of insulin resistance and hospital stress. These recommendations are appropriate for inpatient admission only. Plan of care upon discharge will need to be reassessed to avoid potential outpatient hypo/hyperglycemia. Thank you.
[2019-06-17] MEDS ORDERED: INSULIN HUMAN REGULAR IV BOLUS 4 UNITS in SYRINGE 0 ML IV ONE (14:15)
[2019-06-17 14:29] LABS: Estimated Average Glucose 206 mg/dl; Hemoglobin A1C 8.8 % (4.5-5.6)
[2019-06-17] MEDS: ESCITALOPRAM OXALATE 10 MG TAB PO SCH (20:17)
[2019-06-17] MEDS: ATORVASTATIN 20 MG TAB PO SCH (20:17)
[2019-06-17] MEDS: ROPINIROLE HCL 0.25 MG TABLET PO SCH (20:17)
--- NOTE | 2019-06-17 23:46 | Hospitalist Progress Note ---
Date of Service June 17, 2019 Assessment & Plan (1) Encephalopathy, hepatic: Patient possible back to baseline as per her son. Unclear cause of ammonia increase but appears to be cause of encephalopathy Cont rifaximin BID. Cont lactulose. (2) Kidney stone on right side: Suprapubic pain on exam. Repeat UA +culture. Appreciate urology recommendation. 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 troponins x 3 wnl (9) Abdominal pain: UA/micro + culture (10) Liver cancer: dx at [facility] [place] sometime in the last 1-2 months has 9mm nodule in the right lobe - uncertain if that is the location of cancer or not she will need f/u at [facility] [place] sometime after discharge from here (11) DVT prophylaxis: SCDs only in light of thrombocytopenia now that patient is more awake/alert will order PT/OT evals Results & Data Vital Signs (Past 12 Hours) Vital Signs Temp Pulse Pulse Resp BP Pulse Ox 06/17/19 23:05 99.3 F 72 16 144/56 H 95 06/17/19 21:48 99.3 F 72 16 147/65 H 95 06/17/19 17:34 72 06/17/19 15:49 98.1 F 71 17 165/66 H 96 PG Care Time/CCT Total # of Minutes Spent Total Time Spent with Patient: Total time spent is greater than 50% in coordination of care (as documented) at patient's floor/unit and/or counseling patient: (1) Liver cancer Liver malignancy type: unspecified liver malignancy Qualified Code(s): C22.9 - Malignant neoplasm of liver, not specified as primary or secondary (2) Hyperlipidemia Hyperlipidemia type: mixed hyperlipidemia Qualified Code(s): E78.2 - Mixed hyperlipidemia (3) Cirrhosis Hepatic cirrhosis type: other cirrhosis Qualified Code(s): K74.69 - Other cirrhosis of liver (4) Abdominal pain Abdominal location: unspecified location Qualified Code(s): R10.9 - Unspecified abdominal pain (5) Chest pain Chest pain type: unspecified Qualified Code(s): R07.9 - Chest pain, unspecified
[2019-06-18 05:32] LABS: Hematocrit (blood only) 27.3 % (37-47); Hemoglobin 9.5 g/dL (12.0-16.0); Mean Corpuscular Hemoglobin 35.1 pg (25-34); Mean Corpuscular Hgb Conc 34.8 g/dL (32-36); Mean Corpuscular Volume 100.7 fL (80-100); RDW Coefficient of Variation 14.4 % (11.5-14.5); RDW Standard Deviation 52.3 fL (36.4-46.3); Red Blood Count 2.71 M/uL (4.2-5.4); White Blood Count 4.12 K/uL (4.8-10.8)
[2019-06-18 05:35] LABS: Mean Platelet Volume 10.2 fL (7.4-10.4); Platelet Count 53 K/uL (130-400)
[2019-06-18 05:40] LABS: INR 1.4 (0.9-1.1); Prothrombin Time 13.8 Seconds (9.0-12.0)
[2019-06-18 05:50] LABS: Basophils # (auto) 0.01 K/uL (0-0.2); Basophils % (auto) 0.2 %; Eosinophils # (auto) 0.15 K/uL (0-0.5); Eosinophils % (auto) 3.6 %; Lymphocytes # (auto) 1.25 K/uL (1.2-3.4); Lymphocytes % (auto) 30.3 %; Monocytes # (auto) 0.41 K/uL (0.11-0.59); Neutrophils % (auto) 55.9 %
[2019-06-18 06:04] LABS: Albumin Level 2.1 gm/dl (3.4-5.0); BUN Creatinine Ratio 17.1 (10-20); Calcium 8.1 mg/dl (8.5-10.1); Creatinine Clr Calc Pharmacy 85.8 ml/min; Est GFR (African American) 106.6; Potassium 3.8 mmol/L (3.5-5.1)
[2019-06-18 06:07] LABS: Albumin Globulin Ratio 0.7 (0.9-2); Bilirubin,Total 1.4 mg/dl (0.2-1); Globulin 3.2 gm/dl (2.5-4.0); Total Protein 5.3 gm/dl (6.4-8.2)
[2019-06-18] MEDS: FOLIC ACID 1 MG TAB PO SCH (09:06)
[2019-06-18] MEDS: RIFAXIMIN 550 MG TABLET PO SCH ×2 (09:06→20:10)
[2019-06-18] MEDS: MAGNESIUM OXIDE 400 MG TAB PO SCH (09:06)
[2019-06-18] MEDS: NADOLOL 40 MG TAB PO SCH (09:06)
[2019-06-18] MEDS: DOCUSATE SODIUM 100 MG CAP PO SCH (09:06)
[2019-06-18] MEDS: LACTULOSE SYRUP 20 GM/30 ML UDC PO SCH ×3 (09:07→20:10)
[2019-06-18] MEDS: ARTIFICIAL TEARS OPB SCH (09:07)
[2019-06-18] MEDS: GABAPENTIN 100 MG CAP PO SCH ×2 (09:07→20:10)
[2019-06-18] MEDS: FERROUS SULFATE 325 MG TAB PO SCH ×2 (09:07→17:43)
[2019-06-18] MEDS: PANTOprazole 40 MG TAB PO SCH ×2 (09:07→17:44)
[2019-06-18] MEDS: INSULIN GLARGINE SOLOSTAR 100 UNITS/ML 3 ML PEN SQ SCH ×2 (09:08→20:50)
[2019-06-18] MEDS: INSULIN ASPART 100 UNITS/ML 3 ML PEN SC SCH ×4 (09:09→20:49)
--- NOTE | 2019-06-18 10:31 | Pharmacy Report ---
Pharmacy Glycemic Short Note 2 - Date of Service June 18, 2019 - Glycemic Short BSG Results (Last 24 hours): 06/17/19 06/17/19 06/17/19 11:11 11:12 14:19 Glucose POC Glucose 335 H* 315 H* 313 H* 06/17/19 06/17/19 06/18/19 16:26 20:23 04:52 Glucose 84 POC Glucose 161 H 102 H 06/18/19 08:55 Glucose POC Glucose 154 H ASSESSMENT: * BSGs have been adequate over the previous 24hrs. Yesterday's hyperglycemia resolved after IV insulin bolus. No other RF to confer insulin resistance at this time. Diet continues. PLAN FOR INPATIENT GLYCEMIC CONTROL: * Basal insulin * Lantus SQ BID scale: BSGs <120 give 30 units, BSGs >/=120 give 40 units (home Rx) * Bolus insulin * NovoLog per scale ACHS or Q6hrs while NPO * Goal Range: Low 120 mg/dL - High 160 mg/dL * Correction Factor: 15 mg/dL/unit * Nutritional / Prandial insulin per carb ratio of 1 unit per 5 grams CHO consumed
[2019-06-18 13:50] LABS: Appearance Urine Clear (Clear); Bacteria Urine Automated Negative (Negative); Bilirubin Urine Negative (Negative); Blood Urine 2+ (Negative); Color Urine Dark Yellow; Glucose Urine UA 2+ (Negative); Ketones Urine Negative (Negative); Leukocyte Esterase Urine Trace (Negative); Nitrite Urine Negative (Negative); Protein Urine 1+ (Negative); Specific Gravity Urine 1.021 (1.000-1.030); Urobilinogen Urine Negative (Negative); pH Urine 6.5 (4.5-7.5)
[2019-06-18] MEDS ORDERED: INSULIN HUMAN REGULAR IV BOLUS 4 UNITS in SYRINGE 0 ML IV ONE (17:45)
[2019-06-18] MEDS: ESCITALOPRAM OXALATE 10 MG TAB PO SCH (20:10)
[2019-06-18] MEDS: ATORVASTATIN 20 MG TAB PO SCH (20:10)
[2019-06-18] MEDS: ROPINIROLE HCL 0.25 MG TABLET PO SCH (20:10)
--- NOTE | 2019-06-19 00:02 | Hospitalist Progress Note ---
Date of Service June 18, 2019 Assessment & Plan (1) Encephalopathy, hepatic: Patient possible back to baseline as per her son. Unclear cause of ammonia increase but appears to be cause of encephalopathy given rapid resolution. Cont rifaximin BID. Will increase lactulose back to QID given increase in ammonia (2) Kidney stone on right side: Suprapubic pain on exam. Repeat UA +culture. Appreciate urology recommendation. 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 troponins x 3 wnl (9) Abdominal pain: UA/micro + culture (10) Liver cancer: dx at [facility] [place] sometime in the last 1-2 months has 9mm nodule in the right lobe - uncertain if that is the location of cancer or not she will need f/u at [facility] sometime after discharge from here (11) DVT prophylaxis: SCDs only in light of thrombocytopenia now that patient is more awake/alert will order PT/OT evals (12) Discharge planning issues: Physical therapy seen and recommend home with home health. Subjective Patient reports ongoing suprapubic, left lower quadrant and right lower quadrant pain on palpation. She reports this been going on for 2 weeks getting progressively worse over that time. Denies any urinary symptoms such as dysuria, change in color, smell or frequency. No pain on movement of her lower extremities. No fevers or chills. Son is at bedside. Possibly more confused than yesterday with ammonia increasing. Patient reports having 3 bowel movements in the last 24 hours. Review of Systems Review of Systems: All systems reviewed & are unremarkable except as noted in HPI & below Physical Exam Constitutional: well developed and + ill appearing; + not well nourished, no acute distress and no altered mental status Eyes: + anicteric sclerae and EOM intact bilaterally; normal pupil size Respiratory: normal respiratory effort, lungs clear to auscultation Cardiovascular: Rate/Rhythm: regular rate and regular rhythm Heart Sounds: normal S1 and normal S2; no murmur Vessels: no JVD Extremities: + pedal ed lyla (1+ b/l ) Gastrointestinal (Abdomen): Inspection/Auscultation: + abdomen distended (mild) and normal bowel sounds Percussion/Palpation: + abdomen tender (b/l lower quadrants L > R) and abdomen soft; no guarding and abdomen not rigid Skin: no rashes, warm and dry Neurologic: moves all extremities and awake; no focal motor deficits and not confused Psychiatric: A+Ox3, euthymic affect Results & Data Vital Signs (Past 12 Hours) Vital Signs Temp Pulse Resp BP Pulse Ox 06/18/19 16:06 97.7 F 66 16 156/61 H 100 PG Care Time/CCT Total # of Minutes Spent Total Time Spent with Patient: Total time spent is greater than 50% in coordina tion of care (as documented) at patient's floor/unit and/or counseling patient: (1) Liver cancer Liver malignancy type: unspecified liver malignancy Qualified Code(s): C22.9 - Malignant neoplasm of liver, not specified as primary or secondary (2) Hyperlipidemia Hyperlipidemia type: mixed hyperlipidemia Qualified Code(s): E78.2 - Mixed hyperlipidemia (3) Cirrhosis Hepatic cirrhosis type: other cirrhosis Qualified Code(s): K74.69 - Other cirrhosis of liver (4) Abdominal pain Abdominal location: unspecified location Qualified Code(s): R10.9 - Unspecified abdominal pain (5) Chest pain Chest pain type: unspecified Qualified Code(s): R07.9 - Chest pain, unspecified
[2019-06-19 05:26] LABS: INR 1.4 (0.9-1.1); Prothrombin Time 13.7 Seconds (9.0-12.0)
[2019-06-19 05:27] LABS: Hematocrit (blood only) 29.4 % (37-47); Hemoglobin 10.3 g/dL (12.0-16.0); Mean Corpuscular Hemoglobin 35.4 pg (25-34); RDW Coefficient of Variation 14.7 % (11.5-14.5); RDW Standard Deviation 53.2 fL (36.4-46.3); Red Blood Count 2.91 M/uL (4.2-5.4); White Blood Count 4.26 K/uL (4.8-10.8)
[2019-06-19 05:33] LABS: Albumin Level 2.2 gm/dl (3.4-5.0); BUN Creatinine Ratio 17.8 (10-20); Calcium 8.3 mg/dl (8.5-10.1); Creatinine Clr Calc Pharmacy 84.4 ml/min; Est GFR (African American) 106.1; Est GFR (Non-African American) 91.5; Potassium 3.7 mmol/L (3.5-5.1)
[2019-06-19 05:35] LABS: Mean Platelet Volume 10.5 fL (7.4-10.4); Platelet Count 54 K/uL (130-400)
[2019-06-19 05:36] LABS: Albumin Globulin Ratio 0.6 (0.9-2); Bilirubin,Total 1.6 mg/dl (0.2-1); Globulin 3.4 gm/dl (2.5-4.0); Total Protein 5.6 gm/dl (6.4-8.2)
[2019-06-19 05:58] LABS: Basophils # (auto) 0.02 K/uL (0-0.2); Basophils % (auto) 0.5 %; Eosinophils # (auto) 0.22 K/uL (0-0.5); Eosinophils % (auto) 5.2 %; Immature Granulocytes # (auto) 0.01 K/uL (0.00-0.02); Immature Granulocytes % (auto) 0.2 %; Lymphocytes # (auto) 1.03 K/uL (1.2-3.4); Lymphocytes % (auto) 24.2 %; Monocytes # (auto) 0.51 K/uL (0.11-0.59); Neutrophils # (auto) 2.47 K/uL (1.4-6.5); Neutrophils % (auto) 57.9 %
[2019-06-19] MEDS: DOCUSATE SODIUM 100 MG CAP PO SCH (08:41)
[2019-06-19] MEDS: PANTOprazole 40 MG TAB PO SCH ×2 (08:43→18:01)
[2019-06-19] MEDS: FERROUS SULFATE 325 MG TAB PO SCH ×2 (08:43→18:01)
[2019-06-19] MEDS: NADOLOL 40 MG TAB PO SCH (08:43)
[2019-06-19] MEDS: MAGNESIUM OXIDE 400 MG TAB PO SCH (08:45)
[2019-06-19] MEDS: FOLIC ACID 1 MG TAB PO SCH (08:45)
[2019-06-19] MEDS: RIFAXIMIN 550 MG TABLET PO SCH ×2 (08:45→20:08)
[2019-06-19] MEDS: LACTULOSE SYRUP 20 GM/30 ML UDC PO SCH ×4 (08:46→20:08)
[2019-06-19] MEDS: ARTIFICIAL TEARS OPB SCH (08:46)
[2019-06-19] MEDS: GABAPENTIN 100 MG CAP PO SCH ×2 (08:46→20:08)
[2019-06-19] MEDS: INSULIN GLARGINE SOLOSTAR 100 UNITS/ML 3 ML PEN SQ SCH ×2 (09:14→20:52)
[2019-06-19] MEDS: INSULIN ASPART 100 UNITS/ML 3 ML PEN SC SCH ×4 (09:15→20:52)
--- NOTE | 2019-06-19 10:32 | Pharmacy Report ---
Pharmacy Glycemic Short Note 2 - Date of Service June 19, 2019 - Glycemic Short BSG Results (Last 24 hours): 06/18/19 06/18/19 06/18/19 12:06 12:08 17:05 Glucose POC Glucose 356 H* 366 H* 352 H* 06/18/19 06/18/19 06/19/19 17:06 20:45 05:07 Glucose 62 L POC Glucose 350 H* 202 H 06/19/19 07:54 Glucose POC Glucose 85 OUTPATIENT REGIMEN: * Basaglar 40 units SC BID * Novolog sliding scale (see med rec for details - ranges 0-10 units based on BSG) * HbA1c: 8.8% (06/17/19) ASSESSMENT: * Hospital day #5 - admitted for hepatic encephalopathy, which is resolving * BSGs ranging 84-356 mg/dL yesterday * Fasting BSG this AM is 85 mg/dL - will back off on basal * Patient received 146 units of insulin yesterday (80 of which was basal) PLAN FOR INPATIENT GLYCEMIC CONTROL: * Basal insulin * Lantus 30 units given this morning * Lantus scale starting this evening * -If BSG 160 mg/dL or less - 30 units, 161-199 - 35 units, 200 mg/dL or above -40 units * Bolus insulin - tighten carb ratio * NovoLog per scale ACHS or Q6hrs while NPO * Goal Range: Low 120 mg/dL - High 160 mg/dL * Correction Factor: 15 mg/dL/unit * Nutritional / Prandial insulin per carb ratio of 1 unit per 4 grams CHO consumed DISCHARGE: - Patient's A1c of 8.8% is above goal. Reasonable goal for most non- adults is less than 7%. - Will likely require increased doses of insulin - Consider increasing intensity of sliding scale: * Blood Sugar 70-130 administer 0 units * Blood Sugar 131-180 administer 3 units * Blood Sugar 181-240 administer 5 units * Blood Sugar 241-300 administer 7 units * Blood Sugar 301-350 administer 9 units * Blood Sugar 351-400 administer 11 units * Blood Sugar >400 administer 13 units and call
--- NOTE | 2019-06-19 11:22 | Urology Progress Note ---
Date of Service June 19, 2019 Assessment & Plan (1) Kidney stone on right side: Assessment Right ureteral calculus Stone does not appear to be causing the patient any problems at this time We will continue to watch it for now Will probably need outpatient ESWL Subjective Patient is afebrile vital signs are stable Has intermittent diffuse abdominal pain Not having any significant flank pain Voiding without problem Physical Exam Physical Exam: Well-developed well-nourished white female no acute distress No flank pain to percussion Abdomen diffusely tender to palpation Extremities without calf pain or edema Results & Data Vital Signs (Past 12 Hours) Vital Signs Temp Pulse Resp BP Pulse Ox 06/19/19 07:50 36.7 C 70 16 160/58 H 95 PG Care Time/CCT Total # of Minutes Spent Total Time Spent with Patient: Total time spent is greater than 50% in coordination of care (as documented) at patient's floor/unit and/or counseling patient:
--- NOTE | 2019-06-19 18:43 | Hospitalist Progress Note ---
Date of Service June 19, 2019 Assessment & Plan (1) Encephalopathy, hepatic: Patient possible back to baseline as per her son. Unclear cause of ammonia increase but appears to be cause of encephalopathy given rapid resolution. Cont rifaximin BID. will continue lactulose and will monitor. If patient continues to improve in regards to her mental status, will consider discharge in AM. (2) Kidney stone on right side: Suprapubic pain on exam. Repeat UA +culture. Appreciate urology recommendation. 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 troponins x 3 wnl (9) Abdominal pain: UA/micro + culture (10) Liver cancer: dx at [facility] [place] sometime in the last 1-2 months has 9mm nodule in the right lobe - uncertain if that is the location of cancer or not she will need f/u at [facility] sometime after discharge from here (11) DVT prophylaxis: SCDs only in light of thrombocytopenia now that patient is more awake/alert PT recommending home health (12) Discharge planning issues: Physical therapy seen and recommend home with home health. Subjective Pleasant 68-year-old female seen in room with her son at bedside. Patient reports feeling better today, she states she is sad that her brother in law recently . Her son states she is close to her baseline in regards to her mental status. Review of Systems Review of Systems: All systems reviewed & are unremarkable except as noted in HPI & below Physical Exam Physical Exam: Constitutional: well developed and + ill appearing; + not well nourished, no acute distress and no altered mental status Eyes: + anicteric sclerae and EOM intact bilaterally; normal pupil size Respiratory: normal respiratory effort, lungs clear to auscultation Cardiovascular: Rate/Rhythm: regular rate and regular rhythm Heart Sounds: normal S1 and normal S2; no murmur Vessels: no JVD Extremities: + pedal edema (1+ b/l ) Gastrointestinal (Abdomen): Inspection/Auscultation: + abdomen distended (mild) and normal bowel sounds Percussion/Palpation: mildly tender to palpation, and abdomen soft; no guarding and abdomen not rigid Skin: no rashes, warm and dry Neurologic: moves all extremities and awake; no focal motor deficits and not confused Psychiatric: A+Ox3, euthymic affect Results & Data Vital Signs (Past 12 Hours) Vital Signs Temp Pulse Pulse Resp BP BP Pulse Ox 06/19/19 15:22 37.1 C 70 18 135/61 98 06/19/19 12:23 36.7 C 66 16 132/70 95 06/19/19 07:50 36.7 C 70 16 160/58 H 95 PG Care Time/CCT Total # of Minutes Spent Total Time Spent with Patient: Total time spent is greater than 50% in coordination of care (as documented) at patient's floor/unit and/or counseling patient: (1) Cirrhosis Hepatic cirrhosis type: other cirrhosis Qualified Code(s): K74.69 - Other cirrhosis of liver (2) Hyperlipidemia Hyperlipidemia type: mixed hyperlipidemia Qualified Code(s): E78.2 - Mixed hyperlipidemia (3) Chest pain Chest pain type: unspecified Qualified Code(s): R07.9 - Chest pain, unspecified (4) Abdominal pain Abdominal location: unspecified location Qualified Code(s): R10.9 - Unspecified abdominal pain (5) Liver cancer Liver malignancy type: unspecified liver malignancy Qualified Code(s): C22.9 - Malignant neoplasm of liver, not specified as primary or secondary
[2019-06-19] MEDS: ROPINIROLE HCL 0.25 MG TABLET PO SCH (20:08)
[2019-06-19] MEDS: ESCITALOPRAM OXALATE 10 MG TAB PO SCH (20:08)
[2019-06-19] MEDS: ATORVASTATIN 20 MG TAB PO SCH (20:08)
[2019-06-20] MEDS: INSULIN ASPART 100 UNITS/ML 3 ML PEN SC SCH ×3 (08:56→16:59)
[2019-06-20] MEDS: PANTOprazole 40 MG TAB PO SCH ×2 (08:58→16:58)
[2019-06-20] MEDS: FERROUS SULFATE 325 MG TAB PO SCH ×2 (08:58→16:58)
[2019-06-20] MEDS: MAGNESIUM OXIDE 400 MG TAB PO SCH (08:58)
[2019-06-20] MEDS: NADOLOL 40 MG TAB PO SCH (08:59)
[2019-06-20] MEDS: LACTULOSE SYRUP 20 GM/30 ML UDC PO SCH ×3 (09:00→16:58)
[2019-06-20] MEDS: ARTIFICIAL TEARS OPB SCH (09:00)
[2019-06-20] MEDS: DOCUSATE SODIUM 100 MG CAP PO SCH (09:00)
[2019-06-20] MEDS: GABAPENTIN 100 MG CAP PO SCH (09:00)
[2019-06-20] MEDS: RIFAXIMIN 550 MG TABLET PO SCH (09:00)
[2019-06-20] MEDS: FOLIC ACID 1 MG TAB PO SCH (09:01)
[2019-06-20] MEDS: INSULIN GLARGINE SOLOSTAR 100 UNITS/ML 3 ML PEN SQ SCH (09:09)
--- NOTE | 2019-06-20 09:54 | Pharmacy Report ---
Pharmacy Glycemic Short Note 2 - Date of Service June 20, 2019 - Glycemic Short BSG Results (Last 24 hours): 06/19/19 06/19/19 06/19/19 11:49 11:52 17:01 POC Glucose 283 H 284 H 194 H 06/19/19 06/20/19 20:36 08:07 POC Glucose 190 H 74 OUTPATIENT REGIMEN: * Basaglar 40 units SC BID * Novolog sliding scale (see med rec for details - ranges 0-10 units based on BSG) * HbA1c: 8.8% (06/17/19) ASSESSMENT: * Hospital day #6 - admitted for hepatic encephalopathy, which is resolving * BSGs ranging 85-284 mg/dL yesterday - lunch BSGs continue to be elevated * Fasting BSG this AM is 74 mg/dL * Patient received 116 units of insulin yesterday (65 of which was basal) PLAN FOR INPATIENT GLYCEMIC CONTROL: * Basal insulin * Lantus 30 units given this morning * Lantus scale beginning this evening * - 30 units if BSG 199 mg/dL or less * - 35 units if BSG 200 mg/dL or above * Bolus insulin - slightly lower goal range * NovoLog per scale ACHS or Q6hrs while NPO * Goal Range: Low 110 mg/dL - High 150 mg/dL * Correction Factor: 15 mg/dL/unit * Nutritional / Prandial insulin per carb ratio of 1 unit per 4 grams CHO consumed DISCHARGE: - Patient's A1c of 8.8% is above goal. Reasonable goal for most non- adults is less than 7%. - Will likely require increased doses of insulin - Consider increasing intensity of sliding scale: * Blood Sugar 70-130 administer 0 units * Blood Sugar 131-180 administer 3 units * Blood Sugar 181-240 administer 5 units * Blood Sugar 241-300 administer 7 units * Blood Sugar 301-350 administer 9 units * Blood Sugar 351-400 administer 11 units * Blood Sugar >400 administer 13 units and call
--- NOTE | 2019-06-20 10:29 | Urology Progress Note ---
Date of Service June 20, 2019 Assessment & Plan (1) Kidney stone on right side: right ureteral stone with numerous comorbidities - currently minimally symptomatic to asymptomatic continue observation stone could pass spontaneously if necessary - intervention could occur as ESWL or URS - ESWL would need to be debated (INR OK, but she has cirrhosis and risks for bleeding would in turn be increased) Subjective doing ok states that she is sore on her left flank and abd in general - no clear right flank pain Physical Exam Physical Exam: AFVSS NAD AAOx3 - no evidence of encephalopathy currently no resp distress RRR abd soft, minimal tenderness on the right > left to deep palpation Results & Data Vital Signs (Past 12 Hours) Vital Signs Temp Pulse Resp BP BP Pulse Ox 06/20/19 07:51 37.0 C 68 18 149/66 H 93 06/19/19 23:05 37.3 C 69 16 155/66 H 95 PG Care Time/CCT Total # of Minutes Spent Total Time Spent with Patient: Total time spent is greater than 50% in coordination of care (as documented) at patient's floor/unit and/or counseling patient:
--- NOTE | 2019-06-21 09:15 | Discharge Summary ---
Date of Service June 20, 2019 Admission HPI Per Admitting Provider 68-year-old female with past medical history of cirrhosis, nonalcoholic, hyper ammonia, COPD, diabetes mellitus type 2 insulin requiring, GERD, restless leg syndrome, dyslipidemia and depression. Patient liver status has been compensated until her presentation to the ED today. As per son she started being confused and slightly lethargic 2 days prior to admission. Her son reported that she complained of generalized abdominal pain. In ED she only complained of chest pain when she was asked about the review of system but she had no other complaint, review of system is suboptimal due to the change of mental status. Patient ammonia level was found to be 101 patient will be admitted for further management. Principal Diagnosis hepatic encephalopathy Discharge Exam Constitutional: well developed and + ill appearing; + not well nourished, no acute distress and no altered mental status Eyes: + anicteric sclerae and EOM intact bilaterally; normal pupil size Respiratory: normal respiratory effort, lungs clear to auscultation Cardiovascular: Rate/Rhythm: regular rate and regular rhythm Heart Sounds: normal S1 and normal S2; no murmur Vessels: no JVD Extremities: + pedal edema (1+ b/l ) Gastrointestinal (Abdomen): Inspection/Auscultation: + abdomen distended (mild) and normal bowel sounds Percussion/Palpation: mildly tender to palpation, and abdomen soft; no guarding and abdomen not rigid Skin: no rashes, warm and dry Neurologic: moves all extremities and awake; no focal motor deficits and not confused Psychiatric: A+Ox3, euthymic affect Discharge Data Allergies Allergy/AdvReac Type Severity Reaction Status Date / Time methyl salicylate Allergy Mild RASH Verified 06/15/19 10:25 nickel Allergy Mild RASH Verified 06/15/19 10:25 zinc Allergy Mild RASH Verified 06/15/19 10:25 diphenhydramine AdvReac Intermediate BURNING Verified 06/15/19 10:25 EYES,DIZZY,BLISTERS Consultations 06/16/19 15:43 Consult Urology Routine Ordered Studies 06/15/19 10:44 CT head/brain wo con Stat 06/16/19 11:20 CT abd pelvis oral and IV con Routine Hospital Course (1) Encephalopathy, hepatic: Patient possible back to baseline as per her son. Unclear cause of ammonia increase but appears to be cause of encephalopathy given rapid resolution. Was on rifaximin BID and lactulose during hospital stay which helped patient. NOW THAT PATIENT IMPROVED. will continue lactulose as outpatient with a goal of 2-3 stools per day.. (2) Kidney stone on right side: Suprapubic pain on exam. Resolved. Appreciate urology recommendation. will have her followup with urology as an outpatient. 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 troponins x 3 wnl (9) Abdominal pain: UA/micro + culture (10) Liver cancer: [place] [facility] in the last 1-2 months has 9mm nodule in the right lobe - uncertain if that is the location of cancer or not she will need f[place] [facility] [place] discharge from here will defer to PCP (11) DVT prophylaxis: SCDs only in light of thrombocytopenia now that patient is more awake/alert PT recommending home health (12) Discharge planning issues: Physical therapy seen and recommend home with home health. Total Time Total Time Spent Total Time Spent (In Minutes): 35 Discharge Plan Discharge Items Patient Disposition: Home - Home Health Services Reason For Visit: HEPATIC ENCEPHALOPATHY Discharge Diagnosis: hepatic encephalopathy Activity: Resume your previous activity Non-emergency contact: Primary Care Provider Call non-emergency contact if: you have any medication questions Follow-up/Referrals: Bong Aguilar MD [Physician] - 07/05/19 2:30 pm (follow up appointment with the urologist) Laila Thakkar MD [Primary Care Provider] - 06/26/19 11:30 am (follow up a ppointment with your primary care physician) Diet: Carb Consistent or DM2 Addtl Attending Provider Instructions: You have been hospitalized for an acute medical problem. During your stay at [facility], we have made an effort to correct the problem that brought you to the hospital while keeping you as comfortable as possible. Medications were used to bring your condition under control and your discharge instructions will include directions for any medications you should take after leaving the hospital. Please make sure you see your Primary Care Provider as part of your follow up plan. Followup with Urology for kidney stones. will continue lactulose, titrate dose between 2-4 doses a day for a goal of 2-3 bowel movements a day Pending Studies at Discharge: No Stand-Alone Forms: [facility], Smoking Cessation Medications and DC Order Prescriptions: New lactulose 20 gram/30 mL Solution 2 gm PO QID Qty: 3000 RF: 0 Continued docusate sodium [Colace] 100 mg capsule 200 mg PO DAILY Qty: 60 RF: 5 gabapentin 300 mg capsule 300 mg PO BID Qty: 60 RF: 5 Novolog Flexpen U-100 Insulin 100 unit/mL (3 mL) insulin pen See Rx Instructions SUBCUT .COMPLEX Qty: 15 RF: 1 lactulose [Enulose] 10 gram/15 mL solution 30 ml PO DIRECTED PRN (Reason: elevated ammmonia ) Qty: 1892 RF: 5 atorvastatin 20 mg tablet 20 mg PO HS Qty: 90 RF: 0 furosemide 20 mg tablet 40 - 60 mg PO DAILY PRN (Reason: Edema) Qty: 90 RF: 0 cholecalciferol (vitamin D3) 2,000 unit Capsule 2,000 unit PO QAM RF: 0 nadolol 20 mg tablet 20 mg PO DAILY RF: 0 pantoprazole 40 mg tablet,delayed release (DR/EC) 40 mg PO BIDM RF: 0 ropinirole 0.5 mg tablet 0.5 mg PO HS RF: 0 folic acid 1 mg tablet 1 mg PO DAILY RF: 0 escitalopram oxalate 10 mg tablet 10 mg PO HS RF: 0 Refresh Liquigel 1 % Drops, Liquid Gel 1 drp OPB DAILY RF: 0 Basaglar KwikPen U-100 Insulin 100 unit/mL (3 mL) Insulin Pen 40 unit SUBCUT BID RF: 0 magnesium oxide 400 mg (241.3 mg magnesium) tablet 400 mg PO DAILY RF: 0 ferrous sulfate 325 mg (65 mg iron) tablet 325 mg PO BIDM RF: 0 Discontinued Xifaxan 550 mg tablet 550 mg PO BID Qty: 60 RF: 0 aspirin [Aspirin Low Dose] 81 mg Tablet,Delayed Release (Dr/Ec) 81 mg PO QAM RF: 0 No Action (DME) lancets 30 gauge misc See Dose Instructions .ROUTE .MEDSUPPLY RF: 0 Discharge Orders: Discharge Order (Routine); Ordered 06/20/19 Ordered By: Dwaine Ventura/Other Patient Handouts: Diabetes Group Home Complications, Diabetes Healthy Meals, Diabetes Carbs, Diabetes Exercise Benefits, Diabetes Exercise Get Started, Diabetes Activity Tips, Diabetes Living Life, A1C Admission Data Admit Date/Time: 06/15/19 13:37 Attending Provider: Dwaine Jeffrey Admit Provider: Leena Guzmán Primary Care Provider: Laila Thakkar Other Providers: Alton Walsh ; [facility],Home Healthcare Other Interventions: Discharge Summary Assessment (RN) Last Done: 06/20/19 16:17 DC Date/Time DO NOT enter until pt leaves facility: 06/20/19 17:55
== END 2019-06-20 17:55 | disposition home health service (06) | DRG 442 ==
LOC: ED 09:33 → 2S 13:37 → SUATTDRO 13:37 → 2S 14:21 → 3W 06-17 18:02

== ENCOUNTER 2019-07-17 23:00 | Inpatient (IN) ==
[2019-07-17] MEDS: SODIUM CHLORIDE 0.9% 1000ML 1,000 ML IV SCH (23:54)
[2019-07-18 00:01] LABS: Hematocrit (blood only) 28.2 % (37-47); Mean Corpuscular Hgb Conc 35.5 g/dL (32-36); Mean Corpuscular Volume 101.4 fL (80-100); RDW Coefficient of Variation 14.2 % (11.5-14.5); RDW Standard Deviation 52.9 fL (36.4-46.3); Red Blood Count 2.78 M/uL (4.2-5.4); White Blood Count 4.19 K/uL (4.8-10.8)
[2019-07-18 00:15] LABS: INR 1.3 (0.9-1.1); Prothrombin Time 13.5 Seconds (9.0-12.0)
[2019-07-18 00:17] LABS: Alanine Aminotransferase 41 U/L (12-78); Albumin Level 2.3 gm/dl (3.4-5.0); Aspartate Aminotransferase 55 U/L (15-37); BUN Creatinine Ratio 17.8 (10-20); Blood Urea Nitrogen 18 mg/dl (7-18); Calcium 8.5 mg/dl (8.5-10.1); Carbon Dioxide 27 mmol/L (21-32); Chloride 112 mmol/L (98-107); Creatinine Clr Calc Pharmacy 50.1 ml/min; Est GFR (African American) 64.2; Est GFR (Non-African American) 55.4; Glucose 220 mg/dl (70-99); Lipase 289 U/L (73-393); Potassium 3.1 mmol/L (3.5-5.1); Sodium 144 mmol/L (136-145)
[2019-07-18 00:28] LABS: Mean Platelet Volume 10.9 fL (7.4-10.4); Platelet Count 57 K/uL (130-400)
[2019-07-18 00:28] LABS: Albumin Globulin Ratio 0.6 (0.9-2); Alkaline Phosphatase 111 U/L (45-117); Globulin 3.9 gm/dl (2.5-4.0); Total Protein 6.2 gm/dl (6.4-8.2); Troponin I < 0.015 ng/ml (0-0.045)
[2019-07-18 00:34] LABS: Basophils # (auto) 0.02 K/uL (0-0.2); Basophils % (auto) 0.5 %; Eosinophils # (auto) 0.18 K/uL (0-0.5); Eosinophils % (auto) 4.3 %; Immature Granulocytes # (auto) 0.01 K/uL (0.00-0.02); Immature Granulocytes % (auto) 0.2 %; Lymphocytes # (auto) 1.37 K/uL (1.2-3.4); Lymphocytes % (auto) 32.7 %; Monocytes # (auto) 0.38 K/uL (0.11-0.59); Monocytes % (auto) 9.1 %; Neutrophils # (auto) 2.23 K/uL (1.4-6.5); Neutrophils % (auto) 53.2 %
[2019-07-18 00:51] LABS: Appearance Urine Clear (Clear); Bacteria Urine Automated Negative (Negative); Bilirubin Urine Negative (Negative); Blood Urine 2+ (Negative); Color Urine Yellow; Glucose Urine UA Trace (Negative); Ketones Urine Negative (Negative); Leukocyte Esterase Urine Trace (Negative); Nitrite Urine Negative (Negative); Protein Urine Negative (Negative); Specific Gravity Urine 1.012 (1.000-1.030); Urobilinogen Urine Negative (Negative); pH Urine 6.5 (4.5-7.5)
[2019-07-18] MEDS ORDERED: POTASSIUM CHLORIDE PWD 20 MEQ PACK PO STA (00:54)
[2019-07-18] MEDS ORDERED: IOVERSOL 100ml IV PRN (00:55)
--- NOTE | 2019-07-18 02:20 | Emergency Department Note ---
Entered by Sourav Irvin acting as a scribe for History of Present Illness General Chief complaint: Altered Mental Status Stated complaint: ALTERED MENTAL STATUS Time Seen by Provider: 07/17/19 23:16 Source: patient and family Limitations: altered mental status History of Present Illness Pain Consistency: + intermittent The patient is a 68 y/o female who presents to the ED w/ CC of an intermittent altered mental status beginning 2 days ago. The patient's son states the patient has intermittently not known where she is for the past two days. He reports her symptoms worsened this evening, so he brought her to the ER. The son notes he thinks the patient's ammonia level is elevated again because she presented to the ER a month ago with very similar symptoms. He states the patient was in the hospital for almost a week. The son reports the patient has a gallstone and was supposed to have it removed this Wednesday. He notes the patient was supposed to have it done sooner, but the surgeon was booked up. The son states the patient did not have the MRI that she was supposed to have because of being in the hospital. He reports she was supposed to have the MRI to see if she has liver cancer. The son notes the patient fell Wednesday night and may have slightly hit her head when she landed on her back. He states she uses a cane or walker when walking, and he believes she hit something and then fell backwards. The son reports the patient is still taking her lactulose and rifaximin. He denies soreness, vomiting, nausea, fevers, and changes in her appetite. He notes she is keeping up with her fluids. The patient notes she is mildly short of breath and has mild abdominal pain. HPI limited secondary to the patient's AMS. Home Medications Home Medications Medication Instructions Recorded Confirmed Type cholecalciferol (vitamin D3) 2,000 unit PO QAM 04/13/18 07/17/19 History docusate sodium 100 mg capsule 200 mg PO DAILY #60 cap 02/08/19 07/17/19 Rx gabapentin 300 mg capsule 300 mg PO BID #60 cap 03/01/19 07/17/19 Rx Refresh Liquigel 1 drp OPB DAILY 04/14/19 07/18/19 History ferrous sulfate 325 mg PO BIDM 04/14/19 07/17/19 History magnesium oxide 400 mg PO DAILY 04/14/19 07/17/19 History lancets 30 gauge ea 04/19/19 07/05/19 History insulin aspart U-100 100 unit/mL See Rx Instructions SUBCUT 04/21/19 07/17/19 Rx (3 mL) subcutaneous pen .COMPLEX #15 ml lactulose 10 gram/15 mL oral 30 ml PO DIRECTED PRN #1892 ml 05/17/19 07/17/19 Rx solution escitalopram oxalate 10 mg PO HS 06/15/19 07/17/19 History folic acid 1 mg PO DAILY 06/15/19 07/17/19 History nadolol 20 mg PO QPM 06/15/19 07/17/19 History pantoprazole 40 mg PO BIDM 06/15/19 07/17/19 History ropinirole 0.5 mg PO HS 06/15/19 07/17/19 History lactulose 2 gm PO QID #3000 ml 06/20/19 07/17/19 Rx atorvastatin 20 mg tablet 20 mg PO HS #90 tab 06/26/19 07/17/19 Rx pen needle, diabetic 32 gauge x #100 ea 06/26/19 07/05/19 Rx " furosemide 20 mg tablet See Rx Instructions .ROUTE 07/11/19 07/17/19 Rx .COMPLEX #60 tablet insulin glargine 100 unit/mL (3 See Rx Instructions .ROUTE 07/12/19 07/17/19 Rx mL) subcutaneous pen .COMPLEX #15 milliliter rifaximin [Xifaxan] 550 mg PO BID 07/12/19 07/18/19 History Allergies Allergy/AdvReac Type Severity Reaction Status Date / Time methyl salicylate Allergy Mild RASH Verified 07/17/19 23:24 nickel Allergy Mild RASH Verified 07/17/19 23:24 zinc Allergy Mild RASH Verified 07/17/19 23:24 diphenhydramine AdvReac Intermediate BURNING Verified 07/17/19 23:24 EYES,DIZZY,BLISTERS Past Med/Surg History Medical History Anxiety Chronic back pain Cirrhosis FOLLOWS W/ [facility], MELD score 10. COPD (chronic obstructive pulmonary disease) (Chronic) Uses recuse inhaler ~ once/month Depression Diabetes mellitus, type 2 IDDM Esophageal varices Per EGD 11/30/2018: Nonbleeding grade 1 and small (<5 mm) esophageal varices. Hyperlipidemia Kidney stones Liver cancer DX 1-2 MONTHS AGO Migraine Neuropathy Osteoarthritis Pancytopenia (Acute) Poor historian Shortness of breath on exertion Skin cancer of face Sleep apnea PT UNABLE TO CONFIRM, DOES NOT USE ASSISTIVE DEVICE HS Surgical History History of arthroscopy of left shoulder History of arthroscopy of right knee History of bilateral cataract extraction History of carpal tunnel surgery of left wrist History of lithotripsy History of Mohs micrographic surgery for skin cancer History of tonsillectomy and adenoidectomy History of tooth extraction all teeth removed History of total abdominal hysterectomy and bilateral salpingo-oophorectomy Family History Brother Family history of diabetes mellitus Sister Family history of diabetes mellitus Other Family history non-contributory No family history of adverse response to anesthesia Social History Preferred Language: Micronesian Communication Ability: Effective Visual Impairment: No Limitations Director Of Recruiting Required: No Beliefs That Will Affect Care: None Current Living Situation: Family Current Living Situation Comment: LIVES WITH SON Feels Safe at Home: Declines to Answer Smoking Status: Former smoker Second Hand Exposure: No ; Hx Alcohol Use: No (QUIT 2004) Hx Substance Use: No Review of Systems Other (ROS limited secondary to the patient's AMS.) Physical Exam Vital Signs Vital Signs - 24 hr 07/17/19 23:06 07/17/19 23:15 07/17/19 23:30 Temperature 36.7 C Temperature Source Oral Pulse Rate 60 60 59 L Pulse Rate from SpO2 Sensor 61 58 L Pulse Rhythm Regular Pulse Strength Normal Respiratory Rate 18 16 15 Respiratory Effort / Characteristics Non-Labored Spontaneous Respiratory Depth Normal Respiratory Pattern Regular Blood Pressure 144/69 H 141/61 H 130/58 L Blood Pressure Mean 94 108 97 Blood Pressure Position Sitting Pulse Oximetry 99 100 99 Oxygen Delivery Method Room Air Room Air Room Air Sepsis Recent Fever Within 48 Hours No Sepsis Action Taken by Nursing No Action Required 07/18/19 00:00 07/18/19 00:30 07/18/19 01:30 Temperature Temperature Source Pulse Rate 58 L 61 Pulse Rate from SpO2 Sensor 58 L 58 L 62 Pulse Rhythm Pulse Strength Respiratory Rate 16 15 Respiratory Effort / Characteristics Respiratory Depth Respiratory Pattern Blood Pressure 127/52 L 129/53 L 122/58 L Blood Pressure Mean 70 95 87 Blood Pressure Position Pulse Oximetry 100 100 98 Oxygen Delivery Method Room Air Room Air Room Air Sepsis Recent Fever Within 48 Hours Sepsis Action Taken by Nursing 07/18/19 02:00 07/18/19 02:30 07/18/19 03:00 Temperature Temperature Source Pulse Rate 59 L 60 61 Pulse Rate from SpO2 Sensor 60 61 62 Pulse Rhythm Pulse Strength Respiratory Rate 15 19 17 Respiratory Effort / Characteristics Respiratory Depth Respiratory Pattern Blood Pressure 114/62 126/54 L 125/60 Blood Pressure Mean 93 84 101 Blood Pressure Position Pulse Oximetry 100 100 100 Oxygen Delivery Method Room Air Room Air Room Air Sepsis Recent Fever Within 48 Hours Sepsis Action Taken by Nursing 07/18/19 03:30 Temperature Temperature Source Pulse Rate 59 L Pulse Rate from SpO2 Sensor 59 L Pulse Rhythm Pulse Strength Respiratory Rate 17 Respiratory Effort / Characteristics Respiratory Depth Respiratory Pattern Blood Pressure 124/59 L Blood Pressure Mean 91 Blood Pressure Position Pulse Oximetry 100 Oxygen Delivery Method Room Air Sepsis Recent Fever Within 48 Hours Sepsis Action Taken by Nursing GENERAL: alert, somnolent but arousable, no distress, non-toxic EYE EXAM: normal conjunctiva, PERRL and EOM's grossly intact OROPHARYNX: no exudate, no erythema, lips, buccal mucosa, and tongue normal and mucous membranes are moist NECK: supple, no nuchal rigidity, no adenopathy, non-tender LUNGS: Clear to auscultation. Normal chest wall mechanics, no w/r/r HEART: no murmurs, S1 normal and S2 normal ABDOMEN: abdomen soft, non-tender, normo-active bowel sounds, no masses, no rebound or guarding. BACK: Back is symmetrical on inspection and there is no deformity, no midline tenderness, no CVA tenderness. SKIN: no rashes and no bruising UPPER EXTREMITIES: upper extremities are grossly normal. Nml pulses b/l, no evidence of trauma. LOWER EXTREMITIES: No pitting edema. Nml pulses b/l, no evidence of trauma. NEURO EXAM: Patient follows simple commands and oriented to place only. Course Course 2321: Past medical records reviewed. The patient was evaluated in room B02. A complete history and physical exam was performed. 0139: Upon reevaluation, the patient is resting comfortably. I discussed laboratory and radiographic results with the patient's son. He verbalized agreement of the treatment plan. The patient will be evaluated for further ma nagement and care. 0147: I reviewed the patient's case with Dr. Garrett, [facility] Hospitalist. She will evaluate the patient for further management. Administered Medications Sodium Chloride (Nss 1000ml) 1,000 mls @ 125 mls/hr IV .Q8H MELVI Stop: 08/16/19 23:29 Last Admin: 07/17/19 23:54 Dose: 125 mls/hr Documented by: [id number] Ioversol (Optiray 320 100ml) 100 ml IV ONCE PRN PRN Reason: Interaction Checking Stop: 07/22/19 00:54 Last Admin: 07/18/19 00:55 Dose: 93 ml Documented by: [id number] Discontinued Medications Potassium Chloride (Klor-Con Pwd) 40 meq PO NOW STA Stop: 07/18/19 00:55 Last Admin: 07/18/19 01:32 Dose: 40 meq Documented by: [id number] Medical Decision Making Differential Diagnosis Differential diagnoses includes but is not limited to toxic, metabolic, infectious, traumatic, cardiac, neurologic, hematologic, psychiatric and inflammatory etiologies. Medical Records Attestation: I reviewed the patient's medical records. Home Medications Current Medication List: was personally reviewed by me Laboratory Data Attestation: I reviewed the patient's lab results. Result diagrams: 07/17/19 23:46 07/17/19 23:45 Lab Results 07/17/19 07/17/19 07/17/19 Range/Units 23:40 23:45 23:45 WBC (4.8-10.8) K/uL RBC (4.2-5.4) M/uL Hgb (12.0-16.0) g/dL Hct (37-47) % MCV (80-100) fL MCH (25-34) pg MCHC (32-36) g/dL RDW Std Deviation (36.4-46.3) fL RDW Coeff of Chloe (11.5-14.5) % Plt Count (130-400) K/uL MPV (7.4-10.4) fL Immature Gran % (Auto) % Neut % (Auto) % Lymph % (Auto) % [place] % (Auto) % Eos % (Auto) % Baso % (Auto) % Immature Gran # (Auto) (0.00-0.02) K/uL Neut # (Auto) (1.4-6.5) K/uL Lymph # (Auto) (1.2-3.4) K/uL [place] # (Auto) (0.11-0.59) K/uL Eos # (Auto) (0-0.5) K/uL Baso # (Auto) (0-0.2) K/uL PT 13.5 H (9.0-12.0) Seconds INR 1.3 H (0.9-1.1) Sodium 144 (136-145) mmol/L Potassium 3.1 L (3.5-5.1) mmol/L Chloride 112 H (98-107) mmol/L Carbon Dioxide 27 (21-32) mmol/L Anion Gap 5.0 (3-11) BUN 18 (7-18) mg/dl Creatinine 1.03 (0.6-1.2) mg/dl Est Cr Clr Drug Dosing 50.1 ml/min Est GFR ( Amer) 64.2 Est GFR (Non-Af Amer) 55.4 BUN/Creatinine Ratio 17.8 (10-20) Glucose 220 H (70-99) mg/dl POC Lactic Acid Bran (0.90-1.70) mmol/L Calcium 8.5 (8.5-10.1) mg/dl Magnesium 2.0 (1.8-2.4) mg/dl Total Bilirubin 1.0 (0.2-1) mg/dl AST 55 H (15-37) U/L ALT 41 (12-78) U/L Alkaline Phosphatase 111 (45-117) U/L Ammonia (11-32) umol/L Troponin I < 0.015 (0-0.045) ng/ml Total Protein 6.2 L (6.4-8.2) gm/dl Albumin 2.3 L (3.4-5.0) gm/dl Globulin 3.9 (2.5-4.0) gm/dl Albumin/Globulin Ratio 0.6 L (0.9-2) Lipase 289 (73-393) U/L Procalcitonin (0-0.5) ng/ml TSH 4.980 H (0.300-4.500) uIu/ml Urine Color Urine Appearance (Clear) Urine pH (4.5-7.5) Ur Specific [place] (1.000-1.030) Urine Protein (Negative) Urine Glucose (UA) (Negative) Urine Ketones (Negative) Urine Blood (Negative) Urine Nitrite (Negative) Urine Bilirubin (Negative) Urine Urobilinogen (Negative) Ur Leukocyte Esterase (Negative) Urine WBC (Auto) (0-5) /hpf Urine RBC (Auto) (0-4) /hpf U Hyaline Cast (Auto) (0-5) /lpf U Epithel Cells (Auto) (0-5) /lpf Urine Bacteria (Auto) (Negative) Ethyl Alcohol mg/dL < 3.0 (0-3) mg/dl 07/17/19 07/17/19 07/17/19 Range/Units 23:45 23:45 23:46 WBC 4.19 L (4.8-10.8) K/uL RBC 2.78 L (4.2-5.4) M/uL Hgb 10.0 L (12.0-16.0) g/dL Hct 28.2 L (37-47) % MCV 101.4 H (80-100) fL MCH 36.0 H (25-34) pg MCHC 35.5 (32-36) g/dL RDW Std Deviation 52.9 H (36.4-46.3) fL RDW Coeff of Chloe 14.2 (11.5-14.5) % Plt Count 57 L (130-400) K/uL MPV 10.9 H (7.4-10.4) fL Immature Gran % (Auto) 0.2 % Neut % (Auto) 53.2 % Lymph % (Auto) 32.7 % Meigs % (Auto) 9.1 % Eos % (Auto) 4.3 % Baso % (Auto) 0.5 % Immature Gran # (Auto) 0.01 (0.00-0.02) K/uL Neut # (Auto) 2.23 (1.4-6.5) K/uL Lymph # (Auto) 1.37 (1.2-3.4) K/uL [place] # (Auto) 0.38 (0.11-0.59) K/uL Eos # (Auto) 0.18 (0-0.5) K/uL Baso # (Auto) 0.02 (0-0.2) K/uL PT (9.0-12.0) Seconds INR (0.9-1.1) Sodium (136-145) mmol/L Potassium (3.5-5.1) mmol/L Chloride (98-107) mmol/L Carbon Dioxide (21-32) mmol/L Anion Gap (3-11) BUN (7-18) mg/dl Creatinine (0.6-1.2) mg/dl Est Cr Clr Drug Dosing ml/min Est GFR ( Amer) Est GFR (Non-Af Amer) BUN/Creatinine Ratio (10-20) Glucose (70-99) mg/dl POC Lactic Acid Bran (0.90-1.70) mmol/L Calcium (8.5-10.1) mg/dl Magnesium (1.8-2.4) mg/dl Total Bilirubin (0.2-1) mg/dl AST (15-37) U/L ALT (12-78) U/L Alkaline Phosphatase (45-117) U/L Ammonia 99.9 H (11-32) umol/L Troponin I (0-0.045) ng/ml Total Protein (6.4-8.2) gm/dl Albumin (3.4-5.0) gm/dl Globulin (2.5-4.0) gm/dl Albumin/Globulin Ratio (0.9-2) Lipase (73-393) U/L Procalcitonin 0.09 (0-0.5) ng/ml TSH (0.300-4.500) uIu/ml Urine Color Urine Appearance (Clear) Urine pH (4.5-7.5) Ur Specific [place] (1.000-1.030) Urine Protein (Negative) Urine Glucose (UA) (Negative) Urine Ketones (Negative) Urine Blood (Negative) Urine Nitrite (Negative) Urine Bilirubin (Negative) Urine Urobilinogen (Negative) Ur Leukocyte Esterase (Negative) Urine WBC (Auto) (0-5) /hpf Urine RBC (Auto) (0-4) /hpf U Hyaline Cast (Auto) (0-5) /lpf U Epithel Cells (Auto) (0-5) /lpf Urine Bacteria (Auto) (Negative) Ethyl Alcohol mg/dL (0-3) mg/dl 07/17/19 07/18/19 Range/Units 23:47 00:15 WBC (4.8-10.8) K/uL RBC (4.2-5.4) M/uL Hgb (12.0-16.0) g/dL Hct (37-47) % MCV (80-100) fL MCH (25-34) pg MCHC (32-36) g/dL RDW Std Deviation (36.4-46.3) fL RDW Coeff of Chloe (11.5-14.5) % Plt Count (130-400) K/uL MPV (7.4-10.4) fL Immature Gran % (Auto) % Neut % (Auto) % Lymph % (Auto) % [place] % (Auto) % Eos % (Auto) % Baso % (Auto) % Immature Gran # (Auto) (0.00-0.02) K/uL Neut # (Auto) (1.4-6.5) K/uL Lymph # (Auto) (1.2-3.4) K/uL [place] # (Auto) (0.11-0.59) K/uL Eos # (Auto) (0-0.5) K/uL Baso # (Auto) (0-0.2) K/uL PT (9.0-12.0) Seconds INR (0.9-1.1) Sodium (136-145) mmol/L Potassium (3.5-5.1) mmol/L Chloride (98-107) mmol/L Carbon Dioxide (21-32) mmol/L Anion Gap (3-11) BUN (7-18) mg/dl Creatinine (0.6-1.2) mg/dl Est Cr Clr Drug Dosing ml/min Est GFR ( Amer) Est GFR (Non-Af Amer) BUN/Creatinine Ratio (10-20) Glucose (70-99) mg/dl POC Lactic Acid Bran 1.49 (0.90-1.70) mmol/L Calcium (8.5-10.1) mg/dl Magnesium (1.8-2.4) mg/dl Total Bilirubin (0.2-1) mg/dl AST (15-37) U/L ALT (12-78) U/L Alkaline Phosphatase (45-117) U/L Ammonia (11-32) umol/L Troponin I (0-0.045) ng/ml Total Protein (6.4-8.2) gm/dl Albumin (3.4-5.0) gm/dl Globulin (2.5-4.0) gm/dl Albumin/Globulin Ratio (0.9-2) Lipase (73-393) U/L Procalcitonin (0-0.5) ng/ml TSH (0.300-4.500) uIu/ml Urine Color Yellow Urine Appearance Clear (Clear) Urine pH 6.5 (4.5-7.5) Ur Specific [place] 1.012 (1.000-1.030) Urine Protein Negative (Negative) Urine Glucose (UA) Trace H (Negative) Urine Ketones Negative (Negative) Urine Blood 2+ H (Negative) Urine Nitrite Negative (Negative) Urine Bilirubin Negative (Negative) Urine Urobilinogen Negative (Negative) Ur Leukocyte Esterase Trace H (Negative) Urine WBC (Auto) 1-5 (0-5) /hpf Urine RBC (Auto) 5-10 H (0-4) /hpf U Hyaline Cast (Auto) 1-5 (0-5) /lpf U Epithel Cells (Auto) 5-10 H (0-5) /lpf Urine Bacteria (Auto) Negative (Negative) Ethyl Alcohol mg/dL (0-3) mg/dl Imaging Data Attestation: I personally reviewed and interpreted this imaging study as follow s: My Impression: XR chest 1V portable: No cardiomegaly, no effusion, no wide mediastinum, no focal consolidation, no acute pulmonary edema. Radiologist's Impression: Radiology results as stated below per my review and the [facility] radiologist's interpretation: CT ABDOMEN & PELVIS With Contrast: Cholelithiasis. Query cirrhosis. Splenomegaly. Complex renal cysts or solid lesions, the largest measures approximately 3.8 cm in the left kidney. 4 x 7 mm stone in the right proximal ureter with mild obstructive changes. Nephrolithiasis. Appendix not identified. Hysterectomy. Anasarca. Basilar atelectasis/pneumonitis. Radiologist: Radha Farah M.D. Study ready at 01:02 and initial results transmitted at 01:33 CT HEAD: No acute intracranial process. Involutional changes. Cataract surgery. Expanded sella. Radiologist: Radha Farah M.D. Study ready at 00:52 and initial results transmitted at 01:17 ECG Data Attestation: I personally reviewed and interpreted this ECG as follows: Indication: + altered mental status Rate (beats per minute): 60 Rhythm: + sinus rhythm ECG Intervals/blocks: + Normal QRS ECG [place]: + Normal ECG ST segments: + T-wave inversions (V1-V4); no ST elevation ECG Findings: + Other (Prlonged QTc) Comparison ECG Date: from (06/15/2019) Change: the following changes noted Additional Comments: TWI are worse than previous. Blood Pressure Blood Pressure Findings: Low blood pressure Blood Pressure Disposition: further management by hospitalist MDM Narrative Pt here appears similar to presentation last month for similar complaint. Pt found to have elevated ammonia level tonight, other labs appear stable compared to baseline. Pt with known VELEZ cirrhosis and on appropriate meds. Due to complaint of abdominal pain, CT performed which shows previously seen cholelithiasis as well as known ureterolithiasis. No evidence of UTI or acute renal dysfunction. No evidence of acute infectious etiology. Vital signs stable in the emergency room. Case discussed with hospitalist for additional evaluation and management. Potassium repleted while in the emergency room. Impression & Plan Altered mental status, Cholelithiasis, Cirrhosis of liver, Hepatic ence phalopathy, Anemia, Ureterolithiasis, Thrombocytopenia, Hypokalemia, Hypophosphatemia Discharge Plan Visit Data Chief Complaint: Altered Mental Status Stated Complaint: ALTERED MENTAL STATUS ED Provider: Henrietta Up Discharge Problem: Altered mental status, Cholelithiasis, Cirrhosis of liver, Hepatic encephalopathy, Anemia, Ureterolithiasis, Thrombocytopenia, Hypokalemia, Hypophosphatemia Patient Disposition: Being Evaluated by Hospitalist Forms Stand Alone Forms: My [employer] Prescriptions Prescriptions: No Action docusate sodium [Colace] 100 mg capsule 200 mg PO DAILY Qty: 60 RF: 5 gabapentin 300 mg capsule 300 mg PO BID Qty: 60 RF: 5 Novolog Flexpen U-100 Insulin 100 unit/mL (3 mL) insulin pen See Rx Instructions SUBCUT .COMPLEX Qty: 15 RF: 1 lactulose [Enulose] 10 gram/15 mL solution 30 ml PO DIRECTED PRN (Reason: elevated ammmonia ) Qty: 1892 RF: 5 furosemide 20 mg tablet See Rx Instructions .ROUTE .COMPLEX Qty: 60 RF: 11 insulin glargine [Basaglar KwikPen U-100 Insulin] 100 unit/mL (3 mL) insulin pen See Rx Instructions .ROUTE .COMPLEX Qty: 15 RF: 11 (DME) lancets 30 gauge misc See Dose Instructions .ROUTE .MEDSUPPLY RF: 0 atorvastatin 20 mg tablet 20 mg PO HS Qty: 90 RF: 0 (DME) pen needle, diabetic [BD Teressa 2nd Gen Pen Needle] 32 gauge x 5/32" needle See Rx Instructions .ROUTE .MEDSUPPLY Qty: 100 RF: 0 cholecalciferol (vitamin D3) 2,000 unit Capsule 2,000 unit PO QAM RF: 0 nadolol 20 mg tablet 20 mg PO QPM RF: 0 pantoprazole 40 mg tablet,delayed release (DR/EC) 40 mg PO BIDM RF: 0 ropinirole 0.5 mg tablet 0.5 mg PO HS RF: 0 folic acid 1 mg tablet 1 mg PO DAILY RF: 0 escitalopram oxalate 10 mg tablet 10 mg PO HS RF: 0 lactulose 20 gram/30 mL Solution 2 gm PO QID Qty: 3000 RF: 0 Refresh Liquigel 1 % Drops, Liquid Gel 1 drp OPB DAILY RF: 0 magnesium oxide 400 mg (241.3 mg magnesium) tablet 400 mg PO DAILY RF: 0 ferrous sulfate 325 mg (65 mg iron) tablet 325 mg PO BIDM RF: 0 Xifaxan 550 mg tablet 550 mg PO BID RF: 0 Referrals Referrals: Laila Thakkar MD [Primary Care Provider] - Discharge Problem: Altered mental status Qualifiers: Altered mental status type: unspecified Qualified Code(s): R41.82 - Altered mental status, unspecified Cholelithiasis Qualifiers: Cholelithiasis location: gallbladder Cholecystitis presence: without c holecystitis Biliary obstruction: without biliary obstruction Qualified Code(s): K80.20 - Calculus of gallbladder without cholecystitis without obstruction Cirrhosis of liver Qualifiers: Hepatic cirrhosis type: other cirrhosis Qualified Code(s): K74.69 - Other cirrhosis of liver Anemia Qualifiers: Anemia type: unspecified type Qualified Code(s): D64.9 - Anemia, unspecified The scribe's documentation has been prepared under my direction and personally reviewed by me in its entirety. I confirm that the note above accurately reflects all work, treatment, procedures, and medical decision making performed by me.
--- NOTE | 2019-07-18 03:30 | History & Physical Report ---
Date of Service July 18, 2019 Assessment & Plan (1) Hepatic encephalopathy: Ms. Rangel is a 68 year old female with a past medical history of nonalcoholic liver cirrhosis, liver cancer, esophageal varices, type 2 diabetes mellitus, COPD, GERD, restless leg syndrome, dyslipidemia, and depression who presented to [facility] due to lethargy and altered mental status ED course: 1 L normal saline at 125 mLs per hour, 40 M EQ potassium chloride Altered mental status secondary to hepatic encephalopathy -Admit to med/surg -CT head negative -AMS likely secondary to hyperammonemia, with a ammonia level of 99.9 -Continue home lactulose and rifaximin, titrate up to achieve 2-3 bowel movements per day -No signs or symptoms of infection at this time, unsure what precipitated hepatic encephalopathy Liver cirrhosis/Liver cancer -Follows with [facility] -Not yet undergoing treatment for her liver cancer -Has a history of esophageal varices, continue nadolol Hypokalemia -Potassium 3.1 on admission, repleted -Recheck BMP tomorrow Ureterolithiasis -CT abdomen pelvis showed a 4 x 7 mm stone in the right proximal ureter with mild obstructive changes -Patient was meant to see urology in clinic on Wednesday for lithotripsy -UA negative -will consult urology Pancytopenia -Secondary to liver disease, blood counts stable -No signs or symptoms of active bleeding Elevated TSH -TSH 4.9 on admission, will check free T4 Hypercholesterolemia -continue home atorvastatin Depression -continue home escitalopram Type 2 diabetes mellitus -Decrease home glargine from 40 units twice daily to 20 units twice daily given poor p.o. intake because of AMS -Placed on insulin sliding scale with BSG AC/HS Restless leg syndrome -Continue home ropinirole CODE STATUS: Full DVT prophylaxis: SCDs given thrombocytopenia Disposition: Admit to med/surg (2) Cirrhosis of liver: (3) Cholelithiasis: (4) Anemia: (5) Ureterolithiasis: (6) Thrombocytopenia: (7) Hypokalemia: (8) Hypophosphatemia: (9) Diabetes: (10) HTN (hypertension): (11) COPD (chronic obstructive pulmonary disease): History of Present Illness Chief Complaint: Lethargy, confusion Primary Care Provider: Laila Thakkar MD Ms. Rangel is a 68 year old female with a past medical history of nonalcoholic liver cirrhosis, liver cancer, esophageal varices, type 2 diabetes mellitus, COPD, GERD, restless leg syndrome, dyslipidemia, and depression who presented to [facility] due to lethargy and altered mental status. History is largely provided by her son, as Ms. Rangel is currently disoriented. Per her son, he noticed that approximately 2 days ago she became confused and was unsure where she was. He states that this was very similar to her behavior prior to her presentation to [facility] last month, when she was admitted for hepatic encephalopathy. He states that he administers her medication, and reports that she has been compliant. He states that she has not had any fever or chills at home, or exhibited a cough or breathing difficulties. He does note that she has kidney stones, and has seen urology in clinic. She is meant to follow-up with them on Wednesday for lithotripsy. With regards to her liver cancer, this was diagnosed recently, she follows with [facility]. She has not yet started treatment, but her son states that they are thinking about beginning radiation. She reportedly was a heavy drinker in the past, as well as a smoker, however quit both of these 15 years ago. Allergies Allergy/AdvReac Type Severity Reaction Status Date / Time methyl salicylate Allergy Mild RASH Verified 07/17/19 23:24 nickel Allergy Mild RASH Verified 07/17/19 23:24 zinc Allergy Mild RASH Verified 07/17/19 23:24 diphenhydramine AdvReac Intermediate BURNING Verified 07/17/19 23:24 EYES,DIZZY,BLISTERS Home Medications Home Medications Medication Instructions Recorded Confirmed Type cholecalciferol (vitamin D3) 2,000 unit PO QAM 04/13/18 07/17/19 History docusate sodium 100 mg capsule 200 mg PO DAILY #60 cap 02/08/19 07/17/19 Rx gabapentin 300 mg capsule 300 mg PO BID #60 cap 03/01/19 07/17/19 Rx Refresh Liquigel 1 drp OPB DAILY 04/14/19 07/18/19 History ferrous sulfate 325 mg PO BIDM 04/14/19 07/17/19 History magnesium oxide 400 mg PO DAILY 04/14/19 07/17/19 History lancets 30 gauge ea 04/19/19 07/05/19 History insulin aspart U-100 100 unit/mL See Rx Instructions SUBCUT 04/21/19 07/17/19 Rx (3 mL) subcutaneous pen .COMPLEX #15 ml lactulose 10 gram/15 mL oral 30 ml PO DIRECTED PRN #1892 ml 05/17/19 07/17/19 Rx solution escitalopram oxalate 10 mg PO HS 06/15/19 07/17/19 History folic acid 1 mg PO DAILY 06/15/19 07/17/19 History nadolol 20 mg PO QPM 06/15/19 07/17/19 History pantoprazole 40 mg PO BIDM 06/15/19 07/17/19 History ropinirole 0.5 mg PO HS 06/15/19 07/17/19 History lactulose 2 gm PO QID #3000 ml 06/20/19 07/17/19 Rx atorvastatin 20 mg tablet 20 mg PO HS #90 tab 06/26/19 07/17/19 Rx pen needle, diabetic 32 gauge x #100 ea 06/26/19 07/05/19 Rx " furosemide 20 mg tablet See Rx Instructions .ROUTE 07/11/19 07/17/19 Rx .COMPLEX #60 tablet insulin glargine 100 unit/mL (3 See Rx Instructions .ROUTE 07/12/19 07/17/19 Rx mL) subcutaneous pen .COMPLEX #15 milliliter rifaximin [Xifaxan] 550 mg PO BID 07/12/19 07/18/19 History Past Med/Surg History Medical History Anxiety Chronic back pain Cirrhosis FOLLOWS W/ [facility], MELD score 10. COPD (chronic obstructive pulmonary disease) (Chronic) Uses recuse inhaler ~ once/month Depression Diabetes mellitus, type 2 IDDM Esophageal varices Per EGD 11/30/2018: Nonbleeding grade 1 and small (<5 mm) esophageal varices. Hyperlipidemia Kidney stones Liver cancer DX 1-2 MONTHS AGO Migraine Neuropathy Osteoarthritis Pancytopenia (Acute) Poor historian Shortness of breath on exertion Skin cancer of face Sleep apnea PT UNABLE TO CONFIRM, DOES NOT USE ASSISTIVE DEVICE HS Surgical History History of arthroscopy of left shoulder History of arthroscopy of right knee History of bilateral cataract extraction History of carpal tunnel surgery of left wrist History of lithotripsy History of Mohs micrographic surgery for skin cancer History of tonsillectomy and adenoidectomy History of tooth extraction all teeth removed History of total abdominal hysterectomy and bilateral salpingo-oophorectomy Family History Brother Family history of diabetes mellitus Sister Family history of diabetes mellitus Other Family history non-contributory No family history of adverse response to anesthesia Social History Preferred Language: Serbian Communication Ability: Effective Visual Impairment: No Limitations Interlibrary Loan Services Librarian Required: No Beliefs That Will Affect Care: None Current Living Situation: Family Current Living Situation Comment: son Feels Safe at Home: Yes Safety Concerns: Feels Safe At This Time Smoking Status: Former smoker Second Hand Exposure: No ; Hx Alcohol Use: No Hx Substance Use: No Review of Systems Review of Systems: Unobtainable due to cognitive status Physical Exam Constitutional: WD/WN, vitals as above no acute distress Eyes: PERRL, conjunctivae normal, anicteric sclerae ENMT: external ear and nose normal, oropharynx normal (dry mucous membranes) Respiratory: normal respiratory effort, lungs clear to auscultation Cardiovascular: RRR, no murmur, no edema Vessels: posterior tibial pulses present and dorsalis pedis pulses present Extremities: normal capillary refill; no calf tenderness and no pedal edema Gastrointestinal (Abdomen): Percussion/Palpation: + abdomen tender (discomfort noted throughout abdomen) and abdomen soft; no guarding, abdomen not rigid and no ascites Musculoskeletal: no cyanosis or clubbing, extremities motor strength 5/5 Skin: no rashes, warm and dry Neurologic: PERRL, EOMI, accommodation nl, no face palsy, no dysarthria moves all extremities; no focal motor deficits Psychiatric: Orientation: alert Oriented to person and place, but not time Results & Data Vital Signs (Past 12 Hours) Vital Signs Temp Pulse Resp BP Pulse Ox 07/18/19 03:00 61 17 125/60 100 07/18/19 02:30 60 19 126/54 L 100 07/18/19 02:00 59 L 15 114/62 100 07/18/19 01:30 61 15 122/58 L 98 07/18/19 00:30 58 L 16 129/53 L 100 07/18/19 00:00 127/52 L 100 07/17/19 23:30 59 L 15 130/58 L 99 07/17/19 23:15 60 16 141/61 H 100 07/17/19 23:06 36.7 C 60 18 144/69 H 99 Code Status & VTE Plan VTE Prophylaxis Plan VTE Prophylaxis will be ordered: Yes Supervising Physician Co-Signing Physician Notes Patient seen and examined, chart reviewed, case discussed with Dr. Carbajal and I agree with her assessment and plan as documented above. Briefly, patient is a 68yo C female with history of cirrhosis presenting with AMS and elevated ammonia On exam she is afebrile, HD stable, Somnolent, arousable, oriented x 3 +BS, soft, NT/ND +S1/S2, regular, no m/r/g no rales/rhonchi/wheezes Labs and images reviewed. Ammonia = 99.9 Assessment/Plan: Tx with Rifaximin and Lactulose, IFV, remainder of plan as above Resident Activity Tracking Resident Involvement: Resident Care Provided Care Provided: Adult Hospital Medicine (1) Anemia Anemia type: unspecified type Qualified Code(s): D64.9 - Anemia, unspecified (2) Cirrhosis of liver Hepatic cirrhosis type: other cirrhosis Qualified Code(s): K74.69 - Other cirrhosis of liver (3) Cholelithiasis Biliary obstruction: without biliary obstruction Cholecystitis presence: without cholecystitis Cholelithiasis location: gallbladder Qualified Code(s): K80.20 - Calculus of gallbladder without cholecystitis without obstruction
[2019-07-18] MEDS ORDERED: GLUCOSE 10 TABS/TUBE PO PRN (04:43)
[2019-07-18] MEDS ORDERED: GLUCAGON FOR INJ 1 MG VIAL SQ PRN (04:43)
[2019-07-18] MEDS ORDERED: GLUCOSE 40% GEL 15 GM TUBE PO PRN (04:43)
[2019-07-18] MEDS ORDERED: DEXTROSE 50% 50 ML SYRINGE IV PRN (04:43)
[2019-07-18] MEDS ORDERED: CARBOHYDRATES FOR HYPOGLYCEMIA PO PRN (04:43)
[2019-07-18] MEDS: SODIUM CHLORIDE 0.9% 1000ML 1,000 ML IV SCH ×3 (05:12→22:09)
--- NOTE | 2019-07-18 06:46 | XRay Report ---
XR chest 1V portable CLINICAL HISTORY: 68 years-old Female presenting with sob, ams. TECHNIQUE: Portable upright AP view of the chest was obtained. COMPARISON: 06/15/2019. FINDINGS: Atherosclerosis of the aortic arch. Cardiac silhouette mildly enlarged. Pulmonary vascular prominence . Decreased interstitial prominence in comparison to prior. Mildly low lung volumes. No new focal opa city. Trace left pleural effusion suspected. No pneumothorax. Degenerative changes of the thoracic sp ine. Chronic widening of the left AC joint. Upper abdomen normal. IMPRESSION: 1. Mild cardiomegaly and mild volume overload. No advanced congestive change or pulmonary edema. 2. Mildly low lung volumes. 3. Trace left pleural effusion suspected. Electronically signed by: Maury Lucas M.D. 07/18/2019 6:45 AM
--- NOTE | 2019-07-18 06:49 | CT Scan Report ---
CT head/brain wo con CLINICAL HISTORY: 68 years-old Female presenting with fall, chi. TECHNIQUE: Multidetector CT imaging of the head was performed without the use of intravenous contrast . IV contrast: None. One or more dose lowering techniques were used consistent with the principles of ALARA (as low as reasonably achievable), including automatic exposure control, mA or kV adjustment t o individual patient size, and/or use of iterative reconstruction. COMPARISON: 06/15/2019. CT DOSE (mGy.cm): The estimated cumulative dose is 614.27 mGy.cm. FINDINGS: [employer] topogram: Unremarkable. Ventricles and sulci normal in size. Expanded sella noted as on prior exam. No hemorrhage. Brain pare nchyma normal in appearance with preserved hartman-white differentiation. No acute territorial infarct. No mass effect or midline shift. No extra-axial fluid collection. Paranasal sinuses and mastoid air c ells clear. Calvarium intact. Absent port heiden lenses. IMPRESSION: 1. No acute intracranial abnormality. Electronically signed by: Maury Lucas M.D. 07/18/2019 6:48 AM
--- NOTE | 2019-07-18 06:58 | Billing Data ---
Date of Service July 18, 2019 Coding Level of Care Code 21042 Initial Inpt Care Lvl 3
[2019-07-18 07:22] LABS: BUN Creatinine Ratio 20.9 (10-20); Creatinine Clr Calc Pharmacy 71.7 ml/min; Est GFR (Non-African American) 85.4; Potassium 3.1 mmol/L (3.5-5.1); T4 Free Thyroxine 1.03 ng/dl (0.8-1.6)
--- NOTE | 2019-07-18 07:26 | CT Scan Report ---
CT SCAN OF THE ABDOMEN AND PELVIS WITH IV CONTRAST CLINICAL HISTORY: Generalized abdominal pain. COMPARISON STUDY: Abdominal CT dated 06/16/2019. TECHNIQUE: Following the IV administration of 93 cc of Optiray 320, CT scan of the abdomen and pelvi s is performed from the lung bases to the proximal femora. Images are reviewed in the axial, sagittal , and coronal planes. IV contrast was administered without complication. A dose lowering technique wa s utilized adhering to the principles of ALARA. The examination is degraded by streak artifact from t he arms which could not be elevated above the abdomen. There is also motion artifact. CT DOSE: 795.25 mGy.cm FINDINGS: Lung bases: The heart is normal in size and without pericardial effusion. The coronary arteries are d ensely calcified. The lung bases are clear noting dependent atelectasis. A small hiatal hernia is not ed. Liver: The contrast-enhanced liver is cirrhotic in morphology and heterogeneous in attenuation. There is hypertrophy of the left lobe and nodularity of the surface contour. There is no intrahepatic bili myah ductal dilatation. The hepatic veins and portal veins are patent. Gallbladder: There are large calcified gallstone. Gallbladder wall thickening is nonspecific and like ly due to cirrhosis and ascites. Spleen: The spleen is enlarged measuring 17.2 cm in length. A splenorenal shunt is noted. Pancreas: Moderately atrophic and grossly unremarkable. Adrenal glands: Unremarkable. Kidneys: The contrast enhanced kidneys demonstrate cortical atrophy and are without hydronephrosis. T here is a 7 mm obstructing calculus in the right proximal ureter seen on image #192 at the level of L 1-L2. This is unchanged from 06/16/2019. Foci of cortical scarring are noted in the right upper pole. The kidneys enhance symmetrically. There are least 2 nonobstructing right renal calculi which measur e up to 6 mm. There are numerous bilateral renal cysts which measure up to 5.5 cm. A 4.2 cm complex c ystic lesion arising from the left kidney contains internal calcifications as seen on image #183. An additional 2.3 cm complex lesion in the lower pole of the left kidney seen on image #223. These are U nchanged from previous. Abdominal vasculature: The abdominal aorta is normal in course and caliber noting advanced atheroscle rotic calcification. Bowel: There is no bowel obstruction. Fecal retention is noted in the colon. Liquid stool is seen in the right colon. The appendix is well-visualized and normal. Peritoneum: There is trace perihepatic and perisplenic ascites. No intraperitoneal free air is seen. Lymphadenopathy: Prominent upper abdominal lymph nodes are likely related to chronic liver disease. Pelvic viscera: The bladder wall appears circumferentially thickened. The uterus is surgically absent . No adnexal lesion is seen. Skeletal structures: The skeletal structures are osteopenic. Mild to moderate lumbosacral spondylosis is observed. No lytic or blastic lesions are seen. Soft tissues: There is body wall edema. IMPRESSION: 1. The liver is cirrhotic in morphology and heterogeneous in attenuation. 2. Splenomegaly, a splenorenal shunt, and trace abdominal ascites indicate portal hypertension. 3. Cholelithiasis without clear CT evidence of acute cholecystitis. 4. There is a 7 mm obstructing calculus in the right proximal ureter. There is no upstream hydronephr osis, and this is unchanged from 06/16/2019. 5. Additional nonobstructing right renal calculi as above. 6. The bladder wall appears circumferentially thickened. Correlation with clinical findings and urina lysis will be required. 7. Liquid stool is noted in the right colon. Correlate clinically for evidence of a diarrheal illness . 8. Complex left renal lesions are unchanged from previous. 9. Additional findings as above. Electronically signed by: Valente Hightower M.D. 07/18/2019 7:25 AM
[2019-07-18] MEDS: INSULIN ASPART 100 UNITS/ML 3 ML PEN SC SCH ×4 (09:18→21:02)
[2019-07-18] MEDS: INSULIN GLARGINE SOLOSTAR 100 UNITS/ML 3 ML PEN SQ SCH ×2 (09:18→21:02)
[2019-07-18] MEDS: CHOLECALCIFEROL 1,000 UNITS TAB PO SCH (09:22)
[2019-07-18] MEDS: FERROUS SULFATE 325 MG TAB PO SCH ×2 (09:22→16:07)
[2019-07-18] MEDS: PANTOprazole 40 MG TAB PO SCH ×2 (09:22→16:07)
[2019-07-18] MEDS: GABAPENTIN 300 MG CAP PO SCH ×2 (09:22→20:54)
[2019-07-18] MEDS: LACTULOSE SYRUP 20 GM/30 ML UDC PO SCH ×4 (09:22→20:54)
[2019-07-18] MEDS: MAGNESIUM OXIDE 400 MG TAB PO SCH (09:22)
[2019-07-18] MEDS: RIFAXIMIN 550 MG TABLET PO SCH ×2 (09:23→20:54)
[2019-07-18] MEDS: FOLIC ACID 1 MG TAB PO SCH (09:23)
--- NOTE | 2019-07-18 12:33 | Hospitalist Progress Note ---
Date of Service July 18, 2019 Assessment & Plan (1) Hepatic encephalopathy: -Admit to med/surg -CT head negative -AMS likely secondary to hyperammonemia, with a ammonia level of 99.9. -Continue home lactulose and rifaximin, titrate up to achieve 2-3 bowel movements per day -No signs or symptoms of infection at this time, unsure what precipitated hepatic encephalopathy Present on Admission?: Yes (2) Cirrhosis of liver: -Follows with [facility] -Not yet undergoing treatment for her liver cancer -Has a history of esophageal varices, continue nadolol Present on Admission?: Yes (3) Cholelithiasis: See above Present on Admission?: Yes (4) Anemia: Anemia of chronic disease. Stable for now continue monitoring. Present on Admission?: Yes (5) Ureterolithiasis: Patient urology recommendations Right renal stone as well as a right proximal ureteral stone with some obstruction Numerous competing comorbidities Urology recommended outpatient treatment and allow her acute issues to resolve If she begins to experience definitive renal colic or related symptoms urology can potentially intervene sooner Present on Admission?: Yes (6) Thrombocytopenia: Related to patient multiple comorbidities, liver disease. No active signs of bleeding Present on Admission?: Yes (7) Hypokalemia: Potassium replenished continue monitoring. Present on Admission?: Yes (8) Diabetes: -Decrease home glargine from 40 units twice daily to 20 units twice daily given poor p.o. intake because of AMS -Placed on insulin sliding scale with BSG AC/HS Present on Admission?: Yes (9) HTN (hypertension): Continue home medicine: Furosemide 20 mg po daily, atorvastatin 20 mg p.o. nightly. Nadolol 20 mg p.o. every afternoon. Present on Admission?: Yes Subjective Patient seen and examined at the bedside. She is resting comfortably. Patient has moderate dementia.Patient is a poor historian. P.o. intake is slowly improving. Appreciate urology recommendations. Good p.o. intake. Patient denies fever, chills, chest pain, shortness of breath, abdominal pain, frequency, urgency. Patient denies flank pain Review of Systems Review of Systems: All systems reviewed & are unremarkable except as noted in HPI & below Physical Exam Constitutional: WD/WN, vitals as above no acute distress Eyes: PERRL, conjunctivae normal, anicteric sclerae ENMT: external ear and nose normal, oropharynx normal (dry mucous membranes) Respiratory: normal respiratory effort, lungs clear to auscultation Cardiovascular: RRR, no murmur, no edema Vessels: posterior tibial pulses present and dorsalis pedis pulses present Extremities: normal capillary refill; no calf tenderness and no pedal edema Gastrointestinal (Abdomen): Percussion/Palpation: + abdomen tender (discomfort noted throughout abdomen) and abdomen soft; no guarding, abdomen not rigid and no ascites Musculoskeletal: no cyanosis or clubbing, extremities motor strength 5/5 Skin: no rashes, warm and dry Neurologic: PERRL, EOMI, accommodation nl, no face palsy, no dysarthria moves all extremities; no focal motor deficits Psychiatric: Orientation: alert Results & Data Vital Signs (Past 12 Hours) Vital Signs Temp Pulse Pulse Pulse Resp BP BP 07/18/19 07:31 36.3 C L 63 16 153/62 H 07/18/19 04:30 36.4 C L 58 L 18 132/65 07/18/19 04:00 59 L 16 117/59 L 07/18/19 03:30 59 L 17 124/59 L 07/18/19 03:00 61 17 125/60 07/18/19 02:30 60 19 126/54 L 07/18/19 02:00 59 L 15 114/62 07/18/19 01:30 61 15 122/58 L Pulse Ox 07/18/19 07:31 97 07/18/19 04:30 99 07/18/19 04:00 100 07/18/19 03:30 100 07/18/19 03:00 100 07/18/19 02:30 100 07/18/19 02:00 100 07/18/19 01:30 98 PG Care Time/CCT Total # of Minutes Spent Total Time Spent with Patient: Total time spent is greater than 50% in coordination of care (as documented) at patient's floor/unit and/or counseling patient: (1) Anemia Anemia type: unspecified type Qualified Code(s): D64.9 - Anemia, unspecified (2) Cirrhosis of liver Hepatic cirrhosis type: other cirrhosis Qualified Code(s): K74.69 - Other cirrhosis of liver (3) Cholelithiasis Biliary obstruction: without biliary obstruction Cholecystitis presence: without cholecystitis Cholelithiasis location: gallbladder Qualified Code(s): K80.20 - Calculus of gallbladder without cholecystitis without obstruction
--- NOTE | 2019-07-18 12:58 | Urology Consultation ---
Date of Consultation July 18, 2019 Assessment & Plan (1) Ureterolithiasis: Nephrolithiasis Right renal stone as well as a right proximal ureteral stone with some obstruction Numerous competing comorbidities For the time being, I think we will plan for continued outpatient treatment and allow her acute issues to resolve If she begins to experience definitive renal colic or related symptoms we can potentially intervene sooner History of Present Illness Attending Physician: Dilshad Gonzalez MD History of Present Illness 68-year-old female with an unfortunate medical history including HCC, cirrhosis, cholecystitis millimeters right ureteral stone Presented with a multitude of problems, both acute and chronic Previously was seen during her last hospitalization with an asymptomatic right ureteral stone We had previously scheduled outpatient treatment in the form of ureteroscopy She now returns to the hospital, still without definitive stone symptoms, but does complain of some diffuse abdominal pain. No fevers or chills Some signs of encephalopathy upon arrival, mentating well today Allergies Allergy/AdvReac Type Severity Reaction Status Date / Time methyl salicylate Allergy Mild RASH Verified 07/17/19 23:24 nickel Allergy Mild RASH Verified 07/17/19 23:24 zinc Allergy Mild RASH Verified 07/17/19 23:24 diphenhydramine AdvReac Intermediate BURNING Verified 07/17/19 23:24 EYES,DIZZY,BLISTERS Home Medications Home Medications Medication Instructions Recorded Confirmed Type cholecalciferol (vitamin D3) 2,000 unit PO QAM 04/13/18 07/17/19 History docusate sodium 100 mg capsule 200 mg PO DAILY #60 cap 02/08/19 07/17/19 Rx gabapentin 300 mg capsule 300 mg PO BID #60 cap 03/01/19 07/17/19 Rx Refresh Liquigel 1 drp OPB DAILY 04/14/19 07/18/19 History ferrous sulfate 325 mg PO BIDM 04/14/19 07/17/19 History magnesium oxide 400 mg PO DAILY 04/14/19 07/17/19 History lancets 30 gauge ea 04/19/19 07/05/19 History insulin aspart U-100 100 unit/mL See Rx Instructions SUBCUT 04/21/19 07/17/19 Rx (3 mL) subcutaneous pen .COMPLEX #15 ml lactulose 10 gram/15 mL oral 30 ml PO DIRECTED PRN #1892 ml 05/17/19 07/17/19 Rx solution escitalopram oxalate 10 mg PO HS 06/15/19 07/17/19 History folic acid 1 mg PO DAILY 06/15/19 07/17/19 History nadolol 20 mg PO QPM 06/15/19 07/17/19 History pantoprazole 40 mg PO BIDM 06/15/19 07/17/19 History ropinirole 0.5 mg PO HS 06/15/19 07/17/19 History lactulose 2 gm PO QID #3000 ml 06/20/19 07/17/19 Rx atorvastatin 20 mg tablet 20 mg PO HS #90 tab 06/26/19 07/17/19 Rx pen needle, diabetic 32 gauge x #100 ea 06/26/19 07/05/19 Rx 32" furosemide 20 mg tablet See Rx Instructions .ROUTE 07/11/19 07/17/19 Rx .COMPLEX #60 tablet insulin glargine 100 unit/mL (3 See Rx Instructions .ROUTE 07/12/19 07/17/19 Rx mL) subcutaneous pen .COMPLEX #15 milliliter rifaximin [Xifaxan] 550 mg PO BID 07/12/19 07/18/19 History Patient History Medical History Anxiety Chronic back pain Cirrhosis FOLLOWS W/ [facility], MELD score 10. COPD (chronic obstructive pulmonary disease) (Chronic) Uses recuse inhaler ~ once/month Depression Diabetes mellitus, type 2 IDDM Esophageal varices Per EGD 11/30/2018: Nonbleeding grade 1 and small (<5 mm) esophageal varices. Hyperlipidemia Kidney stones Liver cancer DX 1-2 MONTHS AGO Migraine Neuropathy Osteoarthritis Pancytopenia (Acute) Poor historian Shortness of breath on exertion Skin cancer of face Sleep apnea PT UNABLE TO CONFIRM, DOES NOT USE ASSISTIVE DEVICE HS Surgical History History of arthroscopy of left shoulder History of arthroscopy of right knee History of bilateral cataract extraction History of carpal tunnel surgery of left wrist History of lithotripsy History of Mohs micrographic surgery for skin cancer History of tonsillectomy and adenoidectomy History of tooth extraction all teeth removed History of total abdominal hysterectomy and bilateral salpingo-oophorectomy Family History Brother Family history of diabetes mellitus Sister Family history of diabetes mellitus Other Family history non-contributory No family history of adverse response to anesthesia Social History Preferred Language: Chinese Communication Ability: Effective Visual Impairment: No Limitations Shed Boss Required: No Beliefs That Will Affect Care: None Current Living Situation: Family Current Living Situation Comment: son Feels Safe at Home: Yes Safety Concerns: Feels Safe At This Time Smoking Status: Former smoker Second Hand Exposure: No ; Hx Alcohol Use: No Hx Substance Use: No Review of Systems Constitutional: + body aches and + fatigue; no fever and no chills Eyes: no worsening vision Ear, Nose, Mouth, Throat: no facial pain and no pain with swallowing Respiratory: no cough and no dyspnea Cardiovascular: no chest pain and no palpitations Gastrointestinal: + abdominal pain, + bloating and + nausea; no vomiting Genitourinary: no dysuria, no difficulty urinating, no urinary frequency and no hematuria Musculoskeletal: no back pain Integumentary: no rash and no urticaria Neurologic: + headache(s); no gait abnormality and no unsteadiness Psychiatric: + behavioral changes Endocrine: no fatigue Physical Exam Constitutional: well developed and well nourished Neck: neck nontender Respiratory: normal respiratory effort; no respiratory distress and does not use accessory muscles Cardiovascular: Rate/Rhythm: regular rate Vessels: radial pulses present Extremities: no edema Gastrointestinal (Abdomen): Inspection/Auscultation: abdomen normal to in spection Percussion/Palpation: + abdomen tender (Tender to palpation diffuselyall quadrants, no definitive right CVA tenderness) and abdomen soft; no guarding Musculoskeletal: Head/Neck/Chest: normocephalic and head atraumatic Extremities: extremities normal to inspection Skin: no rashes and no lesions Trauma: no evidence of skin trauma Neurologic: awake; not obtunded Speech / Cognition: normal speech Motor/Sensory: no tremor Psychiatric: Orientation: alert and oriented x 3 Lymphatic: no lymphadenopathy Results & Data Vital Signs (Past 12 Hours) Vital Signs Temp Pulse Pulse Pulse Resp BP BP 07/18/19 07:31 36.3 C L 63 16 153/62 H 07/18/19 04:30 36.4 C L 58 L 18 132/65 12/17/19 04:00 59 L 16 117/59 L 07/18/19 03:30 59 L 17 124/59 L 07/18/19 03:00 61 17 125/60 07/18/19 02:30 60 19 126/54 L 07/18/19 02:00 59 L 15 114/62 07/18/19 01:30 61 15 122/58 L Pulse Ox 07/18/19 07:31 97 07/18/19 04:30 99 07/18/19 04:00 100 07/18/19 03:30 100 07/18/19 03:00 100 07/18/19 02:30 100 07/18/19 02:00 100 07/18/19 01:30 98 PG Care Time/CCT Total # of Minutes Spent Total Time Spent with Patient: Total time spent is greater than 50% in coordination of care (as documented) at patient's floor/unit and/or counseling patient:
[2019-07-18] MEDS: NADOLOL 40 MG TAB PO SCH (20:53)
[2019-07-18] MEDS: ATORVASTATIN 20 MG TAB PO SCH (20:54)
[2019-07-18] MEDS: ESCITALOPRAM OXALATE 10 MG TAB PO SCH (20:54)
[2019-07-18] MEDS: ROPINIROLE HCL 0.25 MG TABLET PO SCH (20:54)
[2019-07-19] MEDS: SODIUM CHLORIDE 0.9% 1000ML 1,000 ML IV SCH ×3 (05:40→21:19)
[2019-07-19] MEDS: CHOLECALCIFEROL 1,000 UNITS TAB PO SCH (08:13)
[2019-07-19] MEDS: GABAPENTIN 300 MG CAP PO SCH ×2 (08:13→20:38)
[2019-07-19] MEDS: PANTOprazole 40 MG TAB PO SCH ×2 (08:13→18:03)
[2019-07-19] MEDS: LACTULOSE SYRUP 20 GM/30 ML UDC PO SCH ×4 (08:13→20:38)
[2019-07-19] MEDS: FERROUS SULFATE 325 MG TAB PO SCH ×2 (08:13→18:03)
[2019-07-19] MEDS: MAGNESIUM OXIDE 400 MG TAB PO SCH (08:13)
[2019-07-19] MEDS: RIFAXIMIN 550 MG TABLET PO SCH ×2 (08:13→20:38)
[2019-07-19] MEDS: FOLIC ACID 1 MG TAB PO SCH (08:13)
[2019-07-19] MEDS: INSULIN ASPART 100 UNITS/ML 3 ML PEN SC SCH ×4 (08:47→20:44)
[2019-07-19] MEDS: INSULIN GLARGINE SOLOSTAR 100 UNITS/ML 3 ML PEN SQ SCH ×2 (08:47→20:43)
--- NOTE | 2019-07-19 10:00 | Urology Progress Note ---
Date of Service July 19, 2019 Assessment & Plan (1) Ureterolithiasis: 68yo F admitted with hepatic encephalopathy, with known right ureteral stone. Remains asymptomatic from perspective. Cr stable, no acute pain or decompensation. Will keep plan as originally scheduled for outpatient ureteroscopy once acute issues are resolved. Please reconsult our service urgently if patient develops fever >101F, intractable pain or nausea, as this will necessitate urgent surgical intervent ion. Thank you for the consultation. Subjective Sitting up in bed eating breakfast this AM. Denies flank or suprapubic pain. Denies difficulty voiding. Denies n/v/f/c. NO new issues or concerns from perspective Review of Systems Review of Systems: All systems reviewed & are unremarkable except as noted in HPI & below Physical Exam Physical Exam: A&Ox3 Resp rate regular Results & Data Vital Signs (Past 12 Hours) Vital Signs Temp Pulse Resp BP Pulse Ox 07/19/19 08:17 36.6 C 63 18 145/67 H 97 07/18/19 23:50 36.9 C 72 16 133/64 95 PG Care Time/CCT Total # of Minutes Spent Total Time Spent with Patient: Total time spent is greater than 50% in coordination of care (as documented) at patient's floor/unit and/or counseling patient:
--- NOTE | 2019-07-19 15:01 | Hospitalist Progress Note ---
Date of Service July 19, 2019 Assessment & Plan (1) Hepatic encephalopathy: -Admit to med/surg -CT head negative -AMS improving, likely secondary to hyperammonemia, continue trend ammonia down. -Continue home lactulose and rifaximin, titrate up to achieve 2-3 bowel movements per day -No signs or symptoms of infection at this time, unsure what precipitated hepatic encephalopathy (2) Cirrhosis of liver: -Follows with Guz[facility] -Not yet undergoing treatment for her liver cancer -Has a history of esophageal varices, continue nadolol (3) Cholelithiasis: See above (4) Anemia: Anemia of chronic disease. Stable for now continue monitoring. (5) Ureterolithiasis: Patient urology recommendations Right renal stone as well as a right proximal ureteral stone with some obstruction Numerous competing comorbidities Urology recommended outpatient treatment and allow her acute issues to resolve If she begins to experience definitive renal colic or related symptoms urology can potentially intervene sooner (6) Thrombocytopenia: Related to patient multiple comorbidities, liver disease. No active signs of bleeding (7) Hypokalemia: Potassium replenished, continue monitoring. (8) Diabetes: -Decrease home glargine from 40 units twice daily to 20 units twice daily given poor p.o. intake because of AMS -Placed on insulin sliding scale with BSG AC/HS (9) HTN (hypertension): Continue home medicine: Furosemide 20 mg po daily, atorvastatin 20 mg p.o. nightly. Nadolol 20 mg p.o. every afternoon. (10) Discharge planning issues: Patient will be most likely discharged home when clinically stable. Subjective Patient seen and examined at the bedside. No acute event overnight. She is afebrile. Patient states that she feels better. Good p.o. intake. Patient denies flank or suprapubic pain. Patient denies fever, chills, chest pain, shortness of breath, abdominal pain, frequency, urgency, nausea, vomiting. Patient does not have difficulty voiding. Review of Systems Review of Systems: All systems reviewed & are unremarkable except as noted in HPI & below Physical Exam Constitutional: WD/WN, vitals as above no acute distress Eyes: PERRL, conjunctivae normal, anicteric sclerae ENMT: external ear and nose normal, oropharynx normal (dry mucous membranes) Respiratory: normal respiratory effort, lungs clear to auscultation Cardiovascular: RRR, no murmur, no edema Vessels: posterior tibial pulses present and dorsalis pedis pulses present Extremities: normal capillary refill; no calf tenderness and no pedal edema Gastrointestinal (Abdomen): Percussion/Palpation: + abdomen tender (discomfort noted throughout abdomen) and abdomen soft; no guarding, abdomen not rigid and no ascites Musculoskeletal: no cyanosis or clubbing, extremities motor strength 5/5 Skin: no rashes, warm and dry Neurologic: PERRL, EOMI, accommodation nl, no face palsy, no dysarthria moves all extremities; no focal motor deficits Psychiatric: Orientation: alert Results & Data Vital Signs (Past 12 Hours) Vital Signs Temp Pulse Resp BP Pulse Ox 07/19/19 14:45 36.7 C 67 18 135/63 99 07/19/19 08:17 36.6 C 63 18 145/67 H 97 PG Care Time/CCT Total # of Minutes Spent Total Time Spent with Patient: Total time spent is greater than 50% in coordination of care (as documented) at patient's floor/unit and/or counseling patient: (1) Anemia Anemia type: unspecified type Qualified Code(s): D64.9 - Anemia, unspecified (2) Cirrhosis of liver Hepatic cirrhosis type: other cirrhosis Qualified Code(s): K74.69 - Other cirrhosis of liver (3) Cholelithiasis Biliary obstruction: without biliary obstruction Cholecystitis presence: without cholecystitis Cholelithiasis location: gallbladder Qualified Code(s): K80.20 - Calculus of gallbladder without cholecystitis without obstruction
[2019-07-19] MEDS: ACETAMINOPHEN 325 MG TAB PO PRN (15:37)
[2019-07-19] MEDS: NADOLOL 40 MG TAB PO SCH (20:37)
[2019-07-19] MEDS: ROPINIROLE HCL 0.25 MG TABLET PO SCH (20:38)
[2019-07-19] MEDS: ESCITALOPRAM OXALATE 10 MG TAB PO SCH (20:38)
[2019-07-19] MEDS: ATORVASTATIN 20 MG TAB PO SCH (20:38)
[2019-07-20] MEDS: ACETAMINOPHEN 325 MG TAB PO PRN (03:03)
[2019-07-20] MEDS: SODIUM CHLORIDE 0.9% 1000ML 1,000 ML IV SCH ×2 (04:58→12:52)
[2019-07-20] MEDS ORDERED: Nursing to Pharmacy Communication ONE (05:31)
[2019-07-20 05:37] LABS: Hematocrit (blood only) 24.7 % (37-47); Hemoglobin 8.8 g/dL (12.0-16.0); Mean Corpuscular Hemoglobin 35.9 pg (25-34); Mean Corpuscular Hgb Conc 35.6 g/dL (32-36); Mean Corpuscular Volume 100.8 fL (80-100); RDW Coefficient of Variation 14.5 % (11.5-14.5); RDW Standard Deviation 53.6 fL (36.4-46.3); Red Blood Count 2.45 M/uL (4.2-5.4); White Blood Count 2.85 K/uL (4.8-10.8)
[2019-07-20 06:00] LABS: Mean Platelet Volume 10.6 fL (7.4-10.4); Platelet Count 41 K/uL (130-400)
[2019-07-20 06:01] LABS: Basophils # (auto) 0.01 K/uL (0-0.2); Basophils % (auto) 0.4 %; Eosinophils % (auto) 3.5 %; Lymphocytes % (auto) 31.6 %; Monocytes # (auto) 0.31 K/uL (0.11-0.59); Monocytes % (auto) 10.9 %; Neutrophils # (auto) 1.53 K/uL (1.4-6.5); Neutrophils % (auto) 53.6 %; Platelet Estimate Decreased (Normal)
[2019-07-20 06:03] LABS: Albumin Level 1.8 gm/dl (3.4-5.0); BUN Creatinine Ratio 14.1 (10-20); Calcium 7.3 mg/dl (8.5-10.1); Creatinine Clr Calc Pharmacy 74.8 ml/min; Est GFR (African American) 102.9; Est GFR (Non-African American) 88.8; Potassium 3.6 mmol/L (3.5-5.1)
[2019-07-20 06:12] LABS: Albumin Globulin Ratio 0.5 (0.9-2); Bilirubin,Total 1.2 mg/dl (0.2-1); Globulin 3.4 gm/dl (2.5-4.0); Total Protein 5.2 gm/dl (6.4-8.2)
[2019-07-20] MEDS: RIFAXIMIN 550 MG TABLET PO SCH ×2 (09:36→22:16)
[2019-07-20] MEDS: MAGNESIUM OXIDE 400 MG TAB PO SCH (09:36)
[2019-07-20] MEDS: GABAPENTIN 300 MG CAP PO SCH ×2 (09:36→22:16)
[2019-07-20] MEDS: CHOLECALCIFEROL 1,000 UNITS TAB PO SCH (09:36)
[2019-07-20] MEDS: FOLIC ACID 1 MG TAB PO SCH (09:36)
[2019-07-20] MEDS: FERROUS SULFATE 325 MG TAB PO SCH ×2 (09:36→17:09)
[2019-07-20] MEDS: LACTULOSE SYRUP 20 GM/30 ML UDC PO SCH ×4 (09:36→22:15)
[2019-07-20] MEDS: PANTOprazole 40 MG TAB PO SCH ×2 (09:36→17:09)
[2019-07-20] MEDS: INSULIN ASPART 100 UNITS/ML 3 ML PEN SC SCH ×4 (09:37→22:22)
[2019-07-20] MEDS: INSULIN GLARGINE SOLOSTAR 100 UNITS/ML 3 ML PEN SQ SCH ×2 (09:37→22:24)
--- NOTE | 2019-07-20 16:46 | Hospitalist Progress Note ---
Date of Service July 20, 2019 Assessment & Plan (1) Hepatic encephalopathy: Unclear inciting event. No signs of infection. Slowly improving. -CT head negative -AMS improving, likely secondary to hyperammonemia. -Continue home lactulose and rifaximin, titrate up to achieve 2-3 bowel movem ents per day - PT/OT (2) Cirrhosis of liver: -Follows with Guz[facility] Sam -Not yet undergoing treatment for her liver cancer -Has a history of esophageal varices, continue nadolol (3) Cholelithiasis: See above (4) Anemia: Anemia of chronic disease. - Hgb dropped from 10 to 8.8 on 07/20. - No indications of bleeding. Monitor. (5) Ureterolithiasis: Patient urology recommendations. Right renal stone as well as a right pr oximal ureteral stone with some obstruction. - Urology recommended outpatient treatment and allow her acute issues to resolve - If she begins to experience definitive renal colic or related symptoms urology can potentially intervene sooner. (6) Thrombocytopenia: Related to patient multiple comorbidities, liver disease. No active signs of bleeding. - Today plts stable at 41. (7) Hypokalemia: Potassium replenished, continue monitoring. (8) Diabetes: -Decrease home glargine from 40 units twice daily to 20 units twice daily given poor p.o. intake because of AMS -Placed on insulin sliding scale with BSG AC/HS - Stable on 07/20. (9) HTN (hypertension): Continue home medicine: Furosemide 20 mg po daily, atorvastatin 20 mg p.o. nightly. Nadolol 20 mg p.o. every afternoon. (10) Discharge planning issues: Patient will be most likely discharged home when clinically stable. - Getting set up with home health with case management. Subjective Feels very tired today. Is having a lot of BMs. Overall, still not feeling extremely well. Reports no fevers/chills, chest pain, shortness of breath, abdominal pain, nausea, or vomiting. Physical Exam Constitutional: cooperative and + lethargic Eyes: EOM intact bilaterally; no conjunctival abnormality ENMT: external ear and nose normal, oropharynx normal Neck: trachea midline, no thyromegaly normal visual inspection Respiratory: normal respiratory effort, lungs clear to auscultation no respiratory distress Cardiovascular: RRR, no murmur, no edema Gastrointestinal (Abdomen): Inspection/Auscultation: abdomen normal to inspection; abdomen not distended Musculoskeletal: no cyanosis or clubbing, extremities motor strength 5/5 Skin: no rashes, warm and dry Neurologic: moves all extremities and awake Psychiatric: Orientation: alert, oriented to person and cooperative Results & Data Vital Signs (Past 12 Hours) Vital Signs Temp Pulse Resp BP Pulse Ox 07/20/19 15:58 36.4 C L 68 16 137/62 99 07/20/19 14:58 36.4 C L 63 16 136/67 99 07/20/19 07:41 36.5 C 62 18 135/68 95 PG Care Time/CCT Total # of Minutes Spent Total Time Spent with Patient: Total time spent is greater than 50% in coordination of care (as documented) at patient's floor/unit and/or counseling patient: (1) Cirrhosis of liver Hepatic cirrhosis type: other cirrhosis Qualified Code(s): K74.69 - Other cirrhosis of liver (2) Cholelithiasis Biliary obstruction: without biliary obstruction Cholecystitis presence: without cholecystitis Cholelithiasis location: gallbladder Qualified Code(s): K80.20 - Calculus of gallbladder without cholecystitis without obstruction (3) Anemia Anemia type: unspecified type Qualified Code(s): D64.9 - Anemia, unspecified
[2019-07-20] MEDS: NADOLOL 40 MG TAB PO SCH (22:15)
[2019-07-20] MEDS: ROPINIROLE HCL 0.25 MG TABLET PO SCH (22:16)
[2019-07-20] MEDS: ATORVASTATIN 20 MG TAB PO SCH (22:16)
[2019-07-20] MEDS: ESCITALOPRAM OXALATE 10 MG TAB PO SCH (22:16)
[2019-07-21] MEDS: ACETAMINOPHEN 325 MG TAB PO PRN ×2 (00:24→12:13)
[2019-07-21 07:30] LABS: Hematocrit (blood only) 25.1 % (37-47); Hemoglobin 8.9 g/dL (12.0-16.0); Mean Corpuscular Hemoglobin 36.2 pg (25-34); Mean Corpuscular Hgb Conc 35.5 g/dL (32-36); RDW Coefficient of Variation 14.8 % (11.5-14.5); RDW Standard Deviation 54.7 fL (36.4-46.3); Red Blood Count 2.46 M/uL (4.2-5.4); White Blood Count 4.47 K/uL (4.8-10.8)
[2019-07-21 07:58] LABS: Albumin Level 1.9 gm/dl (3.4-5.0); BUN Creatinine Ratio 14.2 (10-20); Calcium 7.9 mg/dl (8.5-10.1); Creatinine Clr Calc Pharmacy 68.8 ml/min; Est GFR (African American) 94.3; Est GFR (Non-African American) 81.3; Potassium 3.5 mmol/L (3.5-5.1)
[2019-07-21 08:00] LABS: Mean Platelet Volume 10.3 fL (7.4-10.4); Platelet Count 52 K/uL (130-400)
[2019-07-21 08:01] LABS: Albumin Globulin Ratio 0.6 (0.9-2); Bilirubin,Total 1.2 mg/dl (0.2-1); Globulin 3.4 gm/dl (2.5-4.0); Total Protein 5.3 gm/dl (6.4-8.2)
[2019-07-21 08:04] LABS: Basophils # (auto) 0.01 K/uL (0-0.2); Basophils % (auto) 0.2 %; Eosinophils % (auto) 4.5 %; Giant Platelets 1+; Immature Granulocytes # (auto) 0.02 K/uL (0.00-0.02); Immature Granulocytes % (auto) 0.4 %; Lymphocytes # (auto) 1.16 K/uL (1.2-3.4); Monocytes # (auto) 0.53 K/uL (0.11-0.59); Monocytes % (auto) 11.9 %; Neutrophils # (auto) 2.55 K/uL (1.4-6.5)
[2019-07-21] MEDS: LACTULOSE SYRUP 20 GM/30 ML UDC PO SCH ×2 (09:05→13:03)
[2019-07-21] MEDS: FOLIC ACID 1 MG TAB PO SCH (09:05)
[2019-07-21] MEDS: INSULIN GLARGINE SOLOSTAR 100 UNITS/ML 3 ML PEN SQ SCH ×2 (09:06→21:08)
[2019-07-21] MEDS: FERROUS SULFATE 325 MG TAB PO SCH ×2 (09:06→18:38)
[2019-07-21] MEDS: CHOLECALCIFEROL 1,000 UNITS TAB PO SCH (09:06)
[2019-07-21] MEDS: RIFAXIMIN 550 MG TABLET PO SCH ×2 (09:06→21:27)
[2019-07-21] MEDS: MAGNESIUM OXIDE 400 MG TAB PO SCH (09:06)
[2019-07-21] MEDS: GABAPENTIN 300 MG CAP PO SCH ×2 (09:06→21:27)
[2019-07-21] MEDS: PANTOprazole 40 MG TAB PO SCH ×2 (09:06→18:38)
[2019-07-21] MEDS: INSULIN ASPART 100 UNITS/ML 3 ML PEN SC SCH ×5 (09:08→21:31)
[2019-07-21] MEDS ORDERED: PHARMACY GLYCEMIC MGMT CONSULT SCH (12:29)
[2019-07-21] MEDS ORDERED: INSULIN HUMAN REGULAR PER UNIT 5 UNITS in SYRINGE 0 ML IV SCH (13:15)
--- NOTE | 2019-07-21 15:40 | Pharmacy Report ---
Glycemic Control Consultation - Date of Service July 21, 2019 - Scope Scope: Glycemic Pharmacist consulted by Dr Jeffrey on 07/21/19 for glycemic control and to write orders per [facility] inpatient glycemic control protocol - Objective Weight: 71.5 kg Accuchecks BSG (last 24hrs): 07/20/19 07/20/19 07/20/19 17:30 17:32 20:51 Glucose POC Glucose 317 H* 331 H* 296 H 07/21/19 07/21/19 07/21/19 07:02 07:58 12:05 Glucose 73 POC Glucose 75 346 H* 07/21/19 12:07 Glucose POC Glucose 346 H* Laboratory Data (last 24hrs): 07/21/19 07:02 Potassium 3.5 Carbon Dioxide 23 Anion Gap 4.0 Creatinine 0.75 Est Cr Clr Drug Dosing 68.8 - Recent Pertinent Medications Outpatient Anti-diabetic Regimen: * Basaglar 40 units BID * Novolog sliding scale * A1c = 8.8 % on 06/17/19 The patient WAS receiving: * Basal insulin: Lantus 30 units every 12 hours * Correctional Insulin: Novolog Correction per scale ACHS Goal Range: Low 120 mg/dL - High 180 mg/dL Correction Factor: 15 mg/dL/unit * Prandial insulin: Per carb ratio of 1 unit per 10 grams CHO consumed Risk Factors for Insulin Resistance: * Diet: T2DM - Assessment & Plan Assessment & Plan: ASSESSMENT: * 68 y/o F admitted on 07/18/19 for hepatic encephalopathy and kidney stones with Type 2 diabetes managed by Basaglar long acting insulin and Novolog sliding scale. * Patient was started on Lantus 20 BID on admission on 07/18 which was increased to 30 units BID last night. * Fasting BSG today was 75 indicating that she needs less basal although she had been on higher dose RN CARDIAC. * Post prandial BSGs yesterday were all above 200 or 300 indicating she needs more prandial coverage. * Lantus dose was decreased and Novolog carb ratio was tightened. * BSG at lunch time today was up to 346. Regular Insulin 5 units IV was given to correct this hyperglycemia event. * This patient was recently admitted last month when pharmacy was consulted for glycemic management. Novolog parameters were chosen based on this data. PLAN FOR INPATIENT GLYCEMIC CONTROL: * Basal insulin: decreased * Lantus 20 units SQ BID * Bolus insulin: tightened * NovoLog per scale ACHS or Q6hrs while NPO * Goal Range: Low 110 mg/dL - High 150 mg/dL * Correction Factor: 15 mg/dL/unit * Nutritional / Prandial insulin per carb ratio of 1 unit per 5 grams CHO consumed * Please note that the plan above was derived based on current level of insulin resistance and hospital stress. These recommendations are appropriate for inpatient admission only. Plan of care upon discharge will need to be reassessed to avoid potential outpatient hypo/hyperglycemia. Thank you.
[2019-07-21] MEDS ORDERED: INSULIN GLARGINE SOLOSTAR 100 UNITS/ML 3 ML PEN SQ SCH (21:00)
[2019-07-21] MEDS: ROPINIROLE HCL 0.25 MG TABLET PO SCH (21:27)
[2019-07-21] MEDS: NADOLOL 40 MG TAB PO SCH (21:27)
[2019-07-21] MEDS: ESCITALOPRAM OXALATE 10 MG TAB PO SCH (21:27)
[2019-07-21] MEDS: ATORVASTATIN 20 MG TAB PO SCH (21:27)
--- NOTE | 2019-07-21 22:16 | Hospitalist Progress Note ---
Date of Service July 21, 2019 Assessment & Plan (1) Hepatic encephalopathy: Unclear inciting event. No signs of infection. Slowly improving. -CT head negative -AMS improving, likely secondary to hyperammonemia. -Continue home lactulose and rifaximin, titrate up to achieve 2-3 bowel movem ents per day - PT/OT (2) Cirrhosis of liver: -Follows with Guzman Sam -Not yet undergoing treatment for her liver cancer -Has a history of esophageal varices, continue nadolol (3) Cholelithiasis: See above (4) Anemia: Anemia of chronic disease. - Hgb dropped from 10 to 8.8 on 07/20. - No indications of bleeding. Monitor. (5) Ureterolithiasis: Patient urology recommendations. Right renal stone as well as a right pr oximal ureteral stone with some obstruction. - Urology recommended outpatient treatment and allow her acute issues to resolve - If she begins to experience definitive renal colic or related symptoms urology can potentially intervene sooner. (6) Thrombocytopenia: Related to patient multiple comorbidities, liver disease. No active signs of bleeding. - Today plts stable at 41. (7) Hypokalemia: Potassium replenished, continue monitoring. (8) Diabetes: -Decrease home glargine from 40 units twice daily to 20 units twice daily given poor p.o. intake because of AMS -Placed on insulin sliding scale with BSG AC/HS - Stable on 07/20. (9) HTN (hypertension): Continue home medicine: Furosemide 20 mg po daily, atorvastatin 20 mg p.o. nightly. Nadolol 20 mg p.o. every afternoon. (10) Discharge planning issues: Patient will be most likely discharged home when clinically stable. - Getting set up with home health with case management. Still not ready. Subjective 68 yo female continues to be confused.Her son is at bedside and reports she is better than when she first came in to the hospital. She is not at her baseline as per her son. Review of Systems Review of Systems: All systems reviewed & are unremarkable except as noted in HPI & below Physical Exam Physical Exam: Constitutional: cooperative and awake, slow, in regards to her ability to converse Eyes: EOM intact bilaterally; no conjunctival abnormality ENMT: external ear and nose normal, oropharynx normal Neck: trachea midline, no thyromegaly normal visual inspection Respiratory: normal respiratory effort, lungs clear to auscultation no respiratory distress Cardiovascular: RRR, no murmur, no edema Gastrointestinal (Abdomen): Inspection/Auscultation: abdomen normal to inspection; abdomen not distended Musculoskeletal: no cyanosis or clubbing, extremities motor strength 5/5 Skin: no rashes, warm and dry Neurologic: moves all extremities and awake Psychiatric: Orientation: alert, oriented to person and cooperative Results & Data Vital Signs (Past 12 Hours) Vital Signs Temp Pulse Resp BP BP Pulse Ox 07/21/19 21:22 63 146/56 H 07/21/19 15:38 36.4 C L 59 L 16 138/65 100 PG Care Time/CCT Total # of Minutes Spent Total Time Spent with Patient: Total time spent is greater than 50% in coordination of care (as documented) at patient's floor/unit and/or counseling patient: (1) Anemia Anemia type: unspecified type Qualified Code(s): D64.9 - Anemia, unspecified (2) Cirrhosis of liver Hepatic cirrhosis type: other cirrhosis Qualified Code(s): K74.69 - Other cirrhosis of liver (3) Cholelithiasis Biliary obstruction: without biliary obstruction Cholecystitis presence: without cholecystitis Cholelithiasis location: gallbladder Qualified Code(s): K80.20 - Calculus of gallbladder without cholecystitis without obstruction
[2019-07-22 06:48] LABS: Hematocrit (blood only) 25.9 % (37-47); Hemoglobin 9.1 g/dL (12.0-16.0); Mean Corpuscular Hemoglobin 35.7 pg (25-34); Mean Corpuscular Hgb Conc 35.1 g/dL (32-36); Mean Corpuscular Volume 101.6 fL (80-100); RDW Coefficient of Variation 15.1 % (11.5-14.5); RDW Standard Deviation 55.2 fL (36.4-46.3); Red Blood Count 2.55 M/uL (4.2-5.4); White Blood Count 4.16 K/uL (4.8-10.8)
[2019-07-22 07:02] LABS: Mean Platelet Volume 10.9 fL (7.4-10.4); Platelet Count 59 K/uL (130-400)
[2019-07-22 07:10] LABS: Basophils # (auto) 0.02 K/uL (0-0.2); Basophils % (auto) 0.5 %; Eosinophils # (auto) 0.19 K/uL (0-0.5); Eosinophils % (auto) 4.6 %; Immature Granulocytes # (auto) 0.01 K/uL (0.00-0.02); Immature Granulocytes % (auto) 0.2 %; Lymphocytes # (auto) 1.11 K/uL (1.2-3.4); Lymphocytes % (auto) 26.7 %; Monocytes # (auto) 0.46 K/uL (0.11-0.59); Monocytes % (auto) 11.1 %; Neutrophils # (auto) 2.37 K/uL (1.4-6.5); Neutrophils % (auto) 56.9 %
[2019-07-22 07:26] LABS: Albumin Globulin Ratio 0.5 (0.9-2); Albumin Level 1.8 gm/dl (3.4-5.0); BUN Creatinine Ratio 16.5 (10-20); Bilirubin,Total 1.2 mg/dl (0.2-1); Calcium 7.6 mg/dl (8.5-10.1); Creatinine Clr Calc Pharmacy 77.1 ml/min; Est GFR (African American) 103.9; Est GFR (Non-African American) 89.7; Globulin 3.4 gm/dl (2.5-4.0); Potassium 3.8 mmol/L (3.5-5.1); Total Protein 5.2 gm/dl (6.4-8.2)
[2019-07-22] MEDS: FERROUS SULFATE 325 MG TAB PO SCH ×2 (07:57→18:04)
[2019-07-22] MEDS: GABAPENTIN 300 MG CAP PO SCH ×2 (07:57→21:20)
[2019-07-22] MEDS: MAGNESIUM OXIDE 400 MG TAB PO SCH (07:57)
[2019-07-22] MEDS: LACTULOSE SYRUP 20 GM/30 ML UDC PO SCH ×2 (07:57→21:19)
[2019-07-22] MEDS: FOLIC ACID 1 MG TAB PO SCH (07:57)
[2019-07-22] MEDS: PANTOprazole 40 MG TAB PO SCH ×2 (07:57→18:04)
[2019-07-22] MEDS: CHOLECALCIFEROL 1,000 UNITS TAB PO SCH (07:57)
[2019-07-22] MEDS: RIFAXIMIN 550 MG TABLET PO SCH ×2 (07:58→21:24)
[2019-07-22] MEDS ORDERED: INSULIN GLARGINE SOLOSTAR 100 UNITS/ML 3 ML PEN SQ SCH (09:00)
[2019-07-22] MEDS: INSULIN ASPART 100 UNITS/ML 3 ML PEN SC SCH ×4 (09:37→21:25)
[2019-07-22] MEDS: INSULIN GLARGINE SOLOSTAR 100 UNITS/ML 3 ML PEN SQ SCH ×2 (09:37→21:27)
--- NOTE | 2019-07-22 14:06 | Pharmacy Report ---
Glycemic Control Progress Note - Date of Service July 22, 2019 - Scope Glycemic Pharmacist consulted for glycemic control to write orders per [facility] inpatient glycemic control protocol. - Objective Accuchecks BSG(last 24 hours):: 07/21/19 07/21/19 07/21/19 15:35 15:41 17:17 Glucose POC Glucose 379 H* 344 H* 273 H 07/21/19 07/22/19 07/22/19 20:40 06:12 08:33 Glucose 74 POC Glucose 257 H 113 H 07/22/19 12:10 Glucose POC Glucose 246 H - Recent Pertinent Medications The patient is currently receiving: * Basal insulin: Lantus 20 units every 12 hours * Correctional Insulin: Novolog Correction per scale ACHS Goal Range: Low 110 mg/dL - High 140 mg/dL Correction Factor: 15 mg/dL/unit * Prandial insulin: Per carb ratio of 1 unit per 4 grams CHO consumed - Outpatient Anti-Diabetic Meds BASAGLAR 40 UNITS bid PLUS NOVOLOG SSI - Assessment & Plan ASSESSMENT: * See progress note from 07/21/19 for more background info, in short: * Pt receiving SQ basal bolus insulin regimen for hyperglycemia secondary to baseline DM (outpatient regimen on hold). * Patient is currently receiving an average of 98 units of insulin per day * 50 units of basal insulin * 48 units of prandial/correctional insulin * BSGs ranging 75 - 346 mg/dl over the past 24hrs * Changes needed to insulin regimen: * AM Fasting BSG = 113 mg/dl. This is in goal range for patient based on inpatient targets and co-morbidities. Therefore Basal insulin will be continued at between 35-40 units daily. Patient may require less. * Post-prandial BSGs were elevated yesterday. Lunch today was elevated due to Novolog administration only 2 hours prior. Continue tightened parameters * Total daily dose = 100 units. PLAN FOR INPATIENT GLYCEMIC CONTROL: * DECREASING Lantus 20 units SQ this morning then 20 units SQ BID (15 units if blood sugar under 140 mg/dL) * Continuing correction factor of 15 mg/dl/unit * Continuing carb ratio of 1 unit per 4 grams CHO consumed * Continuing goal range of Low 110 mg/dL - High 140 mg/dL * Please note that the plan above was derived based on current level of insulin resistance and hospital stress. These recommendations are appropriate for inpatient admission only. Plan of care upon discharge will need to be reassessed to avoid potential outpatient hypo/hyperglycemia. Thank you.
[2019-07-22] MEDS: ACETAMINOPHEN 325 MG TAB PO PRN (16:24)
[2019-07-22] MEDS: ATORVASTATIN 20 MG TAB PO SCH (21:20)
[2019-07-22] MEDS: NADOLOL 40 MG TAB PO SCH (21:21)
[2019-07-22] MEDS: ESCITALOPRAM OXALATE 10 MG TAB PO SCH (21:21)
[2019-07-22] MEDS: ROPINIROLE HCL 0.25 MG TABLET PO SCH (21:23)
--- NOTE | 2019-07-22 22:27 | Hospitalist Progress Note ---
Date of Service July 22, 2019 Assessment & Plan (1) Hepatic encephalopathy: Unclear inciting event. No signs of infection. Slowly improving. -CT head negative -AMS improving, likely secondary to hyperammonemia. -Continue home lactulose and rifaximin, titrate up to achieve 2-3 bowel movem ents per day - PT/OT (2) Cirrhosis of liver: -Follows with Guzman Sam -Not yet undergoing treatment for her liver cancer -Has a history of esophageal varices, continue nadolol (3) Cholelithiasis: See above (4) Anemia: Anemia of chronic disease. - Hgb stable at 9.1 - No indications of bleeding. Monitor. (5) Ureterolithiasis: Patient urology recommendations. Right renal stone as well as a right proximal ureteral stone with some obstruction. - Urology recommended outpatient treatment and allow her acute issues to resolve - If she begins to experience definitive renal colic or related symptoms urology can potentially intervene sooner. (6) Thrombocytopenia: Related to patient multiple comorbidities, liver disease. No active signs of bleeding. - Today plts stable at 50's. (7) Hypokalemia: Potassium replenished, continue monitoring. (8) Diabetes: -Decrease home glargine from 40 units twice daily to 20 units twice daily given poor p.o. intake because of AMS -Placed on insulin sliding scale with BSG AC/HS - Stable on . (9) HTN (hypertension): Continue home medicine: Furosemide 20 mg po daily, atorvastatin 20 mg p.o. nightly. Nadolol 20 mg p.o. every afternoon. (10) Discharge planning issues: Patient will be most likely discharged home when clinically stable. - Getting set up with home health with case management. Still not ready. Subjective Patient reports no new symptoms. Review of Systems Review of Systems: All systems reviewed & are unremarkable except as noted in HPI & below Physical Exam Physical Exam: Constitutional: cooperative and awake, slow, in regards to her ability to converse Eyes: EOM intact bilaterally; no conjunctival abnormality ENMT: external ear and nose normal, oropharynx normal Neck: trachea midline, no thyromegaly normal visual inspection Respiratory: normal respiratory effort, lungs clear to auscultation no respiratory distress Cardiovascular: RRR, no murmur, no edema Gastrointestinal (Abdomen): Inspection/Auscultation: abdomen normal to inspection; abdomen not distended Musculoskeletal: no cyanosis or clubbing, extremities motor strength 5/5 Skin: no rashes, warm and dry Neurologic: moves all extremities and awake Psychiatric: Orientation: alert, oriented to person and place, not to time, and cooperative Results & Data Vital Signs (Past 12 Hours) Vital Signs Temp Pulse Resp BP Pulse Ox 07/22/19 21:17 36.5 C 63 16 127/60 100 07/22/19 15:38 36.6 C 66 16 124/61 100 PG Care Time/CCT Total # of Minutes Spent Total Time Spent with Patient: Total time spent is greater than 50% in coordination of care (as documented) at patient's floor/unit and/or counseling patient: (1) Anemia Anemia type: unspecified type Qualified Code(s): D64.9 - Anemia, unspecified (2) Cirrhosis of liver Hepatic cirrhosis type: other cirrhosis Qualified Code(s): K74.69 - Other cirrhosis of liver (3) Cholelithiasis Biliary obstruction: without biliary obstruction Cholecystitis presence: without cholecystitis Cholelithiasis location: gallbladder Qualified Code(s): K80.20 - Calculus of gallbladder without cholecystitis without obstruction
[2019-07-23] MEDS: CHOLECALCIFEROL 1,000 UNITS TAB PO SCH (08:58)
[2019-07-23] MEDS: GABAPENTIN 300 MG CAP PO SCH ×2 (08:58→21:33)
[2019-07-23] MEDS: RIFAXIMIN 550 MG TABLET PO SCH ×2 (08:59→21:35)
[2019-07-23] MEDS: MAGNESIUM OXIDE 400 MG TAB PO SCH (08:59)
[2019-07-23] MEDS: FERROUS SULFATE 325 MG TAB PO SCH ×2 (09:00→18:10)
[2019-07-23] MEDS: PANTOprazole 40 MG TAB PO SCH ×2 (09:00→18:11)
[2019-07-23] MEDS: FOLIC ACID 1 MG TAB PO SCH (09:00)
[2019-07-23] MEDS: LACTULOSE SYRUP 20 GM/30 ML UDC PO SCH ×2 (09:01→21:42)
[2019-07-23] MEDS: INSULIN GLARGINE SOLOSTAR 100 UNITS/ML 3 ML PEN SQ SCH ×2 (09:02→21:28)
[2019-07-23] MEDS: INSULIN ASPART 100 UNITS/ML 3 ML PEN SC SCH ×4 (09:03→21:30)
--- NOTE | 2019-07-23 14:06 | Pharmacy Report ---
Glycemic Control Progress Note - Date of Service July 23, 2019 - Scope Glycemic Pharmacist consulted for glycemic control to write orders per [facility] inpatient glycemic control protocol. - Objective Accuchecks BSG(last 24 hours):: 07/22/19 07/22/19 07/23/19 17:03 20:54 08:09 POC Glucose 228 H 273 H 116 H 07/23/19 12:33 POC Glucose 188 H - Recent Pertinent Medications The patient is currently receiving: * Basal insulin: Lantus 20 units every 12 hours (15 UNITS IF BLOOD SUGAR LESS THAN 140 MG/DL) * Correctional Insulin: Novolog Correction per scale ACHS Goal Range: Low 110 mg/dL - High 140 mg/dL Correction Factor: 15 mg/dL/unit (35 MG/DL/UNIT) * Prandial insulin: Per carb ratio of 1 unit per 4 grams CHO consumed - Outpatient Anti-Diabetic Meds Basaglar 40 units BID + Novolog - Assessment & Plan ASSESSMENT: * See progress note from 07/21/19 for more background info, in short: * Pt receiving SQ basal bolus insulin regimen for hyperglycemia secondary to baseline DM (outpatient regimen on hold). * Patient is currently receiving an average of 93 units of insulin per day * 40 units of basal insulin * 53 units of prandial/correctional insulin * BSGs ranging 113 - 273 mg/dl over the past 24hrs * Changes needed to insulin regimen: * AM Fasting BSG = 116 mg/dl. This is in goal range for patient based on inpatient targets and co-morbidities. Therefore Basal insulin will be continued at 40 units/day. * Post-prandial BSGs trended upwards so tightened CF/CR. * Total daily dose = ~100 units. Patient requires more bolus insulin than basal insulin. PLAN FOR INPATIENT GLYCEMIC CONTROL: * Continuing Lantus 20 units SQ BID (Lantus 15 units if blood sugar less than 110 mg/L) * Changing correction factor to 12 mg/dl/unit * Changing carb ratio to 1 unit per 3 grams CHO consumed * Continuing goal range of Low 110 mg/dL - High 140 mg/dL * Please note that the plan above was derived based on current level of insulin resistance and hospital stress. These recommendations are appropriate for inpatient admission only. Plan of care upon discharge will need to be reassessed to avoid potential outpatient hypo/hyperglycemia. Thank you.
[2019-07-23] MEDS: ACETAMINOPHEN 325 MG TAB PO PRN (15:36)
--- NOTE | 2019-07-23 21:22 | Hospitalist Progress Note ---
Date of Service July 23, 2019 Assessment & Plan (1) Hepatic encephalopathy: Unclear inciting event. No signs of infection. Slowly improving. -CT head negative -AMS improving, likely secondary to hyperammonemia. -Continue home lactulose and rifaximin, titrate up to achieve 2-3 bowel movem ents per day - PT/OT Each day she is improving, hopefully patient can be discharged on 07/24 (2) Cirrhosis of liver: -Follows with Guzman Sam -Not yet undergoing treatment for her liver cancer -Has a history of esophageal varices, continue nadolol (3) Cholelithiasis: See above (4) Anemia: Anemia of chronic disease. - Hgb stable at 9.1 - No indications of bleeding. Monitor. (5) Ureterolithiasis: Patient urology recommendations. Right renal stone as well as a right proximal ureteral stone with some obstruction. - Urology recommended outpatient treatment and allow her acute issues to resolve - If she begins to experience definitive renal colic or related symptoms urology can potentially intervene sooner. (6) Thrombocytopenia: Related to patient multiple comorbidities, liver disease. No active signs of bleeding. - plts stable at 59. (7) Hypokalemia: Potassium replenished, continue monitoring. (8) Diabetes: -Decrease home glargine from 40 units twice daily to 20 units twice daily given poor p.o. intake because of AMS -Placed on insulin sliding scale with BSG AC/HS - Stable on 07/23. (9) HTN (hypertension): Continue home medicine: Furosemide 20 mg po daily, atorvastatin 20 mg p.o. nightly. Nadolol 20 mg p.o. every afternoon. (10) Discharge planning issues: Patient will be most likely discharged home when clinically stable. - Getting set up with home health with case management. porposed discharge date :07/24 Subjective Patient reports feeling well. She has no new complaints at this moment. Review of Systems Review of Systems: All systems reviewed & are unremarkable except as noted in HPI & below Physical Exam Physical Exam: Constitutional: cooperative and awake, slow, in regards to her ability to converse Eyes: EOM intact bilaterally; no conjunctival abnormality ENMT: external ear and nose normal, oropharynx normal Neck: trachea midline, no thyromegaly normal visual inspection Respiratory: normal respiratory effort, lungs clear to auscultation no respiratory distress Cardiovascular: RRR, no murmur, no edema Gastrointestinal (Abdomen): Inspection/Auscultation: abdomen normal to inspection; abdomen not distended Musculoskeletal: no cyanosis or clubbing, extremities motor strength 5/5 Skin: no rashes, warm and dry Neurologic: moves all extremities and awake Psychiatric: Orientation: alert, oriented to person and place ([facility]), time (knows month (July), day of week (Wednesday), and year (2018), does not know specific date), and cooperative Results & Data Vital Signs (Past 12 Hours) Vital Signs Temp Pulse Resp BP Pulse Ox 07/23/19 15:41 36.5 C 66 16 132/66 94 PG Care Time/CCT Total # of Minutes Spent Total Time Spent with Patient: Total time spent is greater than 50% in coordination of care (as documented) at patient's floor/unit and/or counseling patient: (1) Anemia Anemia type: unspecified type Qualified Code(s): D64.9 - Anemia, unspecified (2) Cirrhosis of liver Hepatic cirrhosis type: other cirrhosis Qualified Code(s): K74.69 - Other cirrhosis of liver (3) Cholelithiasis Biliary obstruction: without biliary obstruction Cholecystitis presence: without cholecystitis Cholelithiasis location: gallbladder Qualified Code(s): K80.20 - Calculus of gallbladder without cholecystitis without obstruction
[2019-07-23] MEDS: ESCITALOPRAM OXALATE 10 MG TAB PO SCH (21:33)
[2019-07-23] MEDS: NADOLOL 40 MG TAB PO SCH (21:34)
[2019-07-23] MEDS: ATORVASTATIN 20 MG TAB PO SCH (21:35)
[2019-07-23] MEDS: ROPINIROLE HCL 0.25 MG TABLET PO SCH (21:36)
[2019-07-24 06:58] VITALS: O2SAT 98
--- NOTE | 2019-07-24 08:12 | Urology Progress Note ---
Date of Service July 24, 2019 Assessment & Plan (1) Ureterolithiasis: 68yo F admitted with hepatic encephalopathy, with known right ureteral stone. Remains asymptomatic and okay for discharge home today from perspective. VS and Cr stable (last check on 07/22), no acute pain or decompensation. Will plan to reschedule cystoscopy, right ureteronephroscopy, right retrograde pyelogram, ureteral stent placement, tentatively this . Arrangements to be made by our outpatient office, will contact sonEmir, with details. Thank you for allowing us to participate in the acute care of Ms. Rangel. Please reconsult us with additional questions, concerns or changes in patient status. Subjective Pt sitting up, bathing herself in bathroom this AM. In no acute distress, denies flank or suprapubic pain. Denies nausea, f/c. TOOL ROOM SUPERVISOR at bedside with patient. Per notes, plan for discharge home today. VSS, afebrile. Review of Systems Review of Systems: All systems reviewed & are unremarkable except as noted in HPI & below Physical Exam Physical Exam: Alert and Oriented to self Resp rate regular Results & Data Vital Signs (Past 12 Hours) Vital Signs Temp Pulse Resp BP Pulse Ox 07/24/19 06:57 36.9 C 62 18 122/57 L 98 07/23/19 23:26 36.6 C 61 16 116/52 L 100 07/23/19 21:42 63 124/58 L PG Care Time/CCT Total # of Minutes Spent Total Time Spent with Patient: Total time spent is greater than 50% in coordination of care (as documented) at patient's floor/unit and/or counseling patient:
[2019-07-24] MEDS: MAGNESIUM OXIDE 400 MG TAB PO SCH (08:13)
[2019-07-24] MEDS: CHOLECALCIFEROL 1,000 UNITS TAB PO SCH (08:13)
[2019-07-24] MEDS: FERROUS SULFATE 325 MG TAB PO SCH ×2 (08:13→17:23)
[2019-07-24] MEDS: GABAPENTIN 300 MG CAP PO SCH (08:13)
[2019-07-24] MEDS: FOLIC ACID 1 MG TAB PO SCH (08:13)
[2019-07-24] MEDS: RIFAXIMIN 550 MG TABLET PO SCH (08:13)
[2019-07-24] MEDS: LACTULOSE SYRUP 20 GM/30 ML UDC PO SCH (08:14)
[2019-07-24] MEDS: PANTOprazole 40 MG TAB PO SCH ×2 (08:14→17:23)
[2019-07-24] MEDS: INSULIN GLARGINE SOLOSTAR 100 UNITS/ML 3 ML PEN SQ SCH (08:21)
[2019-07-24] MEDS: INSULIN ASPART 100 UNITS/ML 3 ML PEN SC SCH ×3 (08:23→17:23)
[2019-07-24 09:56] LABS: Hematocrit (blood only) 27.9 % (37-47); Hemoglobin 9.7 g/dL (12.0-16.0); Mean Corpuscular Hemoglobin 36.2 pg (25-34); Mean Corpuscular Hgb Conc 34.8 g/dL (32-36); Mean Corpuscular Volume 104.1 fL (80-100); RDW Coefficient of Variation 15.6 % (11.5-14.5); Red Blood Count 2.68 M/uL (4.2-5.4); White Blood Count 3.39 K/uL (4.8-10.8)
[2019-07-24 10:06] LABS: Mean Platelet Volume 10.8 fL (7.4-10.4); Platelet Count 61 K/uL (130-400)
[2019-07-24 10:11] LABS: INR 1.3 (0.9-1.1); Prothrombin Time 12.9 Seconds (9.0-12.0)
[2019-07-24 10:15] LABS: Basophils # (auto) 0.01 K/uL (0-0.2); Basophils % (auto) 0.3 %; Eosinophils # (auto) 0.14 K/uL (0-0.5); Eosinophils % (auto) 4.1 %; Lymphocytes # (auto) 0.94 K/uL (1.2-3.4); Lymphocytes % (auto) 27.7 %; Monocytes # (auto) 0.33 K/uL (0.11-0.59); Monocytes % (auto) 9.7 %; Neutrophils # (auto) 1.97 K/uL (1.4-6.5); Neutrophils % (auto) 58.2 %
[2019-07-24 10:19] LABS: BUN Creatinine Ratio 14.6 (10-20); Calcium 8.1 mg/dl (8.5-10.1); Creatinine Clr Calc Pharmacy 66.2 ml/min; Est GFR (African American) 89.9; Est GFR (Non-African American) 77.6; Potassium 4.4 mmol/L (3.5-5.1)
[2019-07-24 10:32] LABS: Albumin Globulin Ratio 0.5 (0.9-2); Bilirubin,Total 1.2 mg/dl (0.2-1); Globulin 3.9 gm/dl (2.5-4.0); Total Protein 5.9 gm/dl (6.4-8.2)
--- NOTE | 2019-07-24 13:45 | Pharmacy Report ---
Glycemic Control Progress Note - Date of Service July 24, 2019 - Scope Glycemic Pharmacist consulted for glycemic control to write orders per [facility] inpatient glycemic control protocol. - Objective Accuchecks BSG(last 24 hours):: 07/23/19 07/23/19 07/24/19 17:09 20:28 08:01 Glucose POC Glucose 220 H 223 H 111 H 07/24/19 07/24/19 09:34 12:06 Glucose 186 H POC Glucose 258 H - Recent Pertinent Medications The patient is currently receiving: * Basal insulin: Lantus 20 units every 12 hours * Correctional Insulin: Novolog Correction per scale ACHS Goal Range: Low 110 mg/dL - High 140 mg/dL Correction Factor: 12 mg/dL/unit * Prandial insulin: Per carb ratio of 1 unit per 3 grams CHO consumed * Oral Agents: - Outpatient Anti-Diabetic Meds Basaglar 40 units BID + Novolog - Assessment & Plan ASSESSMENT: * See progress note from 07/23/19 for more background info, in short: * Pt receiving SQ basal bolus insulin regimen for hyperglycemia secondary to baseline DM (outpatient regimen on hold). * Patient is currently receiving an average of 119 units of insulin per day * 80 units of basal insulin * 79 units of prandial/correctional insulin * BSGs ranging 116 - 223 mg/dl over the past 24hrs * Changes needed to insulin regimen: * AM Fasting BSG = 111 mg/dl. This is in goal range for patient based on inpatient targets and co-morbidities. Therefore Basal insulin will be continued. * Post-prandial BSGs trended upwards yesterday. Tighten CF/CR. * Total daily dose = ~120 units. PLAN FOR INPATIENT GLYCEMIC CONTROL: * Continuing Lantus 20 units SQ BID (15 units if blood sugar below 110 mg/dL) * TIGHTENING correction factor of 10 mg/dl/unit * TIGHTENING carb ratio to 1 unit per 2.5 grams CHO consumed * Continuing goal range of Low 110 mg/dL - High 140 mg/dL RECOMMENDATIONS FOR DISCHARGE: * HbA1C likely unreliable due to comorbidities. * Patient's insulin requirements here in house are drastically different than outpatient. Spoke with patient's son on the phone. Patient takes Basaglar 40 units twice daily plus Novolog based upon blood sugars. Takes BSGs at breakfast, supper, and bedtime. Denies hypoglycemia. * I would recommend follow-up with primary care doctor with review of BSG logs. It is possible that patient could be started on fixed dose of Novolog at least 10 units with meals + high dose scale plus Basaglar 20-30 units twice daily. * I would recommend that PCP consult Bo Gonzalez, pharmacist with [facility], to work with patient to obtain the best blood sugar control possible. Thank you.
[2019-07-24 15:00] VITALS: BP 129/65; PULSE 56; TEMP 97.7
--- NOTE | 2019-07-24 17:39 | Discharge Summary ---
Date of Service July 24, 2019 Admission HPI Per Admitting Provider Ms. Rangel is a 68 year old female with a past medical history of nonalcoholic liver cirrhosis, liver cancer, esophageal varices, type 2 diabetes mellitus, COPD, GERD, restless leg syndrome, dyslipidemia, and depression who presented to [facility] due to lethargy and altered mental status. History is largely provided by her son, as Ms. Rangel is currently disoriented. Per her son, he noticed that approximately 2 days ago she became confused and was unsure where she was. He states that this was very similar to her behavior prior to her presentation to [facility] last month, when she was admitted for hepatic encephalopathy. He states that he administers her medication, and reports that she has been compliant. He states that she has not had any fever or chills at home, or exhibited a cough or breathing difficulties. He does note that she has kidney stones, and has seen urology in clinic. She is meant to follow-up with them on Wednesday for lithotripsy. With regards to her liver cancer, this was diagnosed recently, she follows with Guzman Sam. She has not yet started treatment, but her son states that they are thinking about beginning radiation. She reportedly was a heavy drinker in the past, as well as a smoker, however quit both of these 15 years ago. Admission Exam Per Admitting Provider Constitutiona: WD/WN, vitals as above no acute distress Eyes: PERRL, conjunctivae normal, anicteric sclerae ENMT: external ear and nose normal, oropharynx normal (dry mucous membranes) Respiratory: normal respiratory effort, lungs clear to auscultation Cardiovascular: RRR, no murmur, no edema Vessels: posterior tibial pulses present and dorsalis pedis pulses present Extremities: normal capillary refill; no calf tenderness and no pedal edema Gastrointestinal (Abdomen): Percussion/Palpation: + abdomen tender (discomfort noted throughout abdomen) and abdomen soft; no guarding, abdomen not rigid and no ascites Musculoskeletal: no cyanosis or clubbing, extremities motor strength 5/5 Skin: no rashes, warm and dry Neurologic: PERRL, EOMI, accommodation nl, no face palsy, no dysarthria moves all extremities; no focal motor deficits Psychiatric: Orientation: alert Oriented to person and place, but not time Principal Diagnosis Hepatic encephalopathy Type 2 diabetes mellitus with hyperglycemia Discharge Exam Constitutional well developed and cooperative; no acute distress and not lethargic Eyes + anicteric sclerae; normal pupil size ENMT external ear and nose normal, oropharynx normal Neck normal visual inspection and trachea midline Respiratory normal respiratory effort, lungs clear to auscultation no respiratory distress Cardiovascular RRR, no murmur, no edema Extremities: normal capillary refill; no calf tenderness and no pedal edema Gastrointestinal (Abdomen) Inspection/Auscultation: abdomen normal to inspection; abdomen not distended Percussion/Palpation: abdomen soft; abdomen nontender, no guarding, abdomen not rigid and no ascites Musculoskeletal no cyanosis or clubbing, extremities motor strength 5/5 Skin no rashes, warm and dry Neurologic moves all extremities and awake; no focal motor deficits and not confused (back to her baseline as per her brother) Psychiatric Orientation: alert, oriented x 3 and cooperative Affect: euthymic affect Discharge Data Allergies Allergy/AdvReac Type Severity Reaction Status Date / Time methyl salicylate Allergy Mild RASH Verified 07/28/19 08:07 nickel Allergy Mild RASH Verified 07/28/19 08:07 zinc Allergy Mild RASH Verified 07/28/19 08:07 diphenhydramine AdvReac Intermediate BURNING Verified 07/28/19 08:07 EYES,DIZZY,BLISTERS Consultations 07/18/19 01:56 ED Decision to Admit Stat 07/18/19 04:43 Consult Urology Routine Procedures Performed Operation Date: 07/24/19 08:40 <No data on this case meets the specified criteria> Ordered Studies 07/17/19 23:28 CT abd pelvis IV con only Urgent CT head/brain wo con Urgent Hospital Course (1) Hepatic encephalopathy: Telma Rangel is a 68 year old female with known liver cirrhosis admitted to [facility] from July 18 to 2018 due to lethargy and change in mental status. She was diagnosed with hepatic encephalopathy and treated with lactulose and rifaximin to continue to aim for 2-3 bowel movements a day. Also discontined ropinirole as this may be contributing towards her confusion episodes. She also has labile glucose control and appears to benefit from meal time insulin to help with this. Therefore Basaglar was reduced to 30 units twice a day but added Novolog 10 units meal covereage with her previously prescribed correction factor. Unclear if her labile glucose control contributed towards her admission (2) Cirrhosis of liver: (3) Cholelithiasis: (4) Anemia: (5) Ureterolithiasis: (6) Thrombocytopenia: (7) Hypokalemia: (8) Diabetes: (9) HTN (hypertension): Total Time Total Time Spent Total Time Spent (In Minutes): 50 Total Time Includes: Examination of the Patient, Discharge Planning and Medication Reconciliation Discharge Plan Discharge Items Patient Disposition: Home - Home Health Services Reason For Visit: HEPATIC ENCEPHALOPATHY, KIDNEY STONES Discharge Diagnosis: Hepatic encephalopathy Type 2 diabetes mellitus with hyperglycemia Condition on Discharge: Fair Activity: Resume your previous activity Non-emergency contact: Primary Care Provider Call non-emergency contact if: you have any medication questions and your symptoms worsen Follow-up/Referrals: Laila Thakkar MD [Primary Care Provider] - 07/28/19 1:30 pm (Please, follow up at [facility] with Dr. Thakkar on WednesdayJuly 28 at 1:30 pm. *If you need to change this appointment, call the office at [phone]) Diet: Carb Consistent or DM2 Addtl Attending Provider Instructions: You were admitted to [facility] from July 18 to 2018 due to lethargy and change in mental status. You were diagnosed with hepatic encephalopathy and treated with lactulose and rifaximin to continue to aim for 2-3 bowel movements a day. Please see change in lactulose prescription as below. Also recommend discontinuing ropinirole as this may be contributing towards your confusion episodes. Your insulin regimen has also been changed to help manage spikes in your glucose. Please reduce your basal (Basaglar) insulin to 30 units twice a day but to compensate for this we have added Novolog 10 units to cover your meals. Please take this in addition to your previously prescribed correction factor. Rapid changes to your glucose levels can precipitate these confusion episodes. Please take your glucose levels before each meal and at night and record the values to follow up with your PCP for ongoing management of this. Pending Studies at Discharge: No Stand-Alone Forms: [facility], Smoking Cessation Medications and DC Order Prescriptions: New Novolog Flexpen U-100 Insulin 100 unit/mL (3 mL) Insulin Pen 10 units subcut TIDM Qty: 15 RF: 0 Continued gabapentin 300 mg capsule 300 mg PO BID Qty: 60 RF: 5 Novolog Flexpen U-100 Insulin 100 unit/mL (3 mL) insulin pen See Rx Instructions SUBCUT .COMPLEX Qty: 15 RF: 1 lactulose [Enulose] 10 gram/15 mL solution 30 ml PO DIRECTED PRN (Reason: elevated ammmonia ) Qty: 189 RF: 5 furosemide 20 mg tablet See Rx Instructions .ROUTE .COMPLEX Qty: 60 RF: 11 (DME) lancets 30 gauge misc See Dose Instructions .ROUTE .MEDSUPPLY RF: 0 atorvastatin 20 mg tablet 20 mg PO HS Qty: 90 RF: 0 (DME) pen needle, diabetic [BD Teressa 2nd Gen Pen Needle] 32 gauge x 5/32" needle See Rx Instructions .ROUTE .MEDSUPPLY Qty: 100 RF: 0 cholecalciferol (vitamin D3) 2,000 unit Capsule 2,000 unit PO QAM RF: 0 nadolol 20 mg tablet 20 mg PO QPM RF: 0 pantoprazole 40 mg tablet,delayed release (DR/EC) 40 mg PO BIDM RF: 0 folic acid 1 mg tablet 1 mg PO DAILY RF: 0 escitalopram oxalate 10 mg tablet 10 mg PO HS RF: 0 Refresh Liquigel 1 % Drops, Liquid Gel 1 drp OPB DAILY RF: 0 magnesium oxide 400 mg (241.3 mg magnesium) tablet 400 mg PO DAILY RF: 0 ferrous sulfate 325 mg (65 mg iron) tablet 325 mg PO BIDM RF: 0 Xifaxan 550 mg tablet 550 mg PO BID RF: 0 Changed Basaglar KwikPen U-100 Insulin 100 unit/mL (3 mL) insulin pen See Rx Instructions .ROUTE .COMPLEX Qty: 15 RF: 11 Discontinued docusate sodium [Colace] 100 mg capsule 200 mg PO DAILY Qty: 60 RF: 5 ropinirole 0.5 mg tablet 0.5 mg PO HS RF: 0 lactulose 20 gram/30 mL Solution 2 gm PO QID Qty: 3000 RF: 0 No Action amoxicillin 500 mg Capsule 500 mg PO TID 7 Days Qty: 21 RF: 0 lactulose 20 gram/30 mL Solution 20 gm PO BID Qty: 3000 RF: 0 Discharge Orders: Discharge Order (Routine); Ordered 07/24/19 Ordered By: Aidan Avila Admission Data Admit Date/Time: 07/18/19 03:27 Attending Provider: Aidan Avila Admit Provider: Kishan Carbajal Primary Care Provider: Laila Thakkar Other Providers: Bong Aguilar ; [facility] ; Ehsan Nettles Other Interventions: Discharge Summary Assessment (RN) Last Done: 07/24/19 18:19 DC Date/Time DO NOT enter until pt leaves facility: 07/24/19 18:44
== END 2019-07-24 18:44 | disposition home health service (06) | DRG 442 ==
LOC: ED 23:00 → SUATTDRO 07-18 03:27 → 3N 07-18 03:27

== ENCOUNTER 2019-07-28 07:42 | Inpatient (IN) ==
[2019-07-28] MEDS ORDERED: SODIUM CHLORIDE 0.9% 500 ML IV SCH (08:00)
--- NOTE | 2019-07-28 08:07 | Emergency Department Note ---
Entered by Tosha Brown acting as a scribe for History of Present Illness General Chief complaint: Illness Time Seen by Provider: 07/28/19 07:45 Source: patient, family (son) and EMS Mode of arrival: EMS History of Present Illness Onset (ago): day(s) (last night) Location: head Pain Consistency: + other (episode) Quality: + other (confusion) Associated symptoms: + other (lethargy, bloody stool, black tarry stools, lower extremity edema, abdominal pain) The patient is a 68 year old female that is presenting to the Emergency Room with complaints of an episode of confusion that started last night. The patient is lethargic and minimally responsive. She arrived to the ED via EMS. EMS reports that the patient was recently discharged from the hospital on 07/24/19 with hepatic encephalopathy and hypoglycemia. EMS states that the patient was thought to be altered this morning and that she has black tarry stools. EMS notes that the patient was lethargic when they arrived. EMS states that the patients legs were edematous. EMS notes that the patient had a blood glucose of 78 mg/dL when they arrived. EMS reports that the patient was afebrile with a h eart rate in the 50-60bpm range. The patient reports that she is here to get "everything figured out." She endorses some abdominal pain. She is able to state that she is at the hospital. The patients son reports that the patient appeared confused last night before going to bed. Her son states that the patient appeared to not know where she was or where she was going. Her son reports that the patient said she had to go to the bathroom but then did not go. Her son states that the patient started wiping herself over her underwear. Her son notes that the patient had 2-3 episodes of bloody stool 2 days ago. Her son reports that the patient had her Lactulose and Insulin dosages changed while she was in the hospital. Her son notes that her blood glucose levels were all over the place while she was in the hospital. Her son states that the patient did not mention any abdominal pain to him this morning. Her son denies that the patient has had any head trauma recently. Her son reports that the patient has a kidney stone that was supposed to be removed. Her son notes that they occasionally have difficulty getting the blood glucose monitor to register her blood and states that he believes her blood is too thin. Home Medications Home Medications Medication Instructions Recorded Confirmed Type cholecalciferol (vitamin D3) 2,000 unit PO QAM 04/13/18 07/28/19 History gabapentin 300 mg capsule 300 mg PO BID #60 cap 03/01/19 07/28/19 Rx Refresh Liquigel 1 drp OPB DAILY 04/14/19 07/28/19 History ferrous sulfate 325 mg PO BIDM 04/14/19 07/28/19 History magnesium oxide 400 mg PO DAILY 04/14/19 07/28/19 History lancets 30 gauge ea 04/19/19 07/05/19 History insulin aspart U-100 100 unit/mL See Rx Instructions SUBCUT 04/21/19 07/28/19 Rx (3 mL) subcutaneous pen .COMPLEX #15 ml lactulose 10 gram/15 mL oral 30 ml PO DIRECTED PRN #1892 ml 05/17/19 07/28/19 Rx solution escitalopram oxalate 10 mg PO HS 06/15/19 07/28/19 History folic acid 1 mg PO DAILY 06/15/19 07/28/19 History nadolol 20 mg PO QPM 06/15/19 07/28/19 History pantoprazole 40 mg PO BIDM 06/15/19 07/28/19 History atorvastatin 20 mg tablet 20 mg PO HS #90 tab 06/26/19 07/28/19 Rx pen needle, diabetic 32 gauge x #100 ea 06/26/19 07/05/19 Rx 5/32" furosemide 20 mg tablet See Rx Instructions .ROUTE 07/11/19 07/28/19 Rx .COMPLEX #60 tablet Xifaxan 550 mg PO BID 07/12/19 07/28/19 History Basaglar KwikPen U-100 Insulin See Rx Instructions .ROUTE 07/24/19 07/28/19 Rx .COMPLEX #15 milliliter insulin aspart U-100 [Novolog 10 units SUBCUT TIDM #15 ml 07/24/19 07/28/19 Rx Flexpen U-100 Insulin] lactulose 10 gm PO BID #3000 ml 07/24/19 07/28/19 Rx Allergies Allergy/AdvReac Type Severity Reaction Status Date / Time methyl salicylate Allergy Mild RASH Verified 07/28/19 08:07 nickel Allergy Mild RASH Verified 07/28/19 08:07 zinc Allergy Mild RASH Verified 07/28/19 08:07 diphenhydramine AdvReac Intermediate BURNING Verified 07/28/19 08:07 EYES,DIZZY,BLISTERS Past Med/Surg History Medical History Anxiety Chronic back pain Cirrhosis FOLLOWS W/ [facility], MELD score 10. COPD (chronic obstructive pulmonary disease) (Chronic) Uses recuse inhaler ~ once/month Depression Diabetes mellitus, type 2 IDDM Esophageal varices Per EGD 11/30/2018: Nonbleeding grade 1 and small (<5 mm) esophageal varices. Hyperlipidemia Kidney stones Liver cancer DX 1-2 MONTHS AGO Migraine Neuropathy Osteoarthritis Pancytopenia (Acute) Poor historian Shortness of breath on exertion Skin cancer of face Sleep apnea PT UNABLE TO CONFIRM, DOES NOT USE ASSISTIVE DEVICE HS Surgical History History of arthroscopy of left shoulder History of arthroscopy of right knee History of bilateral cataract extraction History of carpal tunnel surgery of left wrist History of lithotripsy History of Mohs micrographic surgery for skin cancer History of tonsillectomy and adenoidectomy History of tooth extraction all teeth removed History of total abdominal hysterectomy and bilateral salpingo-oophorectomy Family History Brother Family history of diabetes mellitus Sister Family history of diabetes mellitus Other Family history non-contributory No family history of adverse response to anesthesia Social History Preferred Language: Estonian Communication Ability: Effective Visual Impairment: No Limitations Lan/Wan Engineer Required: No Beliefs That Will Affect Care: None Current Living Situation: Family Current Living Situation Comment: son Feels Safe at Home: Yes Smoking Status: Former smoker Second Hand Exposure: No ; Hx Alcohol Use: No Hx Substance Use: No Review of Systems See HPI for pertinent positives & negatives. and A total of 10 systems reviewed and were otherwise negative Physical Exam Vital Signs Vital Signs - 24 hr 07/28/19 07:52 07/28/19 08:21 07/28/19 08:30 Temperature 36.8 C Temperature Source Oral Pulse Rate 62 58 L Pulse Rate [Apical] 58 L Pulse Rate from SpO2 Sensor 58 L Respiratory Rate 18 14 12 Respiratory Effort / Characteristics Non-Labored Spontaneous Non-Labored Respiratory Depth Normal Normal Respiratory Pattern Regular Blood Pressure 126/53 L 125/53 L Blood Pressure [Right Arm] 136/57 L Blood Pressure Mean 77 89 Blood Pressure Mean [Right Arm] 83 Pulse Oximetry 97 97 98 Oxygen Delivery Method Room Air Room Air Room Air Sepsis Recent Fever Within 48 Hours No Sepsis New/Unexplained Change in Mental Status No Sepsis Action Taken by Nursing No Action Required 07/28/19 09:00 07/28/19 09:01 Temperature Temperature Source Pulse Rate 58 L 58 L Pulse Rate [Apical] Pulse Rate from SpO2 Sensor 58 L 58 L Respiratory Rate 13 13 Respiratory Effort / Characteristics Respiratory Depth Respiratory Pattern Blood Pressure 122/51 L Blood Pressure [Right Arm] Blood Pressure Mean 78 Blood Pressure Mean [Right Arm] Pulse Oximetry 96 95 Oxygen Delivery Method Sepsis Recent Fever Within 48 Hours Sepsis New/Unexplained Change in Mental Status Sepsis Action Taken by Nursing CONSTITUTIONAL/VITAL SIGNS: Reviewed / noted above. GENERAL: Non-toxic in appearance. Drowsy but awakens and answers questions appropriately. INTEGUMENTARY: Warm, dry, and [place]. HEAD: Normocephalic. EYES: without scleral icterus or trauma. ENT/OROPHARYNX: clear and moist. LYMPHADENOPATHY/NECK: Is supple without lymphadenopathy or meningismus. RESPIRATORY: Lungs clear and equal. CARDIOVASCULAR: Regular rate and rhythm. GI/ABDOMEN: Soft and nontender. No organomegaly or pulsatile mass. No rebound or guarding. Normal bowel sounds. RECTAL: Minimal light brown stool, guaiac positive. EXTREMITIES: Warm and well perfused. Chronic appearing pedal edema. BACK: No CVA tenderness. NEUROLOGICAL: Intact without focal deficits. PSYCHIATRIC: normal affect. MUSCULOSKELETAL: Normally developed with good muscle tone. Course Course 0747:The patient was evaluated in room B06. A complete history and physical examination was performed. 0936: I discussed the patients case with Dr. Bazan, [facility], who will evaluate the patient for further management and care. 0945: Upon reevaluation, the patient is resting comfortably. I discussed laboratory and radiographic results with the patient and her son. They verbalized agreement of the treatment plan. The patient will be evaluated for further management and care. Administered Medications Ceftriaxone Sodium (Rocephin) 1,000 mg in 50 mls @ 100 mls/hr IV NOW STA Stop: 07/28/19 10:04 Last Admin: 07/28/19 09:43 Dose: 100 mls/hr Documented by: [id number] Discontinued Medications Sodium Chloride (Nss) 500 mls @ 999 mls/hr IV .Q31M MELVI Stop: 07/28/19 08:30 Last Infusion: 07/28/19 09:02 Dose: 0 mls/hr Documented by: [id number] Admin: 07/28/19 08:20 Dose: 999 mls/hr Documented by: [id number] Lactulose (Chronulac) 20 gm PO NOW ONE Stop: 07/28/19 09:35 Last Admin: 07/28/19 09:43 Dose: 20 gm Documented by: [id number] Medical Decision Making Differential Diagnosis Differential includes acute coronary syndrome, myocardial infarction, CVA, TIA, anemia, infection, pneumonia, UTI, pyelonephritis, poor nutrition, dehydration, electrolyte disturbance,hypoglycemia. Medical Records Attestation: I reviewed the patient's medical records. Home Medications Current Medication List: was personally reviewed by me Laboratory Data Attestation: I reviewed the patient's lab results. Result diagrams: 07/28/19 07:50 07/28/19 07:50 Lab Results 07/28/19 07/28/19 07/28/19 Range/Units 07:50 07:50 07:50 WBC 3.23 L (4.8-10.8) K/uL RBC 2.36 L (4.2-5.4) M/uL Hgb 8.6 L (12.0-16.0) g/dL Hct 24.8 L (37-47) % MCV 105.1 H (80-100) fL MCH 36.4 H (25-34) pg MCHC 34.7 (32-36) g/dL RDW Std Deviation 60.9 H (36.4-46.3) fL RDW Coeff of Chloe 16.1 H (11.5-14.5) % Plt Count 64 L (130-400) K/uL MPV 11.2 H (7.4-10.4) fL Immature Gran % (Auto) 0.0 % Neut % (Auto) 50.5 % Lymph % (Auto) 32.2 % Charles % (Auto) 13.0 % Eos % (Auto) 4.0 % Baso % (Auto) 0.3 % Immature Gran # (Auto) 0.00 (0.00-0.02) K/uL Neut # (Auto) 1.63 (1.4-6.5) K/uL Lymph # (Auto) 1.04 L (1.2-3.4) K/uL Charles # (Auto) 0.42 (0.11-0.59) K/uL Eos # (Auto) 0.13 (0-0.5) K/uL Baso # (Auto) 0.01 (0-0.2) K/uL PT 13.3 H (9.0-12.0) Seconds INR 1.3 H (0.9-1.1) Sodium 147 H (136-145) mmol/L Potassium 3.8 (3.5-5.1) mmol/L Chloride 116 H (98-107) mmol/L Carbon Dioxide 28 (21-32) mmol/L Anion Gap 3.0 (3-11) BUN 16 (7-18) mg/dl Creatinine 0.83 (0.6-1.2) mg/dl Est Cr Clr Drug Dosing 65.8 ml/min Est GFR ( Amer) 83.4 Est GFR (Non-Af Amer) 71.9 BUN/Creatinine Ratio 18.7 (10-20) Glucose 80 (70-99) mg/dl Calcium 8.3 L (8.5-10.1) mg/dl Total Bilirubin 1.2 H (0.2-1) mg/dl AST 71 H (15-37) U/L ALT 41 (12-78) U/L Alkaline Phosphatase 102 (45-117) U/L Ammonia (11-32) umol/L Troponin I < 0.015 (0-0.045) ng/ml Total Protein 5.5 L (6.4-8.2) gm/dl Albumin 2.0 L (3.4-5.0) gm/dl Globulin 3.5 (2.5-4.0) gm/dl Albumin/Globulin Ratio 0.6 L (0.9-2) TSH 2.990 (0.300-4.500) uIu/ml Urine Color Urine Appearance (Clear) Urine pH (4.5-7.5) Ur Specific Rudd (1.000-1.030) Urine Protein (Negative) Urine Glucose (UA) (Negative) Urine Ketones (Negative) Urine Blood (Negative) Urine Nitrite (Negative) Urine Bilirubin (Negative) Urine Urobilinogen (Negative) Ur Leukocyte Esterase (Negative) Urine WBC (Auto) (0-5) /hpf Urine RBC (Auto) (0-4) /hpf U Hyaline Cast (Auto) (0-5) /lpf U Epithel Cells (Auto) (0-5) /lpf Urine Bacteria (Auto) (Negative) 07/28/19 07/28/19 Range/Units 08:10 08:45 WBC (4.8-10.8) K/uL RBC (4.2-5.4) M/uL Hgb (12.0-16.0) g/dL Hct (37-47) % MCV (80-100) fL MCH (25-34) pg MCHC (32-36) g/dL RDW Std Deviation (36.4-46.3) fL RDW Coeff of Chloe (11.5-14.5) % Plt Count (130-400) K/uL MPV (7.4-10.4) fL Immature Gran % (Auto) % Neut % (Auto) % Lymph % (Auto) % Charles % (Auto) % Eos % (Auto) % Baso % (Auto) % Immature Gran # (Auto) (0.00-0.02) K/uL Neut # (Auto) (1.4-6.5) K/uL Lymph # (Auto) (1.2-3.4) K/uL Charles # (Auto) (0.11-0.59) K/uL Eos # (Auto) (0-0.5) K/uL Baso # (Auto) (0-0.2) K/uL PT (9.0-12.0) Seconds INR (0.9-1.1) Sodium (136-145) mmol/L Potassium (3.5-5.1) mmol/L Chloride (98-107) mmol/L Carbon Dioxide (21-32) mmol/L Anion Gap (3-11) BUN (7-18) mg/dl Creatinine (0.6-1.2) mg/dl Est Cr Clr Drug Dosing ml/min Est GFR ( Amer) Est GFR (Non-Af Amer) BUN/Creatinine Ratio (10-20) Glucose (70-99) mg/dl Calcium (8.5-10.1) mg/dl Total Bilirubin (0.2-1) mg/dl AST (15-37) U/L ALT (12-78) U/L Alkaline Phosphatase (45-117) U/L Ammonia 136.8 H (11-32) umol/L Troponin I (0-0.045) ng/ml Total Protein (6.4-8.2) gm/dl Albumin (3.4-5.0) gm/dl Globulin (2.5-4.0) gm/dl Albumin/Globulin Ratio (0.9-2) TSH (0.300-4.500) uIu/ml Urine Color Yellow Urine Appearance Cloudy A (Clear) Urine pH 7.0 (4.5-7.5) Ur Specific Rudd 1.009 (1.000-1.030) Urine Protein Negative (Negative) Urine Glucose (UA) Negative (Negative) Urine Ketones Negative (Negative) Urine Blood Negative (Negative) Urine Nitrite Positive A (Negative) Urine Bilirubin Negative (Negative) Urine Urobilinogen Negative (Negative) Ur Leukocyte Esterase Trace H (Negative) Urine WBC (Auto) 1-5 (0-5) /hpf Urine RBC (Auto) 0-4 (0-4) /hpf U Hyaline Cast (Auto) 0 (0-5) /lpf U Epithel Cells (Auto) 5-10 H (0-5) /lpf Urine Bacteria (Auto) 4+ H (Negative) Imaging Data Radiologist's Impression: Radiology results as stated below per my review and the radiologist's interpretation: XR chest 1V portable CLINICAL HISTORY: weakness COMPARISON STUDY: 07/17/2019 FINDINGS: The heart is the upper limits of normal in size. There is elevation of interstitium, finding likely secondary to mild pulmonary vascular congestion/fluid overload. There is no lobar consolidation. There are no large pleural effusions. There are presumed postsurgical changes involving the distal left clavicle. There is mild chronic tapering of the distal right clavicle.[ IMPRESSION: 1. Elevation of the interstitium, a finding likely secondary to mild pulmonary vascular congestion/fluid overload. ACT 112: Negative or not required by law. Electronically signed by: Cristhian Frost M.D. 07/28/2019 8:25 AM ECG Data Attestation: I personally reviewed and interpreted this ECG as follows: Indication: + weakness Rate (beats per minute): 60 Rhythm: + sinus bradycardia ECG Intervals/blocks: + Normal QT-c ECG ST segments: no ST elevation ECG Findings: no PACs and no PVCs Blood Pressure Blood Pressure Findings: Low blood pressure MDM Narrative This is a 68-year-old female who presents to the ED with a chief complaint of a change in mental status. The patient was discharged from the hospital 4 days ago with hepatic encephalopathy. The patient, according to the son began having some confusion last night. She was going to the bathroom but was not going. She was wiping herself despite the fact she had close on. The patient also had some confusion as to her location this morning. She was brought here by EMS. Prehospital blood sugar was 78. The patient is in no distress. She is drowsy on my exam. She does answer basic questions appropriately. The patient denies any complaint of pain at this time. She denies any recent illness or fever. The patient has had some blood in her stools a couple of days ago, according to the son. She has no focal deficits on my exam. Abdomen is soft and nontender. Her breathing appears comfortable. She is in no distress. Rectal exam reveals no stool in the vault. Minimal stool was light brown and guaiac positive. The patient falls asleep very easily during the exam but is arousable with verbal and minimal physical stimulus. The patient's EKG shows a sinus bradycardia rate of 60. Hemoglobin is 8.6. This is slightly lower than discharge hemoglobin of 9.7 but is only slightly below baseline based on other prior labs. Troponin was negative. Ammonia level is 136. It was 92 on discharge. Urine is suggestive of urinary tract infection. Chest x-ray did not show acute process. The patient was treated with IV fluids, IV Rocephin and lactulose p.o. She will be seen by the hospitalist service for inpatient evaluation Impression & Plan UTI (urinary tract infection), Hepatic encephalopathy, Anemia Discharge Plan Visit Data Chief Complaint: Illness ED Provider: Randal Alves Discharge Problem: UTI (urinary tract infection), Hepatic encephalopathy, Anemia Patient Disposition: Being Evaluated by Hospitalist Forms Stand Alone Forms: My [facility] [employer] Prescriptions Prescriptions: No Action gabapentin 300 mg capsule 300 mg PO BID Qty: 60 RF: 5 Novolog Flexpen U-100 Insulin 100 unit/mL (3 mL) insulin pen See Rx Instructions SUBCUT .COMPLEX Qty: 15 RF: 1 lactulose [Enulose] 10 gram/15 mL solution 30 ml PO DIRECTED PRN (Reason: elevated ammmonia ) Qty: 1892 RF: 5 furosemide 20 mg tablet See Rx Instructions .ROUTE .COMPLEX Qty: 60 RF: 11 (DME) lancets 30 gauge misc See Dose Instructions .ROUTE .MEDSUPPLY RF: 0 atorvastatin 20 mg tablet 20 mg PO HS Qty: 90 RF: 0 (DME) pen needle, diabetic [BD Teressa 2nd Gen Pen Needle] 32 gauge x 5/32" needle See Rx Instructions .ROUTE .MEDSUPPLY Qty: 100 RF: 0 cholecalciferol (vitamin D3) 2,000 unit Capsule 2,000 unit PO QAM RF: 0 nadolol 20 mg tablet 20 mg PO QPM RF: 0 pantoprazole 40 mg tablet,delayed release (DR/EC) 40 mg PO BIDM RF: 0 folic acid 1 mg tablet 1 mg PO DAILY RF: 0 escitalopram oxalate 10 mg tablet 10 mg PO HS RF: 0 Refresh Liquigel 1 % Drops, Liquid Gel 1 drp OPB DAILY RF: 0 magnesium oxide 400 mg (241.3 mg magnesium) tablet 400 mg PO DAILY RF: 0 ferrous sulfate 325 mg (65 mg iron) tablet 325 mg PO BIDM RF: 0 Xifaxan 550 mg tablet 550 mg PO BID RF: 0 Novolog Flexpen U-100 Insulin 100 unit/mL (3 mL) Insulin Pen 10 units subcut TIDM Qty: 15 RF: 0 Basaglar KwikPen U-100 Insulin 100 unit/mL (3 mL) insulin pen See Rx Instructions .ROUTE .COMPLEX Qty: 15 RF: 11 lactulose 20 gram/30 mL Solution 10 gm PO BID Qty: 3000 RF: 0 Referrals Referrals: Laila Thakkar MD [Primary Care Provider] - Discharge Problem: UTI (urinary tract infection) Qualifiers: Urinary tract infection type: site unspecified Hematuria presence: without hematuria Qualified Code(s): N39.0 - Urinary tract infection, site not specified Anemia Qualifiers: Anemia type: unspecified type Qualified Code(s): D64.9 - Anemia, unspecified The scribe's documentation has been prepared under my direction and personally reviewed by me in its entirety. I confirm that the note above accurately reflects all work, treatment, procedures, and medical decision making performed by me.
[2019-07-28 08:17] LABS: Hematocrit (blood only) 24.8 % (37-47); Hemoglobin 8.6 g/dL (12.0-16.0); Mean Corpuscular Hemoglobin 36.4 pg (25-34); Mean Corpuscular Hgb Conc 34.7 g/dL (32-36); Mean Corpuscular Volume 105.1 fL (80-100); RDW Coefficient of Variation 16.1 % (11.5-14.5); RDW Standard Deviation 60.9 fL (36.4-46.3); Red Blood Count 2.36 M/uL (4.2-5.4); White Blood Count 3.23 K/uL (4.8-10.8)
[2019-07-28 08:23] LABS: Mean Platelet Volume 11.2 fL (7.4-10.4); Platelet Count 64 K/uL (130-400)
--- NOTE | 2019-07-28 08:26 | XRay Report ---
XR chest 1V portable CLINICAL HISTORY: weakness COMPARISON STUDY: 07/17/2019 FINDINGS: The heart is the upper limits of normal in size. There is elevation of interstitium, findin g likely secondary to mild pulmonary vascular congestion/fluid overload. There is no lobar consolidat ion. There are no large pleural effusions. There are presumed postsurgical changes involving the dist al left clavicle. There is mild chronic tapering of the distal right clavicle.[ IMPRESSION: 1. Elevation of the interstitium, a finding likely secondary to mild pulmonary vascular congestion/fl uid overload. ACT 112: Negative or not required by law. Electronically signed by: Cristhian Frost M.D. 07/28/2019 8:25 AM
[2019-07-28 08:36] LABS: Basophils # (auto) 0.01 K/uL (0-0.2); Basophils % (auto) 0.3 %; Eosinophils # (auto) 0.13 K/uL (0-0.5); Lymphocytes # (auto) 1.04 K/uL (1.2-3.4); Lymphocytes % (auto) 32.2 %; Monocytes # (auto) 0.42 K/uL (0.11-0.59); Neutrophils # (auto) 1.63 K/uL (1.4-6.5); Neutrophils % (auto) 50.5 %
[2019-07-28 08:42] LABS: INR 1.3 (0.9-1.1); Prothrombin Time 13.3 Seconds (9.0-12.0)
[2019-07-28 08:46] LABS: Alanine Aminotransferase 41 U/L (12-78); BUN Creatinine Ratio 18.7 (10-20); Blood Urea Nitrogen 16 mg/dl (7-18); Calcium 8.3 mg/dl (8.5-10.1); Carbon Dioxide 28 mmol/L (21-32); Chloride 116 mmol/L (98-107); Creatinine Clr Calc Pharmacy 65.8 ml/min; Est GFR (African American) 83.4; Est GFR (Non-African American) 71.9; Glucose 80 mg/dl (70-99)
[2019-07-28 08:53] LABS: Albumin Globulin Ratio 0.6 (0.9-2); Alkaline Phosphatase 102 U/L (45-117); Bilirubin,Total 1.2 mg/dl (0.2-1); Globulin 3.5 gm/dl (2.5-4.0); Potassium 3.8 mmol/L (3.5-5.1); Sodium 147 mmol/L (136-145); Total Protein 5.5 gm/dl (6.4-8.2); Troponin I < 0.015 ng/ml (0-0.045)
[2019-07-28 08:55] LABS: Aspartate Aminotransferase 71 U/L (15-37)
[2019-07-28 09:07] LABS: Appearance Urine Cloudy (Clear); Bacteria Urine Automated 4+ (Negative); Bilirubin Urine Negative (Negative); Blood Urine Negative (Negative); Cast Urine Automated 0 /lpf (0-5); Color Urine Yellow; Glucose Urine UA Negative (Negative); Ketones Urine Negative (Negative); Leukocyte Esterase Urine Trace (Negative); Nitrite Urine Positive (Negative); Protein Urine Negative (Negative); RBC Urine Automated 0-4 /hpf (0-4); Specific Gravity Urine 1.009 (1.000-1.030); Urobilinogen Urine Negative (Negative)
[2019-07-28] MEDS ORDERED: LACTULOSE SYRUP 20 GM/30 ML UDC PO ONE (09:34)
[2019-07-28] MEDS ORDERED: cefTRIAXone SODIUM 1,000 MG/50 ML BAG IV STA (09:35)
[2019-07-28] MEDS ORDERED: LACTULOSE PO PRN (13:25)
[2019-07-28] MEDS ORDERED: ALUMINUM/MAGNESIUM SUSP 30 ML UDC PO PRN (13:25)
[2019-07-28] MEDS ORDERED: ONDANSETRON INJ 2 MG/ML 2 ML VIAL IV PRN (13:25)
[2019-07-28] MEDS: LACTATED RINGER'S 1,000 ML IV SCH (13:30)
[2019-07-28] MEDS: FERROUS SULFATE 325 MG TAB PO SCH (17:37)
[2019-07-28] MEDS: PANTOprazole 40 MG TAB PO SCH (17:37)
[2019-07-28] MEDS: INSULIN ASPART 100 UNITS/ML 3 ML PEN SC SCH ×2 (17:38→21:26)
--- NOTE | 2019-07-28 18:17 | History & Physical Report ---
Date of Service July 28, 2019 Assessment & Plan (1) Altered mental status: Appears to be on the basis of her elevated ammonia (hepatic encephalopathy), as well as a degree of a metabolic encephalopathy mostly from dehydration/hypernatremia. While she appears to have a urinary tract infection, this appears to be mild cystitis at worst and does not appear likely to be at play in her mental status (2) Hepatic encephalopathy: Does not appear to have any significant findings concerning for SBP or other ominous causes of decompensation, and more than likely dehydration and constipation/a lowered dose of lactulose are the culprits here. Her lower abdominal tenderness is more than likely related to constipation, and of note CT scan from about 10 days ago did show a reasonable amount of formed stool and a mildly distended rectum. Increase lactulose IV fluids Supportive care Time (3) Dehydration: Mildly hypernatremic IV fluids, follow (4) Hematochezia: Colonoscopy from November 26, 2017 showed internal hemorrhoids and diverticulosis without any other worrisome findings. Given her HPI as far as the bleeding goes and this as far as her colonoscopy, more than likely this was a hemorrhoidal bleed versus diverticular bleed. Either way following her symptoms, and following her hemoglobin be the appropriate course of treatment at this time. (5) Anemia: Mildly worse than at discharge, uncertain if it is due to blood loss from above versus simply lab abnormality. Follow (6) UTI (urinary tract infection): Mild symptoms, but given that she does have a stone definitely need to treatceftriaxone for now pending culture. (7) Ureterolithiasis: Treat UTI as above, outpatient urology follow-up unless the stone becomes symptomatic (8) Thrombocytopenia: Chronic and related to cirrhosis, follow (9) Cirrhosis of liver: Chronic, with also concern of possibly liver cancer that is being worked up. Supportive care (10) DVT prophylaxis: While she does have a degree of coagulopathy related to her cirrhosis combined with thrombocytopenia, she also has rather significant venous stasis edema raising her risk of DVT. Given that the GI bleed seems to been mild and resolved (and was also most likely hemorrhoidal) risk/benefit favors prophylaxis given her immobility and venous stasiswe will cautiously utilize low-dose of heparin subcu. (11) COPD (chronic obstructive pulmonary disease): No noted breathing issues. Follow (12) HTN (hypertension): Uncertain if this is still an active diagnosis, her home meds that would also be for blood pressure are likely for her liver disease. Follow blood pressure and continue these meds. 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 (14) Discharge planning issues: Observation on medical for now, work on the above-noted issues, as she improves medically then need to revisit if she will be able to go home (i.e. clinical assessment versus PT/OT and case management involvement) History of Present Illness Primary Care Provider: Laila Thakkar MD Altered mental status patient was just discharged on the , she is a little bit confused, so while she does seem to answer proximal questions reasonably well, her son provides most of the HPI. Apparently 2 days ago she had a bowel movement that was both bright and dark red bloody. Nothing since. She then yesterday started acting funny and talking in ways that were not making sense, and then when it persisted the son brought her to the ER for further evaluation. She herself notes some lower abdominal discomfort (the son believes that she has not had a bowel movement since the bloody one a few days ago), some urinary frequency but no dysuria, and no other pain or no other symptoms whatsoever. Again history is extremely limited because of the patient's mentation and the son obviously only being able to provide secondhand details in a limited way. She does not seem to have any significant pain from the kidney stone. No upper GI symptoms or vomiting, no hematemesis. Allergies Allergy/AdvReac Type Severity Reaction Status Date / Time methyl salicylate Allergy Mild RASH Verified 07/28/19 08:07 nickel Allergy Mild RASH Verified 07/28/19 08:07 zinc Allergy Mild RASH Verified 07/28/19 08:07 diphenhydramine AdvReac Intermediate BURNING Verified 07/28/19 08:07 EYES,DIZZY,BLISTERS Home Medications Home Medications Medication Instructions Recorded Confirmed Type cholecalciferol (vitamin D3) 2,000 unit PO QAM 04/13/18 07/28/19 History gabapentin 300 mg capsule 300 mg PO BID #60 cap 03/01/19 07/28/19 Rx Refresh Liquigel 1 drp OPB DAILY 04/14/19 07/28/19 History ferrous sulfate 325 mg PO BIDM 04/14/19 07/28/19 History magnesium oxide 400 mg PO DAILY 04/14/19 07/28/19 History lancets 30 gauge ea 04/19/19 07/05/19 History insulin aspart U-100 100 unit/mL See Rx Instructions SUBCUT 04/21/19 07/28/19 Rx (3 mL) subcutaneous pen .COMPLEX #15 ml lactulose 10 gram/15 mL oral 30 ml PO DIRECTED PRN #[id number] ml 05/17/19 07/28/19 Rx solution escitalopram oxalate 10 mg PO HS 06/15/19 07/28/19 History folic acid 1 mg PO DAILY 06/15/19 07/28/19 History nadolol 20 mg PO QPM 06/15/19 07/28/19 History pantoprazole 40 mg PO BIDM 06/15/19 07/28/19 History atorvastatin 20 mg tablet 20 mg PO HS #90 tab 06/26/19 07/28/19 Rx pen needle, diabetic 32 gauge x #100 ea 06/26/19 07/05/19 Rx " furosemide 20 mg tablet See Rx Instructions .ROUTE 07/11/19 07/28/19 Rx .COMPLEX #60 tablet Xifaxan 550 mg PO BID 07/12/19 07/28/19 History Basaglar KwikPen U-100 Insulin See Rx Instructions .ROUTE 07/24/19 07/28/19 Rx .COMPLEX #15 milliliter insulin aspart U-100 [Novolog 10 units SUBCUT TIDM #15 ml 07/24/19 07/28/19 Rx Flexpen U-100 Insulin] lactulose 10 gm PO BID #3000 ml 07/24/19 07/28/19 Rx Past Med/Surg History Medical History Anxiety Chronic back pain Cirrhosis FOLLOWS W/ [facility], MELD score 10. COPD (chronic obstructive pulmonary disease) (Chronic) Uses recuse inhaler ~ once/month Depression Diabetes mellitus, type 2 IDDM Esophageal varices Per EGD 11/30/2018: Nonbleeding grade 1 and small (<5 mm) esophageal varices. Hyperlipidemia Kidney stones Liver cancer DX 1-2 MONTHS AGO Migraine Neuropathy Osteoarthritis Pancytopenia (Acute) Poor historian Shortness of breath on exertion Skin cancer of face Sleep apnea PT UNABLE TO CONFIRM, DOES NOT USE ASSISTIVE DEVICE HS Surgical History History of arthroscopy of left shoulder History of arthroscopy of right knee History of bilateral cataract extraction History of carpal tunnel surgery of left wrist History of lithotripsy History of Mohs micrographic surgery for skin cancer History of tonsillectomy and adenoidectomy History of tooth extraction all teeth removed History of total abdominal hysterectomy and bilateral salpingo-oophorectomy Family History Brother Family history of diabetes mellitus Sister Family history of diabetes mellitus Other Family history non-contributory No family history of adverse response to anesthesia Social History Preferred Language: [place] Communication Ability: Impaired Visual Impairment: No Limitations [employer] Required: No Beliefs That Will Affect Care: None Current Living Situation: Family Current Living Situation Comment: With son. Other Information That Helps Us Care for You: No Feels Safe at Home: Yes Smoking Status: Former smoker Tobacco Type: cigarettes ; Cigarettes Per Day: 4 PPD ; Do You Dip or Chew Tobacco: No ; Smoking End Date: 17 years ago. ; Second Hand Exposure: No ; Tobacco Cessation Education Requested by Patient: No Hx Alcohol Use: Yes (when patient was young) Hx Substance Use: No Review of Systems Review of Systems: All systems reviewed & are unremarkable except as noted in HPI & below Physical Exam Physical Exam: General she is awake and alert, but mildly disorientedshe is unable to answer the year and relates we are at [facility]. Fatigued but no distress HEENT normocephalic atraumatic mucous membranes slightly dry. Neck with full range of motion. Cardio is regular without any rubs murmurs or gallops Lungs clear to auscultation bilaterally no rales rhonchi or wheezes with good effort no accessory muscle use. Diminished air entry globally Abdomen soft mildly distended some lower abdominal/suprapubic tenderness without guarding, rebound, or rigidity, as well as some epigastric discomfort with no guarding/rebound/rigidity as well. Extremities show no cyanosis or clubbing, she has about 1-2+ bilateral lower extremity chronic appearing pitting edema with venous stasis type changesthe son notes in the spectrum of her leg swelling this is moderate compared to what she can have happen sometimes. Skin shows no rashes, no pallor, no icterusshe does have the venous stasis changes of her shins, and the rest of her skin does appear visibly quite dry Neurocranial nerves II through XII are grossly intact, as best can be ascertained there are no focal motor or sensory deficits as well. Mental status is somewhat easily confused, poor recent and remote recall, pleasant conversationally. Musculoskeletal exam yields no gross abnormalities. Results & Data Vital Signs (Past 12 Hours) Vital Signs Temp Pulse Pulse Pulse Resp BP BP 07/28/19 16:17 98.4 F 58 L 18 151/62 H 07/28/19 12:17 98.1 F 56 L 16 07/28/19 11:30 58 L 10 L 120/51 L 07/28/19 11:00 58 L 9 L 122/57 L 07/28/19 10:30 59 L 16 123/52 L 07/28/19 10:00 60 14 137/56 L 07/28/19 09:30 59 L 13 113/49 L 07/28/19 09:01 58 L 13 07/28/19 09:00 58 L 13 122/51 L 07/28/19 08:30 58 L 12 125/53 L 07/28/19 08:21 58 L 14 07/28/19 07:52 98.2 F 62 18 126/53 L BP Pulse Ox 07/28/19 16:17 98 07/28/19 12:17 126/63 99 07/28/19 11:30 07/28/19 11:00 07/28/19 10:30 97 07/28/19 10:00 97 07/28/19 09:30 96 07/28/19 09:01 95 07/28/19 09:00 96 07/28/19 08:30 98 07/28/19 08:21 136/57 L 97 07/28/19 07:52 97 Code Status & VTE Plan VTE Prophylaxis Plan VTE Prophylaxis will be ordered: Yes PG Care Time/CCT Total # of Minutes Spent Total Time Spent with Patient: Total time spent is greater than 50% in coordination of care (as documented) at patient's floor/unit and/or counseling patient: (1) Anemia Anemia type: unspecified type Qualified Code(s): D64.9 - Anemia, unspecified (2) UTI (urinary tract infection) Hematuria presence: without hematuria Urinary tract infection type: site unspecified Qualified Code(s): N39.0 - Urinary tract infection, site not specified (3) Cirrhosis of liver Hepatic cirrhosis type: other cirrhosis Qualified Code(s): K74.69 - Other cirrhosis of liver
[2019-07-28] MEDS ORDERED: LACTULOSE SYRUP 20 GM/30 ML UDC PO SCH (21:00)
[2019-07-28] MEDS ORDERED: INSULIN GLARGINE SOLOSTAR 100 UNITS/ML 3 ML PEN SQ SCH (21:00)
[2019-07-28] MEDS: ESCITALOPRAM OXALATE 10 MG TAB PO SCH (21:24)
[2019-07-28] MEDS: NADOLOL 40 MG TAB PO SCH (21:25)
[2019-07-28] MEDS: GABAPENTIN 300 MG CAP PO SCH (21:25)
[2019-07-28] MEDS: HEPARIN SOD 5,000 UNIT/0.5 ML VIAL SQ SCH (21:26)
[2019-07-28] MEDS: ATORVASTATIN 20 MG TAB PO SCH (21:27)
[2019-07-28] MEDS: RIFAXIMIN 550 MG TABLET PO SCH (21:27)
[2019-07-28] MEDS: LACTULOSE SYRUP 20 GM/30 ML UDC PO SCH (21:27)
[2019-07-29] MEDS: LACTATED RINGER'S 1,000 ML IV SCH (02:05)
[2019-07-29 06:23] LABS: Hematocrit (blood only) 25.5 % (37-47); Hemoglobin 8.7 g/dL (12.0-16.0); Mean Corpuscular Hemoglobin 36.3 pg (25-34); Mean Corpuscular Hgb Conc 34.1 g/dL (32-36); Mean Corpuscular Volume 106.3 fL (80-100); RDW Coefficient of Variation 16.4 % (11.5-14.5); White Blood Count 2.97 K/uL (4.8-10.8)
[2019-07-29 06:49] LABS: Mean Platelet Volume 10.6 fL (7.4-10.4); Platelet Count 50 K/uL (130-400)
[2019-07-29 06:56] LABS: Basophils # (auto) 0.01 K/uL (0-0.2); Basophils % (auto) 0.3 %; Eosinophils # (auto) 0.14 K/uL (0-0.5); Eosinophils % (auto) 4.7 %; Lymphocytes # (auto) 0.82 K/uL (1.2-3.4); Lymphocytes % (auto) 27.6 %; Monocytes # (auto) 0.39 K/uL (0.11-0.59); Monocytes % (auto) 13.1 %; Neutrophils # (auto) 1.61 K/uL (1.4-6.5); Neutrophils % (auto) 54.3 %
[2019-07-29 07:07] LABS: BUN Creatinine Ratio 22.5 (10-20); Creatinine Clr Calc Pharmacy 78.8 ml/min; Est GFR (African American) 102.5; Est GFR (Non-African American) 88.4; Potassium 3.9 mmol/L (3.5-5.1)
[2019-07-29] MEDS: FERROUS SULFATE 325 MG TAB PO SCH ×2 (08:14→17:56)
[2019-07-29] MEDS: PANTOprazole 40 MG TAB PO SCH ×2 (08:14→17:57)
[2019-07-29] MEDS: LACTULOSE SYRUP 20 GM/30 ML UDC PO SCH ×2 (08:15→21:32)
[2019-07-29] MEDS: FOLIC ACID 1 MG TAB PO SCH (08:16)
[2019-07-29] MEDS: MAGNESIUM OXIDE 400 MG TAB PO SCH (08:16)
[2019-07-29] MEDS: GABAPENTIN 300 MG CAP PO SCH ×2 (08:16→21:33)
[2019-07-29] MEDS: CARBOXYMETHYLCELLULOSE SODIUM 15 ML OPB SCH (08:17)
[2019-07-29] MEDS: CHOLECALCIFEROL 1,000 UNITS TAB PO SCH (08:18)
[2019-07-29] MEDS: RIFAXIMIN 550 MG TABLET PO SCH ×2 (08:18→21:32)
[2019-07-29] MEDS: SODIUM CHLOR 0.45% + 20MEQ KCL 20 MEQ/1,000 ML BAG IV SCH ×2 (09:33→22:03)
[2019-07-29] MEDS: cefTRIAXone SODIUM 2,000 MG in DEXTROSE 5% 50 ML IV SCH (09:37)
[2019-07-29] MEDS: INSULIN GLARGINE SOLOSTAR 100 UNITS/ML 3 ML PEN SQ SCH ×2 (09:54→21:33)
[2019-07-29] MEDS: INSULIN ASPART 100 UNITS/ML 3 ML PEN SC SCH ×4 (09:54→21:34)
[2019-07-29] MEDS: HEPARIN SOD 5,000 UNIT/0.5 ML VIAL SQ SCH ×2 (09:56→21:33)
--- NOTE | 2019-07-29 16:15 | Hospitalist Progress Note ---
Date of Service July 29, 2019 Assessment & Plan (1) Altered mental status: Appears to be on the basis of her elevated ammonia (hepatic encephalopathy), as well as a degree of a metabolic encephalopathy mostly from dehydration/hypernatremia. While she appears to have a urinary tract infection, this appears to be mild cystitis at worst and does not appear likely to be at play in her mental status. overall improving. (2) Hepatic encephalopathy: Does not appear to have any significant findings concerning for SBP or other ominous causes of decompensation, and more than likely dehydration and constipation/a lowered dose of lactulose are the culprits here. continue lactulose IV fluids Supportive care Time; is improving. (3) Dehydration: Mildly hypernatremic looks better hydrated, sodium hasn't changed - change fluids to 1/2NSS w 20meq K/L (4) Hematochezia: Colonoscopy from November 26, 2017 showed internal hemorrhoids and diverticulosis without any other worrisome findings. no further bleeding, Hgb now stable - almost certainly hemorrhoidal or diverticular and has stopped. follow periodically. (despite portal HTN - her stability, lack of hematemesis, etc makes UGI source highly unlikely) (5) Anemia: consistently worse than prior dc - probably did have small amount of acute blood loss from bleed but now has stabilized. (6) UTI (urinary tract infection): Mild symptoms, but given that she does have a stone definitely need to treatcontinue ceftriaxone for now pending culture. (7) Ureterolithiasis: Treat UTI as above, outpatient urology follow-up unless the stone becomes symptomatic (8) Thrombocytopenia: Chronic and related to cirrhosis, follow (9) Cirrhosis of liver: Chronic, with also concern of possibly liver cancer that is being worked up. Supportive care (10) DVT prophylaxis: tolerating SQ heparin well - see yesterday's discussion (11) COPD (chronic obstructive pulmonary disease): No noted breathing issues. Follow (12) HTN (hypertension): Uncertain if this is still an active diagnosis, her home meds that would also be for blood pressure are likely for her liver disease. Follow blood pressure and continue these meds. 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 (lower basal today since has had nearly zero bolus) (14) Discharge planning issues: improving. PT/OT eval and treat - medically might be stable for discharge by tomorrow but definitely need input from therapy that she'll be safe. Subjective feeling better mentally more clear. abdominal pain has faded to more of a "tingling" and is improved. eating well no problems. BM no blood. breathing well. Review of Systems Review of Systems: All systems reviewed & are unremarkable except as noted in HPI & below Physical Exam Physical Exam: gen - pleasant and oriented nad heent - nc at mmm cardio - reg no r/m/g lungs cta b/l no r/r/w good effort abd soft nd less tender than yesterday still suprapubic no guarding/rebound/rigidity ext - no c/c, ongoing edema about the same as yesterday ~1-2+ equal mildly tender neuro - no focal deficits. cn 2-12 grossly intact. Results & Data Vital Signs (Past 12 Hours) Vital Signs Temp Pulse Resp BP BP Pulse Ox 07/29/19 15:17 98.4 F 59 L 17 116/64 96 07/29/19 11:41 98.1 F 56 L 20 125/69 96 07/29/19 08:22 98.1 F 64 18 144/64 H 94 07/29/19 05:12 98.8 F 60 18 123/54 L 95 PG Care Time/CCT Total # of Minutes Spent Total Time Spent with Patient: Total time spent is greater than 50% in coordination of care (as documented) at patient's floor/unit and/or counseling patient: (1) Anemia Anemia type: unspecified type Qualified Code(s): D64.9 - Anemia, unspecified (2) UTI (urinary tract infection) Hematuria presence: without hematuria Urinary tract infection type: site unspecified Qualified Code(s): N39.0 - Urinary tract infection, site not specified (3) Cirrhosis of liver Hepatic cirrhosis type: other cirrhosis Qualified Code(s): K74.69 - Other cirrhosis of liver
[2019-07-29] MEDS: ATORVASTATIN 20 MG TAB PO SCH (21:32)
[2019-07-29] MEDS: ESCITALOPRAM OXALATE 10 MG TAB PO SCH (21:32)
[2019-07-29] MEDS: NADOLOL 40 MG TAB PO SCH (21:32)
[2019-07-30 07:33] LABS: BUN Creatinine Ratio 25.2 (10-20); Calcium 7.6 mg/dl (8.5-10.1); Creatinine Clr Calc Pharmacy 82.3 ml/min; Est GFR (African American) 103.9; Est GFR (Non-African American) 89.7; Potassium 4.1 mmol/L (3.5-5.1)
[2019-07-30] MEDS: LACTULOSE SYRUP 20 GM/30 ML UDC PO SCH ×2 (07:36→21:21)
[2019-07-30] MEDS: CHOLECALCIFEROL 1,000 UNITS TAB PO SCH (07:36)
[2019-07-30] MEDS: FERROUS SULFATE 325 MG TAB PO SCH ×2 (07:36→17:13)
[2019-07-30] MEDS: FOLIC ACID 1 MG TAB PO SCH (07:37)
[2019-07-30] MEDS: PANTOprazole 40 MG TAB PO SCH ×2 (07:37→17:13)
[2019-07-30] MEDS: HEPARIN SOD 5,000 UNIT/0.5 ML VIAL SQ SCH (07:37)
[2019-07-30] MEDS: GABAPENTIN 300 MG CAP PO SCH ×2 (07:37→21:20)
[2019-07-30] MEDS: RIFAXIMIN 550 MG TABLET PO SCH ×2 (07:37→21:20)
[2019-07-30] MEDS: MAGNESIUM OXIDE 400 MG TAB PO SCH (07:37)
[2019-07-30] MEDS: CARBOXYMETHYLCELLULOSE SODIUM 15 ML OPB SCH (07:38)
[2019-07-30] MEDS: cefTRIAXone SODIUM 2,000 MG in DEXTROSE 5% 50 ML IV SCH (07:55)
[2019-07-30] MEDS: INSULIN ASPART 100 UNITS/ML 3 ML PEN SC SCH ×4 (08:50→21:22)
[2019-07-30] MEDS ORDERED: PHARMACY GLYCEMIC MGMT CONSULT PRN (08:57)
[2019-07-30] MEDS ORDERED: INSULIN GLARGINE SOLOSTAR 100 UNITS/ML 3 ML PEN SQ ONE (09:00)
--- NOTE | 2019-07-30 09:54 | Pharmacy Report ---
Pharmacy Glycemic Short Note 2 - Date of Service July 30, 2019 - Glycemic Short BSG Results (Last 24 hours): 07/29/19 07/29/19 07/29/19 11:29 16:17 20:14 Glucose POC Glucose 251 H 181 H 118 H 07/30/19 07/30/19 07/30/19 06:31 07:29 07:52 Glucose 55 L POC Glucose 60 L* 70 OUTPATIENT ANTIDIABETIC REGIMEN: * A1c = 8.8% (06/17/19) * Basaglar 30 units SQ BID * Novolog 10 units TIDM + sliding scale for correction ASSESSMENT: * Telma is a 68 yr old T2DM admitted with altered mental status. She is known to the glycemic service from a previous admission 07/18-07/24. She required an av erage of 87 units of insulin per day during that admission. On discharge her basal insulin was decreased from 40 units BID to 30 units BID and scheduled mealtime insulin was added. * Fasting BSG of 55 mg/dL this morning, despite 17% decrease in Lantus on 07/29. I will further decrease dose today. Provider ordered a partial dose of 10 units for this Am x1. Suspect patient will end up needing about 20 units BID. * Post prandial BSGs improved over the past 12 hours after addition of correction factor. No changes to Novolog at this time. PLAN FOR INPATIENT GLYCEMIC CONTROL: * Basal insulin * Lantus 10 units SQ this morning, then per scale BID: - 15 units for BSG < 140 mg/dL - 20 units for BSG 140 mg/dL or more * Bolus insulin * NovoLog per scale ACHS or Q6hrs while NPO * Goal Range: Low 120 mg/dL - High 160 mg/dL * Correction Factor: 25 mg/dL/unit * Nutritional / Prandial insulin per carb ratio of 1 unit per 3 grams CHO consumed PLAN FOR DISCHARGE: * A1c = 8.8% * Please refer to discharge recommendations from 07/24/19 * If home fasting BSG is consistently below goal, consider additional reduction in Basaglar (22 units SQ BID)
[2019-07-30] MEDS ORDERED: AMOXICILLIN 500 MG CAP PO STA (14:41)
--- NOTE | 2019-07-30 18:31 | Hospitalist Progress Note ---
Date of Service July 30, 2019 Assessment & Plan (1) Altered mental status: Appears to be on the basis of her elevated ammonia (hepatic encephalopathy), as well as a degree of a metabolic encephalopathy mostly from dehydration/hypernatremia. UTI as possibly contributing event. Hypoglycemia possibly also contributing this morning. (2) Hepatic encephalopathy: Does not appear to have any significant findings concerning for SBP or other ominous causes of decompensation, and more than likely dehydration and constipation/a lowered dose of lactulose are the culprits here. (3) Dehydration: Mildly hypernatremic. Initially given NSS bolus likely made it acutely worse, then switched to 1/2NSS w 20meq K/L. Now eating and drinking will d/c fluids and monitor. (4) Hematochezia: Colonoscopy from November 26, 2017 showed internal hemorrhoids and diverticulosis without any other worrisome findings. no further bleeding, Hgb now stable - almost certainly hemorrhoidal or diverticular and has stopped. follow periodically. (despite portal HTN - her stability, lack of hematemesis, etc makes UGI source highly unlikely) (5) Anemia: consistently worse than prior dc - probably did have small amount of acute blood loss from bleed but now has stabilized. (6) UTI (urinary tract infection): Mild symptoms, but given that she does have a stone definitely need to treat continue ceftriaxone for now pending culture. Likely need for prolonged antibiotic course in setting of recent 7mm obstructing stone (previously planned urology outpatient workup). If Cr increasing will get US to assess for hydronephrosis (not previously present). Currently Cr stable and patient not septic therefore no need for urology consult at present. (7) Ureterolithiasis: Treat UTI as above, outpatient urology follow-up unless the stone becomes symptomatic or septic. (8) Thrombocytopenia: Chronic and related to cirrhosis, follow (9) Cirrhosis of liver: Chronic, with also concern of possibly liver cancer that is being worked up. Supportive care (10) COPD (chronic obstructive pulmonary disease): No noted breathing issues. Follow (11) HTN (hypertension): Uncertain if this is still an active diagnosis, her home meds that would also be for blood pressure are likely for her liver disease. Follow blood pressure and continue these meds. 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 (13) DVT prophylaxis: Heparin stopped due to Plt 50. (14) Discharge planning issues: Not back to baseline mental state from knowing her on last admission. Speech appears slow and feels like she has been run over by a truck. Continue PT/OT as able. Results & Data Vital Signs (Past 12 Hours) Vital Signs Temp Pulse Resp BP Pulse Ox 07/30/19 15:00 36.6 C 51 L 16 154/63 H 98 07/30/19 11:39 36.4 C L 56 L 18 109/58 L 90 07/30/19 07:35 36.8 C 58 L 18 125/58 L 96 PG Care Time/CCT Total # of Minutes Spent Total Time Spent with Patient: Total time spent is greater than 50% in coordination of care (as documented) at patient's floor/unit and/or counseling patient: (1) Altered mental status Altered mental status type: disorientation Qualified Code(s): R41.0 - Disorientation, unspecified (2) Anemia Anemia type: unspecified type Qualified Code(s): D64.9 - Anemia, unspecified (3) UTI (urinary tract infection) Hematuria presence: without hematuria Urinary tract infection type: site unspecified Qualified Code(s): N39.0 - Urinary tract infection, site not specified (4) Cirrhosis of liver Hepatic cirrhosis type: other cirrhosis Qualified Code(s): K74.69 - Other cirrhosis of liver (5) COPD (chronic obstructive pulmonary disease) COPD type: unspecified COPD Qualified Code(s): J44.9 - Chronic obstructive pulmonary disease, unspecified (6) HTN (hypertension) Hypertension type: essential hypertension Qualified Code(s): I10 - Essential (primary) hypertension
[2019-07-30] MEDS ORDERED: INSULIN GLARGINE SOLOSTAR 100 UNITS/ML 3 ML PEN SQ SCH (21:00)
[2019-07-30] MEDS: AMOXICILLIN 500 MG CAP PO SCH (21:20)
[2019-07-30] MEDS: ESCITALOPRAM OXALATE 10 MG TAB PO SCH (21:20)
[2019-07-30] MEDS: NADOLOL 40 MG TAB PO SCH (21:20)
[2019-07-30] MEDS: ATORVASTATIN 20 MG TAB PO SCH (21:20)
[2019-07-30] MEDS: INSULIN GLARGINE SOLOSTAR 100 UNITS/ML 3 ML PEN SQ SCH (21:21)
[2019-07-31 06:19] LABS: Hematocrit (blood only) 29.2 % (37-47); Hemoglobin 9.7 g/dL (12.0-16.0); Mean Corpuscular Hemoglobin 35.8 pg (25-34); Mean Corpuscular Hgb Conc 33.2 g/dL (32-36); Mean Corpuscular Volume 107.7 fL (80-100); RDW Coefficient of Variation 16.5 % (11.5-14.5); RDW Standard Deviation 64.6 fL (36.4-46.3); Red Blood Count 2.71 M/uL (4.2-5.4); White Blood Count 3.48 K/uL (4.8-10.8)
[2019-07-31 06:27] LABS: Mean Platelet Volume 10.7 fL (7.4-10.4); Platelet Count 64 K/uL (130-400)
[2019-07-31 06:54] LABS: BUN Creatinine Ratio 18.8 (10-20); Calcium 8.1 mg/dl (8.5-10.1); Creatinine Clr Calc Pharmacy 66.5 ml/min; Est GFR (African American) 83.4; Est GFR (Non-African American) 71.9
[2019-07-31 06:58] LABS: Albumin Globulin Ratio 0.5 (0.9-2); Globulin 3.9 gm/dl (2.5-4.0); Total Protein 5.9 gm/dl (6.4-8.2)
[2019-07-31] MEDS: GABAPENTIN 300 MG CAP PO SCH (07:57)
[2019-07-31] MEDS: AMOXICILLIN 500 MG CAP PO SCH ×2 (07:57→13:48)
[2019-07-31] MEDS: RIFAXIMIN 550 MG TABLET PO SCH (07:57)
[2019-07-31] MEDS: PANTOprazole 40 MG TAB PO SCH ×2 (07:57→17:41)
[2019-07-31] MEDS: FOLIC ACID 1 MG TAB PO SCH (07:57)
[2019-07-31] MEDS: FERROUS SULFATE 325 MG TAB PO SCH ×2 (07:57→17:41)
[2019-07-31] MEDS: CHOLECALCIFEROL 1,000 UNITS TAB PO SCH (07:58)
[2019-07-31] MEDS: LACTULOSE SYRUP 20 GM/30 ML UDC PO SCH (07:58)
[2019-07-31] MEDS: MAGNESIUM OXIDE 400 MG TAB PO SCH (07:58)
[2019-07-31] MEDS: INSULIN GLARGINE SOLOSTAR 100 UNITS/ML 3 ML PEN SQ SCH (07:59)
[2019-07-31] MEDS: CARBOXYMETHYLCELLULOSE SODIUM 15 ML OPB SCH (08:00)
[2019-07-31] MEDS: INSULIN ASPART 100 UNITS/ML 3 ML PEN SC SCH ×3 (08:01→17:40)
--- NOTE | 2019-07-31 09:41 | Pharmacy Report ---
Pharmacy Glycemic Short Note 2 - Date of Service July 31, 2019 - Glycemic Short BSG Results (Last 24 hours): 07/30/19 07/30/19 07/30/19 11:33 16:08 20:13 Glucose POC Glucose 109 H 141 H 144 H 07/31/19 05:59 Glucose 97 POC Glucose OUTPATIENT ANTIDIABETIC REGIMEN: * A1c = 8.8% (06/17/19) * Basaglar 30 units SQ BID * Novolog 10 units TIDM + sliding scale for correction ASSESSMENT: * BSGs adequately controlled over the previous 24hrs. Lows have ceased. Diet continues. Rocephin deescalated to amox. PLAN FOR INPATIENT GLYCEMIC CONTROL: * Basal insulin - continue reduced doses: pt takes 30u BID as outpt - 15 units for BSG < 140 mg/dL - 20 units for BSG 140 mg/dL or more * Bolus insulin * NovoLog per scale ACHS or Q6hrs while NPO * Goal Range: Low 120 mg/dL - High 160 mg/dL * Correction Factor: 25 mg/dL/unit * Nutritional / Prandial insulin per carb ratio of 1 unit per 3 grams CHO consumed PLAN FOR DISCHARGE: * A1c = 8.8% * Please refer to discharge recommendations from 07/24/19 * If home fasting BSG is consistently below goal, consider additional reduction in Basaglar (22 units SQ BID)
--- NOTE | 2019-07-31 15:15 | Discharge Summary ---
Date of Service July 31, 2019 Admission HPI Per Admitting Provider Altered mental status patient was just discharged on the , she is a little bit confused, so while she does seem to answer proximal questions reasonably well, her son provides most of the HPI. Apparently 2 days ago she had a bowel movement that was both bright and dark red bloody. Nothing since. She then yesterday started acting funny and talking in ways that were not making sense, and then when it persisted the son brought her to the ER for further evaluation. She herself notes some lower abdominal discomfort (the son believes that she has not had a bowel movement since the bloody one a few days ago), some urinary frequency but no dysuria, and no other pain or no other symptoms whatsoever. Again history is extremely limited because of the patient's mentation and the son obviously only being able to provide secondhand details in a limited way. She does not seem to have any significant pain from the kidney stone. No upper GI symptoms or vomiting, no hematemesis. Principal Diagnosis Hepatic encephalopathy Discharge Exam Constitutional WD/WN, vitals as above Eyes PERRL, conjunctivae normal, anicteric sclerae ENMT external ear and nose normal, oropharynx normal Neck trachea midline, no thyromegaly Respiratory normal respiratory effort, lungs clear to auscultation Cardiovascular RRR, no murmur, no edema Chest (Breasts) Chest: normal inspection of chest Gastrointestinal (Abdomen) normal bowel sounds, soft, nontender, no hepatosplenomegaly Musculoskeletal Extremities: extremities normal to inspection; no cyanosis and no clubbing Skin no rashes, warm and dry Neurologic moves all extremities and awake; no focal motor deficits Psychiatric A+Ox3, euthymic affect Lymphatic no lymphedema Discharge Data Allergies Allergy/AdvReac Type Severity Reaction Status Date / Time methyl salicylate Allergy Mild RASH Verified 07/28/19 08:07 nickel Allergy Mild RASH Verified 07/28/19 08:07 zinc Allergy Mild RASH Verified 07/28/19 08:07 diphenhydramine AdvReac Intermediate BURNING Verified 07/28/19 08:07 EYES,DIZZY,BLISTERS Consultations 07/28/19 09:39 ED Decision to Admit Stat Ordered Studies CXR Hospital Course (1) Altered mental status: Appears to be on the basis of her elevated ammonia (hepatic encephalopathy), as well as a degree of a metabolic encephalopathy mostly from dehydration/hypernatremia. UTI as possibly contributing event. Hypoglycemia was also contributing -all of which are now resolved Is AOx3 on day of discharge, doing well (2) Hepatic encephalopathy: Does not appear to have any significant findings concerning for SBP or other ominous causes of decompensation, and more than likely dehydration and constipation/a lowered dose of lactulose are the culprits here. Resolved, having numerous BMs daily at time of discharge -continue lactulose at increased dose of 20 gm bid -continue Rifaximin (3) Dehydration: Mildly hypernatremic. Initially given NSS bolus likely made it acutely worse, then switched to 1/2NSS w 20meq K/L. Now eating and drinking will d/c fluids and monitor. Resolved (4) Hematochezia: Colonoscopy from November 26, 2017 showed internal hemorrhoids and diverticul osis without any other worrisome findings. no further bleeding, Hgb now stable - almost certainly hemorrhoidal or diverticular and has stopped. follow periodically. (despite portal HTN - her stability, lack of hematemesis, etc makes UGI source highly unlikely) -hgb up to 9.7 on day of discharge (5) Anemia: consistently worse than prior dc - probably did have small amount of acute blood loss from bleed but now has stabilized to improved at time of dc -follow as outpt -chronic disease contributing as well as hematochezia prior to this admission (6) UTI (urinary tract infection): Mild symptoms, but given that she does have a stone definitely need to treat received ceftriaxone in hospital. Likely need for prolonged antibiotic course in setting of recent 7mm obstructing stone (previously planned urology outpatient workup). Play Back Operator remained normal so did not need to repeat renal US to assess for hydro nephrosis (not previously present). Currently Cr stable and patient not septic therefore no need for urology consult at present. -finish out 7 more days of amoxicillin for Ur cx with Enterococcus faecium, pansensitive -f/u with Urology as outpt (7) Ureterolithiasis: Treat UTI as above, outpatient urology follow-up unless the stone becomes symptomatic or septic. (8) Thrombocytopenia: Chronic and related to cirrhosis, follow, improved on day of dc up to 64 (9) Cirrhosis of liver: Secondary to NAFLD Chronic, with also concern of possibly liver cancer that is being worked up. Supportive care Stable now (10) COPD (chronic obstructive pulmonary disease): No noted breathing issues. Follow (11) HTN (hypertension): Uncertain if this is still an active diagnosis, her home meds that would also be for blood pressure are likely for her liver disease. 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 -continue Novolog 10 units qac plus SSI, continue Lantus 30 units bid (13) DVT prophylaxis: Heparin stopped due to Plt 50. (14) Discharge planning issues: Is back to baseline mental state, is ambulating independently, stable for dc to home Total Time Total Time Spent Total Time Spent (In Minutes): 35 min Total Time Includes: Examination of the Patient, Discharge Planning and Medication Reconciliation Discharge Plan Discharge Items Patient Disposition: Home - Home Health Services Reason For Visit: HEPATIC ENCEPHALOPATHY Discharge Diagnosis: Hepatic encephalopathy Condition on Discharge: Fair Goals: You have been hospitalized for an acute medical problem. During your stay at [facility], we have made an effort to correct the problem that brought you to the hospital while keeping you as comfortable as possible. Medications were used to bring your condition under control and your discharge instructions will include directions for any medications you should take after leaving the hospital. Please make sure you see your Primary Care Provider as part of your follow up plan. Activity: Resume your previous activity Weightbearing: Full weightbearing Non-emergency contact: Primary Care Provider Call non-emergency contact if: you have any medication questions and your symptoms worsen Follow-up/Referrals: Laila Thakkar MD [Primary Care Provider] - 08/04/19 11:30 am (Please, follow up at [facility] with Dr. Thakkar on WednesdayAugust 04 at 11:30 am. *If you need to change this appointment, call the office at [phone].) Diet: Low Sodium (2gm) Addtl Attending Provider Instructions: Please finish out the course of antibiotics for your urinary tract infection with amoxicillin three times a day. It is important that you have at least 2-3 bowel movements each day to keep your ammonia levels from building up. This is what the lactulose helps you with. Follow up with your PCP as scheduled. Pending Studies at Discharge: No Stand-Alone Forms: My [facility] Medications and DC Order Prescriptions: New amoxicillin 500 mg Capsule 500 mg PO TID 7 Days Qty: 21 RF: 0 Continued gabapentin 300 mg capsule 300 mg PO BID Qty: 60 RF: 5 Novolog Flexpen U-100 Insulin 100 unit/mL (3 mL) insulin pen See Rx Instructions SUBCUT .COMPLEX Qty: 15 RF: 1 lactulose [Enulose] 10 gram/15 mL solution 30 ml PO DIRECTED PRN (Reason: elevated ammmonia ) Qty: 1892 RF: 5 furosemide 20 mg tablet See Rx Instructions .ROUTE .COMPLEX Qty: 60 RF: 11 (DME) lancets 30 gauge misc See Dose Instructions .ROUTE .MEDSUPPLY RF: 0 atorvastatin 20 mg tablet 20 mg PO HS Qty: 90 RF: 0 (DME) pen needle, diabetic [BD Teressa 2nd Gen Pen Needle] 32 gauge x 5/32" needle See Rx Instructions .ROUTE .MEDSUPPLY Qty: 100 RF: 0 cholecalciferol (vitamin D3) 2,000 unit Capsule 2,000 unit PO QAM RF: 0 nadolol 20 mg tablet 20 mg PO QPM RF: 0 pantoprazole 40 mg tablet,delayed release (DR/EC) 40 mg PO BIDM RF: 0 folic acid 1 mg tablet 1 mg PO DAILY RF: 0 escitalopram oxalate 10 mg tablet 10 mg PO HS RF: 0 Refresh Liquigel 1 % Drops, Liquid Gel 1 drp OPB DAILY RF: 0 magnesium oxide 400 mg (241.3 mg magnesium) tablet 400 mg PO DAILY RF: 0 ferrous sulfate 325 mg (65 mg iron) tablet 325 mg PO BIDM RF: 0 Xifaxan 550 mg tablet 550 mg PO BID RF: 0 Novolog Flexpen U-100 Insulin 100 unit/mL (3 mL) Insulin Pen 10 units subcut TIDM Qty: 15 RF: 0 Basaglar KwikPen U-100 Insulin 100 unit/mL (3 mL) insulin pen See Rx Instructions .ROUTE .COMPLEX Qty: 15 RF: 11 Changed lactulose 20 gram/30 mL Solution 20 gm PO BID Qty: 3000 RF: 0 Discharge Orders: Discharge Order (Routine); Ordered 07/31/19 Ordered By: Shanice Yusuf Admission Data Admit Date/Time: 07/30/19 18:46 Attending Provider: Shanice Yusuf Admit Provider: Mitchell Bazan Primary Care Provider: Laila Thakkar Other Providers: Mitchell Bazan ; [facility] Other Interventions: Discharge Summary Assessment (RN) Last Done: 07/31/19 17:59 DC Date/Time DO NOT enter until pt leaves facility: 07/31/19 18:40
== END 2019-07-31 18:40 | disposition home health service (06) | DRG 442 ==
LOC: 2N 07:42 → ED 07:42 → SUATTDRO 10:12 → 2N 11:46 → SUATTDRO 07-30 18:46

== ENCOUNTER 2019-08-26 17:33 | Inpatient (IN) ==
[2019-08-26] MEDS ORDERED: ACETAMINOPHEN 1,000 MG/100 ML VIAL IV STA (17:54)
[2019-08-26] MEDS ORDERED: SODIUM CHLORIDE 0.9% 1000ML 1,000 ML IV ONE (17:54)
--- NOTE | 2019-08-26 18:07 | XRay Report ---
SINGLE VIEW CHEST CLINICAL HISTORY: Sepsis. FINDINGS: An AP, portable, upright chest radiograph is compared to study dated 07/28/2019. The examin ation is degraded by portable technique and patient rotation. The heart is enlarged noting atheroscle rotic calcification of the thoracic aorta. The pulmonary vasculature is noncongested. There is bibasi lar scarring/atelectasis. No airspace consolidation or large pleural effusion is identified. No pneum othorax is seen. The skeletal structures are osteopenic. The bony thorax is grossly intact. A surgica l anchor is noted in the left humeral head. IMPRESSION: Cardiomegaly with no active disease in the chest. ACT 112: Negative or not required by law. Electronically signed by: Valente Hightower M.D. 08/26/2019 6:06 PM
[2019-08-26 18:44] LABS: Hematocrit (blood only) 27.6 % (37-47); Hemoglobin 9.6 g/dL (12.0-16.0); Mean Corpuscular Hemoglobin 36.5 pg (25-34); Mean Corpuscular Hgb Conc 34.8 g/dL (32-36); Mean Corpuscular Volume 104.9 fL (80-100); RDW Coefficient of Variation 15.2 % (11.5-14.5); RDW Standard Deviation 57.8 fL (36.4-46.3); Red Blood Count 2.63 M/uL (4.2-5.4)
[2019-08-26] MEDS ORDERED: DAPTOmycin 375 MG in SYRINGE 0 ML IV ONE (18:45)
--- NOTE | 2019-08-26 18:45 | Emergency Department Note ---
Entered by Lina Domingo acting as a scribe for History of Present Illness General Chief complaint: Altered Mental Status Stated complaint: DOESNT KNOW WHERE SHE IS, CONFUSED Time Seen by Provider: 08/26/19 17:48 History of Present Illness Provider complaint: altered mental status Onset (ago): day(s) 1 Pain Consistency: + other (episode) Maximum Pain Intensity: 3 Quality: + other (altered mental status) Associated symptoms: + fever/chills and + other (abdominal pain is feeling better, positive blood cultures) Treatments prior to arrival: other (antibiotics) The patient is a 68 year old female who presents to the ED with complaints of an episode of altered mental status that started 1 day ago. Per son, the patient was seen here this morning at 0100 for the same reason. The patient notes that she had abdominal pain but it is feeling better now. The patients son states that when the patient was seen this morning, they took a stent out and discharged her with antibiotics. The patient states that she has taken the antibiotics today. The patients son states that he received a call today that advised him to take the patient back to the ED for admission because her blood culture was positive. Per son, the patient had a fever this morning. Home Medications Home Medications Medication Instructions Recorded Confirmed Type cholecalciferol (vitamin D3) 2,000 unit PO QAM 04/13/18 08/26/19 History gabapentin 300 mg capsule 300 mg PO BID #60 cap 03/01/19 08/26/19 Rx ferrous sulfate 325 mg PO BIDM 04/14/19 08/26/19 History magnesium oxide 400 mg PO DAILY 04/14/19 08/26/19 History lancets 30 gauge ea 04/19/19 08/16/19 History insulin aspart U-100 100 unit/mL See Rx Instructions SUBCUT 04/21/19 08/26/19 Rx (3 mL) subcutaneous pen .COMPLEX #15 ml escitalopram oxalate 10 mg PO HS 06/15/19 08/26/19 History folic acid 1 mg PO DAILY 06/15/19 08/26/19 History nadolol 20 mg PO QPM 06/15/19 08/26/19 History pantoprazole 40 mg PO BIDM 06/15/19 08/26/19 History atorvastatin 20 mg tablet 20 mg PO HS #90 tab 06/26/19 08/26/19 Rx furosemide 20 mg tablet See Rx Instructions .ROUTE 07/11/19 08/26/19 Rx .COMPLEX #60 tablet Xifaxan 550 mg PO BID 07/12/19 08/26/19 History Basaglar KwikPen U-100 Insulin See Rx Instructions .ROUTE 07/24/19 08/26/19 Rx .COMPLEX #15 milliliter lactulose 20 gm PO BID #3000 ml 07/31/19 08/26/19 Rx pen needle, diabetic 32 gauge x #100 ea 08/04/19 08/16/19 Rx 32" amoxicillin 500 mg PO TID 10 Days #30 cap 08/26/19 Rx Allergies Allergy/AdvReac Type Severity Reaction Status Date / Time methyl salicylate Allergy Mild RASH Verified 08/26/19 02:22 nickel Allergy Mild RASH Verified 08/26/19 02:22 zinc Allergy Mild RASH Verified 08/26/19 02:22 diphenhydramine AdvReac Intermediate BURNING Verified 08/26/19 02:22 EYES,DIZZY,BLISTERS Past Med/Surg History Medical History Anxiety Chronic back pain Cirrhosis FOLLOWS W/ [facility], MELD score 10. COPD (chronic obstructive pulmonary disease) (Chronic) Uses recuse inhaler ~ once/month Depression Diabetes mellitus, type 2 IDDM Esophageal varices Per EGD 11/30/2018: Nonbleeding grade 1 and small (<5 mm) esophageal varices. Hyperlipidemia Kidney stones Liver cancer DX 1-2 MONTHS AGO Migraine Neuropathy Osteoarthritis Pancytopenia (Acute) Poor historian Shortness of breath on exertion Skin cancer of face Sleep apnea PT UNABLE TO CONFIRM, DOES NOT USE ASSISTIVE DEVICE HS Surgical History History of arthroscopy of left shoulder History of arthroscopy of right knee History of bilateral cataract extraction History of carpal tunnel surgery of left wrist History of lithotripsy History of Mohs micrographic surgery for skin cancer History of tonsillectomy and adenoidectomy History of tooth extraction all teeth removed History of total abdominal hysterectomy and bilateral salpingo-oophorectomy Family History Brother Family history of diabetes mellitus Sister Family history of diabetes mellitus Other Family history non-contributory No family history of adverse response to anesthesia Social History Preferred Language: Ken[place] Communication Ability: Impaired Visual Impairment: No 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 Feels Safe at Home: Yes Smoking Status: Former smoker Tobacco Type: cigarettes ; Cigarettes Per Day: 4 PPD ; Second Hand Exposure: No ; Hx Alcohol Use: No Hx Substance Use: No Review of Systems See HPI for pertinent positives & negatives. and A total of 10 systems reviewed and were otherwise negative Physical Exam Vital Signs Vital Signs - 24 hr 08/26/19 17:44 08/26/19 18:09 08/26/19 18:48 Temperature 38.0 C H Temperature Source Oral Pulse Rate 71 68 Pulse Rate from SpO2 Sensor 67 Respiratory Rate 15 15 Respiratory Effort / Characteristics Non-Labored Respiratory Depth Normal Respiratory Pattern Regular Blood Pressure 139/69 144/54 H Blood Pressure Mean 92 116 Blood Pressure Position Sitting Pulse Oximetry 97 99 Oxygen Delivery Method Room Air Room Air Sepsis Recent Fever Within 48 Hours Yes Sepsis New/Unexplained Change in Mental Status No Sepsis Action Taken by Nursing No Action Required 08/26/19 19:00 08/26/19 19:15 08/26/19 19:30 Temperature 37.2 C Temperature Source Pulse Rate 68 66 66 Pulse Rate from SpO2 Sensor 67 66 65 Respiratory Rate 21 19 17 Respiratory Effort / Characteristics Respiratory Depth Respiratory Pattern Blood Pressure 142/77 H 137/52 L 129/52 L Blood Pressure Mean 107 102 95 Blood Pressure Position Pulse Oximetry 97 97 98 Oxygen Delivery Method Room Air Room Air Room Air Sepsis Recent Fever Within 48 Hours Sepsis New/Unexplained Change in Mental Status Sepsis Action Taken by Nursing GENERAL: Awake, alert, fatigued-ill appearing, in no distress HENT: Normocephalic, atraumatic. Oropharynx with dry mucous membranes and otherwise unremarkable. EYES: Normal conjunctiva. Sclera non-icteric. NECK: Supple. No nuchal rigidity. FROM. No JVD. RESPIRATORY: Clear to auscultation bilaterally. CARDIAC: Regular rate, normal rhythm. Extremities warm and well perfused. Pulses equal. ABDOMEN: Soft, non-distended. No tenderness to palpation. No rebound or guarding. No masses. RECTAL: Deferred. MUSCULOSKELETAL: Chest examination reveals no tenderness. The back is symmetrical on inspection without obvious abnormality. There is no CVA tenderness to palpation. No joint edema. LOWER EXTREMITIES: Calves are equal size bilaterally and non-tender. No edema. No discoloration. NEURO: Normal sensorium. No sensory or motor deficits noted. SKIN: No rash or jaundice noted. Course Course 175: Past medical records reviewed. The patient was evaluated in room C11B. A complete history and physical exam was performed. 1820: I discussed the patient's case with Dr. Hairston [facility], Hospitalist. She will evaluate the patient for further management. Consultations Consultation #1: I discussed the patient's case with Dr. Hairston [facility], Hospitalist. She will evaluate the patient for further management. Time: 18:20 Administered Medications Atorvastatin Calcium (Lipitor) 20 mg PO HS MELVI Stop: 09/25/19 20:59 Last Admin: 08/26/19 22:17 Dose: 20 mg Documented by: [id number] Escitalopram Oxalate (Lexapro Tab) 10 mg PO HS MELVI Stop: 09/25/19 20:59 Last Admin: 08/26/19 22:18 Dose: 10 mg Documented by: [id number] Gabapentin (Neurontin) 300 mg PO BID MELVI Stop: 09/25/19 20:59 Last Admin: 08/26/19 22:15 Dose: 300 mg Documented by: [id number] Potassium Chloride/Sodium Chloride (Normal Saline W/20 Meq Kcl) 20 meq in 1,000 mls @ 100 mls/hr IV .Q10H MELVI Stop: 08/27/19 06:59 Last Infusion: 08/26/19 23:30 Dose: 100 mls/hr Documented by: [id number] Admin: 08/26/19 22:14 Dose: 60 mls/hr Documented by: [id number] Ceftriaxone Sodium 2,000 mg/ (Dextrose) 70 mls @ 100 mls/hr IV Q24H MELVI; Protocol Stop: 09/05/19 20:59 Last Infusion: 08/26/19 23:26 Dose: 0 mls/hr Documented by: [id number] Admin: 08/26/19 22:13 Dose: 100 mls/hr Documented by: [id number] Insulin Aspart (Novolog Flexpen) 0 units SC ACHS MELVI Stop: 09/25/19 20:59 Last Admin: 08/26/19 22:23 Dose: 20 units Documented by: [id number] Cosigned by: [id number] Lactulose (Chronulac) 20 gm PO TID MELVI Stop: 09/25/19 20:59 Last Admin: 08/26/19 22:14 Dose: 20 gm Documented by: [id number] Nadolol (Corgard) 20 mg PO QPM MELVI Stop: 09/25/19 20:59 Last Admin: 08/26/19 22:15 Dose: 20 mg Documented by: [id number] Rifaximin (Xifaxan) 550 mg PO BID MELVI Stop: 09/25/19 20:59 Last Admin: 08/26/19 22:16 Dose: 550 mg Documented by: [id number] Discontinued Medications Sodium Chloride (Nss 1000ml) 1,000 mls @ 999 mls/hr IV .Q1H1M ONE Stop: 08/26/19 18:54 Last Infusion: 08/26/19 20:00 Dose: 0 mls/hr Documented by: [id number] Admin: 08/26/19 18:54 Dose: 999 mls/hr Documented by: [id number] Acetaminophen (Ofirmev) 1,000 mg in 100 mls @ 400 mls/hr IV NOW STA Stop: 08/26/19 18:08 Last Infusion: 08/26/19 19:09 Dose: 0 mls/hr Documented by: [id number] Admin: 08/26/19 18:55 Dose: 400 mls/hr Documented by: [id number] Daptomycin 375 mg/ Syringe 7.5 mls @ 3.75 mls/min IV NOW ONE; Protocol Stop: 08/26/19 18:46 Last Admin: 08/26/19 19:31 Dose: 3.75 mls/min Documented by: [id number] Magnesium Sulfate/Dextrose (Magnesium Sulfate / D5w) 1 gm in 100 mls @ 100 mls/hr IV ONE ONE Stop: 08/26/19 21:29 Last Infusion: 08/26/19 23:26 Dose: 0 mls/hr Documented by: [id number] Admin: 08/26/19 22:13 Dose: 100 mls/hr Documented by: [id number] Insulin Glargine (Lantus Solostar Pen) 30 units SC NOW ONE Stop: 08/26/19 21:16 Last Admin: 08/26/19 22:19 Dose: 30 units Documented by: [id number] Cosigned by: [id number] Medical Decision Making Differential Diagnosis Differential diagnosis: Etiologies such as viral syndrome, otitis, pharyngitis, pneumonia, influenza, meningitis, urinary tract infection, septic arthritis, soft tissue infectious process, intra-abdominal process, sepsis, bacteremia, as well as others were entertained. Medical Records Attestation: I reviewed the patient's medical records. Home Medications Current Medication List: was personally reviewed by me Laboratory Data Attestation: I reviewed the patient's lab results. Result diagrams: 08/26/19 18:25 08/26/19 18:25 Lab Results 08/26/19 08/26/19 08/26/19 Range/Units 18: 18: 18: WBC 6.50 (4.8-10.8) K/uL RBC 2.63 L (4.2-5.4) M/uL Hgb 9.6 L (12.0-16.0) g/dL Hct 27.6 L (37-47) % MCV 104.9 H (80-100) fL MCH 36.5 H (25-34) pg MCHC 34.8 (32-36) g/dL RDW Std Deviation 57.8 H (36.4-46.3) fL RDW Coeff of Chloe 15.2 H (11.5-14.5) % Plt Count 81 L (130-400) K/uL MPV 10.5 H (7.4-10.4) fL Immature Gran % (Auto) 0.3 % Neut % (Auto) 66.4 % Lymph % (Auto) 20.3 % [place]oux % (Auto) 11.5 % Eos % (Auto) 1.2 % Baso % (Auto) 0.3 % Immature Gran # (Auto) 0.02 (0.00-0.02) K/uL Neut # (Auto) 4.31 (1.4-6.5) K/uL Lymph # (Auto) 1.32 (1.2-3.4) K/uL [place]oux # (Auto) 0.75 H (0.11-0.59) K/uL Eos # (Auto) 0.08 (0-0.5) K/uL Baso # (Auto) 0.02 (0-0.2) K/uL PT 13.2 H (9.0-12.0) Seconds INR 1.3 H (0.9-1.1) APTT 30.1 (21.0-31.0) Seconds PTT Ratio 1.1 Sodium 137 (136-145) mmol/L Potassium 2.9 L (3.5-5.1) mmol/L Chloride 106 (98-107) mmol/L Carbon Dioxide 28 (21-32) mmol/L Anion Gap 4.0 (3-11) BUN 15 (7-18) mg/dl Creatinine 1.03 (0.6-1.2) mg/dl Est Cr Clr Drug Dosing 50.0 ml/min Est GFR ( Amer) 64.2 Est GFR (Non-Af Amer) 55.4 BUN/Creatinine Ratio 14.8 (10-20) Glucose 238 H (70-99) mg/dl Lactate (0.4-2.0) mmol/L Calcium 7.8 L (8.5-10.1) mg/dl Phosphorus 2.1 L (2.5-4.9) mg/dl Magnesium 1.6 L (1.8-2.4) mg/dl Total Bilirubin 1.4 H (0.2-1) mg/dl AST 59 H (15-37) U/L ALT 40 (12-78) U/L Alkaline Phosphatase 138 H (45-117) U/L Ammonia (11-32) umol/L Troponin I < 0.015 (0-0.045) ng/ml Total Protein 6.9 (6.4-8.2) gm/dl Albumin 2.3 L (3.4-5.0) gm/dl Globulin 4.6 H (2.5-4.0) gm/dl Albumin/Globulin Ratio 0.5 L (0.9-2) 08/26/19 08/26/19 Range/Units 18:25 18:25 WBC (4.8-10.8) K/uL RBC (4.2-5.4) M/uL Hgb (12.0-16.0) g/dL Hct (37-47) % MCV (80-100) fL MCH (25-34) pg MCHC (32-36) g/dL RDW Std Deviation (36.4-46.3) fL RDW Coeff of Chloe (11.5-14.5) % Plt Count (130-400) K/uL MPV (7.4-10.4) fL Immature Gran % (Auto) % Neut % (Auto) % Lymph % (Auto) % Sioux % (Auto) % Eos % (Auto) % Baso % (Auto) % Immature Gran # (Auto) (0.00-0.02) K/uL Neut # (Auto) (1.4-6.5) K/uL Lymph # (Auto) (1.2-3.4) K/uL Sioux # (Auto) (0.11-0.59) K/uL Eos # (Auto) (0-0.5) K/uL Baso # (Auto) (0-0.2) K/uL PT (9.0-12.0) Seconds INR (0.9-1.1) APTT (21.0-31.0) Seconds PTT Ratio Sodium (136-145) mmol/L Potassium (3.5-5.1) mmol/L Chloride (98-107) mmol/L Carbon Dioxide (21-32) mmol/L Anion Gap (3-11) BUN (7-18) mg/dl Creatinine (0.6-1.2) mg/dl Est Cr Clr Drug Dosing ml/min Est GFR ( Amer) Est GFR (Non-Af Amer) BUN/Creatinine Ratio (10-20) Glucose (70-99) mg/dl Lactate 2.1 H* (0.4-2.0) mmol/L Calcium (8.5-10.1) mg/dl Phosphorus (2.5-4.9) mg/dl Magnesium (1.8-2.4) mg/dl Total Bilirubin (0.2-1) mg/dl AST (15-37) U/L ALT (12-78) U/L Alkaline Phosphatase (45-117) U/L Ammonia 41.0 H (11-32) umol/L Troponin I (0-0.045) ng/ml Total Protein (6.4-8.2) gm/dl Albumin (3.4-5.0) gm/dl Globulin (2.5-4.0) gm/dl Albumin/Globulin Ratio (0.9-2) Imaging Data Radiologist's Impression: Radiology results as stated below per my review and the radiologist's interpretation: SINGLE VIEW CHEST CLINICAL HISTORY: Sepsis. FINDINGS: An AP, portable, upright chest radiograph is compared to study dated 07/28/2019. The examination is degraded by portable technique and patient rotation. The heart is enlarged noting atherosclerotic calcification of the thoracic aorta. The pulmonary vasculature is noncongested. There is bibasilar scarring/atelectasis. No airspace consolidation or large pleural effusion is identified. No pneumothorax is seen. The skeletal structures are osteopenic. The bony thorax is grossly intact. A surgical anchor is noted in the left humeral head. IMPRESSION: Cardiomegaly with no active disease in the chest. ACT 112: Negative or not required by law. Electronically signed by: Valente Hightower M.D. 08/26/2019 6:06 PM ECG Data Attestation: I personally reviewed and interpreted this ECG as follows: Indication: + altered mental status Rate (beats per minute): 70 Rhythm: + sinus rhythm ECG Findings: + PACs and + Other (nonspecific T wave abnormalities, QTC 570, QRS 98) Blood Pressure Blood Pressure Findings: Low blood pressure Blood Pressure Disposition: further management by hospitalist [facility] Narrative The patient is a pleasant 68-year-old woman with a past medical history of cirrhosis with a recent history of obstructive renal stone status post ureteral stent, status post removal on Wednesday who presented to the emergency department last night for generalized weakness and confusion callback due to positive blood cultures per HPI. Urine analysis at that time was convincing for infection. Patient was treated with dose of ceftriaxone and discharged on oral course of amoxicillin. The patient had a CT scan at that time demonstrated evidence of cystitis and the patient's known cirrhosis. There was right-sided nephrolithiasis but no ureteral stones. No hydronephrosis. The patient and family are at the bedside reports she is feeling improved since yesterday though still generally weak. On arrival the patient is febrile to 38.0 and otherwise vital signs stable. She appears clinically dry. Abdomen is benign. Review of the patient's blood work from last night does demonstrate 2/4 blood cultures positive for gram-positive cocci in chains. Reviewed the patient's prior urine culture from September/2018 does demonstrate enterococcus ECM which was pansensitive. EKG without evidence of acute ischemia. CXR negative. Repeat blood work and cultures were drawn. I discussed the case with our emergency department pharmacist and we agreed to proceed with IV daptomycin given the patient's bacteremia. Case was discussed with Dr. Gonzalez, [facility] hospitalist, who will evaluate the patient for admission. WBC wnl. H/H and platelet similar to prior range of values. INR 1.3 similar to prior. Lactate 2.1 however chemistry without acidosis. K 2.9 and Mg 1.6 to be repleted per admitting team. LFTs similar to prior. Ammonia 41 slightly elevated from recent but similar to prior range. Troponin negative/undetectable. Impression & Plan Bacteremia, Hypomagnesemia, UTI (urinary tract infection), Cirrhosis, Increased ammonia level Discharge Plan Visit Data *Final* Discharge Date/Time: 08/26/19 20:16 Chief Complaint: Altered Mental Status Stated Complaint: DOESNT KNOW WHERE SHE IS, CONFUSED ED Provider: Erwin Ulloa Discharge Problem: Bacteremia, Hypomagnesemia, UTI (urinary tract infection), Cirrhosis, Increased ammonia level Patient Disposition: Admitted As Inpatient Discharge Instructions Interventions: ED Discharge Assessment Last Done: 08/26/19 20:16 Discharge Problem: UTI (urinary tract infection) Qualifiers: Urinary tract infection type: site unspecified Hematuria presence: without hematuria Qualified Code(s): N39.0 - Urinary tract infection, site not specified Cirrhosis Qualifiers: Hepatic cirrhosis type: unspecified hepatic cirrhosis Ascites presence: unspecified Qualified Code(s): K74.60 - Unspecified cirrhosis of liver The scribe's documentation has been prepared under my direction and personally reviewed by me in its entirety. I confirm that the note above accurately reflects all work, treatment, procedures, and medical decision making performed by me.
[2019-08-26 18:57] LABS: Alanine Aminotransferase 40 U/L (12-78); Albumin Level 2.3 gm/dl (3.4-5.0); Aspartate Aminotransferase 59 U/L (15-37); BUN Creatinine Ratio 14.8 (10-20); Blood Urea Nitrogen 15 mg/dl (7-18); Calcium 7.8 mg/dl (8.5-10.1); Carbon Dioxide 28 mmol/L (21-32); Chloride 106 mmol/L (98-107); Est GFR (African American) 64.2; Est GFR (Non-African American) 55.4; Glucose 238 mg/dl (70-99); Magnesium 1.6 mg/dl (1.8-2.4); Potassium 2.9 mmol/L (3.5-5.1); Sodium 137 mmol/L (136-145)
[2019-08-26 19:02] LABS: Albumin Globulin Ratio 0.5 (0.9-2); Alkaline Phosphatase 138 U/L (45-117); Bilirubin,Total 1.4 mg/dl (0.2-1); Globulin 4.6 gm/dl (2.5-4.0); INR 1.3 (0.9-1.1); Partial Thromboplastin Ratio 1.1; Partial Thromboplastin Time 30.1 Seconds (21.0-31.0); Phosphorus 2.1 mg/dl (2.5-4.9); Prothrombin Time 13.2 Seconds (9.0-12.0); Total Protein 6.9 gm/dl (6.4-8.2); Troponin I < 0.015 ng/ml (0-0.045)
[2019-08-26 19:09] LABS: Mean Platelet Volume 10.5 fL (7.4-10.4); Platelet Count 81 K/uL (130-400)
[2019-08-26 19:11] LABS: Basophils # (auto) 0.02 K/uL (0-0.2); Basophils % (auto) 0.3 %; Eosinophils # (auto) 0.08 K/uL (0-0.5); Eosinophils % (auto) 1.2 %; Immature Granulocytes # (auto) 0.02 K/uL (0.00-0.02); Immature Granulocytes % (auto) 0.3 %; Lymphocytes # (auto) 1.32 K/uL (1.2-3.4); Lymphocytes % (auto) 20.3 %; Monocytes # (auto) 0.75 K/uL (0.11-0.59); Monocytes % (auto) 11.5 %; Neutrophils # (auto) 4.31 K/uL (1.4-6.5); Neutrophils % (auto) 66.4 %
--- NOTE | 2019-08-26 20:05 | History & Physical Report ---
Date of Service August 26, 2019 Assessment & Plan (1) Sepsis: Admits to PCU on telemetry for 2 out of 2 blood cultures positive for gram-positive cocci in chain. Specificity pending. Repeated blood cultures x2. Urine cultures pending. Last urine culture grew enterococcus faecium resistant to tetracycline, otherwise sensitive to Cipro penicillins and vancomycin. Since new blood culture grew gram-positive cocci in chain will treat with daptomycin IV. Monitor electrolytes and replenish DVT prophylaxis SCDs and teds Full code Present on Admission?: Yes (2) Hypomagnesemia: Given 1 g of magnesium in the ER Monitor magnesium and replenish as needed. Continue magnesium oxide 400 mg p.o. twice daily. Present on Admission?: Yes (3) Cystitis: Continue antibiotics as above Present on Admission?: Yes (4) Dehydration: Continue gentle IV fluid hydration with normal saline at 20meq potassium. Continue monitoring daily BUN. Present on Admission?: Yes (5) UTI (urinary tract infection): Continue daptomycin as discussed above. Present on Admission?: Yes (6) Hypokalemia: Potassium 2.9. Replenished p.o. and IV. Continue monitoring and replenish as needed Present on Admission?: Yes (7) Thrombocytopenia: Platelets are now 81. Likely related to her liver cirrhosis. Continue monitoring. Present on Admission?: Yes (8) Hepatic encephalopathy: Patient has altered mental status on arrival most likely due to sepsis and elevated ammonia level of 41. CT of the head pending. Continue lactulose. Increase to 3 times a day. Continue rifaximin 550 mg p.o.twice daily for liver cirrhosis. Present on Admission?: Yes (9) Altered mental status: As the above Present on Admission?: Yes (10) Ureterolithiasis: As discussed above. Consult urology Present on Admission?: Yes (11) Kidney stone on right side: Continue gentle IV fluid hydration and consult urology. Present on Admission?: Yes (12) Diabetes mellitus type 2 in obese: Glycemic control per pharmacy. Accu-Cheks before meals and at bedtime. Sliding scale insulin. A1c pending. Present on Admission?: Yes (13) Diabetic neuropathy: Continue gabapentin 300 mg p.o. twice daily Present on Admission?: Yes (14) Liver cirrhosis: Continue rifaximin 550 mg p.o. twice daily, Furosemide 20 mg p.o. daily, Pantoprazole 40 mg p.o. twice daily, Nadolol 20 mg p.o. every afternoon Present on Admission?: Yes History of Present Illness Chief Complaint: Altered mental status and lethargy Primary Care Provider: Laila Thakkar MD The patient is a 68 years old female with past medical history of liver cancer, liver cirrhosis, COPD, pancytopenia, neuropathy, right kidney stone, hepatic encephalopathy who was brought to the emergency room by her family with complaint that patient has altered mental status started the day before. Per son who is next to patient bedside the patient was seen yesterday at 1 AM in the emergency room for the same reason. She was given Rocephin at that time and discharged home with amoxicillin 500 mg p.o. 3 times daily for 10 days. The patient took antibiotics today. Later on today she received a call from the emergency room advising her to come back to the emergency room because her blood cultures were positive. Patient stated that she continued to have fever on and off during the day. Patient was yesterday seen in Dr. Aguilar office urologist where her Tethered stent was removed. Per Dr. Aguilar note the stent was removed without any problems. Patient tolerated procedure well. Per patient son patient was not feeling well since yesterday.Patient son reports that patient was drinking in the past a lot but she quit drinking approximately 1 year ago.She is also former smoker and she smoked 4 packs/day. Labs are reviewed: Sodium 137, potassium 2.9, chloride 106, carbon dioxide 28, anion gap 4, BUN 15, creatinine 1.03, GFR 55.4, glucose 238, lactate 2.1, will repeat lactate, calcium 7.8, phosphorus 2.1,magnesium is over 1.6, total bili 1.4, AST 59, ALT 40, alkaline phosphatase 138, ammonia 41, troponin 0.015, total protein 6.9, albumin 2.3, globulin 4.6,. Influenza A and B neg. CT abdomen pelvis: Findings suggest cystitis. Chronic liver morphology. Market splenomegaly trace abdominal ascites, upper abdominal varices, and a splenorenal shunt indicate portal hypertension. Right-sided nephrolithiasis. Liquid stool is noted throughout the colon. Correlate clinically for evidence of diarrheal disease. Cholelithiasis. Enlarged upper abdominal lymph nodes are likely related to chronic liver disease. Cardiomegaly and emphysema with evidence of anemia. Mild standing around the right colon suggest portal colopathy. Chest x-ray cardiomegaly with no active disease in the chest. Decision was made to admit patient to PCU on telemetry for sepsis most likely related to urinary tract i nfection earlier this week with positive nitrate 3+ blood, positive leukocyte esterase and positive bacteria. Allergies Allergy/AdvReac Type Severity Reaction Status Date / Time methyl salicylate Allergy Mild RASH Verified 08/26/19 02:22 nickel Allergy Mild RASH Verified 08/26/19 02:22 zinc Allergy Mild RASH Verified 08/26/19 02:22 diphenhydramine AdvReac Intermediate BURNING Verified 08/26/19 02:22 EYES,DIZZY,BLISTERS Home Medications Home Medications Medication Instructions Recorded Confirmed Type cholecalciferol (vitamin D3) 2,000 unit PO QAM 04/13/18 08/26/19 History gabapentin 300 mg capsule 300 mg PO BID #60 cap 03/01/19 08/26/19 Rx ferrous sulfate 325 mg PO BIDM 04/14/19 08/26/19 History magnesium oxide 400 mg PO DAILY 04/14/19 08/26/19 History lancets 30 gauge ea 04/19/19 08/16/19 History insulin aspart U-100 100 unit/mL See Rx Instructions SUBCUT 04/21/19 08/26/19 Rx (3 mL) subcutaneous pen .COMPLEX #15 ml escitalopram oxalate 10 mg PO HS 06/15/19 08/26/19 History folic acid 1 mg PO DAILY 06/15/19 08/26/19 History nadolol 20 mg PO QPM 06/15/19 08/26/19 History pantoprazole 40 mg PO BIDM 06/15/19 08/26/19 History atorvastatin 20 mg tablet 20 mg PO HS #90 tab 06/26/19 08/26/19 Rx furosemide 20 mg tablet See Rx Instructions .ROUTE 07/11/19 08/26/19 Rx .COMPLEX #60 tablet Xifaxan 550 mg PO BID 07/12/19 08/26/19 History Basaglar KwikPen U-100 Insulin See Rx Instructions .ROUTE 07/24/19 08/26/19 Rx .COMPLEX #15 milliliter lactulose 20 gm PO BID #3000 ml 07/31/19 08/26/19 Rx pen needle, diabetic 32 gauge x #100 ea 08/04/19 08/16/19 Rx " amoxicillin 500 mg PO TID 10 Days #30 cap 08/26/19 Rx Past Med/Surg History Medical History Anxiety Chronic back pain Cirrhosis FOLLOWS W/ [facility], MELD score 10. COPD (chronic obstructive pulmonary disease) (Chronic) Uses recuse inhaler ~ once/month Depression Diabetes mellitus, type 2 IDDM Esophageal varices Per EGD 11/30/2018: Nonbleeding grade 1 and small (<5 mm) esophageal varices. Hyperlipidemia Kidney stones Liver cancer DX 1-2 MONTHS AGO Migraine Neuropathy Osteoarthritis Pancytopenia (Acute) Poor historian Shortness of breath on exertion Skin cancer of face Sleep apnea PT UNABLE TO CONFIRM, DOES NOT USE ASSISTIVE DEVICE HS Surgical History History of arthroscopy of left shoulder History of arthroscopy of right knee History of bilateral cataract extraction History of carpal tunnel surgery of left wrist History of lithotripsy History of Mohs micrographic surgery for skin cancer History of tonsillectomy and adenoidectomy History of tooth extraction all teeth removed History of total abdominal hysterectomy and bilateral salpingo-oophorectomy Family History Brother Family history of diabetes mellitus Sister Family history of diabetes mellitus Other Family history non-contributory No family history of adverse response to anesthesia Social History Preferred Language: Kinyarwanda Communication Ability: Impaired Visual Impairment: No Limitations Film Loader Required: No Beliefs That Will Affect Care: None marital status: / Current Living Situation: Family Current Living Situation Comment: With son. Other Information That Helps Us Care for You: No Feels Safe at Home: Yes Smoking Status: Former smoker Tobacco Type: cigarettes ; Cigarettes Per Day: 4 PPD ; Second Hand Exposure: No ; Hx Alcohol Use: No Hx Substance Use: No Review of Systems Review of Systems: All systems reviewed & are unremarkable except as noted in HPI & below Physical Exam Constitutional: WD/WN, vitals as above well developed and + ill appearing Eyes: PERRL, conjunctivae normal, anicteric sclerae ENMT: external ear and nose normal, oropharynx normal Neck: trachea midline, no thyromegaly Respiratory: normal respiratory effort, lungs clear to auscultation Cardiovascular: Heart Sounds: normal S1, normal S2 and + murmur Vessels: dorsalis pedis pulses present Gastrointestinal (Abdomen): normal bowel sounds, soft, nontender, no hepatosplenomegaly Musculoskeletal: no cyanosis or clubbing, extremities motor strength 5/5 Skin: no rashes, warm and dry Neurologic: patellar DTR's 2+ bilat, sensation intact Psychiatric: Orientation: alert Insight: + limited insight Lymphatic: no cervical or axillary lymphadenopathy Results & Data Vital Signs (Past 12 Hours) Vital Signs Temp Pulse Resp BP Pulse Ox 08/26/19 19:30 37.2 C 66 17 129/52 L 98 08/26/19 19:15 66 19 137/52 L 97 08/26/19 19:00 68 21 142/77 H 97 08/26/19 18:48 68 15 144/54 H 99 08/26/19 17:44 38.0 C H 71 15 139/69 97 Code Status & VTE Plan Code Status Full code VTE Prophylaxis Plan VTE Prophylaxis will be ordered: Yes PG Care Time/CCT Total # of Minutes Spent Total Time Spent with Patient: Total time spent is greater than 50% in coordination of care (as documented) at patient's floor/unit and/or counseling patient: Coding Level of Care Code 69124 Initial Inpt Care Lvl 3 Diagnoses Sepsis A41.9 Hypomagnesemia E83.42 Cystitis N30.90 Dehydration E86.0 UTI (urinary tract infection) N39.0 Hematuria presence: without hematuria Urinary tract infection type: site unspecified Hypokalemia E87.6 Thrombocytopenia D69.6 Hepatic encephalopathy K72.90 Altered mental status R41.82 Ureterolithiasis N20.1 Kidney stone on right side N20.0 Diabetes mellitus type 2 in obese E11.69; E66.9 Diabetic neuropathy E11.40 Liver cirrhosis K74.60 (1) UTI (urinary tract infection) Hematuria presence: without hematuria Urinary tract infection type: site unspecified Qualified Code(s): N39.0 - Urinary tract infection, site not specified
[2019-08-26] MEDS ORDERED: MAGNESIUM SULFATE / D5W 1 GM/100 ML BAG IV ONE (20:30)
[2019-08-26] MEDS ORDERED: GLUCOSE 40% GEL 15 GM TUBE PO PRN (20:41)
[2019-08-26] MEDS ORDERED: GLUCAGON FOR INJ 1 MG VIAL SQ PRN (20:41)
[2019-08-26] MEDS ORDERED: MAGNESIUM HYDROXIDE SUSP 30 ML UDC PO PRN (20:41)
[2019-08-26] MEDS ORDERED: GLUCOSE 10 TABS/TUBE PO PRN (20:41)
[2019-08-26] MEDS ORDERED: ALUMINUM/MAGNESIUM SUSP 30 ML UDC PO PRN (20:41)
[2019-08-26] MEDS ORDERED: FUROSEMIDE 20 MG TAB PO PRN (20:41)
[2019-08-26] MEDS ORDERED: CARBOHYDRATES FOR HYPOGLYCEMIA PO PRN (20:41)
[2019-08-26] MEDS ORDERED: DEXTROSE 50% 50 ML SYRINGE IV PRN (20:41)
[2019-08-26] MEDS ORDERED: NSS + 20MEQ KCL 20 MEQ/1,000 ML BAG IV SCH (21:00)
[2019-08-26] MEDS ORDERED: PHARMACY GLYCEMIC MGMT CONSULT PRN (21:06)
[2019-08-26] MEDS ORDERED: INSULIN GLARGINE SOLOSTAR 100 UNITS/ML 3 ML PEN SC ONE (21:15)
--- NOTE | 2019-08-26 22:05 | CT Scan Report ---
CT SCAN OF THE BRAIN WITHOUT IV CONTRAST CLINICAL HISTORY: Change in mental status. COMPARISON STUDY: CT of the brain dated 07/18/2019. TECHNIQUE: Unenhanced axial CT scan of the brain is performed from the vertex to the skull base. A d ose lowering technique was utilized adhering to the principles of ALARA. CT DOSE: 1842.50 mGy.cm FINDINGS: Brain parenchyma: Minimal microangiopathic change is noted. There is no hemorrhage, mass effect, or e vidence of acute territorial ischemia by CT criteria. Li-white matter differentiation is preserved. No extra-axial fluid collection is seen. Ventricles, sulci, cisterns: Normal in configuration. Intracranial vasculature: There is atherosclerotic calcification of the cavernous carotid arteries. Calvarium: Unremarkable. Sinuses and mastoids: The visualized paranasal sinuses are clear. The mastoid air cells are well pneu matized. Orbits: The bony orbits are grossly intact. There are bilateral ocular lens implants. IMPRESSION: There is no hemorrhage, mass effect, or evidence of acute territorial ischemia by CT moris jacobs. ACT 112: Negative or not required by law. Electronically signed by: Valente Hightower M.D. 08/26/2019 10:03 PM
[2019-08-26] MEDS: cefTRIAXone SODIUM 2,000 MG in DEXTROSE 5% 50 ML IV SCH (22:13)
[2019-08-26] MEDS: LACTULOSE SYRUP 20 GM/30 ML UDC PO SCH (22:14)
[2019-08-26] MEDS: GABAPENTIN 300 MG CAP PO SCH (22:15)
[2019-08-26] MEDS: nadoloL 40 MG TAB PO SCH (22:15)
[2019-08-26] MEDS: RIFAXIMIN 550 MG TABLET PO SCH (22:16)
[2019-08-26] MEDS: ATORVASTATIN 20 MG TAB PO SCH (22:17)
[2019-08-26] MEDS: ESCITALOPRAM OXALATE 10 MG TAB PO SCH (22:18)
[2019-08-26] MEDS: INSULIN ASPART 100 UNITS/ML 3 ML PEN SC SCH (22:23)
[2019-08-27 04:15] LABS: Appearance Urine Cloudy (Clear); Bacteria Urine Automated 2+ (Negative); Bilirubin Urine Negative (Negative); Blood Urine 3+ (Negative); Color Urine Dark Yellow; Epithelial Cell Urine Auto 20-30 /lpf (0-5); Glucose Urine UA Negative (Negative); Ketones Urine Negative (Negative); Leukocyte Esterase Urine 2+ (Negative); Nitrite Urine Positive (Negative); Protein Urine 1+ (Negative); Specific Gravity Urine 1.017 (1.000-1.030); Urobilinogen Urine Negative (Negative); WBC Urine Automated >30 /hpf (0-5); pH Urine 5.5 (4.5-7.5)
[2019-08-27 05:42] LABS: Hematocrit (blood only) 24.6 % (37-47); Hemoglobin 8.6 g/dL (12.0-16.0); Mean Corpuscular Hemoglobin 36.1 pg (25-34); Mean Corpuscular Volume 103.4 fL (80-100); RDW Coefficient of Variation 15.4 % (11.5-14.5); RDW Standard Deviation 57.3 fL (36.4-46.3); Red Blood Count 2.38 M/uL (4.2-5.4); White Blood Count 6.47 K/uL (4.8-10.8)
[2019-08-27 05:57] LABS: INR 1.4 (0.9-1.1); Prothrombin Time 14.3 Seconds (9.0-12.0)
[2019-08-27 06:02] LABS: Albumin Level 1.8 gm/dl (3.4-5.0); Bilirubin,Total 0.9 mg/dl (0.2-1); Calcium 7.4 mg/dl (8.5-10.1); Creatinine Clr Calc Pharmacy 54.8 ml/min; Est GFR (African American) 70.8; Est GFR (Non-African American) 61.1; Potassium 2.9 mmol/L (3.5-5.1)
[2019-08-27 06:07] LABS: Albumin Globulin Ratio 0.5 (0.9-2); Globulin 3.7 gm/dl (2.5-4.0); Total Protein 5.5 gm/dl (6.4-8.2)
[2019-08-27 06:08] LABS: Mean Platelet Volume 9.8 fL (7.4-10.4); Platelet Count 57 K/uL (130-400)
[2019-08-27 06:09] LABS: Basophils # (auto) 0.01 K/uL (0-0.2); Basophils % (auto) 0.2 %; Eosinophils # (auto) 0.09 K/uL (0-0.5); Eosinophils % (auto) 1.4 %; Immature Granulocytes # (auto) 0.01 K/uL (0.00-0.02); Immature Granulocytes % (auto) 0.2 %; Lymphocytes # (auto) 1.11 K/uL (1.2-3.4); Lymphocytes % (auto) 17.2 %; Monocytes # (auto) 0.68 K/uL (0.11-0.59); Monocytes % (auto) 10.5 %; Neutrophils # (auto) 4.57 K/uL (1.4-6.5); Neutrophils % (auto) 70.5 %
--- NOTE | 2019-08-27 07:07 | Ultrasound Report ---
US liver HISTORY: 68 years-old Female alcoholic cirrhosis cirrhotic liver disease COMPARISON: CT abdomen pelvis 08/26/2019, 07/18/2019. TECHNIQUE: Multiple real-time sonographic images of the abdominal right upper quadrant were obtained assessing grayscale appearance and color flow FINDINGS: Pancreas is obscured by bowel gas. Heterogeneous morphology of the liver with marginal nodularity com patible with cirrhosis. [Port appearing lesion of the right hepatic lobe with peripheral decreased ec hogenicity and central portion isoechoic to adjacent liver parenchyma overall measuring 3.8 x 2.3 x 3 .2 cm. Normal common bile duct, 6 mm. Trace right upper quadrant abdominal ascites. No appreciable co syed Doppler flow identified within the portal vein abnormal waveforms with power Doppler may be secon mayco to artifact from adjacent vessels. Gallbladder wall is thickened measuring up to 7 mm. Shadowing cholelithiasis is also noted with negat angelito sonographic Jackman's sign. Multiple cystic foci of the right kidney are seen measuring up to 2.8 cm. 4 mm nonobstructing calculus of the inferior pole right kidney. IMPRESSION: 1. Cirrhotic morphology of the liver with heterogeneous 3.8 cm lesion of the right hepatic lobe. In t he setting of cirrhotic liver disease, hepatocellular carcinoma is the primary differential considera tion. Correlate with alpha-fetoprotein level. 2. No appreciable color Doppler flow identified within the portal vein suspicious for portal vein thr ombus. 3. Trace perihepatic ascites. 4. Cholelithiasis with gallbladder wall thickening. Correlate clinically to exclude acute cholecystit is. Correlation with nuclear medicine hepatobiliary scan may also be considered. ACT 112: Negative or not required by law. The above report was generated using voice recognition software. It may contain grammatical, syntax o r spelling errors. Electronically signed by: Servando Nunez M.D. 08/27/2019 7:06 AM
[2019-08-27] MEDS: POTASSIUM CHLORIDE / WTR 10 MEQ/100 ML PLCT IV SCH ×2 (07:11→08:21)
[2019-08-27] MEDS: PANTOprazole 40 MG TAB PO SCH ×2 (08:16→17:09)
[2019-08-27] MEDS: MAGNESIUM OXIDE 400 MG TAB PO SCH ×2 (08:16→20:34)
[2019-08-27] MEDS: RIFAXIMIN 550 MG TABLET PO SCH ×2 (08:16→20:34)
[2019-08-27] MEDS: LACTULOSE SYRUP 20 GM/30 ML UDC PO SCH ×3 (08:17→20:33)
[2019-08-27] MEDS: FOLIC ACID 1 MG TAB PO SCH (08:17)
[2019-08-27] MEDS: POTASSIUM CHLORIDE 20 MEQ TABCR PO SCH (08:17)
[2019-08-27] MEDS: FERROUS SULFATE 325 MG TAB PO SCH ×2 (08:17→17:08)
[2019-08-27] MEDS: GABAPENTIN 300 MG CAP PO SCH ×2 (08:17→20:33)
[2019-08-27] MEDS: CHOLECALCIFEROL 1,000 UNITS 25 MCG TAB PO SCH (08:17)
[2019-08-27] MEDS: INSULIN GLARGINE SOLOSTAR 100 UNITS/ML 3 ML PEN SC SCH ×2 (08:18→20:35)
[2019-08-27] MEDS: INSULIN ASPART 100 UNITS/ML 3 ML PEN SC SCH ×4 (08:20→20:27)
[2019-08-27] MEDS ORDERED: MAGNESIUM OXIDE 400 MG TAB PO SCH (09:00)
[2019-08-27] MEDS ORDERED: DAPTOmycin 500 MG VIAL IV SCH (09:00)
--- NOTE | 2019-08-27 10:35 | Pharmacy Report ---
Glycemic Control Consultation - Date of Service August 27, 2019 - Scope Scope: Glycemic Pharmacist consulted by Dr Gonzalez on 08/27/2019 for glycemic control and to write orders per [facility] inpatient glycemic control protocol - Objective Weight: 73.1 kg Accuchecks BSG (last 24hrs): 08/26/19 08/26/19 08/27/19 18:25 22:10 05:29 Glucose 238 H 168 H POC Glucose 242 H 08/27/19 07:17 Glucose POC Glucose 201 H Laboratory Data (last 24hrs): 08/26/19 08/27/19 18:25 05:29 Potassium 2.9 L 2.9 L Carbon Dioxide 28 25 Anion Gap 4.0 4.0 Creatinine 1.03 0.95 Est Cr Clr Drug Dosing 50.0 54.8 - Recent Pertinent Medications Outpatient Anti-diabetic Regimen: * Lantus 30-40u BID, Novolog SSI * A1c = 8.8 % 06/17/19 - Assessment & Plan Assessment & Plan: ASSESSMENT: * Pt is a 68yo F known to the pharmacy glycemic service from previous admissions. She is a type II diabetic. PMHx consistent with COPD, HE, liver cirrhosis, GI varices, among others. P/w gram-positive chains in 2/2 BC. On dapto + Rocephin. She is ordered a diet. She typically requires less insulin while hospitalized as compared to home. We will use a regimen that has yielded adequate BSGs historically. PLAN FOR INPATIENT GLYCEMIC CONTROL: * Basal insulin * Lantus scale SQ BID, see MAR for further details * Bolus insulin * NovoLog per scale ACHS or Q6hrs while NPO * Goal Range: Low 110 mg/dL - High 150 mg/dL * Correction Factor: 25 mg/dL/unit * Nutritional / Prandial insulin per carb ratio of 1 unit per 3 grams CHO consumed * Please note that the plan above was derived based on current level of insulin resistance and hospital stress. These recommendations are appropriate for inpatient admission only. Plan of care upon discharge will need to be reassessed to avoid potential outpatient hypo/hyperglycemia. Thank you.
--- NOTE | 2019-08-27 12:53 | Urology Consultation ---
Date of Consultation August 27, 2019 Assessment & Plan (1) UTI (urinary tract infection): A/P 68-year-old female admitted with bacteremia and sepsis, postop right ureteroscopy, laser lithotripsy and recent stent removal. Findings are reviewed with the patient today. The timing of her sepsis is consistent with urinary tract origin associated with manipulation of her stone and stent. However, her current CT scan imaging does not suggest ongoing obstruction. Patient reports she tolerated her stent poorly and is clinically improving and responding appropriately to ongoing therapy with fluids and IV antibiotics. Therefore I suspect that acute reinsertion of the patient's ureteral stent is not necessary at this time. Would continue to monitor closely as this could change if stone fragments migrated into the ureter acutely. Continue broad-spectrum antibiotic coverage per primary service until final cultures return. I suspect the patient will need 2 weeks of antibiotics for complicated UTI/urosepsis. Patient vocalizes understanding of the treatment plan. Thank you for allowing us to participate in this patient's acute care. We will continue to follow. Please contact our service with any questions or concerns. (2) Sepsis: History of Present Illness Reason for Consultation: Urosepsis, history of right renal stone. Attending Physician: Mitchell Bazan DO History of Present Illness Patient is a pleasant 68-year-old female, well-known to our service who is postoperative day #5 status post right ureteroscopy, laser lithotripsy and stent placement, postoperative day #2 after removal of tethered stent in the office. Patient reports that she had significant difficulties with abdominal pain and discomfort after her stent removal and subsequently presented to the emergency room for confusion and suspicion of infection. She was provided with intravenous and p.o. antibiotics there and cultures were taken. She was contacted to return for hospitalization after her blood cultures were noted to be positive, final sensitivities pending. She is currently admitted to the medical ICU and reports that she is feeling much improved over her presentation after intravenous antibiotics and hydration. CT scan of the abdomen and pelvis was done on presentation and is personally reviewed. This demonstrates stone fragments in the right kidney consistent with the patient's operative course and note, no significant hydronephrosis or evidence of obstruction and questionable minimal debris within the right distal ureter. She denies significant passage of stone debris after her stent removal, does note some lower abdominal pain after it came out but no clear colicky symptoms.. Patient also complains of musculoskeletal left shoulder pain. She is noted to remain febrile with approximately every 24 hour fever spikes. Urology consultation is requested to assist with her care. Allergies Allergy/AdvReac Type Severity Reaction Status Date / Time methyl salicylate Allergy Mild RASH Verified 08/26/19 02:22 nickel Allergy Mild RASH Verified 08/26/19 02:22 zinc Allergy Mild RASH Verified 08/26/19 02:22 diphenhydramine AdvReac Intermediate BURNING Verified 08/26/19 02:22 EYES,DIZZY,BLISTERS Home Medications Home Medications Medication Instructions Recorded Confirmed Type cholecalciferol (vitamin D3) 2,000 unit PO QAM 04/13/18 08/26/19 History gabapentin 300 mg capsule 300 mg PO BID #60 cap 03/01/19 08/26/19 Rx ferrous sulfate 325 mg PO BIDM 04/14/19 08/26/19 History magnesium oxide 400 mg PO DAILY 04/14/19 08/26/19 History lancets 30 gauge ea 04/19/19 08/16/19 History insulin aspart U-100 100 unit/mL See Rx Instructions SUBCUT 04/21/19 08/26/19 Rx (3 mL) subcutaneous pen .COMPLEX #15 ml escitalopram oxalate 10 mg PO HS 06/15/19 08/26/19 History folic acid 1 mg PO DAILY 06/15/19 08/26/19 History nadolol 20 mg PO QPM 06/15/19 08/26/19 History pantoprazole 40 mg PO BIDM 06/15/19 08/26/19 History atorvastatin 20 mg tablet 20 mg PO HS #90 tab 06/26/19 08/26/19 Rx furosemide 20 mg tablet See Rx Instructions .ROUTE 07/11/19 08/26/19 Rx .COMPLEX #60 tablet Xifaxan 550 mg PO BID 07/12/19 08/26/19 History Basaglar KwikPen U-100 Insulin See Rx Instructions .ROUTE 07/24/19 08/26/19 Rx .COMPLEX #15 milliliter lactulose 20 gm PO BID #3000 ml 07/31/19 08/26/19 Rx pen needle, diabetic 32 gauge x #100 ea 08/04/19 08/16/19 Rx 5/32" amoxicillin 500 mg PO TID 10 Days #30 cap 08/26/19 Rx Patient History Medical History Anxiety Chronic back pain Cirrhosis FOLLOWS W/ [facility], MELD score 10. COPD (chronic obstructive pulmonary disease) (Chronic) Uses recuse inhaler ~ once/month Depression Diabetes mellitus, type 2 IDDM Esophageal varices Per EGD 11/30/2018: Nonbleeding grade 1 and small (<5 mm) esophageal varices. Hyperlipidemia Kidney stones Liver cancer DX 1-2 MONTHS AGO Migraine Neuropathy Osteoarthritis Pancytopenia (Acute) Poor historian Shortness of breath on exertion Skin cancer of face Sleep apnea PT UNABLE TO CONFIRM, DOES NOT USE ASSISTIVE DEVICE HS Surgical History (Updated 08/27/19 @ 12:58 by Abdirahman Nettles MD) History of arthroscopy of left shoulder History of arthroscopy of right knee History of bilateral cataract extraction History of carpal tunnel surgery of left wrist History of lithotripsy History of Mohs micrographic surgery for skin cancer History of tonsillectomy and adenoidectomy History of tooth extraction all teeth removed History of total abdominal hysterectomy and bilateral salpingo-oophorectomy S/P ureteral stent placement Status post laser lithotripsy of ureteral calculus Family History Brother Family history of diabetes mellitus Sister Family history of diabetes mellitus Other Family history non-contributory No family history of adverse response to anesthesia Social History Preferred Language: [place]ijani Communication Ability: Impaired Visual Impairment: No Limitations Offc Spec Required: No Beliefs That Will Affect Care: None marital status: / Current Living Situation: Family Current Living Situation Comment: With son. Feels Safe at Home: Yes Smoking Status: Former smoker Tobacco Type: cigarettes ; Cigarettes Per Day: 4 PPD ; Second Hand Exposure: No ; Hx Alcohol Use: No Hx Substance Use: No Review of Systems Constitutional: + fever Eyes: no diplopia Ear, Nose, Mouth, Throat: no ear trauma Respiratory: no hemoptysis Cardiovascular: no chest pain Gastrointestinal: + abdominal pain; no vomiting Genitourinary: as per Subjective / HPI Musculoskeletal: + joint pain Integumentary: no acne and no boil Neurologic: no paralysis Psychiatric: no hopelessness Hematologic / Lymphatic: no lymphadenopathy Allergy / Immunological: no tongue swelling Physical Exam Constitutional: + obese; no acute distress Eyes: eyes not dysmorphic ENMT: Ears: no external ear abnormality Neck: trachea midline; no anterior neck swelling Respiratory: no respiratory distress and does not use accessory muscles Cardiovascular: Vessels: radial pulses present Gastrointestinal (Abdomen): Inspection/Auscultation: abdomen not distended Percussion/Palpation: abdomen soft; abdomen nontender Musculoskeletal: Head/Neck/Chest: normocephalic and neck supple Skin: normal turgor Neurologic: awake; not obtunded Psychiatric: Orientation: oriented x 3 Lymphatic: no lymphadenopathy Results & Data Vital Signs (Past 12 Hours) Vital Signs Temp Pulse Pulse Resp BP Pulse Ox 08/27/19 11:16 37.9 C H 70 20 116/42 L 98 08/27/19 08:00 63 08/27/19 07:57 37 C 70 18 115/35 L 93 08/27/19 03:46 37.2 C 62 20 137/43 L 95 Laboratory Results Laboratory Results - last 48 hr 08/26/19 08/26/19 08/26/19 18:25 18:25 18:25 WBC 6.50 RBC 2.63 L Hgb 9.6 L Hct 27.6 L MCV 104.9 H MCH 36.5 H MCHC 34.8 RDW Std Deviation 57.8 H RDW Coeff of Chloe 15.2 H Plt Count 81 L MPV 10.5 H Immature Gran % (Auto) 0.3 Neut % (Auto) 66.4 Lymph % (Auto) 20.3 [place] % (Auto) 11.5 Eos % (Auto) 1.2 Baso % (Auto) 0.3 Immature Gran # (Auto) 0.02 Neut # (Auto) 4.31 Lymph # (Auto) 1.32 [place] # (Auto) 0.75 H Eos # (Auto) 0.08 Baso # (Auto) 0.02 PT 13.2 H INR 1.3 H APTT 30.1 PTT Ratio 1.1 Sodium 137 Potassium 2.9 L Chloride 106 Carbon Dioxide 28 Anion Gap 4.0 BUN 15 Creatinine 1.03 Est Cr Clr Drug Dosing 50.0 Est GFR ( Amer) 64.2 Est GFR (Non-Af Amer) 55.4 BUN/Creatinine Ratio 14.8 Glucose 238 H POC Glucose Lactate Calcium 7.8 L Phosphorus 2.1 L Magnesium 1.6 L Total Bilirubin 1.4 H AST 59 H ALT 40 Alkaline Phosphatase 138 H Ammonia Troponin I < 0.015 Total Protein 6.9 Albumin 2.3 L Globulin 4.6 H Albumin/Globulin Ratio 0.5 L Triglycerides Cholesterol LDL Cholesterol, Calc VLDL Cholesterol, Calc HDL Cholesterol Cholesterol/HDL Ratio Urine Color Urine Appearance Urine pH Ur Specific [place] Urine Protein Urine Glucose (UA) Urine Ketones Urine Blood Urine Nitrite Urine Bilirubin Urine Urobilinogen Ur Leukocyte Esterase Urine WBC (Auto) Urine RBC (Auto) U Hyaline Cast (Auto) U Epithel Cells (Auto) Urine Bacteria (Auto) Urine Yeast 08/26/19 08/26/19 08/26/19 18:25 18:25 20:20 WBC RBC Hgb Hct MCV MCH MCHC RDW Std Deviation RDW Coeff of Chloe Plt Count MPV Immature Gran % (Auto) Neut % (Auto) Lymph % (Auto) [place] % (Auto) Eos % (Auto) Baso % (Auto) Immature Gran # (Auto) Neut # (Auto) Lymph # (Auto) [place] # (Auto) Eos # (Auto) Baso # (Auto) PT INR APTT PTT Ratio Sodium Potassium Chloride Carbon Dioxide Anion Gap BUN Creatinine Est Cr Clr Drug Dosing Est GFR ( Amer) Est GFR (Non-Af Amer) BUN/Creatinine Ratio Glucose POC Glucose Lactate 2.1 H* 1.6 Calcium Phosphorus Magnesium Total Bilirubin AST ALT Alkaline Phosphatase Ammonia 41.0 H Troponin I Total Protein Albumin Globulin Albumin/Globulin Ratio Triglycerides Cholesterol LDL Cholesterol, Calc VLDL Cholesterol, Calc HDL Cholesterol Cholesterol/HDL Ratio Urine Color Urine Appearance Urine pH Ur Specific [place] Urine Protein Urine Glucose (UA) Urine Ketones Urine Blood Urine Nitrite Urine Bilirubin Urine Urobilinogen Ur Leukocyte Esterase Urine WBC (Auto) Urine RBC (Auto) U Hyaline Cast (Auto) U Epithel Cells (Auto) Urine Bacteria (Auto) Urine Yeast 08/26/19 08/27/19 08/27/19 22:10 03:53 05:29 WBC 6.47 RBC 2.38 L Hgb 8.6 L Hct 24.6 L MCV 103.4 H MCH 36.1 H MCHC 35.0 RDW Std Deviation 57.3 H RDW Coeff of Chloe 15.4 H Plt Count 57 L MPV 9.8 Immature Gran % (Auto) 0.2 Neut % (Auto) 70.5 Lymph % (Auto) 17.2 [place] % (Auto) 10.5 Eos % (Auto) 1.4 Baso % (Auto) 0.2 Immature Gran # (Auto) 0.01 Neut # (Auto) 4.57 Lymph # (Auto) 1.11 L [place] # (Auto) 0.68 H Eos # (Auto) 0.09 Baso # (Auto) 0.01 PT INR APTT PTT Ratio Sodium Potassium Chloride Carbon Dioxide Anion Gap BUN Creatinine Est Cr Clr Drug Dosing Est GFR ( Amer) Est GFR (Non-Af Amer) BUN/Creatinine Ratio Glucose POC Glucose 242 H Lactate Calcium Phosphorus Magnesium Total Bilirubin AST ALT Alkaline Phosphatase Ammonia Troponin I Total Protein Albumin Globulin Albumin/Globulin Ratio Triglycerides Cholesterol LDL Cholesterol, Calc VLDL Cholesterol, Calc HDL Cholesterol Cholesterol/HDL Ratio Urine Color Dark Yellow Urine Appearance Cloudy A Urine pH 5.5 Ur Specific [place] 1.017 Urine Protein 1+ H Urine Glucose (UA) Negative Urine Ketones Negative Urine Blood 3+ H Urine Nitrite Positive A Urine Bilirubin Negative Urine Urobilinogen Negative Ur Leukocyte Esterase 2+ H Urine WBC (Auto) >30 H Urine RBC (Auto) 10-30 H U Hyaline Cast (Auto) 1-5 U Epithel Cells (Auto) 20-30 H Urine Bacteria (Auto) 2+ H Urine Yeast Budding A 08/27/19 08/27/19 08/27/19 05:29 05:29 05:29 WBC RBC Hgb Hct MCV MCH MCHC RDW Std Deviation RDW Coeff of Chloe Plt Count MPV Immature Gran % (Auto) Neut % (Auto) Lymph % (Auto) [place] % (Auto) Eos % (Auto) Baso % (Auto) Immature Gran # (Auto) Neut # (Auto) Lymph # (Auto) [place] # (Auto) Eos # (Auto) Baso # (Auto) PT 14.3 H INR 1.4 H APTT PTT Ratio Sodium 140 Potassium 2.9 L Chloride 111 H Carbon Dioxide 25 Anion Gap 4.0 BUN 15 Creatinine 0.95 Est Cr Clr Drug Dosing 54.8 Est GFR ( Amer) 70.8 Est GFR (Non-Af Amer) 61.1 BUN/Creatinine Ratio 16.0 Glucose 168 H POC Glucose Lactate Calcium 7.4 L Phosphorus Magnesium Total Bilirubin 0.9 D AST 62 H ALT 37 Alkaline Phosphatase 119 H Ammonia 91.0 H Troponin I Total Protein 5.5 L D Albumin 1.8 L Globulin 3.7 Albumin/Globulin Ratio 0.5 L Triglycerides 105 Cholesterol 67 LDL Cholesterol, Calc 26 VLDL Cholesterol, Calc 21 HDL Cholesterol 20 Cholesterol/HDL Ratio 3 Urine Color Urine Appearance Urine pH Ur Specific [place] Urine Protein Urine Glucose (UA) Urine Ketones Urine Blood Urine Nitrite Urine Bilirubin Urine Urobilinogen Ur Leukocyte Esterase Urine WBC (Auto) Urine RBC (Auto) U Hyaline Cast (Auto) U Epithel Cells (Auto) Urine Bacteria (Auto) Urine Yeast 08/27/19 08/27/19 07:17 11:21 WBC RBC Hgb Hct MCV MCH MCHC RDW Std Deviation RDW Coeff of Chloe Plt Count MPV Immature Gran % (Auto) Neut % (Auto) Lymph % (Auto) [place] % (Auto) Eos % (Auto) Baso % (Auto) Immature Gran # (Auto) Neut # (Auto) Lymph # (Auto) [place] # (Auto) Eos # (Auto) Baso # (Auto) PT INR APTT PTT Ratio Sodium Potassium Chloride Carbon Dioxide Anion Gap BUN Creatinine Est Cr Clr Drug Dosing Est GFR ( Amer) Est GFR (Non-Af Amer) BUN/Creatinine Ratio Glucose POC Glucose 201 H 181 H Lactate Calcium Phosphorus Magnesium Total Bilirubin AST ALT Alkaline Phosphatase Ammonia Troponin I Total Protein Albumin Globulin Albumin/Globulin Ratio Triglycerides Cholesterol LDL Cholesterol, Calc VLDL Cholesterol, Calc HDL Cholesterol Cholesterol/HDL Ratio Urine Color Urine Appearance Urine pH Ur Specific [place] Urine Protein Urine Glucose (UA) Urine Ketones Urine Blood Urine Nitrite Urine Bilirubin Urine Urobilinogen Ur Leukocyte Esterase Urine WBC (Auto) Urine RBC (Auto) U Hyaline Cast (Auto) U Epithel Cells (Auto) Urine Bacteria (Auto) Urine Yeast PG Care Time/CCT Total # of Minutes Spent Total Time Spent with Patient: Total time spent is greater than 50% in coordination of care (as documented) at patient's floor/unit and/or counseling patient: Coding Level of Care Code 82169 Initial Inpt Care Lvl 3 Diagnoses UTI (urinary tract infection) N39.0 Hematuria presence: without hematuria Urinary tract infection type: site unspecified Sepsis A41.9 (1) UTI (urinary tract infection) Hematuria presence: without hematuria Urinary tract infection type: site unspecified Qualified Code(s): N39.0 - Urinary tract infection, site not specified
--- NOTE | 2019-08-27 16:02 | Hospitalist Progress Note ---
Date of Service August 27, 2019 Assessment & Plan (1) UTI (urinary tract infection): Mrs. Rangel is a 68 yo F with a PMHx of liver cirrhosis and liver cancer who was admitted 08/25/19 for UTI in the post-operative setting of right ureteroscopy, laser lithotripsy and tethered stent placement on 08/22/19 with subsequent removal due to poor tolerability - UA on admission 08/26: + 1 nitrites, 2+ LE, 2+ bacteria; Urine culture growing gram - bacilli and enterococcus - urine culture 07/28/19 grew enterococcus faecium resistant to tetracycline, otherwise sensitive to Cipro penicillins and vancomycin. - SIRS criteria not met for sepsis (WBC not elevated, HR has not exceeded 71, RR has not exceeded 20, temp max 38.0) - postop right ureteroscopy, laser lithotripsy and recent R tethered stent placement on 08/22/19 for R sided ureterolithiasis, s/p removal 08/25/19 due to poor tolerability - A/P CT scan does not suggest ongoing obstruction of R sided ureterolithiasis - continue IV rocephin - urology consulted, appreciate recs (2) Bacteremia: - blood culture 08/26/19 from 2:35 growing alpha strep not pneumoniae - repeat cultures from 08/26/19 drawn ~ 6:00pm growing gram + cocci in chains, awaiting speciation and sensitives - continue IV daptomycin - raises concern for endocarditis; PREDICT day 1 score of 2. TTE neg for vegetations. will consult ID to determine if JE is necessary - source is unknown at this time: urine growing gram neg bacilli. patient has no teeth on exam, so dental source is unlikely. Of note, patient had colonoscopy 11/26/17 that failed to show cancerous or other concerning features. (3) Cirrhosis: - patient with history of cirrhosis - continue home dose rifaxamin, furosemide, and nadolol (4) Increased ammonia level: - level at 91 - may be contributing to patient's AMS - lactulose ordered 20mg PO TID (5) Hypomagnesemia: - Mag level at 1.6. IV repletion ordered - check mag level 08/28 (6) Hypophosphatemia: - phos level at 2.1; supplemented with 15mmol IV - recheck level 08/28 (7) Hypokalemia: - K level at 2.9; repletion with 20 meq IV and 40 meq oral KCl - daily BMP (8) Ureterolithiasis: - right sided non-obstructive stones visualized on 08/26/18 a/p CT can - IV fluids - urology folloing (9) Encephalopathy: - although patient is AAO x3, family reports different from baseline - etiology: metabolic (infectious vs. electrolytes derangements) vs. hepatic (ammonia level 91) vs. multifactorial - head CT neg on 08/26 - treat infection with abx as above, electrolyte replacement as above, lactulose as above (10) Liver cancer: - following with [facility] - Liver US 08/27 showing heterogeneous 3.8 cm lesion of the right hepatic lobe (11) Thrombocytopenia: - level at 57 today - likely secondary to liver disease (12) Diabetes mellitus, type 2: - glycemic consult placed - A1c pending Diet: heart healthy, diabetic diet DVT ppx: chemical contraindicated given thrombocytopenia and elevated INR; bilateral SCDs Code: full Dispo: PCU Supervising Physician Co-Signing Physician Notes I personally examined the patient and verified all [place] points of history and exam, discussed case, and agree with decision making with Dr Liz. feeling better than before. some R lower abdominal pain. no urinary frequency, hesitancy, urgency. she feels like she has to pee, but only because she has to pee right now. Mentally much more clear than before. No other acute complaints. Vitals noted, nad. heent nc at mmm breathing unlabored no accessory muscles good effort. skin no rashes no pallor or icterus. neuro no focal deficits. mild RL / RM abdominal pain to palp no guarding no rebound no rigidity. gram positive bacteremia - concern on endocarditis since community acquired. PREDICT day 1 score of 2 - TTE negative would want to proceed to JE. continue dapto pending ID&S. ?source GI tract vs other - with it being different than urinary bacteria seems less likely related to recent stone/stent/etc. does not have teeth so oral/dental source quite low on ddx. (of note as far as concern on GI source Colonoscopy from November 26, 2017 showed internal hemorrhoids and diverticulosis without any other worrisome findings) (+) urine culture - hard to discern necessity to treat with no symptoms but recent extensive manipulations - continue to treat for now, follow. confusion/altered mental status - seems more likely metabolic encephalopathy from infection rather than hepatic from cirrhosis since ammonia more than 2x what it was yesterday, but mentation much more clear. cirrhosis/hyperammonia - continue to follow mentation in light of high ammonia, but mostly continue lactulose for baseline disease process. pharmacologic DVT proph contraindicated due to low plt and high INR; mechanical OK for now but follow for any local skin breakdown otherwise as above Subjective Reports feeling better than when she came into hospital, but not back to being herself yet. Eating well. Review of Systems Genitourinary: no dysuria, no urinary frequency, no urinary urgency and no flank pain Physical Exam Constitutional: WD/WN, vitals as above Eyes: PERRL, conjunctivae normal, anicteric sclerae wearing glasses ENMT: external ear and nose normal, oropharynx normal not wearing her dentures. no visible sores in mouth Neck: normal visual inspection and trachea midline Respiratory: normal respiratory effort; no respiratory distress, no labored breathing and no cough Auscultation: + wheezes (faint expiratory ); no crackles and no rales Cardiovascular: Rate/Rhythm: regular rate and regular rhythm Heart Sounds: normal S1, normal S2 and + murmur (systolic ejection murmur) Gastrointestinal (Abdomen): Inspection/Auscultation: abdomen normal to inspection and normal bowel sounds; abdomen not distended Percussion/Palpation: + abdomen tender (RLQ) and abdomen soft; no guarding, abdomen not rigid and no hepatosplenomegaly Skin: no rashes, warm and dry Psychiatric: A+Ox3, euthymic affect Results & Data Vital Signs (Past 12 Hours) Vital Signs Temp Pulse Pulse Resp BP Pulse Ox 08/27/19 15:01 37.8 C H 71 19 111/42 L 95 08/27/19 11:16 37.9 C H 70 20 116/42 L 98 08/27/19 08:00 63 08/27/19 07:57 37 C 70 18 115/35 L 93 Resident Activity Tracking Resident Involvement: Resident Care Provided Care Provided: Adult Hospital Medicine (1) UTI (urinary tract infection) Hematuria presence: without hematuria Urinary tract infection type: site unspecified Qualified Code(s): N39.0 - Urinary tract infection, site not specified (2) Cirrhosis Ascites presence: unspecified Hepatic cirrhosis type: unspecified hepatic cirrhosis Qualified Code(s): K74.60 - Unspecified cirrhosis of liver (3) Liver cancer Liver malignancy type: unspecified liver malignancy Qualified Code(s): C22.9 - Malignant neoplasm of liver, not specified as primary or secondary
--- NOTE | 2019-08-27 16:39 | Billing Data ---
Date of Service August 27, 2019 Coding Level of Care Code 28304 Subseq Hosp Care Lvl 3
[2019-08-27] MEDS ORDERED: POTASSIUM PHOS 3 MMOL/1 ML INFUSION IV STA (16:51)
[2019-08-27] MEDS ORDERED: POTASSIUM PHOSPHATE 15 MMOL in SODIUM CHLORIDE 0.9% 250 ML IV ONE (17:30)
--- NOTE | 2019-08-27 18:08 | Electrocardiogram Report ---
Test Reason : Blood Pressure : / mmHG Vent. Rate : 070 BPM Atrial Rate : 070 BPM P-R Int : 154 ms QRS Dur : 098 ms QT Int : 528 ms P-R-T Axes : 000 039 004 degrees QTc Int : 570 ms Sinus rhythm with Premature atrial complexes Nonspecific T wave abnormality Abnormal ECG When compared with ECG of 26-AUG-2019 02:16, Premature atrial complexes are now Present QT has lengthened Confirmed by Clarence Jha ([id number]) on 08/27/2019 6:08:11 PM Referred By: REFERRED SELF Confirmed By:Everton Jha
[2019-08-27] MEDS: ESCITALOPRAM OXALATE 10 MG TAB PO SCH (20:33)
[2019-08-27] MEDS: ATORVASTATIN 20 MG TAB PO SCH (20:33)
[2019-08-27] MEDS: cefTRIAXone SODIUM 2,000 MG in DEXTROSE 5% 50 ML IV SCH (20:34)
[2019-08-27] MEDS: nadoloL 40 MG TAB PO SCH (20:34)
[2019-08-27] MEDS: DAPTOmycin 375 MG in SYRINGE 0 ML IV SCH (20:35)
[2019-08-28 06:16] LABS: Estimated Average Glucose 143 mg/dl; Hemoglobin A1C 6.6 % (4.5-5.6)
[2019-08-28 06:39] LABS: Calcium 7.6 mg/dl (8.5-10.1); Creatinine Clr Calc Pharmacy 53.7 ml/min; Est GFR (African American) 68.2; Est GFR (Non-African American) 58.9; Phosphorus 2.8 mg/dl (2.5-4.9); Potassium 3.6 mmol/L (3.5-5.1)
[2019-08-28 06:41] LABS: Hematocrit (blood only) 25.9 % (37-47); Hemoglobin 8.8 g/dL (12.0-16.0); Mean Corpuscular Hemoglobin 36.1 pg (25-34); Mean Corpuscular Volume 106.1 fL (80-100); RDW Coefficient of Variation 15.8 % (11.5-14.5); RDW Standard Deviation 61.2 fL (36.4-46.3); Red Blood Count 2.44 M/uL (4.2-5.4); White Blood Count 6.73 K/uL (4.8-10.8)
[2019-08-28 06:44] LABS: Mean Platelet Volume 10.8 fL (7.4-10.4); Platelet Count 72 K/uL (130-400)
[2019-08-28 06:59] LABS: Basophils # (auto) 0.02 K/uL (0-0.2); Basophils % (auto) 0.3 %; Eosinophils # (auto) 0.14 K/uL (0-0.5); Eosinophils % (auto) 2.1 %; Immature Granulocytes # (auto) 0.01 K/uL (0.00-0.02); Immature Granulocytes % (auto) 0.1 %; Lymphocytes # (auto) 1.34 K/uL (1.2-3.4); Lymphocytes % (auto) 19.9 %; Monocytes # (auto) 0.72 K/uL (0.11-0.59); Monocytes % (auto) 10.7 %; Neutrophils % (auto) 66.9 %
[2019-08-28] MEDS: INSULIN ASPART 100 UNITS/ML 3 ML PEN SC SCH ×4 (08:23→20:47)
[2019-08-28] MEDS: FOLIC ACID 1 MG TAB PO SCH (08:23)
[2019-08-28] MEDS: GABAPENTIN 300 MG CAP PO SCH ×2 (08:23→20:44)
[2019-08-28] MEDS: RIFAXIMIN 550 MG TABLET PO SCH ×2 (08:23→20:44)
[2019-08-28] MEDS: MAGNESIUM OXIDE 400 MG TAB PO SCH ×2 (08:23→20:44)
[2019-08-28] MEDS: FERROUS SULFATE 325 MG TAB PO SCH ×2 (08:23→17:12)
[2019-08-28] MEDS: PANTOprazole 40 MG TAB PO SCH ×2 (08:24→17:11)
[2019-08-28] MEDS: LACTULOSE SYRUP 20 GM/30 ML UDC PO SCH ×3 (08:24→20:44)
[2019-08-28] MEDS: CHOLECALCIFEROL 1,000 UNITS 25 MCG TAB PO SCH (08:24)
[2019-08-28] MEDS: INSULIN GLARGINE SOLOSTAR 100 UNITS/ML 3 ML PEN SC SCH ×2 (08:24→20:47)
[2019-08-28] MEDS: POTASSIUM CHLORIDE 20 MEQ TABCR PO SCH (08:24)
--- NOTE | 2019-08-28 09:53 | Infectious Disease Consult ---
Date of Consultation August 28, 2019 Assessment & Plan (1) Gram positive sepsis: will continue dapto for now, await final culutre data, supsect gpc in blood will be Enterococcus as well. will repeat blood cultures. If repeat blood cultures + would suggest JE. will change rocephin to ertapnem. will follow. (2) UTI (urinary tract infection): History of Present Illness Attending Physician: Mitchell Bazan DO pt admitted with fevers and change in mental status. recently had a stent removed in urology office. f/c, went to ER was d/c home on amox, then told to return due to + cultures. 08/26 blood cultures at 2:30am and again at 18:20 are growing gpc. urine culture is growing Enterococcus species, final pending and enterobacter. She is currently on dapto and ctx, Enterobacter is resistant to ctx. she had an echo and was negative for veg. no repeat blood cultures to d ate. wbc 6. had fever 38 on 08/26, overnight 37.9, denies any f/c currently. no abd pain, much better, no cp, sob, cough. ID consulted regarding need for JE. Allergies Allergy/AdvReac Type Severity Reaction Status Date / Time methyl salicylate Allergy Mild RASH Verified 08/26/19 02:22 nickel Allergy Mild RASH Verified 08/26/19 02:22 zinc Allergy Mild RASH Verified 08/26/19 02:22 mint Allergy Verified 08/27/19 14:25 diphenhydramine AdvReac Intermediate BURNING Verified 08/26/19 02:22 EYES,DIZZY,BLISTERS Home Medications Home Medications Medication Instructions Recorded Confirmed Type cholecalciferol (vitamin D3) 2,000 unit PO QAM 04/13/18 08/26/19 History gabapentin 300 mg capsule 300 mg PO BID #60 cap 03/01/19 08/26/19 Rx ferrous sulfate 325 mg PO BIDM 04/14/19 08/26/19 History magnesium oxide 400 mg PO DAILY 04/14/19 08/26/19 History lancets 30 gauge ea 04/19/19 08/16/19 History insulin aspart U-100 100 unit/mL See Rx Instructions SUBCUT 04/21/19 08/26/19 Rx (3 mL) subcutaneous pen .COMPLEX #15 ml escitalopram oxalate 10 mg PO HS 06/15/19 08/26/19 History folic acid 1 mg PO DAILY 06/15/19 08/26/19 History nadolol 20 mg PO QPM 06/15/19 08/26/19 History pantoprazole 40 mg PO BIDM 06/15/19 08/26/19 History atorvastatin 20 mg tablet 20 mg PO HS #90 tab 06/26/19 08/26/19 Rx furosemide 20 mg tablet See Rx Instructions .ROUTE 07/11/19 08/26/19 Rx .COMPLEX #60 tablet Xifaxan 550 mg PO BID 07/12/19 08/26/19 History Basaglar KwikPen U-100 Insulin See Rx Instructions .ROUTE 07/24/19 08/26/19 Rx .COMPLEX #15 milliliter lactulose 20 gm PO BID #3000 ml 07/31/19 08/26/19 Rx pen needle, diabetic 32 gauge x #100 ea 08/04/19 08/16/19 Rx " amoxicillin 500 mg PO TID 10 Days #30 cap 08/26/19 Rx Patient History Medical History Anxiety Chronic back pain Cirrhosis FOLLOWS W/ [facility], MELD score 10. COPD (chronic obstructive pulmonary disease) (Chronic) Uses recuse inhaler ~ once/month Depression Diabetes mellitus, type 2 IDDM Esophageal varices Per EGD 11/30/2018: Nonbleeding grade 1 and small (<5 mm) esophageal varices. Hyperlipidemia Kidney stones Liver cancer DX 1-2 MONTHS AGO Migraine Neuropathy Osteoarthritis Pancytopenia (Acute) Poor historian Shortness of breath on exertion Skin cancer of face Sleep apnea PT UNABLE TO CONFIRM, DOES NOT USE ASSISTIVE DEVICE HS Surgical History History of arthroscopy of left shoulder History of arthroscopy of right knee History of bilateral cataract extraction History of carpal tunnel surgery of left wrist History of lithotripsy History of Mohs micrographic surgery for skin cancer History of tonsillectomy and adenoidectomy History of tooth extraction all teeth removed History of total abdominal hysterectomy and bilateral salpingo-oophorectomy S/P ureteral stent placement Status post laser lithotripsy of ureteral calculus Family History Brother Family history of diabetes mellitus Sister Family history of diabetes mellitus Other Family history non-contributory No family history of adverse response to anesthesia Social History Preferred Language: Fijian Communication Ability: Effective Visual Impairment: No Limitations Roadway Engineer Required: No Beliefs That Will Affect Care: None marital status: / Current Living Situation: Family Current Living Situation Comment: With son. Feels Safe at Home: Yes Smoking Status: Former smoker Tobacco Type: cigarettes ; Cigarettes Per Day: 4 PPD ; Second Hand Exposure: No ; Hx Alcohol Use: No Hx Substance Use: No Review of Systems Review of Systems: All systems reviewed & are unremarkable except as noted in HPI & below Physical Exam Constitutional: WD/WN, vitals as above Eyes: PERRL, conjunctivae normal, anicteric sclerae ENMT: external ear and nose normal, oropharynx normal Neck: normal visual inspection Respiratory: normal respiratory effort, lungs clear to auscultation Cardiovascular: RRR, no murmur, no edema Gastrointestinal (Abdomen): Inspection/Auscultation: + abdomen distended Percussion/Palpation: abdomen soft; abdomen nontender, no guarding and abdomen not rigid Musculoskeletal: no cyanosis or clubbing, extremities motor strength 5/5 Skin: no rashes, warm and dry + jaundice Psychiatric: A+Ox3, euthymic affect Results & Data Vital Signs (Past 12 Hours) Vital Signs Temp Pulse Pulse Resp BP BP Pulse Ox 08/28/19 07:09 36.7 C 63 18 116/48 L 94 08/28/19 03:35 37.4 C 64 17 112/34 L 96 08/28/19 00:19 37.0 C 69 17 110/69 94 08/27/19 23:43 70 Laboratory Results Microbiology 08/26/19 18:25 Blood Aerobic Blood Culture - Preliminary No growth in Aerobic bottle after 24 hours. 08/26/19 18:25 Blood Anaerobic Blood Culture - Preliminary Gram positive cocci in chains 08/26/19 18:20 Blood Aerobic Blood Culture - Preliminary Gram positive cocci in chains 08/26/19 18:20 Blood Anaerobic Blood Culture - Preliminary Gram positive cocci in chains PG Care Time/CCT Total # of Minutes Spent Total Time Spent with Patient: Total time spent is greater than 50% in coordination of care (as documented) at patient's floor/unit and/or counseling patient: Coding Level of Care Code 45695 Inpt Consult Level 4 Diagnoses Gram positive sepsis A41.89 UTI (urinary tract infection) N39.0
--- NOTE | 2019-08-28 10:33 | Urology Progress Note ---
Date of Service August 28, 2019 Assessment & Plan (1) Bacteremia: (2) UTI (urinary tract infection): 68 yo F admitted with bacteremia and sepsis, postop right ureteroscopy, laser lithotripsy and recent stent removal. - Subjectively doing better this AM - Clinically improving, afebrile overnight - ID consulted, Ceftriaxone switched to Ertapenem, continue Daptomycin, continue antibiotics per ID - Plan to follow-up with urology outpatient Thank you for allowing us to participate in the acute care of Mrs. Rangel. Please reconsult us with additional questions, concerns or changes in patient status. Subjective Awake, sitting up in bed. Reports feeling better today. Offers no complaints at this time. No abdominal pain or suprapubic pain. Denies f/c/n/v. Voiding spontaneously. No dysuria or hematuria. Cr and WBC are WNL. UC&S with Ente rococcus and Enterobacter. BCx prelim gram positive cocci. On IV Daptomycin and Ceftriaxone. Review of Systems Constitutional: as per Subjective / HPI Gastrointestinal: as per Subjective / HPI Genitourinary: as per Subjective / HPI Physical Exam Constitutional: well developed and well nourished; no acute distress and not ill appearing Respiratory: normal respiratory effort; no respiratory distress Cardiovascular: Extremities: no pedal edema Gastrointestinal (Abdomen): Inspection/Auscultation: abdomen normal to inspection; abdomen not distended Percussion/Palpation: abdomen soft; abdomen nontender and no guarding Neurologic: moves all extremities and awake Psychiatric: Orientation: alert and oriented x 3 Genitourinary: Voiding spontaneously, urine not visualized during exam Results & Data Vital Signs (Past 12 Hours) Vital Signs Temp Pulse Pulse Resp BP BP Pulse Ox 08/28/19 07:09 36.7 C 63 18 116/48 L 94 08/28/19 03:35 37.4 C 64 17 112/34 L 96 08/28/19 00:19 37.0 C 69 17 110/69 94 08/27/19 23:43 70 PG Care Time/CCT Total # of Minutes Spent Total Time Spent with Patient: Total time spent is greater than 50% in coordination of care (as documented) at patient's floor/unit and/or counseling patient: Coding Level of Care Code 86560 Subseq Hosp Care Lvl 2 Diagnoses Bacteremia R78.81 UTI (urinary tract infection) N39.0 Hematuria presence: without hematuria Urinary tract infection type: site unspecified (1) UTI (urinary tract infection) Hematuria presence: without hematuria Urinary tract infection type: site unspecified Qualified Code(s): N39.0 - Urinary tract infection, site not specified
--- NOTE | 2019-08-28 11:17 | Hospitalist Progress Note ---
Date of Service August 28, 2019 Assessment & Plan (1) UTI (urinary tract infection): Mrs. Rangel is a 68 yo F with a PMHx of liver cirrhosis and liver cancer who was admitted 08/25/19 for UTI in the post-operative setting of right ureteroscopy, laser lithotripsy and tethered stent placement on 08/22/19 with subsequent removal due to poor tolerability. Was having some tenderness to palpation bilaterally in the calves today found to have negative bl LE duplex. - UA on admission 08/26: + 1 nitrites, 2+ LE, 2+ bacteria; Urine culture growing gram - bacilli and enterococcus - urine culture 07/28/19 grew enterococcus faecium resistant to tetracycline, otherwise sensitive to Cipro penicillins and vancomycin. - SIRS criteria not met for sepsis (WBC not elevated, HR has not exceeded 71, RR has not exceeded 20, temp max 38.0) - postop right ureteroscopy, laser lithotripsy and recent R tethered stent placement on 08/22/19 for R sided ureterolithiasis, s/p removal 08/25/19 due to poor tolerability - A/P CT scan does not suggest ongoing obstruction of R sided ureterolithiasis - Rocephin changed to Ertapenem per ID - urology consulted, plan to follow up outpatient (2) Bacteremia: - blood culture 08/26/19 from 2:35 growing alpha strep not pneumoniae - repeat cultures from 08/26/19 drawn ~ 6:00pm growing enterococcus faecium sensitive to Amp, Gent, Penicillin, Strep synery, and Vancomycin - continue IV daptomycin - raises concern for endocarditis; PREDICT day 1 score of 2. TTE neg for vegetations. - ID rec was repeat blood cultures and if positive EJ would be indicated - source is unknown at this time: urine growing gram neg bacilli. patient has no teeth on exam, so dental source is unlikely. Of note, patient had colonoscopy 11/26/17 that failed to show cancerous or other concerning features. (3) Cirrhosis: - patient with history of cirrhosis - continue home dose Rifaxamin, Furosemide, and Nadolol (4) Increased ammonia level: - level at 36 downtrending - may be contributing to patient's AMS - lactulose ordered 20mg PO TID (5) Hypomagnesemia: - Mag level at 2 IV - continue to monitor (6) Hypophosphatemia: - phos level at 2.8 - continue to follow (7) Hypokalemia: - K level at 3.6 - daily BMP (8) Ureterolithiasis: - right sided non-obstructive stones visualized on 08/26/18 a/p CT can - IV fluids - urology folloing (9) Encephalopathy: - although patient is AAO x3, family reports different from baseline - etiology: metabolic (infectious vs. electrolytes derangements) vs. hepatic (ammonia level 91) vs. multifactorial - head CT neg on 08/26 - treat infection with abx as above, electrolyte replacement as above, lactulose as above (10) Liver cancer: - following with [email or web address] - Liver US 08/27 showing heterogeneous 3.8 cm lesion of the right hepatic lobe (11) Thrombocytopenia: - level at 72 uptrending today - likely secondary to liver disease (12) Diabetes mellitus, type 2: - glycemic consult placed - A1c 6.6 Diet: heart healthy, diabetic diet DVT ppx: chemical contraindicated given thrombocytopenia and elevated INR; bilateral SCDs Code: full Dispo: PCU (13) Bilateral calf pain: - BL venous US showed no DVT Supervising Physician Co-Signing Physician Notes I personally examined the patient and verified all [place]ena points of history and exam, discussed case, and agree with decision making with the resident physician. I agree with the impression and plan as noted above. Upon our examination just prior to noon, the patient was eating her lunch. She had no complaints. gram positive bacteremia Urinary tract infection continue daptomycin and ertapenem Repeat blood cultures ordered. Appreciate infectious disease input. Metabolic encephalopathy secondary infection confusion/altered mental status Her confusion and mental status was likely secondary to infection, as her ammonia was higher yesterday than before but her mentation had improved. Continue to monitor. cirrhosis/hyperammonia Follow clinically Continue lactulose Subjective Telma Rangel is doing well and states that things have improved for her over her hospitalization. Her only question was when she may be able to go home. I discussed with her that we are continuing to monitor her given her infection. She did have 3/10 numbness on her right flank and abdomen that has improved but feels "numb". Review of Systems Constitutional: no fever and no chills Respiratory: no cough and no sputum production denies shortness of breath Cardiovascular: no chest pain Additional Comments: denies palpiations Gastrointestinal: no nausea and no vomiting Genitourinary: no dysuria, no urinary frequency and no urinary urgency Neurologic: no headache(s) Physical Exam Constitutional: WD/WN, vitals as above ENMT: external ear and nose normal, oropharynx normal edentulous Neck: trachea midline, no thyromegaly Respiratory: normal respiratory effort, lungs clear to auscultation Cardiovascular: RRR, no murmur, no edema Extremities: + calf tenderness (right sided calf tenderness ); no edema Gastrointestinal (Abdomen): Inspection/Auscultation: abdomen not distended Percussion/Palpation: no guarding and abdomen not rigid Right upper and lower quadrant, and right flank tender to palpation. Musculoskeletal: SCD's not in place Skin: no rashes, warm and dry Results & Data Vital Signs (Past 12 Hours) Vital Signs Temp Pulse Pulse Resp BP BP Pulse Ox 08/28/19 10:54 36.8 C 62 18 110/41 L 97 08/28/19 07:09 36.7 C 63 18 116/48 L 94 08/28/19 03:35 37.4 C 64 17 112/34 L 96 08/28/19 00:19 37.0 C 69 17 110/69 94 08/27/19 23:43 70 Resident Activity Tracking Resident Involvement: Resident Care Provided Care Provided: Adult Hospital Medicine (1) UTI (urinary tract infection) Hematuria presence: without hematuria Urinary tract infection type: site unspecified Qualified Code(s): N39.0 - Urinary tract infection, site not specified (2) Liver cancer Liver malignancy type: unspecified liver malignancy Qualified Code(s): C22.9 - Malignant neoplasm of liver, not specified as primary or secondary (3) Cirrhosis Ascites presence: unspecified Hepatic cirrhosis type: unspecified hepatic cirrhosis Qualified Code(s): K74.60 - Unspecified cirrhosis of liver
[2019-08-28] MEDS: ERTAPENEM SODIUM 1,000 MG in SODIUM CHLORIDE 0.9% 50 ML IV SCH (11:33)
--- NOTE | 2019-08-28 12:39 | Pharmacy Report ---
Pharmacy Glycemic Short Note 2 - Date of Service August 28, 2019 - Glycemic Short BSG Results (Last 24 hours): 08/27/19 08/27/19 08/28/19 16:00 20:02 05:44 Glucose 81 POC Glucose 157 H 94 08/28/19 08/28/19 07:12 10:57 Glucose POC Glucose 93 166 H OUTPATIENT ANTIDIABETIC REGIMEN: * Insulin Glargine 30-40 units BID * Novolog per sliding scale * A1c = 8.8% 06/17/19 ASSESSMENT: * BSGs well controlled over last 24 hrs * Fasting BSG 81-93 this AM with 40 units basal insulin on board - will taper back basal doses * Post-prandial BSGs well controlled yesterday, however these BSGs consistently dropped with each subsequent dose - perhaps a slightly lesser dose is needed PLAN FOR INPATIENT GLYCEMIC CONTROL: * Basal insulin (dose reduction) * Lantus SQ BID per scale * 10units if BSG less than 110 * 15units if BSG 110-180 * 20units if BSG above 180 * Bolus insulin (dose reduction) * NovoLog per scale ACHS or Q6hrs while NPO * Goal Range: Low 110 mg/dL - High 150 mg/dL * Correction Factor: 25 mg/dL/unit * Nutritional / Prandial insulin per carb ratio of 1 unit per 3.5 grams CHO consumed (will utilize 1:4 with breakfast and lunch given BSGs below goal) PLAN FOR DISCHARGE: * to be determined
--- NOTE | 2019-08-28 14:20 | Ultrasound Report ---
BILATERAL LOWER EXTREMITY VENOUS DOPPLER CLINICAL HISTORY: Pain to palpation bilateral calf COMPARISON STUDY: Bilateral lower extremity venous Doppler ultrasound September 18, 2017. TECHNIQUE: Sonography of the deep venous system of the bilateral lower extremities was performed. Co mpression and augmentation were evaluated. FINDINGS: The bilateral common femoral, superficial femoral and popliteal veins were compressible. A ugmentation was normal. Flow was shown within the deep calf vessels. IMPRESSION: No evidence of deep venous thrombus within the bilateral lower extremities. ACT 112: Negative or not required by law. Electronically signed by: Donovan Mcdonald M.D. 08/28/2019 2:19 PM
[2019-08-28] MEDS: DAPTOmycin 375 MG in SYRINGE 0 ML IV SCH (19:50)
[2019-08-28] MEDS ORDERED: TRAMADOL HCL 50 MG TABLET PO PRN (20:03)
[2019-08-28] MEDS: nadoloL 40 MG TAB PO SCH (20:41)
[2019-08-28] MEDS: ESCITALOPRAM OXALATE 10 MG TAB PO SCH (20:44)
[2019-08-28] MEDS: ATORVASTATIN 20 MG TAB PO SCH (20:44)
[2019-08-29 05:56] LABS: Hematocrit (blood only) 24.3 % (37-47); Hemoglobin 8.2 g/dL (12.0-16.0); Mean Corpuscular Hgb Conc 33.7 g/dL (32-36); Mean Corpuscular Volume 106.6 fL (80-100); RDW Coefficient of Variation 15.8 % (11.5-14.5); RDW Standard Deviation 61.1 fL (36.4-46.3); Red Blood Count 2.28 M/uL (4.2-5.4)
[2019-08-29 05:57] LABS: Mean Platelet Volume 10.6 fL (7.4-10.4); Platelet Count 67 K/uL (130-400)
[2019-08-29 06:17] LABS: Basophils # (auto) 0.01 K/uL (0-0.2); Basophils % (auto) 0.2 %; Eosinophils # (auto) 0.12 K/uL (0-0.5); Eosinophils % (auto) 2.7 %; Immature Granulocytes # (auto) 0.01 K/uL (0.00-0.02); Immature Granulocytes % (auto) 0.2 %; Lymphocytes # (auto) 1.11 K/uL (1.2-3.4); Lymphocytes % (auto) 24.7 %; Monocytes # (auto) 0.44 K/uL (0.11-0.59); Monocytes % (auto) 9.8 %; Neutrophils # (auto) 2.81 K/uL (1.4-6.5); Neutrophils % (auto) 62.4 %
[2019-08-29 07:22] LABS: Albumin Level 1.7 gm/dl (3.4-5.0); BUN Creatinine Ratio 21.5 (10-20); Calcium 7.7 mg/dl (8.5-10.1); Creatinine Clr Calc Pharmacy 55.9 ml/min; Est GFR (African American) 71.7; Est GFR (Non-African American) 61.9; Potassium 4.1 mmol/L (3.5-5.1)
[2019-08-29 07:24] LABS: Albumin Globulin Ratio 0.5 (0.9-2); Bilirubin,Total 0.9 mg/dl (0.2-1); Globulin 3.6 gm/dl (2.5-4.0); Total Protein 5.3 gm/dl (6.4-8.2)
[2019-08-29] MEDS: GABAPENTIN 300 MG CAP PO SCH ×2 (08:29→20:28)
[2019-08-29] MEDS: RIFAXIMIN 550 MG TABLET PO SCH ×2 (08:34→20:29)
[2019-08-29] MEDS: MAGNESIUM OXIDE 400 MG TAB PO SCH ×2 (08:34→20:29)
[2019-08-29] MEDS: CHOLECALCIFEROL 1,000 UNITS 25 MCG TAB PO SCH (08:34)
[2019-08-29] MEDS: FERROUS SULFATE 325 MG TAB PO SCH ×2 (08:35→16:44)
[2019-08-29] MEDS: POTASSIUM CHLORIDE 20 MEQ TABCR PO SCH (08:35)
[2019-08-29] MEDS: PANTOprazole 40 MG TAB PO SCH ×2 (08:35→16:44)
[2019-08-29] MEDS: FOLIC ACID 1 MG TAB PO SCH (08:35)
[2019-08-29] MEDS: LACTULOSE SYRUP 20 GM/30 ML UDC PO SCH ×3 (08:35→20:28)
[2019-08-29] MEDS: INSULIN ASPART 100 UNITS/ML 3 ML PEN SC SCH ×4 (08:36→20:38)
[2019-08-29] MEDS: INSULIN GLARGINE SOLOSTAR 100 UNITS/ML 3 ML PEN SC SCH ×2 (08:38→20:38)
--- NOTE | 2019-08-29 10:16 | Hospitalist Progress Note ---
Date of Service August 29, 2019 Assessment & Plan (1) UTI (urinary tract infection): Mrs. Rangel is a 68 yo F with a PMHx of liver cirrhosis and liver cancer who was admitted 08/25/19 for UTI in the post-operative setting of right ureteroscopy, laser lithotripsy and tethered stent placement on 08/22/19 with subsequent removal due to poor tolerability. - UA on admission 08/26: + 1 nitrites, 2+ LE, 2+ bacteria; Urine culture growing gram - bacilli and enterococcus - urine culture 07/28/19 grew enterococcus faecium resistant to tetracycline, otherwise sensitive to Cipro penicillins and vancomycin. - SIRS criteria not met for sepsis (WBC not elevated, HR has not exceeded 71, RR has not exceeded 20, temp max 38.0) - postop right ureteroscopy, laser lithotripsy and recent R tethered stent placement on 08/22/19 for R sided ureterolithiasis, s/p removal 08/25/19 due to poor tolerability - A/P CT scan does not suggest ongoing obstruction of R sided ureterolithiasis - continue Ertapenem per ID - urology consulted, plan to follow up outpatient (2) Bacteremia: - blood culture 08/26/19 from 2:35 growing alpha strep not pneumoniae - repeat cultures from 08/26/19 drawn ~ 6:00pm growing enterococcus faecium sensitive to Amp, Gent, Penicillin, Strep synery, and Vancomycin - continue IV Daptomycin - raises concern for endocarditis; PREDICT day 1 score of 2. TTE neg for vegetations. - repeat blood cultures negative at 24 hours - Ordered JE and will follow up with ID when results return - NPO after midnight for JE (3) Cirrhosis: - patient with history of cirrhosis - continue home dose Rifaxamin, Furosemide, and Nadolol (4) Increased ammonia level: - level at 46 downtrending - may be contributing to patient's AMS, mentation has improved - lactulose ordered 20mg PO TID (5) Hypomagnesemia: - continue to monitor (6) Hypophosphatemia: - continue to follow (7) Hypokalemia: - K level at 4.1 - daily BMP (8) Ureterolithiasis: - right sided non-obstructive stones visualized on 08/26/18 a/p CT can - IV fluids - urology following (9) Encephalopathy: - although patient is AAO x3, family reports different from baseline, appears to be improving - etiology: metabolic (infectious vs. electrolytes derangements) vs. hepatic (ammonia level 91) vs. multifactorial - head CT neg on 08/26 - treat infection with abx as above, electrolyte replacement as above, lactulose as above (10) Liver cancer: - following with [facility] - Liver US 08/27 showing heterogeneous 3.8 cm lesion of the right hepatic lobe (11) Thrombocytopenia: - level at 67 relatively stable, continue to monitor - likely secondary to liver disease (12) Diabetes mellitus, type 2: - glycemic consult placed - A1c 6.6 Diet: heart healthy, diabetic diet DVT ppx: chemical contraindicated given thrombocytopenia and elevated INR; bilateral SCDs Code: full Dispo: PCU (13) Bilateral calf pain: - BL venous US showed no DVT Supervising Physician Co-Signing Physician Notes I personally examined the patient and verified all [place]ena points of history and exam, discussed case, and agree with decision making with the resident philippe tamayo. I agree with the impression and plan as noted above. Upon our examination late afternoon, the patient was resting without complaints. She had no complaints. gram positive bacteremia Urinary tract infection Discussed options with patient; recommend and she is agreeable to JE to exclude endocarditis. continue daptomycin and ertapenem Repeat blood cultures pending. Appreciate infectious disease input. Metabolic encephalopathy secondary infection confusion/altered mental status Essentially resolved Continue to monitor. cirrhosis/hyperammonia Follow clinically Continue lactulose Subjective Required Tramadol for 3/10 back pain that has improved. She asked about how the infection got into her blood and we discussed that it was likely from the urinary tract infection that she had. No other questions this morning. She was overall feeling well and I discussed with her that we are waiting on her blood cultures to decide if we will need to do another ECHO of her heart. Review of Systems Constitutional: no fever and no chills Respiratory: + cough (not often or recently) and + sputum production (not often or recently) denies shortness of breath Cardiovascular: + palpitations (she states that she is having irregular heart beats and this is common for her); no chest pain Additional Comments: denies palpiations Gastrointestinal: no nausea and no vomiting Genitourinary: no dysuria, no difficulty urinating and no urinary frequency Neurologic: no headache(s) Physical Exam Constitutional: WD/WN, vitals as above ENMT: external ear and nose normal, oropharynx normal Neck: trachea midline, no thyromegaly Respiratory: normal respiratory effort, lungs clear to auscultation Cardiovascular: RRR, no murmur, no edema Extremities: + calf tenderness (right sided calf tenderness, no erythema or cords appreciated); no edema Gastrointestinal (Abdomen): Inspection/Auscultation: abdomen not distended Percussion/Palpation: no guarding and abdomen not rigid diffuse abdominal pain with palpation Skin: no rashes, warm and dry Results & Data Vital Signs (Past 12 Hours) Vital Signs Temp Pulse Pulse Resp BP Pulse Ox 08/29/19 07:04 36.7 C 67 18 128/47 L 96 08/29/19 04:06 36.9 C 64 18 122/44 L 98 08/29/19 00:14 124/40 L 08/28/19 23:54 37.4 C 82 20 110/31 L 99 Resident Activity Tracking Resident Involvement: Resident Care Provided Care Provided: Adult Hospital Medicine (1) UTI (urinary tract infection) Hematuria presence: without hematuria Urinary tract infection type: site unspecified Qualified Code(s): N39.0 - Urinary tract infection, site not specified (2) Liver cancer Liver malignancy type: unspecified liver malignancy Qualified Code(s): C22.9 - Malignant neoplasm of liver, not specified as primary or secondary (3) Cirrhosis Ascites presence: unspecified Hepatic cirrhosis type: unspecified hepatic cirrhosis Qualified Code(s): K74.60 - Unspecified cirrhosis of liver
--- NOTE | 2019-08-29 10:54 | Pharmacy Report ---
Pharmacy Glycemic Short Note 2 - Date of Service August 29, 2019 - Glycemic Short BSG Results (Last 24 hours): 08/28/19 08/28/19 08/28/19 10:57 16:17 20:14 Glucose POC Glucose 166 H 156 H 110 H 08/29/19 08/29/19 05:42 07:05 Glucose 114 H POC Glucose 118 H OUTPATIENT ANTIDIABETIC REGIMEN: * Insulin Glargine 30-40 units BID * Novolog per sliding scale * A1c = 8.8% 06/17/19 ASSESSMENT: 08/29 * Fasting BSG at goal this AM, FBS = 118, with 25 units basal insulin on board * Post-prandial BSGs well controlled yesterday using CR 4 and CR 3.5 - will continue CR 3.5 today 08/28 * BSGs well controlled over last 24 hrs * Fasting BSG 81-93 this AM with 40 units basal insulin on board - will taper back basal doses * Post-prandial BSGs well controlled yesterday, however these BSGs consistently dropped with each subsequent dose - perhaps a slightly lesser dose is needed PLAN FOR INPATIENT GLYCEMIC CONTROL: * Basal insulin (no change) * Lantus SQ BID per scale * 10units if BSG less than 110 * 15units if BSG 110-180 * 20units if BSG above 180 * Bolus insulin (no change) * NovoLog per scale ACHS or Q6hrs while NPO * Goal Range: Low 110 mg/dL - High 150 mg/dL * Correction Factor: 25 mg/dL/unit * Nutritional / Prandial insulin per carb ratio of 1 unit per 3.5 grams CHO consumed PLAN FOR DISCHARGE: * to be determined
[2019-08-29] MEDS: ERTAPENEM SODIUM 1,000 MG in SODIUM CHLORIDE 0.9% 50 ML IV SCH (11:11)
--- NOTE | 2019-08-29 12:42 | Infectious Disease Progress Nt ---
Date of Service August 29, 2019 Assessment & Plan (1) Gram positive sepsis: will continue dapto for now, await final culutre data, will follow repeat blood cultures. If repeat blood cultures + would suggest JE, negative to date. . will change rocephin to ertapnem. will follow. (2) UTI (urinary tract infection): Subjective blood cultures growing E. faecium, repeat negative at 24 hours. remains on abx, tolerating well. afebrile. wbc 4. Results & Data Vital Signs (Past 12 Hours) Vital Signs Temp Pulse Pulse Resp BP Pulse Ox 08/29/19 07:04 36.7 C 67 18 128/47 L 96 08/29/19 04:06 36.9 C 64 18 122/44 L 98 Laboratory Results Microbiology 08/28/19 10:47 Blood Aerobic Blood Culture - Preliminary No growth in Aerobic bottle after 24 hours. 08/28/19 10:47 Blood Anaerobic Blood Culture - Preliminary No growth in Anaerobic bottle after 24 hours. 08/28/19 10:32 Blood Aerobic Blood Culture - Preliminary No growth in Aerobic bottle after 24 hours. 08/28/19 10:32 Blood Anaerobic Blood Culture - Preliminary No growth in Anaerobic bottle after 24 hours. 08/26/19 18:25 Blood Aerobic Blood Culture - Preliminary No growth in Aerobic bottle after 48 hours. 08/26/19 18:25 Blood Anaerobic Blood Culture - Preliminary Enterococcus faecium 08/26/19 18:20 Blood Aerobic Blood Culture - Final Enterococcus faecium 08/26/19 18:20 Blood Anaerobic Blood Culture - Final Enterococcus faecium PG Care Time/CCT Total # of Minutes Spent Total Time Spent with Patient: Total time spent is greater than 50% in coordination of care (as documented) at patient's floor/unit and/or counseling patient: Coding Level of Care Code 78002 Subseq Hosp Care Lvl 1 Diagnoses Gram positive sepsis A41.89 UTI (urinary tract infection) N39.0
--- NOTE | 2019-08-29 17:32 | Anesthesiology Consultation ---
Date of Service August 29, 2019 Assessment & Plan Chart Review Chart Review: Acceptable Risk for Surgery and Patient NOT seen in Pre Admission Testing Consults Requested none ASA ASA4 Proposed Anesthesia Anesthesia Type: General History Height/Weight Height: 5 ft 4 in Weight: 74.7 kg Allergies Allergy/AdvReac Type Severity Reaction Status Date / Time methyl salicylate Allergy Mild RASH Verified 08/26/19 02:22 nickel Allergy Mild RASH Verified 08/26/19 02:22 zinc Allergy Mild RASH Verified 08/26/19 02:22 mint Allergy Verified 08/27/19 14:25 diphenhydramine AdvReac Intermediate BURNING Verified 08/26/19 02:22 EYES,DIZZY,BLISTERS Medications Home Medications Medication Instructions Recorded Confirmed Last Taken cholecalciferol (vitamin D3) 2,000 unit PO QAM 04/13/18 08/26/19 08/21/19 07:00 gabapentin 300 mg capsule 300 mg PO BID #60 cap 03/01/19 08/26/19 08/21/19 17:00 ferrous sulfate 325 mg PO BIDM 04/14/19 08/26/19 08/21/19 17:00 magnesium oxide 400 mg PO DAILY 04/14/19 08/26/19 08/21/19 07:00 lancets 30 gauge ea 04/19/19 08/16/19 Unknown insulin aspart U-100 100 unit/mL See Rx Instructions SUBCUT 04/21/19 08/26/19 08/21/19 17:00 (3 mL) subcutaneous pen .COMPLEX #15 ml escitalopram oxalate 10 mg PO HS 06/15/19 08/26/19 08/21/19 21:00 folic acid 1 mg PO DAILY 06/15/19 08/26/19 08/21/19 07:00 nadolol 20 mg PO QPM 06/15/19 08/26/19 08/21/19 17:00 pantoprazole 40 mg PO BIDM 06/15/19 08/26/19 08/21/19 17:00 atorvastatin 20 mg tablet 20 mg PO HS #90 tab 06/26/19 08/26/19 08/21/19 21:00 furosemide 20 mg tablet See Rx Instructions .ROUTE 07/11/19 08/26/19 08/21/19 07:00 .COMPLEX #60 tablet Xifaxan 550 mg PO BID 07/12/19 08/26/1920 21:00 Basaglar KwikPen U-100 Insulin See Rx Instructions .ROUTE 07/24/19 08/26/19 08/21/19 17:00 .COMPLEX #15 milliliter lactulose 20 gm PO BID #3000 ml 07/31/19 08/26/19 08/21/19 17:00 pen needle, diabetic 32 gauge x #100 ea 08/04/19 08/16/19 Unknown " amoxicillin 500 mg PO TID 10 Days #30 cap 08/26/19 Unknown Active Medications Generic Name Dose Route Start Last Admin Trade Name Freq PRN Reason Stop Dose Admin Atorvastatin Calcium 20 mg 08/26/19 21:00 08/28/19 20:44 Lipitor PO 09/25/19 20:59 20 mg HS MELVI Administration Escitalopram Oxalate 10 mg 08/26/19 21:00 08/28/19 20:44 Lexapro Tab PO 09/25/19 20:59 10 mg HS MELVI Administration Ferrous Sulfate 325 mg 08/27/19 08:00 08/29/19 16:44 Feosol PO 09/26/19 07:59 325 mg BIDM MELVI Administration Folic Acid 1 mg 08/27/19 09:00 08/29/19 08:35 Folvite PO 09/26/19 08:59 1 mg DAILY MELVI Administration Gabapentin 300 mg 08/26/19 21:00 08/29/19 08:29 Neurontin PO 09/25/19 20:59 300 mg BID MELVI Administration Daptomycin 375 mg/ Syringe 7.5 mls @ 3.75 mls/min 08/27/19 20:00 08/28/19 19:50 IV 09/06/19 19:59 3.75 mls/min DAILY@2000 MELVI Administration Protocol Ertapenem 1,000 mg/ Sodium 60 mls @ 100 mls/hr 08/28/19 11:00 08/29/19 11:50 Chloride IV 09/07/19 10:59 Infused Q24H MELVI Infusion Protocol Insulin Aspart 0 units 08/26/19 21:00 08/29/19 16:43 Novolog Flexpen SC 09/25/19 20:59 12 units ACHS MELVI Administration Insulin Glargine 0 units 08/27/19 09:00 08/29/19 08:38 Lantus Solostar Pen SC 09/26/19 08:59 15 units BID MELVI Administration Protocol Lactulose 20 gm 08/26/19 21:00 08/29/19 14:34 Chronulac PO 09/25/19 20:59 20 gm TID MELVI Administration Magnesium Oxide 400 mg 08/27/19 09:00 08/29/19 08:34 Mag-Ox PO 09/26/19 08:59 400 mg BID MELVI Administration Nadolol 20 mg 08/26/19 21:00 08/28/19 20:41 Corgard PO 09/25/19 20:59 Not Given QPM MELVI Pantoprazole Sodium 40 mg 08/27/19 08:00 08/29/19 16:44 Protonix PO 09/26/19 07:59 40 mg BIDM MELVI Administration Potassium Chloride 40 meq 08/27/19 09:00 08/29/19 08:35 Klor-Con M20 PO 09/26/19 08:59 40 meq QAM MELVI Administration Rifaximin 550 mg 08/26/19 21:00 08/29/19 08:34 Xifaxan PO 09/25/19 20:59 550 mg BID MELVI Administration Vitamin D 2,000 units 08/27/19 09:00 08/29/19 08:34 Vitamin D3 PO 09/26/19 08:59 2,000 units QAM MELVI Administration Past Medical History Medical History Anxiety Chronic back pain Cirrhosis FOLLOWS W/ [facility], MELD score 10. COPD (chronic obstructive pulmonary disease) (Chronic) Uses recuse inhaler ~ once/month Depression Diabetes mellitus, type 2 IDDM Esophageal varices Per EGD 11/30/2018: Nonbleeding grade 1 and small (<5 mm) esophageal varices. Hyperlipidemia Kidney stones Liver cancer DX 1-2 MONTHS AGO Migraine Neuropathy Osteoarthritis Pancytopenia (Acute) Poor historian Shortness of breath on exertion Skin cancer of face Sleep apnea PT UNABLE TO CONFIRM, DOES NOT USE ASSISTIVE DEVICE HS Exercise / Class Metabolic Activity III < 4 Walking/Shop/Light housework Past Family History Family History Brother Family history of diabetes mellitus Sister Family history of diabetes mellitus Other Family history non-contributory No family history of adverse response to anesthesia Past Surgical History Surgical History History of arthroscopy of left shoulder History of arthroscopy of right knee History of bilateral cataract extraction History of carpal tunnel surgery of left wrist History of lithotripsy History of Mohs micrographic surgery for skin cancer History of tonsillectomy and adenoidectomy History of tooth extraction all teeth removed History of total abdominal hysterectomy and bilateral salpingo-oophorectomy S/P ureteral stent placement Status post laser lithotripsy of ureteral calculus Past Anesthesia History No Hx of Anesthesia Complications and No Family Hx of Anesthesia Complications History of PONV No Hx of PONV and No Hx of Motion Sickness Social History Smoking Status: Former smoker tobacco type: cigarettes Smoking cigarettes per day: 4 PPD Hx Alcohol Use: No Hx Substance Use: No substance use type: does not use Physical Exam Vital Signs Last Vital Signs Temp 36.7 C 08/29/19 15:13 Pulse 60 08/29/19 15:13 Resp 18 08/29/19 15:13 BP 115/42 L 08/29/19 15:13 Pulse Ox 98 08/29/19 15:13 Testing Laboratory Results 08/29/19 05:38 08/29/19 05:42 PT 14.3 Seconds (9.0-12.0) H 08/27/19 05:29 INR 1.4 (0.9-1.1) H 08/27/19 05:29 APTT 30.1 Seconds (21.0-31.0) 08/26/19 18:25 Hemoglobin A1c 6.6 % (4.5-5.6) H 08/27/19 05:29 Urine Color Dark Yellow 08/27/19 03:53 Urine Appearance Cloudy (Clear) A 08/27/19 03:53 Urine pH 5.5 (4.5-7.5) 08/27/19 03:53 Ur Specific [place] 1.017 (1.000-1.030) 08/27/19 03:53 Urine Protein 1+ (Negative) H 08/27/19 03:53 Urine Glucose (UA) Negative (Negative) 08/27/19 03:53 Urine Ketones Negative (Negative) 08/27/19 03:53 Urine Nitrite Positive (Negative) A 08/27/19 03:53 Ur Leukocyte Esterase 2+ (Negative) H 08/27/19 03:53 Urine WBC (Auto) >30 /hpf (0-5) H 08/27/19 03:53 Urine RBC (Auto) 10-30 /hpf (0-4) H 08/27/19 03:53 U Hyaline Cast (Auto) 1-5 /lpf (0-5) 08/27/19 03:53 U Epithel Cells (Auto) 20-30 /lpf (0-5) H 08/27/19 03:53 Urine Bacteria (Auto) 2+ (Negative) H 08/27/19 03:53 08/28/19 10:47 Aerobic Blood Culture - Preliminary Blood No growth in Aerobic bottle after 24 hours. Anaerobic Blood Culture - Preliminary No growth in Anaerobic bottle after 24 hours. 08/28/19 10:32 Aerobic Blood Culture - Preliminary Blood No growth in Aerobic bottle after 24 hours. Anaerobic Blood Culture - Preliminary No growth in Anaerobic bottle after 24 hours. 08/26/19 18:25 Aerobic Blood Culture - Preliminary Blood No growth in Aerobic bottle after 48 hours. Anaerobic Blood Culture - Preliminary Enterococcus faecium 08/26/19 18:20 Aerobic Blood Culture - Final Blood Enterococcus faecium Anaerobic Blood Culture - Final Enterococcus faecium 08/29/19 08/29/19 08/29/19 16:28 11:11 07:05 POC Glucose 181 H 259 H 118 H Electrocardiogram Date: 08/26/19 Findings: + NSR @ (SR at 70 w/PAC's;NS T wave Abnl) Chest X-Ray Date: 08/26/19 Findings: + NAD, + cardiomegaly and + atherosclerosis of thoracic aorta Echocardiogram Date: 08/27/19 EF: 55 LV Function: normal RWMA: + none
[2019-08-29] MEDS: ATORVASTATIN 20 MG TAB PO SCH (20:29)
[2019-08-29] MEDS: ESCITALOPRAM OXALATE 10 MG TAB PO SCH (20:29)
[2019-08-29] MEDS: nadoloL 40 MG TAB PO SCH (20:29)
[2019-08-29] MEDS: DAPTOmycin 375 MG in SYRINGE 0 ML IV SCH (20:41)
[2019-08-30 05:54] LABS: Hematocrit (blood only) 24.9 % (37-47); Hemoglobin 8.3 g/dL (12.0-16.0); Mean Corpuscular Hemoglobin 36.1 pg (25-34); Mean Corpuscular Hgb Conc 33.3 g/dL (32-36); Mean Corpuscular Volume 108.3 fL (80-100); RDW Coefficient of Variation 15.7 % (11.5-14.5); White Blood Count 4.69 K/uL (4.8-10.8)
[2019-08-30 05:56] LABS: Mean Platelet Volume 10.4 fL (7.4-10.4); Platelet Count 68 K/uL (130-400)
[2019-08-30 06:23] LABS: Basophils # (auto) 0.02 K/uL (0-0.2); Basophils % (auto) 0.4 %; Eosinophils # (auto) 0.09 K/uL (0-0.5); Eosinophils % (auto) 1.9 %; Immature Granulocytes # (auto) 0.02 K/uL (0.00-0.02); Immature Granulocytes % (auto) 0.4 %; Lymphocytes # (auto) 1.23 K/uL (1.2-3.4); Lymphocytes % (auto) 26.2 %; Monocytes # (auto) 0.51 K/uL (0.11-0.59); Monocytes % (auto) 10.9 %; Neutrophils # (auto) 2.82 K/uL (1.4-6.5); Neutrophils % (auto) 60.2 %; Toxic Vacuolation Occasional
[2019-08-30 06:30] LABS: BUN Creatinine Ratio 23.2 (10-20); Calcium 7.7 mg/dl (8.5-10.1); Creatinine Clr Calc Pharmacy 56.5 ml/min; Est GFR (African American) 72.7; Est GFR (Non-African American) 62.7; Potassium 4.4 mmol/L (3.5-5.1)
[2019-08-30] MEDS: INSULIN ASPART 100 UNITS/ML 3 ML PEN SC SCH ×4 (08:50→20:34)
[2019-08-30] MEDS: INSULIN GLARGINE SOLOSTAR 100 UNITS/ML 3 ML PEN SC SCH ×2 (09:00→20:35)
[2019-08-30] MEDS: FERROUS SULFATE 325 MG TAB PO SCH ×2 (09:00→17:22)
[2019-08-30] MEDS: PANTOprazole 40 MG TAB PO SCH ×2 (09:00→17:22)
[2019-08-30] MEDS: LACTULOSE SYRUP 20 GM/30 ML UDC PO SCH ×3 (09:00→20:24)
[2019-08-30] MEDS ORDERED: fentaNYL citrate 100 MCG/2 ML VIAL ONE ×2 (10:39)
[2019-08-30] MEDS ORDERED: ATROPINE SULFATE 0.1 MG/ML 10ML SYR IV ONE (10:40)
[2019-08-30] MEDS ORDERED: MIDAZOLAM HCL 1 MG/ML 2ML VIAL ONE ×2 (10:40)
--- NOTE | 2019-08-30 10:47 | Pre Anesthesia Assessment ---
Date of Service August 30, 2019 Pre Sedation Assessment Vital Signs Temp Pulse Resp BP BP Pulse Ox 08/30/19 10:20 57 L 18 107/42 L 98 08/30/19 08:01 36.8 C 59 L 18 110/43 L 98 08/30/19 03:17 36.9 C 62 20 110/40 L 98 08/29/19 23:24 37.5 C 70 20 114/37 L 99 08/29/19 19:09 37.6 C H 68 18 133/45 L 98 08/29/19 15:13 36.7 C 60 18 115/42 L 98 08/29/19 11:11 36.8 C 66 18 104/44 L 100 Cardiovascular + tachycardic Respiratory + respiratory effort normal Pre-Sedation Airway Assessment Smoking Status: Former smoker Hx Sleep Apnea: No Hx Difficult Intubation: No Short, Thick Neck: No Thyromental Distance: > or= 3.5 Finger Breadths Oral Cavity: + Dentures Mallampati Class: II ASA: ASA3 NPO Status Date of Last Intake of Fluids: 08/29/19 Time of Last Intake of Fluids: 22:00 Date of Last Intake of Solid Food: 08/29/19 Time of Last Intake of Solid Foods: 22:00 Procedure Planning Contraindications for Sedation: none Current Medications Reviewed: Yes Notes The planned sedation has been discussed with the patient. Informed Consent was obtained. I have identified the patient, determined the appropriateness of sedation and have assessed the patient immediately prior to the procedure. All medicine(s) and interventions are by my order.
--- NOTE | 2019-08-30 10:54 | Pharmacy Report ---
Pharmacy Glycemic Short Note 2 - Date of Service August 30, 2019 - Glycemic Short BSG Results (Last 24 hours): 08/29/19 08/29/19 08/29/19 11:11 16:28 20:19 Glucose POC Glucose 259 H 181 H 146 H 08/30/19 08/30/19 05:32 08:05 Glucose 123 H POC Glucose 140 H OUTPATIENT ANTIDIABETIC REGIMEN: * Insulin Glargine 30-40 units BID * Novolog per sliding scale * A1c = 8.8% 06/17/19 ASSESSMENT: 08/30 * Patient NPO for JE today due to bacteremia (enterococcus faecalis) * Basal insulin dose decreased by 50% last evening - plan to resume basal insulin scale from 08/29 when diet resumed * Post-prandial BSGs again well controlled with Novolog CF / CR - no change 08/29 * Fasting BSG at goal this AM, FBS = 118, with 25 units basal insulin on board * Post-prandial BSGs well controlled yesterday using CR 4 and CR 3.5 - will continue CR 3.5 today 08/28 * BSGs well controlled over last 24 hrs * Fasting BSG 81-93 this AM with 40 units basal insulin on board - will taper back basal doses * Post-prandial BSGs well controlled yesterday, however these BSGs consistently dropped with each subsequent dose - perhaps a slightly lesser dose is needed PLAN FOR INPATIENT GLYCEMIC CONTROL: * Basal insulin * 50% of estimated needs given 08/29 PM (7 units); 08/30 AM dose has not yet been administered * When diet resumes, restart the following Lantus order * Lantus SQ BID per scale * 10units if BSG less than 110 * 15units if BSG 110-180 * 20units if BSG above 180 * Bolus insulin (no change) * NovoLog per scale ACHS or Q6hrs while NPO * Goal Range: Low 110 mg/dL - High 150 mg/dL * Correction Factor: 25 mg/dL/unit * Nutritional / Prandial insulin per carb ratio of 1 unit per 3.5 grams CHO consumed PLAN FOR DISCHARGE: * to be determined - dependent on disposition
--- NOTE | 2019-08-30 11:09 | Post Anesthesia Assessment ---
Date of Service August 30, 2019 Post Sedation Assessment Vital Signs Temp Pulse Pulse Resp BP BP Pulse Ox 08/30/19 11:00 66 16 138/54 L 100 08/30/19 10:55 66 16 147/63 H 100 08/30/19 10:50 60 16 138/59 L 100 08/30/19 10:20 57 L 18 107/42 L 98 08/30/19 08:01 36.8 C 59 L 18 110/43 L 98 08/30/19 03:17 36.9 C 62 20 110/40 L 98 08/29/19 23:24 37.5 C 70 20 114/37 L 99 08/29/19 19:09 37.6 C H 68 18 133/45 L 98 08/29/19 15:13 36.7 C 60 18 115/42 L 98 08/29/19 11:11 36.8 C 66 18 104/44 L 100 Recovery Score Activity: Moves 4 extremities Respiration: Deep Breath/Cough Circulation: +/-20% PreAnes Value Consciousness: Fully Awake Oxygen Saturation: > 92% On Room Air Post Anesthesia Score: 10 Discharge Sedation Level of Care: Fast Track Phase II Post Sedation Plan On clinical assessment, the patient appears to have tolerated the sedation without complications. Patient is recovering as anticipated. Patient will continue to be monitored by nursing and may be discharged when sedation discharge criteria are met per below protocol. Upon Completions of procedure up to 15 minutes continue every 5 minute vital signs and the P.A.R. score; then discharge to a Phase I or Fast Track to Phase II per the following guidelines: * Discharge Patient to appropriate Phase II area if PAR is 8 or greater or re turn to pre- procedure baseline. The post - procedure orders will be as directed. * If PAR score is less than 8 or not return to pre-procedure baseline then patient will follow Phase I monitoring till PAR is reached for Phase II. The Phase I may be done in procedure room or may call to secure a Phase I area. * If naloxone or flumazenil are used for reversal, hold in Phase I for continued monitoring from when last reversal dose was given for a minimum of 60 minutes or longer pending the nurse and/or physician discretion of patient condition before discharge to Phase II. Please call the Sedation Physician to re-evaluate and complete post-note for discharge to Phase II area. Do NOT discharge from procedure sedation or Phase 1 until post- sedation evaluation note is complete by procedure /sedation MD Sedation Discharge Instructions to be given to the patient at discharge to home.
--- NOTE | 2019-08-30 11:13 | Infectious Disease Progress Nt ---
Date of Service August 30, 2019 Assessment & Plan (1) Gram positive sepsis: would give 14 days IV abx from first negative culture, 08/28 cultures negative to date. (2) UTI (urinary tract infection): Subjective pt afebrile, remains on dapto and ertapenem, wbc 4, repeat cultures remain negative. tolerating abx. Results & Data Vital Signs (Past 12 Hours) Vital Signs Temp Pulse Pulse Resp BP BP Pulse Ox 08/30/19 11:00 66 16 138/54 L 100 08/30/19 10:55 66 16 147/63 H 100 08/30/19 10:50 60 16 138/59 L 100 08/30/19 10:20 57 L 18 107/42 L 98 08/30/19 08:01 36.8 C 59 L 18 110/43 L 98 08/30/19 03:17 36.9 C 62 20 110/40 L 98 08/29/19 23:24 37.5 C 70 20 114/37 L 99 Laboratory Results Microbiology 08/28/19 10:47 Blood Aerobic Blood Culture - Preliminary No growth in Aerobic bottle after 48 hours. 08/28/19 10:47 Blood Anaerobic Blood Culture - Preliminary No growth in Anaerobic bottle after 48 hours. 08/28/19 10:32 Blood Aerobic Blood Culture - Preliminary No growth in Aerobic bottle after 48 hours. 08/28/19 10:32 Blood Anaerobic Blood Culture - Preliminary No growth in Anaerobic bottle after 48 hours. 08/26/19 18:25 Blood Aerobic Blood Culture - Preliminary No growth in Aerobic bottle after 48 hours. 08/26/19 18:25 Blood Anaerobic Blood Culture - Preliminary Enterococcus faecium 08/26/19 18:20 Blood Aerobic Blood Culture - Final Enterococcus faecium 08/26/19 18:20 Blood Anaerobic Blood Culture - Final Enterococcus faecium PG Care Time/CCT Total # of Minutes Spent Total Time Spent with Patient: Total time spent is greater than 50% in coordination of care (as documented) at patient's floor/unit and/or counseling patient: Coding Level of Care Code 26076 Subseq Hosp Care Lvl 1 Diagnoses Gram positive sepsis A41.89 UTI (urinary tract infection) N39.0
--- NOTE | 2019-08-30 12:16 | XCELERA ---
[id number] [id number]
--- NOTE | 2019-08-30 12:42 | Hospitalist Progress Note ---
Date of Service August 30, 2019 Assessment & Plan (1) UTI (urinary tract infection): Mrs. Rangel is a 68 yo F with a PMHx of liver cirrhosis and liver cancer who was admitted 08/25/19 for UTI in the post-operative setting of right ureteroscopy, laser lithotripsy and tethered stent placement on 08/22/19 with subsequent removal due to poor tolerability. - UA on admission 08/26: + 1 nitrites, 2+ LE, 2+ bacteria; Urine culture growing gram - bacilli and enterococcus - urine culture 07/28/19 grew enterococcus faecium resistant to tetracycline, otherwise sensitive to Cipro penicillins and vancomycin. - A/P CT scan does not suggest ongoing obstruction of R sided ureterolithiasis - urology consulted, plan to follow up outpatient - continue Ertapenem per ID (2) Bacteremia: - blood culture 08/26/19 from 2:35 growing alpha strep not pneumoniae - repeat cultures from 08/26/19 drawn ~ 6:00pm growing enterococcus faecium sensitive to Amp, Gent, Penicillin, Strep synery, and Vancomycin - raises concern for endocarditis; PREDICT day 1 score of 2. TTE neg for vegetations. - repeat blood cultures negative at 24 hours - Ordered JE and will follow up with ID when results return for antibiotics and duration of therapy - continue IV Daptomycin for now (3) Cirrhosis: - patient with history of cirrhosis - continue home dose Rifaxamin, Furosemide, and Nadolol (4) Increased ammonia level: - level had down trended and mentation has improved - lactulose ordered 20mg PO TID (5) Hypomagnesemia: - continue to monitor (6) Hypophosphatemia: - continue to monitor (7) Hypokalemia: - K level at 4.1 - daily BMP (8) Ureterolithiasis: - right sided non-obstructive stones visualized on 08/26/18 a/p CT can - IV fluids - urology following (9) Encephalopathy: - although patient is AAO x3, family reports different from baseline, appears to be improving - etiology: metabolic (infectious vs. electrolytes derangements) vs. hepatic (ammonia level 91) vs. multifactorial - head CT neg on 08/26 - treat infection with abx as above, electrolyte replacement as above, lactulose as above (10) Liver cancer: - following with [facility] [place] - Liver US 1/26 showing heterogeneous 3.8 cm lesion of the right hepatic lobe (11) Thrombocytopenia: - level at 68 relatively stable, continue to monitor - likely secondary to liver disease (12) Diabetes mellitus, type 2: - glycemic consult placed - A1c 6.6 Diet: heart healthy, diabetic diet DVT ppx: chemical contraindicated given thrombocytopenia and elevated INR; bilateral SCDs Code: full Dispo: PCU (13) Bilateral calf pain: - BL venous US showed no DVT Supervising Physician Co-Signing Physician Notes I personally examined the patient and verified all [place] points of history and exam, discussed case, and agree with decision making with the resident physician. I also discussed the case with cardiology and infectious disease. I agree with the impression and plan as noted above. Upon our examination late afternoon, the patient was resting without complaints. Reviewed the indications for the JE; she spoke with cardiology regarding the risks and benefits; she agrees to proceed with JE this morning. gram positive bacteremia Urinary tract infection JE today continue daptomycin and ertapenem Repeat blood cultures pending (negative from August 28). Appreciate infectious disease input. Metabolic encephalopathy secondary infection confusion/altered mental status Essentially resolved Continue to monitor. cirrhosis/hyperammonia Follow clinically Continue lactulose Anemia Likely multifactorial and stable To the monitor Subjective Doing well today, she continues to have some RUQ pain. She wanted to know what would happen during her JE today and we discussed what would happen as well as told her that it would be discussed prior to the procedure. She wanted to proceed. Review of Systems Constitutional: no fever and no chills Respiratory: no cough and no sputum production denies shortness of breath Cardiovascular: + palpitations (she states that this has improved); no chest pain Gastrointestinal: no nausea and no vomiting Genitourinary: no dysuria, no urinary frequency and no urinary hesitancy Physical Exam Constitutional: WD/WN, vitals as above Eyes: PERRL, conjunctivae normal, anicteric sclerae ENMT: external ear and nose normal, oropharynx normal Neck: trachea midline, no thyromegaly Respiratory: normal respiratory effort, lungs clear to auscultation Cardiovascular: RRR, no murmur, no edema Extremities: no pedal edema and no edema Gastrointestinal (Abdomen): Soft with some mild tenderness of the LLQ, RLQ, and RUQ. no significant ascites noted. Results & Data Vital Signs (Past 12 Hours) Vital Signs Temp Pulse Pulse Resp BP BP Pulse Ox 08/30/19 11:17 58 L 18 148/49 H 98 08/30/19 11:00 66 16 138/54 L 100 08/30/19 10:55 66 16 147/63 H 100 08/30/19 10:50 60 16 138/59 L 100 08/30/19 10:20 57 L 18 107/42 L 98 08/30/19 08:01 36.8 C 59 L 18 110/43 L 98 08/30/19 03:17 36.9 C 62 20 110/40 L 98 Resident Activity Tracking Resident Involvement: Resident Care Provided Care Provided: Adult Hospital Medicine (1) UTI (urinary tract infection) Hematuria presence: without hematuria Urinary tract infection type: site unspecified Qualified Code(s): N39.0 - Urinary tract infection, site not specified (2) Liver cancer Liver malignancy type: unspecified liver malignancy Qualified Code(s): C22.9 - Malignant neoplasm of liver, not specified as primary or secondary (3) Cirrhosis Ascites presence: unspecified Hepatic cirrhosis type: unspecified hepatic cirrhosis Qualified Code(s): K74.60 - Unspecified cirrhosis of liver
[2019-08-30] MEDS: RIFAXIMIN 550 MG TABLET PO SCH ×2 (13:03→20:24)
[2019-08-30] MEDS: FOLIC ACID 1 MG TAB PO SCH (13:04)
[2019-08-30] MEDS: GABAPENTIN 300 MG CAP PO SCH ×2 (13:04→20:24)
[2019-08-30] MEDS: POTASSIUM CHLORIDE 20 MEQ TABCR PO SCH (13:04)
[2019-08-30] MEDS: CHOLECALCIFEROL 1,000 UNITS 25 MCG TAB PO SCH (13:05)
[2019-08-30] MEDS: MAGNESIUM OXIDE 400 MG TAB PO SCH ×2 (13:05→20:24)
[2019-08-30] MEDS: ERTAPENEM SODIUM 1,000 MG in SODIUM CHLORIDE 0.9% 50 ML IV SCH (13:09)
[2019-08-30] MEDS: ATORVASTATIN 20 MG TAB PO SCH (20:24)
[2019-08-30] MEDS: ESCITALOPRAM OXALATE 10 MG TAB PO SCH (20:24)
[2019-08-30] MEDS: nadoloL 40 MG TAB PO SCH (20:24)
[2019-08-30] MEDS: DAPTOmycin 375 MG in SYRINGE 0 ML IV SCH (20:27)
[2019-08-31 07:22] LABS: Hematocrit (blood only) 26.6 % (37-47); Hemoglobin 8.6 g/dL (12.0-16.0); Mean Corpuscular Hemoglobin 35.4 pg (25-34); Mean Corpuscular Hgb Conc 32.3 g/dL (32-36); Mean Corpuscular Volume 109.5 fL (80-100); RDW Coefficient of Variation 15.4 % (11.5-14.5); RDW Standard Deviation 61.6 fL (36.4-46.3); Red Blood Count 2.43 M/uL (4.2-5.4); White Blood Count 4.23 K/uL (4.8-10.8)
[2019-08-31 07:27] LABS: Mean Platelet Volume 10.1 fL (7.4-10.4); Platelet Count 72 K/uL (130-400)
[2019-08-31 07:51] LABS: Basophils # (auto) 0.02 K/uL (0-0.2); Basophils % (auto) 0.5 %; Eosinophils # (auto) 0.12 K/uL (0-0.5); Eosinophils % (auto) 2.8 %; Immature Granulocytes # (auto) 0.01 K/uL (0.00-0.02); Immature Granulocytes % (auto) 0.2 %; Lymphocytes # (auto) 0.93 K/uL (1.2-3.4); Monocytes # (auto) 0.35 K/uL (0.11-0.59); Monocytes % (auto) 8.3 %; Neutrophils % (auto) 66.2 %; Platelet Estimate Decreased (Normal)
[2019-08-31 08:02] LABS: BUN Creatinine Ratio 25.8 (10-20); Calcium 8.1 mg/dl (8.5-10.1); Est GFR (African American) 78.8; Potassium 4.5 mmol/L (3.5-5.1)
[2019-08-31] MEDS: GABAPENTIN 300 MG CAP PO SCH ×2 (08:54→19:43)
[2019-08-31] MEDS: RIFAXIMIN 550 MG TABLET PO SCH ×2 (08:54→19:43)
[2019-08-31] MEDS: POTASSIUM CHLORIDE 20 MEQ TABCR PO SCH (08:55)
[2019-08-31] MEDS: MAGNESIUM OXIDE 400 MG TAB PO SCH ×2 (08:55→19:45)
[2019-08-31] MEDS: FERROUS SULFATE 325 MG TAB PO SCH ×2 (08:55→16:58)
[2019-08-31] MEDS: FOLIC ACID 1 MG TAB PO SCH (08:56)
[2019-08-31] MEDS: PANTOprazole 40 MG TAB PO SCH ×2 (08:56→17:14)
[2019-08-31] MEDS: LACTULOSE SYRUP 20 GM/30 ML UDC PO SCH ×3 (08:56→19:44)
[2019-08-31] MEDS: INSULIN GLARGINE SOLOSTAR 100 UNITS/ML 3 ML PEN SC SCH ×2 (08:56→19:45)
[2019-08-31] MEDS: CHOLECALCIFEROL 1,000 UNITS 25 MCG TAB PO SCH (08:56)
[2019-08-31] MEDS: INSULIN ASPART 100 UNITS/ML 3 ML PEN SC SCH ×4 (08:57→19:45)
--- NOTE | 2019-08-31 11:17 | Pharmacy Report ---
Pharmacy Glycemic Short Note 2 - Date of Service August 31, 2019 - Glycemic Short BSG Results (Last 24 hours): 08/30/19 08/30/19 08/30/19 11:28 16:23 20:33 Glucose POC Glucose 127 H 197 H 191 H 08/31/19 08/31/19 06:41 07:28 Glucose 188 H POC Glucose 172 H OUTPATIENT ANTIDIABETIC REGIMEN: * Insulin Glargine 30-40 units BID * Novolog per sliding scale * A1c = 8.8% 06/17/19 ASSESSMENT: 08/31 * BSG control acceptable over last 24 hrs * Control did worsen as a result of omission of AM basal insulin dose yesterday due to missing breakfast; BSGs climbed into 190s 2nd half of the day and remain elevated this AM - I do anticipate BSGs to improve over the next 24 hrs as the basal deficit is corrected 08/30 * Patient NPO for JE today due to bacteremia (enterococcus faecalis) * Basal insulin dose decreased by 50% last evening - plan to resume basal insulin scale from 08/29 when diet resumed * Post-prandial BSGs again well controlled with Novolog CF / CR - no change 08/29 * Fasting BSG at goal this AM, FBS = 118, with 25 units basal insulin on board * Post-prandial BSGs well controlled yesterday using CR 4 and CR 3.5 - will continue CR 3.5 today 08/28 * BSGs well controlled over last 24 hrs * Fasting BSG 81-93 this AM with 40 units basal insulin on board - will taper back basal doses * Post-prandial BSGs well controlled yesterday, however these BSGs consistently dropped with each subsequent dose - perhaps a slightly lesser dose is needed PLAN FOR INPATIENT GLYCEMIC CONTROL: * Basal insulin (no change) * Lantus SQ BID per scale * 10units if BSG less than 110 * 15units if BSG 110-180 * 20units if BSG above 180 * Bolus insulin (no change) * NovoLog per scale ACHS or Q6hrs while NPO * Goal Range: Low 110 mg/dL - High 150 mg/dL * Correction Factor: 25 mg/dL/unit * Nutritional / Prandial insulin per carb ratio of 1 unit per 3.5 grams CHO consumed PLAN FOR DISCHARGE: * to be determined - dependent on disposition
[2019-08-31] MEDS: ERTAPENEM SODIUM 1,000 MG in SODIUM CHLORIDE 0.9% 50 ML IV SCH (12:47)
--- NOTE | 2019-08-31 15:16 | Hospitalist Progress Note ---
Date of Service August 31, 2019 Assessment & Plan (1) UTI (urinary tract infection): Mrs. Rangel is a 68 yo F with a PMHx of liver cirrhosis and liver cancer who was admitted 08/25/19 for UTI in the post-operative setting of right ureteroscopy, laser lithotripsy and tethered stent placement on 08/22/19 with subsequent removal due to poor tolerability, was found to be bacteremic growing Enterococcus faecium. - UA on admission 08/26: + 1 nitrites, 2+ LE, 2+ bacteria; Urine culture growing gram - bacilli and enterococcus - urine culture 07/28/19 grew enterococcus faecium resistant to tetracycline, otherwise sensitive to Cipro penicillins and vancomycin. - A/P CT scan does not suggest ongoing obstruction of R sided ureterolithiasis - stopped Ertapenem - started Ampicillin 2g Q4H - will likely require a PICC line for IV antibiotics after discharge - Urology consulted, plan to follow up outpatient (2) Bacteremia: - blood culture 08/26/19 from 2:35 growing alpha strep not pneumoniae - repeat cultures from 08/26/19 drawn ~ 6:00pm growing enterococcus faecium sensitive to Amp, Gent, Penicillin, Strep synery, and Vancomycin - raises concern for endocarditis; PREDICT day 1 score of 2. TTE neg for vegetations. - JE with left atrium mildly dilated, PFO suspected, mild mitral regurg, and no valvular vegetations identified - Stopped IV Daptomycin - negative repeat blood cultures at 48 hours on 08/28 - Continue Ampicillin as above - ID rec: 14 days IV antibiotics (3) Cirrhosis: - patient with history of cirrhosis - continue home dose Rifaxamin, Furosemide, and Nadolol (4) Increased ammonia level: - level had down trended and mentation has improved - lactulose ordered 20mg PO TID (5) Hypomagnesemia: - improved (6) Hypophosphatemia: - improved (7) Hypokalemia: - K level at 4.5 - daily BMP (8) Ureterolithiasis: - right sided non-obstructive stones visualized on 08/26/18 a/p CT can - IV fluids - urology following (9) Encephalopathy: - although patient is AAO x3, family reports different from baseline, appears to be improving - etiology: metabolic (infectious vs. electrolytes derangements) vs. hepatic (ammonia level 91) vs. multifactorial - head CT neg on 08/26 - treat infection with abx as above, electrolyte replacement as above, lactulose as above (10) Liver cancer: - following with [facility] - Liver US 08/27 showing heterogeneous 3.8 cm lesion of the right hepatic lobe (11) Thrombocytopenia: - level at 72 relatively stable, continue to monitor - likely secondary to liver disease (12) Diabetes mellitus, type 2: - glycemic consult placed - A1c 6.6 Diet: heart healthy, diabetic diet DVT ppx: chemical contraindicated given thrombocytopenia and elevated INR; bilateral SCDs Code: full Dispo: PCU (13) Bilateral calf pain: - BL venous US showed no DVT (14) Anemia: - stable at 8.6 and 26.6, likely multifactorial - will continue to monitor Supervising Physician Co-Signing Physician Notes I personally examined the patient and verified all [place] points of history and exam, discussed case, and agree with decision making with the resident philippe tamayo. I also discussed the case with cardiology and infectious disease. I agree with the impression and plan as noted above. gram positive bacteremia Urinary tract infection Ampicillin 2 g every 4 hours Will need 14-day duration with start date of 09/28/2019 Metabolic encephalopathy secondary infection confusion/altered mental status Essentially resolved Continue to monitor. cirrhosis/hyperammonia Follow clinically Continue lactulose Anemia Likely multifactorial and stable Subjective Mrs. Rangel is doing better today. She felt well and had no questions for the team today. She is anxious to go home. Review of Systems Constitutional: no fever and no chills Respiratory: no cough and no sputum production denies shortness of breath Cardiovascular: + chest pain (dull chest pain); no palpitations Genitourinary: no dysuria, no difficulty urinating and no urinary frequency Neurologic: no headache(s) Physical Exam Constitutional: WD/WN, vitals as above Eyes: PERRL, conjunctivae normal, anicteric sclerae ENMT: external ear and nose normal, oropharynx normal Neck: trachea midline, no thyromegaly Respiratory: normal respiratory effort, lungs clear to auscultation Cardiovascular: Rate/Rhythm: regular rate and regular rhythm Heart Sounds: + murmur (2/6 holosystolic murmur heard best at the left mid clavicular line) Extremities: + calf tenderness (right sided calf tenderness, no erythema or cords appreciated); no pedal edema and no edema Gastrointestinal (Abdomen): Inspection/Auscultation: abdomen not distended Percussion/Palpation: no guarding and abdomen not rigid diffusely tender to palpation specifically in the RUQ Skin: no rashes, warm and dry Results & Data ([facility]) Vital Signs (Past 12 Hours) Vital Signs Temp Pulse Pulse Resp BP BP Pulse Ox 08/31/19 15:00 36.4 C L 62 19 117/42 L 100 08/31/19 11:53 36.3 C L 95 H 18 136/48 L 95 08/31/19 08:00 60 08/31/19 07:00 36.8 C 61 16 127/41 L 98 08/31/19 04:05 36.8 C 62 18 108/43 L 96 Resident Activity Tracking Resident Involvement: Resident Care Provided Care Provided: Adult Hospital Medicine (1) UTI (urinary tract infection) Hematuria presence: without hematuria Urinary tract infection type: site unspecified Qualified Code(s): N39.0 - Urinary tract infection, site not specified (2) Liver cancer Liver malignancy type: unspecified liver malignancy Qualified Code(s): C22.9 - Malignant neoplasm of liver, not specified as primary or secondary (3) Anemia Anemia type: unspecified type Qualified Code(s): D64.9 - Anemia, unspecified (4) Cirrhosis Ascites presence: unspecified Hepatic cirrhosis type: unspecified hepatic cirrhosis Qualified Code(s): K74.60 - Unspecified cirrhosis of liver
[2019-08-31] MEDS: AMPICILLIN 2,000 MG in SODIUM CHLOR 0.9% AD-VAN 100 ML IV SCH ×3 (15:28→23:42)
[2019-08-31] MEDS: ESCITALOPRAM OXALATE 10 MG TAB PO SCH (19:42)
[2019-08-31] MEDS: ATORVASTATIN 20 MG TAB PO SCH (19:43)
[2019-08-31] MEDS: nadoloL 40 MG TAB PO SCH (19:43)
[2019-09-01] MEDS: AMPICILLIN 2,000 MG in SODIUM CHLOR 0.9% AD-VAN 100 ML IV SCH ×4 (03:35→15:53)
[2019-09-01 06:06] LABS: Hematocrit (blood only) 23.8 % (37-47); Hemoglobin 7.9 g/dL (12.0-16.0); Mean Corpuscular Hemoglobin 36.1 pg (25-34); Mean Corpuscular Hgb Conc 33.2 g/dL (32-36); Mean Corpuscular Volume 108.7 fL (80-100); RDW Coefficient of Variation 15.2 % (11.5-14.5); RDW Standard Deviation 60.5 fL (36.4-46.3); Red Blood Count 2.19 M/uL (4.2-5.4)
[2019-09-01 06:17] LABS: Mean Platelet Volume 10.5 fL (7.4-10.4); Platelet Count 77 K/uL (130-400)
[2019-09-01 06:37] LABS: BUN Creatinine Ratio 26.6 (10-20); Calcium 7.7 mg/dl (8.5-10.1); Creatinine Clr Calc Pharmacy 69.9 ml/min; Est GFR (African American) 94.3; Est GFR (Non-African American) 81.3; Potassium 4.3 mmol/L (3.5-5.1)
[2019-09-01 06:45] LABS: ALC (manual) 0.49 K/uL (1.2-3.4); ANC (manual) 3.55 K/uL (1.4-6.5); Eosinophils # (manual) 0.11 K/uL (0-0.5); Eosinophils % (manual) 2.6 %; Giant Platelets 1+; Lymphocytes # (manual) 0.49 K/uL (1.2-3.4); Lymphocytes % (manual) 11.3 %; Monocytes # (manual) 0.15 K/uL (0.11-0.59); Monocytes % (manual) 3.5 %; Neutrophils # (manual) 3.55 K/uL (1.4-6.5); Neutrophils % (manual) 82.6 %
[2019-09-01] MEDS: GABAPENTIN 300 MG CAP PO SCH (08:40)
[2019-09-01] MEDS: RIFAXIMIN 550 MG TABLET PO SCH (08:40)
[2019-09-01] MEDS: CHOLECALCIFEROL 1,000 UNITS 25 MCG TAB PO SCH (08:40)
[2019-09-01] MEDS: PANTOprazole 40 MG TAB PO SCH ×2 (08:41→15:54)
[2019-09-01] MEDS: FERROUS SULFATE 325 MG TAB PO SCH ×2 (08:41→15:54)
[2019-09-01] MEDS: LACTULOSE SYRUP 20 GM/30 ML UDC PO SCH ×2 (08:41→15:26)
[2019-09-01] MEDS: POTASSIUM CHLORIDE 20 MEQ TABCR PO SCH (08:41)
[2019-09-01] MEDS: MAGNESIUM OXIDE 400 MG TAB PO SCH (08:44)
[2019-09-01] MEDS: INSULIN ASPART 100 UNITS/ML 3 ML PEN SC SCH ×3 (08:44→16:36)
[2019-09-01] MEDS: INSULIN GLARGINE SOLOSTAR 100 UNITS/ML 3 ML PEN SC SCH (08:46)
[2019-09-01] MEDS: FOLIC ACID 1 MG TAB PO SCH (10:03)
--- NOTE | 2019-09-01 13:17 | Pharmacy Report ---
Pharmacy Glycemic Short Note 2 - Date of Service September 01, 2019 - Glycemic Short BSG Results (Last 24 hours): 08/31/19 08/31/19 09/01/19 16:27 19:38 05:45 Glucose 140 H POC Glucose 214 H 215 H 09/01/19 09/01/19 07:20 11:21 Glucose POC Glucose 129 H 276 H OUTPATIENT ANTIDIABETIC REGIMEN: * Insulin Glargine 30-40 units BID * Novolog per sliding scale * A1c = 8.8% 06/17/19 ASSESSMENT: 09/01 * BSG control poor over last 24 hrs with the exception of fasting BSG at goal * Fasting BSG 129 this AM with 35 units basal on board - no change in dosing scale * Post-prandial hyperglycemia observed yesterday - new trend for patient this admission, will increase prandial and correctional insulin doses as a result 08/31 * BSG control acceptable over last 24 hrs * Control did worsen as a result of omission of AM basal insulin dose yesterday due to missing breakfast; BSGs climbed into 190s 2nd half of the day and remain elevated this AM - I do anticipate BSGs to improve over the next 24 hrs as the basal deficit is corrected 08/30 * Patient NPO for JE today due to bacteremia (enterococcus faecalis) * Basal insulin dose decreased by 50% last evening - plan to resume basal insulin scale from 08/29 when diet resumed * Post-prandial BSGs again well controlled with Novolog CF / CR - no change 08/29 * Fasting BSG at goal this AM, FBS = 118, with 25 units basal insulin on board * Post-prandial BSGs well controlled yesterday using CR 4 and CR 3.5 - will continue CR 3.5 today 08/28 * BSGs well controlled over last 24 hrs * Fasting BSG 81-93 this AM with 40 units basal insulin on board - will taper back basal doses * Post-prandial BSGs well controlled yesterday, however these BSGs consistently dropped with each subsequent dose - perhaps a slightly lesser dose is needed PLAN FOR INPATIENT GLYCEMIC CONTROL: * Basal insulin (no change) * Lantus SQ BID per scale * 10units if BSG less than 110 * 15units if BSG 110-180 * 20units if BSG above 180 * Bolus insulin (increase) * NovoLog per scale ACHS or Q6hrs while NPO * Goal Range: Low 110 mg/dL - High 150 mg/dL * Correction Factor: 20 mg/dL/unit * Nutritional / Prandial insulin per carb ratio of 1 unit per 3 grams CHO consumed PLAN FOR DISCHARGE: * to be determined - dependent on disposition
--- NOTE | 2019-09-01 20:16 | Discharge Summary ---
Date of Service September 01, 2019 Admission HPI Per Admitting Provider The patient is a 68 years old female with past medical history of liver cancer, liver cirrhosis, COPD, pancytopenia, neuropathy, right kidney stone, hepatic encephalopathy who was brought to the emergency room by her family with complaint that patient has altered mental status started the day before. Per son who is next to patient bedside the patient was seen yesterday at 1 AM in the emergency room for the same reason. She was given Rocephin at that time and discharged home with amoxicillin 500 mg p.o. 3 times daily for 10 days. The patient took antibiotics today. Later on today she received a call from the emergency room advising her to come back to the emergency room because her blood cultures were positive. Patient stated that she continued to have fever on and off during the day. Patient was yesterday seen in Dr. Aguilar office urologist where her Tethered stent was removed. Per Dr. Aguilar note the stent was removed without any problems. Patient tolerated procedure well. Per patient son patient was not feeling well since yesterday.Patient son reports that patient was drinking in the past a lot but she quit drinking approximately 1 year ago.She is also former smoker and she smoked 4 packs/day. Labs are reviewed: Sodium 137, potassium 2.9, chloride 106, carbon dioxide 28, anion gap 4, BUN 15, creatinine 1.03, GFR 55.4, glucose 238, lactate 2.1, will repeat lactate, calcium 7.8, phosphorus 2.1,magnesium is over 1.6, total bili 1.4, AST 59, ALT 40, alkaline phosphatase 138, ammonia 41, troponin 0.015, total protein 6.9, albumin 2.3, globulin 4.6,. Influenza A and B neg. CT abdomen pelvis: Findings suggest cystitis. Chronic liver morphology. Market splenomegaly trace abdominal ascites, upper abdominal varices, and a splenorenal shunt indicate portal hypertension. Right-sided nephrolithiasis. Liquid stool is noted throughout the colon. Correlate clinically for evidence of diarrheal disease. Cholelithiasis. Enlarged upper abdominal lymph nodes are likely related to chronic liver disease. Cardiomegaly and emphysema with evidence of anemia. Mild standing around the right colon suggest portal colopathy. Chest x-ray cardiomegaly with no active disease in the chest. Decision was made to admit patient to PCU on telemetry for sepsis most likely related to urinary tract infection earlier this week with positive nitrate 3+ blood, positive leukocyte esterase and positive bacteria. Admission Exam Per Admitting Provider Constitutional: WD/WN, vitals as above well developed and + ill appearing Eyes: PERRL, conjunctivae normal, anicteric sclerae ENMT: external ear and nose normal, oropharynx normal Neck: trachea midline, no thyromegaly Respiratory: normal respiratory effort, lungs clear to auscultation Cardiovascular: Heart Sounds: normal S1, normal S2 and + murmur Vessels: dorsalis pedis pulses present Gastrointestinal (Abdomen): normal bowel sounds, soft, nontender, no hepatosplenomegaly Musculoskeletal: no cyanosis or clubbing, extremities motor strength 5/5 Skin: no rashes, warm and dry Neurologic: patellar DTR's 2+ bilat, sensation intact Psychiatric: Orientation: alert Insight: + limited insight Lymphatic: no cervical or axillary lymphadenopathyConstitutional: WD/WN, vitals as above well developed and + ill appearing Eyes: PERRL, conjunctivae normal, anicteric sclerae ENMT: external ear and nose normal, oropharynx normal Neck: trachea midline, no thyromegaly Respiratory: normal respiratory effort, lungs clear to auscultation Cardiovascular: Heart Sounds: normal S1, normal S2 and + murmur Vessels: dorsalis pedis pulses present Gastrointestinal (Abdomen): normal bowel sounds, soft, nontender, no hepatosplenomegaly Musculoskeletal: no cyanosis or clubbing, extremities motor strength 5/5 Skin: no rashes, warm and dry Neurologic: patellar DTR's 2+ bilat, sensation intact Psychiatric: Orientation: alert Insight: + limited insight Lymphatic: no cervical or axillary lymphadenopathy Principal Diagnosis complicated UTI Bacteremia Cirrhosis Hyperammonemia Encephalopathy Thrombocytopenia Anemia Discharge Exam Constitutional WD/WN, vitals as above Eyes PERRL, conjunctivae normal, anicteric sclerae ENMT external ear and nose normal, oropharynx normal Neck trachea midline, no thyromegaly Respiratory normal respiratory effort, lungs clear to auscultation Cardiovascular RRR, no murmur, no edema Rate/Rhythm: regular rate and regular rhythm Heart Sounds: + murmur (2/6 holosystolic murmur heard best at the left mid clavicular line) Extremities: + calf tenderness (right sided calf tenderness, no erythema or cords appreciated); no pedal edema and no edema Gastrointestinal (Abdomen) Inspection/Auscultation: abdomen not distended Percussion/Palpation: no guarding and abdomen not rigid Skin no rashes, warm and dry Discharge Data Allergies Allergy/AdvReac Type Severity Reaction Status Date / Time methyl salicylate Allergy Mild RASH Verified 08/26/19 02:22 nickel Allergy Mild RASH Verified 08/26/19 02:22 zinc Allergy Mild RASH Verified 08/26/19 02:22 mint Allergy Verified 08/27/19 14:25 diphenhydramine AdvReac Intermediate BURNING Verified 08/26/19 02:22 EYES,DIZZY,BLISTERS Consultations 08/26/19 18:17 ED Decision to Admit Stat 08/26/19 20:41 Consult Case Management - Discharge Planning Routine Consult Urology Routine 08/27/19 16:08 Consult Infectious Diseases Stat 08/29/19 16:51 Consult Anesthesiology Routine Procedures Performed Operation Date: 08/30/19 10:30 Actual Procedures p Echo Transesophageal - Bong Jha MD s Echo Color Flow - Bong Jha MD s Echo Doppler Complete - Bong Jha MD Ordered Studies 08/26/19 21:00 CT head/brain wo con Stat 08/27/19 20:41 US liver Routine 08/28/19 12:28 US venous doppler LE BI Routine Hospital Course (1) UTI (urinary tract infection): Mrs. Rangel is a 68 yo F with a PMHx of liver cirrhosis and liver cancer who was admitted 08/25/19 for UTI in the post-operative setting of right ureteroscopy, laser lithotripsy and tethered stent placement on 08/22/19 with subsequent removal due to poor tolerability, was found to be bacteremic growing Enterococcus faecium. - UA on admission 08/26: + 1 nitrites, 2+ LE, 2+ bacteria; Urine culture growing gram - bacilli and enterococcus - urine culture 07/28/19 grew enterococcus faecium resistant to tetracycline, otherwise sensitive to Cipro penicillins and vancomycin. - A/P CT scan does not suggest ongoing obstruction of R sided ureterolithiasis - continue Ampicillin 2g Q4H, ID rec: 14 days IV antibiotics from negative cultures (08/28) - ultrasound guided IV line placed for Abx. - Urology consulted, plan to follow up outpatient (2) Bacteremia: - blood culture 08/26/19 growing alpha strep not pneumoniae - repeat cultures from 08/26/19 growing enterococcus faecium sensitive to Amp, Gent, Penicillin, Strep synery, and Vancomycin - raises concern for endocarditis; PREDICT day 1 score of 2. TTE neg for vegetations. - JE with left atrium mildly dilated, PFO suspected, mild mitral regurg, and no valvular vegetations identified - negative repeat blood cultures at 48 hours on 08/28 - Continue Ampicillin as above (3) Cirrhosis: - patient with history of cirrhosis - continue home dose Rifaxamin, Furosemide, and Nadolol (4) Increased ammonia level: - level had down trended and mentation has improved - lactulose ordered 20mg PO TID (5) Hypomagnesemia: - improved (6) Hypophosphatemia: - improved (7) Hypokalemia: - improved K level at 4.3 at discharge (8) Ureterolithiasis: - right sided non-obstructive stones visualized on 08/26/18 a/p CT scan (9) Encephalopathy: - although patient is AAO x3, family reports different from baseline, appears to have improved - etiology: metabolic (infectious vs. electrolytes derangements) vs. hepatic (ammonia level 91) vs. multifactorial - head CT neg on 08/26 - treat infection with abx as above, electrolyte replaced, lactulose as above (10) Liver cancer: - following with [facility] - Liver US 08/27 showing heterogeneous 3.8 cm lesion of the right hepatic lobe (11) Thrombocytopenia: - level at 72 relatively stable, continue to monitor - likely secondary to liver disease (12) Diabetes mellitus, type 2: - glycemic consult placed - A1c 6.6 (13) Bilateral calf pain: - BL venous US showed no DVT (14) Anemia: - stable at 7.9 and 23.8 on discharge, likely multifactorial - follow up with CBC in one week Total Time Total Time Spent Total Time Spent (In Minutes): Discharge Plan Discharge Items Patient Disposition: Transfer Inpatient Rehab Fac Reason For Visit: SEPSIS Discharge Diagnosis: Bacteremia Activity: Per Instructions section Non-emergency contact: Primary Care Provider Call non-emergency contact if: your temperature is above 101.5 Follow-up/Referrals: Laila Thakkar MD [Primary Care Provider] - Diet: Regular Addtl Attending Provider Instructions: You were admitted for a urinary tract infection that lead to bacteremia. You have been doing well prior to leaving the hospital without fevers or other signs of worsening infection. We looked at your heart with an ultrasound and we did not find that you had any signs of infection on your heart. You were started on IV Antibiotics and will need to continue these for a total of 14 days from the . You will be going to [facility] from the hospital and they will be able to continue your IV antibiotics. Pending Studies at Discharge: Yes Studies:: blood culture negative at 48 hours Stand-Alone Forms: My [facility], Smoking Cessation Skilled Items Lines: US Guided Peripheral IV Urinary Catheter: No Medications and DC Order Prescriptions: New ampicillin sodium 2 gram recon soln 2 gm IM Q4H 10 Days Qty: 1 RF: 0 Continued gabapentin 300 mg capsule 300 mg PO BID Qty: 60 RF: 5 Novolog Flexpen U-100 Insulin 100 unit/mL (3 mL) insulin pen See Rx Instructions SUBCUT .COMPLEX Qty: 15 RF: 1 furosemide 20 mg tablet See Rx Instructions .ROUTE .COMPLEX Qty: 60 RF: 11 (DME) pen needle, diabetic [BD Teressa 2nd Gen Pen Needle] 32 gauge x 5/32" needle See Rx Instructions .ROUTE .MEDSUPPLY Qty: 100 RF: 0 (DME) lancets 30 gauge misc See Dose Instructions .ROUTE .MEDSUPPLY RF: 0 atorvastatin 20 mg tablet 20 mg PO HS Qty: 90 RF: 0 cholecalciferol (vitamin D3) 2,000 unit Capsule 2,000 unit PO QAM RF: 0 nadolol 20 mg tablet 20 mg PO QPM RF: 0 pantoprazole 40 mg tablet,delayed release (DR/EC) 40 mg PO BIDM RF: 0 folic acid 1 mg tablet 1 mg PO DAILY RF: 0 escitalopram oxalate 10 mg tablet 10 mg PO HS RF: 0 magnesium oxide 400 mg (241.3 mg magnesium) tablet 400 mg PO DAILY RF: 0 ferrous sulfate 325 mg (65 mg iron) tablet 325 mg PO BIDM RF: 0 Xifaxan 550 mg tablet 550 mg PO BID RF: 0 Basaglar KwikPen U-100 Insulin 100 unit/mL (3 mL) insulin pen See Rx Instructions .ROUTE .COMPLEX Qty: 15 RF: 11 lactulose 20 gram/30 mL Solution 20 gm PO BID Qty: 3000 RF: 0 Discontinued amoxicillin 500 mg capsule 500 mg PO TID 10 Days Qty: 30 RF: 0 Discharge Orders: Discharge Order (Routine); Ordered 09/01/19 Ordered By: Ifeanyi Gay Admission Data Admit Date/Time: 08/26/19 19:42 Attending Provider: Sary Grady Admit Provider: Dilshad Gonzalez Primary Care Provider: Laila Thakkar Other Providers: Dilshad Gonzalez ; Abdirahman Nettles I. ; Sara Reaves ; Bong Jha ; [facility] Other Interventions: Discharge Summary Assessment (RN) Last Done: 09/01/19 16:29 DC Date/Time DO NOT enter until pt leaves facility: 09/01/19 17:35 Supervising Physician Co-Signing Physician Notes Patient seen and examined with PGY-1 Dr. Gay. Agree with history, exam findings, assessment and plan of care. In brief, Ms. Rangel is a 68 year old female admitted with delirium secondary to urinary tract infection and bacteremia. Blood cultures and urine culture grew out enterococcus. JE negative for enterococcus. Will complete a 14 day course of antibiotics--discharged on IV ampicillin. Other chronic issues stable and home medications continued. Discharge to SNF today. I personally spent 35 minutes discharge planning for this patient. Resident Activity Tracking Resident Involvement: Resident Care Provided Care Provided: Adult Hospital Medicine
== END 2019-09-01 17:35 | DRG 871 ==
LOC: ED 17:33 → 2E 19:42 → SUATTDRO 19:42 → 2E 20:16

== ENCOUNTER 2019-10-25 10:18 | Inpatient (IN) ==
--- NOTE | 2019-10-25 10:36 | Emergency Department Note ---
Impression & Plan Acute hepatic encephalopathy, Hyperglycemia due to type 2 diabetes mellitus, Lethargic Allergies Allergies Allergy/AdvReac Type Severity Reaction Status Date / Time methyl salicylate Allergy Mild RASH Verified 10/25/19 11:08 nickel Allergy Mild RASH Verified 10/25/19 11:08 zinc Allergy Mild RASH Verified 10/25/19 11:08 mint Allergy Verified 10/25/19 11:08 diphenhydramine AdvReac Intermediate BURNING Verified 10/25/19 11:08 EYES,DIZZY,BLISTERS Home Meds Home Medications Medication Instructions Recorded Confirmed cholecalciferol (vitamin D3) 2,000 unit PO QAM 04/13/18 10/25/19 ferrous sulfate 325 mg PO BIDM 04/14/19 10/25/19 lancets 30 gauge ea 04/19/19 10/04/19 escitalopram oxalate 10 mg PO HS 06/15/19 10/25/19 folic acid 1 mg PO QAM 06/15/19 10/25/19 nadolol 20 mg PO QPM 06/15/19 10/25/19 pantoprazole 40 mg PO BIDM 06/15/19 10/25/19 Xifaxan 550 mg PO BID 10/06/19 10/25/19 acetaminophen [Tylenol] 650 mg PO Q4H PRN 10/06/19 10/25/19 furosemide 20 mg PO DAILY PRN 10/06/19 10/25/19 gabapentin 300 mg PO BID 10/06/19 10/25/19 potassium chloride 20 mEq 20 meq PO BID 10/23/19 10/25/19 tablet,extended release Previous Rx's Medication Instructions Recorded atorvastatin 20 mg tablet 20 mg PO HS #90 tab 06/26/19 lactulose 20 gm PO BID #3000 ml 07/31/19 insulin glargine 100 unit/mL (3 See Rx Instructions .ROUTE 09/12/19 mL) subcutaneous pen .COMPLEX #15 milliliter pen needle, diabetic 32 gauge x #100 ea 10/04/19" levofloxacin 750 mg tablet 750 mg PO DAILY 7 Days #7 tab 10/23/19 ED Provider Note Provider: Lucien Urbina MD DATE OF SERVICE: 10/25/2019 CHIEF COMPLAINT: Weakness HISTORY OF PRESENT ILLNESS: Patient is a 69-year-old female with a history of liver cirrhosis, diabetes, UTI, anemia, hypertension, thrombocytopenia, and COPD presenting here today via EMS with a complaint of weakness. Patient was recently in [facility] for rehab services and together discharged several days ago. Home nursing has been visiting the patient and called prior to arrival to express concerns about her ability to care for self at home. Patient's blood sugars elevated greater than 400 here upon arrival. Mildly altered aware of person but not time. During exam she frequently changes complaints initially with some chest pain with some abdominal pain told the nurse no pain. Appears fatigued on exam. Son later arrives and states they have been taking her medication at home but her regimens been altered since discharge from rehab that she seems much more lethargic now. They believe she may require a fdc facility stay and have concerns about taking care of her at home. REVIEW OF SYSTEMS: Limited secondary to the patient's mental status with frequent changes in complaints and review of systems PAST MEDICAL HISTORY: As noted above MEDICATIONS: Reviewed the nursing notes. SOCIAL HISTORY: Lives at home with son. Former smoker. PHYSICAL EXAM: GENERAL: alert and oriented to person. Eyes closed resting on the stretcher appears fatigued Head: normocephalic and atraumatic EYES: No injection, discharge or icterus. PERRL,. NECK: Trachea midline. Supple. No posterior neck tenderness. ENT: Mucous membranes pink and moist. LUNGS: Airway patent. No retractions. Breath sounds clear HEART: Regular rate and rhythm. No chest wall tenderness ABDOMEN: Soft and non-tender, without guarding or rebound. BACK: No bilateral flank tenderness. SKIN: Acyanotic, warm, dry, without rashes EXTREMITIES: Without swelling, tenderness or deformity except for compression stockings to the calves with 1+ higher lower extremity swelling just above the compression stockings NEUROLOGICAL: Moving all extremities. Eyes are closed during the exam and she seems fatigued. States it is 2200 for the year and the second month. EKG: Sinus bradycardia at 59 bpm. No PVC. No ST segment elevation or depression. Normal QTC. CONTINUOUS CARDIAC MONITORING: was ordered and showed a heart rate of 62 bpm in NSR Patient's hypertension was referred to the hospitalist HOSPITAL COURSE: 1028 Patient was first seen and H&P performed. 1148 Patient reassessed and updated. Patient and son were updated. Hospitalist will be contacted. Differential includes Infection, dehydration, metabolic abnormality, hypo/hyperglycemia, electrolyte disturbance, anemia, hypoxia, cardiac sources, intracerebral event, toxicologic, neurologic, as well as other pathologies. Patient's laboratory studies and imaging reviewed. IMPRESSION/MEDICAL DECISION MAKING: Patient presents from home via EMS appears fatigued and poor historian. Recent evaluation here and at [facility]. Patient does have a history of liver issues and ammonia seems to be elevated. Home health is called prior to arrival learning that they have concerns about ability care for self at home at this time. Glucose is uncontrolled. Ammonia elevated and seems like mild hepatic encephalopathy. Given her somewhat altered status CT the head is complete without acute findings. Doubt CVA. Chest x-ray is unremarkable. No noted fevers here. Patient has baseline leukopenia and anemia. Slightly worsened thrombocytopenia. Patient is quite fatigued and not in a condition to go home. Do have concern the patient may require placement for adequate care.They agree patient likely will need SNF referral when stabilized. Given some lactulose and insulin here. Discussed with the patient's son and the patient. We will have the hospitalist evaluate for further care. DIAGNOSIS: Weakness, hyperglycemia secondary to type 2 diabetes, hepatic encephalopathy DISPOSITION: Hospitalist will evaluate Patient was agreeable with this plan. Past Med/Surg History Social History Preferred Language: Bengali Communication Ability: Effective Visual Impairment: No Limitations [employer] Required: No Beliefs That Will Affect Care: None marital status: / Current Living Situation: Family Current Living Situation Comment: With son. Feels Safe at Home: Yes Smoking Status: Former smoker Tobacco Type: cigarettes ; Cigarettes Per Day: 4 PPD ; Second Hand Exposure: No ; Hx Alcohol Use: No Hx Substance Use: No Results & Data (ED) Vital Signs Vital Signs - 24 hr 10/25/19 10:24 10/25/19 10:35 10/25/19 11:12 Temperature 36.8 C Temperature Source Oral Pulse Rate 58 L 63 Pulse Rate [Apical] 61 Pulse Rate from SpO2 Sensor 63 Pulse Rhythm Regular Respiratory Rate 12 12 Respiratory Effort / Characteristics Non-Labored Respiratory Depth Normal Blood Pressure 136/54 L 133/58 L Blood Pressure [Right Arm] 141/48 H Blood Pressure Mean 81 75 Blood Pressure Mean [Right Arm] 79 Blood Pressure Position Sitting Pulse Oximetry 99 99 99 Oxygen Delivery Method Room Air Room Air Room Air Sepsis Recent Fever Within 48 Hours No Sepsis New/Unexplained Change in Mental Status No Sepsis Action Taken by Nursing No Action Required 10/25/19 11:31 10/25/19 12:00 10/25/19 12:30 Temperature Temperature Source Pulse Rate 69 62 62 Pulse Rate [Apical] Pulse Rate from SpO2 Sensor 67 61 62 Pulse Rhythm Respiratory Rate 12 15 12 Respiratory Effort / Characteristics Respiratory Depth Blood Pressure 143/54 H 130/57 L 122/66 Blood Pressure [Right Arm] Blood Pressure Mean 70 85 80 Blood Pressure Mean [Right Arm] Blood Pressure Position Pulse Oximetry 100 99 100 Oxygen Delivery Method Room Air Room Air Room Air Sepsis Recent Fever Within 48 Hours Sepsis New/Unexplained Change in Mental Status Sepsis Action Taken by Nursing 10/25/19 12:41 Temperature Temperature Source Pulse Rate 61 Pulse Rate [Apical] Pulse Rate from SpO2 Sensor Pulse Rhythm Respiratory Rate 15 Respiratory Effort / Characteristics Respiratory Depth Blood Pressure 122/66 Blood Pressure [Right Arm] Blood Pressure Mean Blood Pressure Mean [Right Arm] Blood Pressure Position Pulse Oximetry 98 Oxygen Delivery Method Room Air Sepsis Recent Fever Within 48 Hours Sepsis New/Unexplained Change in Mental Status Sepsis Action Taken by Nursing Laboratory Data Result diagrams: 10/25/19 10:49 10/25/19 10:49 Lab Results 10/25/19 10/25/19 10/25/19 Range/Units 10:49 10:49 10:49 WBC 3.61 L (4.8-10.8) K/uL RBC 2.50 L (4.2-5.4) M/uL Hgb 8.9 L (12.0-16.0) g/dL Hct 26.1 L (37-47) % MCV 104.4 H (80-100) fL MCH 35.6 H (25-34) pg MCHC 34.1 (32-36) g/dL RDW Std Deviation 57.7 H (36.4-46.3) fL RDW Coeff of Chloe 15.1 H (11.5-14.5) % Plt Count 35 L (130-400) K/uL MPV 11.5 H (7.4-10.4) fL Immature Gran % (Auto) 0.0 % Neut % (Auto) 64.4 % Lymph % (Auto) 24.7 % [place] % (Auto) 7.8 % Eos % (Auto) 2.5 % Baso % (Auto) 0.6 % Immature Gran # (Auto) 0.00 (0.00-0.02) K/uL Neut # (Auto) 2.33 (1.4-6.5) K/uL Lymph # (Auto) 0.89 L (1.2-3.4) K/uL [place] # (Auto) 0.28 (0.11-0.59) K/uL Eos # (Auto) 0.09 (0-0.5) K/uL Baso # (Auto) 0.02 (0-0.2) K/uL PT 13.5 H (9.0-12.0) Seconds INR 1.3 H (0.9-1.1) Sodium 136 (136-145) mmol/L Potassium 4.9 (3.5-5.1) mmol/L Chloride 115 H (98-107) mmol/L Carbon Dioxide 21 (21-32) mmol/L Anion Gap 0 L (3-11) BUN 24 H (7-18) mg/dl Creatinine 0.94 (0.6-1.2) mg/dl Est Cr Clr Drug Dosing 52.9 ml/min Est GFR ( Amer) 71.2 Est GFR (Non-Af Amer) 61.5 BUN/Creatinine Ratio 25.0 H (10-20) Glucose 502 H* (70-99) mg/dl POC Glucose (70-99) mg/dl Calcium 8.8 (8.5-10.1) mg/dl Magnesium 2.0 (1.8-2.4) mg/dl Total Bilirubin 0.7 (0.2-1) mg/dl AST 50 H (15-37) U/L ALT 44 (12-78) U/L Alkaline Phosphatase 142 H (45-117) U/L Ammonia (11-32) umol/L Troponin I < 0.015 (0-0.045) ng/ml Total Protein 6.4 (6.4-8.2) gm/dl Albumin 1.8 L (3.4-5.0) gm/dl Globulin 4.6 H (2.5-4.0) gm/dl Albumin/Globulin Ratio 0.4 L (0.9-2) Beta-Hydroxybutyric Acd 0.85 (0.2-2.81) mg/dl TSH 2.540 (0.300-4.500) uIu/ml 10/25/19 10/25/19 Range/Units 10:49 12:55 WBC (4.8-10.8) K/uL RBC (4.2-5.4) M/uL Hgb (12.0-16.0) g/dL Hct (37-47) % MCV (80-100) fL MCH (25-34) pg MCHC (32-36) g/dL RDW Std Deviation (36.4-46.3) fL RDW Coeff of Chloe (11.5-14.5) % Plt Count (130-400) K/uL MPV (7.4-10.4) fL Immature Gran % (Auto) % Neut % (Auto) % Lymph % (Auto) % [place] % (Auto) % Eos % (Auto) % Baso % (Auto) % Immature Gran # (Auto) (0.00-0.02) K/uL Neut # (Auto) (1.4-6.5) K/uL Lymph # (Auto) (1.2-3.4) K/uL [place] # (Auto) (0.11-0.59) K/uL Eos # (Auto) (0-0.5) K/uL Baso # (Auto) (0-0.2) K/uL PT (9.0-12.0) Seconds INR (0.9-1.1) Sodium (136-145) mmol/L Potassium (3.5-5.1) mmol/L Chloride (98-107) mmol/L Carbon Dioxide (21-32) mmol/L Anion Gap (3-11) BUN (7-18) mg/dl Creatinine (0.6-1.2) mg/dl Est Cr Clr Drug Dosing ml/min Est GFR ( Amer) Est GFR (Non-Af Amer) BUN/Creatinine Ratio (10-20) Glucose (70-99) mg/dl POC Glucose 389 H* (70-99) mg/dl Calcium (8.5-10.1) mg/dl Magnesium (1.8-2.4) mg/dl Total Bilirubin (0.2-1) mg/dl AST (15-37) U/L ALT (12-78) U/L Alkaline Phosphatase (45-117) U/L Ammonia 77.2 H (11-32) umol/L Troponin I (0-0.045) ng/ml Total Protein (6.4-8.2) gm/dl Albumin (3.4-5.0) gm/dl Globulin (2.5-4.0) gm/dl Albumin/Globulin Ratio (0.9-2) Beta-Hydroxybutyric Acd (0.2-2.81) mg/dl TSH (0.300-4.500) uIu/ml Administered Medications Discontinued Medications Insulin Human Regular (Novolin R U-100 Per Unit) 10 units IV NOW STA Stop: 10/25/19 11:35 Last Admin: 10/25/19 11:42 Dose: 10 units Documented by: [id number] Cosigned by: [id number] Lactulose (Chronulac) 30 gm PO NOW STA Stop: 10/25/19 11:22 Last Admin: 10/25/19 11:31 Dose: 30 gm Documented by: [id number] Discharge Plan Visit Data Chief Complaint: Weakness Stated Complaint: weakness ED Provider: Lucien Urbina Discharge Problem: Acute hepatic encephalopathy, Hyperglycemia due to type 2 diabetes mellitus, Lethargic Patient Disposition: Being Evaluated by Hospitalist Condition: Fair Discharge Instructions Interventions: ED Discharge Assessment Last Done: 10/25/19 12:41 Forms Stand Alone Forms: My [facility] [employer] Prescriptions Prescriptions: No Action levofloxacin 750 mg tablet 750 mg PO DAILY 7 Days Qty: 7 RF: 0 (DME) pen needle, diabetic [BD Teressa 2nd Gen Pen Needle] 32 gauge x 5/32" needle See Rx Instructions .ROUTE .MEDSUPPLY Qty: 100 RF: 0 (DME) lancets 30 gauge misc See Dose Instructions .ROUTE .MEDSUPPLY RF: 0 atorvastatin 20 mg tablet 20 mg PO HS Qty: 90 RF: 0 Basaglar KwikPen U-100 Insulin 100 unit/mL (3 mL) insulin pen See Rx Instructions .ROUTE .COMPLEX Qty: 15 RF: 11 potassium chloride 20 mEq tablet extended release 20 meq PO BID RF: 0 cholecalciferol (vitamin D3) 2,000 unit Capsule 2,000 unit PO QAM RF: 0 nadolol 20 mg tablet 20 mg PO QPM RF: 0 pantoprazole 40 mg tablet,delayed release (DR/EC) 40 mg PO BIDM RF: 0 folic acid 1 mg tablet 1 mg PO QAM RF: 0 escitalopram oxalate 10 mg tablet 10 mg PO HS RF: 0 Xifaxan 550 mg Tablet 550 mg PO BID RF: 0 furosemide 20 mg tablet 20 mg PO DAILY PRN (Reason: weight gain/swelling) RF: 0 acetaminophen [Tylenol] 325 mg Tablet 650 mg PO Q4H PRN (Reason: pain/fever) RF: 0 gabapentin 300 mg Capsule 300 mg PO BID RF: 0 ferrous sulfate 325 mg (65 mg iron) tablet 325 mg PO BIDM RF: 0 lactulose 20 gram/30 mL Solution 20 gm PO BID Qty: 3000 RF: 0 Referrals Referrals: Laila Thakkar MD [Primary Care Provider] - Discharge Problem: Hyperglycemia due to type 2 diabetes mellitus Qualifiers: Diabetes mellitus jail insulin use: with jail use Qualified Code(s): E11.65 - Type 2 diabetes mellitus with hyperglycemia
--- NOTE | 2019-10-25 10:45 | XRay Report ---
XR chest 1V portable CLINICAL HISTORY: 69 years-old Female presenting with weakness. TECHNIQUE: Portable upright AP view of the chest was obtained. COMPARISON: 10/11/2019. FINDINGS: Atherosclerosis of the aortic arch. Cardiac silhouette borderline enlarged. Minimal left basilar opac ities, unchanged. No pleural effusion or pneumothorax. [place] noted in the left humeral head. Resecti on of the distal left clavicle. Upper abdomen normal. IMPRESSION: 1. Borderline cardiomegaly. 2. Persistent minimal left basilar opacities, likely atelectasis or scarring. No new focal infiltrat e. ACT 112: Negative or not required by law. Electronically signed by: Maury Lucas M.D. 10/25/2019 10:44 AM
[2019-10-25 11:02] LABS: Hematocrit (blood only) 26.1 % (37-47); Hemoglobin 8.9 g/dL (12.0-16.0); Mean Corpuscular Hemoglobin 35.6 pg (25-34); Mean Corpuscular Hgb Conc 34.1 g/dL (32-36); Mean Corpuscular Volume 104.4 fL (80-100); RDW Coefficient of Variation 15.1 % (11.5-14.5); RDW Standard Deviation 57.7 fL (36.4-46.3); White Blood Count 3.61 K/uL (4.8-10.8)
[2019-10-25 11:06] LABS: Mean Platelet Volume 11.5 fL (7.4-10.4); Platelet Count 35 K/uL (130-400)
--- NOTE | 2019-10-25 11:13 | CT Scan Report ---
HEAD CT NONCONTRAST CT DOSE: 1915.68 mGycm HISTORY: weakness TECHNIQUE: Multiaxial CT images of the head were performed without the use of intravenous contrast. A utomated exposure control was utilized for this study. A dose lowering technique was utilized adheri ng to the principles of ALARA. Comparison: Head CT 10/11/2019. Findings: The paranasal sinuses and mastoid air cells are clear. The calvarium and skull base are int act. The ventricles and sulci are within normal limits. There is no mass, hematoma, midline shift, or acute infarct. Impression: No acute intracranial abnormality. ACT 112: Negative or not required by law. Electronically signed by: Dean Mathews M.D. 10/25/2019 11:12 AM
[2019-10-25 11:14] LABS: INR 1.3 (0.9-1.1); Prothrombin Time 13.5 Seconds (9.0-12.0)
[2019-10-25] MEDS ORDERED: LACTULOSE SYRUP 30 GM/45 ML UDP PO STA (11:21)
[2019-10-25 11:24] LABS: Alanine Aminotransferase 44 U/L (12-78); Albumin Globulin Ratio 0.4 (0.9-2); Albumin Level 1.8 gm/dl (3.4-5.0); Anion Gap 0 (3-11); Aspartate Aminotransferase 50 U/L (15-37); Bilirubin,Total 0.7 mg/dl (0.2-1); Blood Urea Nitrogen 24 mg/dl (7-18); Calcium 8.8 mg/dl (8.5-10.1); Carbon Dioxide 21 mmol/L (21-32); Chloride 115 mmol/L (98-107); Creatinine Clr Calc Pharmacy 52.9 ml/min; Est GFR (African American) 71.2; Est GFR (Non-African American) 61.5; Globulin 4.6 gm/dl (2.5-4.0); Glucose 502 mg/dl (70-99); Potassium 4.9 mmol/L (3.5-5.1); Sodium 136 mmol/L (136-145); Total Protein 6.4 gm/dl (6.4-8.2)
[2019-10-25 11:30] LABS: Alkaline Phosphatase 142 U/L (45-117); Troponin I < 0.015 ng/ml (0-0.045)
[2019-10-25] MEDS ORDERED: NovoLIN-R INSULIN PER UNIT CHARGE IV STA (11:34)
[2019-10-25 11:39] LABS: Basophils # (auto) 0.02 K/uL (0-0.2); Basophils % (auto) 0.6 %; Eosinophils # (auto) 0.09 K/uL (0-0.5); Eosinophils % (auto) 2.5 %; Lymphocytes # (auto) 0.89 K/uL (1.2-3.4); Lymphocytes % (auto) 24.7 %; Monocytes # (auto) 0.28 K/uL (0.11-0.59); Monocytes % (auto) 7.8 %; Neutrophils # (auto) 2.33 K/uL (1.4-6.5); Neutrophils % (auto) 64.4 %
[2019-10-25 11:44] LABS: Beta-Hydroxybutyrate 0.85 mg/dl (0.2-2.81)
--- NOTE | 2019-10-25 13:11 | History & Physical Report ---
Date of Service October 25, 2019 Assessment & Plan (1) Hyperglycemia due to type 2 diabetes mellitus: - Elevated BG on admission, >500. - Will consult pharmacy for BG management, will likely require insulin drip. Lantus/SSI coverage currently ordered. - Repeat A1C in the morning. (2) Acute encephalopathy: - Presented with acute confusion -- possibly related to hepatic encephalopathy vs. hyperglycemia vs. underlying UTI. - U/a pending collection; will hold IV abx at this time. - Ammonia level appears to be close to baseline at 77.2 and son reports she has been taking Lactulose as prescribed at home. Will continue Lactulose TID. - Influenza by PCR, Procalcitonin and CRP pending; has had acute cough. - Management of hyperglycemia as noted above. - CT head negative, did have recent subdural hematoma. CXR negative for PNA. - B12, B1, Folate level in the morning. (3) Lethargic: - As noted above. (4) Acute hepatic encephalopathy: - H/o liver cancer, cirrhosis. - Ammonia level 77.2, appears close to baseline. Unclear if acute confusion is related to this issue. - Continue Lactulose TID scheduled. - Continue Rifaximin 550 mg BID. (5) Subdural hematoma: - Recently admitted 10/05-10/08 for hematoma; discussed with [facility] neurology, recommended platelet transfusion. - CT head was negative on admission. - Monitor plt count, was 35K this morning. (6) Cirrhosis: - Known liver cirrhosis in setting of previous ETOH abuse. - Continue Nadolol 20 mg qPM. (7) Dehydration: - Elevated BUN noted on admission, likely related to poor PO intake. - NS at 80 cc/hr x 1 bag. - Repeat BMP in the morning. (8) Anemia: - Baseline hgb ~8-9. - Will continue to monitor CBC daily. (9) Thrombocytopenia: - Chronic thrombocytopenia in setting of liver cirrhosis; plt count 35K. - Trend CBC daily; hold pharmacologic ppx. (10) Liver cancer: - Diagnosed recently, managed as outpatient. (11) Hyperlipidemia: - Continue statin as prescribed. (12) COPD (chronic obstructive pulmonary disease): - No acute exacerbation noted. - Currently stable on room air. (13) Depression: - Continue Lexapro as prescribed. (14) Neuropathy: - Continue Gabapentin 300 mg BID. (15) GERD (gastroesophageal reflux disease): - Protonix BID. DVT ppx: SCDs; hold pharmacologic ppx due to thrombocytopenia, recent subdural hematoma. Dispo: Med/surg with tele; PT/OT, will need placement at discharge. History of Present Illness Chief Complaint: Confusion, elevated blood sugar Primary Care Provider: Laila Thakkar MD Mrs Rangel is a 69 year old female with past medical history liver cancer, liver cirrhosis, ETOH abuse, portal HTN, hepatic encephalopathy, COPD, tobacco abuse, anemia, HLD, DM who presented with acute confusion and hyperglycemia. Patient was recently admitted from 10/05-10/08 for subdural hematoma. She was discharged to [facility]; patient returned to home on Wednesday10/21/19 with home health. Her son provides the history due to increased lethargy/confusion. He reports he has had increased difficulty helping with his mother at home. She has had increased blood glucose readings; her son called the physician who recommended adding an evening Lantus dose. BG was >400 today, therefore her son brought her to the ER. He reports he has been monitoring BG routinely and using insulin as prescribed. She has also been compliant with Lactulose dose -- has had loose BMs due to medication. Is drinking fluids but has decreased appetite. Has not complained of shortness of breath or chest pain, dysuria, nausea/vomiting. ER course: CXR showed atelectasis. CT head was negative. BG was >500; she received insulin IV with improvement to 389. U/a is pending collection. Allergies Allergy/AdvReac Type Severity Reaction Status Date / Time methyl salicylate Allergy Mild RASH Verified 10/25/19 11:08 nickel Allergy Mild RASH Verified 10/25/19 11:08 zinc Allergy Mild RASH Verified 10/25/19 11:08 mint Allergy Verified 10/25/19 11:08 diphenhydramine AdvReac Intermediate BURNING Verified 10/25/19 11:08 EYES,DIZZY,BLISTERS Home Medications Home Medications Medication Instructions Recorded Confirmed Type cholecalciferol (vitamin D3) 2,000 unit PO QAM 04/13/18 10/25/19 History ferrous sulfate 325 mg PO BIDM 04/14/19 10/25/19 History lancets 30 gauge ea 04/19/19 10/04/19 History escitalopram oxalate 10 mg PO HS 06/15/19 10/25/19 History folic acid 1 mg PO QAM 06/15/19 10/25/19 History nadolol 20 mg PO QPM 06/15/19 10/25/19 History pantoprazole 40 mg PO BIDM 06/15/19 10/25/19 History atorvastatin 20 mg tablet 20 mg PO HS #90 tab 06/26/19 10/25/19 Rx lactulose 20 gm PO BID #3000 ml 07/31/19 10/25/19 Rx insulin glargine 100 unit/mL (3 See Rx Instructions .ROUTE 09/12/19 10/25/19 Rx mL) subcutaneous pen .COMPLEX #15 milliliter pen needle, diabetic 32 gauge x #100 ea 10/04/19 10/25/19 Rx " Xifaxan 550 mg PO BID 10/06/19 10/25/19 History acetaminophen [Tylenol] 650 mg PO Q4H PRN 10/06/19 10/25/19 History furosemide 20 mg PO DAILY PRN 10/06/19 10/25/19 History gabapentin 300 mg PO BID 10/06/19 10/25/19 History levofloxacin 750 mg tablet 750 mg PO DAILY 7 Days #7 tab 10/23/19 10/25/19 Rx potassium chloride 20 mEq 20 meq PO BID 10/23/19 10/25/19 History tablet,extended release Past Med/Surg History Medical History Anxiety Bronchitis (Acute) Chronic back pain Cirrhosis FOLLOWS W/ [facility], MELD score 10. COPD (chronic obstructive pulmonary disease) (Chronic) Uses recuse inhaler ~ once/month Depression Diabetes mellitus, type 2 (Chronic) IDDM Esophageal varices Per EGD 11/30/2018: Nonbleeding grade 1 and small (<5 mm) esophageal varices. Hyperlipidemia Kidney stones Liver cancer (Acute) DX 1-2 MONTHS AGO Migraine Neuropathy Osteoarthritis Pancytopenia (Acute) Poor historian Shortness of breath on exertion Skin cancer of face Sleep apnea PT UNABLE TO CONFIRM, DOES NOT USE ASSISTIVE DEVICE HS Surgical History History of arthroscopy of left shoulder History of arthroscopy of right knee History of bilateral cataract extraction History of carpal tunnel surgery of left wrist History of lithotripsy History of Mohs micrographic surgery for skin cancer History of tonsillectomy and adenoidectomy History of tooth extraction all teeth removed History of total abdominal hysterectomy and bilateral salpingo-oophorectomy S/P ureteral stent placement Status post laser lithotripsy of ureteral calculus Status post trigger finger release Family History Brother Diabetes Sister Diabetes Mother Congestive heart failure Cardiac disorder Myocardial infarction Father Stroke Other Family history non-contributory No family history of adverse response to anesthesia Denies family history of Ovarian cancer Prostate cancer Breast cancer Colorectal cancer Social History Preferred Language: Senegalese Communication Ability: Effective Visual Impairment: No Limitations Research Chemical Engineer Required: No Beliefs That Will Affect Care: None marital status: / Current Living Situation: Family Current Living Situation Comment: With son. Feels Safe at Home: Yes Smoking Status: Former smoker Tobacco Type: cigarettes ; Cigarettes Per Day: 4 PPD ; Second Hand Exposure: No ; Hx Alcohol Use: No Hx Substance Use: No Review of Systems Review of Systems: Unobtainable due to cognitive status Physical Exam Physical Exam: General: Resting comfortably HEENT: NC/AT; PERRLA with EOMI; [place] conjunctiva, MMM. No erythema of posterior pharynx Neck: Supple and nontender Cardiac: RRR Lungs: CTA bilaterally Abdomen: Bowel normoactive X 4; Nontender to palpation Extremities: Warm. No edema present Neuro: Lethargic, will open eyes and quickly respond to questions but immediately falls asleep. Skin: No rash Code Status & VTE Plan VTE Prophylaxis Plan VTE Prophylaxis will be ordered: Yes Supervising Physician Co-Signing Physician Notes Attending Attestation and Admission Note: Pt seen/examined, chart reviewed, care plan d/w BRTITNEY Nugent. I agree w/ the balbuena components of her documentation. 69yo female with T2DM, cirrhosis of the liver, COPD, ?liver mass, h/o esophageal varices, and recent admission for small SDH (resolved on imaging prior to discharge) followed by [facility] stay - presents from home with worsening confusion and hyperglycemia. Both had been present for several days but getting worse. Upon presentation her glucose was 500+. She was quite lethargic. Ammonia was in the 70s; given lactulose in the ER. PMH, PSH, allergies, meds, sochx, famhx, ros - reviewed vitals - afebrile, BP wnl gen - lethargic, dehydrated, only aroused once to tell me her "legs hurt" mouth - MM dry neck - no JVD heart - RRR, s1 s2 lungs - mild end-exp wheeze b/l, no rales abd - soft, ?mildly tender central abdomen, BS+, no hepatomegaly ext - no edema musculo - right/left knee - no effusion or synovitis; no pain with passive ROM of either hip labs - mild leukopenia (chronic) moderate-severe thrombocytopenia - worse than baseline BMP wnl except glucose albumin 1.8 AST mildly elevated alk phos mildly elevated ammonia 77 cxr - no infiltrates A/P: 1. metabolic encephalopathy - combination of hepatic encephalopathy, infectious etiology, other? Treat elevated ammonia with lactulose TID; cont rifaximin. Check u/a and urine cx. Check flu PCR. Send blood cx's. Consider empiric antibiotics. 2. uncontrolled T2DM - persistent hyperglycemia is worrisome for infection, some form of bodily stress, etc. Check crp, procal. Check blood cx's. U/a, urine cx. Glycemic consult with pharmacy. Basal-bolus insulin for now. IV fluids. 3. abdominal pain? - check lipase, obtain imaging if needed. U/a and urine cx. If w/u negative, and if ascites is present, consider diagnostic paracentesis. 4. cirrhosis of liver - appears compensated. 5. recent SDH - resolved. Aidan Booth MD PG Care Time/CCT Total # of Minutes Spent Total Time Spent with Patient: Total time spent is greater than 50% in coordination of care (as documented) at patient's floor/unit and/or counseling patient: Coding Level of Care Code 28465 Initial Inpt Care Lvl 3 Diagnoses Hyperglycemia due to type 2 diabetes mellitus E11.65; Z79.4 Diabetes mellitus security engineer insulin use: with mcfp use Acute encephalopathy G93.40 Lethargic R53.83 Acute hepatic encephalopathy K72.00 Subdural hematoma S06.5X9A Cirrhosis K74.60 Ascites presence: unspecified Hepatic cirrhosis type: unspecified hepatic cirrhosis Dehydration E86.0 Anemia D64.9 Anemia type: unspecified type Thrombocytopenia D69.6 Liver cancer C22.9 Liver malignancy type: unspecified liver malignancy Hyperlipidemia E78.2 Hyperlipidemia type: mixed hyperlipidemia COPD (chronic obstructive pulmonary disease) J44.9 COPD type: unspecified COPD Depression F32.9 Neuropathy G62.9 GERD (gastroesophageal reflux disease) K21.9 (1) Hyperglycemia due to type 2 diabetes mellitus Diabetes mellitus mcfp insulin use: with security engineer use Qualified Code(s): E11.65 - Type 2 diabetes mellitus with hyperglycemia; Z79.4 - MCC (current) use of insulin (2) Liver cancer Liver malignancy type: unspecified liver malignancy Qualified Code(s): C22.9 - Malignant neoplasm of liver, not specified as primary or secondary (3) Anemia Anemia type: unspecified type Qualified Code(s): D64.9 - Anemia, unspecified (4) Hyperlipidemia Hyperlipidemia type: mixed hyperlipidemia Qualified Code(s): E78.2 - Mixed hyperlipidemia (5) Cirrhosis Ascites presence: unspecified Hepatic cirrhosis type: unspecified hepatic cirrhosis Qualified Code(s): K74.60 - Unspecified cirrhosis of liver (6) COPD (chronic obstructive pulmonary disease) COPD type: unspecified COPD Qualified Code(s): J44.9 - Chronic obstructive pulmonary disease, unspecified
[2019-10-25] MEDS ORDERED: GLUCOSE 10 TABS/TUBE PO PRN (13:45)
[2019-10-25] MEDS ORDERED: GLUCAGON FOR INJ 1 MG VIAL SQ PRN (13:45)
[2019-10-25] MEDS ORDERED: ACETAMINOPHEN 325 MG TAB PO PRN (13:45)
[2019-10-25] MEDS ORDERED: CARBOHYDRATES FOR HYPOGLYCEMIA PO PRN (13:45)
[2019-10-25] MEDS ORDERED: ONDANSETRON INJ 2 MG/ML 2 ML VIAL IV PRN (13:45)
[2019-10-25] MEDS ORDERED: DEXTROSE 50% 50 ML SYRINGE IV PRN (13:45)
[2019-10-25] MEDS ORDERED: GLUCOSE 40% GEL 15 GM TUBE PO PRN (13:45)
[2019-10-25 13:46] LABS: Influenza A virus by PCR Neg for Influ A (Neg); Influenza B virus by PCR Neg for Influ B (Neg)
[2019-10-25] MEDS ORDERED: LACTULOSE SYRUP 20 GM/30 ML UDC PO SCH (14:00)
--- NOTE | 2019-10-25 14:00 | Electrocardiogram Report ---
Test Reason : Blood Pressure : / mmHG Vent. Rate : 059 BPM Atrial Rate : 059 BPM P-R Int : 148 ms QRS Dur : 104 ms QT Int : 444 ms P-R-T Axes : 000 044 045 degrees QTc Int : 439 ms Sinus bradycardia Otherwise normal ECG When compared with ECG of 11-OCT-2019 09:57, No significant change was found Confirmed by Clarence Jha ([id number]) on 10/25/2019 1:59:42 PM Referred By: REFERRED SELF Confirmed By:Everton Jha
[2019-10-25] MEDS ORDERED: SODIUM CHLORIDE 0.9% 1000ML 1,000 ML IV SCH (14:15)
[2019-10-25 14:33] LABS: Appearance Urine Clear (Clear); Bilirubin Urine Negative (Negative); Blood Urine 2+ (Negative); Color Urine Yellow; Glucose Urine UA 3+ (Negative); Ketones Urine Negative (Negative); Leukocyte Esterase Urine Negative (Negative); Nitrite Urine Negative (Negative); Protein Urine Negative (Negative); Urobilinogen Urine Negative (Negative)
[2019-10-25] MEDS ORDERED: PHARMACY GLYCEMIC MGMT CONSULT PRN (14:38)
[2019-10-25] MEDS ORDERED: SODIUM CHLORIDE 0.45 % 1,000 ML IV SCH (14:45)
[2019-10-25 14:56] LABS: Bacteria Urine 1+ (Negative); Epithelial Cell Urine 0-5 /lpf (0-5); Hyaline Casts Urine 0-5 /lpf (0-5)
[2019-10-25 14:57] LABS: Calcium Oxalate Crystals Urine Present (None Prsent)
[2019-10-25] MEDS ORDERED: INSULIN GLARGINE SOLOSTAR 100 UNITS/ML 3 ML PEN SC ONE (15:00)
--- NOTE | 2019-10-25 15:04 | Pharmacy Report ---
Glycemic Control Consultation - Date of Service October 25, 2019 - Scope Scope: Glycemic Pharmacist consulted for glycemic control and to write orders per [facility] inpatient glycemic control protocol. - Objective Weight: 68.4 kg Accmichealecks BSG (last 24hrs): 10/25/19 10/25/19 10/25/19 10:49 12:55 14:41 Glucose 502 H* POC Glucose 389 H* 346 H* Laboratory Data (last 24hrs): 10/25/19 10:49 Potassium 4.9 Carbon Dioxide 21 Anion Gap 0 L Creatinine 0.94 Est Cr Clr Drug Dosing 52.9 Beta-Hydroxybutyric Acd 0.85 - Recent Pertinent Medications Outpatient Anti-diabetic Regimen: * Basaglar 30 units SQ AM, 20 units SQ PM * A1c = 6.6% on 08/27/2019 Risk Factors for Insulin Resistance: * IVF: * 1/2 NSS @ 80 cc/hr * Diet: * T2DM - Assessment & Plan Assessment & Plan: ASSESSMENT: * 69 yo F admitted secondary to hyperglycemia * Patient is well known to glycemic service and most recent A1c improved to 6.6% * Random BSG was 502 mg/dL on admission, corrected Na 142 mmol/L, K 4.9 mmol/L, serum bicarb 21 mmol/L, AG 6.0 (corrected), Beta-hydroxybutyric acid 0.85 mg/dL, urine ketones negative * With no signs of acidosis, pt likely just has severe hyperglycemia possibly secondary to improper injection technique by caregiver * Started on gentle IV fluids, received 10 unit IV insulin bolus which improved hyperglycemia to 389 mg/dL --> 346 mg/dL * Will forego starting insulin infusion and manage hyperglycemia via basal bolus insulin based on current BSGs and previous admission data * Will add overnight checks at 0000 and 0400 PLAN FOR INPATIENT GLYCEMIC CONTROL: * Basal insulin * Lantus 30 units SQ x 1 * Bolus insulin * NovoLog per scale ACHS or Q6hrs while NPO * Goal Range: Low 120 mg/dL - High 150 mg/dL * Correction Factor: 25 mg/dL/unit * Nutritional / Prandial insulin per carb ratio of 1 unit per 3 grams CHO consumed * Please note that the plan above was derived based on current level of insulin resistance and hospital stress. These recommendations are appropriate for inpatient admission only. Plan of care upon discharge will need to be reassessed to avoid potential outpatient hypo/hyperglycemia. Thank you.
[2019-10-25 15:33] LABS: HCO3 VBG 20 mmol/L; PCO2 VBG 38 mmHg (38-50); PO2 VBG 34 mmHg; pH VBG 7.33 (7.36-7.41)
[2019-10-25 15:52] LABS: Oxygen Saturation VBG < 60.0 %
[2019-10-25] MEDS: INSULIN ASPART 100 UNITS/ML 3 ML PEN SC SCH ×4 (16:17→23:49)
[2019-10-25] MEDS: cefTRIAXone SODIUM 2,000 MG in DEXTROSE 5% 50 ML IV SCH (16:18)
[2019-10-25] MEDS: LACTULOSE SYRUP 30 GM/45 ML UDP PO SCH ×2 (16:18→20:57)
[2019-10-25] MEDS: FERROUS SULFATE 325 MG TAB PO SCH (16:22)
[2019-10-25] MEDS: PANTOprazole 40 MG TAB PO SCH (16:22)
[2019-10-25] MEDS: SODIUM CHLORIDE 0.45 % 1,000 ML IV SCH (17:19)
[2019-10-25] MEDS ORDERED: IOVERSOL 100ml IV PRN (18:03)
--- NOTE | 2019-10-25 18:42 | CT Scan Report ---
CT abd pelvis IV con only CT DOSE: 465.71 mGy.cm HISTORY: Pain acute pancreatitis TECHNIQUE: Multiaxial CT images of the abdomen and pelvis were performed following the use of intrave nous contrast. A dose lowering technique was utilized adhering to the principles of ALARA. COMPARISON STUDY: 10/06/2019 FINDINGS: Chronic basilar interstitial change unaltered from the prior exam. Findings of a component of the hepatic cirrhosis. Gallstones are present within the gallbladder lumen. Stable moderate splenomegaly. Upper abdominal varices unchanged. Multiple bilateral renal cysts unchanged from the prior study. No evidence for hydronephrosis. Fluid-filled colon with slight distention. This appears to be secondary to a fecal impaction. No well -defined obstructing mass. No evidence for abscess or collection. Visualized components of the pancreas are unremarkable. No evidence for pancreatitis of this exam. IMPRESSION: 1. Findings of mild hepatic cirrhosis with evidence for upper abdominal varices and splenomegaly. 2. These findings are unchanged from the prior study, with the pancreas appearing unremarkable. 3. Bilateral nephrocalcinosis as well as renal cysts with no evidence for obstruction. 4. Rectal fecal impaction with evidence for secondary mild to moderate colonic dilatation. 5. Mild body wall anasarca slightly increased from the prior exam. ACT 112: Negative or not required by law. The above report was generated using voice recognition software. It may contain grammatical, syntax or spelling errors. Electronically signed by: Torey Alonzo M.D. 10/25/2019 6:41 PM
[2019-10-25] MEDS ORDERED: POLYETHYLENE (MIRALAX) 17 GM PACK PO SCH (19:00)
--- NOTE | 2019-10-25 19:18 | History & Physical Bridge Note ---
Date of Service October 25, 2019 History & Physical Bridge Note CT abd/pelvis obtained as lipase was nearly 3000. Gallstones present, but no findings to suggest cholecystitis. Pancreas normal on CT. Fecal impaction seen. Consider RUQ u/s. Ideally should get lactulose enema for impaction but platelets in 30s; would be concerned of causing trauma then bleeding. Defer for now. u/a with ? UTI - send culture - start rocephin IV daily. Aidan Booth MD
[2019-10-25] MEDS: nadoloL 40 MG TAB PO SCH (20:57)
[2019-10-25] MEDS: RIFAXIMIN 550 MG TABLET PO SCH (21:00)
[2019-10-25] MEDS: ESCITALOPRAM OXALATE 10 MG TAB PO SCH (21:17)
[2019-10-25] MEDS: ATORVASTATIN 20 MG TAB PO SCH (21:17)
[2019-10-25] MEDS: GABAPENTIN 300 MG CAP PO SCH (21:17)
[2019-10-26] MEDS: SODIUM CHLORIDE 0.45 % 1,000 ML IV SCH ×3 (01:50→23:25)
[2019-10-26] MEDS: INSULIN ASPART 100 UNITS/ML 3 ML PEN SC SCH ×5 (04:59→20:37)
[2019-10-26 06:12] LABS: Hematocrit (blood only) 25.2 % (37-47); Hemoglobin 8.4 g/dL (12.0-16.0); Mean Corpuscular Hemoglobin 34.7 pg (25-34); Mean Corpuscular Hgb Conc 33.3 g/dL (32-36); Mean Corpuscular Volume 104.1 fL (80-100); Mean Platelet Volume 11.5 fL (7.4-10.4); Platelet Count 40 K/uL (130-400); RDW Coefficient of Variation 15.2 % (11.5-14.5); RDW Standard Deviation 57.7 fL (36.4-46.3); Red Blood Count 2.42 M/uL (4.2-5.4); White Blood Count 4.85 K/uL (4.8-10.8)
[2019-10-26 06:49] LABS: BUN Creatinine Ratio 24.9 (10-20); Calcium 8.2 mg/dl (8.5-10.1); Creatinine Clr Calc Pharmacy 64.5 ml/min; Est GFR (African American) 90.7; Est GFR (Non-African American) 78.2; Magnesium 1.6 mg/dl (1.8-2.4); Potassium 2.9 mmol/L (3.5-5.1)
[2019-10-26 07:40] LABS: Estimated Average Glucose 194 mg/dl; Hemoglobin A1C 8.4 % (4.5-5.6)
[2019-10-26] MEDS: GABAPENTIN 300 MG CAP PO SCH ×2 (08:05→20:40)
[2019-10-26] MEDS: RIFAXIMIN 550 MG TABLET PO SCH ×2 (08:06→20:40)
[2019-10-26] MEDS: FERROUS SULFATE 325 MG TAB PO SCH ×2 (08:06→16:22)
[2019-10-26] MEDS: PANTOprazole 40 MG TAB PO SCH ×2 (08:06→16:22)
[2019-10-26] MEDS: LACTULOSE SYRUP 30 GM/45 ML UDP PO SCH ×3 (08:06→20:40)
[2019-10-26 08:17] LABS: Folate (Folic Acid) > 24.00 ng/ml (>5.38); Vitamin B12 1860 pg/ml (211-911)
[2019-10-26] MEDS: INSULIN GLARGINE SOLOSTAR 100 UNITS/ML 3 ML PEN SC SCH ×2 (08:22→20:41)
--- NOTE | 2019-10-26 09:15 | Pharmacy Report ---
Pharmacy Glycemic Short Note 2 - Date of Service October 26, 2019 - Glycemic Short BSG Results (Last 24 hours): 10/25/19 10/25/19 10/25/19 10:49 12:55 14:41 Glucose 502 H* POC Glucose 389 H* 346 H* 10/25/19 10/25/19 10/25/19 16:53 16:54 20:05 Glucose POC Glucose 340 H* 334 H* 273 H 10/25/19 10/26/19 10/26/19 23:48 04:58 05:53 Glucose 127 H POC Glucose 152 H 139 H 10/26/19 07:38 Glucose POC Glucose 113 H OUTPATIENT ANTIDIABETIC REGIMEN: * Basaglar 30 units SQ AM + 20 units SQ PM * Last PCP visit from September 2019 shows evening dose was reduced to 15 units * A1c today is 8.4% * Increased from 6.6% in August 2019 ASSESSMENT: 10/26/19: * Patient's BSGs have responded well to basal-bolus insulin administration yesterday * Received 30 units Lantus + 20 units Novolog * Fasting BSG this AM is 113 mg/dL * Basal-bolus regimen will be based on current BSGs and previous admission data * Will try to maintain BID basal insulin dosing to follow outpatient regimen 10/25/19: * 69 yo F admitted secondary to hyperglycemia and confusion * Patient is well known to pharmacy glycemic services * Random BSG was 502 mg/dL on admission, corrected Na 142 mmol/L, K 4.9 mmol/L, serum bicarb 21 mmol/L, AG 6.0 (corrected), Beta-hydroxybutyric acid 0.85 mg/dL, urine ketones negative * With no signs of acidosis, pt likely just has severe hyperglycemia * Started on gentle IV fluids, received 10 unit IV insulin bolus which improved hyperglycemia to 389 mg/dL --> 346 mg/dL * Will forego starting insulin infusion and manage hyperglycemia via basal bolus insulin based on current BSGs and previous admission data * Will add overnight checks at 0000 and 0400 PLAN FOR INPATIENT GLYCEMIC CONTROL: * Basal insulin * Lantus 10 units SQ BID (for BSG < 110 mg/dL) * Lantus 15 units SQ BID (for BSG 110 - 180 mg/dL) * Lantus 20 units SQ BID (for BSG > 180 mg/dL) * Bolus insulin * NovoLog per scale ACHS or Q6hrs while NPO * ADJUSTED: Goal Range: Low 110 mg/dL - High 140 mg/dL * Correction Factor: 25 mg/dL/unit * Nutritional / Prandial insulin per carb ratio of 1 unit per 3 grams CHO consumed PLAN FOR DISCHARGE: * Increase in HbA1c may reflect improper insulin administration technique or medication non-compliance. Education may be needed for family/caregivers prior to discharge.
[2019-10-26] MEDS ORDERED: LACTULOSE 200 GM, WATER, STERILE IRRIG 700 ML, BARCODE IDENTIFIER 1 EA PR ONE (14:30)
[2019-10-26] MEDS: cefTRIAXone SODIUM 2,000 MG in DEXTROSE 5% 50 ML IV SCH (15:29)
[2019-10-26] MEDS: ESCITALOPRAM OXALATE 10 MG TAB PO SCH (20:40)
[2019-10-26] MEDS: nadoloL 40 MG TAB PO SCH (20:40)
[2019-10-26] MEDS: ATORVASTATIN 20 MG TAB PO SCH (20:40)
--- NOTE | 2019-10-26 22:23 | Hospitalist Progress Note ---
Date of Service October 26, 2019 Assessment & Plan (1) Hyperglycemia due to type 2 diabetes mellitus: - Elevated BG on admission, >500. - improved. will continue current blood sugar management. (2) Acute encephalopathy: - Presented with acute confusion -- possibly related to hepatic encephalopathy vs. hyperglycemia vs. underlying UTI. Likely related to UTI, and hyperglycemia. - On ceftriaxone as Urine appears very dirty. - Ammonia level appears to be close to baseline at 77.2 and son reports she has been taking Lactulose as prescribed at home. Will continue Lactulose TID. - Influenza by PCR, Procalcitonin and CRP pending; has had acute cough. - Management of hyperglycemia as noted above. - CT head negative, did have recent subdural hematoma. CXR negative for PNA. - B12, B1, Folate level in the morning. (3) Lethargic: - As noted above. (4) Acute hepatic encephalopathy: - H/o liver cancer, cirrhosis. - Ammonia level 77.2, appears close to baseline. - Continue Lactulose TID scheduled. - Continue Rifaximin 550 mg BID. (5) Subdural hematoma: - Recently admitted 10/05-10/08 for hematoma; discussed with [facility] neurology, recommended platelet transfusion. - CT head was negative on admission. - Monitor plt count, was 35K this morning. (6) Cirrhosis: - Known liver cirrhosis in setting of previous ETOH abuse. - Continue Nadolol 20 mg qPM. (7) Dehydration: - Elevated BUN noted on admission, likely related to poor PO intake. - NS at 80 cc/hr x 1 bag. - Repeat BMP in the morning. (8) Anemia: - Baseline hgb ~8-9. - Will continue to monitor CBC daily. (9) Thrombocytopenia: - Chronic thrombocytopenia in setting of liver cirrhosis; plt count 35K. - Trend CBC daily; hold pharmacologic ppx. Discussed with Oncology, appears to be chronic. No need for transfusion or consult at this time. (10) Liver cancer: - Diagnosed recently, managed as outpatient. (11) Hyperlipidemia: - Continue statin as prescribed. (12) COPD (chronic obstructive pulmonary disease): - No acute exacerbation noted. - Currently stable on room air. (13) Depression: - Continue Lexapro as prescribed. (14) Neuropathy: - Continue Gabapentin 300 mg BID. (15) GERD (gastroesophageal reflux disease): - Protonix BID. DVT ppx: SCDs; hold pharmacologic ppx due to thrombocytopenia, recent subdural hematoma. Dispo: Med/surg with tele; PT/OT, will need placement at discharge. Admission and Anticipated Discharge Date Admission Date: October 25, 2019 Subjective Patient is a poor historian. Does not have any significant history as she is a slow speaker. Review of Systems Review of Systems: All systems reviewed & are unremarkable except as noted in HPI & below Physical Exam Physical Exam: General: Sitting in a chair, and not oriented to place, and time HEENT: NC/AT; PERRLA with EOMI; [place] conjunctiva, MMM. No erythema of posterior pharynx Neck: Supple and nontender Cardiac: RRR Lungs: CTA bilaterally Abdomen: Bowel normoactive X 4; Nontender to palpation Extremities: Warm. No edema present Neuro: Lethargic, speaks very slowly and then Skin: No rash Results & Data Results & Data ([facility]) Vital Signs (Past 12 Hours) Vital Signs Temp Pulse Resp BP Pulse Ox 10/26/19 15:36 36.6 C 61 18 114/56 L 100 PG Care Time/CCT Total # of Minutes Spent Total Time Spent with Patient: Total time spent is greater than 50% in coordination of care (as documented) at patient's floor/unit and/or counseling patient: Coding Level of Care Code 18474 Subseq Hosp Care Lvl 3 Diagnoses Hyperglycemia due to type 2 diabetes mellitus E11.65; Z79.4 Diabetes mellitus [facility] insulin use: with [facility] use Acute encephalopathy G93.40 Lethargic R53.83 Acute hepatic encephalopathy K72.00 Subdural hematoma S06.5X9A Cirrhosis K74.60 Ascites presence: unspecified Hepatic cirrhosis type: unspecified hepatic cirrhosis Dehydration E86.0 Anemia D64.9 Anemia type: unspecified type Thrombocytopenia D69.6 Liver cancer C22.9 Liver malignancy type: unspecified liver malignancy Hyperlipidemia E78.2 Hyperlipidemia type: mixed hyperlipidemia COPD (chronic obstructive pulmonary disease) J44.9 COPD type: unspecified COPD Depression F32.9 Neuropathy G62.9 GERD (gastroesophageal reflux disease) K21.9 Time Spent (min) 35 (1) Hyperglycemia due to type 2 diabetes mellitus Diabetes mellitus [facility] insulin use: with contracts paralegal use Qualified Code(s): E11.65 - Type 2 diabetes mellitus with hyperglycemia; Z79.4 - engineering clerk (current) use of insulin (2) Liver cancer Liver malignancy type: unspecified liver malignancy Qualified Code(s): C22.9 - Malignant neoplasm of liver, not specified as primary or secondary (3) Anemia Anemia type: unspecified type Qualified Code(s): D64.9 - Anemia, unspecified (4) Hyperlipidemia Hyperlipidemia type: mixed hyperlipidemia Qualified Code(s): E78.2 - Mixed hyperlipidemia (5) Cirrhosis Ascites presence: unspecified Hepatic cirrhosis type: unspecified hepatic cirrhosis Qualified Code(s): K74.60 - Unspecified cirrhosis of liver (6) COPD (chronic obstructive pulmonary disease) COPD type: unspecified COPD Qualified Code(s): J44.9 - Chronic obstructive pulmonary disease, unspecified
[2019-10-27] MEDS: FERROUS SULFATE 325 MG TAB PO SCH ×2 (08:23→16:52)
[2019-10-27] MEDS: PANTOprazole 40 MG TAB PO SCH ×2 (08:23→16:52)
[2019-10-27] MEDS: RIFAXIMIN 550 MG TABLET PO SCH ×2 (08:24→20:51)
[2019-10-27] MEDS: LACTULOSE SYRUP 30 GM/45 ML UDP PO SCH ×3 (08:24→20:49)
[2019-10-27] MEDS: GABAPENTIN 300 MG CAP PO SCH ×2 (08:24→20:51)
[2019-10-27] MEDS: INSULIN ASPART 100 UNITS/ML 3 ML PEN SC SCH ×4 (08:24→20:51)
[2019-10-27] MEDS: INSULIN GLARGINE SOLOSTAR 100 UNITS/ML 3 ML PEN SC SCH ×2 (08:27→20:52)
--- NOTE | 2019-10-27 09:32 | Pharmacy Report ---
Pharmacy Glycemic Short Note 2 - Date of Service October 27, 2019 - Glycemic Short BSG Results (Last 24 hours): 10/26/19 10/26/19 10/26/19 11:47 16:44 16:46 POC Glucose 149 H 69 L* 68 L* 10/26/19 10/26/19 10/27/19 17:08 20:03 04:03 POC Glucose 79 103 H 86 10/27/19 07:49 POC Glucose 104 H OUTPATIENT ANTIDIABETIC REGIMEN: * Basaglar 30 units SQ AM + 20 units SQ PM * Last PCP visit from September 2019 shows evening dose was reduced to 15 units * A1c today is 8.4% * Increased from 6.6% in August 2019 ASSESSMENT: 10/27/19: * BSGs ranging 69-149 yesterday, received 62 units of insulin total, 25 units basal * Did have hypoglycemia at dinner with BSG 69 mg/dL, treated with 15 g CHO, improved to 79 mg/dL * Likely related to tight prandial insulin coverage, plan to loosen today * Fasting BSG well controlled today at 104 mg/dL 10/26/19: * 69 yo F admitted secondary to hyperglycemia and confusion * Patient is well known to pharmacy glycemic services * Patient's BSGs have responded well to basal-bolus insulin administration yesterday * Received 30 units Lantus + 20 units Novolog * Fasting BSG this AM is 113 mg/dL * Basal-bolus regimen will be based on current BSGs and previous admission data * Will try to maintain BID basal insulin dosing to follow outpatient regimen PLAN FOR INPATIENT GLYCEMIC CONTROL: * Basal insulin * Lantus 10 units SQ BID (for BSG < 110 mg/dL) * Lantus 15 units SQ BID (for BSG 110 - 180 mg/dL) * Lantus 20 units SQ BID (for BSG > 180 mg/dL) * Bolus insulin * NovoLog per scale ACHS or Q6hrs while NPO * Goal Range: Low 110 mg/dL - High 140 mg/dL * Correction Factor: 25 mg/dL/unit * LOOSENED: Nutritional / Prandial insulin per carb ratio of 1 unit per 3.5 grams CHO consumed PLAN FOR DISCHARGE: * Increase in HbA1c may reflect improper insulin administration technique or medication non-compliance. Education may be needed for family/caregivers prior to discharge.
[2019-10-27] MEDS: SODIUM CHLORIDE 0.45 % 1,000 ML IV SCH ×2 (09:38→21:48)
[2019-10-27] MEDS: POTASSIUM CHLORIDE / WTR 10 MEQ/100 ML PLCT IV SCH ×3 (10:56→13:17)
[2019-10-27] MEDS: MAGNESIUM SULFATE / D5W 1 GM/100 ML BAG IV SCH ×2 (11:24→12:22)
[2019-10-27] MEDS: POTASSIUM CHLORIDE 20 MEQ TABCR PO SCH ×2 (14:15→20:49)
[2019-10-27] MEDS: ATORVASTATIN 20 MG TAB PO SCH (20:49)
[2019-10-27] MEDS: ESCITALOPRAM OXALATE 10 MG TAB PO SCH (20:49)
[2019-10-27] MEDS: nadoloL 40 MG TAB PO SCH (20:50)
--- NOTE | 2019-10-27 22:53 | Hospitalist Progress Note ---
Date of Service October 27, 2019 Assessment & Plan (1) Hyperglycemia due to type 2 diabetes mellitus: - Blood sugars are elevated - improved. will continue current blood sugar management. (2) Acute encephalopathy: - Presented with acute confusion -- possibly related to hepatic encephalopathy vs. hyperglycemia vs. underlying UTI. -Likely confusion is due to UTI - On ceftriaxone as Urine appears marble cleaner today. - Ammonia level appears to be close to baseline at 77.2 and son reports she has been taking Lactulose as prescribed at home. Will continue Lactulose TID. - Influenza by PCR, Procalcitonin and CRP pending; has had acute cough. - Management of hyperglycemia as noted above. - CT head negative, did have recent subdural hematoma. CXR negative for PNA. - B12, B1, Folate level in the morning. (3) Lethargic: - As noted above. (4) Acute hepatic encephalopathy: - H/o liver cancer, cirrhosis. - Ammonia level 77.2, appears close to baseline. - Continue Lactulose TID scheduled. - Continue Rifaximin 550 mg BID. (5) Subdural hematoma: - Recently admitted 10/05-10/08 for hematoma; discussed with [facility], recommended platelet transfusion. - CT head was negative on admission. - Monitor plt count, was 35K this morning. (6) Cirrhosis: - Known liver cirrhosis in setting of previous ETOH abuse. - Continue Nadolol 20 mg qPM. (7) Dehydration: - Elevated BUN noted on admission, likely related to poor PO intake. - NS at 80 cc/hr x 1 bag. - Repeat BMP in the morning. (8) Anemia: - Baseline hgb ~8-9. - Will continue to monitor CBC daily. (9) Thrombocytopenia: - Chronic thrombocytopenia in setting of liver cirrhosis; plt count 35K. - Trend CBC daily; hold pharmacologic ppx. Discussed with Oncology, appears to be chronic. No need for transfusion or consult at this time. (10) Liver cancer: - Diagnosed recently, managed as outpatient. (11) Hyperlipidemia: - Continue statin as prescribed. (12) COPD (chronic obstructive pulmonary disease): - No acute exacerbation noted. - Currently stable on room air. (13) Depression: - Continue Lexapro as prescribed. (14) Neuropathy: - Continue Gabapentin 300 mg BID. (15) GERD (gastroesophageal reflux disease): - Protonix BID. DVT ppx: SCDs; hold pharmacologic ppx due to thrombocytopenia, recent subdural hematoma. Dispo: Med/surg with tele; PT/OT, will need placement at discharge. Admission and Anticipated Discharge Date Admission Date: October 25, 2019 Subjective Patient continues to be a poor historian. Does not have any complaints. She opens her eyes and then closes them. Review of Systems Review of Systems: All systems reviewed & are unremarkable except as noted in HPI & below Physical Exam Physical Exam: General: Sitting in a chair, and not oriented to place, and time HEENT: NC/AT; PERRLA with EOMI; [place] conjunctiva, MMM. No erythema of posterior pharynx Neck: Supple and nontender Cardiac: RRR Lungs: CTA bilaterally Abdomen: Bowel normoactive X 4; Nontender to palpation Extremities: Warm. No edema present Neuro: Lethargic, speaks very slowly and then closes her eyes. Skin: No rash Results & Data Results & Data ([facility]) Vital Signs (Past 12 Hours) Vital Signs Temp Pulse Resp BP Pulse Ox 10/27/19 19:14 36.6 C 65 19 120/54 L 96 10/27/19 15:19 36.6 C 90 18 128/62 99 PG Care Time/CCT Total # of Minutes Spent Total Time Spent with Patient: Total time spent is greater than 50% in coordination of care (as documented) at patient's floor/unit and/or counseling patient: Coding Level of Care Code 32041 Subseq Hosp Care Lvl 2 Diagnoses Hyperglycemia due to type 2 diabetes mellitus E11.65; Z79.4 Diabetes mellitus dual rate supervisor insulin use: with fpc use Acute encephalopathy G93.40 Lethargic R53.83 Acute hepatic encephalopathy K72.00 Subdural hematoma S06.5X9A Cirrhosis K74.60 Ascites presence: unspecified Hepatic cirrhosis type: unspecified hepatic cirrhosis Dehydration E86.0 Anemia D64.9 Anemia type: unspecified type Thrombocytopenia D69.6 Liver cancer C22.9 Liver malignancy type: unspecified liver malignancy Hyperlipidemia E78.2 Hyperlipidemia type: mixed hyperlipidemia COPD (chronic obstructive pulmonary disease) J44.9 COPD type: unspecified COPD Depression F32.9 Neuropathy G62.9 GERD (gastroesophageal reflux disease) K21.9 Time Spent (min) 25 (1) Hyperglycemia due to type 2 diabetes mellitus Diabetes mellitus dual rate supervisor insulin use: with fpc use Qualified Code(s): E11.65 - Type 2 diabetes mellitus with hyperglycemia; Z79.4 - correction (current) use of insulin (2) Liver cancer Liver malignancy type: unspecified liver malignancy Qualified Code(s): C22.9 - Malignant neoplasm of liver, not specified as primary or secondary (3) Anemia Anemia type: unspecified type Qualified Code(s): D64.9 - Anemia, unspecified (4) Hyperlipidemia Hyperlipidemia type: mixed hyperlipidemia Qualified Code(s): E78.2 - Mixed hyperlipidemia (5) Cirrhosis Ascites presence: unspecified Hepatic cirrhosis type: unspecified hepatic cirrhosis Qualified Code(s): K74.60 - Unspecified cirrhosis of liver (6) COPD (chronic obstructive pulmonary disease) COPD type: unspecified COPD Qualified Code(s): J44.9 - Chronic obstructive pulmonary disease, unspecified
[2019-10-28] MEDS: SODIUM CHLORIDE 0.45 % 1,000 ML IV SCH ×2 (07:49→16:55)
[2019-10-28] MEDS: POTASSIUM CHLORIDE 20 MEQ TABCR PO SCH ×3 (07:49→21:07)
[2019-10-28] MEDS: FERROUS SULFATE 325 MG TAB PO SCH ×2 (07:50→16:55)
[2019-10-28] MEDS: GABAPENTIN 300 MG CAP PO SCH ×2 (07:50→21:06)
[2019-10-28] MEDS: LACTULOSE SYRUP 30 GM/45 ML UDP PO SCH ×3 (07:50→21:08)
[2019-10-28] MEDS: RIFAXIMIN 550 MG TABLET PO SCH ×2 (07:50→21:07)
[2019-10-28] MEDS: PANTOprazole 40 MG TAB PO SCH ×2 (07:50→16:55)
[2019-10-28] MEDS: INSULIN ASPART 100 UNITS/ML 3 ML PEN SC SCH ×4 (07:53→21:08)
[2019-10-28] MEDS: INSULIN GLARGINE SOLOSTAR 100 UNITS/ML 3 ML PEN SC SCH ×2 (07:54→21:08)
--- NOTE | 2019-10-28 11:14 | Pharmacy Report ---
Glycemic Control Progress Note - Date of Service October 28, 2019 - Scope Glycemic Pharmacist consulted for glycemic control to write orders per [facility] inpatient glycemic control protocol. - Objective Accuchecks BSG(last 24 hours):: 10/27/19 10/27/19 10/27/19 11:38 16:29 20:01 POC Glucose 195 H 186 H 229 H 10/28/19 07:27 POC Glucose 261 H HbA1c:: Hemoglobin A1c 8.4 % (4.5-5.6) H 10/26/19 05:53 - Recent Pertinent Medications The patient is currently receiving: * Basal insulin: Lantus 10-20 units every 12 hours * Correctional Insulin: Novolog Correction per scale ACHS Goal Range: Low 110 mg/dL - High 140 mg/dL Correction Factor: 25 mg/dL/unit * Prandial insulin: Per carb ratio of 1 unit per 3.5 grams CHO consumed - Outpatient Anti-Diabetic Meds Basaglar 30 units in the morning and 20 units in the PM - Assessment & Plan ASSESSMENT: * See progress note from 10/25/2019 for more background info, in short: * Pt receiving SQ basal bolus insulin regimen for hyperglycemia secondary to baseline DM (outpatient regimen on hold). Patient currently on Rocephin. * Patient is currently receiving an average of 71 units of insulin per day * 30 units of basal insulin * 41 units of prandial/correctional insulin * BSGs ranging 104 - 229 mg/dl over the past 24hrs * Changes needed to insulin regimen: * AM Fasting BSG = 261 mg/dl. This is above goal range for patient based on inpatient targets and co-morbidities. Uncertain where this fasting BSG came from considering yesterday's fasting was 104 mg/dL. Patient received 5 more units of basal yesterday too. Plan a slight reduction in basal to 14 units SQ BID -- perhaps constantly changing basal doses is causing an issue therefore fix dose. * Post-prandial BSGs trended upwards significantly yesterday. It appears that carbohydrate ratio of 3.5 is not enough BUT patient had a low on 10/26/2019 with a carbohydrate ratio of 3. See how fixed basal rate works for now. CF is most definitely okay. * Total daily dose = 65-70 units. PLAN FOR INPATIENT GLYCEMIC CONTROL: * Starting Lantus 14 units SQ BID * Continuing correction factor of 25 mg/dl/unit * Continuing carb ratio of 1 unit per 3.5 grams CHO consumed * Continuing goal range of Low 110 mg/dL - High 140 mg/dL * Please note that the plan above was derived based on current level of insulin resistance and hospital stress. These recommendations are appropriate for inpatient admission only. Plan of care upon discharge will need to be reassessed to avoid potential outpatient hypo/hyperglycemia. Thank you.
[2019-10-28] MEDS ORDERED: INSULIN GLARGINE SOLOSTAR 100 UNITS/ML 3 ML PEN SC ONE (12:30)
[2019-10-28 16:50] LABS: Hematocrit (blood only) 25.2 % (37-47); Hemoglobin 8.5 g/dL (12.0-16.0); Mean Corpuscular Hemoglobin 35.4 pg (25-34); Mean Corpuscular Hgb Conc 33.7 g/dL (32-36); RDW Coefficient of Variation 15.9 % (11.5-14.5); RDW Standard Deviation 61.4 fL (36.4-46.3); White Blood Count 4.38 K/uL (4.8-10.8)
[2019-10-28 16:51] LABS: Mean Platelet Volume 10.5 fL (7.4-10.4); Platelet Count 39 K/uL (130-400)
[2019-10-28 17:12] LABS: Basophils # (auto) 0.03 K/uL (0-0.2); Basophils % (auto) 0.7 %; Eosinophils # (auto) 0.19 K/uL (0-0.5); Eosinophils % (auto) 4.3 %; Giant Platelets 1+; Lymphocytes # (auto) 1.13 K/uL (1.2-3.4); Lymphocytes % (auto) 25.8 %; Monocytes # (auto) 0.52 K/uL (0.11-0.59); Monocytes % (auto) 11.9 %; Neutrophils # (auto) 2.51 K/uL (1.4-6.5); Neutrophils % (auto) 57.3 %
[2019-10-28 17:17] LABS: Albumin Level 1.7 gm/dl (3.4-5.0); BUN Creatinine Ratio 19.9 (10-20); Bilirubin Direct 0.3 mg/dl (0-0.2); Bilirubin,Total 0.6 mg/dl (0.2-1); Creatinine Clr Calc Pharmacy 58.4 ml/min; Est GFR (African American) 80.5; Est GFR (Non-African American) 69.4; Magnesium 1.8 mg/dl (1.8-2.4); Potassium 3.5 mmol/L (3.5-5.1)
[2019-10-28] MEDS: ESCITALOPRAM OXALATE 10 MG TAB PO SCH (21:06)
[2019-10-28] MEDS: nadoloL 40 MG TAB PO SCH (21:06)
[2019-10-28] MEDS: ATORVASTATIN 20 MG TAB PO SCH (21:08)
--- NOTE | 2019-10-28 22:44 | Hospitalist Progress Note ---
Date of Service October 28, 2019 Assessment & Plan (1) Hyperglycemia due to type 2 diabetes mellitus: - Blood sugars are elevated - titrating her insulin. will continue current blood sugar management. (2) Acute encephalopathy: - Presented with acute confusion -- possibly related to hepatic encephalopathy vs. hyperglycemia vs. underlying UTI. -Likely confusion is due to UTI - On ceftriaxone as Urine appears basin cleaner today. Cultures were unable to obtain sensitivities as multiple organisms were noted. - Ammonia level appears to be close to baseline at 68 -Son reports she has been taking Lactulose as prescribed at home. Will continue Lactulose TID. -Son updated on 10/27 - Influenza by PCR, Procalcitonin and CRP pending; has had acute cough. - Management of hyperglycemia as noted above. - CT head negative, did have recent subdural hematoma. CXR negative for PNA. - B12, B1, Folate level in the morning. -Given that patient is improving, discharge may be completed in 1-2 days. -may need rehab. (3) Lethargic: - As noted above. (4) Acute hepatic encephalopathy: - H/o liver cancer, cirrhosis. - Ammonia level 77.2, appears close to baseline. - Continue Lactulose TID scheduled. - Continue Rifaximin 550 mg BID. (5) Subdural hematoma: - Recently admitted 10/05-10/08 for hematoma; - CT head was negative on admission. - Monitor plt count. However this is chronic. -d/w onc, will hold off further transfusion. As no active bleeding. Patient has splenomegaly which is leading to platelet sequestration. (6) Cirrhosis: - Known liver cirrhosis in setting of previous ETOH abuse. - Continue Nadolol 20 mg qPM. (7) Dehydration: resolved. (8) Anemia: - Baseline hgb ~8-9. - Will continue to monitor CBC daily. (9) Thrombocytopenia: - Chronic thrombocytopenia in setting of liver cirrhosis; plt count 35K. - Trend CBC daily; hold pharmacologic ppx. Discussed with Oncology, appears to be chronic. No need for transfusion or consult at this time. (10) Liver cancer: - Diagnosed recently, managed as outpatient. (11) Hyperlipidemia: - Continue statin as prescribed. (12) COPD (chronic obstructive pulmonary disease): - No acute exacerbation noted. - Currently stable on room air. (13) Depression: - Continue Lexapro as prescribed. (14) Neuropathy: - Continue Gabapentin 300 mg BID. (15) GERD (gastroesophageal reflux disease): - Protonix BID. DVT ppx: SCDs; hold pharmacologic ppx due to thrombocytopenia, recent subdural hematoma. Dispo: Med/surg with tele; PT/OT, will need placement at discharge. Admission and Anticipated Discharge Date Admission Date: October 25, 2019 Subjective Patient is able to hold a conversation. Eyes are now open. Patient states she likes the food here at the hospital. She states she feels less weak. Review of Systems Review of Systems: All systems reviewed & are unremarkable except as noted in HPI & below Physical Exam Physical Exam: General: Sitting in a chair, and not oriented to place, and time HEENT: NC/AT; PERRLA with EOMI; [place] conjunctiva, MMM. No erythema of posterior pharynx Neck: Supple and nontender Cardiac: RRR Lungs: CTA bilaterally Abdomen: Bowel normoactive X 4; Nontender to palpation Extremities: Warm. No edema present Neuro: AA0 x 2, person and place. Skin: No rash Results & Data Results & Data ([facility]) Vital Signs (Past 12 Hours) Vital Signs Temp Pulse Resp BP Pulse Ox 10/28/19 15:38 36.7 C 63 18 120/53 L 99 PG Care Time/CCT Total # of Minutes Spent Total Time Spent with Patient: Total time spent is greater than 50% in coordination of care (as documented) at patient's floor/unit and/or counseling patient: Coding Level of Care Code 15264 Subseq Hosp Care Lvl 3 Diagnoses Hyperglycemia due to type 2 diabetes mellitus E11.65; Z79.4 Diabetes mellitus halfway insulin use: with terminal superintendent use Acute encephalopathy G93.40 Lethargic R53.83 Acute hepatic encephalopathy K72.00 Subdural hematoma S06.5X9A Cirrhosis K74.60 Ascites presence: unspecified Hepatic cirrhosis type: unspecified hepatic cirrhosis Dehydration E86.0 Anemia D64.9 Anemia type: unspecified type Thrombocytopenia D69.6 Liver cancer C22.9 Liver malignancy type: unspecified liver malignancy Hyperlipidemia E78.2 Hyperlipidemia type: mixed hyperlipidemia COPD (chronic obstructive pulmonary disease) J44.9 COPD type: unspecified COPD Depression F32.9 Neuropathy G62.9 GERD (gastroesophageal reflux disease) K21.9 Time Spent (min) 35 Comment updated son on phone (1) Hyperglycemia due to type 2 diabetes mellitus Diabetes mellitus terminal superintendent insulin use: with halfway use Qualified Code(s): E11.65 - Type 2 diabetes mellitus with hyperglycemia; Z79.4 - parts counterman (current) use of insulin (2) Liver cancer Liver malignancy type: unspecified liver malignancy Qualified Code(s): C22.9 - Malignant neoplasm of liver, not specified as primary or secondary (3) Anemia Anemia type: unspecified type Qualified Code(s): D64.9 - Anemia, unspecified (4) Hyperlipidemia Hyperlipidemia type: mixed hyperlipidemia Qualified Code(s): E78.2 - Mixed hyperlipidemia (5) Cirrhosis Ascites presence: unspecified Hepatic cirrhosis type: unspecified hepatic cirrhosis Qualified Code(s): K74.60 - Unspecified cirrhosis of liver (6) COPD (chronic obstructive pulmonary disease) COPD type: unspecified COPD Qualified Code(s): J44.9 - Chronic obstructive pulmonary disease, unspecified
[2019-10-29] MEDS: SODIUM CHLORIDE 0.45 % 1,000 ML IV SCH (03:41)
[2019-10-29] MEDS: INSULIN ASPART 100 UNITS/ML 3 ML PEN SC SCH ×4 (08:14→20:35)
[2019-10-29] MEDS: INSULIN GLARGINE SOLOSTAR 100 UNITS/ML 3 ML PEN SC SCH ×2 (08:15→20:32)
[2019-10-29] MEDS: RIFAXIMIN 550 MG TABLET PO SCH ×2 (08:15→20:34)
[2019-10-29] MEDS: LACTULOSE SYRUP 30 GM/45 ML UDP PO SCH ×2 (08:15→13:08)
[2019-10-29] MEDS: GABAPENTIN 300 MG CAP PO SCH ×2 (08:15→20:33)
[2019-10-29] MEDS: POTASSIUM CHLORIDE 20 MEQ TABCR PO SCH ×3 (08:15→20:34)
[2019-10-29] MEDS: FERROUS SULFATE 325 MG TAB PO SCH ×2 (08:15→17:36)
[2019-10-29] MEDS: PANTOprazole 40 MG TAB PO SCH ×2 (08:15→17:36)
--- NOTE | 2019-10-29 08:56 | Pharmacy Report ---
Glycemic Control Progress Note - Date of Service October 29, 2019 - Scope Glycemic Pharmacist consulted for glycemic control to write orders per [facility] inpatient glycemic control protocol. - Objective Accuchecks BSG(last 24 hours):: 10/28/19 10/28/19 10/28/19 11:27 11:28 16:29 Glucose POC Glucose 355 H* 339 H* 227 H 10/28/19 10/28/19 10/29/19 16:41 20:26 07:22 Glucose 219 H POC Glucose 218 H 118 H HbA1c:: Hemoglobin A1c 8.4 % (4.5-5.6) H 10/26/19 05:53 - Recent Pertinent Medications The patient is currently receiving: * Basal insulin: Lantus 14 units every 12 hours (extra 5 units at lunchtime) * Correctional Insulin: Novolog Correction per scale ACHS Goal Range: Low 110 mg/dL - High 140 mg/dL Correction Factor: 25 mg/dL/unit * Prandial insulin: Per carb ratio of 1 unit per 3 grams CHO consumed - Outpatient Anti-Diabetic Meds Basalgar 30 units in the morning and 20 units in the evening - Assessment & Plan ASSESSMENT: * See progress note from 10/25/2019 for more background info, in short: * Pt receiving SQ basal bolus insulin regimen for hyperglycemia secondary to baseline DM (outpatient regimen on hold). * Patient is currently receiving an average of 95 units of insulin per day * 33 units of basal insulin * 62 units of prandial/correctional insulin * BSGs ranging 218 - 339 mg/dl over the past 24hrs * Changes needed to insulin regimen: * AM Fasting BSG = 118 mg/dl. This is in goal range for patient based on inpatient targets and co-morbidities. Uncertain why patient's BSGs were so very elevated yesterday... perhaps from receiving only 25 units of basal on 10/25? Continue with 30 units of Lantus per day. May consider titrating upwards if fastings trend upwards. Believe that patient requires at least 30 units of Lantus per day. * Post-prandial BSGs trended appropriately yesterday. Had tightened CR yesterday back to 3. Continue. * Total daily dose = ~70 units. PLAN FOR INPATIENT GLYCEMIC CONTROL: * INCREASING Lantus to 15 units SQ BID * Continuing correction factor of 25 mg/dl/unit * Continuing carb ratio of 1 unit per 3 grams CHO consumed * Continuing goal range of Low 110 mg/dL - High 140 mg/dL RECOMMENDATIONS FOR DISCHARGE: * Continue home regimen as long as does not have hypoglycemia at home. * HbA1C may not be entirely accurate in this patient. Recommend monitoring BSG control through a log. * Recommend follow-up with Bo Gonzalez PharmD for glycemic control at PCP office. Thank you.
[2019-10-29 09:09] LABS: Hematocrit (blood only) 26.9 % (37-47); Hemoglobin 9.1 g/dL (12.0-16.0); Mean Corpuscular Hemoglobin 35.7 pg (25-34); Mean Corpuscular Hgb Conc 33.8 g/dL (32-36); Mean Corpuscular Volume 105.5 fL (80-100); Mean Platelet Volume 11.3 fL (7.4-10.4); Platelet Count 50 K/uL (130-400); RDW Coefficient of Variation 15.8 % (11.5-14.5); RDW Standard Deviation 61.9 fL (36.4-46.3); Red Blood Count 2.55 M/uL (4.2-5.4); White Blood Count 4.57 K/uL (4.8-10.8)
[2019-10-29 09:32] LABS: Albumin Level 1.7 gm/dl (3.4-5.0); BUN Creatinine Ratio 19.8 (10-20); Bilirubin Direct 0.3 mg/dl (0-0.2); Calcium 7.8 mg/dl (8.5-10.1); Creatinine Clr Calc Pharmacy 68.9 ml/min; Est GFR (African American) 98.3; Est GFR (Non-African American) 84.9; Magnesium 1.6 mg/dl (1.8-2.4); Potassium 3.6 mmol/L (3.5-5.1)
[2019-10-29 09:35] LABS: Bilirubin,Total 0.7 mg/dl (0.2-1); Total Protein 6.2 gm/dl (6.4-8.2)
[2019-10-29 09:41] LABS: Basophils # (auto) 0.02 K/uL (0-0.2); Basophils % (auto) 0.4 %; Echinocytes 2+; Eosinophils # (auto) 0.25 K/uL (0-0.5); Eosinophils % (auto) 5.5 %; Immature Granulocytes # (auto) 0.01 K/uL (0.00-0.02); Immature Granulocytes % (auto) 0.2 %; Lymphocytes # (auto) 1.11 K/uL (1.2-3.4); Lymphocytes % (auto) 24.3 %; Monocytes % (auto) 10.9 %; Neutrophils # (auto) 2.68 K/uL (1.4-6.5); Neutrophils % (auto) 58.7 %
[2019-10-29] MEDS: MAGNESIUM SULFATE / D5W 1 GM/100 ML BAG IV SCH ×2 (13:07→14:05)
--- NOTE | 2019-10-29 16:08 | Hospitalist Progress Note ---
Date of Service October 29, 2019 Assessment & Plan (1) Acute encephalopathy: - Presented with acute confusion -- likely was related to hepatic encephalopathy, hyperglycemia, fecal impaction, and dehydration -had been taking lactulose at home as per son, but unclear if having adequate BMs at home -Ammonia level elevated on admission and now slightly lower -Ur cx with mixed organisms, UTI ruled out. Afebrile, no other signs/symptoms of infection -Flu neg, Procalcitonin neg -CXR left basilar atelectasis -CT abd/pel with rectal fecal impaction, cirrhosis, gallstones, mod splenomegaly, no pancreatitis -CT head negative, did have recent subdural hematoma which is now resolved B12, folate normal, Vit B1 still pending - Management of hyperglycemia as noted below-now much improved -was hydrated with IVFs for many days--> dcd IVFs today -now needs rehab placement (2) Hyperglycemia due to type 2 diabetes mellitus: - with hyperglycemia to the 500s on admission Not sure if this was due to mild pancreatitis given elevated lipase on admission however no pancreatitis on imaging and no clear abd pain on admission. Contributed to dehydration and metabolic encephalopathy on admission Lantus home dose is 30units qAM and 20units qPM -Pharmacy managing and now glucose improved but continues to need better control--> increase today to Lantus 15 units bid and continue SSI qachs (3) Acute hepatic encephalopathy: - H/o cirrhosis secondary to VELEZ, possible HCC on MRI liver 11/2018 at [place], has not had f/u MRI liver since then due to multiple hospitalizations since last GI visit locally with [facility] 07/2019 -Improved now with increased lacutolose dose here to tid -with numerous BMs--> will decrease back to lactulose bid dosing (home dose) - Continue Rifaximin 550 mg BID. -f/u with [facility] after discharge (4) Subdural hematoma: - Recently admitted 10/05-10/08 for hematoma and then went to rehab, then home. Was transfused plts at that time - CT head was negative on admission. - Monitor plt count. However this is chronic. (5) Cirrhosis: - Known liver cirrhosis as above - Continue Nadolol 20 mg qPM. -continue rifaximin, lactulose -f/u as outpt with GI (6) Dehydration: resolved, as above (7) Anemia: - Baseline hgb ~8-9. STable -monitor CBC periodically With a h/o adenoma on colonoscopy in 2014, needs repeat colonoscopy 2020 has known varices no active bleeding (8) Thrombocytopenia: - Chronic thrombocytopenia in setting of liver cirrhosis; plt count 35K--> 50k today. --hold pharmacologic ppx. -appears to be chronic, secondary to splenomegaly, cirrhosis No need for transfusion at this time (9) Hyperlipidemia: - Continue statin as prescribed. (10) COPD (chronic obstructive pulmonary disease): - No acute exacerbation noted. - Currently stable on room air. (11) Depression: - Continue Lexapro as prescribed. (12) Neuropathy: - Continue Gabapentin 300 mg BID. (13) Metabolic acidosis: HCO3 consistently 18, non-anion gap Likely due to loose stools from lactulose -decrease lactulose to bid dosing -follow BMP in AM (14) Hypomagnesemia: could be due to loose stools/GI losses -replace with IV magnesium (15) Hypokalemia: chronic, is on po KCl at home, could be due to GI losses and hypomagnesemia -replace po follow BMP, Mag levels in AM (16) Elevated lipase: elevated on admission and trending downward, no abd pains and no pancreatitis on imaging down to 796 today nonspecific elevation no need to continue to follow at this point (17) GERD (gastroesophageal reflux disease): - Protonix BID. DVT ppx: SCDs; hold pharmacologic ppx due to thrombocytopenia, recent subdural hematoma. Dispo: Med/surg -continued stay; PT/OT, will need placement at discharge likely on Wednesday Admission and Anticipated Discharge Date Admission Date: October 25, 2019 Anticipated date of discharge: 10/30/19 Subjective Pt denies any complaints. She is eating and moving her bowels frequently, urinating. Denies chest pain or SOB, no abd pain. Knows where she is, the year, and says it's October (close). Discussed her care with her son Emir on the phone Review of Systems Review of Systems: All systems reviewed & are unremarkable except as noted in HPI & below Physical Exam Constitutional: + ill appearing (chronically ill-appearing); no acute distress Eyes: + anicteric sclerae Neck: trachea midline, no thyromegaly Respiratory: normal respiratory effort Auscultation: + crackles (mild bibasilar, clear with deep inspiration); no diminished lung sounds, no rhonchi and no wheezes Cardiovascular: Rate/Rhythm: regular rate and regular rhythm Heart Sounds: no murmur Extremities: + edema (1+ pitting edema lower ext w/ chronic venous stasis changes) Chest (Breasts): Chest: normal inspection of chest Gastrointestinal (Abdomen): Inspection/Auscultation: + abdomen distended (mild) and normal bowel sounds Percussion/Palpation: abdomen soft; abdomen nontender and no guarding Musculoskeletal: Extremities: no cyanosis and no clubbing Skin: no rashes, warm and dry Neurologic: moves all extremities and awake; no focal motor deficits Psychiatric: Orientation: alert, oriented to person, oriented to place, oriented to time (year and close on Month (October)) and cooperative Lymphatic: no lymphedema Results & Data Results & Data ([facility]) Vital Signs (Past 12 Hours) Vital Signs Temp Pulse Resp BP Pulse Ox 10/29/19 15:26 36.4 C L 60 18 102/56 L 100 10/29/19 07:20 36.5 C 68 18 117/54 L 100 Laboratory Results 10/29/19 10/29/19 10/29/19 Range/Units 10:50 08:53 08:53 WBC 4.57 L (4.8-10.8) K/uL RBC 2.55 L (4.2-5.4) M/uL Hgb 9.1 L (12.0-16.0) g/dL Hct 26.9 L (37-47) % MCV 105.5 H (80-100) fL MCH 35.7 H (25-34) pg MCHC 33.8 (32-36) g/dL RDW Std Deviation 61.9 H (36.4-46.3) fL RDW Coeff of Chloe 15.8 H (11.5-14.5) % Plt Count 50 L (130-400) K/uL MPV 11.3 H (7.4-10.4) fL Immature Gran % (Auto) 0.2 % Neut % (Auto) 58.7 % Lymph % (Auto) 24.3 % [place] % (Auto) 10.9 % Eos % (Auto) 5.5 % Baso % (Auto) 0.4 % Immature Gran # (Auto) 0.01 (0.00-0.02) K/uL Neut # (Auto) 2.68 (1.4-6.5) K/uL Lymph # (Auto) 1.11 L (1.2-3.4) K/uL [place] # (Auto) 0.50 (0.11-0.59) K/uL Eos # (Auto) 0.25 (0-0.5) K/uL Baso # (Auto) 0.02 (0-0.2) K/uL Giant Platelets Echinocytes 2+ Sodium 143 (136-145) mmol/L Potassium 3.6 (3.5-5.1) mmol/L Chloride 122 H (98-107) mmol/L Carbon Dioxide 18 L (21-32) mmol/L Anion Gap 3.0 (3-11) BUN 14 (7-18) mg/dl Creatinine 0.72 (0.6-1.2) mg/dl Est Cr Clr Drug Dosing 68.9 ml/min Est GFR ( Amer) 98.3 Est GFR (Non-Af Amer) 84.9 BUN/Creatinine Ratio 19.8 (10-20) Glucose 149 H (70-99) mg/dl POC Glucose 230 H (70-99) mg/dl Calcium 7.8 L (8.5-10.1) mg/dl Magnesium 1.6 L (1.8-2.4) mg/dl Total Bilirubin 0.7 (0.2-1) mg/dl Direct Bilirubin 0.3 H (0-0.2) mg/dl AST 69 H (15-37) U/L ALT 52 (12-78) U/L Alkaline Phosphatase 158 H (45-117) U/L Ammonia (11-32) umol/L Total Protein 6.2 L (6.4-8.2) gm/dl Albumin 1.7 L (3.4-5.0) gm/dl Lipase 850 H (73-393) U/L Vitamin B1 (8-30) nmol/L 10/29/19 10/28/19 10/28/19 Range/Units 07:22 20:26 16:41 WBC (4.8-10.8) K/uL RBC (4.2-5.4) M/uL Hgb (12.0-16.0) g/dL Hct (37-47) % MCV (80-100) fL MCH (25-34) pg MCHC (32-36) g/dL RDW Std Deviation (36.4-46.3) fL RDW Coeff of Chloe (11.5-14.5) % Plt Count (130-400) K/uL MPV (7.4-10.4) fL Immature Gran % (Auto) % Neut % (Auto) % Lymph % (Auto) % [place] % (Auto) % Eos % (Auto) % Baso % (Auto) % Immature Gran # (Auto) (0.00-0.02) K/uL Neut # (Auto) (1.4-6.5) K/uL Lymph # (Auto) (1.2-3.4) K/uL Berg[place] # (Auto) (0.11-0.59) K/uL Eos # (Auto) (0-0.5) K/uL Baso # (Auto) (0-0.2) K/uL Giant Platelets Echinocytes Sodium (136-145) mmol/L Potassium (3.5-5.1) mmol/L Chloride (98-107) mmol/L Carbon Dioxide (21-32) mmol/L Anion Gap (3-11) BUN (7-18) mg/dl Creatinine (0.6-1.2) mg/dl Est Cr Clr Drug Dosing ml/min Est GFR ( Amer) Est GFR (Non-Af Amer) BUN/Creatinine Ratio (10-20) Glucose (70-99) mg/dl POC Glucose 118 H 218 H (70-99) mg/dl Calcium (8.5-10.1) mg/dl Magnesium (1.8-2.4) mg/dl Total Bilirubin (0.2-1) mg/dl Direct Bilirubin (0-0.2) mg/dl AST (15-37) U/L ALT (12-78) U/L Alkaline Phosphatase (45-117) U/L Ammonia 68.0 H (11-32) umol/L Total Protein (6.4-8.2) gm/dl Albumin (3.4-5.0) gm/dl Lipase (73-393) U/L Vitamin B1 (8-30) nmol/L 10/28/19 10/28/19 10/28/19 Range/Units 16:41 16:41 16:29 WBC 4.38 L (4.8-10.8) K/uL RBC 2.40 L (4.2-5.4) M/uL Hgb 8.5 L (12.0-16.0) g/dL Hct 25.2 L (37-47) % MCV 105.0 H (80-100) fL MCH 35.4 H (25-34) pg MCHC 33.7 (32-36) g/dL RDW Std Deviation 61.4 H (36.4-46.3) fL RDW Coeff of Chloe 15.9 H (11.5-14.5) % Plt Count 39 L (130-400) K/uL MPV 10.5 H (7.4-10.4) fL Immature Gran % (Auto) 0.0 % Neut % (Auto) 57.3 % Lymph % (Auto) 25.8 % [place] % (Auto) 11.9 % Eos % (Auto) 4.3 % Baso % (Auto) 0.7 % Immature Gran # (Auto) 0.00 (0.00-0.02) K/uL Neut # (Auto) 2.51 (1.4-6.5) K/uL Lymph # (Auto) 1.13 L (1.2-3.4) K/uL [place] # (Auto) 0.52 (0.11-0.59) K/uL Eos # (Auto) 0.19 (0-0.5) K/uL Baso # (Auto) 0.03 (0-0.2) K/uL Giant Platelets 1+ Echinocytes Sodium 141 (136-145) mmol/L Potassium 3.5 (3.5-5.1) mmol/L Chloride 122 H (98-107) mmol/L Carbon Dioxide 18 L (21-32) mmol/L Anion Gap 1.0 L (3-11) BUN 17 (7-18) mg/dl Creatinine 0.85 (0.6-1.2) mg/dl Est Cr Clr Drug Dosing 58.4 ml/min Est GFR ( Amer) 80.5 Est GFR (Non-Af Amer) 69.4 BUN/Creatinine Ratio 19.9 (10-20) Glucose 219 H (70-99) mg/dl POC Glucose 227 H (70-99) mg/dl Calcium 8.0 L (8.5-10.1) mg/dl Magnesium 1.8 (1.8-2.4) mg/dl Total Bilirubin 0.6 (0.2-1) mg/dl Direct Bilirubin 0.3 H (0-0.2) mg/dl AST 76 H (15-37) U/L ALT 53 (12-78) U/L Alkaline Phosphatase 155 H (45-117) U/L Ammonia (11-32) umol/L Total Protein 6.0 L (6.4-8.2) gm/dl Albumin 1.7 L (3.4-5.0) gm/dl Lipase 796 H (73-393) U/L Vitamin B1 (8-30) nmol/L 10/26/19 Range/Units 05:53 WBC (4.8-10.8) K/uL RBC (4.2-5.4) M/uL Hgb (12.0-16.0) g/dL Hct (37-47) % MCV (80-100) fL MCH (25-34) pg MCHC (32-36) g/dL RDW Std Deviation (36.4-46.3) fL RDW Coeff of Chloe (11.5-14.5) % Plt Count (130-400) K/uL MPV (7.4-10.4) fL Immature Gran % (Auto) % Neut % (Auto) % Lymph % (Auto) % [place] % (Auto) % Eos % (Auto) % Baso % (Auto) % Immature Gran # (Auto) (0.00-0.02) K/uL Neut # (Auto) (1.4-6.5) K/uL Lymph # (Auto) (1.2-3.4) K/uL [place] # (Auto) (0.11-0.59) K/uL Eos # (Auto) (0-0.5) K/uL Baso # (Auto) (0-0.2) K/uL Giant Platelets Echinocytes Sodium (136-145) mmol/L Potassium (3.5-5.1) mmol/L Chloride (98-107) mmol/L Carbon Dioxide (21-32) mmol/L Anion Gap (3-11) BUN (7-18) mg/dl Creatinine (0.6-1.2) mg/dl Est Cr Clr Drug Dosing ml/min Est GFR ( Amer) Est GFR (Non-Af Amer) BUN/Creatinine Ratio (10-20) Glucose (70-99) mg/dl POC Glucose (70-99) mg/dl Calcium (8.5-10.1) mg/dl Magnesium (1.8-2.4) mg/dl Total Bilirubin (0.2-1) mg/dl Direct Bilirubin (0-0.2) mg/dl AST (15-37) U/L ALT (12-78) U/L Alkaline Phosphatase (45-117) U/L Ammonia (11-32) umol/L Total Protein (6.4-8.2) gm/dl Albumin (3.4-5.0) gm/dl Lipase (73-393) U/L Vitamin B1 8 (8-30) nmol/L PG Care Time/CCT Total # of Minutes Spent Total Time Spent with Patient: Total time spent is greater than 50% in coordination of care (as documented) at patient's floor/unit and/or counseling patient: Coding Level of Care Code 52841 Subseq Hosp Care Lvl 3 Diagnoses Acute encephalopathy G93.40 Hyperglycemia due to type 2 diabetes mellitus E11.65; Z79.4 Diabetes mellitus group home insulin use: with group home use Acute hepatic encephalopathy K72.00 Subdural hematoma S06.5X9A Cirrhosis K74.60 Ascites presence: unspecified Hepatic cirrhosis type: unspecified hepatic cirrhosis Dehydration E86.0 Anemia D64.9 Anemia type: unspecified type Thrombocytopenia D69.6 Hyperlipidemia E78.2 Hyperlipidemia type: mixed hyperlipidemia COPD (chronic obstructive pulmonary disease) J44.9 COPD type: unspecified COPD Depression F32.9 Neuropathy G62.9 Metabolic acidosis E87.2 Hypomagnesemia E83.42 Hypokalemia E87.6 Elevated lipase R74.8 GERD (gastroesophageal reflux disease) K21.9 (1) Hyperglycemia due to type 2 diabetes mellitus Diabetes mellitus group home insulin use: with community placement worker use Qualified Code(s): E11.65 - Type 2 diabetes mellitus with hyperglycemia; Z79.4 - detention (current) use of insulin (2) Anemia Anemia type: unspecified type Qualified Code(s): D64.9 - Anemia, unspecified (3) Hyperlipidemia Hyperlipidemia type: mixed hyperlipidemia Qualified Code(s): E78.2 - Mixed hyperlipidemia (4) Cirrhosis Ascites presence: unspecified Hepatic cirrhosis type: unspecified hepatic cirrhosis Qualified Code(s): K74.60 - Unspecified cirrhosis of liver (5) COPD (chronic obstructive pulmonary disease) COPD type: unspecified COPD Qualified Code(s): J44.9 - Chronic obstructive pulmonary disease, unspecified
[2019-10-29] MEDS: ATORVASTATIN 20 MG TAB PO SCH (20:33)
[2019-10-29] MEDS: ESCITALOPRAM OXALATE 10 MG TAB PO SCH (20:34)
[2019-10-29] MEDS: nadoloL 40 MG TAB PO SCH (20:34)
[2019-10-30 06:55] LABS: Hematocrit (blood only) 25.8 % (37-47); Hemoglobin 8.7 g/dL (12.0-16.0); Mean Corpuscular Hemoglobin 35.8 pg (25-34); Mean Corpuscular Hgb Conc 33.7 g/dL (32-36); Mean Corpuscular Volume 106.2 fL (80-100); RDW Standard Deviation 62.3 fL (36.4-46.3); Red Blood Count 2.43 M/uL (4.2-5.4)
[2019-10-30 07:07] LABS: Mean Platelet Volume 11.1 fL (7.4-10.4); Platelet Count 51 K/uL (130-400)
[2019-10-30 07:23] LABS: Basophils # (auto) 0.02 K/uL (0-0.2); Basophils % (auto) 0.6 %; Eosinophils # (auto) 0.24 K/uL (0-0.5); Eosinophils % (auto) 6.7 %; Immature Granulocytes # (auto) 0.01 K/uL (0.00-0.02); Immature Granulocytes % (auto) 0.3 %; Lymphocytes % (auto) 30.6 %; Monocytes # (auto) 0.48 K/uL (0.11-0.59); Monocytes % (auto) 13.3 %; Neutrophils # (auto) 1.75 K/uL (1.4-6.5); Neutrophils % (auto) 48.5 %
[2019-10-30 07:28] LABS: Albumin Level 1.5 gm/dl (3.4-5.0); BUN Creatinine Ratio 19.3 (10-20); Calcium 7.8 mg/dl (8.5-10.1); Creatinine Clr Calc Pharmacy 71.9 ml/min; Est GFR (African American) 102.2; Est GFR (Non-African American) 88.2; Magnesium 1.8 mg/dl (1.8-2.4); Potassium 3.4 mmol/L (3.5-5.1)
[2019-10-30 07:31] LABS: Albumin Globulin Ratio 0.4 (0.9-2); Bilirubin,Total 0.7 mg/dl (0.2-1); Globulin 4.2 gm/dl (2.5-4.0); Total Protein 5.7 gm/dl (6.4-8.2)
[2019-10-30] MEDS ORDERED: SODIUM CHLOR 0.45% + 20MEQ KCL 20 MEQ/1,000 ML BAG IV SCH (08:00)
[2019-10-30] MEDS: INSULIN ASPART 100 UNITS/ML 3 ML PEN SC SCH (08:06)
[2019-10-30] MEDS: INSULIN GLARGINE SOLOSTAR 100 UNITS/ML 3 ML PEN SC SCH (08:07)
[2019-10-30] MEDS: FERROUS SULFATE 325 MG TAB PO SCH (08:08)
[2019-10-30] MEDS: RIFAXIMIN 550 MG TABLET PO SCH (08:08)
[2019-10-30] MEDS: POTASSIUM CHLORIDE 20 MEQ TABCR PO SCH (08:09)
[2019-10-30] MEDS: GABAPENTIN 300 MG CAP PO SCH (08:09)
[2019-10-30] MEDS: PANTOprazole 40 MG TAB PO SCH (08:09)
[2019-10-30] MEDS ORDERED: LACTULOSE SYRUP 30 GM/45 ML UDP PO SCH (09:00)
[2019-10-30] MEDS ORDERED: INSULIN GLARGINE SOLOSTAR 100 UNITS/ML 3 ML PEN SC SCH (09:00)
[2019-10-30] MEDS ORDERED: INSULIN ASPART 100 UNITS/ML 3 ML PEN SC SCH (11:30)
--- NOTE | 2019-10-30 11:56 | Pharmacy Report ---
Pharmacy Glycemic Short Note 2 - Date of Service October 30, 2019 - Glycemic Short BSG Results (Last 24 hours): 10/29/19 10/29/19 10/30/19 16:34 20:10 06:27 Glucose 94 POC Glucose 158 H 132 H 10/30/19 10/30/19 07:29 10:58 Glucose POC Glucose 96 204 H OUTPATIENT ANTIDIABETIC REGIMEN: * Basaglar 30 units SQ AM + 20 units SQ PM * Last PCP visit from September 2019 shows evening dose was reduced to 15 units * A1c 8.4% on 10/26/19 * Increased from 6.6% in August 2019 ASSESSMENT: * 69 yo F with T2DM well known to the pharmacy glycemic service admitted 10/24 secondary to hyperglycemia and confusion * All BSG's yesterday were reasonable, with the exception of lunch BSG >180 mg/dL. Lunch BSG today again >180 mg/dL. Will tighten carb ratio at breakfast only * AM fasting BSG below goal range this AM - will slightly reduce Lantus dose PLAN FOR INPATIENT GLYCEMIC CONTROL: * Basal insulin * Lantus 8-15 units SC BID based on BSG. See MAR for details * Bolus insulin * NovoLog per scale ACHS or Q6hrs while NPO * Goal Range: Low 110 mg/dL - High 140 mg/dL * Correction Factor: 25 mg/dL/unit * Carb ratio: 2.5 gCHO/unit at breakfast, 3 gCHO/unit all other checks
--- NOTE | 2019-10-30 12:42 | Discharge Summary ---
Date of Service October 30, 2019 Admission HPI Per Admitting Provider Mrs Rangel is a 69 year old female with past medical history liver cancer, liver cirrhosis, ETOH abuse, portal HTN, hepatic encephalopathy, COPD, tobacco abuse, anemia, HLD, DM who presented with acute confusion and hyperglycemia. Patient was recently admitted from 10/05-10/08 for subdural hematoma. She was discharged to [facility] patient returned to home on Wednesday10/21/19 with home health. Her son provides the history due to increased lethargy/confusion. He reports he has had increased difficulty helping with his mother at home. She has had increased blood glucose readings; her son called the physician who recommended adding an evening Lantus dose. BG was >400 today, therefore her son brought her to the ER. He reports he has been monitoring BG routinely and using insulin as prescribed. She has also been compliant with Lactulose dose -- has had loose BMs due to medication. Is drinking fluids but has decreased appetite. Has not complained of shortness of breath or chest pain, dysuria, nausea/vomiting. ER course: CXR showed atelectasis. CT head was negative. BG was >500; she received insulin IV with improvement to 389. U/a is pending collection. Principal Diagnosis multifactorial metabolic encephalopathy Discharge Exam gen awake pleasant nad. heent nc at mmm. breathing unlabored no accessory muscles good effort skin no rashes no pallor or icterus neuro no focal deficits. abd soft nd nt no masses or organomegaly Discharge Data Allergies Allergy/AdvReac Type Severity Reaction Status Date / Time methyl salicylate Allergy Mild RASH Verified 10/25/19 11:08 nickel Allergy Mild RASH Verified 10/25/19 11:08 zinc Allergy Mild RASH Verified 10/25/19 11:08 mint Allergy Verified 10/25/19 11:08 diphenhydramine AdvReac Intermediate BURNING Verified 10/25/19 11:08 EYES,DIZZY,BLISTERS Consultations 10/25/19 12:07 ED Decision to Admit Stat 10/25/19 13:45 Consult Case Management - Discharge Planning Routine Ordered Studies 10/25/19 10:30 CT head/brain wo con Stat 10/25/19 16:30 CT abd pelvis IV con only Stat Hospital Course (1) Acute encephalopathy: - Presented with acute confusion -- likely was related to hepatic encephalopathy, hyperglycemia, fecal impaction, and dehydration -had been taking lactulose at home as per son, but unclear if having adequate BMs at home -Ammonia level elevated on admission -Ur cx with mixed organisms, UTI ruled out. Afebrile, no other signs/symptoms of infection -Flu neg, Procalcitonin neg -CXR left basilar atelectasis -CT abd/pel with rectal fecal impaction, cirrhosis, gallstones, mod splenomegaly, no pancreatitis -CT head negative, did have recent subdural hematoma which is now resolved B12, folate normal, Vit B1 still pending - Management of hyperglycemia as noted below-now much improved -was hydrated with IVFs for many days. -now needs rehab placement -since she does tend to get constipation that precipitates most of her other decompensations - changed iron supplement to ferrous gluconate; did have somewhat worse hyperchloremic metabolic acidosis today but examines well, feels well, looks clinically overall around baseline - i would expect that these electrolyte abnormalities are due to diarrhea from meds given for above. diarrhea has now slowed - can continue to adjust lactulose dosing as needed; PO intake now good. would follow PO intake and BMs -- then f/u BMP ~3-4 days at SNF. stable for SNF otherwise. (2) Hyperglycemia due to type 2 diabetes mellitus: - with hyperglycemia to the 500s on admission Not sure if this was due to mild pancreatitis given elevated lipase on admission however no pancreatitis on imaging and no clear abd pain on admission. Contributed to dehydration and metabolic encephalopathy on admission Lantus home dose is 30units qAM and 20units qPM but with current pharmacy management and change in carb intake in the hospital setting, she's on lantus 15 units BID, log AC w carb ratio of 1:3, and doing well. (3) Acute hepatic encephalopathy: - H/o cirrhosis secondary to VELEZ, possible HCC on MRI liver 11/2018 at [place], has not had f/u MRI liver since then due to multiple hospitalizations since last GI visit locally with [facility] 07/2019 -Improved now with increased lacutolose dose here to tid -with numerous BMs--> decreased back to lactulose bid dosing (home dose) - Continue Rifaximin 550 mg BID. -f/u with [facility] after discharge (4) Subdural hematoma: - Recently admitted 10/05-10/08 for hematoma and then went to rehab, then home. Was transfused plts at that time - CT head was negative on admission. - Monitor plt count. However this is chronic. (5) Cirrhosis: - Known liver cirrhosis as above - Continue Nadolol 20 mg qPM. -continue rifaximin, lactulose (titrate as needed for BMs) -f/u as outpt with GI (6) Dehydration: resolved, as above (7) Anemia: - Baseline hgb ~8-9. STable -monitor CBC periodically With a h/o adenoma on colonoscopy in 2014, needs repeat colonoscopy 2020 has known varices no active bleeding (8) Thrombocytopenia: - Chronic thrombocytopenia in setting of liver cirrhosis; follow CBC periodically --hold pharmacologic ppx. -appears to be chronic, secondary to splenomegaly, cirrhosis No need for transfusion at this time (9) Hyperlipidemia: - Continue statin as prescribed. (10) COPD (chronic obstructive pulmonary disease): - No acute exacerbation noted. - Currently stable on room air. (11) Depression: - Continue Lexapro as prescribed. (12) Neuropathy: - Continue Gabapentin 300 mg BID. (13) Metabolic acidosis: HCO3 consistently 18, non-anion gap Likely due to loose stools from lactulose -see above otherwise - slight increase in Cl and slight decrease in HCO3 almost certainly from lacutlose induced diarrhea - because of this she's safe for transfer to SNF with ongoing monitoring of bowels/fluid intake. (14) Hypomagnesemia: almost certainly from GI losses. PO intake, PO supplement, follow periodically. (15) Hypokalemia: chronic, is on po KCl at home, almost certainly due to GI losses and hypomagnesemia -ongoing PO replacement and follow up (16) Elevated lipase: elevated on admission and trending downward, no abd pains and no pancreatitis on imaging nonspecific elevation (17) GERD (gastroesophageal reflux disease): - Protonix BID. DVT ppx: SCDs; hold pharmacologic ppx due to thrombocytopenia, recent subdural hematoma. Dispo: stable for SNF Total Time Total Time Spent Total Time Spent (In Minutes): >30 Discharge Plan Discharge Items Patient Disposition: Transfer Nursing Home Fac Reason For Visit: CONFUSION, HYPERGLYCEMIA Discharge Diagnosis: confusion Condition on Discharge: Fair Activity: Resume your previous activity Non-emergency contact: Primary Care Provider Call non-emergency contact if: you have any medication questions Follow-up/Referrals: Laila Thakkar MD [Primary Care Provider] - Diet: Carb Consistent or DM2 and Low Sodium (2gm) Addtl Attending Provider Instructions: altered mental status - presented with confusion related to combination of encephalopathic factors: hepatic encephalopathy, fecal impaction, dehydration, hyperglycemia (which is often the combination of events that leads to her having confusion) - now more or less back to baseline. would conitnue to follow BM's, sugars, PO intake (ate well today, had some diarrhea through the night but none today as of yet) iron deficiency - given that she frequently gets constipation/fecal impaction complicating her course of care, we have changed ferrous sulfate to ferrous gluconate metabolic acidosis - almost certainly from medication induced diarrhea. ate well today and diarrhea seems to have slowed - therefore safe for SNF. would ask that she have PO intake followed and have BMP 1-2 days DM - continue insulin titration - had sugar of 500 on admission - fairly easy to control here. pharmacy has been titrating -- currently on 15 units twice a day of lantus, carb ratio of 1:3 / goal range 110-140 CF of 25mg/dl/unit hepatic encephalopathy - now improved, rifaxamin 550mg bid, titrate lactulose based on BMs (was on TID here - induced diarrhea, backed down to BID, can continue to adjust as needed) subdural hematoma - recent - 10/05 admission related to this - but current CT head (10/24) no longer shows this (actually appears to have resolved quite quickly) Pending Studies at Discharge: Yes (Vit B1) Stand-Alone Forms: My [facility] In [facility] Gu[employer], Smoking Cessation Skilled Items Patient informed of condition?: Yes DNR: No Discharge Level of Care: Skilled Communicable Disease: No Discharge Prognosis: Stable Lines: None Urinary Catheter: No Medications and DC Order Prescriptions: New ferrous gluconate 256 mg (28 mg iron) tablet 256 mg PO BID Qty: 60 RF: 0 insulin aspart U-100 [Novolog Flexpen U-100 Insulin] 100 unit/mL (3 mL) Insulin Pen 1 units SC AC Qty: 3 RF: 0 Lantus Solostar U-100 Insulin 100 unit/mL (3 mL) Insulin Pen 15 units SC BID Qty: 15 RF: 0 Continued (DME) pen needle, diabetic [BD Teressa 2nd Gen Pen Needle] 32 gauge x 5/32" needle See Rx Instructions .ROUTE .MEDSUPPLY Qty: 100 RF: 0 (DME) lancets 30 gauge misc See Dose Instructions .ROUTE .MEDSUPPLY RF: 0 atorvastatin 20 mg tablet 20 mg PO HS Qty: 90 RF: 0 potassium chloride 20 mEq tablet extended release 20 meq PO BID RF: 0 cholecalciferol (vitamin D3) 2,000 unit Capsule 2,000 unit PO QAM RF: 0 nadolol 20 mg tablet 20 mg PO QPM RF: 0 pantoprazole 40 mg tablet,delayed release (DR/EC) 40 mg PO BIDM RF: 0 folic acid 1 mg tablet 1 mg PO QAM RF: 0 escitalopram oxalate 10 mg tablet 10 mg PO HS RF: 0 Xifaxan 550 mg Tablet 550 mg PO BID RF: 0 furosemide 20 mg tablet 20 mg PO DAILY PRN (Reason: weight gain/swelling) RF: 0 gabapentin 300 mg Capsule 300 mg PO BID RF: 0 lactulose 20 gram/30 mL Solution 20 gm PO BID Qty: 3000 RF: 0 Discontinued levofloxacin 750 mg tablet 750 mg PO DAILY 7 Days Qty: 7 RF: 0 Basaglar KwikPen U-100 Insulin 100 unit/mL (3 mL) insulin pen See Rx Instructions .ROUTE .COMPLEX Qty: 15 RF: 11 acetaminophen [Tylenol] 325 mg Tablet 650 mg PO Q4H PRN (Reason: pain/fever) RF: 0 ferrous sulfate 325 mg (65 mg iron) tablet 325 mg PO BIDM RF: 0 Discharge Orders: Discharge Order (Routine); Ordered 10/30/19 Ordered By: Mitchell Bazan Admission Data Admit Date/Time: 10/25/19 12:27 Attending Provider: Mitchell Bazan Admit Provider: Aidan Booth Primary Care Provider: Laila Thakkar Other Providers: [facility] ; [facility] ; Aiadn Booth ; Shanice Yusuf Coding Level of Care Code D/C Day Management >30 mins Diagnoses Acute encephalopathy G93.40 Hyperglycemia due to type 2 diabetes mellitus E11.65; Z79.4 Diabetes mellitus long term care phlebotomist insulin use: with long term care phlebotomist use Acute hepatic encephalopathy K72.00 Subdural hematoma S06.5X9A Cirrhosis K74.60 Ascites presence: unspecified Hepatic cirrhosis type: unspecified hepatic cirrhosis Dehydration E86.0 Anemia D64.9 Anemia type: unspecified type Thrombocytopenia D69.6 Hyperlipidemia E78.2 Hyperlipidemia type: mixed hyperlipidemia COPD (chronic obstructive pulmonary disease) J44.9 COPD type: unspecified COPD Depression F32.9 Neuropathy G62.9 Metabolic acidosis E87.2 Hypomagnesemia E83.42 Hypokalemia E87.6 Elevated lipase R74.8 GERD (gastroesophageal reflux disease) K21.9
[2019-10-30] MEDS ORDERED: INSULIN GLARGINE SOLOSTAR 100 UNITS/ML 3 ML PEN SC ONE (21:00)
[2019-10-31] MEDS ORDERED: INSULIN ASPART 100 UNITS/ML 3 ML PEN SC SCH (07:30)
[2019-10-31] MEDS ORDERED: INSULIN GLARGINE SOLOSTAR 100 UNITS/ML 3 ML PEN SC SCH (09:00)
== END 2019-10-30 13:11 | DRG 388 ==
LOC: ED 10:18 → 2N 12:27 → SUATTDRO 12:27 → 2N 12:41

== ENCOUNTER 2019-11-14 22:52 | Inpatient (IN) ==
[2019-11-14] MEDS ORDERED: SODIUM CHLORIDE 0.9% 1000ML 500 ML IV ONE (22:57)
--- NOTE | 2019-11-14 23:04 | Emergency Department Note ---
Impression & Plan Encephalopathy, Complicated urinary tract infection ED Provider Note Name: DAYA HUBER Age: 69 Sex: F Arrives Via: Ambulance Informant: EMS ED Provider: Omar Garcia MD Chief Complaint: Confusion Impression: Encephalopathy Complicated Urinary Tract Infection Medical Decision Makin yr old female with extensive PMH including cirrhosis who has had multiple previous admissions for encephalopathy due to hepatic issues, sepsis, as well as previous ICH. Today with worsening confusion throughout the day and febrile on arrival. She has no COVID risks other than age and fever and I do not feel that she is PUI at this time. She does have evidence of UTI which she has had previously. She is dehydrated on arrival and given IV fluids. I will note that her Lactic acid is elevated though after discussing with hospitalist we will hold on full 30ml/kg IV fluids to avoid overload as well as fact Lactate likely up as well due to chronic liver disease. She has elevated ammonia, however it is about baseline currently. She has no known head injury nor contusion noted thus will hold on CT head at this time given other likely cause of encephalopath y. She has UOP on beck placement and hospitalist in to evaluate further. She was given IV rocephin for UTI coverage. CXR clear and she is not in any respiratory distress. Prior Medical Record and Triage/Nursing Notes reviewed by Me Additional history obtained from Son Kevin Lee ([id number]) Differentials:Infection, hypoglycemia, electrolyte abnormalities, overdose, toxicologic, cardiac sources, intracerebral event, neurologic, trauma, as well as other pathologies. Vital Signs: reviewed and remarkable for febrile on arrival Interventions: Saline lock, NSS bolus 500ml IV, Rocephin 2 gm IV Labs:Reviewed and remarkable for elevated ammonia, 4+ bacteria in urine Imaging:X ray results are stated below per my interpretation: Chest: 1 view: No infiltrate, no effusion, normal cardiac border. Cardiac/Tele Monitoring: Cardiac Monitoring: An Order was placed for continuous cardiac monitoring. The monitor shows a rate of 70 with a normal sinus rhythm. Consults:Dr Sesar MILLER Hospitalist Plan: Disposition:Hospitalization. Condition: Fair Blood pressure:Normal.No Referral necessary History of Present Illness:69 / F arrives for evaluation of confusion. Patient with extensive complex PMH including hepatic failure, DMII, anemia, hypomagnesemia, hypothyroid, gerd, hyperlipidemia, copd with multiple epidoses previously of hepatic encephalopathy, sepsis, and admissions. She was last admi tted a month ago for encephalopathy and hyperglycemia. She has been living at home with family. Over the course of the afternoon worsening confusion and somnolence. EMS called due to worsening symptoms. Temp noted to be 99.9F by EMS otherwise vitals stable. She has had no cough, shortness of breath, nor any respiratory issues. She has no history of travel nor exposure to Covid-19 persons. She received no interventions prior to arrival. Nothing makes better nor worse. Patient without reported falls nor trauma. ROS: Unable to obtain secondary to patient encephalopathy Past Medical History:See Below Past Surgical History:See Below Family History:See Below Social History:See Below Home Medications:See Below Allergies:See Below Vitals:Blood Pressure: 136/43, Pulse 72, RR 1, T 38.4C, O2 100% on RA Physical Exam: GENERAL: Patient is chronically unwell and dehydrated appearing and in no acute distress however is clearly encephalopathic EYES: No scleral icterus, unremarkable pupils. ENT: Mucous membranes ++Dry, no nasal congestion. NECK: No masses appreciated, nomeningismus, trachea is midline. RESPIRATORY: No dyspnea. Clear to auscultation and equal bilaterally. No wheeze, no rhonchi. CARDIOVASCULAR: Regular rate and rhythm.No murmurs, rubs, gallops appreciated. GASTROINTESTINAL: Abdomen soft, non-tender, no peritonitis.Bowel sounds positive.No masses appreciated. BACK: No midline tenderness, no CVA tenderness EXTREMITIES: Mild bilateral lower leg edema, weakly moves all extremities, no cyanosis NEUROLOGIC: Encephalopathic, no acute motor or sensory deficits, no focal weakness, cranial nerves grossly intact. SKIN: No rash, no jaundice, no diaphoresis. PSYCH: Encephalopathic ED Course: Times/Reassessments: Multiple, somnolent, no distress Omar Garcia MD Past Med/Surg History Medical History (Updated 11/15/19 @ 02:09 by Mala Liz MD) Anxiety Bronchitis (Acute Unknown) Chronic back pain Cirrhosis FOLLOWS W/ [facility], MELD score 10. COPD (chronic obstructive pulmonary disease) (Chronic) Uses recuse inhaler ~ once/month Depression Diabetes mellitus, type 2 (Chronic) IDDM Esophageal varices Per EGD 11/30/2018: Nonbleeding grade 1 and small (<5 mm) esophageal varices. Hyperlipidemia Kidney stones Liver cancer (Acute) DX 1-2 MONTHS AGO Migraine Neuropathy Osteoarthritis Pancytopenia (Acute) Poor historian Shortness of breath on exertion Skin cancer of face Sleep apnea PT UNABLE TO CONFIRM, DOES NOT USE ASSISTIVE DEVICE HS Surgical History History of arthroscopy of left shoulder History of arthroscopy of right knee History of bilateral cataract extraction History of carpal tunnel surgery of left wrist History of lithotripsy History of Mohs micrographic surgery for skin cancer History of tonsillectomy and adenoidectomy History of tooth extraction all teeth removed History of total abdominal hysterectomy and bilateral salpingo-oophorectomy S/P ureteral stent placement Status post laser lithotripsy of ureteral calculus Status post trigger finger release Social History Preferred Language: Hungarian Communication Ability: Effective Visual Impairment: No Limitations Nuclear Monitoring Technician Required: No Beliefs That Will Affect Care: None marital status: / Current Living Situation: Family Current Living Situation Comment: With son. Feels Safe at Home: Yes Smoking Status: Former smoker Tobacco Type: cigarettes ; Cigarettes Per Day: 4 PPD ; Second Hand Exposure: No ; Hx Alcohol Use: No Hx Substance Use: No Allergies Allergies Allergy/AdvReac Type Severity Reaction Status Date / Time methyl salicylate Allergy Mild RASH Verified 11/14/19 23:24 nickel Allergy Mild RASH Verified 11/14/19 23:24 zinc Allergy Mild RASH Verified 11/14/19 23:24 mint Allergy Unknown Unknown Verified 11/14/19 23:24 diphenhydramine AdvReac Intermediate BURNING Verified 11/14/19 23:24 EYES,DIZZY,BLISTERS Home Meds Home Medications Medication Instructions Recorded Confirmed cholecalciferol (vitamin D3) 2,000 unit PO QAM 04/13/18 11/14/19 lancets 30 gauge ea 04/19/19 11/14/19 escitalopram oxalate 10 mg PO HS 06/15/19 11/14/19 folic acid 1 mg PO QAM 06/15/19 11/14/19 nadolol 20 mg PO QPM 06/15/19 11/14/19 pantoprazole 40 mg PO BIDM 06/15/19 11/14/19 Xifaxan 550 mg PO BID 10/06/19 11/14/19 furosemide 20 mg PO DAILY PRN 10/06/19 11/14/19 gabapentin 300 mg PO BID 10/06/19 11/14/19 potassium chloride 20 mEq 20 meq PO BID 10/23/19 11/14/19 tablet,extended release acetaminophen 325 mg tablet 650 mg PO Q6H PRN tab 11/14/19 11/14/19 ferrous gluconate 240 mg (27 mg 240 mg PO BID tab 11/14/19 11/14/19 iron) tablet magnesium hydroxide [Milk of 30 ml PO DAILY PRN 11/14/19 11/14/19 Magnesia] sodium phosphates [Fleet Enema] 118 ml [place] DAILY PRN 11/14/19 11/14/19 Previous Rx's Medication Instructions Recorded atorvastatin 20 mg tablet 20 mg PO HS #90 tab 06/26/19 lactulose 20 gm PO BID #3000 ml 07/31/19 pen needle, diabetic 32 gauge x #100 ea 10/04/19" insulin aspart U-100 [Novolog 1 units SC AC #3 ml 10/30/19 Flexpen U-100 Insulin] insulin glargine [Lantus Solostar 15 units SC BID #15 ml 10/30/19 U-100 Insulin] magnesium oxide 400 mg PO DAILY #30 tab 10/30/19 Results & Data (ED) Vital Signs Vital Signs - 24 hr 11/14/19 23:04 11/14/19 23:35 11/15/19 00:30 Temperature 38.4 C H Temperature Source Rectal Pulse Rate 79 Pulse Rate [Finger] 66 69 Respiratory Rate 20 20 20 Respiratory Effort / Characteristics Non-Labored Spontaneous Non-Labored Spontaneous Non-Labored Spontaneous Respiratory Depth Normal Normal Normal Blood Pressure 136/43 L Blood Pressure [Right Arm] 113/53 L 123/45 L Blood Pressure Mean 74 Blood Pressure Mean [Right Arm] 73 71 Pulse Oximetry 99 98 99 Oxygen Delivery Method Room Air Room Air Room Air Sepsis Recent Fever Within 48 Hours Yes Sepsis Action Taken by Nursing No Action Required Laboratory Data Result diagrams: 11/14/19 23:56 11/14/19 23:13 Lab Results 11/14/19 11/14/19 11/14/19 Range/Units 23:13 23:13 23:13 WBC (4.8-10.8) K/uL RBC (4.2-5.4) M/uL Hgb (12.0-16.0) g/dL Hct (37-47) % MCV (80-100) fL MCH (25-34) pg MCHC (32-36) g/dL RDW Std Deviation (36.4-46.3) fL RDW Coeff of Chloe (11.5-14.5) % Plt Count (130-400) K/uL MPV (7.4-10.4) fL Immature Gran % (Auto) % Neut % (Auto) % Lymph % (Auto) % [place] % (Auto) % Eos % (Auto) % Baso % (Auto) % Immature Gran # (Auto) (0.00-0.02) K/uL Neut # (Auto) (1.4-6.5) K/uL Lymph # (Auto) (1.2-3.4) K/uL [place] # (Auto) (0.11-0.59) K/uL Eos # (Auto) (0-0.5) K/uL Baso # (Auto) (0-0.2) K/uL PT 15.0 H (9.0-12.0) Seconds INR 1.4 H (0.9-1.1) APTT 32.2 H (21.0-31.0) Seconds PTT Ratio 1.2 Sodium 138 (136-145) mmol/L Potassium 3.1 L (3.5-5.1) mmol/L Chloride 119 H (98-107) mmol/L Carbon Dioxide 18 L (21-32) mmol/L Anion Gap 2.0 L (3-11) BUN 16 (7-18) mg/dl Creatinine 1.07 (0.6-1.2) mg/dl Est Cr Clr Drug Dosing 46.6 ml/min Est GFR ( Amer) 60.9 Est GFR (Non-Af Amer) 52.6 BUN/Creatinine Ratio 15.3 (10-20) Glucose 311 H* (70-99) mg/dl Lactate (0.4-2.0) mmol/L Calcium 8.1 L (8.5-10.1) mg/dl Magnesium 1.6 L (1.8-2.4) mg/dl Total Bilirubin 1.0 (0.2-1) mg/dl Direct Bilirubin 0.5 H (0-0.2) mg/dl AST 63 H (15-37) U/L ALT 57 (12-78) U/L Alkaline Phosphatase 176 H (45-117) U/L Ammonia 65.4 H (11-32) umol/L Troponin I 0.034 (0-0.045) ng/ml Total Protein 6.9 (6.4-8.2) gm/dl Albumin 1.9 L (3.4-5.0) gm/dl Lipase 2764 H (73-393) U/L Beta-Hydroxybutyric Acd 0.82 (0.2-2.81) mg/dl TSH 1.770 (0.300-4.500) uIu/ml Urine Color Urine Appearance (Clear) Urine pH (4.5-7.5) Ur Specific [place] (1.000-1.030) Urine Protein (Negative) Urine Glucose (UA) (Negative) Urine Ketones (Negative) Urine Blood (Negative) Urine Nitrite (Negative) Urine Bilirubin (Negative) Urine Urobilinogen (Negative) Ur Leukocyte Esterase (Negative) Urine WBC (Auto) (0-5) /hpf Urine RBC (Auto) (0-4) /hpf U Hyaline Cast (Auto) (0-5) /lpf U Epithel Cells (Auto) (0-5) /lpf Urine Bacteria (Auto) (Negative) 11/14/19 11/14/19 11/14/19 Range/Units 23:13 23:53 23:56 WBC 7.90 (4.8-10.8) K/uL RBC 2.39 L (4.2-5.4) M/uL Hgb 8.5 L (12.0-16.0) g/dL Hct 24.6 L (37-47) % MCV 102.9 H (80-100) fL MCH 35.6 H (25-34) pg MCHC 34.6 (32-36) g/dL RDW Std Deviation 58.6 H (36.4-46.3) fL RDW Coeff of Chloe 15.7 H (11.5-14.5) % Plt Count 55 L (130-400) K/uL MPV 10.4 (7.4-10.4) fL Immature Gran % (Auto) 0.4 % Neut % (Auto) 72.9 % Lymph % (Auto) 16.2 % [place] % (Auto) 9.7 % Eos % (Auto) 0.5 % Baso % (Auto) 0.3 % Immature Gran # (Auto) 0.03 H (0.00-0.02) K/uL Neut # (Auto) 5.76 (1.4-6.5) K/uL Lymph # (Auto) 1.28 (1.2-3.4) K/uL [place] # (Auto) 0.77 H (0.11-0.59) K/uL Eos # (Auto) 0.04 (0-0.5) K/uL Baso # (Auto) 0.02 (0-0.2) K/uL PT (9.0-12.0) Seconds INR (0.9-1.1) APTT (21.0-31.0) Seconds PTT Ratio Sodium (136-145) mmol/L Potassium (3.5-5.1) mmol/L Chloride (98-107) mmol/L Carbon Dioxide (21-32) mmol/L Anion Gap (3-11) BUN (7-18) mg/dl Creatinine (0.6-1.2) mg/dl Est Cr Clr Drug Dosing ml/min Est GFR ( Amer) Est GFR (Non-Af Amer) BUN/Creatinine Ratio (10-20) Glucose (70-99) mg/dl Lactate 3.1 H* (0.4-2.0) mmol/L Calcium (8.5-10.1) mg/dl Magnesium (1.8-2.4) mg/dl Total Bilirubin (0.2-1) mg/dl Direct Bilirubin (0-0.2) mg/dl AST (15-37) U/L ALT (12-78) U/L Alkaline Phosphatase (45-117) U/L Ammonia (11-32) umol/L Troponin I (0-0.045) ng/ml Total Protein (6.4-8.2) gm/dl Albumin (3.4-5.0) gm/dl Lipase (73-393) U/L Beta-Hydroxybutyric Acd (0.2-2.81) mg/dl TSH (0.300-4.500) uIu/ml Urine Color Dark Yellow Urine Appearance Cloudy A (Clear) Urine pH 5.0 (4.5-7.5) Ur Specific [place] 1.021 (1.000-1.030) Urine Protein 1+ H (Negative) Urine Glucose (UA) 2+ H (Negative) Urine Ketones Negative (Negative) Urine Blood 3+ H (Negative) Urine Nitrite Negative (Negative) Urine Bilirubin Negative (Negative) Urine Urobilinogen Negative (Negative) Ur Leukocyte Esterase Negative (Negative) Urine WBC (Auto) 5-10 H (0-5) /hpf Urine RBC (Auto) >30 H (0-4) /hpf U Hyaline Cast (Auto) 0 (0-5) /lpf U Epithel Cells (Auto) 0-5 (0-5) /lpf Urine Bacteria (Auto) 4+ H (Negative) Administered Medications Discontinued Medications Sodium Chloride (Nss 1000ml) 500 mls @ 999 mls/hr IV .Q31M ONE Stop: 11/14/19 23:27 Last Infusion: 11/15/19 00:12 Dose: 0 mls/hr Documented by: [id number] Admin: 11/14/19 23:41 Dose: 999 mls/hr Documented by: [id number] Ceftriaxone Sodium (Rocephin) 2,000 mg in 70 mls @ 140 mls/hr IV NOW STA Stop: 11/15/19 00:38 Last Infusion: 11/15/19 00:59 Dose: 0 mls/hr Documented by: [id number] Admin: 11/15/19 00:21 Dose: 140 mls/hr Documented by: [id number] Discharge Plan Visit Data Chief Complaint: Altered Mental Status Stated Complaint: ALTERED MENTAL STATUS ED Provider: Omar Garcia Discharge Problem: Encephalopathy, Complicated urinary tract infection Discharge Instructions Interventions: ED Discharge Assessment Last Done: 11/15/19 01:49
[2019-11-14 23:45] LABS: Appearance Urine Cloudy (Clear); Bacteria Urine Automated 4+ (Negative); Bilirubin Urine Negative (Negative); Blood Urine 3+ (Negative); Cast Urine Automated 0 /lpf (0-5); Color Urine Dark Yellow; Epithelial Cell Urine Auto 0-5 /lpf (0-5); Glucose Urine UA 2+ (Negative); Ketones Urine Negative (Negative); Leukocyte Esterase Urine Negative (Negative); Nitrite Urine Negative (Negative); Protein Urine 1+ (Negative); Specific Gravity Urine 1.021 (1.000-1.030); Urobilinogen Urine Negative (Negative)
[2019-11-14 23:49] LABS: INR 1.4 (0.9-1.1); Partial Thromboplastin Ratio 1.2; Partial Thromboplastin Time 32.2 Seconds (21.0-31.0)
[2019-11-15 00:04] LABS: RBC Urine Automated >30 /hpf (0-4)
[2019-11-15 00:05] LABS: Hematocrit (blood only) 24.6 % (37-47); Hemoglobin 8.5 g/dL (12.0-16.0); Mean Corpuscular Hemoglobin 35.6 pg (25-34); Mean Corpuscular Hgb Conc 34.6 g/dL (32-36); Mean Corpuscular Volume 102.9 fL (80-100); RDW Coefficient of Variation 15.7 % (11.5-14.5); RDW Standard Deviation 58.6 fL (36.4-46.3); Red Blood Count 2.39 M/uL (4.2-5.4)
[2019-11-15 00:08] LABS: Mean Platelet Volume 10.4 fL (7.4-10.4); Platelet Count 55 K/uL (130-400)
[2019-11-15] MEDS ORDERED: cefTRIAXone SODIUM 2,000 MG/70 ML BAG IV STA (00:09)
[2019-11-15 00:19] LABS: Albumin Level 1.9 gm/dl (3.4-5.0); BUN Creatinine Ratio 15.3 (10-20); Bilirubin Direct 0.5 mg/dl (0-0.2); Calcium 8.1 mg/dl (8.5-10.1); Creatinine Clr Calc Pharmacy 46.6 ml/min; Est GFR (African American) 60.9; Est GFR (Non-African American) 52.6; Magnesium 1.6 mg/dl (1.8-2.4); Potassium 3.1 mmol/L (3.5-5.1); Thyroid Stimulating Hormone 1.77 uIu/ml (0.300-4.500); Total Protein 6.9 gm/dl (6.4-8.2); Troponin I 0.034 ng/ml (0-0.045)
[2019-11-15 00:32] LABS: Basophils # (auto) 0.02 K/uL (0-0.2); Basophils % (auto) 0.3 %; Eosinophils # (auto) 0.04 K/uL (0-0.5); Eosinophils % (auto) 0.5 %; Immature Granulocytes # (auto) 0.03 K/uL (0.00-0.02); Immature Granulocytes % (auto) 0.4 %; Lymphocytes # (auto) 1.28 K/uL (1.2-3.4); Lymphocytes % (auto) 16.2 %; Monocytes # (auto) 0.77 K/uL (0.11-0.59); Monocytes % (auto) 9.7 %; Neutrophils # (auto) 5.76 K/uL (1.4-6.5); Neutrophils % (auto) 72.9 %
[2019-11-15 00:32] LABS: Beta-Hydroxybutyrate 0.82 mg/dl (0.2-2.81)
--- NOTE | 2019-11-15 01:41 | History & Physical Report ---
Date of Service November 15, 2019 Assessment & Plan (1) Acute encephalopathy: Mrs. Rangel is a 69 yo F with a complex medical history, most notable for suspected hepatocellular carcinoma, liver cirrhosis, portal HTN and recurrent hepatic encephalopathy presenting with AMS and suspected UTI. Acute Encephalopathy - likely hepatic in etiology vs. metabolic vs. multifactorial - ammonia level elevated to 65.4 on admission - patient febrile to 38.4, WBC normal, UA concerning for infection - blood cultures and urine culture pending - CXR without evidence of focal consolidation, official read pending - mild electrolyte abnormalities (K at 3.1, mag at 1.6) - blood glucose elevated to 311 on admission - per ED doc note, patient son reported no falls leading up to admission; will hold off on head CT at this time Cirrhosis - etiology VELEZ vs. ETOH induced - continue nadolol, rifaxamin and lactulose Suspected hepatocellular carcinoma - noted on liver MRI 11/2018 at [facility]; patient has not yet had follow up MRI, no biopsy confirmation - patient to f/u with [facility] GI Suspected UTI - UA 4+ for bacteria on admission - urine culture pending - patient received 2g of Rocephin in ED - beck catheter placed in ED Hyperglycemia due to type 2 diabetes mellitus: - blood glucose at 311 on admission - glycemic consult placed; home dose of lantus insulin is 30 units in AM and 20 units PM Macrocytic Anemia - hgb 8.5 on admission, baseline ~ 8-9 - MCV 102 - vitamin B12 and folate WNL checked last admission - 3+ blood in urine on UA - patient with known esophageal varices and h/o adenoma on colonoscopy in 2014, needs repeat colonoscopy 2019 Thrombocytopenia: - chronic issue secondary to liver cirrhosis - platelets at 55 on admission - No need for transfusion at this time Hyperlipidemia: - Continue home statin COPD (chronic obstructive pulmonary disease): - Currently satting 100% on room air. Depression: - Continue home lexapro Neuropathy: - Continue home Gabapentin 300 mg BID. Hypomagnesemia: - level at 1.6 on admission - PO replacement ordered . Hypokalemia: - chronic, is on po KCl at home, almost certainly due to GI losses and hypomagnesemia -ongoing PO replacement and follow up Elevated lipase: - elevated on admission - chart review reveals this is a chronic lab finding which has never been clinically correlated to pancreatitis GERD (gastroesophageal reflux disease): - continue Protonix BID. Code Status: Full Code DVT ppx: chemical ppx contraindicated in setting of coagulopathy and elevated INR. SCDs ordered Diet: Heart Healthy, DM II Dispo: Med/Surg (2) UTI (urinary tract infection): (3) Liver cirrhosis: (4) Increased ammonia level: History of Present Illness Primary Care Provider: [facility] Mrs. Rangel is a medically complicated 69 yo female with PMHx significant for suspected hepatocellular carcinoma, liver cirrhosis, portal hypertension, recurrent hepatic encephalopathy, who presents for evaluation of altered mental status. Per review of emergency department intake, Mrs. Rangel's son called an ambulance after he noticed a change in her baseline mentation over the course of the day. Mrs. Rangel has had several recent admissions for altered mental status, nearly all of which were thought to be secondary hepatic encephalopathy, often multifactorial with various metabolic etiologies (infections, electrolyte abnormalities, elevated blood sugars, etc). No family is present at bedside for additional history. ED course: Patient febrile to 38.4. BP 117/43. HR 67. RR 20. WBC normal. Potassium low at 3.1. INR 1.4. Ammonia 65.4. Lactate 3.1. UA 4+ bacteria, 5-10 WBCs, neg for nitrites and LE. Urine culture pending. Blood cultures pending. CXR obtained. Given 1/2 liter normal saline bolus; 2 g IV rocephin for suspected urinary tract infection. Allergies Allergy/AdvReac Type Severity Reaction Status Date / Time methyl salicylate Allergy Mild RASH Verified 11/14/19 23:24 nickel Allergy Mild RASH Verified 11/14/19 23:24 zinc Allergy Mild RASH Verified 11/14/19 23:24 mint Allergy Unknown Unknown Verified 11/14/19 23:24 diphenhydramine AdvReac Intermediate BURNING Verified 11/14/19 23:24 EYES,DIZZY,BLISTERS Home Medications Home Medications Medication Instructions Recorded Confirmed Type cholecalciferol (vitamin D3) 2,000 unit PO QAM 04/13/18 11/14/19 History lancets 30 gauge ea 04/19/19 11/14/19 History escitalopram oxalate 10 mg PO HS 06/15/19 11/14/19 History folic acid 1 mg PO QAM 06/15/19 11/14/19 History nadolol 20 mg PO QPM 06/15/19 11/14/19 History pantoprazole 40 mg PO BIDM 06/15/19 11/14/19 History atorvastatin 20 mg tablet 20 mg PO HS #90 tab 06/26/19 11/14/19 Rx lactulose 20 gm PO BID #3000 ml 07/31/19 11/14/19 Rx pen needle, diabetic 32 gauge x #100 ea 10/04/19 11/14/19 Rx 5/32" Xifaxan 550 mg PO BID 10/06/19 11/14/19 History furosemide 20 mg PO DAILY PRN 10/06/19 11/14/19 History gabapentin 300 mg PO BID 10/06/19 11/14/19 History potassium chloride 20 mEq 20 meq PO BID 10/23/19 11/14/19 History tablet,extended release insulin aspart U-100 [Novolog 1 units SC AC #3 ml 10/30/19 11/14/19 Rx Flexpen U-100 Insulin] insulin glargine [Lantus Solostar 15 units SC BID #15 ml 10/30/19 11/14/19 Rx U-100 Insulin] magnesium oxide 400 mg PO DAILY #30 tab 10/30/19 11/14/19 Rx acetaminophen 325 mg tablet 650 mg PO Q6H PRN tab 11/14/19 11/14/19 History ferrous gluconate 240 mg (27 mg 240 mg PO BID tab 11/14/19 11/14/19 History iron) tablet magnesium hydroxide [Milk of 30 ml PO DAILY PRN 11/14/19 11/14/19 History Magnesia] sodium phosphates [Fleet Enema] 118 ml [place] DAILY PRN 11/14/19 11/14/19 History Past Med/Surg History Medical History (Updated 11/16/19 @ 00:01 by Background Daemon) Anxiety Bronchitis (Acute Unknown) Chronic back pain Cirrhosis FOLLOWS W/ [facility], MELD score 10. COPD (chronic obstructive pulmonary disease) (Chronic) Uses recuse inhaler ~ once/month Depression Diabetes mellitus, type 2 (Chronic) IDDM Esophageal varices Per EGD 11/30/2018: Nonbleeding grade 1 and small (<5 mm) esophageal varices. Hyperlipidemia Kidney stones Liver cancer (Acute) DX 1-2 MONTHS AGO Migraine Neuropathy Osteoarthritis Pancytopenia (Acute) Poor historian Shortness of breath on exertion Skin cancer of face Sleep apnea PT UNABLE TO CONFIRM, DOES NOT USE ASSISTIVE DEVICE HS Surgical History History of arthroscopy of left shoulder History of arthroscopy of right knee History of bilateral cataract extraction History of carpal tunnel surgery of left wrist History of lithotripsy History of Mohs micrographic surgery for skin cancer History of tonsillectomy and adenoidectomy History of tooth extraction all teeth removed History of total abdominal hysterectomy and bilateral salpingo-oophorectomy S/P ureteral stent placement Status post laser lithotripsy of ureteral calculus Status post trigger finger release Social History Preferred Language: Yakut Communication Ability: Effective Visual Impairment: No Limitations Kiln Furniture 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 Other Information That Helps Us Care for You: No Feels Safe at Home: Yes Safety Concerns: Feels Safe At This Time Smoking Status: Former smoker Tobacco Type: cigarettes ; Cigarettes Per Day: 4 PPD ; Do You Dip or Chew Tobacco: No ; Second Hand Exposure: No ; Tobacco Cessation Education Requested by Patient: No Hx Alcohol Use: No Hx Substance Use: No Review of Systems Review of Systems: Patient denies being in any discomfort. Physical Exam Constitutional: + ill appearing, cooperative and + lethargic Eyes: PERRL, conjunctivae normal, anicteric sclerae ENMT: external ear and nose normal, oropharynx normal Neck: normal visual inspection and trachea midline Respiratory: normal respiratory effort, lungs clear to auscultation Cardiovascular: Rate/Rhythm: regular rate and regular rhythm Heart Sounds: normal S1, normal S2 and + murmur (systolic ejection murmur) Extremities: + p edal edema (+2 bilaterally) Gastrointestinal (Abdomen): Inspection/Auscultation: abdomen normal to inspection and normal bowel sounds; abdomen not distended Percussion/Palpation: + abdomen tender (RUQ) and abdomen soft; no guarding Skin: no rashes, warm and dry Psychiatric: Orientation: oriented to person and oriented to place; + not oriented to time Genitourinary: Beck catheter in place draining dark yellow, cloudy urine Results & Data Results & Data ([facility]) Vital Signs (Past 12 Hours) Vital Signs Temp Pulse Pulse Resp BP BP Pulse Ox 11/15/19 01:30 37.7 C H 67 20 117/43 L 98 11/15/19 00:30 69 20 123/45 L 99 11/14/19 23:35 66 20 113/53 L 98 11/14/19 23:04 38.4 C H 79 20 136/43 L 99 Code Status & VTE Plan VTE Prophylaxis Plan VTE Prophylaxis will be ordered: Yes Supervising Physician Co-Signing Physician Notes Attending addendum: I have physically seen this patient, have supervised the medical residents activities, and agree with the H&P unless as otherwise noted. Assessment and Plan: Altered mental status/acute metabolic encephalopathy- Ammonia level stably elevated in the 65.4 range. Symptoms likely secondary to urinary tract infection and uremic encephalopathy. N.p.o. except essential medications Replete magnesium and potassium IV. Urinary tract infection- Empiric ceftriaxone 2 g IV daily. Follow urine culture and sensitivity. IV fluids. Remainder of orders and notations as noted. Resident Activity Tracking Resident Involvement: Resident Care Provided Care Provided: Adult Hospital Medicine (1) UTI (urinary tract infection) Hematuria presence: without hematuria Urinary tract infection type: site unspecified Qualified Code(s): N39.0 - Urinary tract infection, site not specified
[2019-11-15] MEDS ORDERED: ACETAMINOPHEN 325 MG TAB PO PRN (02:14)
[2019-11-15] MEDS ORDERED: MAGNESIUM HYDROXIDE SUSP 30 ML UDC PO PRN (02:14)
[2019-11-15] MEDS ORDERED: SOD PHOSPHATE/SOD BIPHOSPHATE ENEMA 132 ML BTL PR PRN (02:14)
[2019-11-15] MEDS ORDERED: PHARMACY GLYCEMIC MGMT CONSULT PRN (02:18)
[2019-11-15] MEDS: SODIUM CHLORIDE 0.9% 1000ML 1,000 ML IV SCH ×2 (02:26→10:33)
[2019-11-15] MEDS ORDERED: INSULIN GLARGINE SOLOSTAR 100 UNITS/ML 3 ML PEN SC ONE (02:30)
[2019-11-15] MEDS ORDERED: GLUCOSE 10 TABS/TUBE PO PRN (02:30)
[2019-11-15] MEDS ORDERED: GLUCOSE 40% GEL 15 GM TUBE PO PRN (02:30)
[2019-11-15] MEDS ORDERED: CARBOHYDRATES FOR HYPOGLYCEMIA PO PRN (02:30)
[2019-11-15] MEDS ORDERED: DEXTROSE 50% 50 ML SYRINGE IV PRN (02:30)
[2019-11-15] MEDS ORDERED: INSULIN ASPART 100 UNITS/ML 3 ML PEN SC ONE (02:30)
[2019-11-15] MEDS ORDERED: GLUCAGON FOR INJ 1 MG VIAL IM PRN (02:30)
[2019-11-15] MEDS: FERROUS GLUCONATE 324 MG TAB PO SCH ×2 (07:14→20:28)
[2019-11-15] MEDS: POTASSIUM CHLORIDE 20 MEQ TABCR PO SCH ×2 (07:14→20:30)
[2019-11-15] MEDS: PANTOprazole 40 MG TAB PO SCH ×2 (07:14→17:27)
[2019-11-15] MEDS: FOLIC ACID 1 MG TAB PO SCH (07:14)
[2019-11-15] MEDS: GABAPENTIN 300 MG CAP PO SCH ×2 (07:14→20:30)
[2019-11-15] MEDS: MAGNESIUM OXIDE 400 MG TAB PO SCH (07:14)
[2019-11-15] MEDS: RIFAXIMIN 550 MG TABLET PO SCH ×2 (07:14→20:28)
--- NOTE | 2019-11-15 07:32 | XRay Report ---
XR chest 1V portable HISTORY: 69 years-old Female AMS acutely altered mental status COMPARISON: Chest radiograph and CT abdomen and pelvis 10/25/2019 TECHNIQUE: Portable AP view of the chest FINDINGS: Cardiac silhouette is mildly enlarged, unchanged. Calcified plaque of the thoracic aortic arch. Minim al left lung base opacities suggest atelectasis/scarring. No pneumothorax, pleural effusion or overt pulmonary edema. Surgical screw projects over the left proximal humerus. Prior distal left clavicular resection. Bones of the chest appear grossly intact. IMPRESSION: No acute process. ACT 112: Negative or not required by law. The above report was generated using voice recognition software. It may contain grammatical, syntax o r spelling errors. Electronically signed by: Servando Nunez M.D. 11/15/2019 7:31 AM
[2019-11-15] MEDS: INSULIN ASPART 100 UNITS/ML 3 ML PEN SC SCH ×4 (08:50→20:34)
[2019-11-15] MEDS: INSULIN GLARGINE SOLOSTAR 100 UNITS/ML 3 ML PEN SC SCH ×2 (08:51→20:34)
[2019-11-15] MEDS ORDERED: LACTULOSE SYRUP 20 GM/30 ML UDC PO SCH (09:00)
[2019-11-15 10:18] LABS: BUN Creatinine Ratio 16.2 (10-20); Calcium 7.5 mg/dl (8.5-10.1); Creatinine Clr Calc Pharmacy 49.8 ml/min; Est GFR (African American) 66.1
--- NOTE | 2019-11-15 12:11 | Hospitalist Progress Note ---
Date of Service November 15, 2019 Assessment & Plan (1) Acute encephalopathy: Patient with documented acute encephalopathy. Suspect this may be hepatic encephalopathy with elevated ammonia level. Head CT from previous admission noted, not repeated on this admission. Urinalysis more consistent with traumatic Poole placement than acute urinary tract infection. It does appear patient received 2 g of ceftriaxone emergency room but this is since been discontinued. Patient has a normal white count is not on antibiotics. Patient is on lactulose 20g twice daily along with rifaximin. I also see that she is on nadolol for portal hypertension. We will need to monitor for effective bowel mo vements. If no improvement over the next 24 hours, can consider imaging of the brain to rule out cerebrovascular event although this seems less likely considering patient's appearance. Can also consider neurology evaluation if no improvement. (2) Liver cirrhosis: CT of the abdomen pelvis on presentation reviewed. Patient has been getting work-up for possible hepatocellular carcinoma. No discrete masses were seen on the CT here. Patient does have cirrhosis is noted is mild although she also has varices as documented. Continue to monitor. (3) Diabetes mellitus type 2 in obese: Blood sugar significantly elevated. She was 342 on presentation although this is now down to 265. Patient is on sliding scale insulin along with Lantus 15 units twice daily. Continue to monitor this as well, consider increasing Lantus if blood sugars remain elevated over 200. Hemoglobin A1c was ordered. Diabetic education was also ordered. (4) COPD (chronic obstructive pulmonary disease): Appears to be stable from a respiratory standpoint. Admission and Anticipated Discharge Date Admission Date: November 15, 2019 Subjective Patient seen and examined. She is awake but very slow to respond to questions. She is feeding herself. She seems to be oriented only to person. She does not appear to be in any distress and only asked me when she can be discharged home. Physical Exam Constitutional: no acute distress Mildly lethargic and confused as noted. Oriented only to person. Nonjaundiced and anicteric. Neck: trachea midline, no thyromegaly Respiratory: normal respiratory effort Auscultation: lungs clear to auscultation bilaterally; no crackles, no rales, no rhonchi and no wheezes Cardiovascular: Rate/Rhythm: regular rate and regular rhythm Heart Sounds: normal S1 and normal S2 Gastrointestinal (Abdomen): Inspection/Auscultation: abdomen normal to inspection Percussion/Palpation: abdomen soft; abdomen nontender, no guarding, abdomen not rigid and no hepatosplenomegaly Skin: no rashes, warm and dry Genitourinary: Poole catheter, punch colored urine in bag Results & Data Results & Data ([facility]) Vital Signs (Past 12 Hours) Vital Signs Temp Pulse Resp BP Pulse Ox 11/15/19 07:14 36.6 C 58 L 16 95/51 L 95 11/15/19 02:18 37.1 C 66 16 107/53 L 100 11/15/19 01:30 37.7 C H 67 20 117/43 L 98 11/15/19 00:30 69 20 123/45 L [address] NONCONTRAST CT DOSE: 1915.68 mGycm HISTORY: weakness TECHNIQUE: Multiaxial CT images of the head were performed without the use of in travenous contrast. Automated exposure control was utilized for this study. A dose lowering technique was utilized adhering to the principles of ALARA. Comparison: Head CT 10/11/2019. Findings: The paranasal sinuses and mastoid air cells are clear. The calvarium and skull base are intact. The ventricles and sulci are within normal limits. There is no mass, hematoma, midline shift, or acute infarct. Impression: No acute intracranial abnormality. --- CT abd pelvis IV con only CT DOSE: 465.71 mGy.cm HISTORY: Pain acute pancreatitis TECHNIQUE: Multiaxial CT images of the abdomen and pelvis were performed following the use of intravenous contrast. A dose lowering technique was utilized adhering to the principles of ALARA. COMPARISON STUDY: 10/06/2019 FINDINGS: Chronic basilar interstitial change unaltered from the prior exam. Findings of a component of the hepatic cirrhosis. Gallstones are present within the gallbladder lumen. Stable moderate splenomegaly. Upper abdominal varices unchanged. Multiple bilateral renal cysts unchanged from the prior study. No evidence for hydronephrosis. Fluid-filled colon with slight distention. This appears to be secondary to a fecal impaction. No well-defined obstructing mass. No evidence for abscess or collection. Visualized components of the pancreas are unremarkable. No evidence for pancreatitis of this exam. IMPRESSION: 1. Findings of mild hepatic cirrhosis with evidence for upper abdominal varices and splenomegaly. 2. These findings are unchanged from the prior study, with the pancreas appearing unremarkable. 3. Bilateral nephrocalcinosis as well as renal cysts with no evidence for obstruction. 4. Rectal fecal impaction with evidence for secondary mild to moderate colonic dilatation. 5. Mild body wall anasarca slightly increased from the prior exam. PG Care Time/CCT Total # of Minutes Spent Total Time Spent with Patient: Total time spent is greater than 50% in coordination of care (as documented) at patient's floor/unit and/or counseling patient: Coding Level of Care Code 80024 Subseq Hosp Care Lvl 2 Diagnoses Acute encephalopathy G93.40 Liver cirrhosis K74.60 Diabetes mellitus type 2 in obese E11.69; E66.9 COPD (chronic obstructive pulmonary disease) J44.9 COPD type: unspecified COPD (1) COPD (chronic obstructive pulmonary disease) COPD type: unspecified COPD Qualified Code(s): J44.9 - Chronic obstructive pulmonary disease, unspecified
--- NOTE | 2019-11-15 13:08 | Pharmacy Report ---
Pharmacy Glycemic Short Note 2 - Date of Service November 15, 2019 - Glycemic Short BSG Results (Last 24 hours): 11/14/19 11/15/19 11/15/19 23:13 02:17 07:35 Glucose 311 H* POC Glucose 282 H 249 H 11/15/19 11/15/19 09:40 11:20 Glucose 286 H POC Glucose 265 H OUTPATIENT ANTIDIABETIC REGIMEN: * Lantus 15 units SQ BID * Novolog AC * Goal range:110-140 mg/dL * Correction factor: 25 mg/dL/unit * Carb ratio: 1 unit per 3 gm CHO * HbA1c: 8.4% (10/26/19) ASSESSMENT: * Ms Rangel is a 69yo diabetic female admitted with acute encephalopathy, r/o UTI. * Patient is well-known to the pharmacy glycemic mgmt service from past admissions, most recently last month. * Insulin regimen initiated based on glycemic data from past admissions. * Pt is receiving IVF, NSS @ 125mL/hr. She appears to be tolerating her diabetic diet. PLAN FOR INPATIENT GLYCEMIC CONTROL: * Basal insulin * Lantus 15 units SQ BID * Bolus insulin * NovoLog per scale ACHS or Q6hrs while NPO * Goal Range: Low 110 mg/dL - High 140 mg/dL * Correction Factor: 25 mg/dL/unit * Nutritional / Prandial insulin per carb ratio of 1 unit per 3 grams CHO consumed PLAN FOR DISCHARGE: * more to follow based on insulin requirements during admission
[2019-11-15] MEDS: LACTULOSE SYRUP 20 GM/30 ML UDC PO SCH ×2 (13:12→20:31)
--- NOTE | 2019-11-15 14:31 | Electrocardiogram Report ---
Test Reason : Blood Pressure : / mmHG Vent. Rate : 069 BPM Atrial Rate : 069 BPM P-R Int : 146 ms QRS Dur : 100 ms QT Int : 432 ms P-R-T Axes : -20 054 -02 degrees QTc Int : 463 ms Normal sinus rhythm Nonspecific T wave abnormality Abnormal ECG When compared with ECG of 25-OCT-2019 10:23, No significant change Confirmed by Harry Ely [id number] on 11/15/2019 2:31:21 PM Referred By: REFERRED SELF Confirmed By:Harry Ely
[2019-11-15] MEDS: ATORVASTATIN 20 MG TAB PO SCH (20:28)
[2019-11-15] MEDS: ESCITALOPRAM OXALATE 10 MG TAB PO SCH (20:29)
[2019-11-15] MEDS: nadoloL 40 MG TAB PO SCH (20:29)
--- NOTE | 2019-11-16 03:21 | Billing Data ---
Date of Service November 16, 2019 Coding Level of Care Code 30045 OBS Care - Level 3
[2019-11-16 06:14] LABS: Hematocrit (blood only) 24.4 % (37-47); Hemoglobin 8.3 g/dL (12.0-16.0); Mean Corpuscular Hemoglobin 35.3 pg (25-34); Mean Corpuscular Volume 103.8 fL (80-100); RDW Coefficient of Variation 16.6 % (11.5-14.5); RDW Standard Deviation 62.7 fL (36.4-46.3); Red Blood Count 2.35 M/uL (4.2-5.4); White Blood Count 4.69 K/uL (4.8-10.8)
[2019-11-16 06:23] LABS: Mean Platelet Volume 10.3 fL (7.4-10.4); Platelet Count 57 K/uL (130-400)
[2019-11-16 06:49] LABS: Albumin Level 1.4 gm/dl (3.4-5.0); BUN Creatinine Ratio 16.5 (10-20); Calcium 7.6 mg/dl (8.5-10.1); Est GFR (African American) 76.1; Est GFR (Non-African American) 65.7; Potassium 2.9 mmol/L (3.5-5.1)
[2019-11-16 06:56] LABS: Albumin Globulin Ratio 0.3 (0.9-2); Bilirubin,Total 0.7 mg/dl (0.2-1); Globulin 4.3 gm/dl (2.5-4.0); Total Protein 5.7 gm/dl (6.4-8.2)
[2019-11-16 07:15] LABS: Basophils # (auto) 0.02 K/uL (0-0.2); Basophils % (auto) 0.4 %; Eosinophils # (auto) 0.13 K/uL (0-0.5); Eosinophils % (auto) 2.8 %; Immature Granulocytes # (auto) 0.02 K/uL (0.00-0.02); Immature Granulocytes % (auto) 0.4 %; Lymphocytes # (auto) 1.56 K/uL (1.2-3.4); Lymphocytes % (auto) 33.3 %; Macrocytosis Present; Monocytes # (auto) 0.59 K/uL (0.11-0.59); Monocytes % (auto) 12.6 %; Neutrophils # (auto) 2.37 K/uL (1.4-6.5); Neutrophils % (auto) 50.5 %; Ovalocytes 1+
[2019-11-16] MEDS: MAGNESIUM OXIDE 400 MG TAB PO SCH (08:29)
[2019-11-16] MEDS: GABAPENTIN 300 MG CAP PO SCH ×2 (08:29→20:25)
[2019-11-16] MEDS: LACTULOSE SYRUP 20 GM/30 ML UDC PO SCH ×3 (08:29→20:20)
[2019-11-16] MEDS: FERROUS GLUCONATE 324 MG TAB PO SCH ×2 (08:29→20:21)
[2019-11-16] MEDS: POTASSIUM CHLORIDE 20 MEQ TABCR PO SCH ×2 (08:29→20:24)
[2019-11-16] MEDS: FOLIC ACID 1 MG TAB PO SCH (08:29)
[2019-11-16] MEDS: RIFAXIMIN 550 MG TABLET PO SCH ×2 (08:29→20:23)
[2019-11-16] MEDS: INSULIN GLARGINE SOLOSTAR 100 UNITS/ML 3 ML PEN SC SCH ×2 (08:30→20:28)
[2019-11-16] MEDS: PANTOprazole 40 MG TAB PO SCH ×2 (08:30→16:14)
[2019-11-16] MEDS: INSULIN ASPART 100 UNITS/ML 3 ML PEN SC SCH ×4 (08:31→20:29)
[2019-11-16] MEDS ORDERED: POTASSIUM CHLORIDE 20 MEQ TABCR PO STA (09:03)
[2019-11-16] MEDS ORDERED: POTASSIUM CHLORIDE 20 MEQ TABCR PO ONE (13:00)
--- NOTE | 2019-11-16 18:58 | Hospitalist Progress Note ---
Date of Service November 16, 2019 Assessment & Plan (1) Acute encephalopathy: hepatic encephalopathy most likely - while she is quite brittle and usually is triggered by dehydration, constipation, or hyperglycemia - current trigger unclear - hwoever, as is often her case, she is already improving. PT/OT eval and treat ?hopefully home (2) UTI (urinary tract infection): questionable to doubtful - no urinary sx, and stable off abx. but did have fever night of admission - no other sx. continue to follow off abx. (3) Liver cirrhosis: known, chronic (4) Increased ammonia level: (5) Diabetes: sugars reasonable - continue current (6) Hypokalemia: replace (7) DVT prophylaxis: scd Admission and Anticipated Discharge Date Admission Date: November 15, 2019 Subjective feeling better still seems tired but feels more like herself. can't really grasp what caused it this time - just fell foward and was out of it. feeling better now. ate well this morning. out of bed. thinking she would probably do ok at home but agrees with my supposition that we see how she does through the day. when i attempt to revisit she is sitting on bedside commode and eating dinner. Review of Systems Review of Systems: All systems reviewed & are unremarkable except as noted in HPI & below Physical Exam Physical Exam: gen pleasant nad heent nc at mmm breathing unlabored no pallor or icterus no focal neuro deficits Results & Data Results & Data ([facility]) Vital Signs (Past 12 Hours) Vital Signs Temp Pulse Resp BP Pulse Ox 11/16/19 15:46 97.7 F 56 L 18 127/56 L 97 11/16/19 07:10 97.7 F 58 L 20 104/44 L 100 PG Care Time/CCT Total # of Minutes Spent Total Time Spent with Patient: Total time spent is greater than 50% in coordination of care (as documented) at patient's floor/unit and/or counseling patient: Coding Level of Care Code 49397 Subseq Hosp Care Lvl 3 Diagnoses Acute encephalopathy G93.40 UTI (urinary tract infection) N39.0 Hematuria presence: without hematuria Urinary tract infection type: site unspecified Liver cirrhosis K74.60 Increased ammonia level R79.89 Diabetes E11.9 Hypokalemia E87.6 DVT prophylaxis Z29.9 (1) UTI (urinary tract infection) Hematuria presence: without hematuria Urinary tract infection type: site unspecified Qualified Code(s): N39.0 - Urinary tract infection, site not specified
--- NOTE | 2019-11-16 18:59 | Billing Data ---
Date of Service November 16, 2019 Coding Level of Care Code 79234 Subseq Obs Care Lvl 3 Comment should be 226 not 233
[2019-11-16] MEDS: ATORVASTATIN 20 MG TAB PO SCH (20:21)
[2019-11-16] MEDS: nadoloL 40 MG TAB PO SCH (20:22)
[2019-11-16] MEDS: ESCITALOPRAM OXALATE 10 MG TAB PO SCH (20:27)
[2019-11-17 07:02] LABS: BUN Creatinine Ratio 14.5 (10-20); Creatinine Clr Calc Pharmacy 48.9 ml/min; Est GFR (African American) 64.5; Est GFR (Non-African American) 55.7; Potassium 3.9 mmol/L (3.5-5.1)
[2019-11-17] MEDS: RIFAXIMIN 550 MG TABLET PO SCH ×2 (08:11→21:12)
[2019-11-17] MEDS: PANTOprazole 40 MG TAB PO SCH ×2 (08:11→17:26)
[2019-11-17] MEDS: LACTULOSE SYRUP 20 GM/30 ML UDC PO SCH ×3 (08:11→21:11)
[2019-11-17] MEDS: GABAPENTIN 300 MG CAP PO SCH ×2 (08:11→21:08)
[2019-11-17] MEDS: MAGNESIUM OXIDE 400 MG TAB PO SCH (08:12)
[2019-11-17] MEDS: FOLIC ACID 1 MG TAB PO SCH (08:12)
[2019-11-17] MEDS: POTASSIUM CHLORIDE 20 MEQ TABCR PO SCH ×2 (08:12→21:10)
[2019-11-17] MEDS: FERROUS GLUCONATE 324 MG TAB PO SCH ×2 (08:12→21:09)
[2019-11-17] MEDS: INSULIN ASPART 100 UNITS/ML 3 ML PEN SC SCH ×4 (08:40→21:15)
[2019-11-17] MEDS: INSULIN GLARGINE SOLOSTAR 100 UNITS/ML 3 ML PEN SC SCH ×2 (08:40→21:12)
[2019-11-17] MEDS: POTASSIUM CHLORIDE 20 MEQ in SODIUM CHLORIDE 0.45 % 1,000 ML IV SCH ×2 (09:35→21:24)
--- NOTE | 2019-11-17 14:56 | Pharmacy Report ---
Pharmacy Glycemic Short Note 2 - Date of Service November 17, 2019 - Glycemic Short BSG Results (Last 24 hours): 11/16/19 11/16/19 11/17/19 16:33 20:16 05:50 Glucose 149 H POC Glucose 177 H 196 H 11/17/19 11/17/19 07:35 11:48 Glucose POC Glucose 160 H 183 H OUTPATIENT ANTIDIABETIC REGIMEN: * Lantus 15 units SQ BID * Novolog AC * Goal range:110-140 mg/dL * Correction factor: 25 mg/dL/unit * Carb ratio: 1 unit per 3 gm CHO * HbA1c: 8.4% (10/26/19) ASSESSMENT: 11/17/19: * Ms Rangel received 62 units of insulin yesterday, with BSGs ranging from 103- 196mg/dL. * Fasting BSG above goal range this morning -- Lantus increased slighly this morning. * BSGs have been trending up throughout the day -- carb ratio tightened slightly this morning. 11/15/19 * Ms Rangel is a 69yo diabetic female admitted with acute encephalopathy, r/o UTI. * Patient is well-known to the pharmacy glycemic mgmt service from past admissions, most recently last month. * Insulin regimen initiated based on glycemic data from past admissions. * Pt is receiving IVF, NSS @ 125mL/hr. She appears to be tolerating her diabetic diet. PLAN FOR INPATIENT GLYCEMIC CONTROL: * Basal insulin * Lantus 17 units SQ BID * Bolus insulin * NovoLog per scale ACHS or Q6hrs while NPO * Goal Range: Low 110 mg/dL - High 140 mg/dL * Correction Factor: 25 mg/dL/unit * Nutritional / Prandial insulin per carb ratio of 1 unit per 2.5 grams CHO consumed PLAN FOR DISCHARGE: * Recent A1c (8.4%) indicates sub-optimal glycemic control as an outpt. Goal A1c ~7.0%? * With patient's comorbidities (hepatic encephalopathy, neuropathy, etc) suspect that patient is at a higher fall risk. It is probably reasonable to continue conservative glycemic mgmt in order to minimize the risk of hypoglycemia. * Recommend f/u with PCP to optimize A1c in relation to comorbidities.
--- NOTE | 2019-11-17 17:59 | Hospitalist Progress Note ---
Date of Service November 17, 2019 Assessment & Plan (1) Acute encephalopathy: hepatic encephalopathy improved. inciting cause was not totally clear - but now w hypernatremia and metabolic acidosis i'm suspecting she had a mild degree of deydration that is now manifesting in labwork (?either worse due to poor intake in hospital or more likely due to losses from BMs) (2) Hypernatremia: hypernatremic dehydration and metabolic acidosis - see above - probably was a little dehydrated prior to admission as cause of encephalopahty, and before she totally recovered from that large BMs from lactulose (?adherence at home) made 'lytes worse. IVF, follow. (3) UTI (urinary tract infection): no infection --> asymptomatic bacteriuria. no urinary sx for days, had rocephin for presumed treatment but grew VRE. follow clinically. (4) Liver cirrhosis: known, chronic (5) Increased ammonia level: related to cirrhosis/encephalopathy (6) Diabetes: sugars remain acceptable - continue current (7) Hypokalemia: replaced (8) DVT prophylaxis: scd (9) Discharge planning issues: anticipate home once hypernatremia and acidosis improved. hopefully 11/17 Admission and Anticipated Discharge Date Admission Date: November 17, 2019 Subjective "when can i go home" feels OK - thinks she ate well for breakfast. up and around wtihout much difficulty. large BMs w lactulose. no other new issues from pt. labs reviewed/noted/d/w pt Review of Systems Review of Systems: All systems reviewed & are unremarkable except as noted in HPI & below Physical Exam Physical Exam: gen aao pleasant nad heent nc at mmm breathing unlabored no accessory muscles good effort skin no rashes no pallor or icterus Results & Data Results & Data ([facility]) Vital Signs (Past 12 Hours) Vital Signs Temp Pulse Resp BP Pulse Ox 11/17/19 15:10 97.9 F 61 16 124/56 L 98 11/17/19 07:23 97.9 F 62 16 127/55 L 100 PG Care Time/CCT Total # of Minutes Spent Total Time Spent with Patient: Total time spent is greater than 50% in coordination of care (as documented) at patient's floor/unit and/or counseling patient: Coding Level of Care Code 46485 Subseq Hosp Care Lvl 3 Diagnoses Acute encephalopathy G93.40 Hypernatremia E87.0 UTI (urinary tract infection) N39.0 Hematuria presence: without hematuria Urinary tract infection type: site unspecified Liver cirrhosis K74.60 Increased ammonia level R79.89 Diabetes E11.9 Hypokalemia E87.6 DVT prophylaxis Z29.9 Discharge planning issues Z02.9 (1) UTI (urinary tract infection) Hematuria presence: without hematuria Urinary tract infection type: site unspecified Qualified Code(s): N39.0 - Urinary tract infection, site not specified
[2019-11-17] MEDS: ESCITALOPRAM OXALATE 10 MG TAB PO SCH (21:09)
[2019-11-17] MEDS: ATORVASTATIN 20 MG TAB PO SCH (21:10)
[2019-11-17] MEDS: nadoloL 40 MG TAB PO SCH (21:23)
[2019-11-18] MEDS: MAGNESIUM OXIDE 400 MG TAB PO SCH (08:40)
[2019-11-18] MEDS: FERROUS GLUCONATE 324 MG TAB PO SCH (08:40)
[2019-11-18] MEDS: FOLIC ACID 1 MG TAB PO SCH (08:40)
[2019-11-18] MEDS: PANTOprazole 40 MG TAB PO SCH (08:40)
[2019-11-18] MEDS: RIFAXIMIN 550 MG TABLET PO SCH (08:41)
[2019-11-18] MEDS: POTASSIUM CHLORIDE 20 MEQ TABCR PO SCH (08:41)
[2019-11-18] MEDS: GABAPENTIN 300 MG CAP PO SCH (08:41)
[2019-11-18] MEDS: LACTULOSE SYRUP 20 GM/30 ML UDC PO SCH (08:41)
[2019-11-18] MEDS: INSULIN ASPART 100 UNITS/ML 3 ML PEN SC SCH ×2 (08:42→12:33)
[2019-11-18] MEDS ORDERED: INSULIN GLARGINE SOLOSTAR 100 UNITS/ML 3 ML PEN SC SCH ×2 (09:00→21:00)
[2019-11-18 09:21] LABS: BUN Creatinine Ratio 13.5 (10-20); Calcium 7.6 mg/dl (8.5-10.1); Creatinine Clr Calc Pharmacy 56.6 ml/min; Est GFR (African American) 77.2; Est GFR (Non-African American) 66.6; Potassium 3.7 mmol/L (3.5-5.1)
--- NOTE | 2019-11-18 11:18 | Pharmacy Report ---
Pharmacy Glycemic Short Note 2 - Date of Service November 18, 2019 - Glycemic Short BSG Results (Last 24 hours): 11/17/19 11/17/19 11/17/19 11:48 16:24 20:08 Glucose POC Glucose 183 H 145 H 91 11/18/19 11/18/19 11/18/19 07:12 07:42 07:43 Glucose Cancelled POC Glucose 60 L* 61 L* 11/18/19 11/18/19 08:02 08:41 Glucose 128 H POC Glucose 80 OUTPATIENT ANTIDIABETIC REGIMEN: * Lantus 15 units SQ BID * Novolog AC * Goal range:110-140 mg/dL * Correction factor: 25 mg/dL/unit * Carb ratio: 1 unit per 3 gm CHO * HbA1c: 8.4% (10/26/19) ASSESSMENT: 11/18/19: * Pt received 89 units of insulin over the past 24hrs * 34 units basal * 55 units bolus * Pt with LOW BSG this AM (BSG = 60 mg/dl). Most likely secondary to too much basal insulin (ordered 17units BID - outpatient dosing is 15units BID) * Will reduce AM dose of Lantus this morning and then resume outpatient dosing this evening. * Will slightly reduce CR as well since BSG dropped 145 --> 91 after CH coverage yesterday. 11/17/19: * Ms Rangel received 62 units of insulin yesterday, with BSGs ranging from 103- 196mg/dL. * Fasting BSG above goal range this morning -- Lantus increased slighly this morning. * BSGs have been trending up throughout the day -- carb ratio tightened slightly this morning. 11/15/19 * Ms Rangel is a 69yo diabetic female admitted with acute encephalopathy, r/o UTI. * Patient is well-known to the pharmacy glycemic mgmt service from past admissions, most recently last month. * Insulin regimen initiated based on glycemic data from past admissions. * Pt is receiving IVF, NSS @ 125mL/hr. She appears to be tolerating her diabetic diet. PLAN FOR INPATIENT GLYCEMIC CONTROL: * Basal insulin: decrease * Lantus 13 units SQ x 1 dose this AM then 15 units SQ BID * Bolus insulin: loosen CR * NovoLog per scale ACHS or Q6hrs while NPO * Goal Range: Low 110 mg/dL - High 140 mg/dL * Correction Factor: 25 mg/dL/unit * Nutritional / Prandial insulin per carb ratio of 1 unit per 3 grams CHO consumed PLAN FOR DISCHARGE: * Recent A1c (8.4%) indicates sub-optimal glycemic control as an outpt. Goal A1c ~7.0%? * With patient's comorbidities (hepatic encephalopathy, neuropathy, etc) suspect that patient is at a higher fall risk. It is probably reasonable to continue conservative glycemic mgmt in order to minimize the risk of hypoglycemia. * Recommend f/u with PCP to optimize A1c in relation to comorbidities.
--- NOTE | 2019-11-18 14:05 | Discharge Summary ---
Date of Service November 18, 2019 Admission HPI Per Admitting Provider Mrs. Rangel is a medically complicated 69 yo female with PMHx significant for suspected hepatocellular carcinoma, liver cirrhosis, portal hypertension, recurrent hepatic encephalopathy, who presents for evaluation of altered mental status. Per review of emergency department intake, Mrs. Rangel's son called an ambulance after he noticed a change in her baseline mentation over the course of the day. Mrs. Rangel has had several recent admissions for altered mental status, nearly all of which were thought to be secondary hepatic encephalopathy, often multifactorial with various metabolic etiologies (infections, electrolyte abnormalities, elevated blood sugars, etc). No family is present at bedside for additional history. ED course: Patient febrile to 38.4. BP 117/43. HR 67. RR 20. WBC normal. Potassium low at 3.1. INR 1.4. Ammonia 65.4. Lactate 3.1. UA 4+ bacteria, 5-10 WBCs, neg for nitrites and LE. Urine culture pending. Blood cultures pending. CXR obtained. Given 1/2 liter normal saline bolus; 2 g IV rocephin for suspected urinary tract infection. Principal Diagnosis hepatic encephalopathy Discharge Exam gen pleasant nad heent nc at mmm breathing unlabored no accessory muscles good effort skin no rashes no pallor or icterus neuro no focal deficits Discharge Data Allergies Allergy/AdvReac Type Severity Reaction Status Date / Time methyl salicylate Allergy Mild RASH Verified 11/14/19 23:24 nickel Allergy Mild RASH Verified 11/14/19 23:24 zinc Allergy Mild RASH Verified 11/14/19 23:24 mint Allergy Unknown Unknown Verified 11/14/19 23:24 diphenhydramine AdvReac Intermediate BURNING Verified 11/14/19 23:24 EYES,DIZZY,BLISTERS Consultations 11/15/19 00:10 ED Decision to Admit Stat Hospital Course (1) Acute encephalopathy: hepatic encephalopathy improved. inciting cause was not totally clear initially - but once she showed hypernatremia and metabolic acidosis i'm suspecting she had a mild degree of dehydration - clinically improved, labs improving w fluids - safe for home (2) Hypernatremia: hypernatremic dehydration and metabolic acidosis - see above - probably was a little dehydrated prior to admission as cause of encephalopahty, and before she totally recovered from that large BMs from lactulose (?adherence at home) made 'lytes worse. given that she is not appearing to be a CHF patient (and having cared for her many times i do not recall pulmonary edema/CHF being an issue, on chart review echo from earlier this year appears quite reassuring) i will reduce lasix to 10mg to try to increase "margin of error" given how brittle she is to become encephalopathic - even when a little dehydrated (3) UTI (urinary tract infection): no infection --> asymptomatic bacteriuria. no urinary sx for days, had rocephin for presumed treatment but grew VRE. home without abx (4) Liver cirrhosis: known, chronic (5) Increased ammonia level: related to cirrhosis/encephalopathy (6) Diabetes: home regimen, outpt f/u (7) Hypokalemia: replaced (8) DVT prophylaxis: scd (9) Discharge planning issues: safe for home, close f/u, BMP later this week see instructions below given to pt as well Total Time Total Time Spent Total Time Spent (In Minutes): <30 Discharge Plan Discharge Items Patient Disposition: Home - Self-Care Reason For Visit: ALTERED MENTAL STATUS Discharge Diagnosis: recurrent hepatic encepahalopathy - this time appearing related to dehydration Activity: Resume your previous activity Non-emergency contact: Primary Care Provider Call non-emergency contact if: you have any medication questions Diet: Carb Consistent or DM2 and Low Sodium (2gm) Addtl Attending Provider Instructions: hepatic encephalopathy -you appear to have had another episode of confusion related to your liver. unfortunately your status appears to be quite brittle in this regard and it does not appear to take much to tip you into trouble. this time, after further review, it seems that it was most consistent with a degree of dehydration that caused you to get into trouble. (other times it has been constipation and high sugars) -fortunately you are doing better and do appear safe to go home; the main "loose ends" would be following up labwork to make sure that things get back to your normal (so basic metabolic panel - BMP - should be drawn around wednesday or of this week); also there would be a bit of a "work in progress" on your lasix (furosemide) dosing -- while that is a common medication for people with cirrhosis to avoid too much fluid buildup, it also can make people more prone to dehydration. since you're not in a situation where your heart easily overflows with fluid (you don't have congestive heart failure/pulmonary edema) we will cautiously try dropping the lasix (furosemide) to 10mg daily (down to half of the 20mg you were taking). if you notice worsening swelling we may need to resume the 20mg dosing; if you were to notice shortness of breath (most early on it is shortness of breath when laying flat, or shortness of breath when walking) then we would definitely want you resuming the 20mg dosing AND calling your PCP for further instructions and/or to be seen urine culture -you did have a positive urine culture - but with no urinary symptoms and no other signs of infection, we're frequently seeing that postmenopausal women will have a positive urine culture that does not mean infection. in those circumstances, it causes more harm than good to treat - which is why we don't have you on antibiotics for this at this time. to do: -reduce lasix (furosemide) to 10mg daily (down from 20mg) -labwork (BMP, basic metabolic panel) wednesday or this week -follow your weight every day, follow for swelling, and follow your breathing -- if weight/swelling go up and/or your breathing worsens that would warrant a phone call the same day to your PCP Pending Studies at Discharge: No Stand-Alone Forms: My [facility] [place]zz[place], Smoking Cessation Medications and DC Order Prescriptions: New furosemide 20 mg tablet 10 mg PO QAM Qty: 15 RF: 0 Continued (DME) pen needle, diabetic [BD Teressa 2nd Gen Pen Needle] 32 gauge x 5/32" needle See Rx Instructions .ROUTE .MEDSUPPLY Qty: 100 RF: 0 ferrous gluconate [Ferate] 240 mg (27 mg iron) tablet 240 mg PO BID RF: 0 acetaminophen [Tylenol] 325 mg tablet 650 mg PO Q6H PRN (Reason: pain/fever) RF: 0 (DME) lancets 30 gauge misc See Dose Instructions .ROUTE .MEDSUPPLY RF: 0 atorvastatin 20 mg tablet 20 mg PO HS Qty: 90 RF: 0 potassium chloride 20 mEq tablet extended release 20 meq PO BID RF: 0 cholecalciferol (vitamin D3) 2,000 unit Capsule 2,000 unit PO QAM RF: 0 nadolol 20 mg tablet 20 mg PO QPM RF: 0 pantoprazole 40 mg tablet,delayed release (DR/EC) 40 mg PO BIDM RF: 0 folic acid 1 mg tablet 1 mg PO QAM RF: 0 escitalopram oxalate 10 mg tablet 10 mg PO HS RF: 0 Xifaxan 550 mg Tablet 550 mg PO BID RF: 0 gabapentin 300 mg Capsule 300 mg PO BID RF: 0 Fleet Enema 19-7 gram/118 mL Enema 118 ml MO DAILY PRN (Reason: Constipation) RF: 0 magnesium hydroxide [Milk of Magnesia] 400 mg/5 mL Suspension 30 ml PO DAILY PRN (Reason: Constipation) RF: 0 lactulose 20 gram/30 mL Solution 20 gm PO BID Qty: 3000 RF: 0 insulin aspart U-100 [Novolog Flexpen U-100 Insulin] 100 unit/mL (3 mL) Insulin Pen 1 units SC AC Qty: 3 RF: 0 Lantus Solostar U-100 Insulin 100 unit/mL (3 mL) Insulin Pen 15 units SC BID Qty: 15 RF: 0 magnesium oxide 400 mg (241.3 mg magnesium) tablet 400 mg PO DAILY Qty: 30 RF: 0 Discontinued furosemide 20 mg tablet 20 mg PO DAILY PRN (Reason: weight gain/swelling) RF: 0 Discharge Orders: Discharge Order (Routine); Ordered 11/18/19 Ordered By: Mitchell Bazan Admission Data Admit Date/Time: 11/17/19 10:19 Attending Provider: Mitchell Bazan Admit Provider: Mala Liz Primary Care Provider: PCP,NO Other Providers: Triston Kaba ; [facility] ; Manoj Samuel Other Interventions: Discharge Summary Assessment (RN) Last Done: 11/18/19 12:16 Coding Level of Care Code D/C Day Management <30 mins Diagnoses Acute encephalopathy G93.40 Hypernatremia E87.0 UTI (urinary tract infection) N39.0 Hematuria presence: without hematuria Urinary tract infection type: site unspecified Liver cirrhosis K74.60 Increased ammonia level R79.89 Diabetes E11.9 Hypokalemia E87.6 DVT prophylaxis Z29.9 Discharge planning issues Z02.9
== END 2019-11-18 14:43 | disposition home health service (06) | DRG 441 ==
LOC: ED 22:52 → 2N 22:52 → SUATTDRO 11-15 01:23 → 2N 11-15 01:49